=== PATIENT | female | born 1955 | race Caucasian/White ===

== ENCOUNTER 2017-02-26 13:51 | Observation (INO) | payer OTHER ==
[2017-02-26] MEDS ORDERED: Aspirin Low Dose CHEW TAB* 81 MG PO ONE (14:34)
[2017-02-26] MEDS ORDERED: NS 0.9% 1000 ML* 1,000 ML IV ONE (14:41)
[2017-02-26] MEDS ORDERED: Nitroglycerin TAB 0.4 MG* 0.4 MG TAB SL PRN (14:41)
--- NOTE | 2017-02-26 15:17 | RAD ---
HISTORY: Chest pain COMPARISONS: February 29, 2016 VIEWS:1: Single frontal portable view of the chest at 3 FINDINGS: LINES AND TUBES: A left-sided AICD pacer is noted. CARDIOMEDIASTINAL SILHOUETTE: The cardiomediastinal silhouette is normal for portable technique. PLEURA: The costophrenic angles are sharp. No pleural abnormalities are noted. LUNG PARENCHYMA: The lungs are clear. ABDOMEN: The upper abdomen is clear. There is no subphrenic gas. BONES AND SOFT TISSUES: No bone or soft tissue abnormalities are noted. IMPRESSION: NO ACTIVE CARDIOPULMONARY DISEASE.
[2017-02-26 15:21] LABS: Hematocrit 41 % (35-47); Mean Corpuscular HGB Conc 32 g/dl (31-36); Mean Corpuscular Hemoglobin 26 pg (27-31); Mean Corpuscular Volume 81 fL (80-97); Mean Platelet Volume 9 um3 (7.4-10.4); Red Blood Count 4.99 10^6/ul (4.0-5.4); Red Cell Distribution Width 15 % (10.5-15); White Blood Count 7.6 10^3/ul (3.5-10.8)
[2017-02-26 15:37] LABS: Albumin 3.9 g/dL (3.2-5.2); BUN/Creatinine Ratio 18.7 (8-20); Calcium 9.7 mg/dL (8.6-10.3); EGFR African American 80.6 (>60); EGFR Non-African American 62.6 (>60); Globulin 3.6 g/dL (2-4); Potassium 4.2 mmol/L (3.5-5.0); Total Bilirubin 0.5 mg/dL (0.2-1.0); Total Protein 7.5 g/dL (6.4-8.9)
[2017-02-26 15:40] LABS: Troponin I 0.01 ng/mL (<0.04)
[2017-02-26 16:10] LABS: TSH (Thyroid Stimulating Horm) 3.77 mcIU/mL (0.34-5.60)
[2017-02-26] MEDS ORDERED: Dextrose 50% Syringe 50 ML* 25 GM/50 ML SYRINGE IV PUSH PRN ×2 (16:29→16:30)
[2017-02-26] MEDS ORDERED: Insulin LISPRO* 1 UNITS UNIT SUBCUT ONE (16:30)
[2017-02-26] MEDS ORDERED: Insulin GLARGINE(*) 1 UNITS UNIT SUBCUT SCH (17:00)
[2017-02-26] MEDS: Magnesium Oxide TAB* 400 MG PO SCH (18:33)
--- NOTE | 2017-02-26 18:45 | HP ---
ADDENDUM NOW INCLUDED ON THIS REPORT CC: Gia Carson MD, [facility] * HISTORY AND PHYSICAL: DATE OF ADMISSION: 02/26/17 PRIMARY CARE PROVIDER: Gia Carson MD, from [facility]. CHIEF COMPLAINT: Heaviness and uncontrolled sugars as well as chest pain. HISTORY OF PRESENT ILLNESS: Kinjal Alcantar is a 61-year-old female with a history of diabetes, obstructive sleep apnea, cardiomyopathy with EF of 22%, who presents to the hospital complaining of feeling "like an elephant." The patient stated that she feels overall very heavy and weak. She stated that she had not been able to control her sugars for the past 3 days. She also stated that she developed sharp substernal chest pain not related to exercise and not pleuritic. Currently, she is chest pain free. She was evaluated in the emergency department. She was noted to have sugars in the 300 range. There are no other abnormalities noted. Her EKG is paced. Her troponin is unremarkable. She is going to be placed on overnight observation with diagnosis of chest pain. PAST MEDICAL HISTORY: 1. History of ischemic cardiomyopathy with EF of 22%. 2. History of coronary artery disease. 3. Status post pacemaker placement. 4. Obstructive sleep apnea, on CPAP. 5. COPD, not on oxygen. 6. Paroxysmal atrial fibrillation. 7. Severe tricuspid regurgitation. 8. Pulmonary hypertension. 9. Diabetes type 2. 10. History of bilateral DVTs. 11. History of IV CONTRAST ALLERGY. The patient develops rash. ALLERGIES: Include METFORMIN, causes chest pain and rash. JANUVIA causes chest pain and rash. TETRACYCLINE causes hives. ZOFRAN, itching. LATEX, rash. DEMEROL, unknown reaction. The patient also is allergic to DARVON, CEPHALOSPORIN, CONTRAST as described above, LOSARTAN, NIACIN, NONSTEROIDAL ANTIINFLAMMATORY MEDICATIONS, PENICILLIN, RAMIPRIL, ATORVASTATIN, PERTUSSIS VACCINE, DIPHTHERIA VACCINE, BEE STINGS. FAMILY HISTORY: Positive for sister and grandfather with DVTs. SOCIAL HISTORY: The patient quit smoking in 2005 after a history of 30-pack- year smoking. She drinks alcohol occasionally. She denies any drugs. She is and lives alone and her daughter, Kyung Alcantar, is her surrogate. REVIEW OF SYSTEMS: Please see history of present illness. In addition to the described above in history of present illness, the patient stated that she has occasional leg swelling which is chronic. She uses her CPAP at night. Ambulates without any problems. She denies any shortness of breath. She has had no problems with her bowels. She denies any nausea or vomiting and her appetite has been good. She denies any headache or visual changes. All the remaining 14 systems were reviewed with the patient and were otherwise negative. PHYSICAL EXAMINATION GENERAL: The patient is a very pleasant 61-year-old female with a BMI of 35 who is in no acute distress. Alert, awake, and oriented x3. VITAL SIGNS: Blood pressure 151/70, heart rate of 63 and regular, respiratory rate 20, oxygen saturation 100% on room air, temperature 97.6. HEENT: Head: Atraumatic, normocephalic. Eyes: Pupils equal, reactive to light and accommodation. Oropharynx clear. Mucosa moist. NECK: Supple. No JVD. No bruit bilaterally. RESPIRATORY: Clear to auscultation bilaterally. CARDIOVASCULAR: Regular rate and rhythm. No murmur. ABDOMEN: Soft, nontender. Bowel sounds present in all 4 quadrants. EXTREMITIES: There is trace bilateral pedal edema. Pulses are +2 bilaterally. No clubbing or cyanosis. NEUROLOGIC EVALUATION: Speech clear. Cranial nerves II through XII grossly intact. Motor strength 5/5 bilaterally. SKIN: On evaluation of the skin, no rashes noted. PSYCHIATRIC EVALUATION: Oriented x3 with no evidence of anxiety or depression. LABORATORY DATA AND STUDIES: Performed during the hospital stay included: The patient's EKG showed atrial sensed, ventricular paced heart rate of 70 beats per minute. It is comparable with prior EKG obtained a year ago on . The patient's portable chest x-ray, impression: "No active cardiopulmonary disease." White blood cell count of 7.6, hemoglobin of 13.0, hematocrit of 41, and platelets of 185,000. D-dimer of 267. PTT of 22. INR of 1.04. Sodium was 133, potassium 4.2, chloride 98, carbon dioxide 29, BUN 17, creatinine 0.91. Liver function tests were unremarkable. Sugars of 320. Lactic acid 1.1. Brain natriuretic peptide was 227. Troponin of 0.01. TSH of 3.7. ASSESSMENT AND PLAN: A 61-year-old female with a history of diabetes who presents to the hospital with complaints of overall generalized weakness and increased sugars as well as intermittent, sharp substernal chest pain. At this point, the patient has a history of deep venous thrombosis, but no pulmonary embolism and she is treated with Eliquis. In regards to the patient's chest pain, low probability for pulmonary embolism due to chronic anticoagulation. The patient stated that she is following the recommendations of treatment with Eliquis. She also is not hypoxic. She currently also does not have chest pain. At this point, she is going to be placed on overnight observation with followup troponins. She had a stress test documented in 2015 which showed large area of an infarct. Her EF was at that point 28% and the patient was high risk due to her low EF and large area of infarct, but no evidence of acute ischemia. In regards to the patient's uncontrolled diabetes, it is possible that she has an underlying infection, maybe urinary tract infection. Our urinalysis is still pending at the time of admission. She is going to be continued on her glyburide, insulin sliding scale, and insulin Lantus at increased dose from home at 30 units instead of 25. For her history of chronic systolic congestive heart failure, the patient is going to be continued on her diuretics. For DVT prophylaxis, the patient is already on Eliquis that is going to be continued. Code status is full. The patient's surrogate is her daughter. TIME SPENT: Approximately 65 minutes were spent on admission of this patient, more than half that time was spent [id number] with the patient during the interview and physical exam. ADDENDUM: DATE OF ADMISSION: 02/26/17 MEDICATIONS: Include: 1. Aspirin 81 mg daily. 2. Metoprolol succinate 100 mg b.i.d. 3. Glipizide 5 mg b.i.d. 4. Eliquis 2.5 mg b.i.d. 5. Furosemide 40 mg daily. 6. Crestor 40 mg daily. 7. Omeprazole 40 mg daily. 8. Aldactone 50 mg daily. 9. Lantus 25 units nightly. 10. Magnesium supplement on a daily basis. 11. Nitroglycerin tablet on a p.r.n. basis. [id number]/[facility] #: [id number]/[facility] #: [id number] [facility]
[2017-02-26 18:49] LABS: Hematocrit 39 % (35-47); Hemoglobin 12.6 g/dl (12.0-16.0); Mean Corpuscular HGB Conc 32 g/dl (31-36); Mean Corpuscular Hemoglobin 26 pg (27-31); Mean Corpuscular Volume 81 fL (80-97); Mean Platelet Volume 9 um3 (7.4-10.4); Red Blood Count 4.83 10^6/ul (4.0-5.4); Red Cell Distribution Width 15 % (10.5-15); White Blood Count 8.9 10^3/ul (3.5-10.8)
[2017-02-26] MEDS: Insulin LISPRO* 1 UNITS UNIT SUBCUT SCH ×2 (18:50→21:03)
[2017-02-26 19:04] LABS: BUN/Creatinine Ratio 18.2 (8-20); Calcium 9.3 mg/dL (8.6-10.3); EGFR African American 83.7 (>60); EGFR Non-African American 65.1 (>60); Potassium 3.9 mmol/L (3.5-5.0)
[2017-02-26 19:33] LABS: Urine Bacteria Absent (Absent); Urine Bilirubin Negative (Negative); Urine Glucose Negative (Negative); Urine Nitrite Negative (Negative)
--- NOTE | 2017-02-26 19:51 | HP ---
HISTORY AND PHYSICAL:* ADDENDUM: DATE OF ADMISSION: 02/26/17 MEDICATIONS: Include: 1. Aspirin 81 mg daily. 2. Metoprolol succinate 100 mg b.i.d. 3. Glipizide 5 mg b.i.d. 4. Eliquis 2.5 mg b.i.d. 5. Furosemide 40 mg daily. 6. Crestor 40 mg daily. 7. Omeprazole 40 mg daily. 8. Aldactone 50 mg daily. 9. Lantus 25 units nightly. 10. Magnesium supplement on a daily basis. 11. Nitroglycerin tablet on a p.r.n. basis. [id number]/[facility] [place] #: [id number] [facility]
[2017-02-26] MEDS: Acetaminophen TAB* 325 MG PO PRN (20:59)
[2017-02-26] MEDS: Metoprolol Succinate XL TAB* 100 MG PO SCH (21:00)
[2017-02-26] MEDS: glyBURIDE TAB* 5 MG PO SCH (21:00)
[2017-02-26] MEDS ORDERED: Omeprazole CAP* 20 MG PO SCH (21:00)
[2017-02-26] MEDS ORDERED: CMCS Rosuvastatin (NF) 20 MG TAB PO SCH (21:00)
[2017-02-26] MEDS: Apixaban* 2.5 MG TAB PO SCH (21:02)
[2017-02-26] MEDS: Docusate CAP* 100 MG PO SCH (21:02)
--- NOTE | 2017-02-27 01:50 | ED ---
Jared Bradley Alfonso, scribed for Belkys Menjivar MD on 02/26/17 at 1416 . HPI Chest Pain - HPI Summary HPI Summary: This patient is a 61 year old female presenting to [facility] for sharp and diffuse ant chest pressure since earlier today, "like an elephant". The pain does not radiate. Pain is currently moderate, ranked 5/10. She reports bilateral foot cramping, hyperglycemia, and generalized weakness. Sx aggravated and alleviated by nothing. She did not take nitroglycerin today. Her self-reported medication list includes 81 mg aspirin, Metoprolol succinate, Glimepiride, Eliquids, Furosemide, Crestor, Omeprazole, Spirolactone and Lantus. Pt has a pacemaker. - History of Current Complaint Chief Complaint: EDChestPainROMI Hx Obtained From: Patient Onset/Duration: Started Hours Ago, Still Present Timing: Constant Initial Severity: Moderate Current Severity: Moderate Pain Intensity: 5 Pain Scale Used: 0-10 Numeric Chest Pain Location: Mid Sternal Chest Pain Radiates: No Character: Pressure/Squeezing Aggravating Factor(s): Nothing Alleviating Factor(s): Nothing Associated Signs and Symptoms: Positive: Weakness - Generalized, Other: - Foot cramping, hyperglycemia - Additional Pertinent History Primary Care Physician: [id number] - Allergy/Home Medications Allergies/Adverse Reactions: Allergies Allergy/AdvReac Type Severity Reaction Status Date / Time Metformin Allergy Severe CHEST PAIN Verified 02/26/16 16:11 & RASH Sitagliptin [From Januvia] Allergy Severe CHEST PAIN Verified 02/26/16 16:11 & RASH Tetracyclines Allergy Severe Hives Verified 02/26/16 16:11 Ondansetron [From Zofran] Allergy Mild Itching Verified 02/26/16 16:11 Latex Allergy Unknown Unknown Verified 02/26/16 16:11 Reaction Details Meperidine [From Demerol HCl] Allergy Unknown Unknown Verified 02/26/16 16:11 Reaction Details Propoxyphene [From Darvon] Allergy Unknown Unknown Verified 02/26/16 16:11 Reaction Details Cephalosporins Allergy Anaphylatic Verified 02/26/16 16:11 Shock Iodinated Diagnostic Agents Allergy Unknown Verified 02/26/16 16:11 Reaction Details Losartan Allergy Unknown Verified 02/26/16 16:11 Reaction Details Niacin [From Niaspan] Allergy Unknown Verified 02/26/16 16:11 Reaction Details NSAIDs Allergy See Comment Verified 02/26/16 16:11 Penicillin G Allergy Hives/Diff. Verified 02/26/16 16:11 Breathing/I tching Penicillin V Allergy Hives Verified 02/26/16 16:11 Ramipril Allergy Unknown Verified 02/26/16 16:11 Reaction Details Atorvastatin AdvReac Intermediate Muscle Ache Verified 02/26/16 16:11 Acellular Pertussis AdvReac Swelling Verified 02/26/16 16:11 [From Boostrix] Diphtheria Toxoid AdvReac Swelling Verified 02/26/16 16:11 [From Boostrix] Tetanus Toxoid, Adsorbed AdvReac Swelling Verified 02/26/16 16:11 [From Boostrix] BEE STINGS Allergy Severe Unknown Uncoded 05/30/15 16:08 Reaction Details CONTRAST DYE Allergy Unknown Unknown Uncoded 05/30/15 16:10 Reaction Details Home Medications: Home Medications Metoprolol Succinate XL TAB* [Toprol XL TAB*] 100 mg PO BID 02/26/17 [History Confirmed 02/26/17] Omeprazole CAP* [Prilosec CAP* 20 MG] 40 mg PO BEDTIME 02/26/17 [History Confirmed 02/26/17] Rosuvastatin (NF) [Crestor (NF)] 40 mg PO BEDTIME 02/26/17 [History Confirmed ] PMH/Surg Hx/FS Hx/Imm Hx Endocrine/Hematology History: Reports: Hx Diabetes, Hx Anemia Denies: Hx Thyroid Disease Cardiovascular History: Reports: Hx Angina, Hx Auto Implanted Cardiovert Defib, Hx Congestive Heart Failure, Hx Coronary Artery Disease - STENT, Hx Hypercholesterolemia, Hx Hypertension, Hx Myocardial Infarction, Hx Pacemaker/ ICD Respiratory History: Reports: Hx Chronic Obstructive Pulmonary Disease (COPD), Hx Sleep Apnea - CPAP Denies: Hx Asthma, Hx Chronic Bronchitis GI History: Reports: Other GI Disorders - periods of chronic diarrhea Denies: Hx Ulcer History: Denies: Hx Renal Disease Musculoskeletal History: Reports: Hx Arthritis - HANDS, RT ANKLE, SHOULDERS Sensory History: Reports: Hx Contacts or Glasses Denies: Hx Hearing Aid Opthamlomology History: Reports: Hx Contacts or Glasses Neurological History: Reports: Hx Headaches, Hx Migraine Psychiatric History: Reports: Hx Depression - NO MEDS - Surgical History Surgery Procedure, Year, and Place: 2012 removal of screw in left thumb and trigger release. 2010 PACEMAKER/DEFIB REPLACED [place]. 2006 CARDIAC STENT [place]. 2007 PACEMAKER/DEFIB [place]. 1998 HYSTERECTOMY [place]. 1983 & 1985 C -SECTIONS [place]. 1976 [place]CTOMY [place]. 1973 TONSILECTOMY [place] Hx Anesthesia Reactions: No - STATES SHE GOES INTO CHF EASILY - Immunization History Date of Tetanus Vaccine: 06/2012 Date of Influenza Vaccine: Fall 2013 Infectious Disease History: No Infectious Disease History: Denies: Hx Clostridium Difficile, Hx Hepatitis, Hx Human Immunodeficiency Virus (HIV), Hx of Known/Suspected MRSA, Hx Shingles, Hx Tuberculosis, Hx Known/ Suspected VRE, Hx Known/Suspected VRSA, History Other Infectious Disease, Traveled Outside the [place] in Last 30 Days - Family History Known Family History: Positive: Other - CANCER, ETOH ABUSE - Social History Alcohol Use: Rare Hx Substance Use: No Substance Use Type: Reports: None Hx Tobacco Use: Yes Smoking Status (MU): Former Smoker Type: Cigarettes Amount Used/How Often: 1 PPD, 3 cigarettes/day by the end Length of Time of Smoking/Using Tobacco: PT states during the time she smoked she stopped off and on . Have You Smoked in the Last Year: No Review of Systems Positive: Fatigue Positive: Chest Pain - pressure, heaviness, Other - Hyperglycemia Positive: Shortness Of Breath Positive: Other - Bilateral foot cramping Skin: Negative Positive: Weakness - Generalized Psychological: Normal All Other Systems Reviewed And Are Negative: Yes Physical Exam Triage Information Reviewed: Yes Vital Signs On Initial Exam: Initial Vitals Temp Pulse Resp BP Pulse Ox 98.1 F 70 20 151/70 99 02/26/17 13:59 02/26/17 13:59 02/26/17 13:59 02/26/17 13:59 02/26/17 13:59 Vital Signs Reviewed: Yes Appearance: Positive: Ill-Appearing, Pain Distress, Obese Skin: Positive: Warm, Dry Head/Face: Positive: Normal Head/Face Inspection Eyes: Positive: EOMI, Conjunctiva Clear ENT: Positive: Normal ENT inspection, Hearing grossly normal. Negative: Muffled /hoarse voice Neck: Positive: Supple, Nontender Respiratory/Lung Sounds: Positive: Clear to Auscultation, Breath Sounds Present Cardiovascular: Positive: RRR, Pulses are Symmetrical in both Upper and Lower Extremities. Negative: Leg Edema Left, Leg Edema Right Abdomen Description: Positive: Nontender, Soft. Negative: Distended, Guarding Bowel Sounds: Positive: Present Musculoskeletal: Positive: Strength/ROM Intact. Negative: Edema Left, Edema Right Neurological: Positive: Sensory/Motor Intact. Negative: Facial Droop, Focal Deficit @, Slurred Speech Psychiatric: Positive: Normal Diagnostics - Vital Signs Vital Signs Temp Pulse Resp BP Pulse Ox 02/26/17 14:03 97.6 F 63 20 151/70 100 02/26/17 13:59 98.1 F 70 20 151/70 99 - Laboratory Lab Results: Lab Results 02/26/17 02/26/17 02/26/17 Range/Units 14:03 15:12 15:12 WBC 7.6 (3.5-10.8) 10^3/ul RBC 4.99 (4.0-5.4) 10^6/ul Hgb 13.0 (12.0-16.0) g/dl Hct 41 (35-47) % MCV 81 (80-97) fL MCH 26 L (27-31) pg MCHC 32 (31-36) g/dl RDW 15 (10.5-15) % Plt Count 185 (150-450) 10^3/ul MPV 9 (7.4-10.4) um3 Neut % (Auto) 69.8 (38-83) % Lymph % (Auto) 23.0 L (25-47) % [place] % (Auto) 5.0 (1-9) % Eos % (Auto) 1.0 (0-6) % Baso % (Auto) 1.2 (0-2) % Absolute Neuts (auto) 5.3 (1.5-7.7) 10^3/ul Absolute Lymphs (auto) 1.7 (1.0-4.8) 10^3/ul Absolute Monos (auto) 0.4 (0-0.8) 10^3/ul Absolute Eos (auto) 0.1 (0-0.6) 10^3/ul Absolute Basos (auto) 0.1 (0-0.2) 10^3/ul Absolute Nucleated RBC 0 10^3/ul Nucleated RBC % 0.1 INR (Anticoag Therapy) (0.89-1.11) APTT (26.0-36.3) seconds D-Dimer, Quantitative (Less Than 230) ng/mL Sodium 133 (133-145) mmol/L Potassium 4.2 (3.5-5.0) mmol/L Chloride 98 L (101-111) mmol/L Carbon Dioxide 29 (22-32) mmol/L Anion Gap 6 (2-11) mmol/L BUN 17 (6-24) mg/dL Creatinine 0.91 (0.51-0.95) mg/dL Est GFR ( Amer) 80.6 (>60) Est GFR (Non-Af Amer) 62.6 (>60) BUN/Creatinine Ratio 18.7 (8-20) Glucose 267 H (70-100) mg/dL POC Glucose (mg/dL) 320 H (74-106) mg/dL Lactic Acid (0.5-2.0) mmol/L Calcium 9.7 (8.6-10.3) mg/dL Magnesium 2.0 (1.9-2.7) mg/dL Total Bilirubin 0.50 (0.2-1.0) mg/dL AST 15 (13-39) U/L ALT 17 (7-52) U/L Alkaline Phosphatase 92 (34-104) U/L Total Creatine Kinase 56 (10-223) U/L CK-MB (CK-2) 2.6 (0.6-6.3) ng/mL Troponin I 0.01 (<0.04) ng/mL B-Natriuretic Peptide ( - 100) pg/mL Total Protein 7.5 (6.4-8.9) g/dL Albumin 3.9 (3.2-5.2) g/dL Globulin 3.6 (2-4) g/dL Albumin/Globulin Ratio 1.1 (1-3) TSH 3.77 (0.34-5.60) mcIU/mL 02/26/17 02/26/17 02/26/17 Range/Units 15:12 15:12 15:12 WBC (3.5-10.8) 10^3/ul RBC (4.0-5.4) 10^6/ul Hgb (12.0-16.0) g/dl Hct (35-47) % MCV (80-97) fL MCH (27-31) pg MCHC (31-36) g/dl RDW (10.5-15) % Plt Count (150-450) 10^3/ul MPV (7.4-10.4) um3 Neut % (Auto) (38-83) % Lymph % (Auto) (25-47) % [place] % (Auto) (1-9) % Eos % (Auto) (0-6) % Baso % (Auto) (0-2) % Absolute Neuts (auto) (1.5-7.7) 10^3/ul Absolute Lymphs (auto) (1.0-4.8) 10^3/ul Absolute Monos (auto) (0-0.8) 10^3/ul Absolute Eos (auto) (0-0.6) 10^3/ul Absolute Basos (auto) (0-0.2) 10^3/ul Absolute Nucleated RBC 10^3/ul Nucleated RBC % INR (Anticoag Therapy) 1.04 (0.89-1.11) APTT 22.0 L (26.0-36.3) seconds D-Dimer, Quantitative 267 H (Less Than 230) ng/mL Sodium (133-145) mmol/L Potassium (3.5-5.0) mmol/L Chloride (101-111) mmol/L Carbon Dioxide (22-32) mmol/L Anion Gap (2-11) mmol/L BUN (6-24) mg/dL Creatinine (0.51-0.95) mg/dL Est GFR ( Amer) (>60) Est GFR (Non-Af Amer) (>60) BUN/Creatinine Ratio (8-20) Glucose (70-100) mg/dL POC Glucose (mg/dL) (74-106) mg/dL Lactic Acid 1.1 (0.5-2.0) mmol/L Calcium (8.6-10.3) mg/dL Magnesium (1.9-2.7) mg/dL Total Bilirubin (0.2-1.0) mg/dL AST (13-39) U/L ALT (7-52) U/L Alkaline Phosphatase (34-104) U/L Total Creatine Kinase (10-223) U/L CK-MB (CK-2) (0.6-6.3) ng/mL Troponin I (<0.04) ng/mL B-Natriuretic Peptide 227 H ( - 100) pg/mL Total Protein (6.4-8.9) g/dL Albumin (3.2-5.2) g/dL Globulin (2-4) g/dL Albumin/Globulin Ratio (1-3) TSH (0.34-5.60) mcIU/mL Result Diagrams: 02/26/17 18:42 02/26/17 18:42 Lab Statement: Any lab studies that have been ordered have been reviewed, and results considered in the medical decision making process. - Radiology CXR Xray Interpretation: No Acute Changes - NO ACTIVE CARDIOPULMONARY DISEASE. Radiology Interpretation Completed By: Radiologist - EKG 1403 Cardiac Rate: NL - 70 bpm EKG Interpretation: 100% paced rhythm Chest Pain Course/Dx - Course Assessment/Plan: Pt is a 61 y/o F who presents to ED c/o ant chest pressure without radiation since earlier today. Pain is currently moderate, ranked 5/10, relieved by one NTG in ED She reports bilateral foot cramping, hyperglycemia in the 200-300 range at home, and generalized weakness. CXR and EKG reveals no acute findings (100% paced). Initial trop is 0.01. Pt will be admitted for obs due to her chest pain and known CAD, and elevated glucoses. Allergies noted. Pt medications reviewed this visit. - Chest Pain Differential Diagnosis/HQI/PQRI: Acute IL, ACS, Angina, GI Disease - Diagnoses Provider Diagnoses: Chest pain, Hyperglycemia due to type 2 diabetes mellitus Discharge - Discharge Plan Condition: Good Disposition: ADMITTED TO [facility] The documentation as recorded by the Jared hobbs Alfonso accurately reflects the service I personally performed and the decisions made by , Belkys Menjivar MD.
[2017-02-27 08:36] VITALS: BP 132/58
[2017-02-27] MEDS: Metoprolol Succinate XL TAB* 100 MG PO SCH (08:36)
[2017-02-27] MEDS: Acetaminophen TAB* 325 MG PO PRN (08:36)
[2017-02-27] MEDS: Magnesium Oxide TAB* 400 MG PO SCH (08:37)
[2017-02-27] MEDS: Apixaban* 2.5 MG TAB PO SCH (08:37)
[2017-02-27] MEDS: Insulin LISPRO* 1 UNITS UNIT SUBCUT SCH (08:38)
[2017-02-27] MEDS: Docusate CAP* 100 MG PO SCH (08:38)
[2017-02-27] MEDS: glyBURIDE TAB* 5 MG PO SCH (08:38)
[2017-02-27] MEDS ORDERED: Spironolactone TAB* 25 MG PO SCH (09:00)
[2017-02-27] MEDS ORDERED: Furosemide TAB* 40 MG PO SCH (09:00)
[2017-02-27] MEDS ORDERED: Aspirin EC Low Dose* 81 MG TAB.EC PO SCH (09:00)
--- NOTE | 2017-02-27 09:36 | PN ---
Subjective Date of Service: 02/27/17 Interval History: Patient seen and examined at bedside. Pt states that she is feeling well today. Denies further chest discomfort and weakness. Denies fever, chills, shortness of breath, chest discomfort, N/V/D, weakness, or urinary symptoms. Pt states that she has been under a lot of stress lately and her glucose is elevated when she is stressed. Tele: Dual paced, rate 60-70's. 2 short bursts of nonsustained v tach noted (4 beats and 9 beats). Family History: Unchanged from Admission Social History: Unchanged from Admission Past Medical History: Unchanged from Admission Objective Active Medications: Acetaminophen (Tylenol Tab*) 650 mg PO Q4H PRN Reason: FEVER/PAIN Apixaban (Eliquis) 2.5 mg PO BID EMELYN Aspirin (Aspirin Ec Low Dose*) 81 mg PO DAILY EMELYN Dextrose (D50w Syringe 50 Ml*) 12.5 gm IV PUSH .FOR FS < 60 - SS PRN Reason: FS < 60 Docusate Sodium (Colace Cap*) 100 mg PO BID EMELYN Furosemide (Lasix Tab*) 40 mg PO QAM EMELYN Glyburide (Diabeta Tab*) 5 mg PO BID [facility] Insulin Glargine (Lantus(*)) 30 units SUBCUT Q24H EMELYN Insulin Human Lispro (Humalog*) 0 units SUBCUT ACHS [facility] Reason: Protocol Magnesium Oxide (Magox 400 Tab*) 800 mg PO DAILY EMELYN Metoprolol Succinate (Toprol Xl Tab*) 100 mg PO BID EMELYN Omeprazole (Prilosec Cap*) 40 mg PO BEDTIME EMELYN Rosuvastatin Calcium (Crestor (Nf)) 40 mg PO BEDTIME EMELYN Spironolactone (Aldactone Tab*) 50 mg PO QAM [facility] Vital Signs 02/26/17 02/26/17 02/26/17 16:42 17:00 17:05 Temperature 97.5 F Pulse Rate 70 69 Respiratory 22 17 Rate Blood Pressure 149/86 (mmHg) O2 Sat by Pulse 95 97 Oximetry 02/26/17 02/26/17 02/26/17 18:00 20:00 20:24 Temperature 97.4 F 98.4 F Pulse Rate 61 59 Respiratory 18 16 20 Rate Blood Pressure 139/69 123/51 (mmHg) O2 Sat by Pulse 98 97 Oximetry 02/27/17 02/27/1702/27/17 00:31 00:40 04:16 Temperature 97.4 F 97.6 F Pulse Rate 60 59 Respiratory 16 16 Rate Blood Pressure 92/54 105/50 105/55 (mmHg) O2 Sat by Pulse 96 98 Oximetry 02/27/17 07:28 Temperature 97.7 F Pulse Rate 60 Respiratory 16 Rate Blood Pressure 132/58 (mmHg) O2 Sat by Pulse 98 Oximetry Oxygen Devices in Use Now: None Appearance: NAD, sitting up in bed Eyes: No Scleral Icterus Ears/Nose/Mouth/Throat: Mucous Membranes Moist Respiratory: Symmetrical Chest Expansion and Respiratory Effort, Clear to Auscultation - , diminished Cardiovascular: NL Sounds; No Murmurs; No JVD, RRR Abdominal: NL Sounds; No Tenderness; No Distention Extremities: No Edema Skin: No Rash or Ulcers Neurological: Alert and Oriented x 3, NL Muscle Strength and Tone Lines/Tubes/Other Access: Clean, Dry and Intact Peripheral IV - site benign Nutrition: Taking PO's Result Diagrams: 02/26/17 18:42 02/26/17 18:42 Additional Lab and Data: Assess/Plan/Problems-Billing Assessment: Ms. Alcantar is a 61 yo female with PMH significant for ischemic cardiomyopathy , CAD, COPD, and DM who presented to the emergency room with complaints of generalized weakness and elevated glucose with intermittent sharp sternal chest discomfort. - Patient Problems (1) Chest pain Code(s): R07.9 - CHEST PAIN, UNSPECIFIED SNOMED Code(s): 13217971 Comment: - Denies further chest discomfort - Low probability for PE as Pt is on chronic eliquis and not hypoxic - Troponin flat at 0.01 - Continue home medications (2) Generalized weakness Code(s): R53.1 - WEAKNESS SNOMED Code(s): 53982066 Comment: - Resolved (3) Diabetes mellitus Code(s): E11.9 - TYPE 2 DIABETES MELLITUS WITHOUT COMPLICATIONS SNOMED Code(s) : 07996674 Comment: - Glucose improving with increase in Lantus - Patient intolerant of several antihyperglycemic agents - Continue glyburide and Lantus (4) Nonsustained ventricular tachycardia Code(s): I47.2 - VENTRICULAR TACHYCARDIA SNOMED Code(s): 692641099 Comment: - Pt has ICD/Pacer - Continue metoprolol (5) Paroxysmal a-fib Code(s): I48.0 - PAROXYSMAL ATRIAL FIBRILLATION SNOMED Code(s): 515913541 Comment: - A/V Paced rhythm - Continue metoprolol and eliquis (6) HLD (hyperlipidemia) Code(s): E78.5 - HYPERLIPIDEMIA, UNSPECIFIED SNOMED Code(s): 33174701 Comment: - Continue statin (7) HTN (hypertension) Code(s): I10 - ESSENTIAL (PRIMARY) HYPERTENSION SNOMED Code(s): 82263303 Comment: - Controlled - Continue home meds (8) Ischemic cardiomyopathy Code(s): I25.5 - ISCHEMIC CARDIOMYOPATHY SNOMED Code(s): 182740285 Comment: - Stable, appears euvolemic - Continue home meds (9) Moderate to severe pulmonary hypertension Code(s): I27.2 - OTHER SECONDARY PULMONARY HYPERTENSION SNOMED Code(s): 30105790 (10) DVT prophylaxis Code(s): XVS0921 - SNOMED Code(s): 904079834 Comment: - Eliquis (11) Full code status Code(s): Z78.9 - OTHER SPECIFIED HEALTH STATUS SNOMED Code(s): 478221594 Status and Disposition: OBV. Stable for discharge to home today.
--- NOTE | 2017-02-28 05:02 | DS ---
CC: Dr. Gia Carson; Dr. Hermann Valera * DISCHARGE SUMMARY: DATE OF ADMISSION: 02/26/17 DATE OF DISCHARGE: 02/27/17 ATTENDING PHYSICIAN: Dr. Leonard Denis * (dictated by Kennedi Chirinos NP) PRIMARY CARE PROVIDER: Dr. Gia Carson. PRIMARY DIAGNOSES: 1. Noncardiac chest pain. 2. Hyperglycemia. SECONDARY DIAGNOSES: 1. Ischemic cardiomyopathy, last known EF 22%. 2. Coronary artery disease. STUDIES WHILE IN THE HOSPITAL: Chest x-ray 02/26/17. Radiologist impression: No active cardiopulmonary disease. DISCHARGE MEDICATIONS: Continued home medications: 1. Nitroglycerin 0.4 mg sublingual every 5 minutes as needed for chest pain. 2. Spironolactone 50 mg oral every morning. 3. Furosemide 40 mg oral every morning. 4. Glyburide 10 mg oral twice daily. 5. Tylenol/codeine 1 tablet oral daily at bedtime as needed for pain. 6. Aspirin 81 mg oral daily. 7. 40 mg oral daily at bedtime. 8. Metoprolol succinate XL 100 mg oral twice daily. 9. Omeprazole 40 mg oral daily at bedtime. 10. Eliquis 2.5 mg oral twice daily. Changed home medications: 1. Lantus insulin 30 units subcutaneous daily. 2. Magnesium oxide 400 mg oral daily. HISTORY OF PRESENT ILLNESS/HOSPITAL COURSE: Ms. Alcantar is a 61-year-old female with past medical history significant for diabetes mellitus, obstructive sleep apnea, cardiomyopathy with EF of 22% who presented to the hospital with complaints of feeling "like an elephant is sitting on her chest." The patient also complained of generalized weakness. The patient states that her blood glucose has been elevated for the last 3 days and difficult to control. The patient states that she has been under a lot of stress recently, has been packing to move, but does not feel that she is overdone any movement and does not feel that her pain is muscular. The patient presented to the emergency room for further evaluation of her symptoms. While in the emergency room, the patient was chest pain free. She was noted to have glucoses in the 300 range. She had no other abnormalities noted. The patient's EKG showed a paced rhythm. Her troponin was initially 0.01. Hospitalists were asked to evaluate the patient for admission. While in the hospital, the patient was observed overnight on telemetry. She was noted to be in AV paced rhythm. The patient continued to be chest pain free and after increasing her Lantus from 25 units to 30 units in the evening, the patient's glucoses have started to improve. The patient reports being under a lot of stress, she is needing to move out of her house and has been packing and has been having some issues with her family. The patient states when she is under emotional stress her glucose often elevates. Ms. Alcantar is stable for discharge to home today. Ms. Alcantar is stable for discharge to home today. Vital signs are as follows : Temperature 97.7, heart rate 60, respiratory rate 16, O2 sat 98% on room air, blood pressure 132/58. DISCHARGE PLAN: Ms. Alcantar will be discharged to home. ACTIVITY: As tolerated. DIET: She should be on a heart-healthy low-sodium diet. As far as the patient's chest discomfort, I do not suspect that this is ACS. I suspect this is more related to stress. The patient has been encouraged to work on stress management at home. As far as the patient's hyperglycemia, she has had her Lantus increased to 30 units daily. She has been encouraged to monitor her glucoses at home. For the patient's chronic systolic heart failure , she has been continued on her home diuretics. The patient has been encouraged to call her primary care provider, Dr. Gia Carson, for followup appointment this week. The patient should also follow up with her locomotive lubricating systems clerk Dr. Valera as needed. The patient has been asked to return to the emergency room for any chest pain, shortness of breath. This is a summarized report of a complex medical history and hospital stay. For further details, please see the entire medical record. TIME SPENT: Time for this discharge was 50 minutes and greater than half of that was spent [id number] with the patient, discussing discharge plans and instructions. CONDITION ON DISCHARGE: Stable. KENNEDI BURNETTE, EDDY [id number]/[facility] #: [id number] PATSY
== END 2017-02-27 10:45 | disposition home or self-care (01) ==
LOC: ED 13:51 → MEDTELE 16:04
PROVIDERS: ADMIT Internal Medicine; ATTEND Internal Medicine
DX: R07.89 Other chest pain (principal); E11.65 Type 2 diabetes mellitus with hyperglycemia; Z79.84 Long term (current) use of oral hypoglycemic drugs; I25.5 Ischemic cardiomyopathy; I25.10 Atherosclerotic heart disease of native coronary artery without angina pectoris; Z95.0 Presence of cardiac pacemaker; G47.33 Obstructive sleep apnea (adult) (pediatric); J44.9 Chronic obstructive pulmonary disease, unspecified; R53.1 Weakness; R06.02 Shortness of breath; I48.0 Paroxysmal atrial fibrillation; Z79.01 Long term (current) use of anticoagulants; R94.31 Abnormal electrocardiogram [ECG] [EKG]; I27.2 Other secondary pulmonary hypertension; Z86.718 Personal history of other venous thrombosis and embolism; Z88.7 Allergy status to serum and vaccine; Z91.041 Radiographic dye allergy status; Z88.1 Allergy status to other antibiotic agents; Z88.5 Allergy status to narcotic agent; Z91.040 Latex allergy status; Z87.891 Personal history of nicotine dependence
CPT/HCPCS: 36415; 71010; 80048; 80053; 81003; 81015; 82550; 82553; 83605; 83735; 83880; 84443; 84484; 85025; 85379; 85610; 85730; 87086; 93005; 96360; 99283; A9270-GY; G0378

== ENCOUNTER 2017-05-05 19:05 | Observation (INO) | payer OTHER ==
[2017-05-05] MEDS ORDERED: Nitroglycerin TAB 0.4 MG* 0.4 MG TAB SL ONE (19:39)
[2017-05-05] MEDS ORDERED: Aspirin Low Dose CHEW TAB* 81 MG PO ONE (19:39)
[2017-05-05] MEDS: NS 0.9% 1000 ML* 1,000 ML IV SCH (19:57)
[2017-05-05 19:59] LABS: Hematocrit 40 % (35-47); Hemoglobin 12.6 g/dl (12.0-16.0); Mean Corpuscular HGB Conc 32 g/dl (31-36); Mean Corpuscular Hemoglobin 26 pg (27-31); Mean Corpuscular Volume 82 fL (80-97); Mean Platelet Volume 9 um3 (7.4-10.4); Red Blood Count 4.87 10^6/ul (4.0-5.4); Red Cell Distribution Width 16 % (10.5-15); White Blood Count 8.1 10^3/ul (3.5-10.8)
--- NOTE | 2017-05-05 20:00 | RAD ---
INDICATION: Chest pain. COMPARISON: Comparison is made with a prior chest x-ray study from February 26, 2017. TECHNIQUE: A portable view of the chest was obtained. FINDINGS: There is a multilead transvenous pacemaker defibrillator present. The heart is within normal limits in size. The lungs are underinflated and clear. No pleural effusion is seen. IMPRESSION: NO EVIDENCE FOR ACUTE FINDING.
[2017-05-05 20:01] LABS: Comments Flag Yes
[2017-05-05 20:02] LABS: Add Diff/Slide Review? Slide Review Added
[2017-05-05 20:15] LABS: Albumin 3.9 g/dL (3.2-5.2); BUN/Creatinine Ratio 16.2 (8-20); C Reactive Protein 11.01 mg/L (< 5.00); Calcium 9.3 mg/dL (8.6-10.3); EGFR African American 64.1 (>60); EGFR Non-African American 49.8 (>60); Globulin 3.5 g/dL (2-4); Potassium 3.6 mmol/L (3.5-5.0); Total Bilirubin 0.6 mg/dL (0.2-1.0); Total Protein 7.4 g/dL (6.4-8.9)
[2017-05-05 20:18] LABS: Troponin I 0.01 ng/mL (<0.04)
[2017-05-05 20:42] LABS: TSH (Thyroid Stimulating Horm) 3.1 mcIU/mL (0.34-5.60)
--- NOTE | 2017-05-05 20:56 | ED ---
Jared Bradley Alfonso, scribed for Santana Jean MD on 05/05/17 at 1939 . HPI Chest Pain - HPI Summary HPI Summary: This patient is a 61 year old F presenting to [facility] with a chief complaint of mid sternal CP since 1814 today. The CP is an intermittent heaviness which radiates to her arms. The patient rates the pain 5/10 in severity. Symptoms aggravated and alleviated by nothing. Patient reports SOB, nausea, headache, photophobia, and arm heaviness. Patient denies diaphoresis and abdominal pain. She reports taking ASA 81 mg every morning and eliquis 2.5 mg BID. PMHx of DM, DVT, CAD ([place] x3 and stents), COPD, headaches, and depression. - History of Current Complaint Chief Complaint: EDChestPainROMI Time Seen by Provider: 05/05/17 19:30 Hx Obtained From: Patient Onset/Duration: Started Minutes Ago - 1814 today, Still Present Timing: Intermittent Initial Severity: Moderate Current Severity: Moderate Pain Intensity: 5 Pain Scale Used: 0-10 Numeric Chest Pain Location: Mid Sternal Chest Pain Radiates: Yes Chest Pain Radiates To:: Arm - bilateral Character: Heaviness Aggravating Factor(s): Nothing Alleviating Factor(s): Nothing Associated Signs and Symptoms: Positive: Other: - Patient reports SOB, nausea, headache, photophobia, and arm heaviness. Patient denies diaphoresis and abdominal pain. - Additional Pertinent History Primary Care Physician: [id number] - Allergy/Home Medications Allergies/Adverse Reactions: Allergies Allergy/AdvReac Type Severity Reaction Status Date / Time Metformin Allergy Severe CHEST PAIN Verified 02/26/16 16:11 & RASH Sitagliptin [From Januvia] Allergy Severe CHEST PAIN Verified 02/26/16 16:11 & RASH Tetracyclines Allergy Severe Hives Verified 02/26/16 16:11 Ondansetron [From Zofran] Allergy Mild Itching Verified 02/26/16 16:11 Latex Allergy Unknown Unknown Verified 02/26/16 16:11 Reaction Details Meperidine [From Demerol HCl] Allergy Unknown Unknown Verified 02/26/16 16:11 Reaction Details Propoxyphene [From Darvon] Allergy Unknown Unknown Verified 02/26/16 16:11 Reaction Details Cephalosporins Allergy Anaphylatic Verified 02/26/16 16:11 Shock Iodinated Diagnostic Agents Allergy Unknown Verified 02/26/16 16:11 Reaction Details Losartan Allergy Unknown Verified 02/26/16 16:11 Reaction Details Niacin [From Niaspan] Allergy Unknown Verified 02/26/16 16:11 Reaction Details NSAIDs Allergy See Comment Verified 02/26/16 16:11 Penicillin G Allergy Hives/Diff. Verified 02/26/16 16:11 Breathing/I tching Penicillin V Allergy Hives Verified 02/26/16 16:11 Ramipril Allergy Unknown Verified 02/26/16 16:11 Reaction Details Atorvastatin AdvReac Intermediate Muscle Ache Verified 02/26/16 16:11 Acellular Pertussis AdvReac Swelling Verified 02/26/16 16:11 [From Boostrix] Diphtheria Toxoid AdvReac Swelling Verified 02/26/16 16:11 [From Boostrix] Tetanus Toxoid, Adsorbed AdvReac Swelling Verified 02/26/16 16:11 [From Boostrix] BEE STINGS Allergy Severe Unknown Uncoded 05/30/15 16:08 Reaction Details CONTRAST DYE Allergy Unknown Unknown Uncoded 05/30/15 16:10 Reaction Details PMH/Surg Hx/FS Hx/Imm Hx Endocrine/Hematology History: Reports: Hx Diabetes, Hx Anemia Denies: Hx Thyroid Disease Cardiovascular History: Reports: Hx Angina, Hx Auto Implanted Cardiovert Defib, Hx Congestive Heart Failure, Hx Coronary Artery Disease - STENT, Hx Deep Vein Thrombosis, Hx Hypercholesterolemia, Hx Hypertension, Hx Myocardial Infarction, Hx Pacemaker/ICD, Other Cardiovascular Problems/Disorders - CAD Respiratory History: Reports: Hx Chronic Obstructive Pulmonary Disease (COPD), Hx Sleep Apnea - CPAP, Other Respiratory Problems/Disorders - chronic shortness of breath Denies: Hx Asthma, Hx Chronic Bronchitis GI History: Reports: Other GI Disorders - periods of chronic diarrhea Denies: Hx Ulcer History: Denies: Hx Renal Disease Musculoskeletal History: Reports: Hx Arthritis - HANDS, RT ANKLE, SHOULDERS Sensory History: Reports: Hx Contacts or Glasses Denies: Hx Hearing Aid Opthamlomology History: Reports: Hx Contacts or Glasses Neurological History: Reports: Hx Headaches, Hx Migraine Psychiatric History: Reports: Hx Depression - NO MEDS - Surgical History Surgery Procedure, Year, and Place: 2012 removal of screw in left thumb and trigger release. 2010 PACEMAKER/DEFIB REPLACED [place]. 2006 CARDIAC STENT [place]. 2007 PACEMAKER/DEFIB [place]. 1999 [place]STERECTOMY [place]. 1983 & 1985 C [place]. [address] [place]. 1973 TONSILECTOMY [place] Hx Anesthesia Reactions: No - STATES SHE GOES INTO CHF EASILY - Immunization History Date of Tetanus Vaccine: 06/2012 Date of Influenza Vaccine: Fall 2013 Infectious Disease History: Denies: Hx Clostridium Difficile, Hx Hepatitis, Hx Human Immunodeficiency Virus (HIV), Hx of Known/Suspected MRSA, Hx Shingles, Hx Tuberculosis, Hx Known/ Suspected VRE, Hx Known/Suspected VRSA, History Other Infectious Disease, Traveled Outside the [place] in Last 30 Days - Family History Known Family History: Positive: Other - CANCER, ETOH ABUSE - Social History Alcohol Use: Rare Hx Substance Use: No Substance Use Type: Reports: None Hx Tobacco Use: Yes Smoking Status (MU): Former Smoker Type: Cigarettes Amount Used/How Often: 1 PPD, 3 cigarettes/day by the end Length of Time of Smoking/Using Tobacco: PT states during the time she smoked she stopped off and on . Have You Smoked in the Last Year: No Review of Systems Negative: Skin Diaphoresis Positive: Photophobia Positive: Chest Pain Positive: Shortness Of Breath Positive: Nausea. Negative: Abdominal Pain Positive: Other - Positive arm heaviness Positive: Headache All Other Systems Reviewed And Are Negative: Yes Physical Exam Triage Information Reviewed: Yes Vital Signs On Initial Exam: Initial Vitals Temp Pulse Resp BP 97.0 F 70 16 134/48 05/05/17 19:20 05/05/17 19:20 05/05/17 19:20 05/05/17 19:20 Vital Signs Reviewed: Yes Appearance: Positive: Well-Appearing, No Pain Distress Skin: Positive: Warm, Skin Color Reflects Adequate Perfusion, Dry Head/Face: Positive: Normal Head/Face Inspection Eyes: Positive: EOMI, MAXIM ENT: Positive: Normal ENT inspection Neck: Positive: Supple, Nontender Respiratory/Lung Sounds: Positive: Clear to Auscultation, Breath Sounds Present Cardiovascular: Positive: RRR Abdomen Description: Positive: Nontender, Soft Bowel Sounds: Positive: Present Musculoskeletal: Positive: Normal, Strength/ROM Intact Neurological: Positive: Normal, Sensory/Motor Intact, Alert, Oriented to Person Place, Time Psychiatric: Positive: Affect/Mood Appropriate Diagnostics - Vital Signs Vital Signs Temp Pulse Resp BP 05/05/17 19:20 97.0 F 70 16 134/48 - Laboratory Lab Results: Lab Results 05/05/17 05/05/17 05/05/17 Range/Units 19:37 19:37 19:37 WBC 8.1 (3.5-10.8) 10^3/ul RBC 4.87 (4.0-5.4) 10^6/ul Hgb 12.6 (12.0-16.0) g/dl Hct 40 (35-47) % MCV 82 (80-97) fL MCH 26 L (27-31) pg MCHC 32 (31-36) g/dl RDW 16 H (10.5-15) % Plt Count 200 (150-450) 10^3/ul MPV 9 (7.4-10.4) um3 Neut % (Auto) 82.0 (38-83) % Lymph % (Auto) 7.9 L (25-47) % [place] % (Auto) 6.0 (1-9) % Eos % (Auto) 1.6 (0-6) % Baso % (Auto) 2.5 H (0-2) % Absolute Neuts (auto) 6.6 (1.5-7.7) 10^3/ul Absolute Lymphs (auto) 0.6 L (1.0-4.8) 10^3/ul Absolute Monos (auto) 0.5 (0-0.8) 10^3/ul Absolute Eos (auto) 0.1 (0-0.6) 10^3/ul Absolute Basos (auto) 0.2 (0-0.2) 10^3/ul Absolute Nucleated RBC 0 10^3/ul Nucleated RBC % 0 INR (Anticoag Therapy) 1.14 H (0.89-1.11) APTT 27.5 (26.0-36.3) seconds D-Dimer, Quantitative 273 H (Less Than 230) ng/mL Sodium 136 (133-145) mmol/L Potassium 3.6 (3.5-5.0) mmol/L Chloride 101 (101-111) mmol/L Carbon Dioxide 27 (22-32) mmol/L Anion Gap 8 (2-11) mmol/L BUN 18 (6-24) mg/dL Creatinine 1.11 H (0.51-0.95) mg/dL Est GFR ( Amer) 64.1 (>60) Est GFR (Non-Af Amer) 49.8 (>60) BUN/Creatinine Ratio 16.2 (8-20) Glucose 281 H (70-100) mg/dL Lactic Acid (0.5-2.0) mmol/L Calcium 9.3 (8.6-10.3) mg/dL Magnesium 2.0 (1.9-2.7) mg/dL Total Bilirubin 0.60 (0.2-1.0) mg/dL AST 15 (13-39) U/L ALT 14 (7-52) U/L Alkaline Phosphatase 82 (34-104) U/L Total Creatine Kinase 73 (10-223) U/L CK-MB (CK-2) 2.9 (0.6-6.3) ng/mL Troponin I 0.01 (<0.04) ng/mL C-Reactive Protein 11.01 H (< 5.00) mg/L B-Natriuretic Peptide ( - 100) pg/mL Total Protein 7.4 (6.4-8.9) g/dL Albumin 3.9 (3.2-5.2) g/dL Globulin 3.5 (2-4) g/dL Albumin/Globulin Ratio 1.1 (1-3) Lipase 16 (11.0-82.0) U/L TSH 3.10 (0.34-5.60) mcIU/mL 05/05/17 05/05/17 Range/Units 19:37 19:37 WBC (3.5-10.8) 10^3/ul RBC (4.0-5.4) 10^6/ul Hgb (12.0-16.0) g/dl Hct (35-47) % MCV (80-97) fL MCH (27-31) pg MCHC (31-36) g/dl RDW (10.5-15) % Plt Count (150-450) 10^3/ul MPV (7.4-10.4) um3 Neut % (Auto) (38-83) % Lymph % (Auto) (25-47) % [place] % (Auto) (1-9) % Eos % (Auto) (0-6) % Baso % (Auto) (0-2) % Absolute Neuts (auto) (1.5-7.7) 10^3/ul Absolute Lymphs (auto) (1.0-4.8) 10^3/ul Absolute Monos (auto) (0-0.8) 10^3/ul Absolute Eos (auto) (0-0.6) 10^3/ul Absolute Basos (auto) (0-0.2) 10^3/ul Absolute Nucleated RBC 10^3/ul Nucleated RBC % INR (Anticoag Therapy) (0.89-1.11) APTT (26.0-36.3) seconds D-Dimer, Quantitative (Less Than 230) ng/mL Sodium (133-145) mmol/L Potassium (3.5-5.0) mmol/L Chloride (101-111) mmol/L Carbon Dioxide (22-32) mmol/L Anion Gap (2-11) mmol/L BUN (6-24) mg/dL Creatinine (0.51-0.95) mg/dL Est GFR ( Amer) (>60) Est GFR (Non-Af Amer) (>60) BUN/Creatinine Ratio (8-20) Glucose (70-100) mg/dL Lactic Acid 1.1 (0.5-2.0) mmol/L Calcium (8.6-10.3) mg/dL Magnesium (1.9-2.7) mg/dL Total Bilirubin (0.2-1.0) mg/dL AST (13-39) U/L ALT (7-52) U/L Alkaline Phosphatase (34-104) U/L Total Creatine Kinase (10-223) U/L CK-MB (CK-2) (0.6-6.3) ng/mL Troponin I (<0.04) ng/mL C-Reactive Protein (< 5.00) mg/L B-Natriuretic Peptide 374 H ( - 100) pg/mL Total Protein (6.4-8.9) g/dL Albumin (3.2-5.2) g/dL Globulin (2-4) g/dL Albumin/Globulin Ratio (1-3) Lipase (11.0-82.0) U/L TSH (0.34-5.60) mcIU/mL Result Diagrams: 05/05/17 19:37 05/05/17 19:37 Lab Statement: Any lab studies that have been ordered have been reviewed, and results considered in the medical decision making process. - Radiology CXR Radiology Interpretation Completed By: Radiologist - NO EVIDENCE FOR ACUTE FINDING - EKG 1938 Cardiac Rate: NL - 72 BPM EKG Interpretation: Atrial paced rhythm Re-Evaluation - Re-Evaluation First Eval Re-Evaluation Time: 20:41 Comment: Reviewed lab results with patient. Discussed plan for admisison. She understands and agrees. Chest Pain Course/Dx - Course Assessment/Plan: This patient is a 61 year old F presenting to [facility] with a chief complaint of mid sternal CP since 1814 today. The CP is an intermittent heaviness which radiates to her arms. The patient rates the pain 5/10 in severity. Symptoms aggravated and alleviated by nothing. Patient reports SOB, nausea, headache, photophobia, and arm heaviness. Patient denies diaphoresis and abdominal pain. She reports taking ASA 81 mg every morning and eliquis 2.5 mg BID. PMHx of DM, DVT, CAD ([place] x3 and stents), COPD, headaches, and depression. An EKG reveals Atrial paced rhythm at 72 BPM. CXR reveals NO EVIDENCE FOR ACUTE FINDING. Consulted Dr. Morrison (hospitalist) who agrees to admit. Patient will be admitted with follow up from Dr. Morrison. The patient is agreeable with this plan. DISCUSSED RESULTS WITH PATIENT. ADMIT HOSPITALIST STABLE. - Diagnoses Provider Diagnoses: Chest pain - Provider Notifications Discussed Care Of Patient With: Warren Morrison Time Discussed With Above Provider: 20:40 Instructed by Provider To: Other - Consulted Dr. Morrison (hospitalist) who agrees to admit. Discharge - Discharge Plan Condition: Stable Disposition: ADMITTED TO [facility] Referrals: Gia Carson MD [Primary Care Provider] - The documentation as recorded by the Jared hobbs Alfonso accurately reflects the service I personally performed and the decisions made by me, Santana Jean MD.
[2017-05-05] MEDS ORDERED: Dextrose 50% Syringe 50 ML* 25 GM/50 ML SYRINGE IV PUSH PRN (21:00)
[2017-05-05] MEDS ORDERED: Albuterol 2.5 MG/3 ML NEB.SOL* (0.083%) INH PRN (21:57)
[2017-05-05] MEDS ORDERED: Insulin GLARGINE(*) 1 UNITS UNIT SUBCUT SCH (22:00)
[2017-05-06] MEDS: NS 0.9% 1000 ML* 1,000 ML IV SCH ×2 (00:39→11:49)
--- NOTE | 2017-05-06 01:45 | HP ---
CC: Dr. Carson; Dr. Valera * HISTORY AND PHYSICAL: DATE OF ADMISSION: 05/05/17 PRIMARY CARE PROVIDER: Dr. Carson. ATTENDING PHYSICIAN FROM THE HOSPITAL: Warren Morrison MD * (report is being dictated by Dejuan Orozco NP) CHIEF COMPLAINT: Chest pain. HISTORY OF PRESENT ILLNESS: Mrs. Alcantar is a 61-year-old female patient, she has a history of cardiomyopathy, CAD, ANNE, COPD, AFib, tricuspid regurg, pulmonary hypertension. She also has a history of diabetes, DVT, and also has a history of an MD x3. She comes into the ER today, says that she was sitting down by her legs, she had her feet in the water, she was reading the Bible and she developed onset of chest discomfort. She said that the pain was described as a pressure, heaviness, someone sitting on her chest and went into both her arms. She said she became nauseated. She was concerned and immediately called 911 and she came into the hospital. She says that in the days leading up to this she did not have any chest pressure. She says she has not been having any pain or chest pressure with ambulation or with exertion. She said the symptoms got better while in the ambulance when she received nitro and aspirin but she was concerned because of her history and the fact that she had chest pain and she decided to come into the hospital. She denies any changes in her medication. She denies having any recent nausea, vomiting or diarrhea. There has been no upper respiratory symptoms recently. No fevers or cough. Because of her risk factors for acute coronary syndrome, hospitalist service was asked to evaluate for admission. PAST MEDICAL HISTORY: Significant for: 1. Cardiomyopathy, last known EF less than 20%. 2. CAD. 3. ANNE. 4. COPD. 5. AFib. 6. Tricuspid regurg. 7. Pulmonary hypertension. 8. Diabetes. 9. DVT. 10. MD. PAST SURGICAL HISTORY: 1. She has had a pacemaker and defibrillator. 2. Appendectomy. 3. . 4. Heart catheterizations. 5. Tonsillectomy. 6. Hysterectomy. HOME MEDICATIONS: Include: 1. Magnesium 400 mg daily. 2. Lantus 30 units subcu daily. 3. Lasix 40 mg daily. 4. Aspirin 81 mg daily. 5. Tylenol with codeine 1 tablet p.o. at bedtime as needed. 6. DiaBeta 5 mg p.o. b.i.d. 7. Spironolactone 50 mg daily. 8. Crestor 40 mg at bedtime. 9. Prilosec 40 mg daily at bedtime. 10. Nitro 0.4 mg sublingual q.5 minutes x3 p.r.n. chest pain. 11. Metoprolol XL 100 mg p.o. b.i.d. 12. Apixaban 5 mg p.o. b.i.d. ALLERGIES: Allergies to medications include METFORMIN. FAMILY HISTORY: Mother is an alcoholic. She did have a history of CAD. Father had a history of cancer. SOCIAL HISTORY: The patient is a former smoker. She rarely drinks alcohol. Surrogate decision maker is her daughter, Kyung. REVIEW OF SYSTEMS: There is no documented fever. Denied having any significant weight change. There was no double vision. No ear discharge. No rhinorrhea. No sore throat. No thyroid enlargement. There is chest pain per my HPI. No orthopnea, no nocturnal dyspnea. There was no abdominal pain, no nausea, no vomiting, no dysuria, no frequency, no seizure, no loss of consciousness and no pruritus and no skin ulcerations. Review of 14 systems completed, all others negative. PHYSICAL EXAMINATION GENERAL: At this time, Mrs. Alcantar is a 61-year-old female patient with multiple cardiac risk factors. She appears to be chronically ill. She is sitting in the ER stretcher. She does not appear to be in acute distress. VITAL SIGNS: Blood pressure 118/58, pulse 80, respirations 20, O2 sat 94%, temperature 98.0. HEENT: Head is atraumatic, normocephalic. Eyes: EOMs are intact. Sclerae anicteric and not pale. Throat: Oral mucosa appears to be moist. No oropharyngeal erythema. NECK: Supple. LUNGS: Clear to auscultation bilaterally. No wheezes, rales or rhonchi. HEART: Heart sounds S1, S2. Regular rate and rhythm. No murmurs, rubs, or gallops. ABDOMEN: Soft, flat, nontender. Bowel sounds present. EXTREMITIES: Pulses were 2+ throughout. She has been moving all 4 extremities with 5/5 strength. NEUROLOGIC: She is awake, alert, oriented x3. Tongue midline. Division Director were equal. No gross focal deficits. SKIN: Grossly intact. LABORATORY DATA/DIAGNOSTIC DATA: Labs today reveal WBC 8.1, RBC of 4.87, hemoglobin 12.6, hematocrit 40, platelet count of 200,000. The INR was 1.14. PTT was 27.5. D-dimer 273. Sodium 136, potassium 3.6, chloride 101, bicarb 27 , BUN 18, creatinine 1.11, glucose 281, lactic 1.1, calcium 9.3, mag 2.0, total bili 0.6, AST 15, ALT 14, alk phos 82, CK 73, CK-MB 2.9, troponin 0.01, albumin is 3.9, TSH is 3.1. She did have a chest x-ray obtained today and also a EKG. The chest x-ray showed no evidence of acute findings. The EKG today showed atrial paced rhythm , rate of 72. Old medical records reviewed. ASSESSMENT/PLAN: Mrs. Alcantar is a 61-year-old female patient coming into the ER with complaints of chest discomfort with no shortness of breath, in addition to this pain going into both her arms. There was concern for acute coronary syndrome. We have been asked to evaluate for admission. She will be admitted under observation status for: 1. Chest pain: At this point, I will go ahead and order troponins and stress test. In addition to this, we will continue her aspirin, statin and beta kem and place her on telemetry, cycle her troponin check, lipids and A1c in the morning. I do not believe that we need to follow the D-dimer it was 279, she is on Eliquis, she is not having any other symptoms of pulmonary embolism, she is not short of breath, she is not hypoxic, the pain has gone now and she has not had any calf pain, leg pain or any risk factors for deep venous thrombosis or pulmonary embolism recently. I do not think we need to do a CTA. I am going to hold off on this. I am more concerned that her story is cardiac related because she described the pain as a pressure, radiating into both arms, and she became nauseated and now it has gone and it responded to nitro. My plan is to go ahead and cycle her trops, get stress test, and follow. 2. Cardiomyopathy: Continue meds as prescribed. Does not appear to be in any failure. 3. Coronary artery disease: Continue aspirin, statin and beta kem. 4. Obstructive sleep apnea: Did order CPAP. 5. Chronic obstructive pulmonary disease: We will continue her meds as prescribed. I will order p.r.n. albuterol. 6. History of tricuspid regurgitation: She can follow with her primary digital field service technician. 7. Atrial fibrillation: She is in paced rhythm currently. We will continue her Eliquis. 8. Pulmonary hypertension: Again continue following with her primary care provider. 9. Diabetes: She will be on Lispro sliding scale. 10. History of deep venous thrombosis: She is on Eliquis currently, will continue with this. 11. History of myocardial infarction: Again, continue with her aspirin, statin , beta blockers. 12. DVT prophylaxis: Again she is on Eliquis, I will place her on SCDs. 13. Code status: Full code. 14. Nutrition: She can have heart healthy diet and she is n.p.o. after midnight. TIME SPENT: Time spent on admission was 60 minutes, greater than half the time spent [id number] with the patient obtaining history and physical; other half time spent going over the plan of care with the patient, implementing plan of care. I discussed the plan of care with my attending, Dr. Morrison, he is in agreement. DEJUAN OROZCO NP [id number]/CPS #: [id number] MTDD
[2017-05-06 04:56] LABS: Hematocrit 35 % (35-47); Hemoglobin 11.3 g/dl (12.0-16.0); Mean Corpuscular HGB Conc 32 g/dl (31-36); Mean Corpuscular Hemoglobin 26 pg (27-31); Mean Corpuscular Volume 82 fL (80-97); Mean Platelet Volume 9 um3 (7.4-10.4); Red Blood Count 4.27 10^6/ul (4.0-5.4); Red Cell Distribution Width 16 % (10.5-15); White Blood Count 5.6 10^3/ul (3.5-10.8)
[2017-05-06 05:14] LABS: BUN/Creatinine Ratio 18.5 (8-20); Calcium 8.5 mg/dL (8.6-10.3); EGFR African American 92.1 (>60); EGFR Non-African American 71.6 (>60); HDL Cholesterol 26.7 mg/dL; Potassium 3.8 mmol/L (3.5-5.0)
[2017-05-06] MEDS ORDERED: Metoprolol Succinate XL TAB* 100 MG PO SCH (09:00)
[2017-05-06] MEDS ORDERED: Apixaban* 5 MG TAB PO SCH (09:00)
[2017-05-06] MEDS ORDERED: Aspirin EC Low Dose* 81 MG TAB.EC PO SCH (09:00)
[2017-05-06] MEDS ORDERED: Spironolactone TAB* 25 MG PO SCH (09:00)
[2017-05-06] MEDS ORDERED: Furosemide TAB* 40 MG PO SCH (09:00)
[2017-05-06] MEDS: Insulin LISPRO* 1 UNITS UNIT SUBCUT SCH ×3 (09:38→19:33)
[2017-05-06 09:39] VITALS: BP 115/55
[2017-05-06] MEDS ORDERED: Acetaminophen TAB* 325 MG PO PRN (09:53)
[2017-05-06] MEDS ORDERED: Magnesium Oxide TAB* 400 MG PO SCH (10:00)
--- NOTE | 2017-05-06 10:07 | RAD ---
HISTORY: Chest pain, shortness of breath, previous MT, diabetes, hypertension, 59, family history of heart disease COMPARISONS: February 28, 2016 TECHNIQUE: A 1 day stress/rest myocardial perfusion study was performed, with pharmacologic stress. The stress portion was monitored by Dr. Art. Gated SPECT imaging was performed, with CT-based attenuation correction DOSE: Stress: Technetium 99m tetrofosmin, 25.17 millicuries, injected at 8:30 AM on May 06, 2017 Rest: Technetium 99m tetrofosmin, 10.99 millicuries, injected at 6:25 AM on May 06, 2017 Pharmacologic agent: Lexiscan FINDINGS: CARDIAC MONITORING: Baseline abnormalities. No significant change with stress. EF: 18 % TID: 1.02 MOTION: There is diffuse hypokinesia with apical dyskinesia PERFUSION: Again noted is a large fixed involving the mid and distal anterior wall, mid and distal septum, distal inferior wall and apex. There is marginal reversibility. This similar to the previous examination OTHER: None IMPRESSION: AGAIN NOTED IS A LARGE FIXED DEFECT CONSISTENT WITH PREVIOUS INFARCT WITH MARGINAL REVERSIBILITY WHICH MAY BE MISSED REGISTRATION ARTIFACT OR REFLECT MARGINAL ISCHEMIA. THERE IS MARKEDLY DECREASED EJECTION FRACTION ASSESSMENT: HIGH RISK. Based on imaging criteria from ACC/AHA 2002. Guideline Update for the Management of Patient's with Chronic Stable Angina, table 23. Noninvasive Risk Stratification.
[2017-05-06] MEDS ORDERED: Apixaban* 2.5 MG TAB PO SCH (11:00)
[2017-05-06] MEDS ORDERED: Regadenoson* 0.4 MG/5 ML SYRINGE ONE (11:13)
[2017-05-06 11:53] LABS: Urine Bacteria Absent (Absent); Urine Bilirubin Negative (Negative); Urine Glucose Negative (Negative); Urine Nitrite Negative (Negative)
--- NOTE | 2017-05-06 12:34 | RAD ---
HISTORY: Leg pain COMPARISONS: None relevant TECHNIQUE: Multiple transverse and longitudinal ultrasound images were obtained of the bilateral lower extremities from the level of the common femoral vein inferiorly through to the infrapopliteal veins using grayscale, color Doppler, and spectral Doppler imaging with and without compression and with augmentation. FINDINGS: VEINS: There is thrombus noted within one branch of the left peroneal vein. The remainder of the venous system of the bilateral lower extremities is compressible throughout its course, with normal flow on color Doppler imaging and normal response to augmentation on spectral Doppler imaging. SOFT TISSUES: Unremarkable. OTHER FINDINGS: None. IMPRESSION: THROMBUS NOTED WITHIN A LEFT CALF VEIN. NO POPLITEAL OR SUPRAPOPLITEAL DEEP VEIN THROMBOSIS OF THE LOWER EXTREMITY BILATERALLY
[2017-05-06] MEDS ORDERED: Apixaban* 5 MG TAB PO ONE (14:47)
[2017-05-06] MEDS ORDERED: CMCS: Rosuvastatin (NF) 20 MG TAB PO SCH (21:00)
[2017-05-06] MEDS ORDERED: Omeprazole CAP* 20 MG PO SCH (21:00)
--- NOTE | 2017-05-07 01:05 | DS ---
CC: Dr. Carson; Dr. Valera * DISCHARGE SUMMARY: DATE OF ADMISSION: 05/05/17 DATE OF DISCHARGE: 05/06/17 PRIMARY CARE PROVIDER: Dr. Carson. ELECTRONICS TECHNICIAN APPRENTICE: Dr. Valera. DISCHARGE DIAGNOSES: 1. Atypical chest pain, acute coronary syndrome ruled out. 2. Left peroneal vein deep venous thrombosis. SECONDARY DIAGNOSES: 1. Ischemic cardiomyopathy with ejection fraction less than 20%. 2. Coronary artery disease with no right coronary artery occlusion. 3. Status post 3 myocardial infarctions. 4. Systolic congestive heart failure with ejection fraction less than 20%. 5. Status post pacer/implantable cardioverter-defibrillator. 6. Type 2 diabetes. 7. Hyperlipidemia. 8. Morbid obesity with a BMI of 36. 9. Chronic obstructive pulmonary disease. 10. Atrial fibrillation. 11. History of pulmonary embolism and deep venous thrombosis in 2016. 12. Status post appendectomy. 13. Status post sections. MEDICATION LIST: 1. Furosemide 20 mg p.o. daily. 2. Tylenol/Codeine 30 mg p.o. at bedtime as needed for pain. 3. Glyburide 5 mg p.o. b.i.d. 4. Spironolactone 50 mg p.o. daily. 5. Rosuvastatin 40 mg p.o. at bedtime. 6. Omeprazole 40 mg p.o. at bedtime. 7. Metoprolol succinate 100 mg p.o. b.i.d. 8. Magnesium oxide 400 mg p.o. daily. 9. Lantus 30 units subcutaneously daily. 10. Aspirin 81 mg p.o. daily. 11. Nitroglycerin 0.4 mg sublingual p.r.n. chest pain, maximum 3 doses. New medications: 1. Imdur 30 mg p.o. daily. Medication change: 1. Apixaban was changed to 10 mg p.o. b.i.d. for 7 days, then 1 tablet p.o. b.i.d. HOSPITAL COURSE: Ms. Alcantar is a 61-year-old lady with past medical history as stated above that presented to the emergency room with complaints of chest pain. She states she was sitting at the brown with her legs in the water reading the bible, when she had this sudden onset of retrosternal chest pain, feeling like an elephant was sitting on her chest. She also had complaints of left leg pain. She said that 3 days ago, while walking, she had a "charley horse." She massaged the area, but she continued to have some soreness. For more details about her presentation, I refer you to her history and physical. The patient was admitted to the telemetry floor, where she had serial troponins that were negative. Lipid profile showed LDL of 37. Her EKG showed only an AV paced rhythm. The patient underwent a nuclear stress test and it showed again noted is a large fixed defect consistent with previous infarct with marginal reversibility , which may be missed registration artifact or reflect marginal ischemia. There is markedly decreased ejection fraction with ejection fraction of 18%. I discussed this result with the crawler crane operator on-call, Dr. Art. He thinks this stress test is unchanged from her prior from 2016. He does not think an emergent cardiac cath is indicated at this time, but he thinks the patient should follow with her crawler crane operator (Dr. Valera) to continue her conversations about another cardiac cath as apparently this had already been planned even before this episode of chest pain. He recommended maximizing her medical therapy. So, at this point, we are going to add long-acting nitrate ( Imdur). For her lower extremity pain, the patient had a lower extremity Doppler that showed a thrombus noted within the left peroneal vein. I did contact her primary care provider, Dr. Carson, she clarified why the patient was on a lower dose of Eliquis. Dr. Carson tells me that the patient completed her 6 -month treatment for PE and DVT and she was then changed to a prophylaxis dose. We talked about different types of anticoagulation as the patient has failed this prophylaxis regimen, but after talking to her PCP and talking to the patient, the patient would prefer to continue taking this medication she already knows, so she will be changed again to a therapeutic regimen of Eliquis 10 mg twice a day for a week and then 5 mg twice a day and she will follow up with Dr. Carson. The patient is medically stable for discharge at this time. She was educated about what symptoms should prompt return to the emergency room. I offered her the possibility of a V/Q scan or CTA of the chest to rule out PE as the cause of her chest pain. The patient is familiar with the test as she has done on her prior admission. I also informed her that her that her treatment will probably be the same with Eliquis if she also had a PE. The patient states that she is afraid of side effects with the contrast injection especially because she already got an injection with the stress test and she had some chest pain when she had her CTA last year. So, she understands that she is at risk for pulmonary embolism, but she prefers not to have V/Q or CTA of the chest done at this time. I am going to continue her treatment with Eliquis and her PCP can discuss it further if she feels this test should be performed. The patient does have a below knee DVT that is symptomatic, but I think that at this point, since she had a DVT and a possible PE in the past, I believe long-term anticoagulation is indicated. PHYSICAL EXAMINATION: Vital Signs: Temperature 97.1, heart rate is 65, respiratory rate is 16, oxygen saturation is 99% on room air, blood pressure is 115/55. General: The patient is a pleasant, obese lady, sitting up in bed, in no acute distress. CVS: Normal S1, S2, regular rate and rhythm. Chest: Breath sounds bilaterally with no added sounds. Abdomen is soft, obese. Extremities: There is no edema, but there is calf tenderness in the left. Neuro : She is alert and oriented x3, able to move all 4 extremities. DIET: Heart-healthy, consistent carb diet. ACTIVITIES: As tolerated. DISPOSITION: To home. STATUS WHILE IN THE HOSPITAL: Observation. Please keep in mind, this is a summarized version of this patient's hospital stay. If you need more information , please feel free to call me at [phone] or please obtain the full medical records. TIME SPENT: Approximately 45 minutes was spent to complete the discharge. [id number]/[facility] #: [id number] PATSY
== END 2017-05-06 17:21 | disposition home or self-care (01) ==
LOC: ED 19:05 → MEDTELE 20:58
PROVIDERS: ADMIT Internal Medicine; ATTEND Internal Medicine
DX: R07.9 Chest pain, unspecified (principal); I82.492 Acute embolism and thrombosis of other specified deep vein of left lower extremity; I25.5 Ischemic cardiomyopathy; I25.10 Atherosclerotic heart disease of native coronary artery without angina pectoris; I25.2 Old myocardial infarction; I50.20 Unspecified systolic (congestive) heart failure; Z95.810 Presence of automatic (implantable) cardiac defibrillator; E11.9 Type 2 diabetes mellitus without complications; Z79.4 Long term (current) use of insulin; E78.5 Hyperlipidemia, unspecified; E66.01 Morbid (severe) obesity due to excess calories; Z68.36 Body mass index [BMI] 36.0-36.9, adult; J44.9 Chronic obstructive pulmonary disease, unspecified; I48.91 Unspecified atrial fibrillation; Z86.711 Personal history of pulmonary embolism; Z79.01 Long term (current) use of anticoagulants; I36.1 Nonrheumatic tricuspid (valve) insufficiency; Z87.891 Personal history of nicotine dependence; G47.33 Obstructive sleep apnea (adult) (pediatric); R06.02 Shortness of breath; R11.0 Nausea; R51 Headache
CPT/HCPCS: 36415; 71010; 78452; 80048; 80053; 80061; 81003; 81015; 82550; 82553; 83036; 83605; 83690; 83735; 83880; 84443; 84484; 85025; 85379; 85610; 85730; 86140; 87086; 93005; 93017; 93970; 99284; A9270-GY; A9502; G0378; J2785

== ENCOUNTER 2017-10-05 09:48 | Observation (INO) | payer MEDICARE, OTHER ==
[2017-10-05] MEDS ORDERED: NS 0.9% 1000 ML* 1,000 ML IV ONE (09:57)
[2017-10-05] MEDS ORDERED: Morphine INJ* 4 MG/ML 1 ML CARPUJECT IV ONE ×2 (10:22→11:30)
[2017-10-05 10:24] LABS: ABS Basophils 0.1 10^3/ul (0-0.2); ABS Eosinophils 0.1 10^3/ul (0-0.6); ABS Lymphocytes 1.2 10^3/ul (1.0-4.8); ABS Monocytes 0.3 10^3/ul (0-0.8); ABS Neutrophils 6.1 10^3/ul (1.5-7.7); ABS Nucleated RBC 0 10^3/ul; Eosinophil % 0.8 % (0-6); Hematocrit 39 % (35-47); Hemoglobin 12.3 g/dl (12.0-16.0); Lymphocyte % 15.9 % (25-47); Mean Corpuscular HGB Conc 32 g/dl (31-36); Mean Corpuscular Hemoglobin 25 pg (27-31); Mean Corpuscular Volume 80 fL (80-97); Mean Platelet Volume 8 um3 (7.4-10.4); Nucleated Red Blood Cells % 0.1; Platelet Count 272 10^3/ul (150-450); Red Blood Count 4.87 10^6/ul (4.0-5.4); Red Cell Distribution Width 17 % (10.5-15); White Blood Count 7.8 10^3/ul (3.5-10.8)
[2017-10-05 10:35] LABS: INR 1.76 (0.77-1.02)
--- NOTE | 2017-10-05 10:41 | RAD ---
HISTORY: Chest pain COMPARISONS: June 26, 2017 VIEWS: 1: frontal portable view of the chest at 10:25 AM FINDINGS: LINES AND TUBES: Left-sided pacemaker is noted CARDIOMEDIASTINAL SILHOUETTE: The cardiac silhouette is enlarged. The cardiomediastinal silhouette is otherwise normal for portable technique. PLEURA: The costophrenic angles are sharp. No pleural abnormalities are noted. LUNG PARENCHYMA: The lungs are clear. ABDOMEN: The upper abdomen is clear. There is no subphrenic gas. BONES AND SOFT TISSUES: No bone or soft tissue abnormalities are noted. IMPRESSION: CARDIOMEGALY
[2017-10-05 10:46] LABS: EGFR Non-African American 42.9 (>60)
[2017-10-05] MEDS ORDERED: predniSONE TAB* 50 MG PO ONE ×3 (11:11→23:11)
[2017-10-05] MEDS ORDERED: Aspirin Low Dose CHEW TAB* 81 MG PO ONE (11:42)
[2017-10-05] MEDS ORDERED: Acetaminop/Codeine 30 MG TAB* 1 TAB (300 MG/30 MG) PO PRN (12:23)
[2017-10-05] MEDS ORDERED: Nitroglycerin TAB 0.4 MG* 0.4 MG TAB SL PRN (12:23)
[2017-10-05] MEDS ORDERED: oxyCODONE TAB* 5 MG TAB PO PRN (12:33)
[2017-10-05] MEDS ORDERED: Dextrose 50% Syringe 50 ML* 25 GM/50 ML SYRINGE IV PUSH PRN (12:34)
--- NOTE | 2017-10-05 13:10 | RAD ---
Indication: LEFT lateral chest pain. Assess for pulmonary. Comparison: October 05, 2017 chest radiograph and February 28, 2016 CT pulmonary angiogram. February 26, 2016 ventilation/perfusion scan. Technique: Following administration of 9.330 mCi xenon-133 by inhalation anterior and posterior ventilation images were obtained. Following the administration of 6.450 mCi of Tc-99m macroaggregated albumin, perfusion images were obtained in multiple projections. Report: The ventilation pattern is uniform accounting for photopenia related to cardiomegaly. Bilateral air trapping noted. Mildly heterogeneous perfusion pattern with suggestion of multiple small subsegmental perfusion defects at the periphery of the LEFT upper and lower lobes. IMPRESSION: Multiple small unmatched subsegmental perfusion defects at the periphery of the LEFT upper and lower lobes which appear new or increased compared with the February 26, 2016 exam concerning for potential pulmonary embolism. Intermediate probability for pulmonary embolism. . If clinically indicated consider CT pulmonary angiogram if feasible for further assessment.
[2017-10-05] MEDS: Metoclopramide IV* 5 MG/ML 2 ML VIAL IV PRN (15:03)
--- NOTE | 2017-10-05 16:12 | PN ---
Progress Note - Progress Note Date of Service: 10/05/17 Note: VQ intermediate risk Pre medicating with steroids and benadryl Plan on CTA chest 010 tomorrow Change eliquis to riveroxaban Discuss plan with patient and daughters
[2017-10-05] MEDS: Insulin LISPRO* 1 UNITS UNIT SUBCUT SCH ×2 (17:23→22:15)
--- NOTE | 2017-10-05 18:10 | HP ---
CC: Dr. Carson; Dr. Valera * ADMISSION HISTORY AND PHYSICAL: DATE OF ADMISSION: PRIMARY CARE PROVIDER: Dr. Carson. DRUPAL DEVELOPER: Dr. Valera. HEALTHCARE PROXY: Her daughter. CODE STATUS: Full. SOURCES OF INFORMATION: History obtained from interview with patient, review of past medical records. RELIABILITY: Fair from the patient, excellent from records. CHIEF COMPLAINT: Left-sided chest pain. HISTORY OF PRESENT ILLNESS: This is a 62-year-old female, complicated past medical history including ischemic cardiomyopathy, last known EF less than 20%, CAD and ICD with permanent pacemaker, insulin-dependent diabetes mellitus, and history of PE and DVT in 2016, as well as distal DVT, more recently had been in her usual state of health until approximately a week ago, started to develop a cough, associated with sneezing, rhinorrhea, as well as subjective fevers and chills. The night prior to admission approximately 5:30 p.m., developed left- sided chest pain, described as pleuritic, worse with deep inspiration, "like a stabbing knife" that reminded her of a previous pulmonary embolism. She notes that the pain was worse when lying flat and better when leaning forward. She has had no recent travel and no recent trauma. She has had no change in her shortness of breath which has been chronic since change of her ICD battery in June. Recent medication changes include restarting her Lasix 2 days prior to presentation. She felt sick "the other day" that resolved after having 1 episode of diarrhea, flatus, nausea, vomiting. Her left-sided chest pain continues at this time. PAST MEDICAL HISTORY: Includes ischemic cardiomyopathy, EF less than 20%, CAD, ICD/permanent pacemaker, insulin-dependent type 2 diabetes mellitus, hyperlipidemia, morbid obesity, COPD, atrial fibrillation, PE and DVT in 2016, appendectomy, . CURRENT MEDICATIONS: 1. Glargine 35 units at bedtime. 2. Omeprazole 40 mg at bedtime. 3. Magnesium oxide 400 mg daily. 4. Tylenol with Codeine 30 mg 1 tab at bedtime as needed. 5. Nitroglycerin sublingual 0.4 mg as needed. 6. Glimepiride 4 mg twice daily. 7. Furosemide 40 mg in the morning. 8. Apixaban 5 mg twice daily. 9. Spironolactone 50 mg in the morning. 10. Rosuvastatin 40 mg at bedtime. 11. Metoprolol succinate 100 mg twice daily. 12. Aspirin 81 mg daily. ALLERGIES: METFORMIN; SITAGLIPTIN; TETRACYCLINE; ZOFRAN; LATEX; MEPERIDINE; PROPOXYPHENE; CEPHALOSPORIN; IODINATED DIAGNOSTIC AGENTS, the patient reports that she got chest pain upon infusion; LOSARTAN; NIACIN; NSAIDS; PENICILLIN G; PENICILLIN V; RAMIPRIL; ATORVASTATIN; ACELLULAR PERTUSSIS; DIPHTHERIA TOXOID; TETANUS TOXOID; BEE STINGS; CONTRAST DYE as described above. SOCIAL HISTORY: Includes former smoker, rare alcohol. FAMILY HISTORY: Mother is a heavy drinker, mother with CAD. Father with history of unknown cancer. REVIEW OF SYSTEMS: As per HPI, otherwise all other systems negative. PHYSICAL EXAMINATION GENERAL: Sitting up in bed and interactive, pleasant, no apparent distress. Talks in full sentence. VITALS SIGNS: When seen by this author 119/61, heart rate 70, respiratory rate is 20, 95% on room air, T-max is 97.7. HEENT: Oropharynx is clear. Has moist mucous membrane. Sclerae are anicteric. LUNGS: Clear to auscultation. CHEST: Her left chest wall just lateral to her left breast has an area that is tender to palpation, with no visible abnormalities. This is the same area that she is experiencing pain upon deep inspiration. HEART: She has regular rate and rhythm. Distant heart sounds. ABDOMEN: Soft, nontender, nondistended. Positive bowel sounds. EXTREMITIES: Warm and well perfused. She is wearing compression stockings with trace lower extremity edema. NEUROLOGIC: She is alert and oriented x3. Her cranial nerves II through XII are intact. DIAGNOSTIC STUDIES/LAB DATA: Labs reviewed notable for troponin I of 0.02. BUN 19, creatinine 1.26, lactic acid 2.0. BNP 422. White blood cell count 7.8 , hemoglobin 12.3, platelets 272. INR is 1.76 and D-dimer 495. EKG, A sensed V paced. Chest x-ray notable for cardiomegaly. Last stress test, April 2017, noted to be high risk, however, review of medical records indicates that it was reviewed by Dr. Art, thought it was similar to her previous in 2016. ASSESSMENT AND PLAN: This is a 62-year-old female, past medical history as indicated above presenting with left chest pain, worse with deep inspiration. Chest pain. At this point of low suspicion. This is cardiac in nature. Her first troponin is 0. She has had the chest pain since 5:30 yesterday and troponins are flat. I will continue to trend her troponin for 2 additional values. Additional etiologies can include a pulmonary embolism, especially with her history of pulmonary embolism and on a low-dose apixaban which has failed to prevent clots in the past. However, the consistent nature of the pain and tenderness to palpation leave me to believe this is more likely a costochondritis especially in the setting of recent subjective fevers and chills associated with cough, sneezing, and rhinorrhea. In the setting of elevated D-dimer and the history of venothromboembolism, I will move to have a V /Q scan at this time. If indeterminate, may need to proceed to premedication and CTA. I will consider a low-risk test to be definitive at this point. Pericarditis is also in the differential; however, again, the pain with palpation leaves me to believe costochondritis or muscle injury is more likely. Elevated TSH. Free T3 and free T4 are normal. Acute kidney injury in the setting of recent illness trend. Type 2 diabetes. Continue Lantus, holding glimepiride. Coronary artery disease. Continue metoprolol, rosuvastatin, furosemide, aspirin. DVT prophylaxis. Apixaban. [id number]/[facility] #: [id number] MTDD
--- NOTE | 2017-10-05 19:54 | ED ---
Marino Bradley Angela, scribed for Belkys Menjivar MD on 10/05/17 at 1018 . HPI Chest Pain - HPI Summary HPI Summary: This pt is a 62 y/o female presenting to [facility] c/o chest pain since last night at 17:00. Pt reports she tried sleeping sitting up but her pain continued throughout the night. She rates her pain 9/10 in severity. Pt notes her pain is worse with a deep breath. She describes this pain as a "knife." Pt additionally reports SOB. Denies nausea, vomiting. Pt usually takes Tylenol with codeine. She has never had dilaudid. PMHx: pacemaker, defibrillator, diabetes, PE, left arm blood clot, UT x3, sleep apnea. Pt is on CPAP at night. Pt is currently on Eliquis, metoprolol 100 mg BID, 81 mg aspirin, 35 units Lantus, Glimepiride. Pt notes she took 81 mg of aspiring today [employer]. - History of Current Complaint Chief Complaint: EDChestPainROMI Time Seen by Provider: 10/05/17 09:56 Hx Obtained From: Patient Onset/Duration: Started Hours Ago, Still Present Timing: Lasting Hours Current Severity: Severe Pain Intensity: 9 Pain Scale Used: 0-10 Numeric Chest Pain Location: Diffuse Chest Pain Radiates: No Character: Sharp/Stabbing - "knife" Aggravating Factor(s): Recumbent Position Alleviating Factor(s): Upright Position Associated Signs and Symptoms: Positive: Chest Pain, Shortness of Breath. Negative: Nausea, Vomiting - Additional Pertinent History Primary Care Physician: [id number] - Allergy/Home Medications Allergies/Adverse Reactions: Allergies Allergy/AdvReac Type Severity Reaction Status Date / Time Metformin Allergy Severe CHEST PAIN Verified 02/26/16 16:11 & RASH Sitagliptin [From Januvia] Allergy Severe CHEST PAIN Verified 02/26/16 16:11 & RASH Tetracyclines Allergy Severe Hives Verified 02/26/16 16:11 Ondansetron [From Zofran] Allergy Mild Itching Verified 02/26/16 16:11 Latex Allergy Unknown Unknown Verified 02/26/16 16:11 Reaction Details Meperidine [From Demerol HCl] Allergy Unknown Unknown Verified 02/26/16 16:11 Reaction Details Propoxyphene [From Darvon] Allergy Unknown Unknown Verified 02/26/16 16:11 Reaction Details Cephalosporins Allergy Anaphylatic Verified 02/26/16 16:11 Shock Iodinated Diagnostic Agents Allergy Unknown Verified 02/26/16 16:11 Reaction Details Losartan Allergy Unknown Verified 02/26/16 16:11 Reaction Details Niacin [From Niaspan] Allergy Unknown Verified 02/26/16 16:11 Reaction Details NSAIDs Allergy See Comment Verified 02/26/16 16:11 Penicillin G Allergy Hives/Diff. Verified 02/26/16 16:11 Breathing/I tching Penicillin V Allergy Hives Verified 02/26/16 16:11 Ramipril Allergy Unknown Verified 02/26/16 16:11 Reaction Details Atorvastatin AdvReac Intermediate Muscle Ache Verified 02/26/16 16:11 Acellular Pertussis AdvReac Swelling Verified 02/26/16 16:11 [From Boostrix] Diphtheria Toxoid AdvReac Swelling Verified 02/26/16 16:11 [From Boostrix] Tetanus Toxoid, Adsorbed AdvReac Swelling Verified 02/26/16 16:11 [From Boostrix] BEE STINGS Allergy Severe Unknown Uncoded 05/30/15 16:08 Reaction Details CONTRAST DYE Allergy Unknown Unknown Uncoded 05/30/15 16:10 Reaction Details Home Medications: Home Medications Apixaban* [Eliquis*] 5 mg PO BID 10/05/17 [History Confirmed 10/05/17] Aspirin EC Low Dose* [Ecotrin EC Low Dose 81 MG*] 81 mg PO QAM 10/05/17 [ History Confirmed 10/05/17] Glimepiride (NF) 4 mg PO BID 10/05/17 [History Confirmed 10/05/17] Insulin GLARGINE(*) [Lantus(*)] 35 units SUBCUT BEDTIME 10/05/17 [History Confirmed 10/05/17] PMH/Surg Hx/FS Hx/Imm Hx Endocrine/Hematology History: Reports: Hx Diabetes, Hx Anemia Denies: Hx Thyroid Disease Cardiovascular History: Reports: Hx Angina, Hx Auto Implanted Cardiovert Defib, Hx Congestive Heart Failure, Hx Coronary Artery Disease - STENT, Hx Deep Vein Thrombosis, Hx Hypercholesterolemia, Hx Hypertension, Hx Myocardial Infarction, Hx Pacemaker/ICD, Other Cardiovascular Problems/Disorders - CAD Respiratory History: Reports: Hx Chronic Obstructive Pulmonary Disease (COPD), Hx Sleep Apnea - CPAP, Other Respiratory Problems/Disorders - chronic shortness of breath Denies: Hx Asthma, Hx Chronic Bronchitis GI History: Reports: Other GI Disorders - periods of chronic diarrhea Denies: Hx Ulcer History: Denies: Hx Renal Disease Musculoskeletal History: Reports: Hx Arthritis - HANDS, RT ANKLE, SHOULDERS Sensory History: Reports: Hx Contacts or Glasses - glasses Denies: Hx Cataracts, Hx Eye Injury, Hx Eye Prosthesis, Hx Glaucoma, Hx Legally Blind, Hx Macular Degeneration, Hx Vision Problem, Hx Deafness, Hx Hearing Aid, Hx Hearing Problem, Other Sensory Impairments Opthamlomology History: Reports: Hx Contacts or Glasses - glasses Denies: Hx Cataracts, Hx Eye Injury, Hx Eye Prosthesis, Hx Glaucoma, Hx Legally Blind, Hx Macular Degeneration, Hx Vision Problem, Other Sensory Impairments Neurological History: Reports: Hx Headaches, Hx Migraine Psychiatric History: Reports: Hx Depression - NO MEDS - Surgical History Surgery Procedure, Year, and Place: 2012 removal of screw in left thumb and trigger release. 2010 PACEMAKER/DEFIB REPLACED [place]. 2005 CARDIAC STENT [place]. 2006 PACEMAKER/DEFIB [place]. 1998 [place]STERECTOMY [place]. 1983 & 1985 C [place]SE[place]. [place]OMY [place]. 1973 TONSILECTOMY [facility] Anesthesia Reactions: No - STATES SHE GOES INTO CHF EASILY - Immunization History Date of Tetanus Vaccine: 06/2012 Date of Influenza Vaccine: Fall 2013 Infectious Disease History: No Infectious Disease History: Denies: Hx Clostridium Difficile, Hx Hepatitis, Hx Human Immunodeficiency Virus (HIV), Hx of Known/Suspected MRSA, Hx Shingles, Hx Tuberculosis, Hx Known/ Suspected VRE, Hx Known/Suspected VRSA, History Other Infectious Disease, Traveled Outside the in Last 30 Days - Family History Known Family History: Positive: Other - CANCER, ETOH ABUSE - Social History Alcohol Use: Rare Hx Substance Use: No Substance Use Type: Reports: None Hx Tobacco Use: Yes Smoking Status (MU): Former Smoker Type: Cigarettes Amount Used/How Often: 1 PPD, 3 cigarettes/day by the end Length of Time of Smoking/Using Tobacco: PT states during the time she smoked she stopped off and on . Have You Smoked in the Last Year: No Review of Systems Negative: Fever, Chills Positive: Chest Pain Positive: Shortness Of Breath Negative: Vomiting, Nausea All Other Systems Reviewed And Are Negative: Yes Physical Exam - Summary Physical Exam Summary: Appearance: Ill-appearing, severe pain distress, Well-nourished Skin: Warm, color reflects adequate perfusion Head: Normal Head/Face inspection Eyes: Conjunctiva clear ENT: Normal ENT inspection Neck: Supple, no nodes, no JVD Respiratory: Lungs clear, Normal breath sounds, no respiratory distress Cardio: RRR, No murmur, pulses normal, brisk capillary refill Abdomen: soft, nontender Bowel sounds: present Musculoskeletal: Strength Intact/ ROM intact. No calf tenderness. No edema. Neuro: Alert, muscle tone normal, facial symmetry, speech normal, sensory/motor intact Psychological: Normal Triage Information Reviewed: Yes Vital Signs On Initial Exam: Initial Vitals Temp Pulse Resp BP Pulse Ox 97.7 F 80 22 117/78 95 10/05/17 09:52 10/05/17 09:52 10/05/17 09:52 10/05/17 09:52 10/05/17 09:52 Vital Signs Reviewed: Yes Diagnostics - Vital Signs Vital Signs Temp Pulse Resp BP Pulse Ox 10/05/17 09:52 97.7 F 80 22 117/78 95 - Laboratory Lab Results: Lab Results 10/05/17 10/05/17 10/05/17 Range/Units 10:13 10:13 10:13 WBC 7.8 (3.5-10.8) 10^3/ul RBC 4.87 (4.0-5.4) 10^6/ul Hgb 12.3 (12.0-16.0) g/dl Hct 39 (35-47) % MCV 80 (80-97) fL MCH 25 L (27-31) pg MCHC 32 (31-36) g/dl RDW 17 H (10.5-15) % Plt Count 272 (150-450) 10^3/ul MPV 8 (7.4-10.4) um3 Neut % (Auto) 78.0 (38-83) % Lymph % (Auto) 15.9 L (25-47) % [place] % (Auto) 4.5 (1-9) % Eos % (Auto) 0.8 (0-6) % Baso % (Auto) 0.8 (0-2) % Absolute Neuts (auto) 6.1 (1.5-7.7) 10^3/ul Absolute Lymphs (auto) 1.2 (1.0-4.8) 10^3/ul Absolute Monos (auto) 0.3 (0-0.8) 10^3/ul Absolute Eos (auto) 0.1 (0-0.6) 10^3/ul Absolute Basos (auto) 0.1 (0-0.2) 10^3/ul Absolute Nucleated RBC 0 10^3/ul Nucleated RBC % 0.1 ESR 45 H (0-30) mm/Hr INR (Anticoag Therapy) (0.77-1.02) D-Dimer, Quantitative (Less Than 230) ng/mL Sodium 137 (133-145) mmol/L Potassium 3.9 (3.5-5.0) mmol/L Chloride 101 (101-111) mmol/L Carbon Dioxide 29 (22-32) mmol/L Anion Gap 7 (2-11) mmol/L BUN 19 (6-24) mg/dL Creatinine 1.26 H (0.51-0.95) mg/dL Est GFR ( Amer) 55.2 (>60) Est GFR (Non-Af Amer) 42.9 (>60) BUN/Creatinine Ratio 15.1 (8-20) Glucose 236 H (70-100) mg/dL Lactic Acid (0.5-2.0) mmol/L Calcium 9.3 (8.6-10.3) mg/dL Magnesium 2.1 (1.9-2.7) mg/dL Total Bilirubin 0.60 (0.2-1.0) mg/dL AST 16 (13-39) U/L ALT 14 (7-52) U/L Alkaline Phosphatase 106 H (34-104) U/L Total Creatine Kinase 63 (10-223) U/L CK-MB (CK-2) 3.2 (0.6-6.3) ng/mL Troponin I 0.02 (<0.04) ng/mL C-Reactive Protein 16.22 H (< 5.00) mg/L B-Natriuretic Peptide 442 H ( - 100) pg/mL Total Protein 7.4 (6.4-8.9) g/dL Albumin 3.8 (3.2-5.2) g/dL Globulin 3.6 (2-4) g/dL Albumin/Globulin Ratio 1.1 (1-3) TSH 7.26 H (0.34-5.60) mcIU/mL Free T4 1.09 (0.61-1.12) ng/dL Thyroxine (T4) 7.41 (6.09-12.23) mcg/mL Free T3 3.20 (2.5-3.9) pg/mL 10/05/17 10/05/17 Range/Units 10:13 10:13 WBC (3.5-10.8) 10^3/ul RBC (4.0-5.4) 10^6/ul Hgb (12.0-16.0) g/dl Hct (35-47) % MCV (80-97) fL MCH (27-31) pg MCHC (31-36) g/dl RDW (10.5-15) % Plt Count (150-450) 10^3/ul MPV (7.4-10.4) um3 Neut % (Auto) (38-83) % Lymph % (Auto) (25-47) % [place] % (Auto) (1-9) % Eos % (Auto) (0-6) % Baso % (Auto) (0-2) % Absolute Neuts (auto) (1.5-7.7) 10^3/ul Absolute Lymphs (auto) (1.0-4.8) 10^3/ul Absolute Monos (auto) (0-0.8) 10^3/ul Absolute Eos (auto) (0-0.6) 10^3/ul Absolute Basos (auto) (0-0.2) 10^3/ul Absolute Nucleated RBC 10^3/ul Nucleated RBC % ESR (0-30) mm/Hr INR (Anticoag Therapy) 1.76 H (0.77-1.02) D-Dimer, Quantitative 495 H (Less Than 230) ng/mL Sodium (133-145) mmol/L Potassium (3.5-5.0) mmol/L Chloride (101-111) mmol/L Carbon Dioxide (22-32) mmol/L Anion Gap (2-11) mmol/L BUN (6-24) mg/dL Creatinine (0.51-0.95) mg/dL Est GFR ( Amer) (>60) Est GFR (Non-Af Amer) (>60) BUN/Creatinine Ratio (8-20) Glucose (70-100) mg/dL Lactic Acid 2.0 (0.5-2.0) mmol/L Calcium (8.6-10.3) mg/dL Magnesium (1.9-2.7) mg/dL Total Bilirubin (0.2-1.0) mg/dL AST (13-39) U/L ALT (7-52) U/L Alkaline Phosphatase (34-104) U/L Total Creatine Kinase (10-223) U/L CK-MB (CK-2) (0.6-6.3) ng/mL Troponin I (<0.04) ng/mL C-Reactive Protein (< 5.00) mg/L B-Natriuretic Peptide ( - 100) pg/mL Total Protein (6.4-8.9) g/dL Albumin (3.2-5.2) g/dL Globulin (2-4) g/dL Albumin/Globulin Ratio (1-3) TSH (0.34-5.60) mcIU/mL Free T4 (0.61-1.12) ng/dL Thyroxine (T4) (6.09-12.23) mcg/mL Free T3 (2.5-3.9) pg/mL Result Diagrams: 10/05/17 10:13 10/05/17 10:13 Lab Statement: Any lab studies that have been ordered have been reviewed, and results considered in the medical decision making process. - Radiology Chest XR Xray Interpretation: Positive (See Comments) - IMPRESSION: Cardiomegaly. Dr. Menjivar has reviewed this radiology report. Radiology Interpretation Completed By: Radiologist - EKG 10:00 Cardiac Rate: NL EKG Interpretation: 100% paced rhythm. EKG Comparison: No Significant Change - no significant change compared to . Chest Pain Course/Dx - Course Course Of Treatment: Pt medications reviewed this visit. Allergies noted. Chest XR shows cardiomegaly. EKG shows 100% paced rhythm, with no significant change compared to 06/26/17. In the ED course, the pt was given IV fluids, morphine, prednisone, Benadryl, aspirin. I discussed pt care with Dr. Vidal, hospitalist, who has agreed to admit the pt. - Provider Notifications Discussed Care Of Patient With: Rachid Vidal Time Discussed With Above Provider: 10:57 Instructed by Provider To: Other - I discussed pt care with Dr. Vidal, hospitalist, who has agreed to admit the pt. Discharge - Discharge Plan Condition: Stable Disposition: ADMITTED TO [facility] The documentation as recorded by the Marino hobbs Angela accurately reflects the service I personally performed and the decisions made by me, Belkys Menjivar MD.
[2017-10-05] MEDS ORDERED: Apixaban* 5 MG TAB PO SCH (21:00)
[2017-10-05] MEDS: ROSUVASTATIN 20 MG PO SCH (22:14)
[2017-10-05] MEDS: Metoprolol Succinate XL TAB* 100 MG PO SCH (22:14)
[2017-10-05] MEDS: Rivaroxaban TAB(*) 15 MG PO SCH (22:15)
[2017-10-05] MEDS: Insulin GLARGINE(*) 1 UNITS UNIT SUBCUT SCH (22:16)
[2017-10-05] MEDS: Omeprazole CAP* 20 MG PO SCH (22:27)
[2017-10-05] MEDS ORDERED: diPHENhydraMINE PO* 50 MG PO ONE (23:12)
[2017-10-06 06:54] LABS: ABS Basophils 0 10^3/ul (0-0.2); ABS Eosinophils 0 10^3/ul (0-0.6); ABS Lymphocytes 0.6 10^3/ul (1.0-4.8); ABS Monocytes 0.1 10^3/ul (0-0.8); ABS Neutrophils 10.9 10^3/ul (1.5-7.7); ABS Nucleated RBC 0 10^3/ul; Eosinophil % 0.1 % (0-6); Hematocrit 38 % (35-47); Hemoglobin 11.9 g/dl (12.0-16.0); Lymphocyte % 5.5 % (25-47); Mean Corpuscular HGB Conc 31 g/dl (31-36); Mean Corpuscular Hemoglobin 25 pg (27-31); Mean Corpuscular Volume 81 fL (80-97); Mean Platelet Volume 9 um3 (7.4-10.4); Nucleated Red Blood Cells % 0.1; Platelet Count 259 10^3/ul (150-450); Red Blood Count 4.73 10^6/ul (4.0-5.4); Red Cell Distribution Width 17 % (10.5-15); White Blood Count 11.7 10^3/ul (3.5-10.8)
[2017-10-06 07:08] LABS: EGFR Non-African American 40.3 (>60)
[2017-10-06 07:16] LABS: INR 2.33 (0.77-1.02)
[2017-10-06] MEDS ORDERED: Dextrose 50% Syringe 50 ML* 25 GM/50 ML SYRINGE IV PUSH PRN ×2 (07:19→18:08)
[2017-10-06] MEDS ORDERED: Insulin LISPRO* 1 UNITS UNIT SUBCUT ONE ×3 (07:19→18:09)
[2017-10-06] MEDS: Insulin LISPRO* 1 UNITS UNIT SUBCUT SCH ×4 (08:05→22:04)
[2017-10-06] MEDS ORDERED: diPHENhydraMINE PO* 50 MG PO ONE (08:19)
[2017-10-06] MEDS ORDERED: predniSONE TAB* 50 MG PO ONE (08:19)
[2017-10-06] MEDS ORDERED: Iodixanol* (CONTRAST) 320 MG/ML 100 ML SDV IV ONE (08:24)
--- NOTE | 2017-10-06 09:35 | RAD ---
INDICATION: Chest pain. Short of breath. Evaluate for pulmonary embolus. Recent abnormal/intermediate ventilation/perfusion scan COMPARISON: Ventilation/perfusion scan October 05, 2017 TECHNIQUE: Axial source images were obtained from the thoracic inlet to the hemidiaphragms following administration of [address] angiographic technique was utilized. Coronal and sagittal reconstructed images were acquired. CHEST FINDINGS: Neck/thyroid: The visualized neck to include the thyroid appear normal. Chest wall: There are no acute abnormalities of the bony thorax or chest wall. There is no supraclavicular, infraclavicular, or axillary lymphadenopathy. Lungs : There are no pulmonary parenchymal masses or infiltrates. The pulmonary interstitium appears normal. There are no endobronchial lesions. Cardiomediastinal structures: There is "pruning" of the distal pulmonary arterial tree bilaterally with areas of pulmonary arterial narrowing/adherent thrombus consistent with a low burden of subacute pulmonary emboli The heart is normal in size. There is no pericardial effusion. There is no evidence of aortic aneurysm or dissection. There is no mediastinal or hilar adenopathy. The esophagus appears normal. Pleura : There are no pleural-based masses or effusions. Other: None. IMPRESSION: LOW BURDEN OF SUBACUTE PULMONARY EMBOLI. THIS IS CONSISTENT WITH THE VENTILATION/PERFUSION SCAN FINDINGS FINDINGS.
[2017-10-06] MEDS ORDERED: Fluconazole 100 MG TAB* TAB PO ONE (09:59)
[2017-10-06] MEDS: Spironolactone TAB* 25 MG PO SCH (10:07)
[2017-10-06] MEDS: Rivaroxaban TAB(*) 15 MG PO SCH ×2 (10:07→22:03)
[2017-10-06] MEDS: Metoprolol Succinate XL TAB* 100 MG PO SCH ×2 (10:07→22:03)
[2017-10-06] MEDS: Furosemide TAB* 40 MG PO SCH (10:07)
[2017-10-06] MEDS: Magnesium Oxide TAB* 400 MG PO SCH (10:07)
[2017-10-06] MEDS: Aspirin EC Low Dose* 81 MG TAB.EC PO SCH (10:37)
[2017-10-06] MEDS: CMC:Glimepiride (NF) 2 MG TAB PO SCH ×2 (12:59→22:42)
--- NOTE | 2017-10-06 18:20 | PN ---
Subjective Date of Service: 10/06/17 Interval History: Pain in chest improved but still present CTA not performed overnight and pt received additional dose of prednisone this AM prior to exam Denies SOB/LH Objective Active Medications: Acetaminophen/Codeine Phosphate (Tylenol/Codeine 30 Mg Tab*) 1 tab PO BEDTIME PRN PRN Reason: PAIN Last Admin: 10/06/17 01:11 Dose: 1 tab Aspirin (Aspirin Ec Low Dose*) 81 mg PO QAM [facility] Last Admin: 10/06/17 10:37 Dose: 81 mg Dextrose (D50w Syringe 50 Ml*) 12.5 gm IV PUSH .FOR FS < 60 - SS PRN PRN Reason: FS < 60 Furosemide (Lasix Tab*) 40 mg PO QAM [facility] Last Admin: 10/06/17 10:07 Dose: 40 mg Glimepiride (Glimepiride (Nf)) 4 mg PO BID [facility] PRN Reason: Protocol Last Admin: 10/06/17 12:59 Dose: 4 mg Insulin Glargine (Lantus(*)) 35 units SUBCUT BEDTIME [facility] Last Admin: 10/05/17 22:16 Dose: 35 units Insulin Human Lispro (Humalog*) 0 units SUBCUT ACHS [facility] PRN Reason: Protocol Last Admin: 10/06/17 18:12 Dose: Not Given Magnesium Oxide (Magox 400 Tab*) 400 mg PO DAILY [facility] Last Admin: 10/06/17 10:07 Dose: 400 mg Metoclopramide HCl (Reglan Iv*) 10 mg IV Q6H PRN PRN Reason: NAUSEA/VOMITING Last Admin: 10/05/17 15:03 Dose: 10 mg Metoprolol Succinate (Toprol Xl Tab*) 100 mg PO BID [facility] Last Admin: 10/06/17 10:07 Dose: 100 mg Nitroglycerin (Nitroglycerin Tab 0.4 Mg*) 0.4 mg SL Q5M PRN PRN Reason: Pain - Chest, max 3 doses Omeprazole (Prilosec Cap*) 40 mg PO BEDTIME [facility] Last Admin: 10/05/17 22:27 Dose: 40 mg Oxycodone HCl (Roxycodone Tab*) 10 mg PO Q4H PRN PRN Reason: PAIN Rivaroxaban (Xarelto(*)) 15 mg PO Q12H [facility] Last Admin: 10/06/17 10:07 Dose: 15 mg Rosuvastatin Calcium (Crestor (Nf)) 40 mg PO BEDTIME [facility] Last Admin: 10/05/17 22:14 Dose: 40 mg Spironolactone (Aldactone Tab*) 50 mg PO QAM [facility] Last Admin: 10/06/17 10:07 Dose: 50 mg Vital Signs - 8 hr 10/06/17 10/06/17 10/06/17 10:39 11:14 16:05 Temperature 97.7 F 99.2 F Pulse Rate 70 71 Respiratory 18 18 14 Rate Blood Pressure 138/75 120/52 (mmHg) O2 Sat by Pulse 98 97 Oximetry Oxygen Devices in Use Now: None Appearance: NAD Eyes: No Scleral Icterus, PERRLA Ears/Nose/Mouth/Throat: Mucous Membranes Moist Neck: NL Appearance and Movements; NL JVP, Trachea Midline Respiratory: Symmetrical Chest Expansion and Respiratory Effort, Clear to Auscultation, - - tenderness to palpation over left chest wall Cardiovascular: RRR Abdominal: NL Sounds; No Tenderness; No Distention, No Hepatosplenomegaly Neurological: Alert and Oriented x 3 Result Diagrams: 10/06/17 06:38 10/06/17 06:38 Additional Lab and Data: Lab Results 10/05/17 10/05/17 10/05/17 Range/Units 10:13 10:13 10:13 WBC 7.8 (3.5-10.8) 10^3/ul RBC 4.87 (4.0-5.4) 10^6/ul Hgb 12.3 (12.0-16.0) g/dl Hct 39 (35-47) % MCV 80 (80-97) fL MCH 25 L (27-31) pg MCHC 32 (31-36) g/dl RDW 17 H (10.5-15) % Plt Count 272 (150-450) 10^3/ul MPV 8 (7.4-10.4) um3 Neut % (Auto) 78.0 (38-83) % Lymph % (Auto) 15.9 L (25-47) % [place] % (Auto) 4.5 (1-9) % Eos % (Auto) 0.8 (0-6) % Baso % (Auto) 0.8 (0-2) % Absolute Neuts (auto) 6.1 (1.5-7.7) 10^3/ul Absolute Lymphs (auto) 1.2 (1.0-4.8) 10^3/ul Absolute Monos (auto) 0.3 (0-0.8) 10^3/ul Absolute Eos (auto) 0.1 (0-0.6) 10^3/ul Absolute Basos (auto) 0.1 (0-0.2) 10^3/ul Absolute Nucleated RBC 0 10^3/ul Nucleated RBC % 0.1 ESR 45 H (0-30) mm/Hr INR (Anticoag Therapy) (0.77-1.02) D-Dimer, Quantitative (Less Than 230) ng/mL Sodium 137 (133-145) mmol/L Potassium 3.9 (3.5-5.0) mmol/L Chloride 101 (101-111) mmol/L Carbon Dioxide 29 (22-32) mmol/L Anion Gap 7 (2-11) mmol/L BUN 19 (6-24) mg/dL Creatinine 1.26 H (0.51-0.95) mg/dL Est GFR ( Amer) 55.2 (>60) Est GFR (Non-Af Amer) 42.9 (>60) BUN/Creatinine Ratio 15.1 (8-20) Glucose 236 H (70-100) mg/dL Lactic Acid (0.5-2.0) mmol/L Calcium 9.3 (8.6-10.3) mg/dL Magnesium 2.1 (1.9-2.7) mg/dL Total Bilirubin 0.60 (0.2-1.0) mg/dL AST 16 (13-39) U/L ALT 14 (7-52) U/L Alkaline Phosphatase 106 H (34-104) U/L Total Creatine Kinase 63 (10-223) U/L CK-MB (CK-2) 3.2 (0.6-6.3) ng/mL Troponin I 0.02 (<0.04) ng/mL C-Reactive Protein 16.22 H (< 5.00) mg/L B-Natriuretic Peptide 442 H ( - 100) pg/mL Total Protein 7.4 (6.4-8.9) g/dL Albumin 3.8 (3.2-5.2) g/dL Globulin 3.6 (2-4) g/dL Albumin/Globulin Ratio 1.1 (1-3) TSH 7.26 H (0.34-5.60) mcIU/mL Free T4 1.09 (0.61-1.12) ng/dL Thyroxine (T4) 7.41 (6.09-12.23) mcg/mL Free T3 3.20 (2.5-3.9) pg/mL 10/05/17 10/05/17 Range/Units 10:13 10:13 WBC (3.5-10.8) 10^3/ul RBC (4.0-5.4) 10^6/ul Hgb (12.0-16.0) g/dl Hct (35-47) % MCV (80-97) fL MCH (27-31) pg MCHC (31-36) g/dl RDW (10.5-15) % Plt Count (150-450) 10^3/ul MPV (7.4-10.4) um3 Neut % (Auto) (38-83) % Lymph % (Auto) (25-47) % [place] % (Auto) (1-9) % Eos % (Auto) (0-6) % Baso % (Auto) (0-2) % Absolute Neuts (auto) (1.5-7.7) 10^3/ul Absolute Lymphs (auto) (1.0-4.8) 10^3/ul Absolute Monos (auto) (0-0.8) 10^3/ul Absolute Eos (auto) (0-0.6) 10^3/ul Absolute Basos (auto) (0-0.2) 10^3/ul Absolute Nucleated RBC 10^3/ul Nucleated RBC % ESR (0-30) mm/Hr INR (Anticoag Therapy) 1.76 H (0.77-1.02) D-Dimer, Quantitative 495 H (Less Than 230) ng/mL Sodium (133-145) mmol/L Potassium (3.5-5.0) mmol/L Chloride (101-111) mmol/L Carbon Dioxide (22-32) mmol/L Anion Gap (2-11) mmol/L BUN (6-24) mg/dL Creatinine (0.51-0.95) mg/dL Est GFR ( Amer) (>60) Est GFR (Non-Af Amer) (>60) BUN/Creatinine Ratio (8-20) Glucose (70-100) mg/dL Lactic Acid 2.0 (0.5-2.0) mmol/L Calcium (8.6-10.3) mg/dL Magnesium (1.9-2.7) mg/dL Total Bilirubin (0.2-1.0) mg/dL AST (13-39) U/L ALT (7-52) U/L Alkaline Phosphatase (34-104) U/L Total Creatine Kinase (10-223) U/L CK-MB (CK-2) (0.6-6.3) ng/mL Troponin I (<0.04) ng/mL C-Reactive Protein (< 5.00) mg/L B-Natriuretic Peptide ( - 100) pg/mL Total Protein (6.4-8.9) g/dL Albumin (3.2-5.2) g/dL Globulin (2-4) g/dL Albumin/Globulin Ratio (1-3) TSH (0.34-5.60) mcIU/mL Free T4 (0.61-1.12) ng/dL Thyroxine (T4) (6.09-12.23) mcg/mL Free T3 (2.5-3.9) pg/mL Assess/Plan/Problems-Billing Assessment: 62 yo F presenting with chest pain found with subacute PEs while on eliquis - Patient Problems (1) Recurrent pulmonary embolism Comment: Not clear PEs are source of chest pain but are notible in their development while on eliquis Pt currently on xarelto but I have asked hematology for assistance in choosing best agent for AC after her failure (2) Diabetes Comment: uncontrolled in setting of steroids c/w lantus restarted glimeperide lispro SS (3) Chest pain Comment: present and still localized to left chest wall PE possible given presence but chostocondritis or muscle strain also likely given reproducibility with palpation
--- NOTE | 2017-10-06 21:27 | CONS ---
MEDICAL ONCOLOGY/HEMATOLOGY CONSULTATION NOTE: DATE OF CONSULT: 10/06/17 REASON FOR CONSULTATION: Recurrent DVT/PE, hypercoagulable state. HISTORY OF PRESENT ILLNESS: Kinjal Alcantar is a 62-year-old female with multiple medical problems including ischemic cardiomyopathy with ejection fraction of less than 20%, coronary artery disease, implantable defibrillator, diabetes mellitus. In February of 2016, she developed what she calls a Charley horse in her right leg lasting at least a week. She was seen in the emergency room at [facility]. She had a Doppler study done of the legs which revealed bilateral tibial DVTs. By the time she had a CTA done a couple of days later after being treated with steroids for contrast allergy, the CTA was reported to be negative. However, at that time she had felt significant shortness of breath and chest pain and questions whether she could potentially have had a PE at that time. The V/Q scan at that time was indeterminate. She was placed on Eliquis 10 mg b.i.d. for 5 days and then went to therapeutic chronic dosing at 5 mg b.i.d. Four to five days later, she had redness and swelling in the same right leg. She at that point went to [place] and after having had problems with recurrent episodes of V-tach and had her ICD reprogrammed and also was placed on LA stockings. In August of 2016 or early September of 2016, she had a Doppler study done of the legs which was negative and she stopped the Eliquis after a total of 6 months. This Doppler was done at [facility] at [facility]. She subsequently saw her landscaping manager, Dr. Bucio who convinced her primary care physician to put her back on prophylactic dosing of Eliquis given that her initial DVT had no provocation. She remained on Eliquis 2.5 mg b.i.d. In April of 2017, she noticed some achiness in the left leg which was contralateral to her original symptoms, although the original Doppler had been positive bilaterally. She had a Doppler study done again at [facility] and this revealed a left calf thrombus. She was placed back on Eliquis at 10 mg b.i.d. for 5 days and then kept of 5 b.i.d. subsequently. Two months later in June of 2017, she had several shocks of her defibrillator which was the first time since it was placed many years before. She was found to have a broken wire and her ICD was replaced at [facility] in [place]. Whilst in the hospital, she developed significant swelling in her left arm postprocedure and was found to have a positive Doppler in the left arm for a new clot. She was kept on Eliquis at 5 mg b.i.d. Over the past several weeks, the patient has noted days when she is much more short of breath and days when she is felt somewhat better. She also then the day prior to admission felt left-sided chest pain. She presented to the emergency room and ruled out for an VT by negative troponins. Studies done since the hospitalization included a V/Q scan at 12 p.m. on 10/05/17 which was read as multiple small unmatched subsegmental perfusion defects. The periphery of the left upper lower lobes appear to be new or increased compared to the February 2016 study concerning for potential pulmonary emboli. It was felt to be overall an indeterminant study. She subsequently was treated with steroids and premedications while I would receive the contrast for a CTA which was performed on 10/06/17 at early in the morning. This revealed a low burden of subacute pulmonary emboli consistent with a ventilation perfusion defects seen on the prior V/Q scan. She was switched off of Eliquis and placed instead of the apixaban or Eliquis on Xarelto or rivaroxaban. These are both factor Xa inhibitors. She reports today her major concerns are her markedly elevated blood sugars after having received the Decadron yesterday. Her blood sugars even this evening remain over 400. Overall, she is feeling somewhat better in terms of her breathing and in terms of chest pain. We were asked to see her in regard to recommendations for anticoagulation. PAST MEDICAL HISTORY: As noted above: 1. Ischemic cardiomyopathy with ejection fraction less than 20%. 2. Implantable defibrillator/pacemaker replaced in the fall of 2016. 3. Type 2 diabetes mellitus. 4. Obesity. 5. COPD. 6. History of atrial fibrillation. 7. DVT and PE as discussed above. ALLERGIES: Multiple and well documented in Dr. Vidal's admission note. PLAN/RECOMMENDATIONS: Situation was discussed at length with the patient and careful history taken in regard to her previous thromboembolic history. It should also be noted that her sister has had clotting in her lower extremities requiring surgery from Dr. Angela for blockages and is currently on anticoagulation which the patient believes to be Pradaxa. The patient has shown a failure on factor Xa inhibitors of Eliquis; therefore, I do not believe that Xarelto or rivaroxaban would be a suitable alternative. There are 3 potential alternatives, these will include Coumadin, these will also include heparin/low molecular heparin or include a thrombin inhibitor such as Pradaxa or dabigatran. The patient is extremely reluctant to take shots on a regular basis and also essentially refuses to be on Coumadin. Switching from one novel or anticoagulant class to another such as switching from factor Xa initiators to thrombin inhibitors will be a perfectly logical switch in this situation. I am not aware of any literature evidence to confirm this being appropriate however. I would make the recommendation that she be placed on Lovenox on a dose of 1 mg/ kg b.i.d. for 5 days and then switched to dabigatran. Dabigatran should be started approximately 2 hours before the next dose of Lovenox is due or 10 hours after the previous dose administered. She is to remain on dabigatran at a dose of 150 mg b.i.d. She is known to have acceptable renal function and there is no need for dosing based on hepatic function. There is fortunately a reversal agent for dabigatran which could be used if she would have bleeding in the future. This agent has been available since 2016. If she were to discontinue the dabigatran, she would be an extremely high risk for thromboembolic events and she should continue on it lifelong. [id number]/[facility] #: [id number] [facility]
[2017-10-06] MEDS: ROSUVASTATIN 20 MG PO SCH (22:02)
[2017-10-06] MEDS: Omeprazole CAP* 20 MG PO SCH (22:03)
[2017-10-06] MEDS: Insulin GLARGINE(*) 1 UNITS UNIT SUBCUT SCH (22:05)
[2017-10-07] MEDS: Metoprolol Succinate XL TAB* 100 MG PO SCH (08:37)
[2017-10-07] MEDS: CMC:Glimepiride (NF) 2 MG TAB PO SCH (08:37)
[2017-10-07] MEDS: Aspirin EC Low Dose* 81 MG TAB.EC PO SCH (08:37)
[2017-10-07] MEDS: Spironolactone TAB* 25 MG PO SCH (08:37)
[2017-10-07] MEDS: Magnesium Oxide TAB* 400 MG PO SCH (08:38)
[2017-10-07] MEDS: Rivaroxaban TAB(*) 15 MG PO SCH (08:38)
[2017-10-07] MEDS: Furosemide TAB* 40 MG PO SCH (08:38)
[2017-10-07] MEDS: Insulin LISPRO* 1 UNITS UNIT SUBCUT SCH ×3 (08:38→17:32)
[2017-10-07] MEDS ORDERED: Enoxaparin(*) 150 MG/ML 1 ML SYRINGE SUBCUT SCH (11:00)
[2017-10-07 11:10] LABS: Urine Appearance Cloudy; Urine Blood 1+ (Negative); Urine Color Yellow; Urine Ketones Negative (Negative); Urine Protein 2+(100 mg/dL) (Negative); Urine Specific Gravity 1.016 (1.010-1.030); Urine Urobilinogen Negative (Negative)
[2017-10-07] MEDS: Metoclopramide IV* 5 MG/ML 2 ML VIAL IV PRN (12:25)
[2017-10-07 16:13] VITALS: BP 122/61
--- NOTE | 2017-10-08 09:16 | DS ---
CC: Dr. Carson; Dr. Bucio DISCHARGE SUMMARY: DATE OF ADMISSION: 10/05/17 DATE OF DISCHARGE: 10/07/17 PRIMARY CARE PROVIDER: Dr. Carson. CIRCULAR SAW OPERATOR: Dr. Bucio. PRIMARY DIAGNOSIS: Subacute pulmonary embolisms. SECONDARY DIAGNOSES: Include history of deep vein thromboses, insulin dependent type 2 diabetes [place] itus, ischemic cardiomyopathy with EF less than 20%, obesity, chronic obstructive pulmonary disease, atrial fibrillation. CONSULTATIONS OBTAINED DURING THE COURSE OF HOSPITAL STAY: Include Hematology/Oncology. MEDICATIONS ON DISCHARGE: Include: 1. Glargine 35 units at bedtime. 2. Prilosec 40 mg at bedtime. 3. Magnesium oxide 400 mg daily. 4. Tylenol with codeine 30 mg 1 tablet at bedtime as needed. 5. Nitroglycerin sublingual 0.4 mg as needed for chest pain. 6. Glimepiride 4 mg twice daily. 7. Lasix 40 mg daily. 8. Spironolactone 50 mg daily. 9. Rosuvastatin 40 mg at bedtime. 10. Metoprolol succinate 100 mg twice daily. 11. Aspirin 81 mg daily. 12. Enoxaparin 110 mg twice daily for 5 days. 13. Pradaxa 150 mg twice daily to start 2 hours before the last dose of Lovenox on Wednesday, the , in the evening. The administration of this Pradaxa was discussed at length with the patient as well as written on her discharge instructions. The patient was provided with the first 2 doses of Loven ox for tonight and tomorrow morning after discussion with her pharmacy who indicated they will not re ceive Lovenox pens until tomorrow at 3 p.m. PERTINENT LABORATORY DATA: Urine was positive for leuk esterase, 1+ white blood cells, as well as sq uamous epithelial cells, absent for bacteria, nitrites. HISTORY OF PRESENT ILLNESS AND HOSPITAL COURSE: This is a 62-year-old female with past medical histo ry as outlined in the history of present illness on the day of admission, she developed left chest wa ll pain, presented to the hospital. There was concern for pulmonary embolism given her history of re current DVTs and PEs. This also had a low suspicion for this diagnosis given the reproducibility of p ain on her left chest wall to palpation; however, CTA performed with premedication with steroids and Benadryl secondary to allergy to IV dye was performed and indicated low burden of subacute pulmonary emboli. Given the newly diagnosed subacute pulmonary emboli on Eliquis, Hematology consult was james oleary and in conjunction with patient, the patient was transitioned to Lovenox for 5 days to be transit ioned to Pradaxa 2 hours prior to her last dose of Lovenox. Lovenox teaching was delivered to blake t with understanding, verbalized, and demonstrated for administration of medication. Complications t o the patient's hospital course include hyperglycemia in the setting of steroids administered for pre medication prior to IV dye. The patient did have a rash that she photographed on her face approximat ana 8 to 12 hours after receipt of CTA. This author did not see a rash at the time of its presentati on, it is not documented at other places other than one picture on her telephone, unclear whether thi s represented an allergy to the IV dye. She had no difficulties with breathing, swelling of the tong ue, or hives with premedication for her CTA of her chest. The patient should remain on lifelong anti coagulation secondary to recurrent DVTs and breakthrough PEs on Eliquis. The patient understands [facility] information. At followup please; 1. Evaluate for continued maintenance therapy and tolerance of Pradaxa. 2. No other specific labs or vitals that need followup. 3. Evaluate for any evidence of urinary symptoms, had trace leuk esterase without bacteria or nitrit es in her urine. The patient was not treated for urinary tract infection. Culture is pending at [facility] s point. Reasons to return to the hospital included, but not limited to recurrent or worsening symptoms includ ing chest pain, shortness of breath, nausea, vomiting, lightheadedness, loss of consciousness, or cely r loss of consciousness, bleeding from any source, inability to obtain or tolerate medications discu ssed with the patient. She acknowledged understanding. TIME SPENT: Greater than 90 minutes was spent in the discharge of this patient, greater than half wa s spent [id number] with the patient. [id number]/[facility] #: [id number]
== END 2017-10-07 17:44 | disposition home or self-care (01) ==
LOC: ED 09:48 → MEDTELE 12:11
PROVIDERS: ADMIT Internal Medicine; ATTEND Internal Medicine
DX: I26.99 Other pulmonary embolism without acute cor pulmonale (principal); I25.5 Ischemic cardiomyopathy; E66.9 Obesity, unspecified; R07.9 Chest pain, unspecified; R06.02 Shortness of breath; Z95.0 Presence of cardiac pacemaker; Z79.82 Long term (current) use of aspirin; Z87.891 Personal history of nicotine dependence; E11.9 Type 2 diabetes mellitus without complications; Z87.09 Personal history of other diseases of the respiratory system; Z95.5 Presence of coronary angioplasty implant and graft; I25.2 Old myocardial infarction
CPT/HCPCS: 36415; 71045; 71275; 78582; 80048; 80053; 81003; 81015; 82550; 82553; 82947; 83605; 83735; 83880; 84436; 84439; 84443; 84481; 84484; 85025; 85379; 85610; 85652; 86140; 87086; 93005; 96365; 96366; 96375; 99284; A9270-GY; A9540; A9558; G0378; J1650; J2270; J2765; J7512; Q9967

== ENCOUNTER 2017-10-12 10:47 | Emergency (ER) | payer MEDICARE ==
[2017-10-12] MEDS ORDERED: NS 0.9% 1000 ML* 1,000 ML IV ONE (11:11)
[2017-10-12] MEDS ORDERED: Meclizine TAB* 12.5 MG PO ONE (11:11)
[2017-10-12 11:31] LABS: ABS Basophils 0.1 10^3/ul (0-0.2); ABS Eosinophils 0.1 10^3/ul (0-0.6); ABS Lymphocytes 1.3 10^3/ul (1.0-4.8); ABS Monocytes 0.5 10^3/ul (0-0.8); ABS Neutrophils 6.5 10^3/ul (1.5-7.7); ABS Nucleated RBC 0 10^3/ul; Hematocrit 41 % (35-47); Lymphocyte % 15.3 % (25-47); Mean Corpuscular HGB Conc 32 g/dl (31-36); Mean Corpuscular Hemoglobin 25 pg (27-31); Mean Corpuscular Volume 79 fL (80-97); Mean Platelet Volume 8 um3 (7.4-10.4); Nucleated Red Blood Cells % 0; Platelet Count 250 10^3/ul (150-450); Red Blood Count 5.15 10^6/ul (4.0-5.4); Red Cell Distribution Width 17 % (10.5-15); White Blood Count 8.4 10^3/ul (3.5-10.8)
[2017-10-12] MEDS ORDERED: Meclizine TAB* 12.5 MG ONE (11:45)
--- NOTE | 2017-10-12 11:57 | RAD ---
HISTORY: Dizziness COMPARISONS: September 03, 2016 TECHNIQUE: Multiple contiguous axial CT scans were obtained of the head without intravenous contrast. FINDINGS: HEMORRHAGE/INFARCT: There is no hemorrhage or acute infarct. MASSES/SHIFT: There is no mass or shift. EXTRA-AXIAL SPACES: There are no extra-axial fluid collections. SULCI AND VENTRICLES: The sulci and ventricles are normal in size and position for the patient's stated age. CEREBRUM: There are no focal parenchymal abnormalities. BRAINSTEM: There are no focal parenchymal abnormalities. CEREBELLUM: There are no focal parenchymal abnormalities. VESSELS: The vessels are grossly normal. PARANASAL SINUSES: The paranasal sinuses are clear. ORBITS: The orbits are unremarkable. BONES AND SOFT TISSUE: No bone or soft tissue abnormalities are noted. OTHER: None IMPRESSION: NO ACUTE INTRACRANIAL PATHOLOGY.
--- NOTE | 2017-10-12 12:06 | RAD ---
HISTORY: Dizziness COMPARISONS: October 05, 2017 VIEWS: 1: frontal portable view of the chest at 11:35 AM FINDINGS: LINES AND TUBES: A left-sided ICD pacemaker is noted. CARDIOMEDIASTINAL SILHOUETTE: The cardiac silhouette is enlarged. The cardiomediastinal silhouette is otherwise normal for portable technique. PLEURA: The costophrenic angles are sharp. No pleural abnormalities are noted. LUNG PARENCHYMA: The lungs are clear. ABDOMEN: The upper abdomen is clear. There is no subphrenic gas. BONES AND SOFT TISSUES: No bone or soft tissue abnormalities are noted. IMPRESSION: CARDIOMEGALY. NO ACTIVE CARDIOPULMONARY DISEASE.
[2017-10-12 12:09] LABS: EGFR Non-African American 42.9 (>60)
[2017-10-12 12:18] LABS: Urine Appearance Clear; Urine Blood 1+ (Negative); Urine Color Straw; Urine Ketones Negative (Negative); Urine Protein Negative (Negative); Urine Specific Gravity 1.008 (1.010-1.030); Urine Urobilinogen Negative (Negative)
[2017-10-12 13:41] VITALS: BP 118/98
--- NOTE | 2017-10-13 08:07 | ED ---
Marino Bradley Angela, scribed for Filemon Gilbert MD on 10/12/17 at 1112 . Dizziness - HPI Summary HPI Summary: This pt is a 62 y/o female presenting to [facility] c/o dizziness. Pt reports she was talking to her kids on the phone when suddenly she began to feel dizzy. She describes room spinning feeling. Additionally states diaphoresis, nausea, and intermittent SOB. Pt currently notes she has slight headache and fatigue. Pt notes she has had cold symptoms in the past days and ear ache. She denies chest pain, palpitations. She was discharged 5 days ago on 10/07/17 from [facility]. - History Of Current Complaint Stated Complaint: DIZZY Time Seen by Provider: 10/12/17 10:56 Hx Obtained From: Patient Onset/Duration: Suddenly Timing: Hours Severity Initially: Severe Character: Room Spinning, Dizzy Aggravating Factor(s): Nothing Alleviating Factor(s): Nothing Associated Signs And Symptoms: Positive: Diaphoresis, SOB, Other: - headache. Negative: Chest Pain, Palpitations - Allergies/Home Medications Allergies/Adverse Reactions: Allergies Allergy/AdvReac Type Severity Reaction Status Date / Time Metformin Allergy Severe CHEST PAIN Verified 02/26/16 16:11 & RASH Sitagliptin [From Januvia] Allergy Severe CHEST PAIN Verified 02/26/16 16:11 & RASH Tetracyclines Allergy Severe Hives Verified 02/26/16 16:11 Ondansetron [From Zofran] Allergy Mild Itching Verified 02/26/16 16:11 Latex Allergy Unknown Unknown Verified 02/26/16 16:11 Reaction Details Meperidine [From Demerol HCl] Allergy Unknown Unknown Verified 02/26/16 16:11 Reaction Details Propoxyphene [From Darvon] Allergy Unknown Unknown Verified 02/26/16 16:11 Reaction Details Bee Venom Allergy Anaphylatic Verified 10/06/17 09:00 Shock Cephalosporins Allergy Anaphylatic Verified 02/26/16 16:11 Shock Iodinated Diagnostic Agents Allergy Unknown Verified 02/26/16 16:11 Reaction Details Losartan Allergy Unknown Verified 02/26/16 16:11 Reaction Details Niacin [From Niaspan] Allergy Unknown Verified 02/26/16 16:11 Reaction Details NSAIDs Allergy See Comment Verified 02/26/16 16:11 Penicillin G Allergy Hives/Diff. Verified 02/26/16 16:11 Breathing/I tching Penicillin V Allergy Hives Verified 02/26/16 16:11 Ramipril Allergy Unknown Verified 02/26/16 16:11 Reaction Details Atorvastatin AdvReac Intermediate Muscle Ache Verified 02/26/16 16:11 Acellular Pertussis AdvReac Swelling Verified 02/26/16 16:11 [From Boostrix] Diphtheria Toxoid AdvReac Swelling Verified 02/26/16 16:11 [From Boostrix] Tetanus Toxoid, Adsorbed AdvReac Swelling Verified 02/26/16 16:11 [From Boostrix] CONTRAST DYE Allergy Unknown Unknown Uncoded 05/30/15 16:10 Reaction Details Home Medications: Home Medications Dabigatran CAP(NF) [Pradaxa CAP(NF)] 150 mg PO BID 10/12/17 [History Confirmed 10/12/17] Magnesium Oxide TAB* [MagOx 400 TAB*] 400 mg PO QAM 10/12/17 [History Confirmed 10/12/17] Nitroglycerin TAB 0.4 MG* 0.4 mg SL DAILY PRN 10/12/17 [History Confirmed ] PMH/Surg Hx/FS Hx/Imm Hx Endocrine/Hematology History: Reports: Hx Diabetes, Hx Anemia Denies: Hx Thyroid Disease Cardiovascular History: Reports: Hx Angina, Hx Auto Implanted Cardiovert Defib, Hx Congestive Heart Failure, Hx Coronary Artery Disease - STENT, Hx Deep Vein Thrombosis, Hx Hypercholesterolemia, Hx Hypertension, Hx Myocardial Infarction, Hx Pacemaker/ICD, Other Cardiovascular Problems/Disorders - CAD with LVEF less than 20% Respiratory History: Reports: Hx Chronic Obstructive Pulmonary Disease (COPD), Hx Sleep Apnea - CPAP, Other Respiratory Problems/Disorders - chronic shortness of breath Denies: Hx Asthma, Hx Chronic Bronchitis GI History: Reports: Other GI Disorders - periods of chronic diarrhea Denies: Hx Ulcer History: Denies: Hx Renal Disease Musculoskeletal History: Reports: Hx Arthritis - HANDS, RT ANKLE, SHOULDERS Sensory History: Reports: Hx Contacts or Glasses - glasses Denies: Hx Cataracts, Hx Eye Injury, Hx Eye Prosthesis, Hx Glaucoma, Hx Legally Blind, Hx Macular Degeneration, Hx Vision Problem, Hx Deafness, Hx Hearing Aid, Hx Hearing Problem, Other Sensory Impairments Opthamlomology History: Reports: Hx Contacts or Glasses - glasses Denies: Hx Cataracts, Hx Eye Injury, Hx Eye Prosthesis, Hx Glaucoma, Hx Legally Blind, Hx Macular Degeneration, Hx Vision Problem, Other Sensory Impairments Neurological History: Reports: Hx Headaches, Hx Migraine Psychiatric History: Reports: Hx Depression - NO MEDS - Surgical History Surgery Procedure, Year, and Place: 2012 removal of screw in left thumb and trigger release. 2010 PACEMAKER/DEFIB REPLACED [place]. 2005 CARDIAC STENT [place]. 2006 PACEMAKER/DEFIB [place]. 1998 [place]STERECTOMY [place]. 1983 & 1985 C [place]. [place]. 1973 T[place]SILECTOMY [place] Hx Anesthesia Reactions: No - STATES SHE GOES INTO CHF EASILY - Immunization History Date of Tetanus Vaccine: 06/2012 Date of Influenza Vaccine: Fall 2013 Infectious Disease History: Denies: Hx Clostridium Difficile, Hx Hepatitis, Hx Human Immunodeficiency Virus (HIV), Hx of Known/Suspected MRSA, Hx Shingles, Hx Tuberculosis, Hx Known/ Suspected VRE, Hx Known/Suspected VRSA, History Other Infectious Disease - Family History Known Family History: Positive: Other - CANCER, ETOH ABUSE - Social History Alcohol Use: Rare Hx Substance Use: No Substance Use Type: Reports: None Hx Tobacco Use: Yes Smoking Status (MU): Former Smoker Type: Cigarettes Amount Used/How Often: 1 PPD, 3 cigarettes/day by the end Length of Time of Smoking/Using Tobacco: PT states during the time she smoked she stopped off and on . Have You Smoked in the Last Year: No Review of Systems Positive: Fatigue, Skin Diaphoresis. Negative: Fever, Chills ENT: Other - cold symptoms Positive: Ear Ache Negative: Palpitations, Chest Pain Positive: Shortness Of Breath - intermittent Positive: Nausea Neurological: Other - POS: dizziness Positive: Headache All Other Systems Reviewed And Are Negative: Yes Physical Exam - Summary Physical Exam Summary: VITAL SIGNS: Reviewed. GENERAL: Patient is a well-developed and nourished female who is lying comfortable in the stretcher. Patient is not in any acute respiratory distress. HEAD AND FACE: No signs of trauma. No ecchymosis, hematomas or skull depressions. No sinus tenderness. EYES: PERRLA, EOMI x 2, No injected conjunctiva, no nystagmus. EARS: Hearing grossly intact. Ear canals and tympanic membranes are within normal limits. MOUTH: Oropharynx within normal limits. NECK: Supple, trachea is midline, no adenopathy, no JVD, no carotid bruit, no c- spine tenderness, neck with full ROM. CHEST: Symmetric, no tenderness at palpation LUNGS: Clear to auscultation bilaterally. No wheezing or crackles. CVS: Regular rate and rhythm, S1 and S2 present, no murmurs or gallops appreciated. ABDOMEN: Soft, non-tender. No signs of distention. No rebound no guarding, and no masses palpated. Bowel sounds are normal. EXTREMITIES: FROM in all major joints, no edema, no cyanosis or clubbing. NEURO: Alert and oriented x 3. No acute neurological deficits. Speech is normal and follows commands. SKIN: Dry and warm GCS: 15 Triage Information Reviewed: Yes Vital Signs On Initial Exam: Initial Vitals Temp Pulse Resp BP Pulse Ox 98.2 F 76 20 129/62 93 10/12/17 11:04 10/12/17 11:04 10/12/17 11:04 10/12/17 11:04 10/12/17 11:04 Vital Signs Reviewed: Yes - Hope Coma Scale Best Eye Response: 4 - Spontaneous Best Motor Response: 6 - Obeys Commands Best Verbal Response: 5 - Oriented Coma Scale Total: 15 Diagnostics - Vital Signs Vital Signs Temp Pulse Resp BP Pulse Ox 10/12/17 13:40 98.3 F 72 18 118/98 97 10/12/17 13:00 73 21 106/64 95 10/12/17 12:40 73 105/53 95 10/12/17 12:30 70 97/46 95 10/12/17 12:00 66 68/51 96 10/12/17 11:37 117/99 10/12/17 11:23 71 95 10/12/17 11:14 71 95 10/12/17 11:13 129/62 10/12/17 11:04 98.2 F 76 20 129/62 93 - Laboratory Lab Results: Lab Results 10/12/17 10/12/17 10/12/17 Range/Units 11:20 11:20 11:20 WBC (3.5-10.8) 10^3/ul RBC (4.0-5.4) 10^6/ul Hgb (12.0-16.0) g/dl Hct (35-47) % MCV (80-97) fL MCH (27-31) pg MCHC (31-36) g/dl RDW (10.5-15) % Plt Count (150-450) 10^3/ul MPV (7.4-10.4) um3 Neut % (Auto) (38-83) % Lymph % (Auto) (25-47) % [place] % (Auto) (1-9) % Eos % (Auto) (0-6) % Baso % (Auto) (0-2) % Absolute Neuts (auto) (1.5-7.7) 10^3/ul Absolute Lymphs (auto) (1.0-4.8) 10^3/ul Absolute Monos (auto) (0-0.8) 10^3/ul Absolute Eos (auto) (0-0.6) 10^3/ul Absolute Basos (auto) (0-0.2) 10^3/ul Absolute Nucleated RBC 10^3/ul Nucleated RBC % APTT 39.6 H (26.0-36.3) seconds Sodium 135 (133-145) mmol/L Potassium 4.2 (3.5-5.0) mmol/L Chloride 100 L (101-111) mmol/L Carbon Dioxide 27 (22-32) mmol/L Anion Gap 8 (2-11) mmol/L BUN 15 (6-24) mg/dL Creatinine 1.26 H (0.51-0.95) mg/dL Est GFR ( Amer) 55.2 (>60) Est GFR (Non-Af Amer) 42.9 (>60) BUN/Creatinine Ratio 11.9 (8-20) Glucose 224 H (70-100) mg/dL Lactic Acid (0.5-2.0) mmol/L Calcium 9.1 (8.6-10.3) mg/dL Magnesium 2.6 (1.9-2.7) mg/dL Total Bilirubin 0.60 (0.2-1.0) mg/dL AST 27 (13-39) U/L ALT 30 (7-52) U/L Alkaline Phosphatase 80 (34-104) U/L Total Creatine Kinase 34 (10-223) U/L Troponin I 0.01 (<0.04) ng/mL C-Reactive Protein 13.29 H (< 5.00) mg/L B-Natriuretic Peptide 314 H ( - 100) pg/mL Total Protein 7.0 (6.4-8.9) g/dL Albumin 3.6 (3.2-5.2) g/dL Globulin 3.4 (2-4) g/dL Albumin/Globulin Ratio 1.1 (1-3) TSH 6.76 H (0.34-5.60) mcIU/mL Urine Color Urine Appearance Urine pH (5-9) Ur Specific [place] (1.010-1.030) Urine Protein (Negative) Urine Ketones (Negative) Urine Blood (Negative) Urine Nitrate (Negative) Urine Bilirubin (Negative) Urine Urobilinogen (Negative) Ur Leukocyte Esterase (Negative) Urine WBC (Auto) (Absent) Urine RBC (Auto) (Absent) Ur Squamous Epith Cells (Absent) Urine Bacteria (Absent) Hyaline Casts (Absent) Urine Glucose (Negative) Urine Opiates Screen (None Detect) Ur Barbiturates Screen (None Detect) Ur Phencyclidine Scrn (None Detect) Ur Amphetamines Screen (None Detect) U Benzodiazepines Scrn (None Detect) Urine Cocaine Screen (None Detect) U Cannabinoids Screen (None Detect) Serum Alcohol < 10 (<10) mg/dL 10/12/17 10/12/17 10/12/17 Range/Units 11:20 11:20 11:34 WBC 8.4 (3.5-10.8) 10^3/ul RBC 5.15 (4.0-5.4) 10^6/ul Hgb 13.0 (12.0-16.0) g/dl Hct 41 (35-47) % MCV 79 L (80-97) fL MCH 25 L (27-31) pg MCHC 32 (31-36) g/dl RDW 17 H (10.5-15) % Plt Count 250 (150-450) 10^3/ul MPV 8 (7.4-10.4) um3 Neut % (Auto) 77.3 (38-83) % Lymph % (Auto) 15.3 L (25-47) % Dundy % (Auto) 5.5 (1-9) % Eos % (Auto) 1.0 (0-6) % Baso % (Auto) 0.9 (0-2) % Absolute Neuts (auto) 6.5 (1.5-7.7) 10^3/ul Absolute Lymphs (auto) 1.3 (1.0-4.8) 10^3/ul Absolute Monos (auto) 0.5 (0-0.8) 10^3/ul Absolute Eos (auto) 0.1 (0-0.6) 10^3/ul Absolute Basos (auto) 0.1 (0-0.2) 10^3/ul Absolute Nucleated RBC 0 10^3/ul Nucleated RBC % 0 APTT (26.0-36.3) seconds Sodium (133-145) mmol/L Potassium (3.5-5.0) mmol/L Chloride (101-111) mmol/L Carbon Dioxide (22-32) mmol/L Anion Gap (2-11) mmol/L BUN (6-24) mg/dL Creatinine (0.51-0.95) mg/dL Est GFR ( Amer) (>60) Est GFR (Non-Af Amer) (>60) BUN/Creatinine Ratio (8-20) Glucose (70-100) mg/dL Lactic Acid 1.6 (0.5-2.0) mmol/L Calcium (8.6-10.3) mg/dL Magnesium (1.9-2.7) mg/dL Total Bilirubin (0.2-1.0) mg/dL AST (13-39) U/L ALT (7-52) U/L Alkaline Phosphatase (34-104) U/L Total Creatine Kinase (10-223) U/L Troponin I (<0.04) ng/mL C-Reactive Protein (< 5.00) mg/L B-Natriuretic Peptide ( - 100) pg/mL Total Protein (6.4-8.9) g/dL Albumin (3.2-5.2) g/dL Globulin (2-4) g/dL Albumin/Globulin Ratio (1-3) TSH (0.34-5.60) mcIU/mL Urine Color Urine Appearance Urine pH (5-9) Ur Specific [place] (1.010-1.030) Urine Protein (Negative) Urine Ketones (Negative) Urine Blood (Negative) Urine Nitrate (Negative) Urine Bilirubin (Negative) Urine Urobilinogen (Negative) Ur Leukocyte Esterase (Negative) Urine WBC (Auto) (Absent) Urine RBC (Auto) (Absent) Ur Squamous Epith Cells (Absent) Urine Bacteria (Absent) Hyaline Casts (Absent) Urine Glucose (Negative) Urine Opiates Screen Presumptive positive H (None Detect) Ur Barbiturates Screen None detected (None Detect) Ur Phencyclidine Scrn None detected (None Detect) Ur Amphetamines Screen None detected (None Detect) U Benzodiazepines Scrn None detected (None Detect) Urine Cocaine Screen None detected (None Detect) U Cannabinoids Screen None detected (None Detect) Serum Alcohol (<10) mg/dL 10/12/17 Range/Units 11:34 WBC (3.5-10.8) 10^3/ul RBC (4.0-5.4) 10^6/ul Hgb (12.0-16.0) g/dl Hct (35-47) % MCV (80-97) fL MCH (27-31) pg MCHC (31-36) g/dl RDW (10.5-15) % Plt Count (150-450) 10^3/ul MPV (7.4-10.4) um3 Neut % (Auto) (38-83) % Lymph % (Auto) (25-47) % [place] % (Auto) (1-9) % Eos % (Auto) (0-6) % Baso % (Auto) (0-2) % Absolute Neuts (auto) (1.5-7.7) 10^3/ul Absolute Lymphs (auto) (1.0-4.8) 10^3/ul Absolute Monos (auto) (0-0.8) 10^3/ul Absolute Eos (auto) (0-0.6) 10^3/ul Absolute Basos (auto) (0-0.2) 10^3/ul Absolute Nucleated RBC 10^3/ul Nucleated RBC % APTT (26.0-36.3) seconds Sodium (133-145) mmol/L Potassium (3.5-5.0) mmol/L Chloride (101-111) mmol/L Carbon Dioxide (22-32) mmol/L Anion Gap (2-11) mmol/L BUN (6-24) mg/dL Creatinine (0.51-0.95) mg/dL Est GFR ( Amer) (>60) Est GFR (Non-Af Amer) (>60) BUN/Creatinine Ratio (8-20) Glucose (70-100) mg/dL Lactic Acid (0.5-2.0) mmol/L Calcium (8.6-10.3) mg/dL Magnesium (1.9-2.7) mg/dL Total Bilirubin (0.2-1.0) mg/dL AST (13-39) U/L ALT (7-52) U/L Alkaline Phosphatase (34-104) U/L Total Creatine Kinase (10-223) U/L Troponin I (<0.04) ng/mL C-Reactive Protein (< 5.00) mg/L B-Natriuretic Peptide ( - 100) pg/mL Total Protein (6.4-8.9) g/dL Albumin (3.2-5.2) g/dL Globulin (2-4) g/dL Albumin/Globulin Ratio (1-3) TSH (0.34-5.60) mcIU/mL Urine Color Straw Urine Appearance Clear Urine pH 5.0 (5-9) Ur Specific [place] 1.008 L (1.010-1.030) Urine Protein Negative (Negative) Urine Ketones Negative (Negative) Urine Blood 1+ H (Negative) Urine Nitrate Negative (Negative) Urine Bilirubin Negative (Negative) Urine Urobilinogen Negative (Negative) Ur Leukocyte Esterase Trace H (Negative) Urine WBC (Auto) Trace(0-5/hpf) (Absent) Urine RBC (Auto) Trace(0-2/hpf) (Absent) Ur Squamous Epith Cells Present H (Absent) Urine Bacteria Absent (Absent) Hyaline Casts Present H (Absent) Urine Glucose Negative (Negative) Urine Opiates Screen (None Detect) Ur Barbiturates Screen (None Detect) Ur Phencyclidine Scrn (None Detect) Ur Amphetamines Screen (None Detect) U Benzodiazepines Scrn (None Detect) Urine Cocaine Screen (None Detect) U Cannabinoids Screen (None Detect) Serum Alcohol (<10) mg/dL Result Diagrams: 10/12/17 11:20 10/12/17 11:20 Lab Statement: Any lab studies that have been ordered have been reviewed, and results considered in the medical decision making process. - Radiology Chest XR Xray Interpretation: Positive (See Comments) - IMPRESSION: cardiomegaly. No active cardiopulmonary disease. Dr. Gilbert has reviewed this radiology report. Radiology Interpretation Completed By: Radiologist - CT Brain CT CT Interpretation: No Acute Changes - IMPRESSION: No acute intracranial pathology. Dr. Gilbert has reviewed this radiology report. CT Interpretation Completed By: Radiologist - EKG 12:08 Cardiac Rate: NL EKG Interpretation: Atrial pace rhythm at 72 bpm. EKG Comparison: No Significant Change - similar to prior EKG on 10/05/17. Dizzy Course/Dx - Course Course Of Treatment: This pt is a 62 y/o female presenting to [facility] c/o dizziness. Pt reports she was talking to her kids on the phone when suddenly she began to feel dizzy. She describes room spinning feeling. Additionally states diaphoresis, nausea, and intermittent SOB. Pt currently notes she has slight headache and fatigue. Pt notes she has had cold symptoms in the past days and ear ache. She denies chest pain, palpitations. She was discharged 5 days ago on 10/07/17 from [facility]. Test results without any significant abnormalities except for glucose of 224, BNP of 314, CRP of 13, TSH of 6.7. Urinalysis is negative for UTI. Urine toxicology is positive for opiates. Brain CT shows no acute intracranial pathology. CXR reveals cardiomegaly. No active cardiopulmonary disease. In the ED course, the pt was given meclizine and the symptoms improved. Therefore, the pt will be discharged home with follow up from her PCP. Pt is alert and oriented x3. She is ambulating without dizziness. She is eating and drinking without nausea and vomiting. Therefore, I believe the pt has vertigo and will be given a prescription for meclizine. - Diagnoses Differential Diagnosis/HQI/PQRI: Benign Paroxysmal Positional Vertigo, Dysrhythmia, Meniere's Disease, Vasovagal Reaction Provider Diagnoses: Dizziness, Vertigo Discharge - Discharge Plan Condition: Stable Disposition: HOME Prescriptions: Meclizine TAB* [Antivert 12.5 TAB*] 25 mg PO TID PRN #30 tab PRN Reason: Dizziness Patient Education Materials: Dizziness (ED) Referrals: Gia Carson MD [Primary Care Provider] - Additional Instructions: Please follow up with your primary care provider. RETURN TO THE ED FOR ANY WORSENING SYMPTOMS. The documentation as recorded by the Marino hobbs Angela accurately reflects the service I personally performed and the decisions made by me, Filemon Gilbert MD.
== END 2017-10-12 13:40 | disposition home or self-care (01) ==
LOC: ED 10:47
DX: R42 Dizziness and giddiness (principal); R06.02 Shortness of breath; R51 Headache; R11.10 Vomiting, unspecified; Z87.891 Personal history of nicotine dependence
CPT/HCPCS: 36415; 70450; 71045; 80053; 80307; 80320; 81003; 81015; 82550; 83605; 83735; 83880; 84443; 84484; 85025; 85730; 86140; 87086; 93005; 99283; A9270-GY; G0480

== ENCOUNTER 2017-11-28 12:48 | Observation (INO) | payer MEDICARE ==
[2017-11-28] MEDS ORDERED: Enoxaparin(*) 100 MG/ML SYR SUBCUT ONE (13:12)
--- NOTE | 2017-11-28 13:33 | RAD ---
HISTORY: Chest pain COMPARISONS: October 12, 2017 VIEWS: 1: frontal portable view of the chest at 1:26 PM FINDINGS: LINES AND TUBES: A left-sided AICD pacemaker is noted. CARDIOMEDIASTINAL SILHOUETTE: The cardiomediastinal silhouette is stable. PLEURA: The costophrenic angles are sharp. No pleural abnormalities are noted. LUNG PARENCHYMA: The lungs are clear. ABDOMEN: The upper abdomen is clear. There is no subphrenic gas. BONES AND SOFT TISSUES: No bone or soft tissue abnormalities are noted. IMPRESSION: NO ACTIVE CARDIOPULMONARY DISEASE.
[2017-11-28 13:57] LABS: ABS Basophils 0.1 10^3/ul (0-0.2); ABS Eosinophils 0.1 10^3/ul (0-0.6); ABS Lymphocytes 1.5 10^3/ul (1.0-4.8); ABS Monocytes 0.5 10^3/ul (0-0.8); ABS Neutrophils 7.8 10^3/ul (1.5-7.7); ABS Nucleated RBC 0 10^3/ul; Eosinophil % 0.9 % (0-6); Hematocrit 39 % (35-47); Hemoglobin 12.3 g/dl (12.0-16.0); Lymphocyte % 14.5 % (25-47); Mean Corpuscular HGB Conc 31 g/dl (31-36); Mean Corpuscular Hemoglobin 25 pg (27-31); Mean Corpuscular Volume 79 fL (80-97); Mean Platelet Volume 9 um3 (7.4-10.4); Nucleated Red Blood Cells % 0.1; Platelet Count 275 10^3/ul (150-450); Red Blood Count 4.97 10^6/ul (4.0-5.4); Red Cell Distribution Width 18 % (10.5-15)
[2017-11-28 14:03] LABS: INR 1.21 (0.77-1.02)
[2017-11-28 14:35] LABS: Urine Appearance Clear; Urine Blood Negative (Negative); Urine Color Straw; Urine Ketones Negative (Negative); Urine Protein Negative (Negative); Urine Specific Gravity 1.006 (1.010-1.030); Urine Urobilinogen Negative (Negative)
[2017-11-28] MEDS ORDERED: Dextrose 50% Syringe 50 ML* 25 GM/50 ML SYRINGE IV PUSH PRN (15:55)
[2017-11-28] MEDS ORDERED: Ondansetron INJ* 2 MG/ML VIAL IV PRN (15:55)
[2017-11-28] MEDS ORDERED: Enoxaparin(*) 150 MG/ML 1 ML SYRINGE SUBCUT SCH (16:00)
[2017-11-28] MEDS ORDERED: Meclizine TAB* 12.5 MG PO PRN (16:00)
[2017-11-28] MEDS ORDERED: Albuterol 2.5 MG/3 ML NEB.SOL* (0.083%) INH PRN (16:19)
[2017-11-28] MEDS ORDERED: NS 0.9% 500 ML* 500 ML IV ONE (16:20)
[2017-11-28] MEDS ORDERED: NS 0.9% 1000 ML* 1,000 ML IV SCH (16:30)
[2017-11-28] MEDS: Insulin LISPRO* 1 UNITS UNIT SUBCUT SCH (17:33)
[2017-11-28] MEDS: Morphine INJ* 2 MG/ML 1 ML CARPUJECT IV PRN ×2 (17:34→21:13)
[2017-11-28] MEDS: CMC:Rosuvastatin (NF) 20 MG TAB PO SCH (18:16)
[2017-11-28] MEDS: Acetaminophen TAB* 325 MG PO PRN ×2 (18:20→23:18)
--- NOTE | 2017-11-28 18:20 | RAD ---
HISTORY: Recurrent PE COMPARISONS: May 06, 2017 TECHNIQUE: Multiple transverse and longitudinal ultrasound images were obtained of the bilateral lower extremities from the level of the common femoral vein inferiorly through to the infrapopliteal veins using grayscale, color Doppler, and spectral Doppler imaging with and without compression and with augmentation. Comparison images were obtained of the contralateral common femoral vein. FINDINGS: VEINS: The single peroneal vein as noted laterally suggestive of chronic thrombosis of one branch of the duplicated peroneal systems. The remainder of the venous system of the bilateral lower extremities is compressible throughout its course, with normal flow on color Doppler imaging and normal response to augmentation on spectral Doppler imaging. SOFT TISSUES: Unremarkable. OTHER FINDINGS: None. IMPRESSION: FINDINGS SUGGESTIVE OF CHRONIC THROMBOSIS OF THE PERONEAL VEINS BILATERALLY WITHOUT EXTENSION INTO THE POPLITEAL OR SUPRA-POPLITEAL SYSTEM
--- NOTE | 2017-11-28 18:34 | ED ---
Brad Bradley Gabriel, scribed for Filemon Gilbert MD on 11/28/17 at 1321 . Shortness of Breath - HPI Summary HPI Summary: This patient is a 62 year old F presenting to [facility] accompanied by her daughter with a chief complaint of what she believes is a PE. The patient rates the sharp pain 10/10 in severity. Patient reports SOB, left chest pain, and left rib pain. Pt has had 2 past PEs and states this feels similar but worse than the other two. In the last two months the patient has switched from eliquis to pradaxa. She is allergic to IV contrast. - History of Current Complaint Chief Complaint: EDShortnessOfBreath Time Seen by Provider: 11/28/17 13:00 Hx Obtained From: Patient Onset/Duration: Still Present Timing: Constant Current Severity: Severe Dyspnea At: Rest Associated Signs & Symptoms: Chest Pain Unrelated to Cough - Allergy/Home Medications Allergies/Adverse Reactions: Allergies Allergy/AdvReac Type Severity Reaction Status Date / Time bee pollen Allergy Anaphylatic Verified 11/28/17 16:20 Shock bee venom protein (honey bee) Allergy Anaphylatic Verified 11/28/17 16:20 Shock Cephalosporins Allergy Anaphylatic Verified 11/28/17 16:21 Shock diphth,pert Allergy Swelling Verified 11/28/17 16:20 (acell),tet,polio,Haem diphtheria toxoid,adsorbed Allergy Swelling Verified 11/28/17 16:20 diphtheria toxoid,fluid Allergy Swelling Verified 11/28/17 16:20 diphtheria, pertussis, Allergy Swelling Verified 11/28/17 16:20 tetanus vacc diphtheria,pertussis Allergy Swelling Verified 11/28/17 16:20 (acell),tetanu diphtheria,pertussis Allergy Swelling Verified 11/28/17 16:20 (acellular),te diphtheria,pertussis,tetanus, Allergy Swelling Verified 11/28/17 16:20 Haem. diphtheria,pertussis,tetanus,polio Allergy Swelling Verified 11/28/17 16:20 diphtheria,tetanus,Haem. B Allergy Swelling Verified 11/28/17 16:20 conjugat diphtheria,tetanus,poliomyelitis Allergy Swelling Verified 11/28/17 16:20 va inositol Allergy See Comment Verified 11/28/17 16:20 inositol niacinate Allergy Unknown Verified 11/28/17 16:15 [From Niacin No Flush] Reaction Details Iodinated Contrast- Oral and Allergy Unknown Verified 11/28/17 16:21 IV Dye Reaction Details Iodine and Iodide Containing Allergy Unknown Verified 11/28/17 16:21 Produc Reaction Details latex Allergy Unknown Verified 11/28/17 16:13 Reaction Details Latex, Natural Rubber Allergy Unknown Verified 11/28/17 16:13 Reaction Details losartan Allergy Unknown Verified 11/28/17 16:24 Reaction Details meperidine Allergy See Comment Verified 11/28/17 16:20 metformin Allergy See Comment Verified 11/28/17 16:12 niacin Allergy Unknown Verified 11/28/17 16:15 Reaction Details Niacin Preparations Allergy Unknown Verified 11/28/17 16:15 Reaction Details NSAIDS (Non-Steroidal Allergy See Comment Verified 11/28/17 16:20 Anti-Inflamma ondansetron Allergy Itching Verified 11/28/17 16:13 Penicillins Allergy Hives/Diff. Verified 11/28/17 16:24 Breathing/I tching propoxyphene Allergy See Comment Verified 11/28/17 16:20 ramipril Allergy Unknown Verified 11/28/17 16:24 Reaction Details sitagliptin Allergy Rash Verified 11/28/17 16:13 tetanus and diphtheria Allergy Swelling Verified 11/28/17 16:22 toxoids tetanus immune globulin Allergy Swelling Verified 11/28/17 16:22 tetanus toxoid, adsorbed Allergy Swelling Verified 11/28/17 16:22 Tetanus Vaccines and Toxoid Allergy Swelling Verified 11/28/17 16:22 Tetracyclic Antidepressants Allergy Hives Verified 11/28/17 16:13 tetracycline Allergy Hives Verified 11/28/17 16:13 Tetracyclines Allergy Hives Verified 11/28/17 16:13 atorvastatin AdvReac Muscle Ache Verified 11/28/17 16:20 PMH/Surg Hx/FS Hx/Imm Hx Endocrine/Hematology History: Reports: Hx Diabetes, Hx Anemia Denies: Hx Thyroid Disease Cardiovascular History: Reports: Hx Angina, Hx Auto Implanted Cardiovert Defib, Hx Congestive Heart Failure, Hx Coronary Artery Disease - STENT, Hx Deep Vein Thrombosis, Hx Hypercholesterolemia, Hx Hypertension, Hx Myocardial Infarction, Hx Pacemaker/ICD, Other Cardiovascular Problems/Disorders - CAD with LVEF less than 20% Respiratory History: Reports: Hx Chronic Obstructive Pulmonary Disease (COPD), Hx Pulmonary Embolism, Hx Sleep Apnea - CPAP, Other Respiratory Problems/ Disorders - chronic shortness of breath Denies: Hx Asthma, Hx Chronic Bronchitis GI History: Reports: Other GI Disorders - periods of chronic diarrhea Denies: Hx Ulcer History: Denies: Hx Renal Disease Musculoskeletal History: Reports: Hx Arthritis - HANDS, RT ANKLE, SHOULDERS Sensory History: Reports: Hx Contacts or Glasses - glasses Denies: Hx Cataracts, Hx Eye Injury, Hx Eye Prosthesis, Hx Glaucoma, Hx Legally Blind, Hx Macular Degeneration, Hx Vision Problem, Hx Deafness, Hx Hearing Aid, Hx Hearing Problem, Other Sensory Impairments Opthamlomology History: Reports: Hx Contacts or Glasses - glasses Denies: Hx Cataracts, Hx Eye Injury, Hx Eye Prosthesis, Hx Glaucoma, Hx Legally Blind, Hx Macular Degeneration, Hx Vision Problem, Other Sensory Impairments Neurological History: Reports: Hx Headaches, Hx Migraine Psychiatric History: Reports: Hx Depression - NO MEDS - Surgical History Surgery Procedure, Year, and Place: 2012 removal of screw in left thumb and trigger release. 2010 PACEMAKER/DEFIB REPLACED [place]. 2005 CARDIAC STENT [place]. 2006 PACEMAKER/DEFIB [place]. 1998 [place]ERECTOMY [place]. 1983 & 1985 C -SECTIONS [place]. [address] [place]. 1973 T[place]SILECTOMY [place] Hx Anesthesia Reactions: No - STATES SHE GOES INTO CHF EASILY - Immunization History Date of Tetanus Vaccine: 06/2012 Date of Influenza Vaccine: Fall 2013 Infectious Disease History: No Infectious Disease History: Denies: Hx Clostridium Difficile, Hx Hepatitis, Hx Human Immunodeficiency Virus (HIV), Hx of Known/Suspected MRSA, Hx Shingles, Hx Tuberculosis, Hx Known/ Suspected VRE, Hx Known/Suspected VRSA, History Other Infectious Disease, Traveled Outside the in Last 30 Days - Family History Known Family History: Positive: Other - CANCER, ETOH ABUSE - Social History Alcohol Use: Rare Hx Substance Use: No Substance Use Type: Reports: None Hx Tobacco Use: Yes Smoking Status (MU): Former Smoker Type: Cigarettes Amount Used/How Often: 1 PPD, 3 cigarettes/day by the end Length of Time of Smoking/Using Tobacco: PT states during the time she smoked she stopped off and on . Have You Smoked in the Last Year: No Review of Systems Positive: Chest Pain Positive: Shortness Of Breath Positive: Other - rib pain All Other Systems Reviewed And Are Negative: Yes Physical Exam - Summary Physical Exam Summary: VITAL SIGNS: Reviewed. GENERAL: Patient is a well-developed and nourished female who is lying comfortable in the stretcher. Patient is not in any acute respiratory distress. Pt seems anxious HEAD AND FACE: No signs of trauma. No ecchymosis, hematomas or skull depressions. No sinus tenderness. EYES: PERRLA, EOMI x 2, No injected conjunctiva, no nystagmus. EARS: Hearing grossly intact. Ear canals and tympanic membranes are within normal limits. MOUTH: Oropharynx within normal limits. NECK: Supple, trachea is midline, no adenopathy, no JVD, no carotid bruit, no c- spine tenderness, neck with full ROM. CHEST: Symmetric, no tenderness at palpation LUNGS: Clear to auscultation bilaterally. No wheezing or crackles. CVS: Regular rate and rhythm, S1 and S2 present, no murmurs or gallops appreciated. ABDOMEN: Soft, non-tender. No signs of distention. No rebound no guarding, and no masses palpated. Bowel sounds are normal. EXTREMITIES: FROM in all major joints, no edema, no cyanosis or clubbing. NEURO: Alert and oriented x 3. No acute neurological deficits. Speech is normal and follows commands. SKIN: Dry and warm Triage Information Reviewed: Yes Vital Signs On Initial Exam: Initial Vitals Temp Pulse Resp BP Pulse Ox 97.5 F 58 22 134/77 98 11/28/17 12:49 11/28/17 12:49 11/28/17 12:49 11/28/17 12:49 11/28/17 12:49 Vital Signs Reviewed: Yes Diagnostics - Vital Signs Vital Signs Temp Pulse Resp BP Pulse Ox 11/28/17 12:49 97.5 F 58 22 134/77 98 - Laboratory Lab Results: Lab Results 11/28/17 11/28/17 11/28/17 Range/Units 13:00 13:00 13:00 WBC (3.5-10.8) 10^3/ul RBC (4.0-5.4) 10^6/ul Hgb (12.0-16.0) g/dl Hct (35-47) % MCV (80-97) fL MCH (27-31) pg MCHC (31-36) g/dl RDW (10.5-15) % Plt Count (150-450) 10^3/ul MPV (7.4-10.4) um3 Neut % (Auto) (38-83) % Lymph % (Auto) (25-47) % [place] % (Auto) (0-7) % Eos % (Auto) (0-6) % Baso % (Auto) (0-2) % Absolute Neuts (auto) (1.5-7.7) 10^3/ul Absolute Lymphs (auto) (1.0-4.8) 10^3/ul Absolute Monos (auto) (0-0.8) 10^3/ul Absolute Eos (auto) (0-0.6) 10^3/ul Absolute Basos (auto) (0-0.2) 10^3/ul Absolute Nucleated RBC 10^3/ul Nucleated RBC % INR (Anticoag Therapy) 1.21 H (0.77-1.02) APTT 40.0 H (26.0-36.3) seconds D-Dimer, Quantitative 295 H (Less Than 230) ng/mL Sodium 134 (133-145) mmol/L Potassium 4.6 (3.5-5.0) mmol/L Chloride 100 L (101-111) mmol/L Carbon Dioxide 26 (22-32) mmol/L Anion Gap 8 (2-11) mmol/L BUN 21 (6-24) mg/dL Creatinine 1.67 H (0.51-0.95) mg/dL Est GFR ( Amer) 39.8 (>60) Est GFR (Non-Af Amer) 31.0 (>60) BUN/Creatinine Ratio 12.6 (8-20) Glucose 326 H (70-100) mg/dL Lactic Acid (0.5-2.0) mmol/L Calcium 9.5 (8.6-10.3) mg/dL Magnesium 2.2 (1.9-2.7) mg/dL Total Bilirubin 0.80 (0.2-1.0) mg/dL AST 14 (13-39) U/L ALT 10 (7-52) U/L Alkaline Phosphatase 113 H (34-104) U/L Total Creatine Kinase 71 (10-223) U/L CK-MB (CK-2) 3.9 (0.6-6.3) ng/mL Myoglobin 36.9 (14.3-65.8) ng/mL Troponin I 0.01 (<0.04) ng/mL B-Natriuretic Peptide 681 H ( - 100) pg/mL Total Protein 7.5 (6.4-8.9) g/dL Albumin 3.8 (3.2-5.2) g/dL Globulin 3.7 (2-4) g/dL Albumin/Globulin Ratio 1.0 (1-3) TSH 5.54 (0.34-5.60) mcIU/mL Urine Color Urine Appearance Urine pH (5-9) Ur Specific [place] (1.010-1.030) Urine Protein (Negative) Urine Ketones (Negative) Urine Blood (Negative) Urine Nitrate (Negative) Urine Bilirubin (Negative) Urine Urobilinogen (Negative) Ur Leukocyte Esterase (Negative) Urine Glucose (Negative) 11/28/17 11/28/17 11/28/17 Range/Units 13:00 13:00 13:40 WBC 10.0 (3.5-10.8) 10^3/ul RBC 4.97 (4.0-5.4) 10^6/ul Hgb 12.3 (12.0-16.0) g/dl Hct 39 (35-47) % MCV 79 L (80-97) fL MCH 25 L (27-31) pg MCHC 31 (31-36) g/dl RDW 18 H (10.5-15) % Plt Count 275 (150-450) 10^3/ul MPV 9 (7.4-10.4) um3 Neut % (Auto) 78.4 (38-83) % Lymph % (Auto) 14.5 L (25-47) % [place] % (Auto) 5.5 (0-7) % Eos % (Auto) 0.9 (0-6) % Baso % (Auto) 0.7 (0-2) % Absolute Neuts (auto) 7.8 H (1.5-7.7) 10^3/ul Absolute Lymphs (auto) 1.5 (1.0-4.8) 10^3/ul Absolute Monos (auto) 0.5 (0-0.8) 10^3/ul Absolute Eos (auto) 0.1 (0-0.6) 10^3/ul Absolute Basos (auto) 0.1 (0-0.2) 10^3/ul Absolute Nucleated RBC 0 10^3/ul Nucleated RBC % 0.1 INR (Anticoag Therapy) (0.77-1.02) APTT (26.0-36.3) seconds D-Dimer, Quantitative (Less Than 230) ng/mL Sodium (133-145) mmol/L Potassium (3.5-5.0) mmol/L Chloride (101-111) mmol/L Carbon Dioxide (22-32) mmol/L Anion Gap (2-11) mmol/L BUN (6-24) mg/dL Creatinine (0.51-0.95) mg/dL Est GFR ( Amer) (>60) Est GFR (Non-Af Amer) (>60) BUN/Creatinine Ratio (8-20) Glucose (70-100) mg/dL Lactic Acid 2.6 H* (0.5-2.0) mmol/L Calcium (8.6-10.3) mg/dL Magnesium (1.9-2.7) mg/dL Total Bilirubin (0.2-1.0) mg/dL AST (13-39) U/L ALT (7-52) U/L Alkaline Phosphatase (34-104) U/L Total Creatine Kinase (10-223) U/L CK-MB (CK-2) (0.6-6.3) ng/mL Myoglobin (14.3-65.8) ng/mL Troponin I (<0.04) ng/mL B-Natriuretic Peptide ( - 100) pg/mL Total Protein (6.4-8.9) g/dL Albumin (3.2-5.2) g/dL Globulin (2-4) g/dL Albumin/Globulin Ratio (1-3) TSH (0.34-5.60) mcIU/mL Urine Color Straw Urine Appearance Clear Urine pH 6.0 (5-9) Ur Specific [place] 1.006 L (1.010-1.030) Urine Protein Negative (Negative) Urine Ketones Negative (Negative) Urine Blood Negative (Negative) Urine Nitrate Negative (Negative) Urine Bilirubin Negative (Negative) Urine Urobilinogen Negative (Negative) Ur Leukocyte Esterase Negative (Negative) Urine Glucose Negative (Negative) 11/28/17 Range/Units 15:25 WBC (3.5-10.8) 10^3/ul RBC (4.0-5.4) 10^6/ul Hgb (12.0-16.0) g/dl Hct (35-47) % MCV (80-97) fL MCH (27-31) pg MCHC (31-36) g/dl RDW (10.5-15) % Plt Count (150-450) 10^3/ul MPV (7.4-10.4) um3 Neut % (Auto) (38-83) % Lymph % (Auto) (25-47) % [place] % (Auto) (0-7) % Eos % (Auto) (0-6) % Baso % (Auto) (0-2) % Absolute Neuts (auto) (1.5-7.7) 10^3/ul Absolute Lymphs (auto) (1.0-4.8) 10^3/ul Absolute Monos (auto) (0-0.8) 10^3/ul Absolute Eos (auto) (0-0.6) 10^3/ul Absolute Basos (auto) (0-0.2) 10^3/ul Absolute Nucleated RBC 10^3/ul Nucleated RBC % INR (Anticoag Therapy) (0.77-1.02) APTT (26.0-36.3) seconds D-Dimer, Quantitative (Less Than 230) ng/mL Sodium (133-145) mmol/L Potassium (3.5-5.0) mmol/L Chloride (101-111) mmol/L Carbon Dioxide (22-32) mmol/L Anion Gap (2-11) mmol/L BUN (6-24) mg/dL Creatinine (0.51-0.95) mg/dL Est GFR ( Amer) (>60) Est GFR (Non-Af Amer) (>60) BUN/Creatinine Ratio (8-20) Glucose (70-100) mg/dL Lactic Acid (0.5-2.0) mmol/L Calcium (8.6-10.3) mg/dL Magnesium (1.9-2.7) mg/dL Total Bilirubin (0.2-1.0) mg/dL AST (13-39) U/L ALT (7-52) U/L Alkaline Phosphatase (34-104) U/L Total Creatine Kinase (10-223) U/L CK-MB (CK-2) (0.6-6.3) ng/mL Myoglobin (14.3-65.8) ng/mL Troponin I 0.01 (<0.04) ng/mL B-Natriuretic Peptide ( - 100) pg/mL Total Protein (6.4-8.9) g/dL Albumin (3.2-5.2) g/dL Globulin (2-4) g/dL Albumin/Globulin Ratio (1-3) TSH (0.34-5.60) mcIU/mL Urine Color Urine Appearance Urine pH (5-9) Ur Specific [place] (1.010-1.030) Urine Protein (Negative) Urine Ketones (Negative) Urine Blood (Negative) Urine Nitrate (Negative) Urine Bilirubin (Negative) Urine Urobilinogen (Negative) Ur Leukocyte Esterase (Negative) Urine Glucose (Negative) Result Diagrams: 11/28/17 13:00 11/28/17 13:00 Lab Statement: Any lab studies that have been ordered have been reviewed, and results considered in the medical decision making process. - Radiology CXR Radiology Interpretation Completed By: Radiologist - no active cardiopulmonary disease ED physician has reviewed this radiology report. - EKG 1218 Cardiac Rate: NL EKG Rhythm: Sinus Rhythm - 77BPM EKG Interpretation: AV paced rhythm EKG Comparison: No Significant Change - similar to 10-12-17 Course/Dx - Course Assessment/Plan: An EKG reveals AV paced rhythm at 77 BPM at 1218 similar to . CXR reveals, per radiologist, no active cardiopulmonary disease. Test results with no significant abnormalities except for creatinine of 1.67, glucose 326, and lactic 2.6. UA negative for UTI. In the ED course the patient was given lovenox. Pt has history of multiple PEs and has failed on multiple blood thinners, xarelto, eliquis, and pradaxa. I discussed the case with Dr. Gallagher and he suggested to place the patient on lovenox and admitted her. After she has been admitted he will consult with patient. I ordered a VQ scan that is not available today. The patient is hemodynamically stable. At this point I discussed the case with dr. Durant who accepts the patient for admission. - Diagnoses Differential Diagnosis/HQI/PQRI: Positive: Asthma, Bronchitis, CHF, Pneumonia Provider Diagnoses: Pulmonary embolism - Physician Notifications Discussed Care of Patient With: Sadi Reid Time Discussed With Above Provider: 13:10 Instructed by Provider To: Other - We discussed patient care with Dr. Reid and they recommended to lovenox and admitted her to hospitalist. 15:05 We discussed patient care with Dr. Durant and they have accepted the patient for admission. - Critical Care Time Critical Care Time: 75-104 min Discharge - Discharge Plan Condition: Fair Disposition: ADMITTED TO [facility] documentation as recorded by the Brad hobbs Gabriel accurately reflects the service I personally performed and the decisions made by me, Filemon Gilbert MD.
[2017-11-28 21:00] LABS: Urine Appearance Clear; Urine Blood 1+ (Negative); Urine Color Yellow; Urine Ketones Negative (Negative); Urine Protein 1+(30 mg/dL) (Negative); Urine Specific Gravity 1.014 (1.010-1.030); Urine Urobilinogen Negative (Negative)
[2017-11-28] MEDS: Insulin GLARGINE(*) 1 UNITS UNIT SUBCUT SCH (21:13)
[2017-11-28] MEDS: Metoprolol Succinate XL TAB* 100 MG PO SCH (21:13)
--- NOTE | 2017-11-28 22:41 | HP ---
CC: Dr. Carson * HISTORY AND PHYSICAL: DATE OF ADMISSION: 11/28/17 PRIMARY CARE PROVIDER: Dr. Carson. CONSULTING ONCOLOGIST/MANAGER ORACLE: Dr. Reid. ATTENDING PHYSICIAN WHILE IN THE HOSPITAL: Dr. Jeri Durant * (report dictated by Dejuan Orzoco NP). CHIEF COMPLAINT: 1. Chest pain. 2. Shortness of breath. HISTORY OF PRESENT ILLNESS: Mrs. Alcantar is a 62-year-old female, who carries a history of recurrent DVT and PE and has failed Eliquis in the past. She comes in to the ED today stating around 1400 yesterday, she started having sudden onset of left-sided chest pain in her left ribcage area, worse with taking a deep breath. She says that she was feeling short of breath. She also said that this pain felt similar to her previous pulmonary emboli. She says the pain has been constant. She denied having any orthopnea. No weight gain. No fevers or chills. No recent trauma. No recent surgeries. No recent long trips or travel. She denied having any calf pain or leg pain or leg swelling. She says her breathing was not getting any better. She drove herself into the hospital today because she was concerned that she would have a recurrent PE or possibly another DVT. She denies having any fevers, chills. No nausea. No abdominal discomfort, but says the pain is described as sharp, stabbing pain, mostly on that left side that just was not getting any better. She came in to the ED, she was evaluated. She does not appear to be hypoxic, but given her history and unfortunately she is allergic to CT DYE, there is concern that she could have recurrent PE. We were asked to evaluate for admission due to the chest pain. PAST MEDICAL HISTORY: Significant for: 1. DVT and PE. 2. She has also had a history of cardiomyopathy with EF less than 20%. 3. She has a history of CAD. 4. Diabetes. 5. Hyperlipidemia. 6. Obesity. 7. She has a history of LA. 8. She has a history of ANNE, currently not wearing her CPAP. 9. History of AFib. 10. History of COPD. PAST SURGICAL HISTORY: 1. She has had an ICD and pacemaker placement. 2. She has had an appendectomy. 3. She has had . 4. She has had heart catheterization with 1 stent. 5. She has had tonsillectomy. HOME MEDICATIONS: Include: 1. Meclizine 25 mg p.o. t.i.d. as needed. 2. Magnesium oxide 400 mg daily. 3. Lantus 35 units subcu daily at bedtime. 4. Glimepiride 4 mg p.o. b.i.d. 5. Lasix 40 mg daily. 6. Pradaxa 150 mg p.o. b.i.d. 7. Aspirin 81 mg daily. 8. Tylenol No. 3 one tablet at bedtime as needed. 9. Aldactone 50 mg p.o. daily. 10. Crestor 40 mg daily. 11. Nitro 0.4 mg sublingual q.5 minutes x3 p.r.n. chest pain. 12. Toprol-XL 100 mg p.o. b.i.d. ALLERGIES TO MEDICATIONS: Multiple allergies include METFORMIN, JANUVIA, TETRACYCLINE, ZOFRAN, LATEX, DEMEROL, DARVON, BEE VENOM, CEPHALOSPORIN, IV DYE, LOSARTAN, NIASPAN, NSAIDS, PENICILLIN G, PENICILLIN V, RAMIPRIL, ATORVASTATIN, PERTUSSIS VACCINE, DIPHTHERIA TOXOID VACCINE, TETANUS VACCINE, and she is also allergic to IV DYE. FAMILY HISTORY: Mother had a history of CAD and alcoholism. Father had a history of unknown type of cancer. SOCIAL HISTORY: She is a former smoker. She rarely drinks alcohol. Surrogate decision maker is her daughter, Kyung. REVIEW OF SYSTEMS: There is no documented fever. She denied having any significant weight change. There was no double vision. There is no ear discharge. She denies having any rhinorrhea. There is no sore throat. No thyroid enlargement. There is chest pain from my HPI. There is shortness of breath particularly with exertion. There is no abdominal pain. There is no nausea. No vomiting. There is no dysuria. There is no frequency. There was no seizure. No loss of consciousness. No pruritus and no skin ulcerations. Review of 14 systems was completed, all others are negative. PHYSICAL EXAMINATION GENERAL: At this time, Mrs. Alcantar is a 62-year-old female patient. She is sitting in the ED stretcher. She does not appear to be in any acute distress. VITAL SIGNS: Blood pressure 115/79 with a pulse of 67, respirations 16, O2 sat was 99%, heart rate was 67, respirations were 19, O2 sat 99%, temperature was 97.5. HEENT: Head: Atraumatic, normocephalic. Eyes: EOMs intact. Sclerae anicteric, not pale. Throat: Oral mucosa appears to be moist. No oropharyngeal erythema. NECK: Supple. LUNGS: Clear to auscultation. No wheezes, rales or rhonchi. HEART: Sounds S1, S2. Regular rate and rhythm. No murmurs, rubs or gallops. ABDOMEN: Soft, it was flat, nontender. Bowel sounds present. EXTREMITIES: Pulses were 2+ throughout. She had no peripheral edema. NEUROLOGIC: The patient is awake. She is alert. She is oriented x3. She had no gross focal deficits. SKIN: The skin was grossly intact. DIAGNOSTIC STUDIES/LAB DATA: WBC of 10.0, RBC of 4.97, hemoglobin of 12.3, hematocrit 39, platelet count of 275, INR 1.21, PTT of 40. Sodium was 134, potassium of 4.6, chloride of 100, bicarb 26, BUN 21, creatinine 1.67, baseline creatinine is 1.2, glucose was 326, lactic 2.6, calcium 9.5, mag 2.2, total bili 0.8, AST 14, ALT 10, alk phos 133, CK 71, CK-MB 3.9, myoglobin 36.9, troponin 0.01, BNP of 681, albumin of 3.8, TSH of 5.54. Urine showed a low specific gravity. Chest x-ray showed no active cardiopulmonary disease. EKG shows atrial sinus ventricular paced rhythm, rate of 77, which was reviewed to the previous EKG, it is similar. Old medical records reviewed. ASSESSMENT AND PLAN: Mrs. Alcantar is a 62-year-old female patient with known history of recurrent pulmonary embolism since failed Eliquis in the past, possibly Pradaxa, now presenting in to the ED today with complaints of chest discomfort similar to her previous pulmonary emboli. We were asked to evaluate for admission. She will be admitted under observation status for: 1. Chest pain. Again at this point, I do not feel like that this is cardiac in nature. The pain has been going on since 2 o'clock yesterday. Her first troponin was negative. I am going to get 2 more sets to be safe. I am going to start out with a v/Q scan just to make sure that there is no recurrence of pulmonary embolism. In the meantime, I am going to go ahead and get her on Lovenox. I have consulted with Dr. Reid. If there is new pulmonary embolism, then obviously we will need to either switched to Coumadin or Lovenox. I would like to if at all possible if her creatinine improves tomorrow with some IV hydration premedicate her and try to do a CTA of the chest as she has tolerated this in the past; however, with the creatinine function, I do not want to give the dye load unless her creatinine improves. For the time being now, she will be placed on telemetry. She is already on aspirin, beta-kem, and statin. We will continue these as well. 2. History of deep venous thrombosis, pulmonary embolism. Again, we are going to reevaluate with a V/Q scan. I am also getting lower extremity Dopplers and possibly CTA of the chest tomorrow if her creatinine will allow. She will need to be premedicated. 3. History of cardiomyopathy. I am going to just give her 1 L of fluids. We will diurese her as we are able to. We will hold her Lasix, and spironolactone to try to improve her creatinine function. We will be careful with the IV fluids and again we will follow her closely. 4. Coronary artery disease. She will be on aspirin, statin and beta-kem therapy. 5. Diabetes. Lispro sliding scale has been ordered. 6. Hyperlipidemia. Continue her Crestor. 7. History of chronic obstructive pulmonary disease. I will order p.r.n. albuterol should she need it. 8. Atrial fibrillation. She appears to be in a sinus paced rhythm at this point. We will just continue Lovenox at this point. She is rate controlled. 9. Obstructive sleep apnea. She says she is not wearing her mask currently. If she is interested, we can always reorder this. 10. Code status. Full code. 11. Fluids, electrolytes and nutrition. She can have a consistent carb diet. TIME SPENT: Time spent on admission was approximately 60 minutes, greater than half the time spent [id number] with the patient obtaining my history and physical; other half time spent going over the plan of care with the patient, implementing plan of care. I did discuss the plan of care with my attending, Dr. Durant, she is in agreement. DEJUAN OROZCO NP [id number]/[facility] #: [id number] [place]
[2017-11-28] MEDS: Enoxaparin(*) 150 MG/ML 1 ML SYRINGE SUBCUT SCH (23:22)
[2017-11-29] MEDS: Morphine INJ* 2 MG/ML 1 ML CARPUJECT IV PRN ×2 (04:21→08:43)
[2017-11-29 05:47] LABS: ABS Basophils 0.1 10^3/ul (0-0.2); ABS Eosinophils 0.1 10^3/ul (0-0.6); ABS Lymphocytes 2.3 10^3/ul (1.0-4.8); ABS Monocytes 0.7 10^3/ul (0-0.8); ABS Neutrophils 6.1 10^3/ul (1.5-7.7); ABS Nucleated RBC 0 10^3/ul; Eosinophil % 1.5 % (0-6); Hematocrit 38 % (35-47); Lymphocyte % 24.6 % (25-47); Mean Corpuscular HGB Conc 32 g/dl (31-36); Mean Corpuscular Hemoglobin 25 pg (27-31); Mean Corpuscular Volume 77 fL (80-97); Mean Platelet Volume 8 um3 (7.4-10.4); Nucleated Red Blood Cells % 0; Platelet Count 263 10^3/ul (150-450); Red Blood Count 4.84 10^6/ul (4.0-5.4); Red Cell Distribution Width 18 % (10.5-15); White Blood Count 9.3 10^3/ul (3.5-10.8)
[2017-11-29 05:57] LABS: INR 1.32 (0.77-1.02)
[2017-11-29 05:58] LABS: EGFR Non-African American 37.4 (>60)
[2017-11-29] MEDS: Magnesium Oxide TAB* 400 MG PO SCH (09:21)
[2017-11-29] MEDS: Insulin LISPRO* 1 UNITS UNIT SUBCUT SCH ×3 (09:21→17:44)
[2017-11-29] MEDS: Metoprolol Succinate XL TAB* 100 MG PO SCH ×2 (09:21→21:05)
[2017-11-29] MEDS: Aspirin EC Low Dose* 81 MG TAB.EC PO SCH (09:21)
[2017-11-29] MEDS: Enoxaparin(*) 150 MG/ML 1 ML SYRINGE SUBCUT SCH (10:52)
--- NOTE | 2017-11-29 11:07 | PN ---
Progress Note - Progress Note Date of Service: 11/29/17 SOAP: Subjective: []Thrombotic History 1. February 2016, BL tibial DVT, V/Q indeterminate, Ddimer > 1050 - Eliquis, 08/2016 reduced to 2.5 mg bid 2. 04/2017 L leg pain. US LLE stable and Ddimer 273 - Eliquis increased to 5 mg po bid 3. 06/2017 PPM replacement, Eliquis presumably held. - post procedure w/ left arm edema US LUE + DVT - placed back on Eliquis 4. 09/2017 Chest pain and SOB - V/Q scan from 2015, possible increase in peripheral mismatch - CTA 09/2017, 02/2016, 06/2015 all essentially stable, question of peripheral pulmonary arterial disease. - D dimer 495 - Changed to Pradaxa Presents with a sharp, twisting right sided chest pain, worse with deep breath and movement including moving head. Very similar to 09/2017. Acetaminophen (Tylenol Tab*) 650 mg PO Q4H PRN PRN Reason: FEVER/PAIN Last Admin: 11/28/17 23:18 Dose: 650 mg Albuterol (Ventolin 2.5 Mg/3 Ml Neb.Amanda*) 2.5 mg INH Q2H PRN PRN Reason: SOB/WHEEZING Aspirin (Aspirin Ec Low Dose*) 81 mg PO QAM PENDING SALE TO [facility] Last Admin: 11/29/17 09:21 Dose: 81 mg Dextrose (D50w Syringe 50 Ml*) 12.5 gm IV PUSH .FOR FS < 60 - SS PRN PRN Reason: FS < 60 Enoxaparin Sodium (Lovenox(*)) 110 mg SUBCUT Q12HR@1100,2300 [facility] TO [facility] Last Admin: 11/29/17 10:52 Dose: 110 mg Insulin Glargine (Lantus(*)) 35 units SUBCUT BEDTIME [facility] TO [facility] Last Admin: 11/28/17 21:13 Dose: 35 units Insulin Human Lispro (Humalog*) 0 units SUBCUT AC [facility] TO [facility] PRN Reason: Protocol Last Admin: 11/29/17 09:21 Dose: 2 units Magnesium Oxide (Magox 400 Tab*) 400 mg PO QAM [facility] TO [facility] Last Admin: 11/29/17 09:21 Dose: 400 mg Meclizine HCl (Antivert Tab*) 25 mg PO TID PRN PRN Reason: DIZZINESS Metoprolol Succinate (Toprol Xl Tab*) 100 mg PO BID [facility] TO [facility] Last Admin: 11/29/17 09:21 Dose: 100 mg Morphine Sulfate (Morphine Inj (Syringe)*) 2 mg IV Q4H PRN PRN Reason: PAIN - MILD Last Admin: 11/29/17 08:43 Dose: 2 mg Rosuvastatin Calcium (Crestor (Nf)) 40 mg PO QPM [facility] TO [facility] Last Admin: 11/28/17 18:16 Dose: 40 mg Objective: [] Vital Signs Temp Pulse Resp BP Pulse Ox 97.5 F 66 16 118/58 96 11/29/17 07:16 11/29/17 08:35 11/29/17 08:43 11/29/17 07:16 11/29/17 08:35 HEENT - No LAD, no oral lesions CTA, no wheezing + palpable tenderness right chest. RRR S1S2 No asymmetric edema Obese, otherwise non specific Neuro AAOx3 Assessment: []62 year old with history of BL LE DVT in 02/2016 and L UE DVT 06/2017 when taken briefly off anticoagulation. She is very difficult to image and the evidence of PE is unclear. I am not sure she has progressed on direct oral thrombin and Xa inhibitors. On exam today her symptoms are producible with palpation raising question of chest wall pain, inflammation. Plan: []1. Check V/Q scan and given low D dimer pre test portability is low, if stable continuation on Pradaxa or change to Coumadin are both reasonable. 2. Based on recurrent extremity DVT, she needs assisted anticoagulation without regard to PE history. 3. Possible inflammatory pain and + DENIZ - Check ESR, RF, re-check DENIZ - Check ACL and anti-beta2 GP 1 antibodies time with patient patient and chart, reviewing radiology 50 min
[2017-11-29] MEDS: Acetaminophen TAB* 325 MG PO PRN (11:32)
--- NOTE | 2017-11-29 13:17 | RAD ---
INDICATION: Shortness of breath and chest pain. Comparison: Comparison is made with a prior chest x-ray study from November 28, 2017. Correlation is also made with a prior lung perfusion ventilation scan from October 05, 2017. Technique: The patient was given an intravenous injection of 10.7 mCi of xenon-133 via a rebreathing mask. The lungs were imaged in both the anterior and posterior projections. Subsequently, the patient received 6.5 mCi of technetium 99 MAA intravenously and the lungs were imaged in 8 projections. FINDINGS: There are multiple small perfusion defects present within both lungs. The majority of these appear similar to the prior lung perfusion ventilation scan although there are couple new defects one posteriorly at the left lung base and one in the left upper lobe. No definite corresponding ventilation abnormality seen although the ventilation images are limited. The prior chest x-ray demonstrates clear lungs. IMPRESSION: INTERMEDIATE PROBABILITY FOR NEW PULMONARY EMBOLI.
[2017-11-29] MEDS: Ondansetron INJ* 2 MG/ML VIAL IV PRN (13:35)
[2017-11-29] MEDS ORDERED: oxyCODONE/Acetamin 5/325 MG* TAB PO PRN (17:05)
--- NOTE | 2017-11-29 17:40 | PN ---
Subjective Date of Service: 11/29/17 Interval History: C/o pain to left upper rib area, states that pain is similar to pain when she has PE's in the past. Patient denies chest pain or shortness of breath. Denies any abd pain, n/v/d. Family History: Unchanged from Admission Social History: Unchanged from Admission Past Medical History: Unchanged from Admission Objective Active Medications: Acetaminophen (Tylenol Tab*) 650 mg PO Q4H PRN PRN Reason: FEVER/PAIN Last Admin: 11/29/17 11:32 Dose: 650 mg Albuterol (Ventolin 2.5 Mg/3 Ml Neb.Amanda*) 2.5 mg INH Q2H PRN PRN Reason: SOB/WHEEZING Aspirin (Aspirin Ec Low Dose*) 81 mg PO QAM [facility] Last Admin: 11/29/17 09:21 Dose: 81 mg Dextrose (D50w Syringe 50 Ml*) 12.5 gm IV PUSH .FOR FS < 60 - SS PRN PRN Reason: FS < 60 Enoxaparin Sodium (Lovenox(*)) 110 mg SUBCUT Q12HR@1100,2300 [facility] Last Admin: 11/29/17 10:52 Dose: 110 mg Insulin Glargine (Lantus(*)) 35 units SUBCUT BEDTIME [facility] Last Admin: 11/28/17 21:13 Dose: 35 units Insulin Human Lispro (Humalog*) 0 units SUBCUT AC [facility] PRN Reason: Protocol Last Admin: 11/29/17 13:29 Dose: 2 units Magnesium Oxide (Magox 400 Tab*) [facility] Last Admin: 11/29/17 09:21 Dose: 400 mg Meclizine HCl (Antivert Tab*) 25 mg PO TID PRN PRN Reason: DIZZINESS Metoprolol Succinate (Toprol Xl Tab*) 100 mg PO BID [facility] Last Admin: 11/29/17 09:21 Dose: 100 mg Morphine Sulfate (Morphine Inj (Syringe)*) 2 mg IV Q4H PRN PRN Reason: PAIN - MILD Last Admin: 11/29/17 08:43 Dose: 2 mg Ondansetron HCl (Zofran Inj*) 4 mg IV Q4H PRN PRN Reason: NAUSEA Last Admin: 11/29/17 13:35 Dose: 4 mg Oxycodone/Acetaminophen (Percocet 5/325 Tab*) 1 tab PO Q6H PRN PRN Reason: PAIN Rosuvastatin Calcium (Crestor (Nf)) 40 mg PO QPM [facility] Last Admin: 11/28/17 18:16 Dose: 40 mg Vital Signs - 8 hr 11/29/17 11/29/17 11/29/17 11:16 11:28 15:16 Temperature 97.5 F 97.2 F Pulse Rate 68 93 Respiratory 20 16 20 Rate Blood Pressure 105/70 99/52 (mmHg) O2 Sat by Pulse 97 96 Oximetry Oxygen Devices in Use Now: None Appearance: appears mildly uncomfortable sitting on the edge of the bed. Eyes: No Scleral Icterus Ears/Nose/Mouth/Throat: Clear Oropharnyx, Mucous Membranes Moist Neck: NL Appearance and Movements; NL JVP, Trachea Midline Respiratory: Symmetrical Chest Expansion and Respiratory Effort, Clear to Auscultation, - - diminished t/o bilat Cardiovascular: NL Sounds; No Murmurs; No JVD Abdominal: NL Sounds; No Tenderness; No Distention Extremities: No Edema, No Clubbing, Cyanosis Skin: No Rash or Ulcers Neurological: Alert and Oriented x 3, NL Muscle Strength and Tone Nutrition: Taking PO's Result Diagrams: 11/29/17 05:26 11/29/17 05:26 Additional Lab and Data: Lab Results 11/28/17 11/28/17 11/28/17 Range/Units 13:00 13:00 13:00 WBC (3.5-10.8) 10^3/ul RBC (4.0-5.4) 10^6/ul Hgb (12.0-16.0) g/dl Hct (35-47) % MCV (80-97) fL MCH (27-31) pg MCHC (31-36) g/dl RDW (10.5-15) % Plt Count (150-450) 10^3/ul MPV (7.4-10.4) um3 Neut % (Auto) (38-83) % Lymph % (Auto) (25-47) % [place] % (Auto) (0-7) % Eos % (Auto) (0-6) % Baso % (Auto) (0-2) % Absolute Neuts (auto) (1.5-7.7) 10^3/ul Absolute Lymphs (auto) (1.0-4.8) 10^3/ul Absolute Monos (auto) (0-0.8) 10^3/ul Absolute Eos (auto) (0-0.6) 10^3/ul Absolute Basos (auto) (0-0.2) 10^3/ul Absolute Nucleated RBC 10^3/ul Nucleated RBC % INR (Anticoag Therapy) 1.21 H (0.77-1.02) APTT 40.0 H (26.0-36.3) seconds D-Dimer, Quantitative 295 H (Less Than 230) ng/mL Sodium 134 (133-145) mmol/L Potassium 4.6 (3.5-5.0) mmol/L Chloride 100 L (101-111) mmol/L Carbon Dioxide 26 (22-32) mmol/L Anion Gap 8 (2-11) mmol/L BUN 21 (6-24) mg/dL Creatinine 1.67 H (0.51-0.95) mg/dL Est GFR ( Amer) 39.8 (>60) Est GFR (Non-Af Amer) 31.0 (>60) BUN/Creatinine Ratio 12.6 (8-20) Glucose 326 H (70-100) mg/dL Lactic Acid (0.5-2.0) mmol/L Calcium 9.5 (8.6-10.3) mg/dL Magnesium 2.2 (1.9-2.7) mg/dL Total Bilirubin 0.80 (0.2-1.0) mg/dL AST 14 (13-39) U/L ALT 10 (7-52) U/L Alkaline Phosphatase 113 H (34-104) U/L Total Creatine Kinase 71 (10-223) U/L CK-MB (CK-2) 3.9 (0.6-6.3) ng/mL Myoglobin 36.9 (14.3-65.8) ng/mL Troponin I 0.01 (<0.04) ng/mL B-Natriuretic Peptide 681 H ( - 100) pg/mL Total Protein 7.5 (6.4-8.9) g/dL Albumin 3.8 (3.2-5.2) g/dL Globulin 3.7 (2-4) g/dL Albumin/Globulin Ratio 1.0 (1-3) TSH 5.54 (0.34-5.60) mcIU/mL Urine Color Urine Appearance Urine pH (5-9) Ur Specific [place] (1.010-1.030) Urine Protein (Negative) Urine Ketones (Negative) Urine Blood (Negative) Urine Nitrate (Negative) Urine Bilirubin (Negative) Urine Urobilinogen (Negative) Ur Leukocyte Esterase (Negative) Urine Glucose (Negative) 11/28/17 11/28/17 11/28/17 Range/Units 13:00 13:00 13:40 WBC 10.0 (3.5-10.8) 10^3/ul RBC 4.97 (4.0-5.4) 10^6/ul Hgb 12.3 (12.0-16.0) g/dl Hct 39 (35-47) % MCV 79 L (80-97) fL MCH 25 L (27-31) pg MCHC 31 (31-36) g/dl RDW 18 H (10.5-15) % Plt Count 275 (150-450) 10^3/ul MPV 9 (7.4-10.4) um3 Neut % (Auto) 78.4 (38-83) % Lymph % (Auto) 14.5 L (25-47) % Harrison % (Auto) 5.5 (0-7) % Eos % (Auto) 0.9 (0-6) % Baso % (Auto) 0.7 (0-2) % Absolute Neuts (auto) 7.8 H (1.5-7.7) 10^3/ul Absolute Lymphs (auto) 1.5 (1.0-4.8) 10^3/ul Absolute Monos (auto) 0.5 (0-0.8) 10^3/ul Absolute Eos (auto) 0.1 (0-0.6) 10^3/ul Absolute Basos (auto) 0.1 (0-0.2) 10^3/ul Absolute Nucleated RBC 0 10^3/ul Nucleated RBC % 0.1 INR (Anticoag Therapy) (0.77-1.02) APTT (26.0-36.3) seconds D-Dimer, Quantitative (Less Than 230) ng/mL Sodium (133-145) mmol/L Potassium (3.5-5.0) mmol/L Chloride (101-111) mmol/L Carbon Dioxide (22-32) mmol/L Anion Gap (2-11) mmol/L BUN (6-24) mg/dL Creatinine (0.51-0.95) mg/dL Est GFR ( Amer) (>60) Est GFR (Non-Af Amer) (>60) BUN/Creatinine Ratio (8-20) Glucose (70-100) mg/dL Lactic Acid 2.6 H* (0.5-2.0) mmol/L Calcium (8.6-10.3) mg/dL Magnesium (1.9-2.7) mg/dL Total Bilirubin (0.2-1.0) mg/dL AST (13-39) U/L ALT (7-52) U/L Alkaline Phosphatase (34-104) U/L Total Creatine Kinase (10-223) U/L CK-MB (CK-2) (0.6-6.3) ng/mL Myoglobin (14.3-65.8) ng/mL Troponin I (<0.04) ng/mL B-Natriuretic Peptide ( - 100) pg/mL Total Protein (6.4-8.9) g/dL Albumin (3.2-5.2) g/dL Globulin (2-4) g/dL Albumin/Globulin Ratio (1-3) TSH (0.34-5.60) mcIU/mL Urine Color Straw Urine Appearance Clear Urine pH 6.0 (5-9) Ur Specific [place] 1.006 L (1.010-1.030) Urine Protein Negative (Negative) Urine Ketones Negative (Negative) Urine Blood Negative (Negative) Urine Nitrate Negative (Negative) Urine Bilirubin Negative (Negative) Urine Urobilinogen Negative (Negative) Ur Leukocyte Esterase Negative (Negative) Urine Glucose Negative (Negative) 11/28/17 Range/Units 15:25 WBC (3.5-10.8) 10^3/ul RBC (4.0-5.4) 10^6/ul Hgb (12.0-16.0) g/dl Hct (35-47) % MCV (80-97) fL MCH (27-31) pg MCHC (31-36) g/dl RDW (10.5-15) % Plt Count (150-450) 10^3/ul MPV (7.4-10.4) um3 Neut % (Auto) (38-83) % Lymph % (Auto) (25-47) % Harrison % (Auto) (0-7) % Eos % (Auto) (0-6) % Baso % (Auto) (0-2) % Absolute Neuts (auto) (1.5-7.7) 10^3/ul Absolute Lymphs (auto) (1.0-4.8) 10^3/ul Absolute Monos (auto) (0-0.8) 10^3/ul Absolute Eos (auto) (0-0.6) 10^3/ul Absolute Basos (auto) (0-0.2) 10^3/ul Absolute Nucleated RBC 10^3/ul Nucleated RBC % INR (Anticoag Therapy) (0.77-1.02) APTT (26.0-36.3) seconds D-Dimer, Quantitative (Less Than 230) ng/mL Sodium (133-145) mmol/L Potassium (3.5-5.0) mmol/L Chloride (101-111) mmol/L Carbon Dioxide (22-32) mmol/L Anion Gap (2-11) mmol/L BUN (6-24) mg/dL Creatinine (0.51-0.95) mg/dL Est GFR ( Amer) (>60) Est GFR (Non-Af Amer) (>60) BUN/Creatinine Ratio (8-20) Glucose (70-100) mg/dL Lactic Acid (0.5-2.0) mmol/L Calcium (8.6-10.3) mg/dL Magnesium (1.9-2.7) mg/dL Total Bilirubin (0.2-1.0) mg/dL AST (13-39) U/L ALT (7-52) U/L Alkaline Phosphatase (34-104) U/L Total Creatine Kinase (10-223) U/L CK-MB (CK-2) (0.6-6.3) ng/mL Myoglobin (14.3-65.8) ng/mL Troponin I 0.01 (<0.04) ng/mL B-Natriuretic Peptide ( - 100) pg/mL Total Protein (6.4-8.9) g/dL Albumin (3.2-5.2) g/dL Globulin (2-4) g/dL Albumin/Globulin Ratio (1-3) TSH (0.34-5.60) mcIU/mL Urine Color Urine Appearance Urine pH (5-9) Ur Specific [place] (1.010-1.030) Urine Protein (Negative) Urine Ketones (Negative) Urine Blood (Negative) Urine Nitrate (Negative) Urine Bilirubin (Negative) Urine Urobilinogen (Negative) Ur Leukocyte Esterase (Negative) Urine Glucose (Negative) Assess/Plan/Problems-Billing Assessment: Ms. Alcantar is a 62 y.o female patient with a hx of DVT's in her lower ext and left upper ext. presented to the emergency room for shortness of breath and pain with deep breath; concerned for PE. - Patient Problems (1) Chest pain Current Visit: No Status: Acute Priority: High Onset Date: 10/14/14 Code (s): R07.9 - CHEST PAIN, UNSPECIFIED SNOMED Code(s): 42211204 Comment: - c/o Chest pain with deep breath, left rib area pain reproducible with palpation, and movement increases the pain, suspect this is musculoskeletal pain - Low probability for PE as Pt is on chronic pradaxa and not hypoxic, no tacycardia - Troponin 0.01 x3 (2) History of DVT (deep vein thrombosis) Current Visit: Yes Status: Acute Code(s): Z86.718 - PERSONAL HISTORY OF OTHER VENOUS THROMBOSIS AND EMBOLISM SNOMED Code(s): 091180211 Comment: ~ hx of DVT after pace maker placement. ~Currently on pradaxa at home ~ will restart and stop lovenox ~ VQ Scan intermediate for PE; discussed result with Dr. Galdamez~ Dr. Galdamez recommended continuing pradaxa and no further testing. (3) History of pulmonary embolism Current Visit: Yes Status: Acute Code(s): Z86.711 - PERSONAL HISTORY OF PULMONARY EMBOLISM SNOMED Code(s): 062831072 Comment: ~ VQ scan completed ~ intermediate for probability of PE (4) DVT prophylaxis Current Visit: No Status: Acute Priority: Medium Code(s): IUA2050 - SNOMED Code(s): 736871453 Comment: Stop Lovenox - restart Pradaxa (5) Diabetes mellitus Current Visit: No Status: Chronic Code(s): E11.9 - TYPE 2 DIABETES MELLITUS WITHOUT COMPLICATIONS SNOMED Code(s): 69041011 Comment: Blood sugar 134-148 Continue Lantus and Lispro sliding scale fingersticks AC (6) HLD (hyperlipidemia) Current Visit: No Status: Chronic Code(s): E78.5 - HYPERLIPIDEMIA, UNSPECIFIED SNOMED Code(s): 28798070 Comment: - Continue statin (7) HTN (hypertension) Current Visit: No Status: Chronic Code(s): I10 - ESSENTIAL (PRIMARY) HYPERTENSION SNOMED Code(s): 14479628 Comment: SBP 99-118 - Controlled - Continue home meds (8) Full code status Current Visit: No Status: Acute Priority: Medium Code(s): Z78.9 - OTHER SPECIFIED HEALTH STATUS SNOMED Code(s): 471562293
[2017-11-29] MEDS: CMC:Rosuvastatin (NF) 20 MG TAB PO SCH (17:46)
[2017-11-29] MEDS ORDERED: Dabigatran CAP(NF) 150 MG CAP PO SCH (21:00)
[2017-11-29] MEDS: Insulin GLARGINE(*) 1 UNITS UNIT SUBCUT SCH (21:05)
[2017-11-29] MEDS: CMCS Dabigatran CAP(NF) 150 MG CAP PO SCH (21:06)
[2017-11-30] MEDS: Morphine INJ* 2 MG/ML 1 ML CARPUJECT IV PRN (00:23)
[2017-11-30] MEDS: Ondansetron INJ* 2 MG/ML VIAL IV PRN (05:03)
[2017-11-30] MEDS: Metoprolol Succinate XL TAB* 100 MG PO SCH (08:13)
[2017-11-30] MEDS: Insulin LISPRO* 1 UNITS UNIT SUBCUT SCH ×2 (08:13→12:49)
[2017-11-30] MEDS: CMCS Dabigatran CAP(NF) 150 MG CAP PO SCH (08:13)
[2017-11-30] MEDS: Aspirin EC Low Dose* 81 MG TAB.EC PO SCH (08:13)
[2017-11-30] MEDS: Magnesium Oxide TAB* 400 MG PO SCH (08:13)
[2017-11-30] MEDS ORDERED: Perflutren Lipid Microsphere* 3 ML VIAL ONE (11:10)
--- NOTE | 2017-11-30 12:40 | ECHO ---
Patient: OLMAN MCMAHAN Rec#: [id number] : 1955 Date: 11/30/2017 Age: 62y Height: 172.72 cm / 68.0 in Weight: 109.77 kg / 241.9 lbs Sex: F BSA: 2.22 Room#: [facility] Admit Date#: 11/28/2017 Type: Inpatient Referring: Norah Myers Reading: Cody Thompson MD Rn Coronary Care Unit: Barbara Miranda RDCS CC: Gia Carson MD CC: Hermann Valera Transthoracic Echocardiogram Indication: Chest pain, shortness of breath BP: 127/71 HR: 104 Rhythm: Paced Findings History: CAD with MT s/p PCI, cardiomyopathy, PAF, HTN, COPD, ANNE, s/p pacer/ICD, PE, DVT, DM, HLD. Technical Comments: The study is technically difficult. The study is technically limited due to poor apical windows. The study is technically limited due to patient body habitus. Completed at 1200. Left Ventricle: The left ventricular size is moderate to severely dilated. There is no left ventricular hypertrophy. There is global hypokinesis of the left ventricle with minor regional variation.The only area showing any degree of wall motion is the proximal low posterolateral wall. There is severely decreased left ventricular systolic function. The estimated ejection fraction is less than 20%. There is abnormal ventricular septal wall motion consistent with right ventricular pacemaker. The left ventricular diastolic filling pattern is consistent with elevated mean left atrial pressure. Left Atrium: The left atrium is moderately dilated. Right Ventricle: The right ventricle is moderately dilated. The right ventricular global systolic function is mildly to moderately reduced. A pacemaker wire is visualized in the right ventricle. Right Atrium: The right atrial cavity size is severely dilated. A pacemaker wire is visualized in the right atrium. Aortic Valve: The aortic valve is trileaflet. The aortic valve leaflets are mildly thickened. There is a trace of aortic regurgitation. There is no evidence of aortic stenosis. Mitral Valve: The mitral valve leaflets are mildly thickened. There is moderate mitral regurgitation. There is no evidence of mitral stenosis. Tricuspid Valve: The tricuspid valve leaflets are normal. There is moderate tricuspid regurgitation. The right ventricular systolic pressure is estimated at 54 mmHg. There is evidence of moderate pulmonary hypertension. There is no tricuspid stenosis. Pulmonic Valve: The pulmonic valve appears normal. There is mild to moderate pulmonic regurgitation. There is no pulmonic stenosis. Pericardium: There is no significant pericardial effusion. A pericardial fat pad is visualized. Aorta: There is no dilatation of the ascending aorta. There is no dilatation of the aortic arch. The aortic root is normal in size. Pulmonary Artery: The main pulmonary artery appears normal. Venous: The inferior vena cava is dilated. There is an approximate 50% respiratory change in the inferior vena cava dimension. Contrast: Definity was used to optimize study. 5 mL of diluted Definity was utilized. Intravenous contrast was used to enhance endocardial border definition. Conclusions The study is technically difficult. The study is technically limited due to poor apical windows. The study is technically limited due to patient body habitus. Completed at 1200. The left ventricular size is moderate to severely dilated. There is severely decreased left ventricular systolic function. The estimated ejection fraction is less than 20%. The left ventricular diastolic filling pattern is consistent with elevated mean left atrial pressure. There is abnormal ventricular septal wall motion consistent with right ventricular pacemaker. The left atrium is moderately dilated. There is moderate mitral regurgitation. There is moderate tricuspid regurgitation. There is evidence of moderate pulmonary hypertension. There is mild to moderate pulmonic regurgitation. Compared to report of study from 02/27/2016 the overall LV systolic function is worse (was 20-25%) Measurements Name Value Normal Range RVIDd (AP) 2D 3.5 cm (0.9 - 2.6) RVDdMajor (2D) 5.2 cm (2.2 - 4.4) RAd ISD 4CH 6.4 cm (3.4 - 4.9) RA (A4C)W 6.1 cm (2.9 - 4.6) IVSd (2D) 1 cm (0.6 - 1) LVPWd (2D) 0.9 cm (0.6 - 1) LVIDd (2D) 6.9 cm (3.6 - 5.4) LVIDs (2D) 6.1 cm - LV FS (2D) 12 % (25 - 45) Aortic Annulus 1.7 cm (1.4 - 2.6) Ao root diameter (2D) 2.9 cm (2.1 - 3.5) Ascending Ao 2.8 cm (2.1 - 3.4) Aortic arch 2.3 cm (1.8 - 3.4) LA dimension (AP) 2D 4.1 cm (2.3 - 3.8) LAd ISD 4CH 6.5 cm (2.9 - 5.3) LA ISD 4CH W 5 cm (2.5 - 4.5) Name Value Normal Range LA ESV SP 4CH (A/L) 71 ml - LA ESV SP 2CH (A/L) 77 ml - LA ESV BP (A/L) 77 ml - LA ESV BP (A/L) index 35 ml/m2 - LA ESV SP 4CH (MOD) 68 ml - LA ESV SP 2CH (MOD) 73 ml - Name Value Normal Range MV E-wave Vmax 0.77 m/sec - MV deceleration time 197.3 msec - MV A-wave Vmax 0.47 m/sec - MV E:A ratio 1.62 ratio - LV septal e' Vmax 0.02 m/sec - LV lateral e' Vmax 0.07 m/sec - LV E:e' septal ratio 38.5 ratio - LV E:e' lateral ratio 11 ratio - Name Value Normal Range AV Vmax 1.1 m/sec - AV VTI 20.91 cm - AV peak gradient 4.66 mmHg - AV mean gradient 2.08 mmHg - LVOT Vmax 0.46 m/sec - LVOT VTI 7 cm - LVOT peak gradient 0.85 mmHg - LVOT mean gradient 0.35 mmHg - HEMA Vmax 0.5 m/sec - Name Value Normal Range MR flow (PISA) 41.5 ml/sec - MR PISA radius 0.5 cm - MR alias Vmax 0.32 cm/sec - Name Value Normal Range TR Vmax 3.4 m/sec - TR peak gradient 46 mmHg - RAP 8 mmHg - RVSP 54 mmHg - IVC diameter 2.11 cm - Name Value Normal Range PV Vmax 0.54 m/sec - PV peak gradient 1.14 mmHg - ME end-diastolic Vmax 1.6 m/sec -
[2017-11-30] MEDS ORDERED: Polyethylene Glycol 3350* 17 GM PACKET PO PRN (13:33)
[2017-11-30] MEDS ORDERED: Spironolactone TAB* 25 MG PO SCH (13:45)
[2017-11-30] MEDS ORDERED: Furosemide TAB* 40 MG PO SCH (14:00)
--- NOTE | 2017-11-30 14:51 | PN ---
Subjective Date of Service: 11/30/17 Interval History: Continue to c/o right rib area pain with deep breath, and palpation. Denies any shortness of breath, Denies chest pain or abd pain. denies n/v/d Family History: Unchanged from Admission Social History: Unchanged from Admission Past Medical History: Unchanged from Admission Objective Active Medications: Acetaminophen (Tylenol Tab*) 650 mg PO Q4H PRN PRN Reason: FEVER/PAIN Last Admin: 11/29/17 11:32 Dose: 650 mg Albuterol (Ventolin 2.5 Mg/3 Ml Neb.Amanda*) 2.5 mg INH Q2H PRN PRN Reason: SOB/WHEEZING Aspirin (Aspirin Ec Low Dose*) [facility] [place] Last Admin: 11/30/17 08:13 Dose: 81 mg Dabigatran (Pradaxa Cap(Nf)) 150 mg PO BID [facility] Last Admin: 11/30/17 08:13 Dose: 150 mg Dextrose (D50w Syringe 50 Ml*) 12.5 gm IV PUSH .FOR FS < 60 - SS PRN PRN Reason: FS < 60 Furosemide (Lasix Tab*) [facility] [place] Last Admin: 11/30/17 14:25 Dose: 40 mg Insulin Glargine (Lantus(*)) 35 units SUBCUT BEDTIME [facility] Last Admin: 11/29/17 21:05 Dose: 35 units Insulin Human Lispro (Humalog*) 0 units SUBCUT AC [facility] PRN Reason: Protocol Last Admin: 11/30/17 12:49 Dose: 6 units Magnesium Oxide (Magox 400 Tab*) 400 mg PO [facility] Last Admin: 11/30/17 08:13 Dose: 400 mg Meclizine HCl (Antivert Tab*) 25 mg PO TID PRN PRN Reason: DIZZINESS Metoprolol Succinate (Toprol Xl Tab*) 100 mg PO BID [facility] Last Admin: 11/30/17 08:13 Dose: 100 mg Morphine Sulfate (Morphine Inj (Syringe)*) 2 mg IV Q4H PRN PRN Reason: PAIN - MILD Last Admin: 11/30/17 00:23 Dose: 2 mg Ondansetron HCl (Zofran Inj*) 4 mg IV Q4H PRN PRN Reason: NAUSEA Last Admin: 11/30/17 05:03 Dose: 4 mg Oxycodone/Acetaminophen (Percocet 5/325 Tab*) 1 tab PO Q6H PRN PRN Reason: PAIN Last Admin: 11/29/17 21:10 Dose: 1 tab Polyethylene Glycol/Electrolytes (Miralax*) 17 gm PO DAILY PRN PRN Reason: CONSTIPATION Last Admin: 11/30/17 14:25 Dose: 17 gm Rosuvastatin Calcium (Crestor (Nf)) 40 mg PO QPM [facility] Last Admin: 11/29/17 17:46 Dose: 40 mg Spironolactone (Aldactone Tab*) 50 mg PO QAM [facility] Last Admin: 11/30/17 14:25 Dose: 50 mg Vital Signs - 8 hr 11/30/17 11/30/17 11/30/17 07:39 08:12 11:43 Temperature 97.7 F 97.4 F Pulse Rate 67 70 Respiratory 18 16 18 Rate Blood Pressure 127/71 95/66 (mmHg) O2 Sat by Pulse 96 99 Oximetry Oxygen Devices in Use Now: None Appearance: appears in mild pain sitting on the edge of the bed. Eyes: No Scleral Icterus Ears/Nose/Mouth/Throat: Clear Oropharnyx, Mucous Membranes Moist Neck: NL Appearance and Movements; NL JVP, Trachea Midline Respiratory: Symmetrical Chest Expansion and Respiratory Effort, Clear to Auscultation Cardiovascular: NL Sounds; No Murmurs; No JVD Abdominal: NL Sounds; No Tenderness; No Distention Extremities: No Clubbing, Cyanosis, - - bilat lower legs + 1 pitting Skin: No Rash or Ulcers, - - scratches and scabbed areas noted to bilat legs Neurological: Alert and Oriented x 3 Nutrition: Taking PO's Result Diagrams: 11/29/17 05:26 11/29/17 05:26 Additional Lab and Data: Lab Results 11/28/17 11/28/17 11/28/17 Range/Units 13:00 13:00 13:00 WBC (3.5-10.8) 10^3/ul RBC (4.0-5.4) 10^6/ul Hgb (12.0-16.0) g/dl Hct (35-47) % MCV (80-97) fL MCH (27-31) pg MCHC (31-36) g/dl RDW (10.5-15) % Plt Count (150-450) 10^3/ul MPV (7.4-10.4) um3 Neut % (Auto) (38-83) % Lymph % (Auto) (25-47) % Logan % (Auto) (0-7) % Eos % (Auto) (0-6) % Baso % (Auto) (0-2) % Absolute Neuts (auto) (1.5-7.7) 10^3/ul Absolute Lymphs (auto) (1.0-4.8) 10^3/ul Absolute Monos (auto) (0-0.8) 10^3/ul Absolute Eos (auto) (0-0.6) 10^3/ul Absolute Basos (auto) (0-0.2) 10^3/ul Absolute Nucleated RBC 10^3/ul Nucleated RBC % INR (Anticoag Therapy) 1.21 H (0.77-1.02) APTT 40.0 H (26.0-36.3) seconds D-Dimer, Quantitative 295 H (Less Than 230) ng/mL Sodium 134 (133-145) mmol/L Potassium 4.6 (3.5-5.0) mmol/L Chloride 100 L (101-111) mmol/L Carbon Dioxide 26 (22-32) mmol/L Anion Gap 8 (2-11) mmol/L BUN 21 (6-24) mg/dL Creatinine 1.67 H (0.51-0.95) mg/dL Est GFR ( Amer) 39.8 (>60) Est GFR (Non-Af Amer) 31.0 (>60) BUN/Creatinine Ratio 12.6 (8-20) Glucose 326 H (70-100) mg/dL Lactic Acid (0.5-2.0) mmol/L Calcium 9.5 (8.6-10.3) mg/dL Magnesium 2.2 (1.9-2.7) mg/dL Total Bilirubin 0.80 (0.2-1.0) mg/dL AST 14 (13-39) U/L ALT 10 (7-52) U/L Alkaline Phosphatase 113 H (34-104) U/L Total Creatine Kinase 71 (10-223) U/L CK-MB (CK-2) 3.9 (0.6-6.3) ng/mL Myoglobin 36.9 (14.3-65.8) ng/mL Troponin I 0.01 (<0.04) ng/mL B-Natriuretic Peptide 681 H ( - 100) pg/mL Total Protein 7.5 (6.4-8.9) g/dL Albumin 3.8 (3.2-5.2) g/dL Globulin 3.7 (2-4) g/dL Albumin/Globulin Ratio 1.0 (1-3) TSH 5.54 (0.34-5.60) mcIU/mL Urine Color Urine Appearance Urine pH (5-9) Ur Specific [place] (1.010-1.030) Urine Protein (Negative) Urine Ketones (Negative) Urine Blood (Negative) Urine Nitrate (Negative) Urine Bilirubin (Negative) Urine Urobilinogen (Negative) Ur Leukocyte Esterase (Negative) Urine Glucose (Negative) 11/28/17 11/28/17 11/28/17 Range/Units 13:00 13:00 13:40 WBC 10.0 (3.5-10.8) 10^3/ul RBC 4.97 (4.0-5.4) 10^6/ul Hgb 12.3 (12.0-16.0) g/dl Hct 39 (35-47) % MCV 79 L (80-97) fL MCH 25 L (27-31) pg MCHC 31 (31-36) g/dl RDW 18 H (10.5-15) % Plt Count 275 (150-450) 10^3/ul MPV 9 (7.4-10.4) um3 Neut % (Auto) 78.4 (38-83) % Lymph % (Auto) 14.5 L (25-47) % Logan % (Auto) 5.5 (0-7) % Eos % (Auto) 0.9 (0-6) % Baso % (Auto) 0.7 (0-2) % Absolute Neuts (auto) 7.8 H (1.5-7.7) 10^3/ul Absolute Lymphs (auto) 1.5 (1.0-4.8) 10^3/ul Absolute Monos (auto) 0.5 (0-0.8) 10^3/ul Absolute Eos (auto) 0.1 (0-0.6) 10^3/ul Absolute Basos (auto) 0.1 (0-0.2) 10^3/ul Absolute Nucleated RBC 0 10^3/ul Nucleated RBC % 0.1 INR (Anticoag Therapy) (0.77-1.02) APTT (26.0-36.3) seconds D-Dimer, Quantitative (Less Than 230) ng/mL Sodium (133-145) mmol/L Potassium (3.5-5.0) mmol/L Chloride (101-111) mmol/L Carbon Dioxide (22-32) mmol/L Anion Gap (2-11) mmol/L BUN (6-24) mg/dL Creatinine (0.51-0.95) mg/dL Est GFR ( Amer) (>60) Est GFR (Non-Af Amer) (>60) BUN/Creatinine Ratio (8-20) Glucose (70-100) mg/dL Lactic Acid 2.6 H* (0.5-2.0) mmol/L Calcium (8.6-10.3) mg/dL Magnesium (1.9-2.7) mg/dL Total Bilirubin (0.2-1.0) mg/dL AST (13-39) U/L ALT (7-52) U/L Alkaline Phosphatase (34-104) U/L Total Creatine Kinase (10-223) U/L CK-MB (CK-2) (0.6-6.3) ng/mL Myoglobin (14.3-65.8) ng/mL Troponin I (<0.04) ng/mL B-Natriuretic Peptide ( - 100) pg/mL Total Protein (6.4-8.9) g/dL Albumin (3.2-5.2) g/dL Globulin (2-4) g/dL Albumin/Globulin Ratio (1-3) TSH (0.34-5.60) mcIU/mL Urine Color Straw Urine Appearance Clear Urine pH 6.0 (5-9) Ur Specific [place] 1.006 L (1.010-1.030) Urine Protein Negative (Negative) Urine Ketones Negative (Negative) Urine Blood Negative (Negative) Urine Nitrate Negative (Negative) Urine Bilirubin Negative (Negative) Urine Urobilinogen Negative (Negative) Ur Leukocyte Esterase Negative (Negative) Urine Glucose Negative (Negative) 03/11/18 Range/Units 15:25 WBC (3.5-10.8) 10^3/ul RBC (4.0-5.4) 10^6/ul Hgb (12.0-16.0) g/dl Hct (35-47) % MCV (80-97) fL MCH (27-31) pg MCHC (31-36) g/dl RDW (10.5-15) % Plt Count (150-450) 10^3/ul MPV (7.4-10.4) um3 Neut % (Auto) (38-83) % Lymph % (Auto) (25-47) % Logan % (Auto) (0-7) % Eos % (Auto) (0-6) % Baso % (Auto) (0-2) % Absolute Neuts (auto) (1.5-7.7) 10^3/ul Absolute Lymphs (auto) (1.0-4.8) 10^3/ul Absolute Monos (auto) (0-0.8) 10^3/ul Absolute Eos (auto) (0-0.6) 10^3/ul Absolute Basos (auto) (0-0.2) 10^3/ul Absolute Nucleated RBC 10^3/ul Nucleated RBC % INR (Anticoag Therapy) (0.77-1.02) APTT (26.0-36.3) seconds D-Dimer, Quantitative (Less Than 230) ng/mL Sodium (133-145) mmol/L Potassium (3.5-5.0) mmol/L Chloride (101-111) mmol/L Carbon Dioxide (22-32) mmol/L Anion Gap (2-11) mmol/L BUN (6-24) mg/dL Creatinine (0.51-0.95) mg/dL Est GFR ( Amer) (>60) Est GFR (Non-Af Amer) (>60) BUN/Creatinine Ratio (8-20) Glucose (70-100) mg/dL Lactic Acid (0.5-2.0) mmol/L Calcium (8.6-10.3) mg/dL Magnesium (1.9-2.7) mg/dL Total Bilirubin (0.2-1.0) mg/dL AST (13-39) U/L ALT (7-52) U/L Alkaline Phosphatase (34-104) U/L Total Creatine Kinase (10-223) U/L CK-MB (CK-2) (0.6-6.3) ng/mL Myoglobin (14.3-65.8) ng/mL Troponin I 0.01 (<0.04) ng/mL B-Natriuretic Peptide ( - 100) pg/mL Total Protein (6.4-8.9) g/dL Albumin (3.2-5.2) g/dL Globulin (2-4) g/dL Albumin/Globulin Ratio (1-3) TSH (0.34-5.60) mcIU/mL Urine Color Urine Appearance Urine pH (5-9) Ur Specific [place] (1.010-1.030) Urine Protein (Negative) Urine Ketones (Negative) Urine Blood (Negative) Urine Nitrate (Negative) Urine Bilirubin (Negative) Urine Urobilinogen (Negative) Ur Leukocyte Esterase (Negative) Urine Glucose (Negative) Microbiology and Other Data: Microbiology 11/28/17 19:15 Urine Culture - Final Urine Assess/Plan/Problems-Billing Assessment: Ms. Alcantar is a 62 y.o female patient with a hx of DVT's in her lower ext and left upper ext. presented to the emergency room for shortness of breath and pain with deep breath; concerned for PE. 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 She will follow up with [facility] tomorrow at 1500. (2) History of DVT (deep vein thrombosis) Status: Acute Code(s): Z86.718 - PERSONAL HISTORY OF OTHER VENOUS THROMBOSIS AND EMBOLISM SNOMED Code(s): 499496682 Comment: ~ hx of DVT after pace maker placement. ~Currently on pradaxa at home ~ will restart and stop lovenox ~ VQ Scan intermediate for PE; discussed result with Dr. Galdamez~ Dr. Galdamez recommended continuing pradaxa and no further testing. (3) History of pulmonary embolism Status: Acute Code(s): Z86.711 - PERSONAL HISTORY OF PULMONARY EMBOLISM SNOMED Code(s): 621464250 Comment: ~ VQ scan completed ~ intermediate for probability of PE (4) DVT prophylaxis Status: Acute Priority: Medium Code(s): JAF1012 - SNOMED Code(s): 725486483 Comment: Stop Lovenox - restart Pradaxa (5) Diabetes mellitus Status: Chronic Code(s): E11.9 - TYPE 2 DIABETES MELLITUS WITHOUT COMPLICATIONS SNOMED Code(s): 31998629 Comment: Blood sugar 134-148 Continue Lantus and Lispro sliding scale fingersticks AC (6) HLD (hyperlipidemia) Status: Chronic Code(s): E78.5 - HYPERLIPIDEMIA, UNSPECIFIED SNOMED Code(s) : 27352895 Comment: - Continue statin (7) HTN (hypertension) Status: Chronic Code(s): I10 - ESSENTIAL (PRIMARY) HYPERTENSION SNOMED Code( s): 10830560 Comment: SBP 99-118 - Controlled - Continue home meds (8) Full code status Status: Acute Priority: Medium Code(s): Z78.9 - OTHER SPECIFIED HEALTH STATUS SNOMED Code(s): 334669816
[2017-11-30 18:43] VITALS: BP 118/73
--- NOTE | 2017-11-30 19:07 | PN ---
Hospitalist Progress Note Date of Service: 11/30/17 I-stop reviewed ref # [id number]
--- NOTE | 2017-12-02 16:45 | DS ---
DISCHARGE SUMMARY: DATE OF ADMISSION: 11/28/17 DATE OF DISCHARGE: 11/30/17 PROVIDER: Norah Myers NP ATTENDING PHYSICIAN WHILE IN THE HOSPITAL: Sammy Masterson MD (dictated by Norah Myers NP). PRIMARY CARE PROVIDERS: Dr. Valera, Cardiology; Dr. Gia Carson. PRIMARY DIAGNOSES: 1. Shortness of breath. 2. Left rib pain. SECONDARY DIAGNOSES: 1. Deep vein thrombosis and pulmonary embolism. 2. Cardiomyopathy with an EF less than 20%. 3. History of coronary artery disease. 4. Diabetes. 5. Hyperlipidemia. 6. Obesity. 7. History of myocardial infarction. 8. History of obstructive sleep apnea, currently not wearing CPAP. 9. History of atrial fibrillation. 10. History of chronic obstructive pulmonary disease. 11. ICD and pacemaker placement. STUDIES COMPLETED WHILE IN THE HOSPITAL: She had a chest x-ray on 11/28/17. Radiologist's impression : No active cardiopulmonary disease. She had an electrocardiogram on 11/28/17, which showed a paced rhythm and a rate of 77. She had a V/Q scan on 11/29/17. Radiologist's impression: Intermediate p robability for new pulmonary emboli when compared to previous V/Q scans, most recent study from 10/05, there are multiple small perfusion defects present in both lungs. The majority of these appear s imilar to the prior lung perfusion ventilation scans, although there are a few new defects, 1 posteri or to the left lung base and 1 to the left upper lobe. No definite corresponding ventilation abnorma lity seen, although the ventilation images are limited. DISCHARGE MEDICATIONS: New medication: Percocet 5/325, 1 tablet q.6 hours as needed for pain, I-STO P number [id number]. There was no records. Continued home medications: 1. Meclizine 25 mg t.i.d. p.r.n. 2. Magnesium oxide 400 mg p.o. q.a.m. 3. Lantus 35 units at bedtime. 4. Glimepiride 4 mg p.o. b.i.d. 5. Furosemide 40 mg p.o. q.a.m. 6. Pradaxa 150 mg p.o. b.i.d. 7. Aspirin 81 mg p.o. q.a.m. 8. Aldactone 50 mg p.o. q.a.m. 9. Crestor 40 mg p.o. q.p.m. 10. Nitroglycerin 0.4 mg subcu daily. 11. Metoprolol succinate XL 100 mg p.o. b.i.d. HISTORY OF PRESENT ILLNESS AND HOSPITAL COURSE: Ms. Alcantar is a 62-year-old female, who carries a history of recurrent DVTs and PEs, who failed Eliquis in the past. She comes to the emergency room t merle, stating around 1400 yesterday, she started having sudden onset of left-sided chest pain in her rib cage area, worse with taking a deep breath. She says that she was feeling short of breath. She also said the pain felt similar to her previous pulmonary emboli. She states that the pain has been constant. She denies having any orthopnea. No weight gain. No fevers or chills. No recent trauma. Denies any recent surgeries, any long trips or travels. She denies having any calf pain or leg morena n or any leg swelling. She states her breathing was not getting any better, so she drove herself to the hospital today because she was concerned that she may have a recurrent PE or possibly another DVT . While in the emergency room, she had an x-ray of her chest, report as noted above. Routine lab wo rk was obtained. Her initial D-dimer was 295. INR was 1.21, APTT was 40.0. CBC within normal limit s. Her ESR was 53. Blood sugars throughout her hospitalization were 134 to 214. Her BMP was within normal limits except for her creatinine that was 1.42 which is slightly elevated from 10/05/17, her c reatinine was 1.26 and 1.33. While in the hospital, she had a V/Q scan done which showed intermediate risk of pulmonary embolism. I did discuss this with Dr. De La Cruz, her mixing tank operator, who feels that this reading is similar to her pr ior readings and that she is able to go home and continue her Pradaxa. The patient denied any tachyc ardia. She denied any shortness of breath. Her left rib pain is reproducible with palpation and mov ement. At this time, Ms. Alcantar is stable for discharge home. Ms. Alcantar will be discharged home today. Vital signs are as follows: Temperature 97.4, heart rate 70, respirations 18, O2 saturation on room air 99%, blood pressure 127/71. DISCHARGE PLAN: 1. Ms. Alcantar will be discharged back home. 2. Activity as tolerated. 3. She should continue on a heart-healthy diet. 4. She should continue her Pradaxa as previously prescribed. This was discussed with Dr. De La Cruz, who is in agreement with continuing the Pradaxa. As far as her musculoskeletal left rib pain, she can ta ke Percocet 5/325, 1 tablet every 6 hours as needed for pain. She is to follow up with Dr. Valera tomorrow at 3 p.m., 12/01/17. She should follow up with her primary care provider as scheduled on 12/06/17. The patient was instructed to return to the emergency room for any increased shortness of breath or c hest pain or any worsening in her symptoms. This is a summarization of her medical stay hospitalization. For further details, please see the ent charbel medical record. TIME SPENT: Time spent on this discharge was approximately 60 minutes, greater than half that time w as spent with the patient discussing discharge plans and instructions. CONDITION ON DISCHARGE: Stable. NORAH MYERS, EDDY [id number]/[facility] #: [id number]
== END 2017-11-30 17:30 | disposition home or self-care (01) ==
LOC: ED 12:48 → MEDTELE 15:48
PROVIDERS: ADMIT Pediatrics; ATTEND Internal Medicine
DX: R07.89 Other chest pain (principal); R06.02 Shortness of breath; Z86.718 Personal history of other venous thrombosis and embolism; Z86.711 Personal history of pulmonary embolism; E11.9 Type 2 diabetes mellitus without complications; E78.5 Hyperlipidemia, unspecified; I10 Essential (primary) hypertension; Z78.9 Other specified health status; Z87.891 Personal history of nicotine dependence; Z95.0 Presence of cardiac pacemaker; I25.10 Atherosclerotic heart disease of native coronary artery without angina pectoris; E66.9 Obesity, unspecified; I25.2 Old myocardial infarction; G47.33 Obstructive sleep apnea (adult) (pediatric); Z87.09 Personal history of other diseases of the respiratory system; Z90.89 Acquired absence of other organs
CPT/HCPCS: 36415; 71045; 78582; 80048; 80053; 81003; 81015; 82550; 82553; 82570; 83605; 83735; 83874; 83880; 84300; 84443; 84484; 85025; 85379; 85610; 85652; 85730; 86038; 86147; 86431; 87086; 93005; 93306; 93970; 99283; A9270-GY; A9540; A9558; C8929; G0378; J1650; J2270; J2405

== ENCOUNTER 2017-12-28 16:04 | Inpatient (IN) | payer MEDICARE, OTHER ==
[2017-12-28 17:02] LABS: ABS Basophils 0.1 10^3/ul (0-0.2); ABS Eosinophils 0.1 10^3/ul (0-0.6); ABS Lymphocytes 1.1 10^3/ul (1.0-4.8); ABS Monocytes 1.2 10^3/ul (0-0.8); ABS Neutrophils 11.4 10^3/ul (1.5-7.7); ABS Nucleated RBC 0 10^3/ul; Eosinophil % 0.5 % (0-6); Hematocrit 43 % (35-47); Hemoglobin 13.8 g/dl (12.0-16.0); Lymphocyte % 8.2 % (25-47); Mean Corpuscular HGB Conc 32 g/dl (31-36); Mean Corpuscular Hemoglobin 25 pg (27-31); Mean Corpuscular Volume 77 fL (80-97); Mean Platelet Volume 8.1 um3 (7.4-10.4); Nucleated Red Blood Cells % 0.2; Platelet Count 320 10^3/ul (150-450); Red Blood Count 5.59 10^6/ul (4.0-5.4); Red Cell Distribution Width 19 % (10.5-15); White Blood Count 13.9 10^3/ul (3.5-10.8)
--- NOTE | 2017-12-28 17:09 | RAD ---
Indication: Shortness of breath. Chronic obstructive pulmonary disease. Coronary artery disease. History of congestive heart failure. Comparison: November 28, 2017 Technique: Upright AP 1657 hours Report: Unchanged RIGHT atrial, RIGHT ventricular, and probable coronary sinus level pacemaker leads. Cardiomegaly appears increased. Prominent mildly ill-defined central pulmonary vasculature. Mild prominence of the interstitial markings. Small LEFT dependent pleural effusion not excluded. Negative for pneumothorax. IMPRESSION: Mild pulmonary vascular congestion and interstitial edema. Potential associated small LEFT pleural effusion.
[2017-12-28 17:15] LABS: INR 1.5 (0.77-1.02)
[2017-12-28] MEDS ORDERED: Furosemide IV* 10 MG/ML 2 ML VIAL (20 MG) IV ONE (17:31)
[2017-12-28] MEDS ORDERED: Nitroglycerin TAB 0.4 MG* 0.4 MG TAB SL PRN (18:27)
[2017-12-28] MEDS ORDERED: Dextrose 50% Syringe 50 ML* 25 GM/50 ML SYRINGE IV PUSH PRN (19:07)
[2017-12-28] MEDS ORDERED: cefTRIAXone(*) 1 GM in NS 0.9% 50 ML* 50 ML IVPB SCH (20:00)
[2017-12-28] MEDS ORDERED: Insulin GLARGINE(*) 1 UNITS UNIT SUBCUT SCH (21:00)
[2017-12-28] MEDS: Metoprolol Succinate XL TAB* 100 MG PO SCH (21:38)
[2017-12-28] MEDS: CMCS Dabigatran CAP(NF) 150 MG CAP PO SCH (21:38)
[2017-12-28] MEDS: CMCS Rosuvastatin (NF) 20 MG TAB PO SCH (21:38)
[2017-12-28] MEDS: Insulin LISPRO* 1 UNITS UNIT SUBCUT SCH (21:38)
[2017-12-28] MEDS: Furosemide IV* 10 MG/ML 10 ML VIAL (100 MG) IV SCH (21:39)
--- NOTE | 2017-12-28 21:59 | HP ---
HISTORY AND PHYSICAL: DATE OF ADMISSION: 12/28/17 ADMITTING PROVIDER: Sammy Masterson MD PRIMARY CARE PHYSICIAN: Dr. Carson of [place]. OUTPATIENT WAGON DRILLER: Dr. Valera. OUTPATIENT BACK HANGER: Dr. Delaney [place]. CHIEF COMPLAINT: Generally feeling unwell, unable to stand on feet, shortness of breath, cough, recent fevers, chills, and suspected flu-like symptoms, dizziness, palpitations. HISTORY OF PRESENT ILLNESS: Kinjal Alcantar is a 62-year-old female with past medical history of severe CHF with ejection fraction less than 20% and moderate mitral valve regurgitation, moderate pulmonary hypertension; insulin-dependent diabetes mellitus; CAD with MIs; DVT and PEs, on Pradaxa; COPD; obstructive sleep apnea, on CPAP; hyperlipidemia; obesity. She is a high utilizer patient. The patient, on 12/18/17, believes she developed flu-like symptoms. She was dizzy, had a very poor appetite and a cough, headaches. She developed fevers and chills on 12/21/17. She called her primary care physician, Dr. Carson, who recommended keeping well hydrated. She was never formally tested for the flu, but had a sick contact including her grandson , Antonio. She started to feel like she could not stand on her feet. She has been sleeping 18 hours a day. She has had a 3-pillow orthopnea and increased sensation of bloating in her stomach and chest. She is constantly dizzy, cannot walk or drive and finally called PCP again who referred her for emergency room evaluation. Here, she has had elevated BNP of 637, CRP of 230, white count of 13.9. She had a chest x-ray, which showed some mild pulmonary congestion and small left pleural effusion. She was referred to hospitalist service for admission for suspected CHF exacerbation. She says she has been taking extra dose of her Lasix (20 mg at night) given the sensation of bloating and she thinks that her weight has actually dropped 9 pounds over the course of the week from 245 pounds to 236. She said she has had a very poor appetite and was recently started on mealtime Humalog 5 units t.i.d. q.a.c., though she has only been taking it if she has been eating. She feels her legs are swollen. She denies any diarrhea. Has had some slight constipation. She has had some burning with urination for the last 2 days and therefore, has also been drinking more water. The palpitations started 3 days prior to admission. She denies any chest pain. Headaches have resolved and no current fevers or chills. She had actually started to feel somewhat better from the flu-like symptoms 4 days prior to admission. PAST MEDICAL HISTORY: DVT and PE; severe cardiomyopathy with ejection fraction less than 20%, worsened also by moderate mitral valve regurgitation and moderate pulmonary hypertension; CAD; insulin-dependent diabetes mellitus; hyperlipidemia; obesity; LA; obstructive sleep apnea, on CPAP; atrial fibrillation; COPD. PAST SURGICAL HISTORY: ICD, pacemaker, appendectomy, , heart catheterization with 1 stent, tonsillectomy. MEDICATIONS: Include: 1. Aspirin 81 mg q.a.m. 2. Metoprolol succinate 100 mg p.o. b.i.d. 3. Spironolactone 50 mg p.o. q.a.m. 4. Crestor 40 mg q.p.m. 5. Magnesium 400 mg q.a.m. 6. Pradaxa 150 mg p.o. b.i.d. 7. Furosemide 40 mg p.o. q.a.m. with p.r.n. 20 mg at night. 8. Lantus 35 units q.a.m. 9. Humalog 5 units with meals. 10. Nitroglycerin 0.4 mg as needed. 11. Tylenol No. 3 as needed for pain. 12. Ventolin inhaler p.r.n. FAMILY HISTORY: Mother in 1978 at unknown age from alcoholism and heart attacks. Father at age 43 from cancer "all over." SOCIAL HISTORY: The patient is a former smoker of approximately 20 years averaging half pack per day, quit 6 years ago. Former occasional drinker, no longer. 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 She lives alone and values her independence greatly; likely would never accept admission to a [facility] facility. Her daughter, Kyung Johnson, is her medical proxy. She left her MOLST at home, will bring. For now, she wants to be a full code, but would not want prolonged life support. REVIEW OF SYSTEMS: A complete 14-point review of systems negative except as per HPI. The patient sometimes gets nosebleeds if she coughs after using CPAP at night. PHYSICAL EXAMINATION GENERAL APPEARANCE: No acute distress, but slightly anxious appearing with soft voice, sometimes short of breath with speaking. VITAL SIGNS: Temperature 97.5, heart rate 93, respiratory rate 16 to 23 on room air, blood pressure 104/59. HEENT: Normocephalic, atraumatic. Pupils are equal, round, and reactive to light. Extraocular motions intact. NECK: No cervical lymphadenopathy. No neck stiffness. PULMONARY: Rales at the left lower base. No wheezing or rhonchi. CARDIOVASCULAR: Regular rate and rhythm. No murmurs, rubs, or gallops. ABDOMEN: Soft, distended/obese, nontender. No peritoneal signs. No rebound or guarding. No Mendez sign. EXTREMITIES: Warm, well perfused. Some 1+ nonpitting edema bilaterally. NEURO: Moving all extremities. Cranial nerves II through XII intact. Sensation intact. SKIN: Excoriations on the right anterior west and old scar chatman diffusely from excoriations. LABORATORY DATA: White count 13.9, hemoglobin 13.8, platelets 320,000, hematocrit 43, RDW 19, MCV 77. INR 1.50, PTT 46.2. PH 7.5, pCO2 of 33, pO2 of 80, bicarb 27.1. Sodium 131, potassium 3.6, chloride 91, carbon dioxide 31, BUN 20, creatinine 1.31, GFR 41, glucose 269, lactic acid 1.5, calcium 9.5, magnesium 2.3, total bili 0.9, AST 19, ALT 34, alk phos 159. Troponin 0.03. CRP 229. BNP 637. Albumin 3.5, procalcitonin 0.4. IMAGING: Chest x-ray demonstrated mild pulmonary congestion and potential associated small left pleural effusion. There was also interstitial edema. Her EKG showed ventricular pacing, heart rate 93. ASSESSMENT AND PLAN: Kinjal Alcantar is a 62-year-old female with severe cardiomyopathy with ejection fraction less than 20%; moderate mitral valve regurgitation; insulin-dependent diabetes mellitus; atrial fibrillation; deep venous thrombosis/pulmonary embolism, on Pradaxa, presenting with 10 days of feeling unwell with suspected flu-like symptoms followed by concern for shortness of breath, palpitations, swelling in feet and worsening orthopnea. Her BNP is elevated, but no markedly so compared to other readings. She does have evidence of volume overload on exam. She does not know her dry weight. Given the degree of her cardiomyopathy worsened by mitral valve regurgitation, she has a very tenuous cardiac status and may have some congestive heart failure, her recent illness and possible tachycardia associated with that. We are going diurese her, get daily weights, strict I's and O's. I am going to get a flu swab to see if she is having any evidence of the influenza she suspects, but likely outside the window of any Tamiflu. We will get sputum cultures and start her on ceftriaxone. She has markedly elevated CRP. Blood cultures were obtained and will be followed. We will continue her metoprolol succinate XL 100 mg p.o. b.i.d. for her cardiomyopathy and nitroglycerin for any angina. For insulin-dependent diabetes mellitus, continue her 35 units of Lantus each morning, put her on sliding scale insulin and hold her mealtime insulin. For her atrial fibrillation, deep venous thromboses and pulmonary embolisms, continue her Pradaxa 150 mg p.o. b.i.d. She had been seen by Dr. De La Cruz during last admission when she had an indeterminate V/Q scan, though he did not feel at that time it was significantly different from prior. She does have moderate pulmonary hypertension. Overall, her prognosis is rather poor given her cardiac status. She has had greatly decreased quality of life and independence since her pacemaker placement in June 2017. Consideration for palliative care consult given her goals of care, independence living. We will get physical therapy to work with her. She is being admitted to inpatient status. She is going to eat a heart-healthy diet. She is a full code for now and her medical surrogate is Kyung Johnson. [id number]/[facility] #: [id number] [facility] CENTERXochitl
[2017-12-28 22:21] LABS: Urine Appearance Cloudy; Urine Blood 1+ (Negative); Urine Color Yellow; Urine Ketones Negative (Negative); Urine Protein 1+(30 mg/dL) (Negative); Urine Specific Gravity 1.011 (1.010-1.030); Urine Urobilinogen Negative (Negative)
[2017-12-29] MEDS ORDERED: Levofloxacin 750 MG IVPREMIX(* 750 MG/150 ML BAG IVPB ONE
[2017-12-29 06:49] LABS: ABS Basophils 0.1 10^3/ul (0-0.2); ABS Eosinophils 0.1 10^3/ul (0-0.6); ABS Lymphocytes 1.2 10^3/ul (1.0-4.8); ABS Neutrophils 11.4 10^3/ul (1.5-7.7); ABS Nucleated RBC 0 10^3/ul; Eosinophil % 0.6 % (0-6); Hematocrit 41 % (35-47); Hemoglobin 13.2 g/dl (12.0-16.0); Lymphocyte % 8.8 % (25-47); Mean Corpuscular HGB Conc 32 g/dl (31-36); Mean Corpuscular Hemoglobin 25 pg (27-31); Mean Corpuscular Volume 77 fL (80-97); Mean Platelet Volume 8.2 um3 (7.4-10.4); Nucleated Red Blood Cells % 0; Platelet Count 277 10^3/ul (150-450); Red Blood Count 5.33 10^6/ul (4.0-5.4); Red Cell Distribution Width 19 % (10.5-15); White Blood Count 13.8 10^3/ul (3.5-10.8)
[2017-12-29 07:13] LABS: EGFR Non-African American 41.4 (>60)
[2017-12-29] MEDS: Aspirin EC TAB* 81 MG TAB.EC PO SCH (08:04)
[2017-12-29] MEDS: Metoprolol Succinate XL TAB* 100 MG PO SCH ×2 (08:04→21:01)
[2017-12-29] MEDS: Magnesium Oxide TAB* 400 MG PO SCH (08:04)
[2017-12-29] MEDS: CMCS Dabigatran CAP(NF) 150 MG CAP PO SCH ×2 (08:04→21:01)
[2017-12-29] MEDS: Insulin LISPRO* 1 UNITS UNIT SUBCUT SCH ×4 (08:05→21:00)
[2017-12-29] MEDS: Furosemide IV* 10 MG/ML 10 ML VIAL (100 MG) IV SCH ×2 (08:06→17:12)
[2017-12-29] MEDS ORDERED: Insulin GLARGINE(*) 1 UNITS UNIT SUBCUT SCH (09:00)
[2017-12-29] MEDS ORDERED: Polyethylene Glycol 3350* 17 GM PACKET PO PRN (15:21)
[2017-12-29] MEDS ORDERED: Potassium Chlor TAB* 20 MEQ TAB.ER PO ONE (16:08)
[2017-12-29] MEDS: Docusate CAP* 100 MG PO SCH (17:19)
[2017-12-29] MEDS: CMCS Rosuvastatin (NF) 20 MG TAB PO SCH (17:19)
--- NOTE | 2017-12-29 17:23 | PN ---
Subjective Date of Service: 12/29/17 Interval History: Feeling better. nonproductive cough poor appetite still. afebrile. started levaquin last night. diuresing. walked in [place]. PT no needs. wanting colace Objective Active Medications: Aspirin (Aspirin Ec Tab*) 81 mg PO QAM [facility] Last Admin: 12/29/17 08:04 Dose: 81 mg Dabigatran (Pradaxa Cap(Nf)) 150 mg PO BID [facility] Last Admin: 12/29/17 08:04 Dose: 150 mg Dextrose (D50w Syringe 50 Ml*) 12.5 gm IV PUSH .FOR FS < 60 - SS PRN PRN Reason: FS < 60 Docusate Sodium (Colace Cap*) 100 mg PO DAILY [facility] Last Admin: 12/29/17 17:19 Dose: 100 mg Furosemide (Lasix Iv*) 60 mg IV 0800,1700 [facility] Last Admin: 12/29/17 17:12 Dose: 60 mg Levofloxacin/Dextrose (Levaquin 750 Mg Ivpremix(*)) 750 mg in 150 mls @ 100 mls /hr IVPB Q48H [facility] Insulin Glargine (Lantus(*)) 35 units SUBCUT QPM [facility] Insulin Glargine (Lantus(*)) 20 units SUBCUT ONCE ONE Stop: 12/29/17 20:01 Insulin Human Lispro (Humalog*) 0 units SUBCUT ACHS [facility] PRN Reason: Protocol Last Admin: 12/29/17 17:10 Dose: 3 unit Magnesium Oxide (Magox 400 Tab*) 400 mg PO QAM [facility] Last Admin: 12/29/17 08:04 Dose: 400 mg Metoprolol Succinate (Toprol Xl Tab*) 100 mg PO BID [facility] Last Admin: 12/29/17 08:04 Dose: 100 mg Nitroglycerin (Nitroglycerin Tab 0.4 Mg*) 0.4 mg SL DAILY PRN PRN Reason: PAIN - CHEST Polyethylene Glycol/Electrolytes (Miralax*) 17 gm PO DAILY PRN PRN Reason: CONSTIPATION Rosuvastatin Calcium (Crestor (Nf)) 40 mg PO QPM [facility] Last Admin: 12/29/17 17:19 Dose: 40 mg Vital Signs - 8 hr 12/29/17 12/29/17 11:53 15:31 Temperature 97.6 F 98.1 F Pulse Rate 87 90 Respiratory 18 20 Rate Blood Pressure 120/63 115/68 (mmHg) O2 Sat by Pulse 97 97 Oximetry Oxygen Devices in Use Now: None, CPAP Appearance: NAD, sitting side of bed. Eyes: No Scleral Icterus, PERRLA Ears/Nose/Mouth/Throat: NL Teeth, Lips, Gums Neck: NL Appearance and Movements; NL JVP Respiratory: Symmetrical Chest Expansion and Respiratory Effort, Clear to Auscultation Cardiovascular: NL Sounds; No Murmurs; No JVD, RRR Abdominal: NL Sounds; No Tenderness; No Distention, No Hepatosplenomegaly Extremities: No Edema Skin: No Rash or Ulcers Neurological: Alert and Oriented x 3, NL Sensation, NL Muscle Strength and Tone Nutrition: Taking PO's Result Diagrams: 12/29/17 06:10 12/29/17 06:10 Additional Lab and Data: Laboratory Results - last 24 hr 12/28/17 12/29/17 12/29/17 21:45 06:10 06:10 WBC 13.8 H RBC 5.33 Hgb 13.2 Hct 41 MCV 77 L MCH 25 L MCHC 32 RDW 19 H Plt Count 277 MPV 8.2 Neut % (Auto) 82.7 Lymph % (Auto) 8.8 L [place] % (Auto) 7.3 H Eos % (Auto) 0.6 Baso % (Auto) 0.6 Absolute Neuts (auto) 11.4 H Absolute Lymphs (auto) 1.2 Absolute Monos (auto) 1.0 H Absolute Eos (auto) 0.1 Absolute Basos (auto) 0.1 Absolute Nucleated RBC 0 Nucleated RBC % 0 Sodium 133 L Potassium 3.6 Chloride 91 L Carbon Dioxide 33 H Anion Gap 9 BUN 21 Creatinine 1.30 H Est GFR ( Amer) 53.2 Est GFR (Non-Af Amer) 41.4 BUN/Creatinine Ratio 16.2 Glucose 178 H POC Glucose (mg/dL) Calcium 9.2 Magnesium 2.3 Urine Color Yellow Urine Appearance Cloudy Urine pH 5.0 Ur Specific [place] 1.011 Urine Protein 1+(30 mg/dl) A Urine Ketones Negative Urine Blood 1+ A Urine Nitrate Negative Urine Bilirubin Negative Urine Urobilinogen Negative Ur Leukocyte Esterase Negative Urine WBC (Auto) 2+(11-20/hpf) A Urine RBC (Auto) Trace(0-2/hpf) Ur Squamous Epith Cells Present A Urine Bacteria 1+ A Hyaline Casts Present A Urine Glucose Negative 12/29/17 12/29/17 12/29/17 07:21 11:48 16:22 WBC RBC Hgb Hct MCV MCH MCHC RDW Plt Count MPV Neut % (Auto) Lymph % (Auto) [place] % (Auto) Eos % (Auto) Baso % (Auto) Absolute Neuts (auto) Absolute Lymphs (auto) Absolute Monos (auto) Absolute Eos (auto) Absolute Basos (auto) Absolute Nucleated RBC Nucleated RBC % Sodium Potassium Chloride Carbon Dioxide Anion Gap BUN Creatinine Est GFR ( Amer) Est GFR (Non-Af Amer) BUN/Creatinine Ratio Glucose POC Glucose (mg/dL) 216 H 170 H 190 H Calcium Magnesium Urine Color Urine Appearance Urine pH Ur Specific [place] Urine Protein Urine Ketones Urine Blood Urine Nitrate Urine Bilirubin Urine Urobilinogen Ur Leukocyte Esterase Urine WBC (Auto) Urine RBC (Auto) Ur Squamous Epith Cells Urine Bacteria Hyaline Casts Urine Glucose 12/29/17 20:23 WBC RBC Hgb Hct MCV MCH MCHC RDW Plt Count MPV Neut % (Auto) Lymph % (Auto) [place] % (Auto) Eos % (Auto) Baso % (Auto) Absolute Neuts (auto) Absolute Lymphs (auto) Absolute Monos (auto) Absolute Eos (auto) Absolute Basos (auto) Absolute Nucleated RBC Nucleated RBC % Sodium Potassium Chloride Carbon Dioxide Anion Gap BUN Creatinine Est GFR ( Amer) Est GFR (Non-Af Amer) BUN/Creatinine Ratio Glucose POC Glucose (mg/dL) 186 H Calcium Magnesium Urine Color Urine Appearance Urine pH Ur Specific [place] Urine Protein Urine Ketones Urine Blood Urine Nitrate Urine Bilirubin Urine Urobilinogen Ur Leukocyte Esterase Urine WBC (Auto) Urine RBC (Auto) Ur Squamous Epith Cells Urine Bacteria Hyaline Casts Urine Glucose Microbiology and Other Data: Microbiology 12/28/17 18:10 Blood Venous Aerobic Blood Culture - Preliminary No Growth Day 1 12/28/17 18:10 Blood Venous Anaerobic Blood Culture - Preliminary No Growth Day 1 12/28/17 16:53 Blood Venous Aerobic Blood Culture - Preliminary No Growth Day 1 12/28/17 16:53 Blood Venous Anaerobic Blood Culture - Preliminary No Growth Day 1 12/28/17 18:04 Nasal Influenza Types A,B Antigen (MAHSA) - Final Specimen received for Influenza A/B Molecular testing Assess/Plan/Problems-Billing Assessment: 62 yo female PMH systolic CHF (EF <20%), moderate MVR, IDDM, COPD, s/p AICD, ANNE on CPAP, PE/DVT on pradaxa, mode pHTN p/w with recent suspected viral illness, palpitations, SOB, decreased appetite, elevated BNP and CRP concerning of acute CHF exacerbation and possible UTI. - Patient Problems (1) Ischemic cardiomyopathy Current Visit: No Status: Chronic Code(s): I25.5 - ISCHEMIC CARDIOMYOPATHY SNOMED Code(s): 525018125 Comment: Acute on Chronic systolic and valvular CHF. lasix 60mg IV BID home was 40mg po qam daily weights strict io telehealth on discharge. continue BB (2) Diabetes Current Visit: No Status: Acute Code(s): E11.9 - TYPE 2 DIABETES MELLITUS WITHOUT COMPLICATIONS SNOMED Code(s): 27720196 Comment: lantus 35U transition to nightly. lispro SS (3) History of pulmonary embolism Current Visit: No Status: Acute Code(s): Z86.711 - PERSONAL HISTORY OF PULMONARY EMBOLISM SNOMED Code(s): 753513797 Comment: continue pradaxa. (4) HLD (hyperlipidemia) Current Visit: No Status: Chronic Code(s): E78.5 - HYPERLIPIDEMIA, UNSPECIFIED SNOMED Code(s): 76195108 Comment: - Continue statin (5) HTN (hypertension) Current Visit: No Status: Chronic Code(s): I10 - ESSENTIAL (PRIMARY) HYPERTENSION SNOMED Code(s): 76988002 Comment: BB, lasix as above. - Controlled (6) History of permanent cardiac pacemaker placement Current Visit: No Status: Chronic Code(s): Z95.0 - PRESENCE OF CARDIAC PACEMAKER SNOMED Code(s): 218781465 (7) Paroxysmal a-fib Current Visit: No Status: Chronic Code(s): I48.0 - PAROXYSMAL ATRIAL FIBRILLATION SNOMED Code(s): 239393898 Comment: - A/V Paced rhythm - Continue metoprolol and pradaxa Status and Disposition: medicine inpatient.
[2017-12-29] MEDS ORDERED: Insulin GLARGINE(*) 1 UNITS UNIT SUBCUT ONE (20:00)
[2017-12-30 05:14] LABS: ABS Basophils 0.1 10^3/ul (0-0.2); ABS Eosinophils 0.1 10^3/ul (0-0.6); ABS Lymphocytes 1.4 10^3/ul (1.0-4.8); ABS Monocytes 0.9 10^3/ul (0-0.8); ABS Neutrophils 9.9 10^3/ul (1.5-7.7); ABS Nucleated RBC 0 10^3/ul; Eosinophil % 1.2 % (0-6); Hematocrit 42 % (35-47); Hemoglobin 13.6 g/dl (12.0-16.0); Lymphocyte % 11.1 % (25-47); Mean Corpuscular HGB Conc 32 g/dl (31-36); Mean Corpuscular Hemoglobin 25 pg (27-31); Mean Corpuscular Volume 77 fL (80-97); Mean Platelet Volume 8.2 um3 (7.4-10.4); Nucleated Red Blood Cells % 0; Platelet Count 293 10^3/ul (150-450); Red Cell Distribution Width 18 % (10.5-15); White Blood Count 12.4 10^3/ul (3.5-10.8)
[2017-12-30 05:30] LABS: EGFR Non-African American 37.4 (>60)
[2017-12-30] MEDS: Insulin LISPRO* 1 UNITS UNIT SUBCUT SCH ×4 (08:46→20:27)
[2017-12-30] MEDS: Magnesium Oxide TAB* 400 MG PO SCH (08:48)
[2017-12-30] MEDS: Metoprolol Succinate XL TAB* 100 MG PO SCH ×2 (08:48→21:27)
[2017-12-30] MEDS: Aspirin EC TAB* 81 MG TAB.EC PO SCH (08:48)
[2017-12-30] MEDS: CMCS Dabigatran CAP(NF) 150 MG CAP PO SCH ×2 (08:49→20:27)
[2017-12-30] MEDS: Docusate CAP* 100 MG PO SCH (08:49)
[2017-12-30] MEDS: Furosemide IV* 10 MG/ML 10 ML VIAL (100 MG) IV SCH (08:52)
[2017-12-30] MEDS: Potassium Chlor TAB* 10 MEQ TAB.ER PO SCH ×2 (10:41→11:58)
--- NOTE | 2017-12-30 11:48 | ED ---
Marino Bradley Angela, scribed for Filemon Gilbert MD on 12/28/17 at 1641 . Respiratory - HPI Summary HPI Summary: This pt is a 62 y/o female presenting to [facility] c/o worsening nonproductive cough and SOB. Pt reports she had the flu last week. Pt notes that today when she was walking she became dizzy and fell on to the kay. Denies head strike or LOC. Pt additionally notes she felt heart palpitations. Denies chest pain, fever, urinary difficulty. Pt is currently on furosemide and Aldactone as diuretics. She is also on Prodexa for PE and Humalog for diabetes. - History of Current Complaint Chief Complaint: EDShortnessOfBreath Stated Complaint: DIZZY/PALPITATIONS/SOB Time Seen by Provider: 12/28/17 16:23 Hx Obtained From: Patient Onset/Duration: Lasting Days, Still Present, Worse Since - today Timing: Constant Current Severity: Severe Pain Intensity: 0 Character: Cough (Nonproductive) Sputum Amount: None Aggravating Factor(s): Nothing Alleviating Factor(s): Nothing Associated Signs and Symptoms: SOB, Edema, Dizziness - Allergy/Home Medications Allergies/Adverse Reactions: Allergies Allergy/AdvReac Type Severity Reaction Status Date / Time bee pollen Allergy Anaphylatic Verified 11/28/17 16:20 Shock bee venom protein (honey bee) Allergy Anaphylatic Verified 11/28/17 16:20 Shock Cephalosporins Allergy Anaphylatic Verified 11/28/17 16:21 Shock diphtheria toxoid,adsorbed Allergy Swelling Verified 11/28/17 16:20 diphtheria toxoid,fluid Allergy Swelling Verified 11/28/17 16:20 diphtheria,pertussis Allergy Swelling Verified 11/28/17 16:20 (acellular),te diphtheria,tetanus,Haem. B Allergy Swelling Verified 11/28/17 16:20 conjugat diphtheria,tetanus,poliomyelitis Allergy Swelling Verified 11/28/17 16:20 va glyburide Allergy Itching Verified 12/28/17 16:17 inositol niacinate Allergy Unknown Verified 11/28/17 16:15 [From Niacin No Flush] Reaction Details Iodine and Iodide Containing Allergy Unknown Verified 11/28/17 16:21 Produc Reaction Details latex Allergy Unknown Verified 11/28/17 16:13 Reaction Details losartan Allergy Unknown Verified 11/28/17 16:24 Reaction Details meperidine Allergy See Comment Verified 11/28/17 16:20 metformin Allergy See Comment Verified 11/28/17 16:12 niacin Allergy Unknown Verified 11/28/17 16:15 Reaction Details NSAIDS (Non-Steroidal Allergy See Comment Verified 11/28/17 16:20 Anti-Inflamma ondansetron Allergy Itching Verified 11/28/17 16:13 Penicillins Allergy Hives/Diff. Verified 11/28/17 16:24 Breathing/I tching propoxyphene Allergy See Comment Verified 11/28/17 16:20 ramipril Allergy Unknown Verified 11/28/17 16:24 Reaction Details sitagliptin Allergy Rash Verified 11/28/17 16:13 Tetracyclines Allergy Hives Verified 11/28/17 16:13 atorvastatin AdvReac Muscle Ache Verified 11/28/17 16:20 Home Medications: Home Medications Furosemide TAB* [Lasix TAB*] 20 mg PO QPM 12/28/17 [History Confirmed 12/28/17] Insulin LISPRO* [HumaLOG*] 5 units SUBCUT AC 12/28/17 [History Confirmed ] PMH/Surg Hx/FS Hx/Imm Hx Endocrine/Hematology History: Reports: Hx Diabetes, Hx Anemia Denies: Hx Thyroid Disease Cardiovascular History: Reports: Hx Angina, Hx Auto Implanted Cardiovert Defib, Hx Congestive Heart Failure, Hx Coronary Artery Disease - STENT, Hx Deep Vein Thrombosis, Hx Hypercholesterolemia, Hx Hypertension, Hx Myocardial Infarction, Hx Pacemaker/ICD, Other Cardiovascular Problems/Disorders - CAD with LVEF less than 20% Respiratory History: Reports: Hx Chronic Obstructive Pulmonary Disease (COPD), Hx Pulmonary Embolism, Hx Sleep Apnea - CPAP, Other Respiratory Problems/ Disorders - chronic shortness of breath Denies: Hx Asthma, Hx Chronic Bronchitis GI History: Reports: Other GI Disorders - periods of chronic diarrhea Denies: Hx Ulcer History: Denies: Hx Renal Disease Musculoskeletal History: Reports: Hx Arthritis - HANDS, RT ANKLE, SHOULDERS Sensory History: Reports: Hx Contacts or Glasses - glasses Denies: Hx Cataracts, Hx Eye Injury, Hx Eye Prosthesis, Hx Glaucoma, Hx Legally Blind, Hx Macular Degeneration, Hx Vision Problem, Hx Deafness, Hx Hearing Aid, Hx Hearing Problem, Other Sensory Impairments Opthamlomology History: Reports: Hx Contacts or Glasses - glasses Denies: Hx Cataracts, Hx Eye Injury, Hx Eye Prosthesis, Hx Glaucoma, Hx Legally Blind, Hx Macular Degeneration, Hx Vision Problem, Other Sensory Impairments Neurological History: Reports: Hx Headaches, Hx Migraine Psychiatric History: Reports: Hx Depression - NO MEDS - Surgical History Surgery Procedure, Year, and Place: 2012 removal of screw in left thumb and trigger release. 2010 PACEMAKER/DEFIB REPLACED [place]. 2005 CARDIAC STENT [place]. 2006 PACEMAKER/DEFIB [place]. 1998 HY[place]ERECTOMY [place]. 1983 & 1985 C -[place]. [place]Y [place]. 1973 T[place]SILECTOMY [place] Hx Anesthesia Reactions: No - STATES SHE GOES INTO CHF EASILY - Immunization History Date of Tetanus Vaccine: 06/2012 Date of Influenza Vaccine: Fall 2013 Infectious Disease History: No Infectious Disease History: Denies: Hx Clostridium Difficile, Hx Hepatitis, Hx Human Immunodeficiency Virus (HIV), Hx of Known/Suspected MRSA, Hx Shingles, Hx Tuberculosis, Hx Known/ Suspected VRE, Hx Known/Suspected VRSA, History Other Infectious Disease, Traveled Outside the in Last 30 Days - Family History Known Family History: Positive: Other - CANCER, ETOH ABUSE - Social History Alcohol Use: Rare Hx Substance Use: No Substance Use Type: Reports: None Hx Tobacco Use: Yes Smoking Status (MU): Former Smoker Type: Cigarettes Amount Used/How Often: 1 PPD, 3 cigarettes/day by the end Length of Time of Smoking/Using Tobacco: PT states during the time she smoked she stopped off and on . Have You Smoked in the Last Year: No Review of Systems Negative: Fever Positive: Palpitations. Negative: Chest Pain Positive: Shortness Of Breath, Cough Negative: other - urinary difficulty Neurological: Other - POS: dizziness All Other Systems Reviewed And Are Negative: Yes Physical Exam - Summary Physical Exam Summary: VITAL SIGNS: Reviewed. GENERAL: Patient is a well-developed and elderly female with some respiratory distress. HEAD AND FACE: No signs of trauma. No ecchymosis, hematomas or skull depressions. No sinus tenderness. EYES: PERRLA, EOMI x 2, No injected conjunctiva, no nystagmus. EARS: Hearing grossly intact. Ear canals and tympanic membranes are within normal limits. MOUTH: Oropharynx within normal limits. NECK: Supple, trachea is midline, no adenopathy, no JVD, no carotid bruit, no c- spine tenderness, neck with full ROM. CHEST: Symmetric, no tenderness at palpation LUNGS: Diminished breath sounds bilaterally. Crackles in the bases of the lungs. CVS: Regular rate and rhythm, S1 and S2 present, no murmurs or gallops appreciated. ABDOMEN: Soft, non-tender. No signs of distention. No rebound no guarding, and no masses palpated. Bowel sounds are normal. EXTREMITIES: FROM in all major joints, no cyanosis or clubbing. Positive bilateral lower extremity 1+ edema. NEURO: Alert and oriented x 3. No acute neurological deficits. Speech is normal and follows commands. SKIN: Dry and warm Triage Information Reviewed: Yes Vital Signs On Initial Exam: Initial Vitals Temp Pulse Resp BP Pulse Ox 97.5 F 95 20 104/59 97 12/28/17 16:06 12/28/17 16:06 12/28/17 16:06 12/28/17 16:06 12/28/17 16:06 Vital Signs Reviewed: Yes Diagnostics - Vital Signs Vital Signs Temp Pulse Resp BP Pulse Ox 12/28/17 16:06 97.5 F 95 20 104/59 97 - Laboratory Result Diagrams: 12/28/17 16:53 12/28/17 16:53 Lab Statement: Any lab studies that have been ordered have been reviewed, and results considered in the medical decision making process. - Radiology Chest XR Xray Interpretation: Positive (See Comments) - IMPRESSION: Mild pulmonary vascular congestion and interstitial edema. Potential associated small LEFT pleural effusion. Dr. Gilbert has reviewed this radiology report. Radiology Interpretation Completed By: Radiologist - EKG 16:25 Cardiac Rate: NL EKG Interpretation: ventricular paced rhythm at 93 bpm. EKG Comparison: No Significant Change - No change from prior EKG on 11/28/17. Disposition - Course Assessment/Plan: This pt is a 62 y/o female presenting to [facility] c/o worsening nonproductive cough and SOB. Pt reports she had the flu last week. Pt notes that today when she was walking she became dizzy and fell on to the kay. Denies head strike or LOC. Pt additionally notes she felt heart palpitations. Denies chest pain, fever, urinary difficulty. Pt is currently on furosemide and Aldactone as diuretics. She is also on Prodexa for PE and Humalog for diabetes. Test results without any significant abnormalities except for WBC of 13.9, creatinine of 1.3, sodium of 131, CRP of 229, BNP is 637. Chest XR: Mild pulmonary vascular congestion and interstitial edema. Potential associated small LEFT pleural effusion. It seems the pt is in congestive heart failure exacerbation. In the ED course the pt was given Lasix. At this point I discussed the test results and findings with Dr. Masterson, hospitalist, who accepted the pt for admission. Pt is hemodynamically stable, alert and oriented x3. - Diagnoses Provider Diagnoses: CHF exacerbation - Physician Notifications Discussed Care Of Patient With: Sammy Masterson Time Discussed With Above Provider: 17:39 Instructed by Provider To: Other - I discussed pt care with Dr. Masterson, hospitalist, who reports he will come see the pt in the ED and consult. Discharge - Sign-Out/Discharge Documenting (check all that apply): Discharge - admit to [facility] - Discharge Plan Condition: Stable Disposition: ADMITTED TO [facility] The documentation as recorded by the Marino hobbs Angela accurately reflects the service I personally performed and the decisions made by me, Filemon Gilbert MD.
[2017-12-30] MEDS: Furosemide TAB* 20 MG PO SCH (11:59)
--- NOTE | 2017-12-30 16:43 | PN ---
Subjective Date of Service: 12/30/17 Interval History: breathing more easy. UCx no growth dizzy after ambulating this AM GRATED [employer] up slightly diuretics decreased. afebrile. Objective Active Medications: Aspirin (Aspirin Ec Tab*) 81 mg PO QAM [facility] Last Admin: 12/30/17 08:48 Dose: 81 mg Dabigatran (Pradaxa Cap(Nf)) 150 mg PO BID [facility] Last Admin: 12/30/17 08:49 Dose: 150 mg Dextrose (D50w Syringe 50 Ml*) 12.5 gm IV PUSH .FOR FS < 60 - SS PRN PRN Reason: FS < 60 Docusate Sodium (Colace Cap*) 100 mg PO DAILY [facility] Last Admin: 12/30/17 08:49 Dose: 100 mg Furosemide (Lasix Tab*) 60 mg PO DAILY [facility] Last Admin: 12/30/17 11:59 Dose: 60 mg Levofloxacin/Dextrose (Levaquin 750 Mg Ivpremix(*)) 750 mg in 150 mls @ 100 mls /hr IVPB Q48H [facility] Insulin Glargine (Lantus(*)) 35 units SUBCUT QPM [facility] Insulin Human Lispro (Humalog*) 0 units SUBCUT ACHS [facility] PRN Reason: Protocol Last Admin: 12/30/17 11:57 Dose: 9 unit Magnesium Oxide (Magox 400 Tab*) 400 mg PO QAM [facility] Last Admin: 12/30/17 08:48 Dose: 400 mg Metoprolol Succinate (Toprol Xl Tab*) 100 mg PO BID [facility] Last Admin: 12/30/17 08:48 Dose: 100 mg Nitroglycerin (Nitroglycerin Tab 0.4 Mg*) 0.4 mg SL DAILY PRN PRN Reason: PAIN - CHEST Polyethylene Glycol/Electrolytes (Miralax*) 17 gm PO DAILY PRN PRN Reason: CONSTIPATION Rosuvastatin Calcium (Crestor (Nf)) 40 mg PO QPM [facility] Last Admin: 12/29/17 17:19 Dose: 40 mg Vital Signs - 8 hr 12/30/17 12/30/17 12/30/17 10:58 12:13 13:55 Temperature 97.9 F 97.6 F 97.8 F Pulse Rate 93 78 Respiratory 18 18 Rate Blood Pressure 134/76 133/59 (mmHg) O2 Sat by Pulse 97 97 Oximetry 12/30/17 15:25 Temperature 97.8 F Pulse Rate 91 Respiratory 20 Rate Blood Pressure 114/61 (mmHg) O2 Sat by Pulse 96 Oximetry Oxygen Devices in Use Now: None, CPAP Appearance: NAD Ears/Nose/Mouth/Throat: NL Teeth, Lips, Gums, Mucous Membranes Moist Neck: NL Appearance and Movements; NL JVP Respiratory: Symmetrical Chest Expansion and Respiratory Effort, Clear to Auscultation Cardiovascular: NL Sounds; No Murmurs; No JVD, RRR Abdominal: NL Sounds; No Tenderness; No Distention, No Hepatosplenomegaly Lymphatic: No Cervical Adenopathy, No Axillary Adenopathy Extremities: No Edema Skin: No Rash or Ulcers Neurological: Alert and Oriented x 3, NL Sensation, NL Muscle Strength and Tone Nutrition: Taking PO's Result Diagrams: 12/30/17 04:48 12/30/17 04:48 Additional Lab and Data: Laboratory Results - last 24 hr 12/29/17 12/30/17 12/30/17 20:23 04:48 04:48 WBC 12.4 H RBC 5.50 H Hgb 13.6 Hct 42 MCV 77 L MCH 25 L MCHC 32 RDW 18 H Plt Count 293 MPV 8.2 Neut % (Auto) 79.7 Lymph % (Auto) 11.1 L Davis % (Auto) 7.3 H Eos % (Auto) 1.2 Baso % (Auto) 0.7 Absolute Neuts (auto) 9.9 H Absolute Lymphs (auto) 1.4 Absolute Monos (auto) 0.9 H Absolute Eos (auto) 0.1 Absolute Basos (auto) 0.1 Absolute Nucleated RBC 0 Nucleated RBC % 0 Sodium 132 L Potassium 3.5 Chloride 89 L Carbon Dioxide 33 H Anion Gap 10 BUN 27 H Creatinine 1.42 H Est GFR ( Amer) 48.0 Est GFR (Non-Af Amer) 37.4 BUN/Creatinine Ratio 19.0 Glucose 163 H POC Glucose (mg/dL) 186 H Calcium 9.1 Magnesium 2.6 12/30/17 12/30/17 12/30/17 07:08 11:25 16:01 WBC RBC Hgb Hct MCV MCH MCHC RDW Plt Count MPV Neut % (Auto) Lymph % (Auto) Davis % (Auto) Eos % (Auto) Baso % (Auto) Absolute Neuts (auto) Absolute Lymphs (auto) Absolute Monos (auto) Absolute Eos (auto) Absolute Basos (auto) Absolute Nucleated RBC Nucleated RBC % Sodium Potassium Chloride Carbon Dioxide Anion Gap BUN Creatinine Est GFR ( Amer) Est GFR (Non-Af Amer) BUN/Creatinine Ratio Glucose POC Glucose (mg/dL) 180 H 270 H 186 H Calcium Magnesium Microbiology and Other Data: Microbiology 12/30/17 04:55 Sputum Gram Stain - Final 12/28/17 21:45 Urine Urine Culture - Final 12/28/17 18:10 Blood Venous Aerobic Blood Culture - Preliminary No Growth Day 1 12/28/17 18:10 Blood Venous Anaerobic Blood Culture - Preliminary No Growth Day 1 12/28/17 16:53 Blood Venous Aerobic Blood Culture - Preliminary No Growth Day 1 12/28/17 16:53 Blood Venous Anaerobic Blood Culture - Preliminary No Growth Day 1 12/28/17 18:04 Nasal Influenza Types A,B Antigen (MAHSA) - Final Specimen received for Influenza A/B Molecular testing Assess/Plan/Problems-Billing Assessment: 62 yo female PMH systolic CHF (EF <20%), moderate MVR, IDDM, COPD, s/p AICD, ANNE on CPAP, PE/DVT on pradaxa, mode pHTN p/w with recent suspected viral illness, palpitations, SOB, decreased appetite, elevated BNP and CRP concerning of acute CHF exacerbation. - Patient Problems (1) Ischemic cardiomyopathy Current Visit: No Status: Chronic Code(s): I25.5 - ISCHEMIC CARDIOMYOPATHY SNOMED Code(s): 123356823 Comment: Acute on Chronic systolic and valvular CHF. stop lasix 60mg IV BID -> lasix 60mg po daily home was 40mg po qam daily weights strict io telehealth on discharge. continue BB (2) Diabetes Current Visit: No Status: Acute Code(s): E11.9 - TYPE 2 DIABETES MELLITUS WITHOUT COMPLICATIONS SNOMED Code(s): 39830407 Comment: lantus 35U transition to nightly. lispro SS (3) History of pulmonary embolism Current Visit: No Status: Acute Code(s): Z86.711 - PERSONAL HISTORY OF PULMONARY EMBOLISM SNOMED Code(s): 571798405 Comment: continue pradaxa. (4) HLD (hyperlipidemia) Current Visit: No Status: Chronic Code(s): E78.5 - HYPERLIPIDEMIA, UNSPECIFIED SNOMED Code(s): 83238712 Comment: - Continue statin (5) HTN (hypertension) Current Visit: No Status: Chronic Code(s): I10 - ESSENTIAL (PRIMARY) HYPERTENSION SNOMED Code(s): 14657451 Comment: naima GUSTAFSON as above. - Controlled (6) History of permanent cardiac pacemaker placement Current Visit: No Status: Chronic Code(s): Z95.0 - PRESENCE OF CARDIAC PACEMAKER SNOMED Code(s): 488520971 (7) Paroxysmal a-fib Current Visit: No Status: Chronic Code(s): I48.0 - PAROXYSMAL ATRIAL FIBRILLATION SNOMED Code(s): 942458068 Comment: - A/V Paced rhythm - Continue metoprolol and pradaxa (8) Shortness of breath Current Visit: Yes Status: Acute Code(s): R06.02 - SHORTNESS OF BREATH SNOMED Code(s): 708372515 Comment: elevated CRP and leukocytosis continue levaquin and diuresis. Status and Disposition: medicine inpatient. d/c likely 12/31
[2017-12-30] MEDS: CMCS Rosuvastatin (NF) 20 MG TAB PO SCH (17:10)
[2017-12-30] MEDS ORDERED: Insulin GLARGINE(*) 1 UNITS UNIT SUBCUT SCH (18:00)
[2017-12-31] MEDS ORDERED: Levofloxacin 750 MG IVPREMIX(* 750 MG/150 ML BAG IVPB SCH
[2017-12-31 05:32] LABS: ABS Basophils 0.1 10^3/ul (0-0.2); ABS Eosinophils 0.2 10^3/ul (0-0.6); ABS Lymphocytes 1.1 10^3/ul (1.0-4.8); ABS Monocytes 0.9 10^3/ul (0-0.8); ABS Neutrophils 8.4 10^3/ul (1.5-7.7); ABS Nucleated RBC 0 10^3/ul; Eosinophil % 1.8 % (0-6); Hematocrit 39 % (35-47); Hemoglobin 12.9 g/dl (12.0-16.0); Lymphocyte % 10.6 % (25-47); Mean Corpuscular HGB Conc 33 g/dl (31-36); Mean Corpuscular Hemoglobin 25 pg (27-31); Mean Corpuscular Volume 76 fL (80-97); Nucleated Red Blood Cells % 0; Platelet Count 275 10^3/ul (150-450); Red Blood Count 5.18 10^6/ul (4.0-5.4); Red Cell Distribution Width 18 % (10.5-15); White Blood Count 10.7 10^3/ul (3.5-10.8)
[2017-12-31 05:47] LABS: EGFR Non-African American 45.8 (>60)
[2017-12-31] MEDS: Insulin LISPRO* 1 UNITS UNIT SUBCUT SCH (07:25)
[2017-12-31 07:29] VITALS: BP 116/63
[2017-12-31] MEDS: Furosemide TAB* 20 MG PO SCH (07:40)
[2017-12-31] MEDS: Magnesium Oxide TAB* 400 MG PO SCH (07:40)
[2017-12-31] MEDS: CMCS Dabigatran CAP(NF) 150 MG CAP PO SCH (07:40)
[2017-12-31] MEDS: Aspirin EC TAB* 81 MG TAB.EC PO SCH (07:40)
[2017-12-31] MEDS: Docusate CAP* 100 MG PO SCH (07:40)
[2017-12-31] MEDS: Metoprolol Succinate XL TAB* 100 MG PO SCH (07:51)
--- NOTE | 2017-12-31 12:37 | DS ---
DISCHARGE SUMMARY: DATE OF ADMISSION: 12/28/17 DATE OF DISCHARGE: 12/31/17 ADMITTING/ATTENDING PROVIDER: Sammy Masterson MD PRIMARY CARE PROVIDER: Kwasi Salcido. OUTPATIENT NONPROFIT FUNDRAISER: Kwasi Vidal. OUTPATIENT SAP BW CONSULTANT: Kwasi Zambrano. CHIEF COMPLAINT: Shortness of breath, feeling unwell generally, cough, recent fevers, chills, dizziness, unable to stand on feet, palpitations, recent flu- like symptoms. PRINCIPAL DIAGNOSES: Acute on chronic systolic and valvular congestive heart failure, exacerbation; likely viral illness. HISTORY OF PRESENT ILLNESS: Kinjal Alcantar is a 62-year-old female with a past history of severe systolic CHF (ejection fraction less than 20% with moderate mitral valve regurgitation, moderate pulmonary hypertension); insulin-dependent diabetes mellitus; CAD status post MIs; DVT, PEs, on Pradaxa; COPD; obstructive sleep apnea, on CPAP; hyperlipidemia; obesity. She presents with general feeling of unwell in the setting of recent flu-like symptoms 10 days prior to admission. She had been having a poor appetite and then got some burning with urination 2 days prior to admission and started to drink more fluids. She has had been more fatigued, sleeping 18 hours a day, had 3-pillow orthopnea, increased sensation of bloating in her stomach and chest, felt constantly dizzy , and thought unsafe to drive or even stand to cook food for herself. She had fevers and chills a week prior. She developed palpitations. Three days prior to admission, she denied any chest pain. She had intermittent headaches, but fevers and chills resolved. Please see H and P for full details. She, in the emergency room, had elevated BNP of 637, procalcitonin of 0.4, and leukocytosis of 13.9, creatinine is stable at 1.31. Her chest x-ray showed mild pulmonary congestion and potential small left pleural effusion with interstitial edema. She was admitted, diuresed 60 IV Lasix b.i.d. Initially, her weight on admission was 107.5 kg and she dropped to 105.7 kg on hospital day #3. Her creatinine frandy slightly to 1.42 and her diuretics were scaled back, she had felt dizzy at the end of her walk, but better than prior and again better on day of discharge. She was given Levaquin for potential COPD versus UTI. Her urinalysis did show 2+ wbc's, 1+ bacteria, but urine culture ultimately did not grow anything. She will have one more day of the Levaquin at home. She never required oxygen supplementation. Given the tenuous state of her severe systolic CHF and mitral valve dysfunction , Palliative Care consult was requested, but unfortunately was unable to see the patient as provider was out in the conference, but recommend following up with Dr. Valera and Dr. Carson, the patient wishes to be fairly independent and may benefit from hospice services if heart function continues to decline. DISCHARGE MEDICATIONS: Include: 1. Aspirin 81 mg daily. 2. Pradaxa 150 mg p.o. b.i.d. 3. Docusate 100 mg p.o. daily (new). 4. Lasix 40 mg in the morning, 20 mg at 3 p.m. (previously had been taking 40 each morning and 20 in the afternoon as needed). 5. Lantus 35 units q.h.s. 6. Humalog 5 units q.a.c. 7. Magnesium oxide 400 mg p.o. q.a.m. 8. Metoprolol succinate 100 mg p.o. b.i.d. 9. Nitroglycerin 0.4 mg sublingual daily p.r.n. 10. Crestor 40 mg p.o. q.p.m. 11. Tylenol with Codeine 1 tab p.o. at bedtime. 12. Levaquin 750 mg 1 tab to be taken on 01/02/18. 13. Spironolactone 50 mg p.o. daily. DIET: Heart healthy, carbohydrate consistent. ACTIVITY LEVEL: No restrictions. FOLLOWUP: Already scheduled for Dr. Gia Carson on 01/06/18; Dr. Colin Bucio, supervisor keymodule assembly, on same day. She was advised to try to get into see Dr. Valera within 1 week of discharge. Reportedly, there had been talk at sometime of doing a mitral valve surgery and if this is the case, it would be a good time to discuss this given her worsened ejection fraction since last time he saw her. Consideration for discussion with hospice and palliative care services as an outpatient if heart function continues to decline. TIME SPENT: On discharge 40 minutes. [id number]/[facility] #: [id number] PAT[place]
== END 2017-12-31 11:31 | disposition home or self-care (01) | DRG 292 ==
LOC: ED 16:04 → MEDTELE 18:20
PROVIDERS: ADMIT Internal Medicine; ATTEND Internal Medicine
DX: I11.0 Hypertensive heart disease with heart failure (principal); N39.0 Urinary tract infection, site not specified; J44.9 Chronic obstructive pulmonary disease, unspecified; R19.7 Diarrhea, unspecified; M19.071 Primary osteoarthritis, right ankle and foot; I25.10 Atherosclerotic heart disease of native coronary artery without angina pectoris; E11.9 Type 2 diabetes mellitus without complications; M19.012 Primary osteoarthritis, left shoulder; M19.011 Primary osteoarthritis, right shoulder; M19.042 Primary osteoarthritis, left hand; M19.041 Primary osteoarthritis, right hand; F32.9 Major depressive disorder, single episode, unspecified; G43.909 Migraine, unspecified, not intractable, without status migrainosus; I27.20 Pulmonary hypertension, unspecified; I34.0 Nonrheumatic mitral (valve) insufficiency; G47.33 Obstructive sleep apnea (adult) (pediatric); E66.9 Obesity, unspecified; I25.5 Ischemic cardiomyopathy; I50.23 Acute on chronic systolic (congestive) heart failure; E78.5 Hyperlipidemia, unspecified; I48.0 Paroxysmal atrial fibrillation; B34.9 Viral infection, unspecified; R14.0 Abdominal distension (gaseous); K59.00 Constipation, unspecified; Z79.82 Long term (current) use of aspirin; Z79.01 Long term (current) use of anticoagulants; Z82.49 Family history of ischemic heart disease and other diseases of the circulatory system; Z80.9 Family history of malignant neoplasm, unspecified; Z83.3 Family history of diabetes mellitus; Z86.711 Personal history of pulmonary embolism; Z88.1 Allergy status to other antibiotic agents; Z88.7 Allergy status to serum and vaccine; Z91.030 Bee allergy status; Z91.040 Latex allergy status; Z88.0 Allergy status to penicillin; Z88.8 Allergy status to other drugs, medicaments and biological substances; Z95.810 Presence of automatic (implantable) cardiac defibrillator; I25.2 Old myocardial infarction; Z86.718 Personal history of other venous thrombosis and embolism; Z95.5 Presence of coronary angioplasty implant and graft; Z81.1 Family history of alcohol abuse and dependence; Z87.891 Personal history of nicotine dependence; Z72.89 Other problems related to lifestyle; Z90.710 Acquired absence of both cervix and uterus; Z79.4 Long term (current) use of insulin; Z68.35 Body mass index [BMI] 35.0-35.9, adult
CPT/HCPCS: 36415; 36600; 71045; 80048; 80053; 81003; 81015; 82550; 82553; 82803; 83605; 83735; 83880; 84145; 84484; 85025; 85610; 85730; 86140; 87040; 87070; 87086; 87205; 87502; 93005; 94660; 99285; A9270-GY; G8978-GP-CH; G8979-GP-CH; G8980-GP-CH; J0696; J1940

== ENCOUNTER 2018-06-07 22:14 | Emergency (ER) | payer MEDICARE, OTHER ==
--- NOTE | 2018-06-07 22:44 | ED ---
HPI Diabetic - HPI Summary HPI Summary: Pt is a 62 y/o female who presents to the ED c/o diabetic problem. She states at 21:15 she accidentally took 25 units of Humalog instead of 25 units of Lantus. Pt ate one piece of chocolate right after. She only takes 8 mg of Humalog normally. Pt called Kwasi who advised her to go the ED. PMHx DE. at 21 :27 her blood sugar was 234. She is now asymptomatic. - History Of Current Complaint Chief Complaint: EDDiabeticProb Time Seen by Provider: 06/07/18 22:33 Hx Obtained From: Patient Onset/Duration: Sudden Onset, Lasting Hours - 21:15, Still Present Character: Alert Aggravating: Other - Accidentally took Humalog instead of Lantus Alleviating: Food - Chocolate Associated Signs & Symptoms: Negative Related History: Controlled, DM II - Allergies/Home Medications Allergies/Adverse Reactions: Allergies Allergy/AdvReac Type Severity Reaction Status Date / Time bee pollen Allergy Anaphylatic Verified 06/07/18 22:21 Shock bee venom protein (honey bee) Allergy Anaphylatic Verified 06/07/18 22:21 Shock Cephalosporins Allergy Anaphylatic Verified 06/07/18 22:21 Shock diphtheria toxoid,adsorbed Allergy Swelling Verified 06/07/18 22:21 diphtheria toxoid,fluid Allergy Swelling Verified 06/07/18 22:21 diphtheria,pertussis Allergy Swelling Verified 06/07/18 22:21 (acellular),te diphtheria,tetanus,Haem. B Allergy Swelling Verified 06/07/18 22:21 conjugat diphtheria,tetanus,poliomyelitis Allergy Swelling Verified 06/07/18 22:21 va glyburide Allergy Itching Verified 06/07/18 22:21 inositol niacinate Allergy Unknown Verified 06/07/18 22:21 [From Niacin No Flush] Reaction Details Iodine and Iodide Containing Allergy Unknown Verified 06/07/18 22:21 Produc Reaction Details latex Allergy Unknown Verified 06/07/18 22:21 Reaction Details losartan Allergy Unknown Verified 06/07/18 22:21 Reaction Details meperidine Allergy See Comment Verified 06/07/18 22:21 metformin Allergy See Comment Verified 06/07/18 22:21 niacin Allergy Unknown Verified 06/07/18 22:21 Reaction Details NSAIDS (Non-Steroidal Allergy See Comment Verified 06/07/18 22:21 Anti-Inflamma ondansetron Allergy Itching Verified 06/07/18 22:21 Penicillins Allergy Hives/Diff. Verified 06/07/18 22:21 Breathing/I tching propoxyphene Allergy See Comment Verified 06/07/18 22:21 ramipril Allergy Unknown Verified 06/07/18 22:21 Reaction Details sitagliptin Allergy Rash Verified 06/07/18 22:21 Tetracyclines Allergy Hives Verified 06/07/18 22:21 atorvastatin AdvReac Muscle Ache Verified 06/07/18 22:21 PMH/Surg Hx/FS Hx/Imm Hx Endocrine/Hematology History: Reports: Hx Diabetes, Hx Anemia Denies: Hx Thyroid Disease Cardiovascular History: Reports: Hx Angina, Hx Auto Implanted Cardiovert Defib, Hx Congestive Heart Failure, Hx Coronary Artery Disease - STENT, Hx Deep Vein Thrombosis, Hx Hypercholesterolemia, Hx Hypertension, Hx Myocardial Infarction, Hx Pacemaker/ICD, Other Cardiovascular Problems/Disorders - CAD with LVEF less than 20% Respiratory History: Reports: Hx Chronic Obstructive Pulmonary Disease (COPD), Hx Pulmonary Embolism, Hx Sleep Apnea - CPAP, Other Respiratory Problems/ Disorders - chronic shortness of breath Denies: Hx Asthma, Hx Chronic Bronchitis GI History: Reports: Other GI Disorders - periods of chronic diarrhea Denies: Hx Ulcer History: Denies: Hx Renal Disease Musculoskeletal History: Reports: Hx Arthritis - HANDS, RT ANKLE, SHOULDERS Sensory History: Reports: Hx Contacts or Glasses - glasses Denies: Hx Cataracts, Hx Eye Injury, Hx Eye Prosthesis, Hx Glaucoma, Hx Legally Blind, Hx Macular Degeneration, Hx Vision Problem, Hx Deafness, Hx Hearing Aid, Hx Hearing Problem, Other Sensory Impairments Opthamlomology History: Reports: Hx Contacts or Glasses - glasses Denies: Hx Cataracts, Hx Eye Injury, Hx Eye Prosthesis, Hx Glaucoma, Hx Legally Blind, Hx Macular Degeneration, Hx Vision Problem, Other Sensory Impairments Neurological History: Reports: Hx Headaches, Hx Migraine Psychiatric History: Reports: Hx Depression - NO MEDS - Surgical History Surgery Procedure, Year, and Place: 2012 removal of screw in left thumb and trigger release. 2010 PACEMAKER/DEFIB REPLACED [place]. 2006 CARDIAC STENT [place]. 2007 PACEMAKER/DEFIB [place]. 1998 [place]STERECTOMY [place]. 1983 & 1985 C [place]SE[place]. 1976 [place]OMY [place]. 1974 TONSILECTOMY [place] Hx Anesthesia Reactions: No - STATES SHE GOES INTO CHF EASILY - Immunization History Date of Tetanus Vaccine: 06/2012 Date of Influenza Vaccine: Fall 2013 Infectious Disease History: No Infectious Disease History: Denies: Hx Clostridium Difficile, Hx Hepatitis, Hx Human Immunodeficiency Virus (HIV), Hx of Known/Suspected MRSA, Hx Shingles, Hx Tuberculosis, Hx Known/ Suspected VRE, Hx Known/Suspected VRSA, History Other Infectious Disease, Traveled Outside the [place] in Last 30 Days - Family History Known Family History: Positive: Other - CANCER, ETOH ABUSE - Social History Alcohol Use: Rare Hx Substance Use: No Substance Use Type: Reports: None Hx Tobacco Use: Yes Smoking Status (MU): Former Smoker Type: Cigarettes Amount Used/How Often: 1 PPD, 3 cigarettes/day by the end Length of Time of Smoking/Using Tobacco: PT states during the time she smoked she stopped off and on . Have You Smoked in the Last Year: No Review of Systems Negative: Fever Negative: Vomiting All Other Systems Reviewed And Are Negative: Yes Physical Exam - Summary Physical Exam Summary: Appearance: Well appearing, no pain distress Skin: warm, dry, reflects adequate perfusion, numerous scars on legs Head/face: normal Eyes: EOMI, MAXIM ENT: mucous membranes moist Neck: supple, non-tender Respiratory: CTA, breath sounds present Cardiovascular: RRR, pulses symmetrical, trace LE edema Abdomen: non-tender, soft Bowel Sounds: present Musculoskeletal: normal, strength/ROM intact Neuro: normal, sensory motor intact, A&Ox3 Triage Information Reviewed: Yes Vital Signs On Initial Exam: Initial Vitals Temp Pulse Resp BP Pulse Ox 98.1 F 75 18 132/64 97 06/07/18 22:18 06/07/18 22:18 06/07/18 22:18 06/07/18 22:18 06/07/18 22:18 Vital Signs Reviewed: Yes Diagnostics - Vital Signs Vital Signs Temp Pulse Resp BP Pulse Ox 06/07/18 22:18 98.1 F 75 18 132/64 97 - Laboratory Lab Statement: Any lab studies that have been ordered have been reviewed, and results considered in the medical decision making process. Diabetic Course/Dx - Course Course Of Treatment: Patient presents after mistakenly given herself 25 units of regular insulin. She was supposed to take 8-10 units and inadvertently gave herself short acting versus her Lantus. She never drive. Sugar below 100 here and ate several small meals. She is observed for over 3 hours without any ill effect. She wishes to go home and eat and check her sugars frequently. She does have somebody with her that can observe her. - Diagnoses Differential Dx: Hypoglycemia Provider Diagnoses: Accidental medication error Discharge - Sign-Out/Discharge Documenting (check all that apply): Patient Departure - Discharge - Discharge Plan Condition: Stable Disposition: HOME Patient Education Materials: Insulin Regular (By injection) Referrals: Gia Carson MD [Primary Care Provider] - Additional Instructions: Check your blood sugar every half hour for the next several hours. Eat fatty meal on return home. Return if worse, new symptoms, or other concerns.Call in the morning to schedule follow up with your doctor. - Billing Disposition and Condition Condition: STABLE Disposition: Home - Attestation Statements Document Initiated by Von: Yes Documenting Scribe: Meagan Francisco Provider For Whom Von is Documenting (Include Credential): Stalin Gore MD Scribe Attestation: Meagan Bradley, scribed for Stalin Gore MD on 06/08/18 at 0156. Scribe Documentation Reviewed: Yes Provider Attestation: The documentation as recorded by the Meagan hobbs accurately reflects the service I personally performed and the decisions made by , Stalin Gore MD
[2018-06-08 01:57] VITALS: BP 122/73
== END 2018-06-08 01:56 | disposition home or self-care (01) ==
LOC: ED 22:14
DX: T38.3X1A Poisoning by insulin and oral hypoglycemic [antidiabetic] drugs, accidental (unintentional), initial encounter (principal); Y92.9 Unspecified place or not applicable; I25.119 Atherosclerotic heart disease of native coronary artery with unspecified angina pectoris; I11.0 Hypertensive heart disease with heart failure; Z95.5 Presence of coronary angioplasty implant and graft; Z95.810 Presence of automatic (implantable) cardiac defibrillator; Z88.0 Allergy status to penicillin; Z88.8 Allergy status to other drugs, medicaments and biological substances; Z88.6 Allergy status to analgesic agent; Z88.1 Allergy status to other antibiotic agents; Z91.030 Bee allergy status; Z91.040 Latex allergy status; Z87.891 Personal history of nicotine dependence
CPT/HCPCS: 99282

== ENCOUNTER 2018-08-17 17:01 | Emergency (ER) | payer MEDICARE, OTHER ==
[2018-08-17] MEDS ORDERED: Furosemide IV* 10 MG/ML 10 ML VIAL (100 MG) IV ONE (18:55)
--- NOTE | 2018-08-17 18:56 | ED ---
HPI Cardiac - HPI Summary HPI Summary: Pt is a 62 y/o female who presents to the ED c/o chest heaviness. She c/o SOB, LE edema, and chest heaviness. Pt states her sx were very bad last night, and she had to sleep with 2 pillows upright and her Cpap machine. Pt is on blood thinners. She has a pacemaker defibrillator. PMHx DM, HTN, IA, CHF. - History of Current Complaint Chief Complaint: EDChestPainROMI Stated Complaint: CHEST PAIN Time Seen by Provider: 08/17/18 18:17 Hx Obtained From: Patient Onset/Duration: Started Days Ago - 2, Still Present Timing: Constant Chest Pain Location: Diffuse Chest Pain Radiates: No Character: Heaviness Aggravating Factor(s): Deep Breaths Alleviating Factor(s): Upright Position Associated Signs and Symptoms: Positive: Shortness of Breath, Calf Pain/Swelling Related History: Similar Episode/Dx as: - CHF - Additional Pertinent History Primary Care Physician: ALEXX - Allergy/Home Medications Allergies/Adverse Reactions: Allergies Allergy/AdvReac Type Severity Reaction Status Date / Time bee pollen Allergy Anaphylatic Verified 06/07/18 22:21 Shock bee venom protein (honey bee) Allergy Anaphylatic Verified 06/07/18 22:21 Shock Cephalosporins Allergy Anaphylatic Verified 06/07/18 22:21 Shock cobicistat [From Genvoya] Allergy Hives Verified 07/11/18 18:25 diphtheria toxoid,adsorbed Allergy Swelling Verified 06/07/18 22:21 diphtheria toxoid,fluid Allergy Swelling Verified 06/07/18 22:21 diphtheria,pertussis Allergy Swelling Verified 06/07/18 22:21 (acellular),te diphtheria,tetanus,Haem. B Allergy Swelling Verified 06/07/18 22:21 conjugat diphtheria,tetanus,poliomyelitis Allergy Swelling Verified 06/07/18 22:21 va elvitegravir [From Genvoya] Allergy Hives Verified 07/11/18 18:25 emtricitabine [From Genvoya] Allergy Hives Verified 07/11/18 18:25 glyburide Allergy Itching Verified 06/07/18 22:21 inositol niacinate Allergy Unknown Verified 06/07/18 22:21 [From Niacin No Flush] Reaction Details insulin glargine Allergy Hives Verified 07/11/18 18:25 [From Basaglar KwikPen U-100 Insulin] Iodine and Iodide Containing Allergy Unknown Verified 06/07/18 22:21 Produc Reaction Details latex Allergy Unknown Verified 06/07/18 22:21 Reaction Details liraglutide [From Victoza] Allergy Hives Verified 07/11/18 18:25 losartan Allergy Unknown Verified 06/07/18 22:21 Reaction Details meperidine Allergy See Comment Verified 06/07/18 22:21 metformin Allergy See Comment Verified 06/07/18 22:21 niacin Allergy Unknown Verified 06/07/18 22:21 Reaction Details NSAIDS (Non-Steroidal Allergy See Comment Verified 06/07/18 22:21 Anti-Inflamma ondansetron Allergy Itching Verified 06/07/18 22:21 Penicillins Allergy Hives/Diff. Verified 06/07/18 22:21 Breathing/I tching propoxyphene Allergy See Comment Verified 06/07/18 22:21 ramipril Allergy Unknown Verified 06/07/18 22:21 Reaction Details sitagliptin Allergy Rash Verified 06/07/18 22:21 tenofovir [From Genvoya] Allergy Hives Verified 07/11/18 18:25 Tetracyclines Allergy Hives Verified 06/07/18 22:21 atorvastatin AdvReac Muscle Ache Verified 06/07/18 22:21 Home Medications: Home Medications Levothyroxine TAB* [Synthroid 25 MCG TAB*] 25 mcg PO QAM 08/17/18 [History Confirmed 08/17/18] Metoprolol Succinate XL TAB* [Toprol XL TAB*] 50 mg PO QPM 08/17/18 [History Confirmed 08/17/18] Metoprolol Succinate XL TAB* [Toprol XL TAB*] 100 mg PO QAM 08/17/18 [History Confirmed 08/17/18] PMH/Surg Hx/FS Hx/Imm Hx Endocrine/Hematology History: Reports: Hx Diabetes, Hx Anemia Denies: Hx Thyroid Disease Cardiovascular History: Reports: Hx Angina, Hx Auto Implanted Cardiovert Defib, Hx Congestive Heart Failure, Hx Coronary Artery Disease - STENT, Hx Deep Vein Thrombosis, Hx Hypercholesterolemia, Hx Hypertension, Hx Myocardial Infarction, Hx Pacemaker/ICD, Other Cardiovascular Problems/Disorders - CAD with LVEF less than 20% Respiratory History: Reports: Hx Chronic Obstructive Pulmonary Disease (COPD), Hx Pulmonary Embolism, Hx Sleep Apnea - CPAP, Other Respiratory Problems/ Disorders - chronic shortness of breath Denies: Hx Asthma, Hx Chronic Bronchitis GI History: Reports: Other GI Disorders - periods of chronic diarrhea Denies: Hx Ulcer History: Denies: Hx Renal Disease Musculoskeletal History: Reports: Hx Arthritis - HANDS, RT ANKLE, SHOULDERS Sensory History: Denies: Hx Cataracts, Hx Contacts or Glasses, Hx Eye Injury, Hx Eye Prosthesis, Hx Glaucoma, Hx Legally Blind, Hx Macular Degeneration, Hx Vision Problem, Hx Deafness, Hx Hearing Aid, Hx Hearing Problem, Other Sensory Impairments Opthamlomology History: Denies: Hx Cataracts, Hx Contacts or Glasses, Hx Eye Injury, Hx Eye Prosthesis, Hx Glaucoma, Hx Legally Blind, Hx Macular Degeneration, Hx Vision Problem, Other Sensory Impairments Neurological History: Reports: Hx Headaches, Hx Migraine Psychiatric History: Reports: Hx Depression - NO MEDS - Surgical History Surgery Procedure, Year, and Place: 2012 removal of screw in left thumb and trigger release. 2010 PACEMAKER/DEFIB REPLACED [place]. 2005 CARDIAC STENT [place]. 2006 PACEMAKER/DEFIB [place]. 1998 [place]ERECTOMY [place]. 1983 & 1985 C -SE[place]. 1976 [place]Y [place]. 1973 TONSILECTOMY [facility] Anesthesia Reactions: No - STATES SHE GOES INTO CHF EASILY - Immunization History Date of Tetanus Vaccine: 06/2012 Date of Influenza Vaccine: Fall 2013 Infectious Disease History: No Infectious Disease History: Denies: Hx Clostridium Difficile, Hx Hepatitis, Hx Human Immunodeficiency Virus (HIV), Hx of Known/Suspected MRSA, Hx Shingles, Hx Tuberculosis, Hx Known/ Suspected VRE, Hx Known/Suspected VRSA, History Other Infectious Disease, Traveled Outside the in Last 30 Days - Family History Known Family History: Positive: Other - CANCER, ETOH ABUSE - Social History Alcohol Use: None Hx Substance Use: No Substance Use Type: Reports: None Hx Tobacco Use: Yes Smoking Status (MU): Former Smoker Type: Cigarettes Amount Used/How Often: 1 PPD, 3 cigarettes/day by the end Length of Time of Smoking/Using Tobacco: PT states during the time she smoked she stopped off and on . Have You Smoked in the Last Year: No Review of Systems Positive: Other - chest heaviness Positive: Shortness Of Breath Positive: Edema All Other Systems Reviewed And Are Negative: Yes Physical Exam - Summary Physical Exam Summary: Appearance: Well appearing, no pain distress Skin: warm, dry, reflects adequate perfusion Head/face: normal Eyes: EOMI, MAXIM ENT: normal Neck: supple, non-tender Respiratory: CTA, breath sounds present Cardiovascular: RRR, pulses symmetrical, bilateral pedal edema Abdomen: non-tender, soft Musculoskeletal: strength/ROM intact, bilateral basal crepitance Neuro: normal, sensory motor intact, A&Ox3 Triage Information Reviewed: Yes Vital Signs Reviewed: Yes Diagnostics - Laboratory Lab Results: Lab Results 08/17/18 Range/Units 18:33 POC Glucose (mg/dL) 185 H (70-100) mg/dL Lab Statement: Any lab studies that have been ordered have been reviewed, and results considered in the medical decision making process. - EKG 17:10 Cardiac Rate: Other Rate - Paced rhythm - 75 bpm EKG Rhythm: Sinus Rhythm Disposition - Course Course Of Treatment: Pt is a 62 y/o female who presents to the ED c/o chest heaviness. She c/o SOB, LE edema, and chest heaviness. Pt states her sx were very bad last night, and she had to sleep with 2 pillows upright and her Cpap machine. Pt is on blood thinners. She has a pacemaker defibrillator. PMHx DM, HTN, IA, CHF. A physical exam revealed bilateral pedal edema and bilateral basal crepitance. An EKG revealed pace rhythm of 75 bpm. In the course pt was given Lasix IV. Final dx are chest pain and ruled out myocardial infarction. Pt will be signed out to Dr. Nguyen, pending CXR, bloodwork, and disposition. - Differential Dx - Cardiopulmonary Differential Diagnoses - Cardiopulmonary: Acute Coronary, CAD, CHF - Diagnoses Provider Diagnoses: Chest pain, Ruled out for myocardial infarction Discharge - Sign-Out/Discharge Documenting (check all that apply): Sign-Out Patient Signing out patient TO: Basil Nguyen - Discharge Plan Referrals: Gia Carson MD [Primary Care Provider] - - Attestation Statements Document Initiated by Scribe: Yes Documenting Scribe: Meagan Francisco Provider For Whom Von is Documenting (Include Credential): Genaro Combs MD Scribe Attestation: Meagan Bradley, scribed for Genaro Combs MD on 08/17/18 at 1905. Scribe Documentation Reviewed: Yes Provider Attestation: The documentation as recorded by the scribMeagan little accurately reflects the service I personally performed and the decisions made by me, Genaro Combs MD Status of Scribe Document: Viewed
[2018-08-17 19:27] LABS: ABS Basophils 0.1 10^3/ul (0-0.2); ABS Eosinophils 0.1 10^3/ul (0-0.6); ABS Lymphocytes 1.4 10^3/ul (1.0-4.8); ABS Monocytes 0.5 10^3/ul (0-0.8); ABS Neutrophils 5.2 10^3/ul (1.5-7.7); ABS Nucleated RBC 0 10^3/ul; Hematocrit 41 % (35-47); Lymphocyte % 19.3 %; Mean Corpuscular HGB Conc 32 g/dl (31-36); Mean Corpuscular Hemoglobin 25 pg (27-31); Mean Corpuscular Volume 79 fL (80-97); Mean Platelet Volume 8.4 fL (7.4-10.4); Nucleated Red Blood Cells % 0; Platelet Count 229 10^3/ul (150-450); Red Blood Count 5.21 10^6/ul (4.00-5.40); Red Cell Distribution Width 21 % (10.5-15); White Blood Count 7.2 10^3/ul (3.5-10.8)
[2018-08-17 19:36] LABS: Activated Partial Thrombo Time 49.1 seconds (26.0-36.3); INR 1.43 (0.77-1.02)
[2018-08-17 19:44] LABS: Albumin 3.7 g/dL (3.2-5.2); Albumin/Globulin Ratio 1.1 (1-3); BUN/Creatinine Ratio 20.5 (8-20); Calcium 9.2 mg/dL (8.6-10.3); EGFR African American 40.6 (>60); EGFR Non-African American 33.5 (>60); Globulin 3.4 g/dL (2-4); Potassium 4.1 mmol/L (3.5-5.0); Total Bilirubin 0.6 mg/dL (0.2-1.0); Total Protein 7.1 g/dL (6.4-8.9)
[2018-08-17 19:45] LABS: Troponin I 0.01 ng/mL (<0.04)
--- NOTE | 2018-08-17 19:53 | ED ---
Progress - Progress Note Progress Note: Pt was signed out by Dr. Combs to Dr. Nguyen, awaiting CXR results and bloodwork. - EKG/XRAY/CT XRAY: chest Xray Comments: no acute pathology Re-Evaluation - Re-Evaluation First Eval Re-Evaluation Time: 21:11 Change: Improved Comment: Patient says she is feeling better and has diuresed several time in the ED, after being given Lasix by Dr. Combs. The patient would like to go home. Course/Dx - Course Course Of Treatment: Pt's CXR showed no acute pathology, pending official radiology report. Test results showed no significant abnormalities. The patient will be discharged with follow up from Dr. Carson. The patient is agreeable with this plan. - Diagnoses Provider Diagnoses: Chest pain, Ruled out for myocardial infarction, CHF (congestive heart failure) Discharge - Sign-Out/Discharge Documenting (check all that apply): Patient Departure - discharge, Receiving Sign-Out Receiving patient FROM: Genaro Combs - Discharge Plan Condition: Stable Disposition: HOME Patient Education Materials: Heart Failure (ED) Referrals: Gia Carson MD [Primary Care Provider] - Additional Instructions: Go ahead and take your extra evening lasix over the next few night. You should be ok tonight with the IV lasix we gave you here. Monitor your weight and followup with your doctor as planned Wednesday. - Billing Disposition and Condition Condition: STABLE Disposition: Home - Attestation Statements Document Initiated by Von: Yes Documenting Scribe: Flakito Whitt Provider For Whom Von is Documenting (Include Credential): Basil Nguyen MD Scribe Attestation: Flakito Bradley, charlesed for Basil Nguyen MD on 08/18/18 at 0346. Scribe Documentation Reviewed: Yes Provider Attestation: The documentation as recorded by the Flakito hobbs accurately reflects the service I personally performed and the decisions made by me, Basil Nguyen MD Status of Scribanabel Document: Viewed
[2018-08-17 19:54] LABS: Urine Appearance Clear; Urine Bacteria Absent (Absent); Urine Bilirubin Negative (Negative); Urine Blood 1+ (Negative); Urine Color Yellow; Urine Glucose Negative (Negative); Urine Ketones Negative (Negative); Urine Nitrite Negative (Negative); Urine Protein Negative (Negative); Urine Red Blood Cell Absent (Absent); Urine Specific Gravity 1.012 (1.010-1.030); Urine Squamous Epithelial Cell Present (Absent); Urine Urobilinogen Negative (Negative); Urine White Blood Cell Trace(0-5/hpf) (Absent)
[2018-08-17 21:23] VITALS: BP 119/74
== END 2018-08-17 21:22 | disposition home or self-care (01) ==
LOC: ED 17:01
DX: R07.9 Chest pain, unspecified (principal); I50.9 Heart failure, unspecified; R06.02 Shortness of breath; R60.0 Localized edema; I25.2 Old myocardial infarction; Z95.0 Presence of cardiac pacemaker; Z91.040 Latex allergy status; Z88.0 Allergy status to penicillin; Z91.030 Bee allergy status; E11.9 Type 2 diabetes mellitus without complications; I25.10 Atherosclerotic heart disease of native coronary artery without angina pectoris; Z95.5 Presence of coronary angioplasty implant and graft; Z86.718 Personal history of other venous thrombosis and embolism; Z87.891 Personal history of nicotine dependence
CPT/HCPCS: 36415; 71045; 80053; 81003; 81015; 83605; 83880; 84484; 85025; 85610; 85730; 87086; 93005; 99283; J1940

== ENCOUNTER 2018-12-15 12:29 | Observation (INO) | payer MEDICARE ==
--- NOTE | 2018-12-15 14:19 | ED ---
Syncope/Near Syncope - HPI Summary HPI Summary: This pt is a 63 y/o female presenting to [facility] c/o lightheadedness and dizziness upon standing up. Pt reports she was dx influenza on 12/06 and was prescribed Tamiflu and Zpack. She notes that since then she has been feeling weak. Today she notes dizziness feeling like passing out upon standing up. Denies LOC. Pt also states chest pain that began this morning, SOB upon exertion , nausea. Denies fever, chills, edema in LE. She reports she has been eating and drinking well. Ejection fraction of 20%. Denies tobacco, drug, alcohol use. - History Of Current Complaint Chief Complaint: EDWeakness Time Seen by Provider: 12/15/18 14:07 Hx Obtained From: Patient Onset/Duration: Lasting Days, Still Present Timing: Days Activity At Onset: Other - upon standing up Associated Head Trauma: No Aggravating Factor(s): Nothing Alleviating Factor(s): Nothing Associated Signs And Symptoms: Chest Pain, Dizzy, Pain - chest pain, Shortness Of Breath - Allergies/Home Medications Allergies/Adverse Reactions: Allergies Allergy/AdvReac Type Severity Reaction Status Date / Time bee pollen Allergy Anaphylatic Verified 06/07/18 22:21 Shock bee venom protein (honey bee) Allergy Anaphylatic Verified 06/07/18 22:21 Shock cephalexin [From Keflex] Allergy Anaphylatic Verified 12/15/18 12:31 Shock Cephalosporins Allergy Anaphylatic Verified 06/07/18 22:21 Shock cobicistat [From Genvoya] Allergy Hives Verified 07/11/18 18:25 diphtheria toxoid,adsorbed Allergy Swelling Verified 06/07/18 22:21 diphtheria toxoid,fluid Allergy Swelling Verified 06/07/18 22:21 diphtheria,pertussis Allergy Swelling Verified 06/07/18 22:21 (acellular),te diphtheria,tetanus,Haem. B Allergy Swelling Verified 06/07/18 22:21 conjugat diphtheria,tetanus,poliomyelitis Allergy Swelling Verified 06/07/18 22:21 va elvitegravir [From Genvoya] Allergy Hives Verified 07/11/18 18:25 emtricitabine [From Genvoya] Allergy Hives Verified 07/11/18 18:25 glyburide Allergy Itching Verified 06/07/18 22:21 inositol niacinate Allergy Unknown Verified 06/07/18 22:21 [From Niacin No Flush] Reaction Details insulin glargine Allergy Hives Verified 07/11/18 18:25 [From Basaglar KwikPen U-100 Insulin] Iodine and Iodide Containing Allergy Unknown Verified 06/07/18 22:21 Produc Reaction Details latex Allergy Unknown Verified 06/07/18 22:21 Reaction Details liraglutide [From Victoza] Allergy Hives Verified 07/11/18 18:25 losartan Allergy Unknown Verified 06/07/18 22:21 Reaction Details meclizine [From Antivert] Allergy See Comment Verified 12/15/18 17:41 meperidine Allergy See Comment Verified 06/07/18 22:21 metformin Allergy See Comment Verified 06/07/18 22:21 niacin Allergy Unknown Verified 06/07/18 22:21 Reaction Details NSAIDS (Non-Steroidal Allergy See Comment Verified 06/07/18 22:21 Anti-Inflamma ondansetron Allergy Itching Verified 06/07/18 22:21 Penicillins Allergy Hives/Diff. Verified 06/07/18 22:21 Breathing/I tching propoxyphene Allergy See Comment Verified 06/07/18 22:21 ramipril Allergy Unknown Verified 06/07/18 22:21 Reaction Details sitagliptin Allergy Rash Verified 06/07/18 22:21 tenofovir [From Genvoya] Allergy Hives Verified 07/11/18 18:25 Tetracyclines Allergy Hives Verified 06/07/18 22:21 atorvastatin AdvReac Muscle Ache Verified 06/07/18 22:21 PMH/Surg Hx/FS Hx/Imm Hx Endocrine/Hematology History: Reports: Hx Diabetes, Hx Anemia Denies: Hx Thyroid Disease Cardiovascular History: Reports: Hx Angina, Hx Auto Implanted Cardiovert Defib, Hx Congestive Heart Failure, Hx Coronary Artery Disease - STENT, Hx Deep Vein Thrombosis, Hx Hypercholesterolemia, Hx Hypertension, Hx Myocardial Infarction, Hx Pacemaker/ICD, Other Cardiovascular Problems/Disorders - CAD with LVEF less than 20% Respiratory History: Reports: Hx Chronic Obstructive Pulmonary Disease (COPD), Hx Pulmonary Embolism, Hx Sleep Apnea - CPAP, Other Respiratory Problems/ Disorders - chronic shortness of breath Denies: Hx Asthma, Hx Chronic Bronchitis GI History: Reports: Other GI Disorders - periods of chronic diarrhea Denies: Hx Ulcer History: Denies: Hx Renal Disease Musculoskeletal History: Reports: Hx Arthritis - HANDS, RT ANKLE, SHOULDERS Sensory History: Denies: Hx Cataracts, Hx Contacts or Glasses, Hx Eye Injury, Hx Eye Prosthesis, Hx Glaucoma, Hx Legally Blind, Hx Macular Degeneration, Hx Vision Problem, Hx Deafness, Hx Hearing Aid, Hx Hearing Problem, Other Sensory Impairments Opthamlomology History: Denies: Hx Cataracts, Hx Contacts or Glasses, Hx Eye Injury, Hx Eye Prosthesis, Hx Glaucoma, Hx Legally Blind, Hx Macular Degeneration, Hx Vision Problem, Other Sensory Impairments Neurological History: Reports: Hx Headaches, Hx Migraine Psychiatric History: Reports: Hx Depression - NO MEDS - Surgical History Surgery Procedure, Year, and Place: 2012 removal of screw in left thumb and trigger release. 2010 PACEMAKER/DEFIB REPLACED [place]. 2005 CARDIAC STENT [place]. 2006 PACEMAKER/DEFIB [place]. 1998 HYSTERECTOMY [place]. 1983 & 1985 C -SE[place]. 1976 [place]CTOMY [place]. 1973 TONSILECTOMY [place] Hx Anesthesia Reactions: No - STATES SHE GOES INTO CHF EASILY - Immunization History Date of Tetanus Vaccine: 06/2012 Date of Influenza Vaccine: Fall 2013 Infectious Disease History: No Infectious Disease History: Denies: Hx Clostridium Difficile, Hx Hepatitis, Hx Human Immunodeficiency Virus (HIV), Hx of Known/Suspected MRSA, Hx Shingles, Hx Tuberculosis, Hx Known/ Suspected VRE, Hx Known/Suspected VRSA, History Other Infectious Disease, Traveled Outside the in Last 30 Days - Family History Known Family History: Positive: Other - CANCER, ETOH ABUSE - Social History Alcohol Use: None Hx Substance Use: No Substance Use Type: Reports: None Hx Tobacco Use: Yes Smoking Status (MU): Former Smoker Type: Cigarettes Amount Used/How Often: 1 PPD, 3 cigarettes/day by the end Length of Time of Smoking/Using Tobacco: PT states during the time she smoked she stopped off and on . Have You Smoked in the Last Year: No Review of Systems Constitutional: Other - POS: normal appetite Negative: Fever, Chills Positive: Chest Pain Positive: Shortness Of Breath Positive: Nausea Negative: Edema Neurological: Other - POS: dizziness, near syncope Positive: Weakness. Negative: Syncope All Other Systems Reviewed And Are Negative: Yes Physical Exam - Summary Physical Exam Summary: Appearance: Well appearing, no pain distress Skin: warm, dry, reflects adequate perfusion Head/face: normal Eyes: EOMI, MAXIM ENT: normal Neck: supple, non-tender Respiratory: CTA, breath sounds present Cardiovascular: RRR, pulses symmetrical Abdomen: non-tender, soft Musculoskeletal: normal, strength/ROM intact Neuro: normal, sensory motor intact, A&Ox3 GCS: 15 Triage Information Reviewed: Yes Vital Signs On Initial Exam: Initial Vitals Temp Pulse Resp BP Pulse Ox 95.6 F 80 20 122/70 96 12/15/18 12:30 12/15/18 12:30 12/15/18 12:30 12/15/18 12:30 12/15/18 12:30 Vital Signs Reviewed: Yes Diagnostics - Vital Signs Vital Signs Temp Pulse Resp BP Pulse Ox 12/15/18 12:30 95.6 F 80 20 122/70 96 - Laboratory Result Diagrams: 12/15/18 14:29 12/15/18 14:35 Lab Statement: Any lab studies that have been ordered have been reviewed, and results considered in the medical decision making process. - Radiology Chest XR Radiology Interpretation Completed By: Radiologist Summary of Radiographic Findings: IMPRESSION: Cardiomegaly. No active cardiopulmonary disease. Dr. Combs has reviewed this report. - CT Brain CT CT Interpretation Completed By: Radiologist Summary of CT Findings: IMPRESSION: No acute intracranial pathology. Dr. Combs has reviewed this report. - EKG 12:39 Cardiac Rate: NL - at 75 bpm Summary of EKG Findings: Paced rhythm at 75 bpm Re-Evaluation - Re-Evaluation First Eval Re-Evaluation Time: 16:55 Comment: Reviewed results with the pt. Second Eval Re-Evaluation Time: 17:05 Comment: Pt was ambulated in the ED, oxygen saturation of 98% on room air but reported SOB, nausea, and dizziness. Course/Dx Assessment/Plan: Pt is a 63 y/o female who presents with lightheadedness and dizziness upon standing up, feeling like passing out. Denies LOC. Pt also states chest pain that began this morning, SOB upon exertion, nausea. Blood work, urinalysis, EKG, CT, XR obtained. Chest XR shows cardiomegaly. No active cardiopulmonary disease. Brain CT is negative. Upon trying to ambulate the pt in the ED she reported dizziness, nausea, and SOB. She reports living at home alone. I discussed the case with Dr. Zabala, hospitalist, who accepted the pt for admission. - Diagnoses Differential Diagnosis/HQI/PQRI: Positive: Dysrhythmia, Hypovolemia, Metabolic Reaction, Transient Ischemic Attack, Vasovagal Episode Provider Diagnoses: Vertigo - Physician Notifications Discussed Care of Patient With: Christal Zabala - hospitalist Time Discussed With Above Provider: 17:43 Instructed by Provider To: Admit As Inpatient Discharge - Sign-Out/Discharge Documenting (check all that apply): Patient Departure - Admit to [facility] Patient Received Moderate/Deep Sedation with Procedure: No - Discharge Plan Condition: Stable Disposition: ADMITTED TO [facility] Referrals: Gia Carson MD [Primary Care Provider] - - Billing Disposition and Condition Condition: STABLE Disposition: Admitted to [facility] - Attestation Statements Document Initiated by Fridaibe: Yes Documenting Scribe: Fany Pichardo Provider For Whom Von is Documenting (Include Credential): Genaro Combs MD Scribe Attestation: Fany Bradley scribed for Genaro Combs MD on 12/15/18 at 1807. Scribe Documentation Reviewed: Yes Provider Attestation: The documentation as recorded by the Fany hobbs accurately reflects the service I personally performed and the decisions made by , Genaro Combs MD Status of Scribe Document: Viewed
[2018-12-15 14:50] LABS: Urine Appearance Cloudy; Urine Bilirubin Negative (Negative); Urine Blood Negative (Negative); Urine Color Yellow; Urine Glucose Negative (Negative); Urine Ketones Negative (Negative); Urine Nitrite Negative (Negative); Urine Protein Negative (Negative); Urine Specific Gravity 1.012 (1.010-1.030); Urine Urobilinogen Negative (Negative)
[2018-12-15 14:55] LABS: ABS Basophils 0.1 10^3/ul (0-0.2); ABS Eosinophils 0.1 10^3/ul (0-0.6); ABS Lymphocytes 1.4 10^3/ul (1.0-4.8); ABS Monocytes 0.4 10^3/ul (0-0.8); ABS Neutrophils 6.6 10^3/ul (1.5-7.7); ABS Nucleated RBC 0 10^3/ul; Eosinophil % 1.3 %; Hematocrit 47 % (33-41); Hemoglobin 15.4 g/dL (12.0-16.0); Lymphocyte % 15.9 %; Mean Corpuscular HGB Conc 33 g/dL (31-36); Mean Corpuscular Hemoglobin 26 pg (27-31); Mean Corpuscular Volume 79 fL (80-97); Mean Platelet Volume 8.3 fL (7.4-10.4); Nucleated Red Blood Cells % 0.1; Platelet Count 267 10^3/uL (150-450); Red Blood Count 5.96 10^6 /uL (3.70-4.87); Red Cell Distribution Width 18 % (10.5-15); White Blood Count 8.6 10^3/uL (3.5-10.8)
[2018-12-15 14:57] LABS: Activated Partial Thrombo Time 41.9 seconds (26.0-36.3); INR 1.2 (0.77-1.02)
[2018-12-15 15:06] LABS: Troponin I 0.02 ng/mL (<0.04)
[2018-12-15 15:09] LABS: BUN/Creatinine Ratio 17.2 (8-20); Calcium 9.8 mg/dL (8.6-10.3); EGFR Non-African American 34.7 (>60); Globulin 3.9 g/dL (2-4); Magnesium 2.3 mg/dL (1.9-2.7); Total Bilirubin 0.9 mg/dL (0.2-1.0); Total Protein 7.9 g/dL (6.4-8.9)
[2018-12-15 15:27] LABS: Potassium 4.7 mmol/L (3.5-5.0)
[2018-12-15] MEDS ORDERED: Meclizine TAB* 12.5 MG PO ONE (17:05)
[2018-12-15] MEDS ORDERED: Acetaminophen TAB* 325 MG PO PRN (18:23)
[2018-12-15] MEDS ORDERED: Acetaminop/Codeine 30 MG TAB* 1 TAB (300 MG/30 MG) PO PRN (18:26)
[2018-12-15 18:42] LABS: C Reactive Protein 16.5 mg/L (<8.01)
[2018-12-15] MEDS ORDERED: Dextrose 50% Syringe 50 ML* 25 GM/50 ML SYRINGE IV PUSH PRN (18:50)
[2018-12-15 19:05] LABS: Influenza A Molecular NEGATIVE (Negative); Influenza B Molecular NEGATIVE (Negative)
[2018-12-15] MEDS ORDERED: Levofloxacin TAB* 500 MG PO ONE (20:00)
--- NOTE | 2018-12-15 20:27 | HP ---
CC: Dr. Carson * HISTORY AND PHYSICAL: DATE OF ADMISSION: 12/15/18 PRIMARY CARE PROVIDER: Dr. Carson. ATTENDING PHYSICIAN WHILE IN THE HOSPITAL: Dr. Christal Zabala * (report dictated by Dejuan Orozco NP). CHIEF COMPLAINT: Dizziness. HISTORY OF PRESENT ILLNESS: Mrs. Alcantar is a 63-year-old female patient who recently was diagnosed with the flu. She says that she was diagnosed on Wednesday last week. She took 5 days of Tamiflu and was starting to feel better today. She says that she also recently was here in the hospital with a CHF exacerbation , was discharged on Lasix b.i.d., and this was continued by her primary according to the patient. She notes that when she got up today, she was feeling okay, but then around 11 o'clock, she started noticing that she was feeling dizzy and felt like the room was spinning. She saw some spots in her vision and she felt very nauseated, particularly with position change. She says anytime she moves her head or she stands up, she feels like the room spins , she feels nauseated. She denies any changes in her vision. No trouble with speech. She denies feeling unsteady on her feet. She denies any focal weaknesses. She says she was concerned because of the increasing dizziness and she also describes it as a roaring in her ear bilaterally. She denied any recent ear discharge, but again does say that she recently had the flu and has been getting over this. She says that during the time of the flu, she was taking her diuretics as prescribed, she was eating and drinking as much as she could. She denied any recent vomiting. No recent fevers. No chest pain or shortness of breath was reported with this and she denied any significant weight change. She came into the ER. She was able to ambulate a significant amount in the ER, but towards the end of the walk, she was starting to become dizzy, the room was spinning, and there was concern because she had persistent symptoms and we were asked to evaluate for admission. PAST MEDICAL HISTORY: Significant for: 1. Cardiomyopathy, EF less than 20%. 2. UT x3. 3. History of DVT/PE. 4. Diabetes. 5. ANNE. 6. AFib. PAST SURGICAL HISTORY: She has had: 1. An AICD/pacemaker placement. 2. . 3. Cardiac cath. HOME MEDICATIONS: Include: 1. Spironolactone 50 mg daily. 2. Crestor 40 mg daily. 3. Potassium 10 mEq p.o. daily. 4. Omeprazole 20 mg p.o. b.i.d. 5. Nitro 0.4 mg sublingual daily as needed. 6. Toprol 100 mg daily. 7. Magnesium oxide 400 mg daily. 8. Lispro 8 units subcu a.c. 9. Lantus 25 units subcu at bedtime. 10. Lasix 40 mg p.o. b.i.d. 11. Colace 100 mg at bedtime as needed. 12. Pradaxa 150 mg p.o. b.i.d. 13. Aspirin 81 mg daily. 14. Tylenol With Codeine 1 tablet at bedtime as needed. ALLERGIES TO MEDICATIONS: Include: 1. BEE VENOM. 2. BEE POLLEN. 3. KEFLEX. 4. CEPHALOSPORIN. 5. GENVOYA. 6. DIPHTHERIA VACCINE. 7. TETANUS VACCINE. 8. PERTUSSIS VACCINE. 9. GLYBURIDE. 10. NIACIN. 11. INSULIN GLARGINE. 12. IODINE. 13. LATEX. 14. VICTOZA. 15. LOSARTAN. 16. MECLIZINE. 17. DEMEROL. 18. METFORMIN. 19. NSAIDS. 20. ZOFRAN. 21. PENICILLIN. 22. PROPOXYPHENE. 23. RAMIPRIL. 24. SITAGLIPTIN. 25. TETRACYCLINE. 26. ATORVASTATIN. FAMILY HISTORY: Mother had a history of EtOH abuse. Father had a history of cancer. SOCIAL HISTORY: She is a former smoker. She does not drink alcohol. She denies drug use. Surrogate decision maker is her friend, Kyung. REVIEW OF SYSTEMS: There is no documented fever. She denied having any significant weight change. There is no double vision. She denies having any ear discharge. There is no rhinorrhea, no sore throat, no thyroid enlargement. Denied having any chest pain. There is no orthopnea. There is no nocturnal dyspnea. She denies having any abdominal pain. There was no nausea. There was no vomiting. No dysuria, no frequency. No seizure. There was no loss of consciousness. No pruritus and no skin ulcerations. Review of 14 systems was completed, all others negative. PHYSICAL EXAMINATION GENERAL: At this time, Mrs. Alcantar is a 63-year-old female patient. She is sitting on the ED stretcher. She is chronically ill appearing. She does not appear to be in any acute distress. VITAL SIGNS: Blood pressure 129/65, pulse 71, respirations 17, O2 sat 94%, temperature 95.6; repeat temperature was 97.2. HEENT: Head: Atraumatic and normocephalic. Eyes: EOMs are intact. Sclerae anicteric and not pale. Throat: Oral mucosa appears to be moist. No oropharyngeal erythema. On an ear exam, the left canal was difficult to evaluate given that she had cerumen there. The right ear, she had again some cerumen noted, but the drum appeared to be bulging. There was no erythema, but there definitely was fluid behind the ear. It was white in nature. NECK: Supple. LUNGS: Clear to auscultation. No wheezes, rales, or rhonchi. HEART: Sounds S1, S2. She had a regular rate and rhythm. No murmurs, rubs, or gallops. ABDOMEN: Soft, flat, nontender. Bowel sounds were present. EXTREMITIES: Pulses were 2+ throughout. She had no peripheral edema. She had 5/5 strength. NEUROLOGIC: She is awake. She is alert. She is oriented x3. She had no nystagmus on exam. Pupils were equal and reactive to light. [id number] intact bilaterally. Oamf-wi-qvyz was intact bilaterally. She had Romberg's with minimal sway. She had 5/5 strength throughout. No facial drooping. No facial weakness was reported. No gross focal deficits. SKIN: Intact. DIAGNOSTIC STUDIES/LAB DATA: Labs: WBC 8.6, RBC of 5.96, hemoglobin 15.4, hematocrit of 47, platelet count of 267. INR of 1.2, PTT of 41.9. Sodium 133, potassium 4.7, chloride was 96, BUN 26, creatinine 1.51, glucose 174, lactic 1.2 , calcium 9.8, mag 2.3. Total bili 0.9, AST 42, ALT 34, alk phos 163. Troponin 0.02, CRP of 16, BNP of 835. Albumin of 4.0. Urine was negative. She had a brain CT obtained today, which revealed no acute intracranial pathology. She had a chest x-ray obtained today, which revealed cardiomegaly. No active cardiopulmonary disease. She had an EKG, which showed an atrial paced rhythm, rate of 75. Old medical records were reviewed. ASSESSMENT AND PLAN: Mrs. Alcantar is a 63-year-old female patient with a complex medical history coming into the ED today with complaints of dizziness in the setting of a recent influenza infection. She will be admitted under observation status for: 1. Dizziness. I suspect this is multifactorial. She does appear to be hemoconcentrated on lab work today. She was on a significant amount of diuretics in the setting of the flu, so she may be a little dry. I am not going to hydrate her given her extensive cardiac history. I would hold her Lasix for tonight and see how she does. Also, she does appear to have possibly an inner ear infection, otitis media, so I am going to put her empirically on Levaquin. I also believe that she may have a labyrinthitis in the setting of a recent viral illness. Her symptoms are very typical of vertigo. If she does not improve in 24 hours, I would consider repeat imaging, but my suspicion for stroke is less likely as she has no symptoms whatsoever when she is still and in bed. It is very positional, which again goes with vertigo. So, we will continue to monitor her and follow. 2. Cardiomyopathy. Continue meds as prescribed. I am cutting back on the Lasix just for tonight. 3. History of myocardial infarction and coronary artery disease. Continue her aspirin. She is on statin and beta kem therapy. 4. History of deep venous thrombosis and pulmonary embolism. She will be on Pradaxa. 5. History of diabetes. I have ordered a lispro sliding scale and we will continue with her Lantus. 6. Obstructive sleep apnea. I have ordered a CPAP. 7. Atrial fibrillation. Continue Pradaxa. She is rate controlled. We will continue to monitor this. We will continue her rate controlling agents. 8. DVT prophylaxis. She is on Pradaxa. 9. Code status. Full code. 10. Fluids, electrolytes, and nutrition. She can have a consistent carb diet. TIME SPENT: Time spent on the admission was 60 minutes, greater than half of the time was spent [id number] with the patient obtaining my history and physical, other half time was spent going over the plan of care with the patient and implementing plan of care. I did discuss the plan of care with my attending, Dr. Zabala; she is in agreement. DEJUAN OROZCO NP [id number]/[facility] #: [id number] [place]
[2018-12-15] MEDS ORDERED: Insulin GLARGINE(*) 1 UNITS UNIT SUBCUT SCH (21:00)
[2018-12-15] MEDS: Pantoprazole TAB * 40 MG TAB PO SCH (21:56)
[2018-12-15] MEDS ORDERED: ROSUVASTATIN 40 MG PO SCH (22:00)
[2018-12-15] MEDS: CMCS: Dabigatran CAP(NF) 150 MG CAP PO SCH (22:01)
[2018-12-15] MEDS: Metoprolol Succinate XL TAB* 100 MG PO SCH (22:02)
[2018-12-16 06:42] LABS: ABS Basophils 0.1 10^3/ul (0-0.2); ABS Eosinophils 0.1 10^3/ul (0-0.6); ABS Lymphocytes 1.2 10^3/ul (1.0-4.8); ABS Monocytes 0.4 10^3/ul (0-0.8); ABS Neutrophils 4.8 10^3/ul (1.5-7.7); ABS Nucleated RBC 0 10^3/ul; Eosinophil % 1.8 %; Hematocrit 43 % (33-41); Hemoglobin 13.9 g/dL (12.0-16.0); Lymphocyte % 18.4 %; Mean Corpuscular HGB Conc 32 g/dL (31-36); Mean Corpuscular Hemoglobin 25 pg (27-31); Mean Corpuscular Volume 79 fL (80-97); Mean Platelet Volume 8.2 fL (7.4-10.4); Nucleated Red Blood Cells % 0.1; Platelet Count 201 10^3/uL (150-450); Red Blood Count 5.51 10^6 /uL (3.70-4.87); Red Cell Distribution Width 19 % (10.5-15); White Blood Count 6.5 10^3/uL (3.5-10.8)
[2018-12-16 06:44] LABS: INR 1.33 (0.77-1.02)
[2018-12-16 07:04] LABS: BUN/Creatinine Ratio 21.6 (8-20); Calcium 9.6 mg/dL (8.6-10.3); EGFR African American 46.2 (>60); EGFR Non-African American 38.2 (>60); Potassium 4.1 mmol/L (3.5-5.0)
[2018-12-16] MEDS: Metoprolol Succinate XL TAB* 100 MG PO SCH (08:39)
[2018-12-16] MEDS: CMCS: Dabigatran CAP(NF) 150 MG CAP PO SCH (08:39)
[2018-12-16] MEDS: Insulin LISPRO* 1 UNITS UNIT SUBCUT SCH ×2 (08:40→12:46)
[2018-12-16] MEDS: Pantoprazole TAB * 40 MG TAB PO SCH (08:40)
[2018-12-16] MEDS ORDERED: Spironolactone TAB* 25 MG PO SCH (09:00)
[2018-12-16] MEDS ORDERED: Aspirin EC TAB* 81 MG TAB.EC PO SCH (09:00)
[2018-12-16 13:28] VITALS: BP 122/52
[2018-12-16] MEDS ORDERED: Levofloxacin TAB* 250 MG PO SCH (20:00)
--- NOTE | 2018-12-17 01:35 | DS ---
CC: Dr. Gia Carson * DISCHARGE SUMMARY: DATE OF ADMISSION: 12/15/18 DATE OF DISCHARGE: 12/16/18 PRIMARY CARE PROVIDER: Dr. Gia Carson. ATTENDING PHYSICIAN: Jevon Carter MD * (dictated by AP Alba). PRIMARY DIAGNOSES: 1. Vertigo. 2. Right otitis media. SECONDARY DIAGNOSES: 1. Cardiomyopathy, ejection fraction less than 20%. 2. Myocardial infarction x3. 3. Diabetes. 4. Atrial fibrillation. 5. Obstructive sleep apnea. 6. History of deep venous thrombosis/pulmonary embolism. STUDIES WHILE IN THE HOSPITAL: 1. Chest x-ray, 12/15/18, impression: Cardiomegaly. No active cardiopulmonary disease. 2. Brain CT, 12/15/18, impression: No acute intracranial pathology. DISCHARGE MEDICATIONS: Home Medications: 1. Spironolactone 50 mg p.o. q.a.m. 2. Rosuvastatin 40 mg p.o. q.p.m. 3. Potassium chloride 10 mEq p.o. daily. 4. Omeprazole 20 mg p.o. b.i.d. 5. Nitroglycerin 0.4 mg sublingual daily p.r.n. 6. Metoprolol succinate 100 mg p.o. b.i.d. 7. Magnesium oxide 400 mg p.o. q.a.m. 8. Insulin lispro 8 units subcu a.c. 9. Insulin glargine 25 units subcu at bedtime. 10. Docusate 100 mg p.o. at bedtime. 11. Dabigatran 150 mg p.o. b.i.d. 12. Aspirin 81 mg p.o. q.a.m. 14. Acetaminophen/codeine 30 mg 1 tab p.o. at bedtime p.r.n. [place] Medication: 1. Levofloxacin 250 mg p.o. q.24 hours x7 days. Changed Home Medication: 1. Furosemide 40 mg p.o. daily. HISTORY OF PRESENT ILLNESS/HOSPITAL COURSE: Ms. Alcatnar is a 63-year-old female with a past medical history as described above who presented to the ER due to dizziness and feeling like the room was spinning. She states that she saw spots, felt nauseous. She states that this occurs only when she moves her head, stands up, or changes positions. She denies changes in vision, difficulty walking, unsteadiness of gait, difficulty with speech. It is noted that the patient was diagnosed with influenza 5 days ago and was started on Tamiflu for this. She presented to the ER and received a full workup. MRI of the head was negative. The patient was noted to have what appeared to be otitis media with a fluid collection posterior to the tympanic membrane of the right ear. She also was taking her Lasix 40 mg twice a day. In the setting of influenza, it is likely that the patient was dry which could contribute to labyrinthitis in the setting of viral illness. The patient was started on Levaquin due to multiple antibiotic allergies. She refused meclizine for potential vertigo stating that she has tried it in the past and it caused her issues. The following day, the patient states that her dizziness has decreased a small amount. She states that she continues to have dizziness with the turning of the head or position changes, but that it is not as intense. She does report that the right ear is painful. She states that she feels that her flu symptoms have resolved, but that she does continue to have right ear pain. The patient is eager to be discharged from the hospital and continues to refuse meclizine for treatment of vertigo. The patient denies chest pain, shortness of breath, headache, vision changes, palpitations, syncope. She continues to feel as if the room is spinning with head changes. She denies abdominal pain, nausea, vomiting, diarrhea, constipation. She denies pain or swelling in the lower extremities. She continues to have right ear pain. PHYSICAL EXAMINATION: Vitals Sings: Temperature 97.2 temporally, heart rate 59 , respiratory rate 20, oxygen saturation 98% on room air, and blood pressure 122 /52. General: Ms. Alcantar is a well-developed, well-nourished, obese white woman who is sitting up in bed. She is in no acute distress. HEENT: Visual aguilar are grossly intact. Her pupils are equally round and reactive to light. Extraocular movements are intact. Hearing is grossly intact. The left auditory canal has a small amount of cerumen. The tympanic membrane is intact with visible landmarks. The right auditory canal also has a small amount of cerumen. There is a bulging disc that is nonerythematous. There are visible air fluid levels posterior to the tympanic membrane. Oral mucous membranes are moist and without lesion. Pharynx is clear. Neck with full range of motion. Trachea is at midline. There is no lymphadenopathy. Cardiovascular: Regular rate and rhythm with S1 and S2 present. No murmurs, rubs, or gallops. There is no JVD. Respiratory: Symmetrical chest expansion with no use of accessory muscles. The lungs are clear to auscultation. There is no rhonchi, wheezes, or rubs. Abdomen: Bowel sounds in all quadrants. The abdomen is soft and nontender to palpation. There is no hepatosplenomegaly. Musculoskeletal: Full range of motion. There is no pain or deformity. Extremities: Skin is warm and smooth bilaterally. There is no edema. No clubbing or cyanosis. Radial and pedal pulses are palpable. Neuro: The patient is awake and alert. She is oriented x3. She is able to move all of her extremities. She has a steady gait with no impairment. Ms. Alcantar is stable for discharge. DISCHARGE PLAN: Ms. Alcantar will be discharged home. ACTIVITY: Caution with walking and head movement due to dizziness. DIET: Heart healthy. MEDICATIONS: As above. EDUCATION: 1. Follow up with primary care physician in 4 to 7 days. 2. Decrease Lasix to 40 mg daily and follow up with PCP regarding future dosage. 3. Levaquin 250 mg daily x7 days starting tonight for otitis media, right ear. 4. Return to the ER or nearest hospital if you experience any worsening of symptoms, shortness of breath, lightheadedness, dizziness, chest discomfort, high fevers, chills, night sweats, loss of consciousness, or any other worrisome signs or symptoms. This is a summarized report of a complex medical history and hospital stay. For further details, please see the entire medical record. TIME SPENT: Approximately 35 minutes was spent on this discharge, greater than half of that time was spent [id number] with the patient discussing discharge plans and instructions. AP PUGH [id number]/[facility] #: [id number] PATSY
== END 2018-12-16 18:15 | disposition home or self-care (01) ==
LOC: ED 12:29 → MEDTELE 18:18
PROVIDERS: ADMIT Internal Medicine; ATTEND Internal Medicine
DX: R42 Dizziness and giddiness (principal); H66.91 Otitis media, unspecified, right ear; I42.9 Cardiomyopathy, unspecified; I25.2 Old myocardial infarction; E11.9 Type 2 diabetes mellitus without complications; I48.91 Unspecified atrial fibrillation; G47.33 Obstructive sleep apnea (adult) (pediatric); Z86.718 Personal history of other venous thrombosis and embolism; I26.99 Other pulmonary embolism without acute cor pulmonale; Z79.82 Long term (current) use of aspirin; Z95.0 Presence of cardiac pacemaker; Z87.891 Personal history of nicotine dependence
CPT/HCPCS: 36415; 70450; 71045; 80048; 80053; 81003; 83605; 83735; 83880; 84484; 85025; 85610; 85730; 86140; 93005; 94660; 96372; 99284; A9270-GY; G0378

== ENCOUNTER 2019-06-21 15:30 | Emergency (ER) | payer MEDICARE, OTHER ==
--- OUTSIDE RECORDS SUMMARY | 2019-06-21 15:55 | XMS REPORT | Summary of Care ---
:1955 Author Organization [facility] Address [address] [place] [address] Care Team Providers Name Role Phone Gia Carson MD Primary Care Provider Sheila Atkinson RN Unavailable Reason for Visit Reason Comments Hospital Follow Up CHF and Cellulitis Encounter Details Date Type Department Care Team Description 05/12/2019 Office Visit [facility] discharge follow -up (Primary Dx); Practice Gia Leija MD Type 2 diabetes mellitus with complication, with long-term current use of insulin ([facility]); [address] Cellulitis of right leg; [place], [place] [id number] [place] [id number] Chronic systolic heart failure (HCC); [phone] ANNE (obstructive sleep apnea); Hx pulmonary embolism; Current use of exterminator termite anticoagulation; Chronic obstructive pulmonary disease, unspecified COPD type ([facility]); Chronic deep vein thrombosis (DVT) of popliteal vein of both lower extremities ([facility]) Allergies Active Allergy Reactions Severity Noted Date Comments Fd&C Blue #2-Ramipril Swelling High 07/27/2011 Throat swelling Lantus Dermatologic Reaction 12/20/2017 Itching, hives and diarrhea Bee Venom Anaphylaxis 05/04/2016 Cephalexin Anaphylaxis High 06/30/2006 angiodema Cephalosporins Anaphylaxis High 06/30/2006 Cozaar Swelling 07/27/2011 Dye Intravenous Cardiac Reaction Medium 08/10/2011 Patient had chest Radiographic Imaging pain after Contrast receiving Apixaban Other 12/15/2017 failure Fd&C Yellow #10 Al Rash 12/20/2017 Red feet at night Modi-Glimepiride Hydromorphone Unknown Reaction 06/30/2006 Latex Unknown Reaction 06/30/2006 Levothyroxine Dermatologic Reaction 07/20/2018 Meperidine And Related Unknown Reaction 06/30/2006 Metformin GI Reaction 07/27/2011 Penicillins Anaphylaxis High 06/30/2006 Pertussis Vaccine Unknown Reaction 03/02/2016 Pneumococcal 13-Charu Conj Swelling Low 07/15/2016 Arm swelling Vacc Propoxyphene Unknown Reaction 06/30/2006 Tetracyclines & Related Unknown Reaction 06/30/2006 Polyethylene Glycol - Other 01/18/2017 Urinary Retention. Torsemide Insulin Degludec Dermatologic Reaction 12/20/2017 itching Simvastatin Unknown Reaction 01/27/2017 Zoloft Other 09/21/2018 Dizzy documented as of this encounter (statuses as of 05/12/2019) Medications Medication Sig Dispensed Refills Start Date End Date Status aspirin 81 MG Oral Tab Take 1 Tab by 30 Tab 0 03/03/2016 Active EC mouth DAILY. magnesium oxide Take 250 mg by 0 Active (MAG-OX) 400 MG Oral mouth TWICE Tab DAILY. EPINEPHrine 0.3 0.3 mg by 1 Each 0 02/17/2018 Active MG/0.3ML Injection Injection route Solution ONCE NEEDED Auto-injectorIndication (severe bee sting s: H/O bee sting allergy only) for allergy up to 1 dose. umeclidinium bromide Take 1 INHL by 1 Each 5 05/26/2018 Active (INCRUSE ELLIPTA) 62.5 inhalation DAILY. MCG/INH Inhalation AEROSOL POWDER, BREATH ACTIVATED nitroglycerin Place 1 Tab under 25 Tab 1 07/14/2018 Active (NITROSTAT) 0.4 MG tongue EVERY FIVE Sublingual SL Tab MINUTES NEEDED (chest pain). clotrimazole (LOTRIMIN) Apply to rash 113 g 1 09/21/2018 Active 1 % Apply externally twice daily 10-14 CreamIndications: Tinea days corporis dabigatran (PRADAXA) Take 1 Cap by 180 Cap 3 11/09/2018 Active 150 MG Oral mouth TWICE CapIndications: Hx DAILY. pulmonary embolism Glucose Blood In Vitro 1 Strip by In 150 Strip 11 11/24/2018 Active StripIndications: Vitro route FOUR Uncontrolled type 2 TIMES DAILY diabetes mellitus with NEEDED (insulin hyperosmolarity without dependant coma, with long-term diabetic). DM II current use of insulin Uncontrolled, Ins (HCC), Type 2 diabetes Dep E11.9 mellitus with other specified complication ([facility]) Lancets 30G Does not 1 Act by Does not 150 Each 5 11/24/2018 Active apply MiscIndications: apply route THREE Uncontrolled type 2 TIMES DAILY. diabetes mellitus with Ell.9, insulin hyperosmolarity without dependent DM, 28 coma, with long-term G, Freestyle current use of insulin (HCC), Type 2 diabetes mellitus with other specified complication (HCC) potassium chloride Take 1 Tab by 180 Tab 3 11/24/2018 Active (K-TAB) 10 MEQ Oral Tab mouth DAILY. CRIndications: Chronic systolic heart failure ([facility]) albuterol HFA (VENTOLIN Take 2 Puffs by 1 Inhaler 5 12/07/2018 Active HFA) 108 (90 Base) inhalation EVERY MCG/ACT Inhalation Aero FOUR HOURS SolnIndications: NEEDED (SOB- Wheezing Bronchitis). fluticasone (FLONASE) [place] 2 Sprays in 1 Bottle 0 12/22/2018 Active 50 MCG/ACT Nasal nose DIRECTED. SuspensionIndications: 2 sprays in each Vertigo nostril once daily Insulin Lispro (HUMALOG Inject 7-10 Units 10 Device 11 01/09/2019 Active KWIKPEN) 100 UNIT/ML beneath the skin Subcutaneous Solution THREE TIMES DAILY Pen-injector WITH MEALS. Does not tolerate novolog metoprolol succinate Take 100 mg by 0 Active (TOPROL XL) 100 MG Oral mouth TWICE TABLET SR 24 HR DAILY. LANTUS SOLOSTAR 100 Inject 38 Units 10 Each 11 02/08/2019 Active UNIT/ML Subcutaneous beneath the skin Solution Pen-injector DAILY AT 1400. PRISCILA Additional information Patient taking differently: 25-30 Units Subcutaneous DAILY 1400, PRISCILA, Reported on 05/12/2019 3:14 PM Spironolactone 50 MG TAKE ONE TABLET 90 Tab 3 03/20/2019 Active Oral TabIndications: BY MOUTH EVERY Chronic systolic heart DAY failure (HCC) fluconazole (DIFLUCAN) Take 1 Tab by 1 Tab 0 03/22/2019 Active 150 MG Oral mouth DAILY. TabIndications: Cellulitis of right lower extremity CRESTOR 40 MG Oral Take 1 Tab by 90 Tab 3 03/22/2019 Active TabIndications: mouth DAILY. Coronary artery disease involving ekl[place]na coronary artery of [place] heart without angina pectoris acetaminophen-codeine Take 1 Tab by 30 Tab 0 04/11/2019 Active (TYLENOL #3) 300-30 MG mouth EVERY Oral TabIndications: FOUR HOURS Pain in both hands, NEEDED (severe Chronic pain syndrome pain). Max Daily Amount: 6 Tabs. Chronic pain syndrome BD PEN NEEDLE MATIAS U/F USE DIRECTED 150 Each 5 04/24/2019 Active 32G X 4 MM Does not 4 TIMES DAILY apply MiscIndications: Uncontrolled type 2 diabetes mellitus with hyperosmolarity without coma, with long-term current use of insulin (HCC) furosemide (LASIX) 40 Take 40 mg by 0 Active MG Oral Tab mouth TWICE DAILY. bumetanide (BUMEX) 1 Take 2 Tabs by 60 Tab 5 05/03/2019 Discontinued MG Oral mouth DAILY. 019 (Provider TabIndications: Acute Discontinued) on chronic systolic (congestive) heart failure (HCC) documented as of this encounter (statuses as of 05/12/2019) Active Problems Problem Noted Date Chronic obstructive pulmonary disease 11/24/2018 Recurrent pulmonary emboli 11/24/2018 Moderate episode of recurrent major depressive disorder 11/24/2018 Uncontrolled type 2 diabetes mellitus with hyperosmolarity without coma, 01/27 with long-term current use of insulin Mitral valve insufficiency 01/06/2018 Current use of exterminator termite anticoagulation 01/06/2018 ICD (implantable cardioverter-defibrillator) in place 10/14/2017 Hx pulmonary embolism 12/08/2016 ANNE (obstructive sleep apnea) 08/20/2016 Overview: CPAP through [facility] Polyarthritis 05/04/2016 Type 2 diabetes mellitus with complication, with long-term current use of insulin Coronary artery disease 05/04/2016 H/O bee sting allergy 05/04/2016 Coronary artery disease involving ekl[place] coronary artery of [place] heart 04/01 without angina pectoris Pacemaker 07/27/2011 Overview: [employer]fg. [employer] Model: V-[id number] ATLAS VR Date of Implant: OCTOBER 25, 2006 Chronic systolic heart failure 07/27/2011 Paroxysmal VT 07/27/2011 Other left bundle branch block 07/27/2011 CAD (coronary artery disease) 10/22/2006 Acute myocardial infarction, unspecified site, initial episode of care 2005 documented as of this encounter (statuses as of 05/12/2019) Immunizations Name Administration Dates Next Due Influenza (IM) Preservative Free 07/13/2018, 07/26/2017 Influenza (IM) W/Pres 06/15/2016 Pneumococcal Conjugate Vaccine 07/21/2013 Pneumococcal Conjugate(13 Valent) 06/15/2016 documented as of this encounter Social History Tobacco Use Types Packs/Day Years Used Date Former Smoker Cigarettes 0.5 22 Quit: 06/20/2006 Smokeless Tobacco: Never Used Alcohol Use Drinks/Week oz/Week Comments No Sex Assigned at Date Recorded Not on file Job Start Date Occupation Industry Not on file Not on file Not on file Travel History Travel Start Travel End No recent travel history available. documented as of this encounter Last Filed Vital Signs Vital Sign Reading Time Taken Comments Blood Pressure 110/70 05/12/2019 2:56 PM EDT Pulse 64 05/12/2019 2:56 PM EDT Temperature 36.9 05/12/2019 2:56 PM EDT C (98.4 F) Respiratory Rate - - Oxygen Saturation 96% 05/12/2019 2:56 PM EDT Inhaled Oxygen Concentration - - Weight 103.9 kg (229 lb) 05/12/2019 2:56 PM EDT Height 172.7 cm (5' 8") 05/12/2019 2:56 PM EDT Body Mass Index 34.82 05/12/2019 2:56 PM EDT documented in this encounter Patient Instructions Patient InstructionsGia Carson MD - 05/12/2019 2:40 PM EDTPlease continue your current medications. Please do laboratory tests today and I will send results. Please make an appointment to follow up with Hermann Valera MD Please see me again in 4-6 weeks. Call sooner if you have worsened shortness of breath, if the cellulitis returns documented in this encounter Progress Notes Gia Carson MD - 05/12/2019 2:40 PM EDT Nursing Notes: Maddie Segovia LPN 05/12/2019 3:07 PM Signed Chief Complaint Patient presents with Hospital Follow Up CHF and Cellulitis Chief Complaint: Hospital Follow up HPI: TCM Statement. Review of the hospitalization: I am seeing for transition of care following hospitalization. The date of discharge was: 05/07-05/09/19 The discharge diagnosis was Acute on chronic congestive heart failure, atrial fibrillation, IDDM, chonic DVT, RLE Cellulitis ankle to knee Sent home on Clindamycin and hydrocortisone cream for her leg. The wondered if she was allergic to bumex so is back on furosemide. She was short of breath and had chest pain, required oxygen. Given 1 dose steroid so glucoses have been high since: 159 yesterday, 118 this am. Prior it was low 100's VQ negative for physical exam. Chest xray NAD US: chronic bilateral peroneal DVT's, no proximal extension. I reviewed the discharge summary, discharge instructions, and pertinent additional documentation obtained during hospitalization. I reconciled the medications. I also reviewed the Transition of Care documentation done by staff. The tests that were not available at the time of discharge were reviewed. Additional tests which are not yet available include: None However she is due for her diabetes medications today Since hospitalization has patient improved? Yes Had a migraine last night, a T3 helped Current patient concerns: None Medications reconciled She is off bumex and back on furosemide Patient Active Problem List Diagnosis Acute myocardial infarction, unspecified site, initial episode of care CAD (coronary artery disease) Pacemaker Chronic systolic heart failure (HCC) Paroxysmal VT (HCC) Other left bundle branch block Coronary artery disease involving eklutna coronary artery of e[place] heart without angina pectoris Polyarthritis Type 2 diabetes mellitus with complication, with long-term current use of insulin (HCC) Coronary artery disease H/O bee sting allergy ANNE (obstructive sleep apnea) Hx pulmonary embolism ICD (implantable cardioverter-defibrillator) in place Mitral valve insufficiency Current use of [facility] anticoagulation Uncontrolled type 2 diabetes mellitus with hyperosmolarity without coma, with long-term current use of insulin (HCC) Chronic obstructive pulmonary disease (HCC) Recurrent pulmonary emboli (HCC) Moderate episode of recurrent major depressive disorder (HCC) Past Medical History: Diagnosis Date AICD (automatic cardioverter/defibrillator) present Anticoagulated by anticoagulation treatment Eliquis as of 02/2016 Arthritis Cardiac rhythm disorder or disturbance or change Chronic systolic heart failure (HCC) 07/27/2011 Congestive heart failure (HCC) EF 20% on Echo 02/2016 Coronary artery disease Coronary artery disease involving eklutna coronary artery of e[place] heart without angina pectoris 04/01/2016 Diabetes mellitus (HCC) saw Dr. Ryan in the past, but no longer takes [employer]. Essential (primary) hypertension Heart attack (HCC) 06/2006 x 2 in one week; airlifte to [place] Pacemaker Paroxysmal VT (HCC) 07/27/2011 Pulmonary hypertension (HCC) Sleep apnea 2014 Has cpap, Dr. Jimenez Past Surgical History: Procedure Laterality Date CATHETERIZATION HEART RIGHT AND LEFT Right 05/18/2017 Procedure: CATHETERIZATION HEART RIGHT AND LEFT; Surgeon: Francisco Murry MD ; Location: [facility] SECTION NOS x 2 COLONOSCOPY years ago, declines repeat INSERTION BI-VENTRICULAR ICD 08/10/2011 Procedure:INSERTION BI-VENTRICULAR ICD; Surgeon:ROB BLAIR; Location:[facility]; Laterality:N/A;UPGRADE TO BI-V ICD LT CA APPENDECTOMY CA INS NEW/RPLCMT PRM PACEMAKR W/TRANS ELTRD ATRIAL CA TOTAL ABDOM HYSTERECTOMY TONSILLECTOMY Current Outpatient Medications: acetaminophen-codeine (TYLENOL #3) 300-30 MG Oral Tab, Take 1 Tab by mouth EVERY FOUR HOURSAS NEEDED (severe pain). Max Daily Amount: 6 Tabs. Chronic pain syndrome, Disp: 30 Tab, Rfl: 0 albuterol HFA (VENTOLIN HFA) 108 (90 Base) MCG/ACT Inhalation Aero Soln , Take 2 Puffs by inhalation EVERY FOUR HOURS NEEDED (SOB- Bronchitis)., Disp: 1 Inhaler, Rfl: 5 aspirin 81 MG Oral Tab EC, Take 1 Tab by mouth DAILY., Disp: 30 Tab, Rfl : 0 BD PEN NEEDLE MATIAS U/F 32G X 4 MM Does not apply Misc, USE DIRECTED 4 TIMES DAILY, Disp: 150 Each, Rfl: 5 clotrimazole (LOTRIMIN) 1 % Apply externally Cream, Apply to rash twice daily 10-14 days, Disp: 113 g, Rfl: 1 CRESTOR 40 MG Oral Tab, Take 1 Tab by mouth DAILY., Disp: 90 Tab, Rfl: 3 dabigatran (PRADAXA) 150 MG Oral Cap, Take 1 Cap by mouth TWICE DAILY., Disp: 180 Cap, Rfl: 3 EPINEPHrine 0.3 MG/0.3ML Injection Solution Auto-injector, 0.3 mg by Injection route ONCE ASNEEDED (severe bee sting allergy only) for up to 1 dose. , Disp: 1 Each, Rfl: 0 fluconazole (DIFLUCAN) 150 MG Oral Tab, Take 1 Tab by mouth DAILY., Disp : 1 Tab, Rfl: 0 fluticasone (FLONASE) 50 MCG/ACT Nasal Suspension, [place] 2 Sprays in nose DIRECTED. 2 sprays in each nostril once daily, Disp: 1 Bottle, Rfl: 0 furosemide (LASIX) 40 MG Oral Tab, Take 40 mg by mouth TWICE DAILY., Disp: , Rfl: Glucose Blood In Vitro Strip, 1 Strip by In Vitro route FOUR TIMES DAILY NEEDED (insulin dependant diabetic). DM II Uncontrolled, Ins Dep E11.9 , Disp: 150 Strip, Rfl: 11 Insulin Lispro (HUMALOG KWIKPEN) 100 UNIT/ML Subcutaneous Solution Pen- injector, Inject 7-10Units beneath the skin THREE TIMES DAILY WITH MEALS. Does not tolerate novolog, Disp: 10 Device, Rfl: 11 Lancets 30G Does not apply Misc, 1 Act by Does not apply route THREE TIMES DAILY. Ell.9, insulin dependent DM, 28 G, Freestyle, Disp: 150 Each, Rfl: 5 LANTUS SOLOSTAR 100 UNIT/ML Subcutaneous Solution Pen-injector, Inject 38 Units beneath the skin DAILY AT 1400. PRISCILA (Patient taking differently: Inject 25-30 Units beneath the skin DAILY AT 1400. PRISCILA), Disp: 10 Each, Rfl: 11 magnesium oxide (MAG-OX) 400 MG Oral Tab, Take 250 mg by mouth TWICE DAILY., Disp: , Rfl: metoprolol succinate (TOPROL XL) 100 MG Oral TABLET SR 24 HR, Take 100 mg by mouth TWICE DAILY., Disp: , Rfl: nitroglycerin (NITROSTAT) 0.4 MG Sublingual SL Tab, Place 1 Tab under tongue EVERY FIVE MINUTES NEEDED (chest pain)., Disp: 25 Tab, Rfl: 1 potassium chloride (K-TAB) 10 MEQ Oral Tab CR, Take 1 Tab by mouth DAILY., Disp: 180 Tab, Rfl: 3 Spironolactone 50 MG Oral Tab, TAKE ONE TABLET BY MOUTH EVERY DAY, Disp : 90 Tab, Rfl: 3 umeclidinium bromide (INCRUSE ELLIPTA) 62.5 MCG/INH Inhalation AEROSOL POWDER, BREATH ACTIVATED, Take 1 INHL by inhalation DAILY., Disp: 1 Each, Rfl: 5 Allergies Allergen Reactions Altace [Fd&C Blue #2-Ramipril] Swelling Throat swelling Cephalexin Anaphylaxis angiodema Cephalosporins Anaphylaxis Pcn [Penicillins] Anaphylaxis Dye Intravenous Radiographic Imaging Contrast Cardiac Reaction Patient had chest pain after receiving Basaglar Kwikpen [Lantus] Dermatologic Reaction Itching, hives and diarrhea Bee Venom Anaphylaxis Cozaar Swelling Eliquis [Apixaban] Other failure Glimepiride [Fd&C Yellow #10 Al Modi-Glimepiride] Rash Red feet at night Hydromorphone Unknown Reaction Latex Unknown Reaction Levothyroxine Dermatologic Reaction Meperidine And Related Unknown Reaction Metformin GI Reaction Pertussis Vaccine Unknown Reaction Propoxyphene Unknown Reaction Tetracyclines & Related Unknown Reaction Torsemide [Polyethylene Glycol - Torsemide] Other Urinary Retention. Tresiba Flextouch [Insulin Degludec] Dermatologic Reaction itching Zocor [Simvastatin] Unknown Reaction Zoloft Other Dizzy Prevnar [Pneumococcal 13-Charu Conj Vacc] Swelling Arm swelling Social History Socioeconomic History Marital status: Spouse name: Not on file Number of children: Not on file Years of education: Not on file Highest education level: Not on file Occupational History Not on file Social Needs Financial resource strain: Not on file Food insecurity: Worry: Not on file Inability: Not on file Transportation needs: Medical: Not on file Non-medical: Not on file Tobacco Use Smoking status: Former Smoker Packs/day: 0.50 Years: 22.00 Pack years: 11.00 Types: Cigarettes Last attempt to quit: 06/20/2006 Years since quittin.9 Smokeless tobacco: Never Used Substance and Sexual Activity Alcohol use: No Drug use: Yes Types: Prescription Sexual activity: Not on file Lifestyle Physical activity: Days per week: Not on file Minutes per session: Not on file Stress: Not on file Relationships Social connections: Talks on phone: Not on file Gets together: Not on file Attends caodaism service: Not on file Active member of club or organization: Not on file Attends meetings of clubs or organizations: Not on file Relationship status: Not on file Intimate partner violence: Fear of current or ex partner: Not on file Emotionally abused: Not on file Physically abused: Not on file Forced sexual activity: Not on file Other Topics Concern Back Care Not Asked Bike Helmet Not Asked Blood Transfusions Not Asked Caffeine Concern Not Asked Exercise Not Asked Hobby Hazards Not Asked International Travel Not Asked Service Not Asked Occupational Exposure Not Asked Seat Belt Not Asked Self-Exams Not Asked Sleep Concern Not Asked Special Diet Not Asked Stress Concern Not Asked Weight Concern Not Asked Social History Narrative Lives alone, single. Children live in [place]. 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 Family History Problem Relation Age of Onset Heart Mother Cancer Father with bone metastases, possible pancreatic Heart Sister RBBB Cancer Sister breast cancer Stroke Paternal Grandfather Heart Maternal Grandfather Heart Maternal Grandmother Diabetes Maternal Grandmother Health Maintenance Topic Date Due ZOSTER IMMUNIZATION SERIES (1 of 2) 2004 HEMOGLOBIN A1C 05/10/2019 INFLUENZA VACCINE (1) 05/21/2019 Diabetic Eye Exam 06/07/2019 DEPRESSION SCREENING 08/31/2019 URINE MICROALBUMIN 09/21/2019 FOOT EXAM 11/25/2019 LIPID DISORDER SCREENING 05/03/2020 HPV IMMUNIZATION SERIES Aged Out MENINGOCOCCAL VACCINE IMM Aged Out ROS Review of Systems - History obtained from the patient General ROS: negative for - chills or fever, unexpected weight changes ENT ROS: negative for - nasal congestion, or visual changes; had a headache last night, now resolved Respiratory ROS: negative for - cough, hemoptysis or increased shortness of breath Cardiovascular ROS: negative for - chest pain, dyspnea on exertion, edema Gastrointestinal ROS: no abdominal pain, change in bowel habits, or black or bloody stools Neuro: denies focal weakness, numbness Exam: BP 110/70 (BP Location: Right arm, Patient Position: Sitting) | Pulse 64 | Temp 98.4 F (36.9 C) | Ht 5' 8" (1.727 m) | Wt 229 lb (103.9 kg) | SpO2 96% | ? No | BMI 34.82 kg/m Physical Exam Physical Examination: General appearance - alert, well appearing, and in no distress Mental status - alert, oriented to person, place, and time, normal mood, behavior, speech, dress, motor activity, and thought processes Eyes - pupils equal, sclera anicteric Ears - bilateral TM's and external ear canals normal Neck - supple, no cervical or supraclavicular adenopathy, carotids upstroke normal bilaterally, no bruits, thyroid exam: thyroid is normal in size without nodules or tenderness, no neck masses palpated. Chest/Lungs - clear to auscultation, no wheezes, rales or rhonchi, symmetric air entry, good aeration Heart - normal rate, regular rhythm, normal S1, S2, no murmurs, rubs, clicks or gallops Abdomen - soft, non tender on palpation, nondistended, no masses or hepatosplenomegaly, bowel soundsnormal, normal to percussion, no guarding or rebound. No costervertebral angle tenderness Neurological - alert, oriented, normal speech, no gross focal findings or movement disorder noted Extremities - dorsalis pedis pulses normal, no pedal edema, no clubbing or cyanosis, RLE cellulitis appears resloved. ASSESSMENT/PLAN: ICD-9-CM ICD-10-CM 1. Hospital discharge follow-up V67.59 Z09 2. Type 2 diabetes mellitus with complication, with long-term current use of insulin ([facility]) 250.90 E11.8 COMPREHENSIVE METABOLIC PANEL V58.67 Z79.4 MICROALBUMIN, RANDOM URINE W/ CREATININE GLYCOHEMOGLOBIN A1C CANCELED: GLYCOHEMOGLOBIN A1C 3. Cellulitis of right leg 682.6 L03.115 4. Chronic systolic heart failure ([facility]) 428.22 I50.22 5. ANNE (obstructive sleep apnea) 327.23 G47.33 6. Hx pulmonary embolism V12.55 Z86.711 7. Current use of exterminator termite anticoagulation V58.61 Z79.01 8. Chronic obstructive pulmonary disease, unspecified COPD type ([facility]) 496 J44.9 9. Chronic deep vein thrombosis (DVT) of popliteal vein of both lower extremities ([facility]) 453.51 I82.533 Coordination of care. - I am satisfied that appropriate referrals are in place to deal with the problems identified during hospitalization, and that the patient has adequate community resources and support in place. She will do her routine diabetes laboratory tests today. I confirmed the patient's understanding of the diagnosis and plan of care. Specific education that was provided today: Patient Instructions Please continue your current medications. Please do laboratory tests today and I will send results. Please make an appointment to follow up with Hermann Valera MD Please see me again in 4-6 weeks. Call sooner if you have worsened shortness of breath, if the cellulitis returns Author: Gia Carson MD 05/12/2019 15:45 documented in this encounter Plan of Treatment Date Type Specialty Care Team Description 06/08/2019 Office Visit Pulmonary Colin Bucio MD [address] [place] [address] [phone] 06/16/2019 Office Visit Family Practice Gia Carson MD [address] [place] [address] [phone] 08/01/2019 [facility] 11/30/2019 [facility] Name Type Priority Associated Diagnoses Date/Time COMPREHENSIVE METABOLIC Lab Routine Type 2 diabetes 05/12/2019 3:41 PM PANEL mellitus with EDT complication, with long-term current use of insulin (HCC) MICROALBUMIN, RANDOM URINE Lab Routine Type 2 diabetes 05/12/2019 3:44 PM W/ CREATININE mellitus with EDT complication, with long-term current use of insulin (HCC) Health Maintenance Due Date Last Done Comments ZOSTER IMMUNIZATION SERIES 2004 (1 of 2) HEMOGLOBIN A1C 05/10/2019 02/07/2019, 11/16/2018, 08/15/2018, Additional history exists INFLUENZA VACCINE (#1) 2019 07/13/2018, 07/26/2017, 06/15/2016 Diabetic Eye Exam 06/07/2019 06/07/2017 DEPRESSION SCREENING 08/31/2019 08/31/2018, 08/31/2018 URINE MICROALBUMIN 09/21/2019 09/21/2018, 09/06/2017, 06/07/2017, Additional history exists FOOT EXAM 11/25/2019 11/24/2018, 11/24/2018, 11/24/2018, Additional history exists LIPID DISORDER SCREENING 05/03/2020 05/03/2019, 03/22/2019, 08/15/2018, Additional history exists HPV IMMUNIZATION SERIES Aged Out No longer eligible based on patient's age to complete this topic MENINGOCOCCAL VACCINE IMM Aged Out No longer eligible based on patient's age to complete this topic documented as of this encounter Goals Goal Patient Goal Associated Recent Patient-Stated? Author Type Problems Progress Weight CHF 9 (05/12/2019 No Alli, increase vs. 2:56 PM EDT) Gia Leija 18 mo reza HERRERA (lbs) < 5 Note: This is an individualized treatment (congestive heart failure, CHF) goal for Kinjal Alcantar: Displayed above (on the right) is how many pounds you are in excess of your lowest weight over the past 18 months. Note that lower numbers are better. Excessive weight gain often indicates fluid reten tion and worsening heart failure. You should contact your doctor immediately if the above number is too high (above your goal, the number on the left). Depression screen Depression 16 (08/31/2018 11:49 AM Gia Pruitt (PHQ-9) total score < 5 ALDEN) MD [facility] Note: This is an individualized treatment (depression) goal for Kinjal Alcantar: Displayed above is your goal for a depression screening (PHQ-9) score that would indicate good control of your depression. Glycohemoglobin A1c < 8.0 Diabetes 9.5 (11/16/2018 8:41 No Gia Carson AM EST) MD [facility] Note: This is an individualized treatment (diabetes control, HgbA1C) goal for Kinjal Alcantar: Displayed above is your progress towards your HgbA1C goal. Your goal is shown above (on the left); your most recent HgbA1C is shown on the right. Note that lower numbers are better. Keep immunizations current Lifestyle Gia Pruitt MD Note: This is an individualized lifestyle goal for Kinjal Alcantar: Please be sure to keep up-to-date on recommended immunizations. For example, this would include a yearly influenza vaccine. Immunization status can be seen by looking at the Health Maintenance sections of your [facility], Plan of Care, and any After Visit Summaries. Consume a zv-ympgf-carr diet Lifestyle No Gia Carson MD Note: This is an individualized lifestyle goal for Kinjal Alcantar: Please do not add additional salt to your food. Additional salt may lead to fluid retention and worsen your congestive heart failure. Keep a regular sleep schedule Lifestyle Gia Pruitt MD Note: This is an individualized lifestyle goal for Kinjal Alcantar: Please maintain a regular sleep schedule. This may help with some symptoms of depression. Take all prescribed medications as Self-management No Gia Carson MD directed Note: This is an individualized self-management goal for Kinjal Alcantar: Please take all prescribed medications as directed. 1. Do not skip doses. If you cannot afford your medications, talk with your doctor. 2. Use a pill reminder system such as a pill box if needed. Your pharmacist can help you with this. 3. Contact your Pharmacy 5 days before your medication runs out. If you cannot take your medications for any reasons, talk with your doctor. 4. Please bring all of your medication bottles and inhalers (or a list of all your medications/inhalers) with you to every visit. Potential barriers to meeting all of your care plan goals will continue to be addressed on an ongoing basis. Check your weight daily Self-management Gia Pruitt MD Note: This is an individualized self-management goal for Kinjal Alcantar: Please check your weight daily. Refer to the accompanying CHF treatment goal and call your doctor immediately for further instructions on how to respond to unexpected weight gain. documented as of this encounter Implants Implanted Type Area Appliance Worker Device Shelf Model / Identifier Expiration Serial / Date Lot Unify [id number] - [id number] Left: [facility] [employer], 11/17/2012 [id number] / Implanted: Qty: 1 on 08/10/2011 at [facility] [employer] [id number] / Lead Tendril # [id number] - [id number] Left: [facility] [employer] 03/19/2014 [id number] / Implanted: Qty: 1 on 08/10/2011 at [facility]/ [place] [id number] / R 1158t [employer] Lead - [id number] Left: [facility], 02/17/2014 [id number] / Implanted: Qty: 1 on 08/10/2011 at [facility] [employer] [id number] / Riccia Jhonyura Mp [id number] Environmental Services Associate-D - [id number] N/A: Chest [facility] [employer] , 04/19/2019 [id number] / Implanted: Qty: 1 on 06/28/2017 by Rob Blair MD at [facility] [employer] [id number] / Optisense Lead - [id number] N/A: Chest [facility], 2019/52 / Implanted: Qty: 1 on 06/28/2017 by Rob Blair MD at [facility] [id number] / Lda 210q/65 [employer] - [id number] N/A: Chest [facility], 2017 [id number] / Implanted: Qty: 1 on 06/28/2017 by Rob Blair MD at [facility] [id number] / Quartet 1458q-86cm - [id number] N/A: Chest [facility] [employer], 11/18/2019 1458Q-86 / Implanted: Qty: 1 on 06/28/2017 by Rob Blair MD at [facility] [id number] / documented as of this encounter Results Not on filedocumented in this encounter Visit Diagnoses Diagnosis Hospital discharge follow-up - Primary Other follow-up examination Type 2 diabetes mellitus with complication, with long-term current use of insulin (HCC) Cellulitis of right leg Cellulitis and abscess of leg, except foot Chronic systolic heart failure (HCC) Chronic systolic heart failure ANNE (obstructive sleep apnea) Obstructive sleep apnea (adult) (pediatric) Hx pulmonary embolism Personal history of pulmonary embolism Current use of [facility] Encounter for long-term (current) use of anticoagulants Chronic obstructive pulmonary disease, unspecified COPD type (HCC) Chronic deep vein thrombosis (DVT) of popliteal vein of both lower extremities (HCC) documented in this encounter Insurance Payer Benefit Plan / Subscriber ID Effective Dates Phone Address Type Group [employer]ARE F[employer] CARE xxxxxxxxxxx 2016-Present [employer] [place] [employer] Guarantor Name Account Type Relation to Date of Phone Billing Patient Address Kinjal Alcantar Personal/Family 1955 [phone]) [address] (Work) [id number] documented as of this encounter Advance Directives Type Date Recorded Patient 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
--- OUTSIDE RECORDS SUMMARY | 2019-06-21 15:55 | XMS REPORT | Summary of Care ---
:1955 Author Organization [facility] Address [address] [id number] Care Team Providers Name Role Phone Gia Carson MD Primary Care Provider Sheila Atkinsno RN Unavailable Reason for Visit Reason Comments Follow Up Pt. in for a Follow up on Chronic Systolic Heart Failure, and Severe Ischemic Cardiomyopathy S/P BiV ICD. Reports having increased Dizziness. Encounter Details Date Type Department Care Team Description 05/24/2019 [facility] Coronary artery disease involving [place] coronary artery of [place] heart without angina pectoris ( Primary Dx); Cardiology MD Heramnn Pulmonary hypertension (HCC); [address] Chronic systolic heart failure (HCC); [place] [address] [place] [address] Ischemic cardiomyopathy; [phone] Non-rheumatic mitral regurgitation Allergies Active Allergy Reactions Severity Noted Date [...] as of this encounter (statuses as of 05/24/2019) Medications Medication Sig Dispensed Refills Start Date [...] Dep E11.9 mellitus with other specified complication (HCC) Lancets 30G Does not 1 Act by [...] mouth DAILY. CRIndications: Chronic systolic heart failure (HCC) albuterol HFA (VENTOLIN Take 2 Puffs by 1 Inhaler 5 12/07/2018 Active HFA) 108 (90 Base) inhalation EVERY MCG/ACT Inhalation Aero FOUR HOURS SolnIndications: NEEDED (SOB- Wheezing Bronchitis). fluticasone (FLONASE) [place] 2 Sprays in 1 Bottle 0 12/22/2018 [...] Patient taking differently: 25-30 Units Subcutaneous DAILY 1400PRISCILA, Reported on 05/12/2019 3:14 PM Spironolactone 50 MG Oral TAKE ONE TABLET BY 90 Tab 3 03/20/2019 Active TabIndications: Chronic MOUTH EVERY DAY systolic heart failure (HCC) fluconazole (DIFLUCAN) 150 MG Take 1 Tab by mouth 1 Tab 0 03/22/2019 Active Oral TabIndications: Cellulitis DAILY. of right lower extremity CRESTOR 40 MG Oral Take 1 Tab by mouth 90 Tab 3 03/22/2019 Active TabIndications: Coronary artery DAILY. disease involving [place] coronary artery of [place] heart without angina pectoris acetaminophen-codeine (TYLENOL Take 1 Tab by mouth 30 Tab 0 04/11/2019 Active #3) 300-30 MG Oral EVERY FOUR HOURS TabIndications: Pain in both NEEDED (severe pain). hands, Chronic pain syndrome Max Daily Amount: 6 Tabs. Chronic pain syndrome BD PEN NEEDLE MATIAS U/F 32G X 4 USE DIRECTED 4 TIMES 150 Each 5 2018 Active MM Does not apply DAILY MiscIndications: Uncontrolled type 2 diabetes mellitus with hyperosmolarity without coma, with long-term current use of insulin (HCC) furosemide (LASIX) 40 MG Oral Take 40 mg by mouth 0 Active Tab TWICE DAILY. documented as of this encounter (statuses as of 05/24/2019) Active Problems Problem Noted Date Chronic obstructive pulmonary disease 11/24/2018 Recurrent pulmonary emboli 11/24/2018 Moderate episode of recurrent major depressive disorder 11/24/2018 Uncontrolled type 2 diabetes mellitus with hyperosmolarity without coma, 01/27 with long-term current use of insulin Mitral valve insufficiency 01/06/2018 Current use of care home anticoagulation 01/06/2018 ICD (implantable cardioverter-defibrillator) in place 10/14/2017 Hx pulmonary embolism 12/08/2016 ANNE (obstructive sleep apnea) 08/20/2016 Overview: CPAP through [facility] through [facility] Polyarthritis 05/04/2016 Type 2 diabetes mellitus with complication, with long-term current use of insulin Coronary artery disease 05/04/2016 H/O bee sting allergy 05/04/2016 Coronary artery disease involving [place] coronary artery of [place] heart 04/01 without angina pectoris Pacemaker 07/27/2011 Overview: Mfg. [employer] Model: V-193 ATLAS VR Date of Implant: OCTOBER 25, 2006 Chronic systolic heart failure 07/27/2011 Paroxysmal VT 07/27/2011 Other left bundle branch block 07/27/2011 CAD (coronary artery disease) 10/22/2006 Acute myocardial infarction, unspecified site, initial episode of care 2005 documented as of this encounter (statuses as of 05/24/2019) Immunizations Name Administration Dates Next Due Influenza [...] Sign Reading Time Taken Comments Blood Pressure 108/62 05/24/2019 2:16 PM EDT Pulse 68 05/24/2019 2:16 PM EDT Temperature - - Respiratory Rate - - Oxygen Saturation - - Inhaled Oxygen Concentration - - Weight 105.7 kg (233 lb) 05/24/2019 2:16 PM EDT Height 172.7 cm (5' 8") 05/24/2019 2:16 PM EDT Body Mass Index 35.43 05/24/2019 2:16 PM EDT documented in this encounter Patient Instructions Patient InstructionsMcClHermann henderson MD - 05/24/2019 2:40 PM EDT No medication changes today. Continue to work on a low sodium diet and watch your weight. As we discussed, you can take an extra 40mg of Lasix daily as needed if you have increased weight or swelling. Follow up with me in late June. documented in this encounter Progress Notes Hermann Valera MD - 05/24/2019 2:40 PM EDT [place] Card[facility] Note Patient: Kinjal Alcantar Date of : 1955 Date of Service: 05/24/2019 REFERRING PRACTITIONER: Hermann Valera PRIMARY CARE PROVIDER: Gia Carson Chief Complaint: Chief Complaint Patient presents with Follow Up Pt. in for a Follow up on Chronic Systolic Heart Failure, and Severe Ischemic Cardiomyopathy S/P BiV ICD. Reports having increased Dizziness. History of Present Illness: We had the pleasure of seeing Kinjal Alcantar today at the [facility] Cardiology Office. She is a 63-y.o. female with severe ischemic cardiomyopathy s/p BiV ICD, Diabetes Mellitus Type II, Two Vessel CAD s/p PCI to LAD 2005 and PALLETIZER of the RCA, Obstructive Sleep Apnea, COPD , HTN, and SVT. Also has moderate functional MR and elevated PASP by echo as well as prior bilateral LE DVTs s/p a course of Eliquis with recurrent DVTs 2016 now on indefinite OAC therapy. Left and right heart cath 04/2017 showed no new coronary lesions and moderate pulmonary HTN with elevatedPVR. She then had inappropriate ICD shocks 06/2017 d/t Riata lead malfunctioning and had lead extractions and [employer] BiV ICD replacement by Dr. Blair. Ms. Alcantar returns to cardiology clinic today for close f/u. Since her last visit with me a couple of weeks ago she was admitted at [facility] from 05/07 to 05/09 with RLE cellulitis and acute on chronic CHF. In the past few weeks, she reports that she thought the Bumex may have been causing some of her N/V prior to her hospitalization so she's back on Lasix 40mg BID. Says that her breathing has been OK and she has been able to go camping with some friends. No chest pains/pressure. Her BPs run on the low side and she does have some lightheadedness (particularly in the AM). No syncope. No sig PND and her LE edema has been minimal recently. No sig orthopnea and her weight has been up and down. Patient Active Problem List Diagnosis Acute myocardial infarction, unspecified site, initial episode of care CAD (coronary artery disease) Pacemaker Chronic systolic heart failure (HCC) Paroxysmal VT (HCC) Other left bundle branch block Coronary artery disease involving [place] coronary artery of [place] heart without angina pectoris Polyarthritis Type 2 diabetes mellitus with complication, with long-term current use of insulin (HCC) Coronary artery disease H/O bee sting allergy ANNE (obstructive sleep apnea) Hx pulmonary embolism ICD (implantable cardioverter-defibrillator) in place Mitral valve insufficiency Current use of [employer] anticoagulation Uncontrolled type 2 diabetes mellitus with [...] Coronary artery disease Coronary artery disease involving [place] coronary artery of [place] heart without angina pectoris 04/01/2016 Diabetes mellitus (HCC) saw Dr. Ryan in the past, but no longer takes [place]. Essential (primary) hypertension Heart attack (HCC) 06/2006 x 2 in one week; airlifte to [place] Pacemaker Paroxysmal VT (HCC) 07/27/2011 Pulmonary hypertension (HCC) Sleep apnea 2014 Has cpap, Dr. Jimenez Past Surgical History: Procedure Laterality Date CATHETERIZATION HEART RIGHT AND LEFT Right 05/18/2017 Procedure: CATHETERIZATION HEART RIGHT AND LEFT; Surgeon: Francisco Murry MD ; Location: [facility] SECTION NOS x 2 COLONOSCOPY years ago, declines repeat INSERTION BI-VENTRICULAR ICD 08/10/2011 Procedure:INSERTION BI-VENTRICULAR ICD; Surgeon:ROB BLAIR; Location:[facility]; Laterality:N/A;UPGRADE TO BI-V ICD LT LA APPENDECTOMY LA INS NEW/RPLCMT PRM PACEMAKR W/TRANS ELTRD ATRIAL LA TOTAL ABDOM HYSTERECTOMY TONSILLECTOMY Allergies Allergen Reactions Altace [Fd&C Blue #2-Ramipril] [...] [Pneumococcal 13-Charu Conj Vacc] Swelling Arm swelling Current Outpatient Medications Medication acetaminophen-codeine (TYLENOL #3) 300-30 MG Oral Tab albuterol HFA (VENTOLIN HFA) 108 (90 Base) MCG/ACT Inhalation Aero Soln aspirin 81 MG Oral Tab EC BD PEN NEEDLE MATIAS U/F 32G X 4 MM Does not apply Misc clotrimazole (LOTRIMIN) 1 % Apply externally Cream CRESTOR 40 MG Oral Tab dabigatran (PRADAXA) 150 MG Oral Cap EPINEPHrine 0.3 MG/0.3ML Injection Solution Auto-injector fluconazole (DIFLUCAN) 150 MG Oral Tab fluticasone (FLONASE) 50 MCG/ACT Nasal Suspension furosemide (LASIX) 40 MG Oral Tab Glucose Blood In Vitro Strip Insulin Lispro (HUMALOG KWIKPEN) 100 UNIT/ML Subcutaneous Solution Pen- injector Lancets 30G Does not apply Misc LANTUS SOLOSTAR 100 UNIT/ML Subcutaneous Solution Pen-injector magnesium oxide (MAG-OX) 400 MG Oral Tab metoprolol succinate (TOPROL XL) 100 MG Oral TABLET SR 24 HR nitroglycerin (NITROSTAT) 0.4 MG Sublingual SL Tab potassium chloride (K-TAB) 10 MEQ Oral Tab CR Spironolactone 50 MG Oral Tab umeclidinium bromide (INCRUSE ELLIPTA) 62.5 MCG/INH Inhalation AEROSOL POWDER, BREATH ACTIVATED Family History Problem Relation Age of Onset Heart Mother Cancer Father with bone metastases, possible pancreatic Heart Sister RBBB Cancer Sister breast cancer Stroke Paternal Grandfather Heart Maternal Grandfather Heart Maternal Grandmother Diabetes Maternal Grandmother Social History Socioeconomic History Marital status: Spouse [...] file Gets together: Not on file Attends muslim service: Not on file Active member of [...] Narrative Lives alone, single. Children live in [place]. Retired [employer]- no known exposure to asbestos, silica or tuberculosis Has a coal stove for heating. Review of Systems - Negative except as noted in HPI. Physical Exam: Vitals: 05/24/19 1416 BP: 108/62 BP Location: Left arm Patient Position: Sitting Pulse: 68 Weight: 233 lb (105.7 kg) Height: 5' 8" (1.727 m) Body mass index is 35.43 kg/m. General: Obese, alert 63-y.o. female in NAD HEENT: anicteric, MMM, no E/E OP, conj pink Neck: JVP difficult to see d/t body habitus, but appears to be approx 8 cm above the RA. No carotidbruits or LAD CV: RRR, normal s1/s2, 2/6 holosystolic murmur at apex as before. Pulm: CTA bilaterally without wheezes, rhonchi, or rales. Abd: soft, obese, NT, ND, +BS. No appreciable pulsatile masses or bruits. Ext: Trace bilateral lower extremity edema slightly improved from prior. No cyanosis, redness, or warmth, 1+ distal pulses Neuro: no gross focal deficits Skin: no visible lesions Labs: Lab Results Component Value Date NA 139 05/12/2019 K 4.1 05/12/2019 CL 99 05/12/2019 CO2 31 (H) 05/12/2019 GLUCOSE 201 (H) 05/12/2019 BUN 29 (H) 05/12/2019 CREATININE 1.5 (H) 05/12/2019 CALCIUM 9.1 05/12/2019 TP 7.8 05/12/2019 ALBUMIN 3.9 05/12/2019 AST 37 05/12/2019 ALT 31 05/12/2019 ALK 164 (H) 05/12/2019 TBILI 0.9 05/12/2019 Lab Results Component Value Date NT PRO BNP 5,850 (H) 05/03/2019 Lab Results Component Value Date CHOL 87 08/15/2018 TRIG 78 08/15/2018 HDL 22 (L) 08/15/2018 LDL 49 08/15/2018 LDLHDLRATIO 2.2 08/15/2018 CHOLHDLRATIO 4.0 08/15/2018 Cardiac Studies: EKG Today (I personally reviewed): A-sensed, V-paced in 60s. ICD Interrogation 03/28/19: This visit was performed remotely. Atrial and bi-ventricular pacing with capture and atrial sensing was seen at the time of this transmission. There have been no episodes of atrial fibrillation or ventricular tachycardia. [employer]ue Impedance monitoring shows a decrease in thoracic impedance measurements for 21 days in December, 16 days in February/March. This would indicate that possible fluid accumulation was occurring at that time. Implantable Cardioverter Defibrillator function appears normal. TTE at [facility] 11/21/2018: TTE 10/06/18: FINAL IMPRESSION: Technically difficult study with limited acoustic windows and very limited endocardial visualization. Severely dilated LV with moderate left atrial enlargement. Severely reduced LV systolic function with estimated LVEF 15-20%. Moderate right heart enlargement with reduced RV contractility. Moderate mitral and tricuspid regurgitation. Moderate elevation in estimated pulmonary arterial systolic pressure. No pericardial effusion. Compared to prior [facility] echo report 11/2017, no significant changes are apparent. Left and Right Heart Cath 05/18/17: HEMODYNAMIC FINDINGS: Pulmonary capillary wedge pressure is at the upper limits of normal at 18 mmHg. Pulmonary artery pressure is 62/13 mmHg with a mean of 36 mmHg. Right atrial mean pressure is 3 mmHg. Arterial oxygen saturation is 91% and pulmonary artery oxygen saturation is 68%. Jayesh cardiac output is 5.60 liters per minute, with an index of 2.59 liters per minute per m2. Pulmonary vascular resistance is elevated at 3.22 wood units. SUMMARY: 1. Single-vessel disease involving a chronically occluded right coronary artery. 2. Moderate pulmonary hypertension. 3. Increased pulmonary vascular resistance. 4. Normal cardiac output/index. Regadenoson SPECT at [facility] 05/06/17: -Large fixed defect involving the mid and distal anterior wall, mid and distal septum, distal inferior wall, and apex. There is marginal reversibility. -LVEF 18% -TID 1.02 "Again noted is a large fixed defect consistent with previous infarct with marginal reversibility with may be missed registration artifact or reflect marginal ischemia. This is markedly decreased ejection fraction." TTE 01/29/17: FINAL IMPRESSION: Technically difficult study with limited acoustic windows and very limited endocardial visualization. Dilated LV with moderate eccentric LVH and moderate left atrial enlargement. Severely reduced LV systolic function with severe global hypokinesis and relative preservation of function at the base. Estimated LVEF 20-25%. Mild right heart enlargement with preserved RV contractility. Approximately moderate "functional" mitral regurgitation, as described. Mild to moderate tricuspid regurgitation. Moderate elevation in estimated pulmonary arterial systolic pressure. No pericardial effusion. In direct visual comparison with images of TTE dated 03/01/16, LVEF appears similar, mitral and tricuspid regurgitation appear mildly improved, and estimated PASP is somewhat lower (72 mmHg --> 61 mmHg). Limited TTE 03/03/16: FINAL IMPRESSION: Interatrial septum appears aneurysmal yet intact by 2D imaging and Color Doppler interrogation. Bubbly study performed confirmed tiny PFO NM Stress: 02/28/2016 Report from [facility] Decreased LVEF with large fixed defect of the apex consistent with infarct with marginal ischemia Distal anterior and inferior kay with marginal reversibility Left Heart Cath [facility] 2013: Repeat catheterization showing no significant stenosis in LAD. First septal large bifurcating vesselwith ostial 65%. Circumflex large and codominant with collaterals to the right. Consideration if continued to have symptoms to attempt retrograde approach to PALLETIZER. Assessment & Plan: Kinjal Alcantar is a 63-y.o. female with severe ischemic cardiomyopathy s/p BiV ICD, Diabetes Mellitus Type II, Two Vessel CAD s/p PCI to LAD 2005 and PALLETIZER of the RCA, Obstructive Sleep Apnea, COPD, HTN, and SVT. Also has moderate functional MR and elevated PASP by echo as well as prior bilateral LE DVTs s/p a course of Eliquis with recurrent DVTs 04/2017 now on indefinite OAC therapy. Left and right heart cath 04/2017 showed no new coronary lesions and moderate pulmonary HTN with elevated PVR. Shethen had inappropriate ICD shocks 06/2017 d /t Riata lead malfunctioning and had lead extractions andSt. Kobi BiV ICD replacement by Dr. Blair. ICD-9-CM ICD-10-CM 1. Coronary artery disease involving [place] coronary artery of [place] heart without angina pectoris 414.01 I25.10 AMBULATORY 12 LEAD EKG (GLOBAL) 2. Pulmonary hypertension (HCC) 416.8 I27.20 3. Chronic systolic heart failure (HCC) 428.22 I50.22 4. Ischemic cardiomyopathy 414.8 I25.5 5. Non-rheumatic mitral regurgitation 424.0 I34.0 1. Ischemic Cardiomyopathy with NYHA Class II-III symptoms: Pt is much more euvolemic and compensated today than she was at her last visit a few weeks ago. Recommendations are as follows: Most recent LV function: 20% (assessed on 11/21/18 by [facility] echo). Beta-kem: Cont Toprol XL 100mg BID. ALEX-inhibitor or ARB: Has anaphylaxis to this med class. Could consider hydralazine/Imdur but she already has some orthostasis and I'm not sure how much additional benefit she'd get. Also, she didn't tolerate Imdur in the past. Aldosterone Antagonist: Cont spironolactone 50mg daily. Diuretics: Didn't tolerate torsemide previously d/t side effects. I had tried Bumex 2mg dailywhen she was volume overloaded; shortly after starting she developed RLE cellulitis and attributed N/V to the Bumex. I'm not convinced that the Bumex caused any of her sxs, but for now she's back on Lasix 40mg BID and doing OK. I instructed her to take an extra 40mg daily prn for worsening weight gain/swelling or worsening dyspnea. Devices: Has a [employer] Kobi BiV ICD; will cont with remote interrogations. Other: Over the past year she has had more frequent hospitalizations for CHF exacerbations and has also had a gradual worsening of renal function for 1- 2 years. I continue to feel that it would beappropriate to get her plugged in with the [facility] clinic in [place], and I'd be interested tosee whether they feel a repeat RHC and/or CPET may be useful in her case. Our ocular care technologist has arranged for home monitoring for her CHF, and I'll again discuss with her to see if we can find a HF program that will accept patient's insurance. 2. Coronary Artery Disease, s/p PCI: No significant chest pains at this point. I recommend the following medical regimen: Antiplatelets: Continue aspirin 81 mg daily for life. Statin: Cont Crestor 40mg daily. Direct LDL was great at 41 in 04/2019. Beta-kem: Toprol XL as above. Anti-anginals: Not needed. Did not tolerate Imdur previously. 3. Moderate Pulmonary HTN: Multifactorial Group 2 and Group 3 pulm HTN, the latter from ANNE and somelung disease. 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 I have offered her an empiric trial of a PDE inhibitor such as sildenafil in the past, but she hasn't wanted to try that. Thank you for allowing me to participate in the care of Kinjal Alcantar. We will plan on f/u in ouroffice in mid-late June or sooner prn. If you have any questions or concerns please feel free tocall our office at . Hermann Valera MD, 05/24/2019, 14:50 This note was created using my previous note as a template; changes were made where appropriate, andall information in the current note is up to date to the best of my knowledge.Electronically signed by Hermann Valera MD at 2018 2:54 PM EDTdocumented in this encounter Plan of Treatment Date Type Specialty Care Team Description 06/08/2019 Office Visit Pulmonary Colin Bucio MD [address] [place] [address] [phone] 06/16/2019 Office Visit Family Practice Gia Carson MD [address] [place] [id number] 07/17/2019 Office Visit Cardiology Hermann Valera MD [address] [place] [address] 08/01/2019 [facility] 11/30/2019 [facility] Ar[facility] Name Type Priority Associated Diagnoses Order Schedule AMBULATORY 12 LEAD EKG EKG Routine Coronary artery disease Ordered: 2018 (GLOBAL) involving [place] coronary artery of [place] heart without angina pectoris Health Maintenance Due Date Last Done Comments ZOSTER IMMUNIZATION SERIES 2004 (1 of 2) INFLUENZA VACCINE (#1) 2019 07/13/2018, 07/26/2017, 06/15/2016 Diabetic Eye Exam 06/07/2019 06/07/2017 HEMOGLOBIN A1C 08/12/2019 05/12/2019, 02/07/2019, 11/16/2018, Additional history exists DEPRESSION SCREENING 08/31/2019 08/31/2018, 08/31/2018 FOOT EXAM 11/25/2019 11/24/2018, 11/24/2018, 11/24/2018, Additional history exists LIPID DISORDER SCREENING 05/03/2020 05/03/2019, 03/22/2019, 08/15/2018, Additional history exists URINE MICROALBUMIN 05/12/2020 05/12/2019, 09/21/2018, 09/06/2017, Additional history exists HPV IMMUNIZATION SERIES Aged Out No longer eligible based on patient's age to complete this topic MENINGOCOCCAL VACCINE IMM Aged Out No longer eligible based on patient's age to complete this topic documented as of this encounter Goals Goal Patient Goal Associated Recent Patient-Stated? Author Type Problems Progress Weight CHF 13 No Alli, beth vs. (05/24/2019 Gia Leija, 18 mo min 2:16 PM EDT) (lbs) < 5 Note: This is an [...] Depression screen Depression 16 (08/31/2018 11:49 AM No Gia Carson (PHQ-9) total score < 5 EST) MD [facility]adio Note: This is an individualized treatment (depression) goal for Kinjal Alcantar: Displayed above is your goal for a depression screening (PHQ-9) score that would indicate good control of your depression. Glycohemoglobin A1c < 8.0 Diabetes 9.5 (05/12/2019 3:41 No Gia Carson PM EDT) MD [facility]io Note: This is an individualized [...] and any After Visit Summaries. Consume a [id number]-eqfe diet Lifestyle No Gia Carson MD Note: [...] ongoing basis. Check your weight daily Self-management No Gia Carson MD Note: This is an individualized self-management goal for Kinjal Alcantar: Please check your weight daily. Refer to the accompanying CHF treatment goal and call your doctor immediately for further instructions on how to respond to unexpected weight gain. documented as of this encounter Implants Implanted Type Area Saxophone Assembler Device Shelf Model / Identifier Expiration Serial / Date Lot Unify [id number] - [id number] Left: [employer], 11/17/2012 [id number] / Implanted: Qty: 1 on 08/10/2011 at [facility]. [id number] / Lead Tendril # [id number] - [id number] Left: [employer] 03/19/2014 [id number] / Implanted: Qty: 1 on 08/10/2011 at [facility]/ PACESETTE [id number] / R 1158t Quickflex Lead - [id number] Left: [employer], 02/17/2014 [id number] / Implanted: Qty: 1 on 08/10/2011 at [facility]. [id number] / Quadra Assura Mp [id number] Administrative Library Assistant-D - [id number] N/A: Chest [employer] , 04/19/2019 [id number] / Implanted: Qty: 1 on 06/28/2017 by Rob Blair MD at [facility] [id number] / Optisense Lead - [id number] N/A: Chest [employer], [id number] / Implanted: Qty: 1 on 06/28/2017 by Rob Blair MD at [facility] [id number] / Lda 210q/65 Optisure - [id number] N/A: Chest [employer], 2017 [id number] / Implanted: Qty: 1 on 06/28/2017 by Rob Blair MD at [facility] [id number] / Quartet 1458q-86cm - [id number] N/A: Chest [employer], 11/18/2019 [id number] / Implanted: Qty: 1 on 06/28/2017 by Rob Blair MD at [facility] [id number] / documented as of this encounter Results Not on filedocumented in this encounter Visit Diagnoses Diagnosis Coronary artery disease involving [place] coronary artery of [place] heart without angina pectoris - Primary Pulmonary hypertension (HCC) Other chronic pulmonary heart diseases Chronic systolic heart failure (HCC) Chronic systolic heart failure Ischemic cardiomyopathy Other specified forms of chronic ischemic heart disease Non-rheumatic mitral regurgitation Mitral valve disorders documented in this encounter Insurance Payer Benefit Plan / Subscriber ID Effective Dates Phone Address Type Group FIDELIS MEDICARE FIDELIS CARE xxxxxxxxxxx 2016-Present [facility]-MEDICARE ADVANTAGE Guarantor Name Account Type Relation to Date of Phone Billing Patient Address Kinjal Alcantar Personal/Family 1955 [id number]) [address] [place] ([place]) [id number] documented as of this encounter Advance Directives Type Date Recorded Patient Bead Flipper Explanation Advance Directives 12/16/2018 9:01 AM Health Care Proxy VANNESSA-WILLIAM 12/16/2018 9:01 AM WILLIAM - [facility] Dept of Health
--- OUTSIDE RECORDS SUMMARY | 2019-06-21 15:55 | XMS REPORT | Summary of Care ---
:1955 Author Organization [facility] Address [address] [place] [address] Care Team Providers Name Role Phone Gia Carson MD Primary Care Provider Sheila Atkinson RN Unavailable Reason for Visit Reason Comments Check Up follow on diabetes Encounter Details Date Type Department Care Team Description 06/16/2019 Office Visit [facility], Type 2 diabetes mellitus with complication, with long-term current use of insulin (HCC) (Primary Dx); Practice Gia Leija MD Wheezing; [address] Chronic obstructive pulmonary disease, unspecified COPD type ([facility]); [place], [place] [id number] [place] [id number] Scratch mata; [phone] Need for vaccination; Coronary artery disease, angina presence unspecified , unspecified vessel or lesion type, unspecified whether sycuan or transplanted heart; Chronic systolic heart failure (HCC); ICD (implantable cardioverter-defibrillator) in place; Recurrent pulmonary emboli (HCC); ANNE (obstructive sleep apnea); Statin intolerance; Low blood pressure reading Allergies Active Allergy Reactions Severity Noted Date [...] as of this encounter (statuses as of 06/16/2019) Medications Medication Sig Dispensed Refills Start End Date Status Date aspirin 81 MG Oral Take 1 Tab by 30 Tab 0 Active Tab EC mouth DAILY. 6 magnesium oxide Take 250 mg by 0 Active (MAG-OX) 400 MG Oral mouth TWICE Tab DAILY. EPINEPHrine 0.3 0.3 mg by 1 Each 0 Active MG/0.3ML Injection Injection 8 Solution route ONCE Auto-injectorIndicat NEEDED (severe ions: H/O bee sting bee sting allergy allergy only) for up to [address] 1 Tab 25 Tab 1 Active (NITROSTAT) 0.4 MG under tongue 8 Sublingual SL Tab EVERY FIVE MINUTES NEEDED (chest pain). clotrimazole Apply to rash 113 g 1 Active (LOTRIMIN) 1 % Apply twice daily 9 externally 10-14 days CreamIndications: Tinea corporis dabigatran (PRADAXA) Take 1 Cap by 180 Cap 3 Active 150 MG Oral mouth TWICE 9 CapIndications: Hx DAILY. pulmonary embolism Glucose Blood In 1 Strip by In 150 Strip 11 Active Vitro Vitro route 9 StripIndications: FOUR TIMES Uncontrolled type 2 DAILY diabetes mellitus NEEDED with hyperosmolarity (insulin without coma, with dependant long-term current diabetic). DM use of insulin II (HCC), Type 2 Uncontrolled, diabetes mellitus Ins Dep E11.9 with other specified complication ([facility]) Lancets 30G Does not 1 Act by Does 150 Each 5 Active apply not apply 9 MiscIndications: route THREE Uncontrolled type 2 TIMES DAILY. diabetes mellitus Ell.9, insulin with hyperosmolarity dependent DM, without coma, with 28 G, long-term current Freestyle use of insulin ([facility]), Type 2 diabetes mellitus with other specified complication ([facility]) potassium chloride Take 1 Tab by 180 Tab 3 Active (K-TAB) 10 MEQ Oral mouth DAILY. 9 Tab CRIndications: Chronic systolic heart failure ([facility]) fluticasone [place] 2 Sprays 1 Bottle 0 Active (FLONASE) 50 MCG/ACT in nose 9 Nasal DIRECTED. 2 SuspensionIndication sprays in each s: Vertigo nostril once daily Insulin Lispro Inject 7-10 10 Device 11 Active (HUMALOG KWIKPEN) Units beneath 9 100 UNIT/ML the skin THREE Subcutaneous TIMES DAILY Solution WITH MEALS. Pen-injector Does not tolerate novolog Spironolactone 50 MG TAKE ONE 90 Tab 3 Active Oral TabIndications: TABLET BY 9 Chronic systolic MOUTH EVERY heart failure (HCC) DAY fluconazole Take 1 Tab by 1 Tab 0 Active (DIFLUCAN) 150 MG mouth DAILY. 9 Oral TabIndications: Cellulitis of right lower extremity CRESTOR 40 MG Oral Take 1 Tab by 90 Tab 3 Active TabIndications: mouth DAILY. 9 Coronary artery disease involving sycuan coronary artery of sycuan heart without angina pectoris BD PEN NEEDLE MATIAS USE 150 Each 5 Active U/F 32G X 4 MM Does DIRECTED 4 9 not apply TIMES DAILY MiscIndications: Uncontrolled type 2 diabetes mellitus with hyperosmolarity without coma, with long-term current use of insulin ([facility]) furosemide (LASIX) Take 40 mg by 0 Active 40 MG Oral Tab mouth TWICE DAILY. metoprolol succinate TAKE ONE 180 Tab 3 Active (TOPROL XL) 100 MG TABLET BY 9 Oral TABLET SR 24 MOUTH TWICE A HRIndications: DAY Chronic systolic heart failure ([facility]) acetaminophen-codein Take 1 Tab by 30 Tab 0 Active e (TYLENOL #3) mouth EVERY 9 300-30 MG Oral FOUR HOURS TabIndications: Pain NEEDED (severe in both hands, pain). Max Chronic pain Daily Amount: syndrome 6 Tabs. Chronic pain syndrome LANTUS SOLOSTAR 100 Inject 38-40 10 Each Active UNIT/ML Subcutaneous Units beneath 9 Solution the skin DAILY Pen-injectorIndicati AT 1400. PRISCILA ons: Type 2 diabetes mellitus with complication, with long-term current use of insulin (HCC) albuterol HFA Take 2 Puffs 2 Inhaler 11 Active (VENTOLIN HFA) 108 by inhalation 9 (90 Base) MCG/ACT EVERY FOUR Inhalation Aero HOURS SolnIndications: NEEDED (SOB- Wheezing, Chronic Bronchitis). obstructive pulmonary disease, unspecified COPD type ([facility]) albuterol 3 mL by 125 Vial 1 Active (PROVENTIL, Inhalation-SVN 9 VENTOLIN) (2.5 route EVERY MG/3ML) 0.083% FOUR HOURS Inhalation Nebu NEEDED (severe SolnIndications: wheezing). Wheezing, Chronic obstructive pulmonary disease, unspecified COPD type ([facility]) Clindamycin HCl 300 Take 1 Cap by 30 Cap 0 06/26/20 Active MG Oral mouth THREE 9 19 CapIndications: TIMES DAILY Scratch mata for 10 days. umeclidinium bromide Take 1 INHL by 1 Each 5 06/16/20 Discontinued (INCRUSE ELLIPTA) inhalation 8 19 (Drug 62.5 MCG/INH DAILY. Interaction) Inhalation AEROSOL POWDER, BREATH ACTIVATED albuterol HFA Take 2 Puffs 1 Inhaler 5 06/16/20 Discontinued (VENTOLIN HFA) 108 by inhalation 9 19 (Reorder) (90 Base) MCG/ACT EVERY FOUR Inhalation Aero HOURS SolnIndications: NEEDED (SOB- Wheezing Bronchitis). metoprolol succinate Take 100 mg by 0 06/16/20 Discontinued (TOPROL XL) 100 MG mouth TWICE 19 (Therapy Oral TABLET SR 24 HR DAILY. Completed) CRESTOR 40 MG Oral TAKE ONE 90 Tab 3 06/16/20 Discontinued TabIndications: TABLET BY 9 19 (Therapy Coronary artery MOUTH EVERY Completed) disease involving DAY sycuan coronary artery of sycuan heart without angina pectoris LANTUS SOLOSTAR 100 Inject 38 10 Each 11 06/16/20 Discontinued UNIT/ML Subcutaneous Units beneath 9 19 (Reorder) Solution the skin DAILY Pen-injector AT 1400. PRISCILA documented as of this encounter (statuses as of 06/16/2019) Active Problems Problem Noted Date Chronic obstructive pulmonary disease 11/24/2018 Recurrent pulmonary emboli 11/24/2018 Moderate episode of recurrent major depressive disorder 11/24/2018 Uncontrolled type 2 diabetes mellitus with hyperosmolarity without coma, 01/27 with long-term current use of insulin Mitral valve insufficiency 01/06/2018 Current use of long-term anticoagulation 01/06/2018 ICD (implantable cardioverter-defibrillator) in place 10/14/2017 Hx pulmonary embolism 12/08/2016 ANNE (obstructive sleep apnea) 08/20/2016 Overview: [place] [facility] [place] [facility] [place]ritis 05/04/2016 Type 2 diabetes mellitus with complication, with long-term current use of insulin Coronary artery disease 05/04/2016 H/O bee sting allergy 05/04/2016 Coronary artery disease involving sycuan coronary artery of sycuan heart 04/01 without angina pectoris Pacemaker 07/27/2011 Overview: Mfg. [employer] Model: V-[id number] ATLAS VR Date of Implant: OCTOBER 25, 2006 Chronic systolic heart failure 07/27/2011 Paroxysmal VT 07/27/2011 Other left bundle branch block 07/27/2011 CAD (coronary artery disease) 10/22/2006 Acute myocardial infarction, unspecified site, initial episode of care 2005 documented as of this encounter (statuses as of 06/16/2019) Immunizations Name Administration Dates Next Due Influenza (IM) Preservative Free 06/16/2019, 07/13/2018, 07/26/2017 Influenza (IM) W/Pres 06/15/2016 Pneumococcal [...] Sign Reading Time Taken Comments Blood Pressure 100/60 06/16/2019 9:34 AM EDT Pulse 66 06/16/2019 9:34 AM EDT Temperature 36.4 06/16/2019 9:34 AM EDT C (97.6 F) Respiratory Rate - - Oxygen Saturation 99% 06/16/2019 9:34 AM EDT Inhaled Oxygen Concentration - - Weight 105.7 kg (233 lb) 06/16/2019 9:34 AM EDT Height 172.7 cm (5' 8") 06/16/2019 9:34 AM EDT Body Mass Index 35.43 06/16/2019 9:34 AM EDT documented in this encounter Patient Instructions Patient InstructionsGia Carson MD - 06/16/2019 10:00 AM EDTYou have a dog scratch on your left arm: If it starts to look infected start clindamycin. I sent in clindamycin 300 mg to take three times a day x 10 days. Keep it on hand. I refilled your inhaler and nebulizer albuterol Please repeat laboratory tests in 2.3-3 months and see me a week later. Stay hydrated. Call Hermann Valera MD if your BP goes lower for med adjustment. 10 :04 AM EDT documented in this encounter Progress Notes Gia Carson MD - 06/16/2019 10:00 AM EDT Nursing Notes: Maddie Segovia LPN 06/16/2019 9:44 AM Signed Chief Complaint Patient presents with Check Up follow on diabetes [employer] Manager: Hermann Valera MD Oyster Sorter: Dr Bucio SUBJECTIVE: Kinjal Alcantar is an 63-y.o. female who presents for evaluation and treatment of Type 2 diabetes mellitus, congestive heart failure, cellulitis (March) Family history: positive for diabetes in the patients Maternal Grandfather. Previous treatment modalities employed include diet, oral agents and insulin injections. Current treatment includes diet, oral agents and insulin injections. She takes Lantus 25-34 units, did not go up to 38 units. She agrees to do so. Mealtime insulin is 0 to 12 units Has not been sleeping, worried about her daughters. She is staying with one, due to have a baby. Has tried Benadryl Current monitoring regimen: home blood tests - multiple times daily Home blood sugar records: 130-140's, some 190 during the day Last HgbA1c: Lab Results Component Value Date GLYCO 9.5 (H) 05/12/2019 GLYCO 9.5 (H) 11/16/2018 GLYCO 8.9 (H) 08/15/2018 Last eye exam: Not done Last microalbumin: 04/22/19 Last microfilament foot exam: 11/24/18 LDL: Lab Results Component Value Date CHOL 87 08/15/2018 TRIG 78 08/15/2018 HDL 22 (L) 08/15/2018 LDL 49 08/15/2018 LDLHDLRATIO 2.2 08/15/2018 CHOLHDLRATIO 4.0 08/15/2018 Immunizations: Immunization History Administered Date(s) Administered Influenza (IM) Preservative Free 07/26/2017, 07/13/2018 Influenza (IM) W/Pres 06/15/2016 Pneumococcal Conjugate Vaccine 07/21/2013 Pneumococcal Conjugate(13 Valent) 06/15/2016 Pended Date(s) Pended Influenza (IM) Preservative Free 06/16/2019 Diabetic complications: cardiovascular disease Cardiovascular risk factors: diabetes mellitus and obesity Outpatient Medications as of 06/16/2019 Medication Sig Dispense Refill acetaminophen-codeine (TYLENOL #3) 300-30 MG Oral Tab Take 1 Tab by mouth EVERY FOUR HOURS NEEDED (severe pain). Max Daily Amount: 6 Tabs. Chronic pain syndrome 30 Tab 0 albuterol HFA (VENTOLIN HFA) 108 (90 Base) MCG/ACT Inhalation Aero Soln Take 2 Puffs by inhalation EVERY FOUR HOURS NEEDED (SOB- Bronchitis). 1 Inhaler 5 aspirin 81 MG Oral Tab EC Take 1 Tab by mouth DAILY. 30 Tab 0 BD PEN NEEDLE MATIAS U/F 32G X 4 MM Does not apply Misc USE DIRECTED 4 TIMES DAILY 150 Each 5 clotrimazole (LOTRIMIN) 1 % Apply externally Cream Apply to rash twice daily 10-14 days 113 g1 CRESTOR 40 MG Oral Tab Take 1 Tab by mouth DAILY. 90 Tab 3 CRESTOR 40 MG Oral Tab TAKE ONE TABLET BY MOUTH EVERY DAY 90 Tab 3 dabigatran (PRADAXA) 150 MG Oral Cap Take 1 Cap by mouth TWICE DAILY. 180 Cap 3 EPINEPHrine 0.3 MG/0.3ML Injection Solution Auto-injector 0.3 mg by Injection route ONCE NEEDED (severe bee sting allergy only) for up to 1 dose. 1 Each 0 fluconazole (DIFLUCAN) 150 MG Oral Tab Take 1 Tab by mouth DAILY. 1 Tab 0 fluticasone (FLONASE) 50 MCG/ACT Nasal Suspension [place] 2 Sprays in nose DIRECTED. 2 sprays in each nostril once daily 1 Bottle 0 furosemide (LASIX) 40 MG Oral Tab Take 40 mg by mouth TWICE DAILY. Glucose Blood In Vitro Strip 1 Strip by In Vitro route FOUR TIMES DAILY NEEDED (insulin dependant diabetic). DM II Uncontrolled, Ins Dep E11.9 150 Strip 11 Insulin Lispro (HUMALOG KWIKPEN) 100 UNIT/ML Subcutaneous Solution Pen- injector Inject 7-10 Units beneath the skin THREE TIMES DAILY WITH MEALS. Does not tolerate novolog 10 Device 11 Lancets 30G Does not apply Misc 1 Act by Does not apply route THREE TIMES DAILY. Ell.9, insulin dependent DM, 28 G, Freestyle 150 Each 5 LANTUS SOLOSTAR 100 UNIT/ML Subcutaneous Solution Pen-injector Inject 38 Units beneath the skin DAILY AT 1400. PRISCILA 10 Each 11 magnesium oxide (MAG-OX) 400 MG Oral Tab Take 250 mg by mouth TWICE DAILY. metoprolol succinate (TOPROL XL) 100 MG Oral TABLET SR 24 HR Take 100 mg by mouth TWICE DAILY. metoprolol succinate (TOPROL XL) 100 MG Oral TABLET SR 24 HR TAKE ONE TABLET BY MOUTH TWICE ADAY 180 Tab 3 nitroglycerin (NITROSTAT) 0.4 MG Sublingual SL Tab Place 1 Tab under tongue EVERY FIVE MINUTES NEEDED (chest pain). 25 Tab 1 potassium chloride (K-TAB) 10 MEQ Oral Tab CR Take 1 Tab by mouth DAILY. 180 Tab 3 Spironolactone 50 MG Oral Tab TAKE ONE TABLET BY MOUTH EVERY DAY 90 Tab 3 umeclidinium bromide (INCRUSE ELLIPTA) 62.5 MCG/INH Inhalation AEROSOL POWDER, BREATH ACTIVATED Take 1 INHL by inhalation DAILY. 1 Each 5 No current facility-administered medications on file as of 06/16/2019. Allergies Allergen Reactions Altace [Fd&C Blue #2-Ramipril] [...] [Pneumococcal 13-Charu Conj Vacc] Swelling Arm swelling Past Medical History: Diagnosis Date AICD (automatic cardioverter/defibrillator) present Anticoagulated by anticoagulation treatment Eliquis as of 02/2016 Arthritis Cardiac rhythm disorder or disturbance or change Chronic systolic heart failure (HCC) 07/27/2011 Congestive heart failure (HCC) EF 20% on Echo 02/2016 Coronary artery disease Coronary artery disease involving sycuan coronary artery of sycuan heart without angina pectoris 04/01/2016 Diabetes mellitus (HCC) saw Dr. Ryan in the past, but no longer takes Keith. Essential (primary) hypertension Heart attack (HCC) 06/2006 x 2 in one week; airlifte to [place] Pacemaker Paroxysmal VT (HCC) 07/27/2011 Pulmonary hypertension (HCC) Sleep apnea 2014 Has cpap, Dr. Jimenez Past Surgical History: Procedure Laterality Date CATHETERIZATION HEART RIGHT AND LEFT Right 05/18/2017 Procedure: CATHETERIZATION HEART RIGHT AND LEFT; Surgeon: Francisco Murry MD ; Location: [facility] SECTION NOS x 2 COLONOSCOPY years ago, declines repeat INSERTION BI-VENTRICULAR ICD 08/10/2011 Procedure:INSERTION BI-VENTRICULAR ICD; Surgeon:ROB BLAIR; Location:[facility]; Laterality:N/A;UPGRADE TO BI-V ICD LT [place] APPENDECTOMY NJ INS NEW/RPLCMT PRM PACEMAKR W/TRANS ELTRD ATRIAL NJ TOTAL ABDOM HYSTERECTOMY TONSILLECTOMY Family History Problem Relation Age of Onset Heart Mother Cancer Father with bone metastases, possible pancreatic Heart Sister RBBB Cancer Sister breast cancer Stroke Paternal Grandfather Heart Maternal Grandfather Heart Maternal Grandmother Diabetes Maternal Grandmother Social History Tobacco Use Smoking status: Former Smoker Packs/day: 0.50 Years: 22.00 Pack years: 11.00 Types: Cigarettes Last attempt to quit: 06/20/2006 Years since quittin.9 Smokeless tobacco: Never Used Substance Use Topics Alcohol use: No Review Of Systems Skin: negative for rash Eyes: negative for blurred vision or vision changes Ears/Nose/Throat: negative Respiratory: Denies shortness of breath or URI symptoms Cardiovascular: negative for chest pain or pressure, no orthopnea Gastrointestinal: negative for abdominal pain, difficulty swallowing Genitourinary: negative for dysuria or frequency Musculoskeletal: negative for edema, negative for ankle pain Neurologic: negative for dizziness, syncope Psychiatric: negative for depression Hematologic/Lymphatic/Immunologic: negative for unexpected weight loss Endocrine: negative for polydipsia, polyuria Cardiovascular ROS: no chest pain or dyspnea on exertion OBJECTIVE: BP 100/60 (BP Location: Right arm, Patient Position: Sitting) | Pulse 66 | Temp 97.6 F (36.4 C) (Tympanic) | Ht 5' 8" (1.727 m) | Wt 233 lb ( 105.7 kg) | SpO2 99% | ? No | BMI 35.43 kg/m General appearance: alert, no distress, oriented times 3 Skin: Skin color, texture, turgor normal. No rashes or lesions. Eyes: conjunctivae/corneas clear. PERRL, EOM's grossly intact. Ears: negative findings: external ears normal to inspection and palpation Oropharynx: negative findings: lips normal without lesions Neck: Neck supple. No cervical or supraclavicular adenopathy. Thyroid symmetric , normal size. Carotids 4/4 without bruits. Lungs:. Lungs clear with good aeration. Chest symmetrical. Normal breath sounds bilaterally. Heart: Regular rate and rhythm. No murmurs, clicks or gallops. Abdomen: Abdomen soft, non-tender. BS normal. No masses, organomegaly or hernia. No bruits. Extremities: Extremities without deformities, edema, or skin discoloration. Station and gait normal. Peripheral pulses: dorsalis pedis=4/4, Neuro: Gait normal, strength grossly normal and symmetric. Left arm: superficial scratch, from a dog. Not a bite: minimal erythema, no drainage ASSESSMENT/PLAN: ICD-9-CM ICD-10-CM 1. Type 2 diabetes mellitus with complication, with long-term current use of insulin ([facility]) 250.90 E11.8 LANTUS SOLOSTAR 100 UNIT/ML Subcutaneous Solution Pen -injector V58.67 Z79.4 GLYCOHEMOGLOBIN A1C BASIC METABOLIC PANEL 2. Wheezing 786.07 R06.2 albuterol HFA (VENTOLIN HFA) 108 (90 Base) MCG/ACT Inhalation Aero Soln albuterol (PROVENTIL, VENTOLIN) (2.5 MG/3ML) 0.083% Inhalation Nebu Soln 3. Chronic obstructive pulmonary disease, unspecified COPD type ([facility]) 496 J44.9 albuterol HFA (VENTOLIN HFA) 108 (90 Base) MCG/ACT Inhalation Aero Soln albuterol (PROVENTIL, VENTOLIN) (2.5 MG/3ML) 0.083% Inhalation Nebu Soln 4. Scratch mata 919.0 T14.8XXA Clindamycin HCl 300 MG Oral Cap 5. Need for vaccination V05.9 Z23 NJ FLU VACCINE PRES FREE 6MOS+ ADMINISTRATION VACCINE SINGLE 6. Coronary artery disease, angina presence unspecified, unspecified vessel or lesion type, unspecified whether sycuan or transplanted heart 414.00 I25.10 7. Chronic systolic heart failure ([facility]) 428.22 I50.22 8. ICD (implantable cardioverter-defibrillator) in place V45.02 Z95.810 9. Recurrent pulmonary emboli ([facility]) 415.19 I26.99 10. ANNE (obstructive sleep apnea) 327.23 G47.33 11. Statin intolerance 995.27 Z78.9 12. Low blood pressure reading 796.3 R03.1 Rx: ALEX? allergy Statin? intolerant Metformin? intolerant Reviewed concepts of diabetes self-management stressing the primary role of the patient in monitoring and maintaining control of Diabetes. Recommended diet, exercise, and weight loss. Follow up every 2-3 months is recommended, sooner as needed. Patient Instructions You have a dog scratch on your left arm: If it starts to look infected start clindamycin. I sent in clindamycin 300 mg to take three times a day x 10 days. Keep it on hand. I refilled your inhaler and nebulizer albuterol Please repeat laboratory tests in 2.3-3 months and see me a week later. Stay hydrated. Call Hermann Valera MD if your BP goes lower for med adjustment. Author: Gia Carson MD 06/16/2019 10:12 documented in this encounter Plan of Treatment Date Type Specialty Care Team Description 07/17/2019 Office Visit Cardiology Hermann Valera MD [address] [place] [address] 08/01/2019 [facility] 08/08/2019 Office Visit Family Practice Gia Carson MD [address] [place] [address] 09/21/2019 Office Visit Pulmonary Colin Bucio MD [address] [place] [address] 11/30/2019 [facility] Name Type Priority Associated Diagnoses Order Schedule ADMINISTRATION VACCINE Procedures Routine Need for vaccination Ordered: SINGLE 06/16/2019 GLYCOHEMOGLOBIN A1C Lab Routine Type 2 diabetes Expected: mellitus with 09/15/2019 complication, with (Approximate), long-term current use Expires: of insulin ([facility]) 11/16/2019 BASIC METABOLIC PANEL Lab Routine Type 2 diabetes Expected: mellitus with 09/15/2019 complication, with (Approximate), long-term current use Expires: of insulin ([facility]) 11/16/2019 Health Maintenance Due Date Last Done Comments ZOSTER IMMUNIZATION SERIES 2004 (1 of 2) Diabetic Eye Exam 06/07/2018 06/07/2017 INFLUENZA VACCINE (#1) 2019 07/13/2018, 07/26/2017, 06/15/2016 HEMOGLOBIN A1C 08/12/2019 05/12/2019, 02/07/2019, 11/16/2018, Additional [...] Weight CHF 13 No Alli, beth vs. (06/16/2019 Gia Leija, 18 mo min 9:34 AM EDT) (lbs) < 5 Note: This is [...] Gia Pruitt (PHQ-9) total score < 5 EST) MD [facility] Note: This is an individualized treatment (depression) goal for Kinjal Alcantar: Displayed above is your goal for a depression screening (PHQ-9) score that would indicate good control of your depression. Glycohemoglobin A1c < 8.0 Diabetes 9.5 (05/12/2019 3:41 Gia Pruitt PM EDT) MD [facility] Note: This is an individualized treatment (diabetes control, HgbA1C) goal for Kinjal Alcantar: Displayed above is your progress towards your HgbA1C goal. Your goal is shown above (on the left); your most recent HgbA1C is shown on the right. Note that lower numbers are better. Keep immunizations current Lifestyle No Gia Carson MD Note: This is an individualized lifestyle goal for Kinjal Alcantar: Please be sure to keep up-to-date on recommended immunizations. For example, this would include a yearly influenza vaccine. Immunization status can be seen by looking at the Health Maintenance sections of your e[employer], Plan of Care, and any After Visit Summaries. Consume a [id number] diet Lifestyle No Gia Carson MD Note: This is an individualized lifestyle goal for Kinjal Alcantar: Please do not add additional salt to your food. Additional salt may lead to fluid retention and worsen your congestive heart failure. Keep a regular sleep schedule Lifestyle No Gia Carson MD Note: This [...] of this encounter Implants Implanted Type Area Commercial Insurance Underwriter Device Shelf Model / Identifier Expiration Serial / Date Lot Unify [id number] - [id number] Left: [employer], 11/17/2012 [id number] / Implanted: Qty: 1 on 08/10/2011 at [facility] [employer] [id number] / Lead Tendril # [id number] - [id number] Left: [employer] 03/19/2014 [id number] / Implanted: Qty: 1 on 08/10/2011 at [facility]/ [place] [id number] / R 1158t Quick[employer] Lead - [id number] Left: [employer], 02/17/2014 [id number] / Implanted: Qty: 1 on 08/10/2011 at [facility] [id number] / Cassie Lovell Mp [id number] User Experience Designer-D - [id number] N/A: [facility] , 04/19/2019 [id number] / Implanted: Qty: 1 on 06/28/2017 by Rob Blair MD at [facility] [id number] / Opt[employer]ense Lead - [id number] N/A: Chest [facility], [id number] / Implanted: Qty: 1 on 06/28/2017 by Rob Blair MD at [facility] [id number] / Lda 210q/65 [employer] - [id number] N/A: [facility], 2017 [id number] / Implanted: Qty: 1 on 06/28/2017 by Rob Blair MD at [facility] [id number] / Quartet 1458q-86cm - [id number] N/A: [facility], 11/18/2019 [id number] / Implanted: Qty: 1 on 06/28/2017 by Rob Blair MD at [facility] [id number] / documented as of this encounter Results Not on filedocumented in this encounter Visit Diagnoses Diagnosis Type 2 diabetes mellitus with complication, with long-term current use of insulin (HCC) - Primary Wheezing Chronic obstructive pulmonary disease, unspecified COPD type (HCC) Scratch mata Abrasion or friction burn of other, multiple, and unspecified sites, without mention of infection Need for vaccination Need for prophylactic vaccination and inoculation against unspecified single disease Coronary artery disease, angina presence unspecified, unspecified vessel or lesion type, unspecified whether sycuan or transplanted heart Chronic systolic heart failure (HCC) Chronic systolic heart failure ICD (implantable cardioverter-defibrillator) in place Recurrent pulmonary emboli (HCC) Other pulmonary embolism and infarction ANNE (obstructive sleep apnea) Obstructive sleep apnea (adult) (pediatric) Statin intolerance Other drug allergy Low blood pressure reading Nonspecific low blood pressure reading documented in this encounter Insurance Payer Benefit Plan / Subscriber ID Effective Dates Phone Address Type Group KEITH MEDICARE KEITH CARE xxxxxxxxxxx 2016-Present [place] Guarantor Name Account Type Relation to Date of Phone Billing Patient Address Kinjal Alcantar Personal/Family 1955 [phone]) [address] [place], [place] (Work) [address] documented as of this encounter Advance Directives Type Date Recorded Patient Knowledge Engineer Explanation Advance Directives 12/16/2018 9:01 AM Health Care Proxy POLST-MOLST 12/16/2018 9:01 AM MOLST - [place] [facility]
[2019-06-21 15:58] LABS: INR 1.62 (0.82-1.09)
[2019-06-21 16:06] LABS: ABS Basophils 0.1 10^3/ul (0-0.2); ABS Eosinophils 0.1 10^3/ul (0-0.6); ABS Lymphocytes 1.3 10^3/ul (1.0-4.8); ABS Monocytes 0.5 10^3/ul (0-0.8); ABS Neutrophils 5.3 10^3/ul (1.5-7.7); Eosinophil % 1.3 %; Hematocrit 43 % (35-47); Hemoglobin 13.8 g/dL (12.0-16.0); Mean Corpuscular HGB Conc 32 g/dL (31-36); Mean Corpuscular Hemoglobin 26 pg (27-31); Mean Corpuscular Volume 81 fL (80-97); Mean Platelet Volume 8.2 fL (7.4-10.4); Nucleated Red Blood Cells % 0.1; Platelet Count 274 10^3/uL (150-450); Red Blood Count 5.36 10^6 /uL (3.70-4.87); Red Cell Distribution Width 19 % (10-15); White Blood Count 7.3 10^3/uL (3.5-10.8)
[2019-06-21 16:13] LABS: Albumin 3.6 g/dL (3.2-5.2); BUN/Creatinine Ratio 14.9 (8-20); Calcium 9.2 mg/dL (8.6-10.3); EGFR African American 37.1 (>60); EGFR Non-African American 30.7 (>60); Globulin 3.7 g/dL (2-4); Potassium 4.5 mmol/L (3.5-5.0); Total Bilirubin 0.9 mg/dL (0.2-1.0); Total Protein 7.3 g/dL (6.4-8.9); Troponin I 0.03 ng/mL (<0.04)
[2019-06-21 16:42] VITALS: BP 112/64
== END 2019-06-21 17:49 | disposition left against medical advice (07) ==
LOC: ED 15:30
DX: R07.89 Other chest pain (principal); Z53.21 Procedure and treatment not carried out due to patient leaving prior to being seen by health care provider
CPT/HCPCS: 36415; 80053; 84484; 85025; 85610; 93005; 99281

== ENCOUNTER 2019-09-01 10:33 | Inpatient (IN) | payer MEDICARE, OTHER ==
--- OUTSIDE RECORDS SUMMARY | 2019-09-01 10:56 | XMS REPORT | Summary of Care ---
:1955 Author Organization [facility] Address [address] [place] [address] Care Team Providers Name Role Phone Gia Carson MD Primary Care Provider Sheila Atkinson RN Unavailable Reason for Visit Reason Comments Follow Up Pt. in for a Follow up on CHF, and CAD. Reports treatment for SOB early June. Encounter Details Date Type Department Care Team Description 07/17/2019 Office Visit Kwasi Valera, Chronic systolic heart failure (HCC) (Primary Dx); Cardiology MD Hermann Coronary artery disease involving ottawa coronary artery of ottawa heart without angina pectoris; [address] Pulmonary hypertension (HCC); [place] [address] [place] [address] Ischemic cardiomyopathy; [phone] Non-rheumatic mitral regurgitation Allergies Active Allergy Reactions [...] at night Modi-Glimepiride Hydromorphone Unknown Reaction 06/30/2006 Influenza Vaccines Swelling Medium 06/20/2019 Flulaval--entire arm swelled from shoulder to wrist Latex Unknown Reaction 06/30/2006 Levothyroxine Dermatologic Reaction [...] as of this encounter (statuses as of 07/17/2019) Medications Medication Sig Dispensed Refills Start Date [...] only) for allergy up to [address] 1 Tab under 25 Tab [...] long-term G, Freestyle current use of insulin ([facility]), Type 2 diabetes mellitus with other specified complication ([facility]) potassium chloride Take 1 Tab by 180 Tab 3 11/24/2018 Active (K-TAB) 10 MEQ Oral Tab mouth DAILY. CRIndications: Chronic systolic heart failure ([facility]) fluticasone (FLONASE) [place] 2 Sprays in 1 Bottle 0 12/22/2018 Active 50 MCG/ACT Nasal nose DIRECTED. SuspensionIndications: 2 sprays in each Vertigo nostril once daily Insulin Lispro (HUMALOG Inject 7-10 Units 10 Device 11 01/09/2019 Active KWIKPEN) 100 UNIT/ML beneath the skin Subcutaneous Solution THREE TIMES DAILY Pen-injector WITH MEALS. Does not tolerate novolog Spironolactone 50 MG TAKE ONE TABLET 90 Tab 3 03/20/2019 Active Oral TabIndications: BY MOUTH EVERY Chronic systolic heart DAY failure ([facility]) fluconazole (DIFLUCAN) Take 1 Tab by 1 Tab 0 03/22/2019 Active 150 MG Oral mouth DAILY. TabIndications: Cellulitis of right lower extremity CRESTOR 40 MG Oral Take 1 Tab by 90 Tab 3 03/22/2019 Active TabIndications: mouth DAILY. Coronary artery disease involving ottawa coronary artery of ottawa heart without angina pectoris BD PEN NEEDLE MATIAS U/F USE DIRECTED 4 150 Each 5 04/24/2019 Active 32G X 4 MM Does not TIMES DAILY apply MiscIndications: Uncontrolled type 2 diabetes mellitus with hyperosmolarity without coma, with long-term current use of insulin ([facility]) furosemide (LASIX) 40 Take 40 mg by 0 Active MG Oral Tab mouth TWICE DAILY. metoprolol succinate TAKE ONE TABLET 180 Tab 3 05/29/2019 Active (TOPROL XL) 100 MG Oral BY MOUTH TWICE A TABLET SR 24 DAY HRIndications: Chronic systolic heart failure ([facility]) acetaminophen-codeine Take 1 Tab by 30 Tab 0 06/06/2019 Active (TYLENOL #3) 300-30 MG mouth EVERY FOUR Oral TabIndications: HOURS NEEDED Pain in both hands, (severe pain). Chronic pain syndrome Max Daily Amount: 6 Tabs. Chronic pain syndrome LANTUS SOLOSTAR 100 Inject 38-40 10 Each 11 06/16/2019 Active UNIT/ML Subcutaneous Units beneath the Solution skin DAILY AT Pen-injectorIndications 1400. PRISCILA : Type 2 diabetes mellitus with complication, with long-term current use of insulin (HCC) albuterol HFA (VENTOLIN Take 2 Puffs by 2 Inhaler 11 06/16/2019 Active HFA) 108 (90 Base) inhalation EVERY MCG/ACT Inhalation Aero FOUR HOURS SolnIndications: NEEDED (SOB- Wheezing, Chronic Bronchitis). obstructive pulmonary disease, unspecified COPD type (HCC) albuterol (PROVENTIL, 3 mL by 125 Vial 1 06/16/2019 Active VENTOLIN) (2.5 MG/3ML) Inhalation-SVN 0.083% Inhalation Nebu route EVERY FOUR SolnIndications: HOURS NEEDED Wheezing, Chronic (severe obstructive pulmonary wheezing). disease, unspecified COPD type (HCC) LANTUS SOLOSTAR 100 Inject 38-40 10 Device 11 06/19/2019 Active UNIT/ML Subcutaneous Units beneath the Solution Pen-injector skin DAILY. PRISCILA, please give her 2 boxes Omeprazole delayed rel Take 20 mg by 180 Cap 3 07/11/2019 Active cap 20 MG Oral CAPSULE mouth TWICE DELAYED DAILY. New dose RELEASEIndications: Gastroesophageal reflux disease without esophagitis Hospital, Clinic, or Other Ordered Dose Route Frequency Start Date End Date Status Facility Administered Medication albuterol (PROVENTIL, 2.5 mg IN-SVN NOW 06/26/2019 Active VENTOLIN) nebulizer solution (RT ADMIN) (5 MG/ML) 0.5%Indications: Wheezing documented as of this encounter (statuses as of 07/17/2019) Active Problems Problem Noted Date Chronic obstructive pulmonary disease 11/24/2018 Recurrent pulmonary emboli 11/24/2018 Moderate episode of recurrent major depressive disorder 11/24/2018 Uncontrolled type 2 diabetes mellitus with hyperosmolarity without coma, 01/27 with long-term current use of insulin Mitral valve insufficiency 01/06/2018 Current use of intermediate anticoagulation 01/06/2018 ICD (implantable cardioverter-defibrillator) in place 10/14/2017 Hx pulmonary embolism 12/08/2016 ANNE (obstructive sleep apnea) 08/20/2016 Overview: CPAP through [facility]- NPSG through [facility] Polyarthritis 05/04/2016 Type 2 diabetes mellitus with complication, with long-term current use of insulin Coronary artery disease 05/04/2016 H/O bee sting allergy 05/04/2016 Coronary artery disease involving ottawa coronary artery of ottawa heart 04/01 without angina pectoris Pacemaker 07/27/2011 Overview: Mfg. [employer] Model: V-193 ATLAS VR Date of Implant: OCTOBER 25, 2006 Chronic systolic heart failure 07/27/2011 Paroxysmal VT 07/27/2011 Other left bundle branch block 07/27/2011 CAD (coronary artery disease) 10/22/2006 Acute myocardial infarction, unspecified site, initial episode of care 2005 documented as of this encounter (statuses as of 07/17/2019) Immunizations Name Administration Dates Next Due Influenza [...] Sign Reading Time Taken Comments Blood Pressure 108/70 07/17/2019 8:04 AM EDT Pulse 70 07/17/2019 8:04 AM EDT irregular Temperature - - Respiratory Rate - - Oxygen Saturation - - Inhaled Oxygen Concentration - - Weight 105.2 kg (232 lb) 07/17/2019 8:04 AM EDT Height 172.7 cm (5' 8") 07/17/2019 8:04 AM EDT Body Mass Index 35.28 07/17/2019 8:04 AM EDT documented in this encounter Patient Instructions Patient InstructionsHermann Valera MD - 07/17/2019 8:20 AM EDT No medication changes today. Continue to work on a low sodium diet. Follow up with me in 2 months or sooner if needed. documented in this encounter Progress Notes Hermann Valera MD - 07/17/2019 8:20 AM EDT [place] [facility] Note Patient: Kinjal Alcantar Date of : 1955 Date of Service: 07/17/2019 REFERRING PRACTITIONER: Gia Carson PRIMARY CARE PROVIDER: Gia Carson Chief Complaint: Chief Complaint Patient presents with Follow Up Pt. in for a Follow up on CHF, and CAD. Reports treatment for SOB early June. History of Present Illness: We had the pleasure of seeing Kinjal Alcantar today at the [facility] Office. She is a 63-y.o. 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 Since her last visit with me in early May, she was recently in the [facility] ER at the beginning of June for CP; had labs and EKG donethere (which were stable) but left AMA after not being seen for over 3 hours. She took a NTG and her CP resolved so she left. She followed up with Dr. Carson on 06/26 and a CXR was unchanged at that time. She put her on clindamycin for bronchitis and possible cellulitis of her RLE. From a symptom standpoint now, she reports that she hasn't had any recurrent CP. She says that her episode felt like a sharp midsternal pain that radiated to her back. CP resolved within a couple minutes with the NTG. Breathing is fairly stable and she says that it's gotten better with the course of abx that Dr. Carson prescribed. Her RLE edema also improved. No syncope. No sig orthopnea orPND and her weight has been stable. Patient Active Problem List Diagnosis Acute myocardial infarction, unspecified site, initial episode of care CAD (coronary artery disease) Pacemaker Chronic systolic heart failure (HCC) Paroxysmal VT (HCC) Other left bundle branch block Coronary artery disease involving ottawa coronary artery of ottawa heart without angina pectoris Polyarthritis Type 2 diabetes mellitus with complication, with long-term current use of insulin (HCC) Coronary artery disease H/O bee sting allergy ANNE (obstructive sleep apnea) Hx pulmonary embolism ICD (implantable cardioverter-defibrillator) in place Mitral valve insufficiency Current use of emt intermediate anticoagulation Uncontrolled type 2 diabetes mellitus with [...] Coronary artery disease Coronary artery disease involving ottawa coronary artery of ottawa heart without angina pectoris 04/01/2016 Diabetes mellitus (HCC) saw Dr. Ryan in the past, but no longer takes [place]. Essential (primary) hypertension Heart attack (HCC) 06/2006 x 2 in one week; airlifte to [place] Pacemaker Paroxysmal VT (HCC) 07/27/2011 Pulmonary hypertension (HCC) Sleep apnea 2014 Has cpap, Dr. Jimenez Past Surgical History: Procedure Laterality Date CATHETERIZATION HEART RIGHT AND LEFT Right 05/18/2017 Procedure: CATHETERIZATION HEART RIGHT AND LEFT; Surgeon: Francisco Murry MD ; Location: [facility] SECTION NOS x 2 COLONOSCOPY years ago, declines repeat INSERTION BI-VENTRICULAR ICD 08/10/2011 Procedure:INSERTION BI-VENTRICULAR ICD; Surgeon:ROB BLAIR; Location:[facility]; Laterality:N/A;UPGRADE TO BI-V ICD LT MT APPENDECTOMY MT INS NEW/RPLCMT PRM PACEMAKR W/TRANS ELTRD ATRIAL MT TOTAL ABDOM HYSTERECTOMY TONSILLECTOMY Allergies Allergen Reactions Altace [Fd&C Blue #2-Ramipril] Swelling Throat swelling Cephalexin Anaphylaxis angiodema Cephalosporins Anaphylaxis Pcn [Penicillins] Anaphylaxis Dye Intravenous Radiographic Imaging Contrast Cardiac Reaction Patient had chest pain after receiving Influenza Vaccines Swelling Flulaval--entire arm swelled from shoulder to wrist Basaglar Kwikpen [Lantus] Dermatologic Reaction Itching, hives [...] (TYLENOL #3) 300-30 MG Oral Tab albuterol (PROVENTIL, VENTOLIN) (2.5 MG/3ML) 0.083% Inhalation Nebu Soln albuterol HFA (VENTOLIN HFA) 108 (90 Base) [...] LANTUS SOLOSTAR 100 UNIT/ML Subcutaneous Solution Pen-injector LANTUS SOLOSTAR 100 UNIT/ML Subcutaneous Solution Pen-injector magnesium oxide (MAG-OX) 400 MG Oral Tab metoprolol succinate (TOPROL XL) 100 MG Oral TABLET SR 24 HR nitroglycerin (NITROSTAT) 0.4 MG Sublingual SL Tab Omeprazole delayed rel cap 20 MG Oral CAPSULE DELAYED RELEASE potassium chloride (K-TAB) 10 MEQ Oral Tab CR Spironolactone 50 MG Oral Tab Family History Problem Relation Age of Onset [...] Last attempt to quit: 06/20/2006 Years since quittin.0 Smokeless tobacco: Never Used Substance and Sexual Activity Alcohol use: No Drug use: Yes Types: Prescription Sexual activity: Not on file Lifestyle Physical activity: Days per week: Not on file Minutes per session: Not on file Stress: Not on file Relationships Social connections: Talks on phone: Not on file Gets together: Not on file Attends uatsdin service: Not on file Active member of [...] Narrative Lives alone, single. Children live in [place]. 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 Review of Systems - Negative except as noted in HPI. Physical Exam: Vitals: 07/17/19 0804 BP: 108/70 BP Location: Left arm Patient Position: Sitting Pulse: 70 Weight: 232 lb (105.2 kg) Height: 5' 8" (1.727 m) Body mass index is 35.28 kg/m. General: Obese, alert 63-y.o. female in NAD HEENT: anicteric, MMM, no E/E OP, conj pink Neck: JVP difficult to see d/t body habitus, but appears to be approx 6-7 cm above the RA. No carotid bruits or LAD CV: RRR, normal s1/s2, 1-2/6 holosystolic murmur at apex as before. Pulm: CTA bilaterally without wheezes, rhonchi, or rales. Abd: soft, obese, NT, ND, +BS. No appreciable pulsatile masses or bruits. Ext: Trace bilateral lower extremity edema. No cyanosis, redness, or warmth, 1 + distal pulses Neuro: no gross focal deficits [...] 2.2 08/15/2018 CHOLHDLRATIO 4.0 08/15/2018 Cardiac Studies: ICD Interrogation 03/28/19: This visit was performed [...] Cardioverter Defibrillator function appears normal. TTE at [facility] 11/21/2018: TTE 10/06/18: FINAL IMPRESSION: Technically difficult study with limited acoustic windows and very limited endocardial visualization. Severely dilated LV with moderate left atrial enlargement. Severely reduced LV systolic function with estimated LVEF 15-20%. Moderate right heart enlargement with reduced RV contractility. Moderate mitral and tricuspid regurgitation. Moderate elevation in estimated pulmonary arterial systolic pressure. No pericardial effusion. Compared to prior [facility] echo report 11/2017, no significant changes are [...] 4. Normal cardiac output/index. Regadenoson SPECT at [facility] 05/06/17: -Large fixed defect involving the mid [...] tiny PFO NM Stress: 02/28/2016 Report from [facility] Decreased LVEF with large fixed defect of the apex consistent with infarct with marginal ischemia Distal anterior and inferior kay with marginal reversibility Left Heart Cath [facility] 2013: Repeat catheterization showing no significant stenosis in LAD. First septal large bifurcating vesselwith ostial 65%. Circumflex large and codominant with collaterals to the right. Consideration if continued to have symptoms to attempt retrograde approach to MULTIMEDIA TECHNICIAN. Assessment & Plan: Kinjal Alcantar is a 63-y.o. 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 Blair. ICD-9-CM ICD-10-CM 1. Chronic systolic heart failure (HCC) 428.22 I50.22 2. Coronary artery disease involving ottawa coronary artery of ottawa heart without angina pectoris 414.01 I25.10 3. Pulmonary hypertension (HCC) 416.8 I27.20 4. Ischemic cardiomyopathy 414.8 I25.5 5. Non-rheumatic mitral regurgitation 424.0 I34.0 1. Ischemic Cardiomyopathy with NYHA Class II-III symptoms: Pt remains fairly euvolemic today. Recommendations are as follows: Most recent LV function: 20% (assessed on 11/21/18 by [facility] echo). Beta-kem: Cont Toprol XL 100mg BID. ALEX-inhibitor or ARB: Has anaphylaxis to this med class. Could consider hydralazine/Imdur but she already has some orthostasis and lowish BPs and I'm not sure how much additional [...] on Lasix 40mg BID and doing OK. Devices: Has a [employer] BiV ICD; will cont with remote interrogations. Other: Over the past year she has had more frequent hospitalizations for CHF exacerbations and has also had a gradual worsening of renal function for 1- 2 years. I continue to feel that it would beappropriate to get her plugged in with the Advanced HF clinic in [place], and I'd be interested tosee whether they feel a repeat RHC and/or CPET may be useful in her case. Our home care liaison is meeting with her today to see if a change in insurance will allow her to see an advanced HF clinic at some point. 2. Coronary Artery Disease, s/p PCI: One episode of CP that may or may not have been anginal. No further episodes since her ER visit. I recommend the following medical regimen: Antiplatelets: [...] she has CTEPH, but VQ scan at [facility] was lowprobability in April 2018. I have offered her an empiric trial of a PDE inhibitor such as sildenafil in the past, but she hasn't wanted to try that (that may also worsen her orthostasis). Thank you for allowing me to participate in the care of Kinjalkayleen Alcantar. We will plan on f/u in ouroffice in ~2 months or sooner prn. If you have any questions or concerns please feel free to call our office at . Hermann Valera MD, 07/17/2019, 08:34 This note was created using my previous note as a template; changes were made where appropriate, andall information in the current note is up to date to the best of my knowledge.Electronically signed by Hermann Valera MD at 2018 8:51 AM EDTdocumented in this encounter Plan of Treatment Date Type Specialty Care Team Description 08/01/2019 [facility] Arrhythmia Center 08/08/2019 Office Visit Family Practice Gia Carson MD [address] [place] [address] [phone] 09/21/2019 Office Visit Pulmonary Colin Bucio MD [address] [place] [address] [phone] 11/30/2019 [facility] Arrhythmia Center Health Maintenance Due Date Last Done Comments ZOSTER IMMUNIZATION SERIES 2004 (1 of 2) Diabetic Eye Exam 06/07/2018 06/07/2017 HEMOGLOBIN A1C 08/12/2019 05/12/2019, 02/07/2019, 11/16/2018, Additional history exists DEPRESSION SCREENING 08/31/2019 08/31/2018, 08/31/2018 FOOT EXAM 11/25/2019 11/24/2018, 11/24/2018, 11/24/2018, Additional history exists LIPID DISORDER SCREENING 05/03/2020 05/03/2019, 03/22/2019, 08/15/2018, Additional history exists URINE MICROALBUMIN 05/12/2020 05/12/2019, 09/21/2018, 09/06/2017, Additional history exists INFLUENZA VACCINE Completed 06/16/2019, 07/13/2018, 07/26/2017, Additional history exists HPV IMMUNIZATION SERIES Aged Out No longer eligible based on patient's age to complete this topic MENINGOCOCCAL VACCINE IMM Aged Out No longer eligible based on patient's age to complete this topic documented as of this encounter Goals Goal Patient Goal Associated Recent Patient-Stated? Author Type Problems Progress Weight CHF 12 No Alli, increase vs. (07/17/2019 Gia Leija, 18 mo min 8:04 AM EDT) (lbs) < 5 Note: This [...] and any After Visit Summaries. Consume a [id number] diet Lifestyle No Gia Carson MD Note: [...] is an individualized self-management goal for Kinjal Hansen Ortiz: Please check your weight daily. Refer to the accompanying CHF treatment goal and call your doctor immediately for further instructions on how to respond to unexpected weight gain. documented as of this encounter Implants Implanted Type Area Carpenter Assistant Device Shelf Model / Identifier Expiration Serial / Date Lot Unify [id number] - [id number] Left: [employer], 11/17/2012 [id number] / Implanted: Qty: 1 on 08/10/2011 at [facility] [employer] [id number] / Lead Tendril # [id number] - [id number] Left: [employer] 03/19/2014 [id number] / Implanted: Qty: 1 on 08/10/2011 at [facility] MEDICAL/ PACESETTE [id number] / R 1158t Quickflex Lead - [id number] Left: [employer], 02/17/2014 [id number] / Implanted: Qty: 1 on 08/10/2011 at [facility] [employer] [id number] / Quadra Assura Mp [id number] Remote Encoding Center Manager-D - [id number] N/A: Chest [employer] , 04/19/2019 [id number] / Implanted: Qty: 1 on 06/28/2017 by Rob Blair MD at [facility] [employer] [id number] / Optisense Lead - [id number] N/A: Chest [employer], [id number] / Implanted: Qty: 1 on 06/28/2017 by Rob Blair MD at [facility] [employer] [id number] / Lda 210q/65 Optisure - [id number] N/A: Chest [employer], 2017 [id number] / Implanted: Qty: 1 on 06/28/2017 by Rob Blair MD at [facility] [id number] / Quartet 1458q-86cm - [id number] N/A: Chest [employer], 11/18/2019 [id number] / Implanted: Qty: 1 on 06/28/2017 by Rob Blair MD at [facility] [id number] / documented as of this encounter Results Not on filedocumented in this encounter Visit Diagnoses Diagnosis Chronic systolic heart failure (HCC) - Primary Chronic systolic heart failure Coronary artery disease involving ottawa coronary artery of ottawa heart without angina pectoris Pulmonary hypertension (HCC) Other chronic pulmonary heart diseases Ischemic cardiomyopathy Other specified forms of chronic ischemic heart disease Non-rheumatic mitral regurgitation Mitral valve disorders documented in this encounter Insurance Payer Benefit Plan / Subscriber ID Effective Dates Phone Address Type Group FIDELIS MEDICARE FIDELIS CARE xxxxxxxxxxx 2016-Present [facility]-MEDICARE ADVANTAGE Guarantor Name Account Type Relation to Date of Phone Billing Patient Address Kinjal Alcantar Personal/Family 1955 [phone]) [address] [place], [place] (Work) [address] documented as of this encounter Advance Directives Type Date Recorded Patient Pump Rebuilder Explanation Advance Directives 12/16/2018 9:01 AM Health Care Proxy VANNESSA-WILLIAM 12/16/2018 9:01 AM MOL - [facility]
--- OUTSIDE RECORDS SUMMARY | 2019-09-01 10:56 | XMS REPORT | Summary of Care ---
:1955 Author Organization [facility] Address [address] [place] [address] Care Team Providers Name Role Phone Gia Carson MD Primary Care Provider Sheila Atkinson RN Unavailable Reason for Referral Refer to Department Only (Routine) Status Reason Specialty Diagnoses / Referred By Referred To Procedures Contact Contact Pending Review OPTOMETRY Diagnoses Type 2 diabetes mellitus with complication, with long-term current use of insulin (HCC) Gia Carson MD [address] [place] [address] Reason for Visit Reason Comments Check Up Encounter Details Date Type Department Care Team Description 08/08/2019 Office Visit Anai Carson, Type 2 diabetes mellitus with complication, with long-term current use of insulin (HCC) (Primary Dx); Practice Gia Leija MD Pain in both hands; [address] [place] [address] Chronic pain syndrome; [place] [address] Chronic systolic heart failure (HCC); [phone] ICD (implantable cardioverter-defibrillator) in place; Current use of snf anticoagulation Allergies Active Allergy Reactions Severity Noted Date [...] as of this encounter (statuses as of 08/08/2019) Medications Medication Sig Dispensed Refills Start End [...] current diabetic). DM use of insulin II ([facility]), Type 2 Uncontrolled, diabetes mellitus Ins Dep E11.9 with other specified complication ([facility]) Lancets 30G Does not 1 Act by Does 150 Each 5 Active apply not apply 9 MiscIndications: route THREE Uncontrolled type 2 TIMES DAILY. diabetes mellitus Ell.9, insulin with hyperosmolarity dependent DM, without coma, with 28 G, long-term current Freestyle use of insulin ([facility]), Type 2 diabetes mellitus with other specified complication ([facility]) potassium chloride Take 1 Tab by 180 Tab 3 Active (K-TAB) 10 MEQ Oral mouth DAILY. 9 Tab CRIndications: Chronic systolic heart failure ([facility]) fluticasone Sterling 2 Sprays 1 Bottle 0 Active (FLONASE) [...] 9 Chronic systolic MOUTH EVERY heart failure ([facility]) DAY fluconazole Take 1 Tab by 1 Tab 0 Active (DIFLUCAN) 150 MG mouth DAILY. 9 Oral TabIndications: Cellulitis of right lower extremity CRESTOR 40 MG Oral Take 1 Tab by 90 Tab 3 Active TabIndications: mouth DAILY. 9 Coronary artery disease involving [place] coronary artery of [place] heart without angina pectoris BD PEN NEEDLE MATIAS USE 150 Each 5 Active U/F 32G X 4 MM Does DIRECTED 4 9 not apply TIMES DAILY MiscIndications: Uncontrolled type 2 diabetes mellitus with hyperosmolarity without coma, with long-term current use of insulin ([facility]) furosemide (LASIX) Take 40 mg by 0 Active 40 MG Oral Tab mouth TWICE DAILY. metoprolol succinate TAKE ONE 180 Tab 3 Active (TOPROL XL) 100 MG TABLET BY 9 Oral TABLET SR 24 MOUTH TWICE A HRIndications: DAY Chronic systolic heart failure (HCC) LANTUS SOLOSTAR 100 Inject 38-40 10 Each 11 Active UNIT/ML Subcutaneous Units beneath 9 Solution [...] pulmonary disease, unspecified COPD type (HCC) albuterol 3 mL by 125 Vial 1 Active (PROVENTIL, Inhalation-SVN 9 VENTOLIN) (2.5 route EVERY MG/3ML) 0.083% FOUR HOURS Inhalation Nebu NEEDED (severe SolnIndications: wheezing). Wheezing, Chronic obstructive pulmonary disease, unspecified COPD type (HCC) LANTUS SOLOSTAR 100 Inject 38-40 10 Device 11 Active UNIT/ML Subcutaneous Units beneath 9 Solution the skin Pen-injector DAILY. PRISCILA, please give her 2 boxes Omeprazole delayed Take 20 mg by 180 Cap 3 Active rel cap 20 MG Oral mouth TWICE 9 CAPSULE DELAYED DAILY. New RELEASEIndications: dose Gastroesophageal reflux disease without esophagitis acetaminophen-codein Take 1 Tab by 30 Tab 0 Active e (TYLENOL #3) mouth EVERY 9 300-30 MG Oral FOUR HOURS TabIndications: Pain NEEDED (severe in both hands, pain). Max Chronic pain Daily Amount: syndrome 6 Tabs. Chronic pain syndrome acetaminophen-codein Take 1 Tab by 30 Tab 0 08/08/20 Discontinued e (TYLENOL #3) mouth EVERY 9 19 (Reorder) 300-30 MG Oral FOUR HOURS TabIndications: Pain NEEDED (severe in both hands, pain). Max Chronic pain Daily Amount: syndrome 6 Tabs. Chronic pain syndrome Hospital, Clinic, or Other Ordered Dose Route Frequency Start Date End Date Status Facility Administered Medication albuterol (PROVENTIL, 2.5 mg IN-SVN NOW 06/26/2019 Active VENTOLIN) nebulizer solution (RT ADMIN) (5 MG/ML) 0.5%Indications: Wheezing documented as of this encounter (statuses as of 08/08/2019) Active Problems Problem Noted Date Chronic obstructive pulmonary disease 11/24/2018 Recurrent pulmonary emboli 11/24/2018 Moderate episode of recurrent major depressive disorder 11/24/2018 Uncontrolled type 2 diabetes mellitus with hyperosmolarity without coma, 01/27 with long-term current use of insulin Mitral valve insufficiency 01/06/2018 Current use of snf anticoagulation 01/06/2018 ICD (implantable cardioverter-defibrillator) in place 10/14/2017 Hx pulmonary embolism 12/08/2016 ANNE (obstructive sleep apnea) 08/20/2016 Overview: CPAP through [facility] Polyarthritis 05/04/2016 Type 2 diabetes mellitus with complication, with long-term current use of insulin Coronary artery disease 05/04/2016 H/O bee sting allergy 05/04/2016 Coronary artery disease involving [place] coronary artery of [place] heart 04/01 without angina pectoris Pacemaker 07/27/2011 Overview: Mfg. [employer] Model: V-193 ATLAS VR Date of Implant: OCTOBER 25, 2006 Chronic systolic heart failure 07/27/2011 Paroxysmal VT 07/27/2011 Other left bundle branch block 07/27/2011 CAD (coronary artery disease) 10/22/2006 Acute myocardial infarction, unspecified site, initial episode of care 2005 documented as of this encounter (statuses as of 08/08/2019) Immunizations Name Administration Dates Next Due Influenza [...] Sign Reading Time Taken Comments Blood Pressure 100/70 08/08/2019 10:02 AM EST Pulse 67 08/08/2019 10:02 AM EST Temperature - - Respiratory Rate - - Oxygen Saturation 95% 08/08/2019 10:02 AM EST Inhaled Oxygen Concentration - - Weight 106.6 kg (235 lb) 08/08/2019 10:02 AM EST Height 172.7 cm (5' 8") 08/08/2019 10:02 AM EST Body Mass Index 35.73 08/08/2019 10:02 AM EST documented in this encounter Patient Instructions Patient InstructionsGia Carson MD - 08/08/2019 10:20 AM DANIS ordered laboratory tests and will send you the results. Continue to work on diet Continue your insulinsElectronically signed by Gia Carson MD at 10:40 AM EST documented in this encounter Progress Notes Gia Carson MD - 08/08/2019 10:20 AM EST Nursing Notes: Maddie Segovia LPN 08/08/2019 10:28 AM Signed Chief Complaint Patient presents with Check Up Depression Screening Over the last 2 weeks, have you been feeling down, depressed, anxious, or hopeless?: 0 Over the past 2 weeks, have you felt little interest or pleasure in doing things ?: 0 Trouble falling or staying asleep, or sleeping too much?: 0 Feeling tired or having little energy?: 0 Poor appetite or overeating?: 0 Feeling bad about yourself or that you are a failure or have let yourself or your family down?: 0 Trouble concentrating on things, such as reading the newspaper or watching TV?: 0 Moving or speaking so slowly that other people notice OR being fidgety and restless?: 0 Thoughts that you would be better off or of hurting yourself in some way?: 0 PHQ-9 TOTAL SCORE: 0 Maddie Segovia LPN 08/08/2019 10:37 AM Signed Search Terms: Kinjal Alcantar, 1955 Search Date: 08/08/2019 10:37:23 AM Searching on behalf of: [id number] - Gia Carson The Drug Utilization Report below displays all of the controlled substance prescriptions, if any, that your patient has filled in the last twelve months. The information displayed on this report is compiled from pharmacy submissions to the Department, and accurately reflects the information as submitted by the pharmacies. This report was requested by: Maddie Segovia | Reference #: [id number] Gia Carson's Prescriptions Patient Name: Kinjal Alcantar Date: 1955 [facility] [address] [place] [address] Sex: Female Rx Written Rx Dispensed Drug Quantity Days Supply Prescriber Name Payment Method Dispenser 06/06/2019 06/10/2019 acetaminophen-cod #3 tablet 30 5 Gia Carson MD Medicare [facility] 04/11/2019 04/12/2019 acetaminophen-cod #3 tablet 30 5 Gia Carson MD Medicare [facility] 02/06/2019 02/07/2019 acetaminophen-cod #3 tablet 30 5 Gia Carson MD Medicare [facility] 11/09/2018 11/12/2018 acetaminophen-cod #3 tablet 30 5 Gia Carson MD Medicare [facility] 09/21/2018 09/21/2018 acetaminophen-cod #3 tablet 30 5 ChemaariaGia jiang MD Medicare [facility] * - Drugs marked with an asterisk are compound drugs. If the compound drug is made up of more than one controlled substance, then each controlled substance will be a separate row in the table. Product Lead: Hermann Valera MD Acid Painter: Dr Bucio SUBJECTIVE: Kinjal Alcantar is an 63-y.o. female who presents for evaluation and treatment of Type 2 diabetes mellitus, congestive heart failure, cellulitis (March) Family history: positive for diabetes in the patients Maternal Grandfather. Previous treatment modalities employed include diet, oral agents and insulin injections. Current treatment includes diet, oral agents and insulin injections. She takes Lantus 36-40 units (often takes less), and insulin lispro Mealtime insulin is 0 to 12 units Her daughter had a healthy baby boy last month. Current monitoring regimen: home blood tests - multiple times daily Home blood sugar records: some 300's-will take humalog 10 units when high She is switching insurance to [facility] in September. She gets leg cramps: molasses helps She has more pain with winter, needs her TC#3 refilled. Skin Itching is chronic from morning to 4 pm, resumes after she takes her evening medications. Thinks it is one of her medications. Her metoprolol generic was changed by the pharmacy. Last HgbA1c: Lab Results Component Value Date GLYCO 9.5 (H) 05/12/2019 GLYCO 9.5 (H) 11/16/2018 GLYCO 8.9 (H) 08/15/2018 Last eye exam: Not done, recommended Last microalbumin: 04/22/19 Last microfilament foot exam: 11/24/18 LDL: Lab Results Component Value Date CHOL 87 08/15/2018 TRIG 78 08/15/2018 HDL 22 (L) 08/15/2018 LDL 49 08/15/2018 LDLHDLRATIO 2.2 08/15/2018 CHOLHDLRATIO 4.0 08/15/2018 Immunizations: Immunization History Administered Date(s) Administered Influenza (IM) Preservative Free 07/26/2017, 07/13/2018, 06/16/2019 Influenza (IM) W/Pres 06/15/2016 Pneumococcal Conjugate Vaccine 07/21/2013 Pneumococcal Conjugate(13 Valent) 06/15/2016 Diabetic complications: cardiovascular disease Cardiovascular risk factors: diabetes mellitus and obesity Outpatient Medications as of 08/08/2019 Medication Sig Dispense Refill acetaminophen-codeine (TYLENOL #3) 300-30 MG Oral Tab Take 1 Tab by mouth EVERY FOUR HOURS NEEDED (severe pain). Max Daily Amount: 6 Tabs. Chronic pain syndrome 30 Tab 0 albuterol (PROVENTIL, VENTOLIN) (2.5 MG/3ML) 0.083% Inhalation Nebu Soln 3 mL by Inhalation-SVN route EVERY FOUR HOURS NEEDED (severe wheezing). 125 Vial 1 albuterol HFA (VENTOLIN HFA) 108 (90 Base) MCG/ACT Inhalation Aero Soln Take 2 Puffs by inhalation EVERY FOUR HOURS NEEDED (SOB- Bronchitis). 2 Inhaler 11 aspirin 81 MG Oral Tab EC Take [...] Tab by mouth DAILY. 90 Tab 3 dabigatran (PRADAXA) 150 MG [...] 0 fluticasone (FLONASE) 50 MCG/ACT Nasal Suspension Sterling 2 Sprays in nose DIRECTED. 2 sprays [...] SOLOSTAR 100 UNIT/ML Subcutaneous Solution Pen-injector Inject 38- 40 Units beneath theskin DAILY AT 1400. PRISCILA 10 Each 11 LANTUS SOLOSTAR 100 UNIT/ML Subcutaneous Solution Pen-injector Inject 38- 40 Units beneath theskin DAILY. PRISCILA, please give her 2 boxes 10 Device 11 magnesium oxide (MAG-OX) 400 MG Oral Tab Take 250 mg by mouth TWICE DAILY. metoprolol succinate (TOPROL XL) 100 MG Oral TABLET SR 24 HR TAKE ONE TABLET BY MOUTH TWICE ADAY 180 Tab 3 nitroglycerin (NITROSTAT) 0.4 MG Sublingual SL Tab Place 1 Tab under tongue EVERY FIVE MINUTES NEEDED (chest pain). 25 Tab 1 Omeprazole delayed rel cap 20 MG Oral CAPSULE DELAYED RELEASE Take 20 mg by mouth TWICE DAILY. New dose 180 Cap 3 potassium chloride (K-TAB) 10 MEQ Oral Tab CR Take 1 Tab by mouth DAILY. 180 Tab 3 Spironolactone 50 MG Oral Tab TAKE ONE TABLET BY MOUTH EVERY DAY 90 Tab 3 Allergies Allergen Reactions Altace [Fd&C Blue #2-Ramipril] [...] Coronary artery disease Coronary artery disease involving [place] coronary artery of [place] heart without angina pectoris 04/01/2016 Diabetes mellitus (HCC) saw Dr. Ryan in the past, but no longer takes Morning Sun. Essential (primary) hypertension Heart attack (HCC) 06/2006 x 2 in one week; airlifte to [place] Pacemaker Paroxysmal VT (HCC) 07/27/2011 Pulmonary hypertension (HCC) Sleep apnea 2014 Has cpap, Dr. Jimenez Past Surgical History: Procedure Laterality Date CATHETERIZATION HEART RIGHT AND LEFT Right 05/18/2017 Procedure: CATHETERIZATION HEART RIGHT AND LEFT; Surgeon: Francisco Murry MD ; Location: [facility] SECTION NOS x 2 COLONOSCOPY years ago, declines repeat INSERTION BI-VENTRICULAR ICD 08/10/2011 Procedure:INSERTION BI-VENTRICULAR ICD; Surgeon:ROB BLAIR; Location:[facility]; Laterality:N/A;UPGRADE TO BI-V ICD LT ID APPENDECTOMY ID INS NEW/RPLCMT PRM PACEMAKR W/TRANS ELTRD ATRIAL ID TOTAL ABDOM HYSTERECTOMY TONSILLECTOMY Family History Problem Relation Age of Onset Heart Mother Cancer Father with bone metastases, possible pancreatic Heart Sister RBBB Cancer Sister breast cancer Stroke Paternal Grandfather Heart Maternal Grandfather Heart Maternal Grandmother Diabetes Maternal Grandmother Social History Tobacco Use Smoking status: Former Smoker Packs/day: 0.50 Years: 22.00 Pack years: 11.00 Types: Cigarettes Last attempt to quit: 06/20/2006 Years since quittin.1 Smokeless tobacco: Never Used Substance Use Topics [...] depression Hematologic/Lymphatic/Immunologic: negative for unexpected weight loss Skin: Chronic pruritis x 6+ monthsl OBJECTIVE: BP 100/70 (BP Location: Right arm, Patient Position: Sitting) | Pulse 67 | Ht 5' 8" (1.727 m) | Wt 235 lb (106.6 kg) | SpO2 95% | ? No | BMI 35.73 kg/m General appearance: alert, no distress, oriented [...] Gait normal, strength grossly normal and symmetric. ASSESSMENT/PLAN: ICD-9-CM ICD-10-CM 1. Type 2 diabetes mellitus with complication, with long-term current use of insulin (HCC) 250.90 E11.8 GLYCOHEMOGLOBIN A1C V58.67 Z79.4 REFER TO OPTOMETRY GLYCOHEMOGLOBIN A1C 2. Pain in both hands 729.5 M79.641 acetaminophen-codeine (TYLENOL #3) 300-30 MG Oral Tab M79.642 3. Chronic pain syndrome 338.4 G89.4 acetaminophen-codeine (TYLENOL #3) 300-30 MG Oral Tab 4. Chronic systolic heart failure (HCC) 428.22 I50.22 COMPREHENSIVE METABOLIC PANEL COMPREHENSIVE METABOLIC PANEL 5. ICD (implantable cardioverter-defibrillator) in place V45.02 Z95.810 6. Current use of snf anticoagulation V58.61 Z79.01 Rx: ALEX? allergy Statin? intolerant Metformin? intolerant Reviewed concepts of diabetes self-management stressing the primary role of the patient in monitoring and maintaining control of Diabetes. Recommended diet, exercise, and weight loss. Follow up every 2-3 months is recommended, sooner as needed. Patient Instructions I ordered laboratory tests and will send you the results. Continue to work on diet Continue your insulins Author: Gia Carson MD 08/08/2019 12:12 documented in this encounter Plan of Treatment Date Type Specialty Care Team Description 09/06/2019 Office Visit Cardiology Hermann Valera MD [facility] [place] [address] 09/21/2019 Office Visit Pulmonary Colin Bucio MD [address] [place] [address] 11/14/2019 Office Visit Family Practice Gia Carson MD [address] [place] [address] 11/30/2019 [facility] Name Type Priority Associated Diagnoses Date/Time GLYCOHEMOGLOBIN A1C Lab Routine Type 2 diabetes 08/08/2019 10:55 AM mellitus with EST complication, with long-term current use of insulin (HCC) COMPREHENSIVE METABOLIC Lab Routine Chronic systolic heart 08/08/2019 10: 55 AM PANEL failure (HCC) EST Name Type Priority Associated Diagnoses Order Schedule GLYCOHEMOGLOBIN A1C Lab Routine Type 2 diabetes Expected: 08/08/2019 mellitus with (Approximate), complication, with Expires: 08/08/2020 long-term current use of insulin (HCC) COMPREHENSIVE METABOLIC Lab Routine Chronic systolic heart Expected: 2018 PANEL failure (HCC) (Approximate), Expires: 08/08/2020 Name Type Priority Associated Diagnoses Order Schedule REFER TO OPTOMETRY Referral Routine Type 2 diabetes mellitus Expected: , with complication, with Expires: 08/08/2020 long-term current use of insulin (HCC) Health Maintenance Due Date Last Done Comments ZOSTER IMMUNIZATION SERIES 2004 (1 of 2) Diabetic Eye Exam 06/07/2018 06/07/2017 HEMOGLOBIN A1C 08/12/2019 05/12/2019, 02/07/2019, 11/16/2018, Additional history exists FOOT EXAM 11/25/2019 11/24/2018, 11/24/2018, 11/24/2018, Additional history exists LIPID DISORDER SCREENING 05/03/2020 05/03/2019, 03/22/2019, 08/15/2018, Additional history exists URINE MICROALBUMIN 05/12/2020 05/12/2019, 09/21/2018, 09/06/2017, Additional history exists DEPRESSION SCREENING 08/08/2020 08/08/2019, 08/08/2019 INFLUENZA VACCINE Completed 06/16/2019, 07/13/2018, 07/26/2017, Additional history exists HPV IMMUNIZATION SERIES Aged Out No longer eligible based on patient's age to complete this topic MENINGOCOCCAL VACCINE IMM Aged Out No longer eligible based on patient's age to complete this topic documented as of this encounter Goals Goal Patient Goal Associated Recent Patient-Stated? Author Type Problems Progress Weight CHF 15 No [place], increase vs. (08/08/2019 Gia Leija, 18 mo min 10:02 AM EST) (lbs) < 5 Note: This is an [...] number on the left). Depression screen Depression 0 (08/08/2019 10:02 AM Gia Pruitt (PHQ-9) total score < [...] and any After Visit Summaries. Consume a ji-isgyc-hyrw diet Lifestyle No Gia Carson MD Note: [...] of this encounter Implants Implanted Type Area Fabric Awning Repairer Device Shelf Model / Identifier Expiration Serial / Date Lot Unify [id number] - [id number] Left: [employer], 11/17/2012 [id number] / Implanted: Qty: 1 on 08/10/2011 at [facility] [employer] [id number] / Lead Tendril # [id number] - [id number] Left: [employer] 03/19/2014 [id number] / Implanted: Qty: 1 on 08/10/2011 at [facility]/ PACESETTE [id number] / R 1158t Quickflex Lead - [id number] Left: [facility], 02/17/2014 [id number] / Implanted: Qty: 1 on 08/10/2011 at [facility] [employer] [id number] / Quadra Assura Mp [id number] Warp Tying Machine Knotter-D - [id number] N/A: Chest [employer] , 04/19/2019 [id number] / Implanted: Qty: 1 on 06/28/2017 by Rob Blair MD at [facility] INC. [id number] / Optisense Lead - [id number] N/A: Chest [employer], [id number] / Implanted: Qty: 1 on 06/28/2017 by Rob Blair MD at [facility] [employer] [id number] / Lda 210q/65 Optisure - [id number] N/A: Chest [employer], 2017 [id number] / Implanted: Qty: 1 on 06/28/2017 by Rob Blair MD at [facility] [id number] / Quartet 1458q-86cm - [id number] N/A: Chest [employer], 11/18/2019 [id number] / Implanted: Qty: 1 on 06/28/2017 by Rob Blair MD at [facility] [id number] / documented as of this encounter Results Not on filedocumented in this encounter Visit Diagnoses Diagnosis Type 2 diabetes mellitus with complication, with long-term current use of insulin (HCC) - Primary Pain in both hands Chronic pain syndrome Chronic systolic heart failure (HCC) Chronic systolic heart failure ICD (implantable cardioverter-defibrillator) in place Current use of intermediate accountant anticoagulation Encounter for long-term (current) use of anticoagulants documented in this encounter Insurance Payer Benefit Plan / Subscriber ID Effective Dates Phone Address Type Group FIDELIS MEDICARE FIDELIS CARE xxxxxxxxxxx 2016-Present [employer] [place] Guarantor Name Account Type Relation to Date of Phone Billing Patient Address Kinjal Alcantar Personal/Family 1955 [id number] ([address]) [address] [place], [place] ([place]) [address] documented as of this encounter Advance Directives Type Date Recorded Patient Fashion Styling Intern Explanation Advance Directives 12/16/2018 9:01 AM Health Care Proxy VANNESSA-WILLIAM 12/16/2018 9:01 AM WILLIAM REDDY Dept of Health
[2019-09-01 11:30] LABS: Urine Appearance Clear; Urine Bilirubin Negative (Negative); Urine Blood 1+ (Negative); Urine Color Straw; Urine Glucose Negative (Negative); Urine Ketones Negative (Negative); Urine Nitrite Negative (Negative); Urine Protein 1+(30 mg/dL) (Negative); Urine Specific Gravity 1.004 (1.010-1.030); Urine Urobilinogen Negative (Negative)
[2019-09-01 11:32] LABS: Urine Bacteria 1+ (Absent); Urine Red Blood Cell Trace(0-2/hpf) (Absent); Urine Squamous Epithelial Cell Present (Absent); Urine White Blood Cell Trace(0-5/hpf) (Absent)
--- NOTE | 2019-09-01 11:44 | ED ---
Shortness of Breath - HPI Summary HPI Summary: Patient is a 63 y/o F presenting to the ED for a chief complaint of shortness of breath. Patient states that she has shortness of breath at rest, bilateral LE edema, urinary retention, and intermittent chest pain described as a stabbing sensation. She also notes a 3 pound weight gain that she attributes to taking diuretics. She denies fever. She denies any aggravating or alleviating factors. PMHx is significant for congestive heart failure. - History of Current Complaint Chief Complaint: EDRespiratoryDistress Time Seen by Provider: 09/01/19 10:57 Hx Obtained From: Patient Onset/Duration: Sudden Onset, Still Present Timing: Constant Current Severity: Moderate Dyspnea At: Rest Aggravating Factors: Nothing Alleviating Factors: Nothing Associated Signs & Symptoms: Chest Pain Unrelated to Cough, Edema - Bilateral LE - Allergy/Home Medications Allergies/Adverse Reactions: Allergies Allergy/AdvReac Type Severity Reaction Status Date / Time bee pollen Allergy Anaphylatic Verified 09/01/19 10:40 Shock bee venom protein (honey bee) Allergy Anaphylatic Verified 09/01/19 10:40 Shock cephalexin [From Keflex] Allergy Anaphylatic Verified 09/01/19 10:40 Shock Cephalosporins Allergy Anaphylatic Verified 09/01/19 10:40 Shock cobicistat [From Genvoya] Allergy Hives Verified 09/01/19 10:40 diphtheria toxoid,adsorbed Allergy Swelling Verified 09/01/19 10:40 diphtheria toxoid,fluid Allergy Swelling Verified 09/01/19 10:40 diphtheria,pertussis Allergy Swelling Verified 09/01/19 10:40 (acellular),te diphtheria,tetanus,Haem. B Allergy Swelling Verified 09/01/19 10:40 conjugat diphtheria,tetanus,poliomyelitis Allergy Swelling Verified 09/01/19 10:40 va elvitegravir [From Genvoya] Allergy Hives Verified 09/01/19 10:40 emtricitabine [From Genvoya] Allergy Hives Verified 09/01/19 10:40 glyburide Allergy Itching Verified 09/01/19 10:40 inositol niacinate Allergy Unknown Verified 09/01/19 10:40 [From Niacin No Flush] Reaction Details insulin glargine Allergy Hives Verified 09/01/19 10:40 [From Basaglar KwikPen U-100 Insulin] Iodine and Iodide Containing Allergy Hives Verified 09/01/19 10:40 Produc latex Allergy Unknown Verified 09/01/19 10:40 Reaction Details liraglutide [From Victoza] Allergy Hives Verified 09/01/19 10:40 losartan Allergy Unknown Verified 09/01/19 10:40 Reaction Details meclizine [From Antivert] Allergy See Comment Verified 09/01/19 10:40 meperidine Allergy See Comment Verified 09/01/19 10:40 metformin Allergy See Comment Verified 09/01/19 10:40 niacin Allergy Unknown Verified 09/01/19 10:40 Reaction Details NSAIDS (Non-Steroidal Allergy See Comment Verified 09/01/19 10:40 Anti-Inflamma ondansetron Allergy Itching Verified 09/01/19 10:40 Penicillins Allergy Hives/Diff. Verified 09/01/19 10:40 Breathing/I tching propoxyphene Allergy See Comment Verified 09/01/19 10:40 ramipril Allergy Unknown Verified 09/01/19 10:40 Reaction Details sitagliptin Allergy Rash Verified 09/01/19 10:40 tenofovir [From Genvoya] Allergy Hives Verified 09/01/19 10:40 Tetracyclines Allergy Hives Verified 09/01/19 10:40 atorvastatin AdvReac Muscle Ache Verified 09/01/19 10:40 Home Medications: Home Medications Acetaminophen TAB* [Tylenol TAB*] 325 mg PO BEDTIME PRN 09/01/19 [History Confirmed 09/01/19] Furosemide TAB* [Lasix TAB*] 60 mg PO QAM 09/01/19 [History Confirmed 09/01/19] Omeprazole CAP (NF) [Prilosec CAP* 20 MG] 20 mg PO BID 09/01/19 [History Confirmed 09/01/19] PMH/Surg Hx/FS Hx/Imm Hx Previously Healthy: Yes Endocrine/Hematology History: Reports: Hx Anticoagulant Therapy, Hx Diabetes, Hx Anemia Denies: Hx Blood Disorders, Hx Blood Transfusions, Hx Bone Marrow Disease, Hx Systemic Lupus Erythematosus, Hx Sickle Cell Disease, Hx Thyroid Disease, Hx Unexplained Bleeding, Other Endocrine/Hematological Disorders Cardiovascular History: Reports: Hx Angina, Hx Angioplasty, Hx Auto Implanted Cardiovert Defib, Hx Cardiac Arrest, Hx Cardiomegaly, Hx Congestive Heart Failure, Hx Coronary Artery Disease - STENT, Hx Deep Vein Thrombosis, Hx Hypercholesterolemia, Hx Hypotension, Hx Hypertension, Hx Myocardial Infarction , Hx Pacemaker/ICD, Hx Syncope, Hx Valvular Heart Disease, Other Cardiovascular Problems/Disorders - CAD with LVEF less than 20% Denies: Hx Aneurysm, Hx Embolism, Hx Peripheral Vascular Disease, Hx Rheumatic Fever Respiratory History: Reports: Hx Chronic Obstructive Pulmonary Disease (COPD), Hx Pulmonary Edema, Hx Pulmonary Embolism, Hx Sleep Apnea - CPAP, Other Respiratory Problems/Disorders - chronic shortness of breath Denies: Hx Asthma, Hx Bronchopulmonary Dysplasia, Hx Chronic Bronchitis, Hx Cystic Fibrosis, Hx Lung Cancer, Hx Pleural Effusion, Hx Pneumonia, Hx Seasonal Allergies GI History: Reports: Hx Gastroesophageal Reflux Disease, Other GI Disorders - periods of chronic diarrhea Denies: Hx Cirrhosis, Hx Crohn's Disease, Hx Diverticulosis, Hx Gall Bladder Disease, Hx Gastrointestinal Bleed, Hx Hiatal Hernia, Hx Irritable Bowel, Hx Jaundice, Hx Obstructive Bowel, Hx Ileostomy, Hx Pyloric Stenosis, Hx Ulcer History: Reports: Hx Kidney Infection Denies: Hx Acute Renal Failure, Hx Benign Prostatic Hyperplasia, Hx Chronic Renal Failure, Hx Dialysis, Hx Kidney Stones, Hx Renal Disease, Other Problems/Disorders Musculoskeletal History: Reports: Hx Arthritis - HANDS, RT ANKLE, SHOULDERS Denies: Hx Back Problems, Hx Bursitis, Hx Congenital Bone Abnormalities, Hx Fibromyalgia, Hx Gout, Hx Orthopedic Injury, Hx Osteoporosis, Hx Scoliosis, Hx Tendonitis, Other Musculoskeletal History Sensory History: Reports: Hx Contacts or Glasses Denies: Hx Cataracts, Hx Eye Injury, Hx Eye Prosthesis, Hx Glaucoma, Hx Legally Blind, Hx Macular Degeneration, Hx Vision Problem, Hx Deafness, Hx Hearing Aid, Hx Hearing Problem, Other Sensory Impairments Opthamlomology History: Reports: Hx Contacts or Glasses Denies: Hx Cataracts, Hx Eye Injury, Hx Eye Prosthesis, Hx Glaucoma, Hx Legally Blind, Hx Macular Degeneration, Hx Vision Problem, Other Sensory Impairments EENT History: Denies: Hx Deafness Neurological History: Reports: Hx Headaches, Hx Migraine Denies: Hx Dementia, Hx Developmental Delay, Hx Nerve Disease, Hx Seizures, Hx Spinal Cord Injury, Hx Transient Ischemic Attacks (TIA), Other Neuro Impairments/Disorders Psychiatric History: Reports: Hx Depression - NO MEDS Denies: Hx Anxiety, Hx Attention Deficit Hyperactivity Disorder, Hx Autism, Hx Eating Disorder, Hx Oppositional Teller Disorder, Hx Panic Disorder, Hx Post Traumatic Stress Disorder, Hx Inpatient Treatment, Hx Community Mental Health Tx, Hx Schizophrenia, Hx Bipolar Disorder, Hx Suicide Attempt, Hx of Violent Episodes Against Others, Other Psychiatric Issues/Disorders - Cancer History Hx Hematologic Symptoms: No Hx Chemotherapy: No Hx Radiation Therapy: No Hx Palliative Cancer Treatment: No - Surgical History Surgical History: Yes Surgery Procedure, Year, and Place: 2012 removal of screw in left thumb and trigger release. 2010 PACEMAKER/DEFIB REPLACED [place]. 2005 CARDIAC STENT [place]. 2006 PACEMAKER/DEFIB [place]. 1998 [place]OMY [place]. 1983 & 1985 C [place]. 1976 [place]. 1973 [place]OMY [place] Hx Anesthesia Reactions: No - STATES SHE GOES INTO CHF EASILY - Immunization History Date of Tetanus Vaccine: 06/2012 Date of Influenza Vaccine: Fall 2013 Infectious Disease History: No Infectious Disease History: Denies: Hx Clostridium Difficile, Hx Hepatitis, Hx Human Immunodeficiency Virus (HIV), Hx of Known/Suspected MRSA, Hx Shingles, Hx Tuberculosis, Hx Known/ Suspected VRE, Hx Known/Suspected VRSA, History Other Infectious Disease, Traveled Outside the in Last 30 Days - Family History Known Family History: Positive: Other - CANCER, ETOH ABUSE - Social History Occupation: Disabled Alcohol Use: Rare Hx Substance Use: No Substance Use Type: Reports: None Hx Tobacco Use: Yes Smoking Status (MU): Former Smoker Type: Cigarettes Amount Used/How Often: 1 PPD, 3 cigarettes/day by the end Length of Time of Smoking/Using Tobacco: PT states during the time she smoked she stopped off and on . Have You Smoked in the Last Year: No Review of Systems Positive: Other - Positive 3 pound weight gain. Negative: Fever Positive: Chest Pain - Intermittent Positive: Shortness Of Breath Positive: other - Positive urinary retention Positive: Edema - Bilateral LE All Other Systems Reviewed And Are Negative: Yes Physical Exam - Summary Physical Exam Summary: VITAL SIGNS: Reviewed. GENERAL: Patient is a well-developed and nourished FEMALE who is lying comfortable in the stretcher. Patient is not in any acute respiratory distress. HEAD AND FACE: No signs of trauma. No ecchymosis, hematomas or skull depressions. No sinus tenderness. EYES: PERRLA, EOMI x 2, No injected conjunctiva, no nystagmus. EARS: Hearing grossly intact. Ear canals and tympanic membranes are within normal limits. MOUTH: Oropharynx within normal limits. NECK: Supple, trachea is midline, no adenopathy, no JVD, no carotid bruit, no c- spine tenderness, neck with full ROM. CHEST: Symmetric, no tenderness at palpation. LUNGS: Clear to auscultation bilaterally. No wheezing. Crackles in both bases of the lungs. CVS: Regular rate and rhythm, S1 and S2 present, no murmurs or gallops appreciated. ABDOMEN: Soft, non-tender. No signs of distention. No rebound, no guarding, and no masses palpated. Bowel sounds are normal. EXTREMITIES: FROM in all major joints, no cyanosis or clubbing. 2+ pitting edema in the bilateral LE. NEURO: Alert and oriented x 3. No acute neurological deficits. Speech is normal and follows commands. SKIN: Dry and warm. Triage Information Reviewed: Yes Vital Signs On Initial Exam: Initial Vitals Temp Pulse Resp BP Pulse Ox 97.6 F 67 22 131/79 98 09/01/19 10:34 09/01/19 10:34 09/01/19 10:34 09/01/19 10:34 09/01/19 10:34 Vital Signs Reviewed: Yes Procedures - Sedation Patient Received Moderate/Deep Sedation with Procedure: No Diagnostics - Vital Signs Vital Signs Temp Pulse Resp BP Pulse Ox 09/01/19 11:21 86 23 104/72 98 09/01/19 11:16 60 15 99 09/01/19 10:34 97.6 F 67 22 131/79 98 - Laboratory Lab Results: Lab Results 09/01/19 Range/Units 11:03 Urine Color Straw Urine Appearance Clear Urine pH 7.0 (5-9) Ur Specific Clarinda 1.004 L (1.010-1.030) Urine Protein 1+(30 mg/dl) A (Negative) Urine Ketones Negative (Negative) Urine Blood 1+ A (Negative) Urine Nitrate Negative (Negative) Urine Bilirubin Negative (Negative) Urine Urobilinogen Negative (Negative) Ur Leukocyte Esterase Negative (Negative) Urine WBC (Auto) Trace(0-5/hpf) (Absent) Urine RBC (Auto) Trace(0-2/hpf) (Absent) Ur Squamous Epith Cells Present A (Absent) Urine Bacteria 1+ A (Absent) Urine Glucose Negative (Negative) Result Diagrams: 09/01/19 11:32 09/01/19 11:32 Lab Statement: Any lab studies that have been ordered have been reviewed, and results considered in the medical decision making process. - Radiology Chest X-ray Radiology Interpretation Completed By: Radiologist Summary of Radiographic Findings: Chest X-ray IMPRESSION: #. Probable mild interstitial edema without significant interval change. Reviewed by Dr. Gilbert. - EKG 11:08 Cardiac Rate: Other Rate - 63 BPM EKG Rhythm: Sinus Rhythm ST Segment: Normal Ectopy: None EKG Comparison: No Significant Change - From 06/21/19 Summary of EKG Findings: EKG at 11:08 shows 63 BPM with atrial paced rhythm, no STEMI, unchanged from previous EKG on 06/21/19. Reviewed and interpreted by Dr. Gilbert. Course/Dx - Course Assessment/Plan: Patient is a 63 y/o F presenting to the ED for a chief complaint of shortness of breath. Patient states that she has shortness of breath at rest, bilateral LE edema, urinary retention, and intermittent chest pain described as a stabbing sensation. She also notes a 3 pound weight gain that she attributes to taking diuretics. She denies fever. She denies any aggravating or alleviating factors. PMHx is significant for congestive heart failure. Blood work without any significant abnormality except for sodium 134, anion gap is 12, BUN is 27, creatinine 1.7, glucose 116, troponin 0.03, CRP is 29.5, and BMP more than 1300, urinalysis is negative for UTI. Chest x-ray impression: Probably mild interstitial edema without significant change. In the ED course the patient was given Lasix. I discuss my physical exam and test results with Dr. Shine from the hospitalist services and she agrees to admit the patient to her services. The patient is hemodynamically stable alert and oriented x 3. - Diagnoses Provider Diagnoses: CHF exacerbation, Renal failure, Elevated troponin - Physician Notifications Discussed Care of Patient With: Heena Shine - At 12:48, Dr. Heena Shine agrees to admit the patient to [facility] [place] with a diagnosis of CHF exacerbation. Time Discussed With Above Provider: 12:48 Instructed by Provider To: Admit As Inpatient Discharge ED - Sign-Out/Discharge Documenting (check all that apply): Patient Departure - Admit - Discharge Plan Condition: Stable Disposition: ADMITTED TO [facility] - Billing Disposition and Condition Condition: STABLE Disposition: Admitted to [facility] - Attestation Statements Document Initiated by Scribe: Yes Documenting Scribe: Kinjal Borjas Provider For Whom Scribe is Documenting (Include Credential): Filemon Gilbert MD Scribe Attestation: I, Kinjal Borjas, scribed for Filemon Gilbert MD on 09/01/19 at 2134. Scribe Documentation Reviewed: Yes Provider Attestation: The documentation as recorded by the [email or web address] accurately reflects the service I personally performed and the decisions made by me, Filemon Gilbert MD Status of Scribe Document: Viewed
[2019-09-01 11:45] LABS: ABS Basophils 0.1 10^3/ul (0-0.2); ABS Eosinophils 0.1 10^3/ul (0-0.6); ABS Lymphocytes 1.3 10^3/ul (1.0-4.8); ABS Monocytes 0.5 10^3/ul (0-0.8); Eosinophil % 1.5 %; Hematocrit 43 % (35-47); Hemoglobin 13.7 g/dL (12.0-16.0); Lymphocyte % 16.7 %; Mean Corpuscular HGB Conc 32 g/dL (31-36); Mean Corpuscular Hemoglobin 25 pg (27-31); Mean Corpuscular Volume 78 fL (80-97); Nucleated Red Blood Cells % 0.1; Platelet Count 202 10^3/uL (150-450); Red Blood Count 5.53 10^6 /uL (3.70-4.87); Red Cell Distribution Width 21 % (10-15); White Blood Count 8.1 10^3/uL (3.5-10.8)
[2019-09-01 11:53] LABS: Activated Partial Thrombo Time 58.8 seconds (26.0-38.0); INR 2.1 (0.82-1.09)
[2019-09-01 12:20] LABS: Troponin I 0.03 ng/mL (<0.03)
[2019-09-01 12:31] LABS: ALT 16 U/L (7-52); AST 23 U/L (13-39); Albumin 3.4 g/dL (3.2-5.2); Albumin/Globulin Ratio 0.9 (1-3); Alkaline Phosphatase 213 U/L (34-104); Anion Gap 12 mmol/L (2-11); BUN/Creatinine Ratio 15.8 (8-20); Blood Urea Nitrogen 27 mg/dL (6-24); C Reactive Protein 29.55 mg/L (<8.01); CO2 Carbon Dioxide 27 mmol/L (22-32); Calcium 8.9 mg/dL (8.6-10.3); Chloride 95 mmol/L (101-111); Creatine Kinase 86 U/L (10-223); EGFR African American 36.4 (>60); EGFR Non-African American 30.1 (>60); Globulin 3.9 g/dL (2-4); Glucose 116 mg/dL (70-100); Potassium 3.7 mmol/L (3.5-5.0); Sodium 134 mmol/L (135-145); Total Protein 7.3 g/dL (6.4-8.9)
[2019-09-01] MEDS ORDERED: Nitroglycerin TAB 0.4 MG* 0.4 MG TAB SL PRN ×2 (14:20→14:52)
[2019-09-01] MEDS ORDERED: Saline NASAL SPRAY 0.65%* BTL BOTH NARES PRN (14:23)
[2019-09-01] MEDS ORDERED: Dextrose 50% VIAL 50 ml IV PUSH PRN (14:23)
[2019-09-01] MEDS ORDERED: Furosemide IV* 10 MG/ML VIAL (40 MG) IV ONE (14:29)
[2019-09-01 15:14] LABS: Troponin I 0.03 ng/mL (<0.03)
[2019-09-01 15:15] LABS: Magnesium 2.4 mg/dL (1.9-2.7)
--- NOTE | 2019-09-01 16:17 | HP ---
CC: Gia Carson MD * HISTORY AND PHYSICAL: DATE OF ADMISSION: 09/01/19 PRIMARY CARE PROVIDER: Gia Carson MD ATTENDING PHYSICIAN: Heena Mulligan MD * (dictated by AP Castro ). CHIEF COMPLAINT: 1. Chest pain. 2. Shortness of breath. HISTORY OF PRESENT ILLNESS: Ms. Alcantar is a 63-year-old female with a past medical history of heart failure, reduced ejection fraction of less than 20%; atrial fibrillation, on anticoagulation; diabetes mellitus, insulin dependent; CKD; CAD; who presented to the ER today with complaints of chest pain and shortness of breath. The patient states that she has baseline shortness of breath but that it has worsened in the last approximately 2 days. She has associated lower extremity edema, dyspnea on exertion, paroxysmal nocturnal dyspnea, and states she cannot even lay flat anymore. She typically takes Lasix 40 daily and has not missed any medication. In fact she has increased her medication to 60 in the morning and 40 at bedtime for the last 2 days. She reports no increase in urinary output. She does complain of some dysuria, urgency, and retention without increase in output. She reports 3-pound weight gain overnight which prompted her to seek workup in the ER. The patient also complains of congestion, chills, sweats, and a rare cough. She states that she is occasionally dizzy with standing. She has been constipated as of late but had a bowel movement today. She complains of some mild right flank pain which only hurts with walking for the last 2 days. The patient also reports chest pain in the left chest. She describes the pain as stabbing. She states that this occurs intermittently. The last time she had this was approximately 2 months ago and the pain was relieved with nitro. She states that the pain returned today. It is intermittent and is not associated with activity or eating. She states that her pain does not radiate. She has no associated diaphoresis or shortness of breath except the progressive shortness of breath she has experienced over the last 2 days. In the ER, the patient received a full workup. CBC is relatively unremarkable. The patient's creatinine is within baseline. She had a mildly elevated bilirubin and alk phos. Troponin is 0.03. CRP is 29.55. BNP is greater than 1300. EKG was obtained and reveals normal sinus rhythm, ventricularly paced, at a rate of [address] changes. Chest x-ray reveals probable interstitial edema. The hospitalist team was asked to further evaluate the patient for admission. PAST MEDICAL HISTORY: 1. Coronary artery disease with 3 MIs, 1 stent. 2. Heart failure, reduced ejection fraction less than 20%, status post PPM/ AICD. 3. Atrial fibrillation, on anticoagulation. 4. Diabetes mellitus, insulin dependent. 5. Chronic DVT/PE, on anticoagulation. 6. GERD. 7. CKD. PAST SURGICAL HISTORY: 1. Cardiac stent. 2. ICD/PPM. 3. x2. 4. Hysterectomy. 5. Tonsillectomy. HOME MEDICATIONS: 1. Acetaminophen 325 mg p.o. at bedtime p.r.n. 2. Aspirin 81 mg p.o. daily. 3. Dabigatran 150 mg p.o. b.i.d. 4. Docusate 100 mg p.o. at bedtime p.r.n. 5. Furosemide 40 mg daily which has been increased to 60 mg a.m., 40 mg p.m. for the last 2 days. 6. Insulin glargine 40 units subcu at bedtime. 7. Insulin lispro 8 to 12 units subcu t.i.d. a.c. 8. Magnesium oxide 400 mg p.o. daily. 9. Metoprolol succinate 100 mg p.o. b.i.d. 10. Nitroglycerin 0.4 mg sublingual q.5 minutes p.r.n. 11. Omeprazole 20 mg p.o. b.i.d. 12. Rosuvastatin 40 mg p.o. at bedtime. 13. Spironolactone 50 mg p.o. daily. DRUG ALLERGIES: BEE POLLEN; CEPHALOSPORINS, anaphylaxis; COBICISTAT, hives; DIPHTHERIA, PERTUSSIS, TETANUS, POLIO VACCINE, swelling; ELVITEGRAVIR, hives; EMTRICITABINE, hives; GLYBURIDE, itching; NIACIN; BASAGLAR KWIKPEN; INSULIN GLARGINE, hives; IODINE, hives; LATEX; LIRAGLUTIDE, hives; LOSARTAN; MECLIZINE; MEPERIDINE; METFORMIN; NSAIDS; ONDANSETRON; PENICILLIN; PROPOXYPHENE; RAMIPRIL; SITAGLIPTIN; TENOFOVIR; TETRACYCLINES; ATORVASTATIN. FAMILY HISTORY: Father at the age of 43 from cancer. The patient believes that it was pancreatic cancer. Mother in her 50s from alcohol related effects. Paternal grandfather had history of CVA. Maternal grandmother had history of diabetes mellitus. SOCIAL HISTORY: The patient denies current use of tobacco, she quit in 2005; prior to that, she smoked for approximately 20 years about one-half pack per day. She rarely uses alcohol, last use was 2 months ago. She does not use any drugs besides her prescription home medications. She is . She has 2 girls. She lives alone. 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 In the event that she is unable to make her own medical decisions, she has appointed her daughter, Kyung Johnson, to be her surrogate decision maker. REVIEW OF SYSTEMS: A 14-point review of systems has been performed and all the pertinent positives and negatives are in the HPI. All other systems are negative. PHYSICAL EXAMINATION GENERAL: Ms. Alcantar is a well-developed, well-nourished, obese, middle aged white woman who appears somewhat older than her stated age. She appears mildly acutely ill and sounds congested. She appears to be in no acute distress and is breathing comfortably on room air. HEENT: PERRL. EOMI. Visual aguilar grossly intact. Nonicteric sclerae. Hearing is grossly intact. Nasal mucosa is mildly erythematous with a small amount of clear drainage. There is a septal perforation noted. Oral mucous membranes are moist. There are no lesions. Her pharynx is clear. The tongue is at midline. Palate elevates symmetrically. PULMONARY: Symmetrical chest expansion without use of the accessory muscles. Breath sounds are decreased throughout. No rales, wheezes, or rhonchi. CARDIOVASCULAR: Distant heart sounds with harsh holosystolic murmur. S1, S2 without rubs, clicks, or gallops. There is no apparent JVD. There is 1+ bilateral lower extremity pretibial edema. ABDOMEN: Obese. Bowel sounds in all quadrants. Soft, nontender to palpation. NEURO: The patient is awake. She is alert and oriented x3. Cranial nerves II through XII are grossly intact. She is able to move all her extremities. SKIN: Multiple excoriations on the abdomen and back with some mild dry flaking skin in these areas. ASSESSMENT AND PLAN: Ms. Alcantar is a 63-year-old female with a past medical history of heart failure with reduced ejection fraction, less than 20%; atrial fibrillation, on anticoagulation; diabetes mellitus, on insulin; coronary artery disease; who presented to the ER today with complaints of shortness of breath and chest pain. The patient will be admitted for: 1. Shortness of breath. The patient is admitted with shortness of breath, weight gain, bilateral lower extremity edema. I suspect that this is due to heart failure exacerbation. I do not suspect pulmonary embolism as the patient is not tachycardiac and is on anticoagulation, which she takes regularly. She also admits to an increase in weight. She has increased her Lasix dosage over the last 2 days x1.5 the original dose. At this time, she will be started on IV Lasix. She will be given a dose of 40 IV Lasix now and we will monitor intake and output as well as daily weights. The patient will be placed on telemetry. She will be started on a heart-healthy diet. 2. Chest pain. The patient complains of stabbing chest pain that is intermittent on the left side of the chest without radiation and initial troponin was 0.03. We will continue to trend troponins. An EKG was obtained and reveals ventricularly paced rhythm with a rate of [address] changes. A morning EKG has been ordered. The patient may continue her home nitro as needed with instructions to call provider for greater than 2 uses. 3. Congestion. I suspect that the patient has an upper respiratory illness at this time, likely viral. This may have exacerbated her heart failure. She does have a mildly elevated CRP of 29.55. Upon examination, there is an apparent septal perforation in the nasal cavity. She should follow up outpatient with ENT regarding future management of this. 4. Dysuria with urgency and retention. The patient complains of dysuria, urgency, and retention in the setting of elevated CRP. She does have decreased urinary output despite being on Lasix. Urinalysis has been performed and is negative for leukocyte esterase and nitrites, with 1+ bacteria. I do not believe that she has a urinary tract infection, although we will await culture results. 4. Diabetes mellitus. Continue the patient's home glargine with a decreased dose from 40 to 30 at bedtime. Continue lispro sliding scale a.c., fingersticks a.c. 5. Atrial fibrillation. Continue metoprolol and dabigatran. 6. Coronary artery disease. Continue aspirin, metoprolol, and nitro p.r.n. 7. Hyperlipidemia. Continue rosuvastatin. 8. Gastroesophageal reflux disease. Continue omeprazole. 9. Chronic kidney disease. Continue to monitor. Renal function at baseline at this time. 10. DVT prophylaxis. According to DVT Risk Assessment, the patient scores 3, placing her at high risk. She will continue her home dabigatran. 11. Code status. Full code. TIME SPENT: Approximately 60 minutes was spent on this admission, greater than half of that time was spent [id number] with the patient obtaining history, performing physical, and reviewing the plan of care. The case has been reviewed with my attending, Dr. Mulligan, who is in agreement with the plan of care. AP CASTRO [id number]/CPS #: [id number] PATSY
[2019-09-01 17:47] LABS: Troponin I 0.03 ng/mL (<0.03)
[2019-09-01] MEDS: Insulin LISPRO* 1 UNITS UNIT SUBCUT SCH (17:50)
[2019-09-01] MEDS: CMCS:Rosuvastatin (NF) 20 MG TAB PO SCH (18:01)
[2019-09-01] MEDS: Metoprolol Succinate XL TAB* 100 MG PO SCH (20:15)
[2019-09-01] MEDS: Pantoprazole TAB * 40 MG TAB PO SCH (20:22)
[2019-09-01] MEDS: CMC: Dabigatran CAP(NF) 150 MG CAP PO SCH (20:22)
[2019-09-01] MEDS: Insulin GLARGINE(*) 1 UNITS UNIT SUBCUT SCH (20:22)
[2019-09-01] MEDS: Acetaminophen TAB* 325 MG PO PRN (20:33)
[2019-09-01] MEDS: Docusate CAP* 100 MG PO PRN (20:34)
[2019-09-02] MEDS: Acetaminophen TAB* 325 MG PO PRN (06:19)
[2019-09-02 06:51] LABS: ABS Basophils 0.1 10^3/ul (0-0.2); ABS Eosinophils 0.1 10^3/ul (0-0.6); ABS Lymphocytes 1.2 10^3/ul (1.0-4.8); ABS Monocytes 0.4 10^3/ul (0-0.8); ABS Neutrophils 5.8 10^3/ul (1.5-7.7); Eosinophil % 1.2 %; Hematocrit 41 % (35-47); Hemoglobin 13.1 g/dL (12.0-16.0); Lymphocyte % 15.5 %; Mean Corpuscular HGB Conc 32 g/dL (31-36); Mean Corpuscular Hemoglobin 25 pg (27-31); Mean Corpuscular Volume 77 fL (80-97); Mean Platelet Volume 8.2 fL (7.4-10.4); Nucleated Red Blood Cells % 0.1; Platelet Count 206 10^3/uL (150-450); Red Blood Count 5.32 10^6 /uL (3.70-4.87); Red Cell Distribution Width 21 % (10-15); White Blood Count 7.6 10^3/uL (3.5-10.8)
[2019-09-02 07:06] LABS: Albumin 3.2 g/dL (3.2-5.2); Albumin/Globulin Ratio 0.9 (1-3); BUN/Creatinine Ratio 16.8 (8-20); Calcium 8.8 mg/dL (8.6-10.3); EGFR African American 32.2 (>60); EGFR Non-African American 26.6 (>60); Globulin 3.6 g/dL (2-4); Potassium 3.2 mmol/L (3.5-5.0); Total Protein 6.8 g/dL (6.4-8.9)
[2019-09-02] MEDS: Spironolactone TAB* 25 MG PO SCH (08:19)
[2019-09-02] MEDS: Magnesium Oxide TAB* 400 MG PO SCH (08:20)
[2019-09-02] MEDS: Pantoprazole TAB * 40 MG TAB PO SCH ×2 (08:20→21:04)
[2019-09-02] MEDS: CMC: Dabigatran CAP(NF) 150 MG CAP PO SCH ×2 (08:20→21:03)
[2019-09-02] MEDS: Metoprolol Succinate XL TAB* 100 MG PO SCH ×2 (08:20→21:04)
[2019-09-02] MEDS: Insulin LISPRO* 1 UNITS UNIT SUBCUT SCH ×3 (08:20→17:09)
[2019-09-02] MEDS: Aspirin EC TAB* 81 MG TAB.EC PO SCH (08:20)
[2019-09-02] MEDS ORDERED: Furosemide IV* 10 MG/ML VIAL (40 MG) IV ONE (10:00)
[2019-09-02] MEDS ORDERED: Acetaminophen / Codeine* #3 (300 MG/30 MG) TAB ONE (10:46)
[2019-09-02] MEDS: Acetaminophen / Codeine* #3 (300 MG/30 MG) TAB PO PRN ×2 (10:48→21:18)
[2019-09-02] MEDS ORDERED: Potassium Chlor TAB* 20 MEQ TAB.ER PO ONE (16:48)
--- NOTE | 2019-09-02 16:54 | PN ---
Subjective Date of Service: 09/02/19 Interval History: Reports ongoing sob.worried that she gained another pound.no cp Objective Active Medications: Acetaminophen (Tylenol Tab*) 650 mg PO Q4H PRN PRN Reason: mild to moderate pain Last Admin: 09/02/19 06:19 Dose: 650 mg Acetaminophen/Codeine Phosphate (Tylenol/Codeine 30 Mg Tab*) 1 tab PO Q6H PRN PRN Reason: PAIN - MODERATE Stop: 09/03/19 10:30 Last Admin: 09/02/19 10:48 Dose: 1 tab Aspirin (Aspirin Ec Tab*) 81 mg PO QAM [facility] Last Admin: 09/02/19 08:20 Dose: 81 mg Dabigatran (Pradaxa Cap(Nf)) 150 mg PO BID [facility] Last Admin: 09/02/19 08:20 Dose: 150 mg Dextrose (Dextrose 50% Vial 50 Ml*) 25 ml IV PUSH .FOR FS < 60 - SS PRN PRN Reason: FS < 60 Docusate Sodium (Colace Cap*) 100 mg PO BEDTIME PRN PRN Reason: CONSTIPATION Last Admin: 09/01/19 20:34 Dose: 100 mg Furosemide (Lasix Iv*) 40 mg IV 0800,1700 [facility] Insulin Glargine (Lantus(*)) 30 units SUBCUT BEDTIME [facility] Last Admin: 09/01/19 20:22 Dose: 30 unit Insulin Human Lispro (Humalog*) 0 units SUBCUT AC [facility]; Protocol Last Admin: 09/02/19 11:16 Dose: 6 units Magnesium Oxide (Magox 400 Tab*) 400 mg PO QAM [facility] Last Admin: 09/02/19 08:20 Dose: 400 mg Metoprolol Succinate (Toprol Xl Tab*) 100 mg PO BID [facility] Last Admin: 09/02/19 08:20 Dose: 100 mg Nitroglycerin (Nitroglycerin Tab 0.4 Mg*) 0.4 mg SL Q5M PRN PRN Reason: ANGINA Pantoprazole Sodium (Protonix Tab*) 40 mg PO BID [facility] Last Admin: 09/02/19 08:20 Dose: 40 mg Potassium Chloride (Klor Con Er Tab*) 40 meq PO ONCE ONE Stop: 09/02/19 16:49 Rosuvastatin Calcium (Crestor (Nf)) 40 mg PO QPM [facility] Last Admin: 09/01/19 18:01 Dose: 40 mg Sodium Chloride (Sodium Chloride 0.65% Nasal [place]*) 1 spray BOTH NARES Q4H PRN PRN Reason: CONGESTION Spironolactone (Aldactone Tab*) 50 mg PO QAM [facility] Last Admin: 09/02/19 08:19 Dose: 50 mg Vital Signs - 8 hr 09/02/19 09/02/19 09/02/19 09:06 10:48 11:30 Temperature 97.4 F 97.5 F Pulse Rate 61 80 Respiratory 16 16 16 Rate Blood Pressure 117/60 104/60 (mmHg) O2 Sat by Pulse 96 98 Oximetry 09/02/19 09/02/19 12:23 15:42 Temperature 97.2 F Pulse Rate 74 Respiratory 16 16 Rate Blood Pressure 110/62 (mmHg) O2 Sat by Pulse 98 Oximetry Oxygen Devices in Use Now: None Eyes: No Scleral Icterus Ears/Nose/Mouth/Throat: NL Teeth, Lips, Gums Neck: NL Appearance and Movements; NL JVP Respiratory: Symmetrical Chest Expansion and Respiratory Effort, - - crackles bases Cardiovascular: NL Sounds; No Murmurs; No JVD, - - irreg irreg Abdominal: NL Sounds; No Tenderness; No Distention Extremities: - - +edema Neurological: Alert and Oriented x 3 Result Diagrams: 09/02/19 06:34 09/02/19 06:34 Additional Lab and Data: Lab Results 09/01/19 Range/Units 11:03 Urine Color Straw Urine Appearance Clear Urine pH 7.0 (5-9) Ur Specific [place] 1.004 L (1.010-1.030) Urine Protein 1+(30 mg/dl) A (Negative) Urine Ketones Negative (Negative) Urine Blood 1+ A (Negative) Urine Nitrate Negative (Negative) Urine Bilirubin Negative (Negative) Urine Urobilinogen Negative (Negative) Ur Leukocyte Esterase Negative (Negative) Urine WBC (Auto) Trace(0-5/hpf) (Absent) Urine RBC (Auto) Trace(0-2/hpf) (Absent) Ur Squamous Epith Cells Present A (Absent) Urine Bacteria 1+ A (Absent) Urine Glucose Negative (Negative) Microbiology and Other Data: Microbiology 09/01/19 11:03 Urine Culture - Final Urine No Growth (<1,000 CFU/mL) Assess/Plan/Problems-Billing Assessment: - Patient Problems (1) Acute exacerbation of CHF (congestive heart failure) Current Visit: Yes Status: Acute Code(s): I50.9 - HEART FAILURE, UNSPECIFIED SNOMED Code(s): 192905342 Comment: Known EF<20%? Will recheck Echo in am Increase lasix to 40 mg iv bid and eval clinical progress and will monitor renal fx continue spironolactone continue b kem (2) Chest pain Current Visit: Yes Status: Acute Code(s): R07.9 - CHEST PAIN, UNSPECIFIED SNOMED Code(s): 62376085 Comment: no further chest pain troponin serial 0.03*3 h/o CAD h/o chronic dvt and parox a fib on anticoagulation chronically (3) Atrial fibrillation Current Visit: Yes Status: Acute Code(s): I48.91 - UNSPECIFIED ATRIAL FIBRILLATION SNOMED Code(s): 31609299 Comment: continue dabigatran continue metoprolol for rate control (4) Hypokalemia Current Visit: Yes Status: Acute Code(s): E87.6 - HYPOKALEMIA SNOMED Code( s): 63791036 Comment: sec diuresis replace K today (5) Diabetes Current Visit: Yes Status: Acute Code(s): E11.9 - TYPE 2 DIABETES MELLITUS WITHOUT COMPLICATIONS SNOMED Code(s): 40681146 Comment: insulin dependant insulin coverage (6) CKD (chronic kidney disease) requiring chronic dialysis Current Visit: Yes Status: Acute Code(s): N18.6 - END STAGE RENAL DISEASE; Z99.2 - DEPENDENCE ON RENAL DIALYSIS SNOMED Code(s): 932927791 Comment: h/o ckd with component of poss cardiorenal syndrome will monitor (7) Abnormal LFTs Current Visit: Yes Status: Acute Code(s): R94.5 - ABNORMAL RESULTS OF LIVER FUNCTION STUDIES SNOMED Code(s): 819371858 Comment: poss sec hepatic congestion in setting of chf will repeat cmp tomorrow and can decide if pt needs further eval with ultrasound based on cmp and clinical progress
[2019-09-02] MEDS: Furosemide IV* 10 MG/ML VIAL (40 MG) IV SCH (17:09)
[2019-09-02] MEDS: CMCS:Rosuvastatin (NF) 20 MG TAB PO SCH (17:40)
[2019-09-02] MEDS: Insulin GLARGINE(*) 1 UNITS UNIT SUBCUT SCH (21:04)
[2019-09-02] MEDS: Docusate CAP* 100 MG PO PRN (21:19)
[2019-09-03] MEDS: Acetaminophen / Codeine* #3 (300 MG/30 MG) TAB PO PRN ×3 (05:11→21:06)
[2019-09-03 05:55] LABS: ABS Basophils 0.1 10^3/ul (0-0.2); ABS Eosinophils 0.1 10^3/ul (0-0.6); ABS Lymphocytes 1.3 10^3/ul (1.0-4.8); ABS Monocytes 0.4 10^3/ul (0-0.8); ABS Neutrophils 5.6 10^3/ul (1.5-7.7); Eosinophil % 1.3 %; Hematocrit 43 % (35-47); Hemoglobin 13.6 g/dL (12.0-16.0); Lymphocyte % 17.2 %; Mean Corpuscular HGB Conc 32 g/dL (31-36); Mean Corpuscular Hemoglobin 25 pg (27-31); Mean Corpuscular Volume 78 fL (80-97); Mean Platelet Volume 8.2 fL (7.4-10.4); Nucleated Red Blood Cells % 0.1; Platelet Count 219 10^3/uL (150-450); Red Blood Count 5.52 10^6 /uL (3.70-4.87); Red Cell Distribution Width 21 % (10-15); White Blood Count 7.5 10^3/uL (3.5-10.8)
[2019-09-03 06:14] LABS: Albumin 3.2 g/dL (3.2-5.2); Albumin/Globulin Ratio 0.8 (1-3); BUN/Creatinine Ratio 14.3 (8-20); Calcium 8.7 mg/dL (8.6-10.3); EGFR African American 27.6 (>60); EGFR Non-African American 22.8 (>60); Globulin 3.9 g/dL (2-4); Potassium 3.3 mmol/L (3.5-5.0); Total Protein 7.1 g/dL (6.4-8.9)
[2019-09-03] MEDS: Magnesium Oxide TAB* 400 MG PO SCH (08:32)
[2019-09-03] MEDS: Pantoprazole TAB * 40 MG TAB PO SCH ×2 (08:32→21:05)
[2019-09-03] MEDS: Furosemide IV* 10 MG/ML VIAL (40 MG) IV SCH ×2 (08:32→16:02)
[2019-09-03] MEDS: Aspirin EC TAB* 81 MG TAB.EC PO SCH (08:33)
[2019-09-03] MEDS: Metoprolol Succinate XL TAB* 100 MG PO SCH ×2 (08:34→21:05)
[2019-09-03] MEDS: Spironolactone TAB* 25 MG PO SCH (08:34)
[2019-09-03] MEDS: CMC: Dabigatran CAP(NF) 150 MG CAP PO SCH ×2 (09:21→21:06)
[2019-09-03] MEDS: Insulin LISPRO* 1 UNITS UNIT SUBCUT SCH ×3 (09:22→16:49)
--- NOTE | 2019-09-03 11:09 | ECHO ---
*[facility]* [place] [address] Fax #: [phone] Transthoracic Echocardiogram Patient: Kinjal Alcantar : 1955 Study Date: 09/03/2019 Age: 63 Gender: F HR: 60 bpm Height: 68 in /172.7 cm BSA: 2.21 m^2 Weight: 239.5 lb /108.9 kg BMI: 36.5 kg/m^2 *Tanker Driver: * Barbara Miranda [facility] *Referring Physician: * Tonya Alvarado *Reading Physician: * Serenity Art MD Indications: Congestive Heart Failure. History: Congestive heart failure. Ischemic cardiomyopathy. PMH: Myocardial infarction. Functional status: Renal failure. Risk factors: Diabetes mellitus. Obese. Labs, prior tests, procedures, and surgery: ICD system implantation. Conclusions Summary: - Left ventricle: The cavity size is severely dilated. Wall thickness is at the upper limits of normal. Systolic function is severely reduced. The estimated ejection fraction is 15-20%. Doppler parameters are consistent with a reversible restrictive pattern, indicative of decreased left ventricular diastolic compliance and/or increased left atrial pressure (grade 3 diastolic dysfunction). - Right ventricle: The cavity size is moderately dilated. Pacer wire noted in the right ventricle. Systolic pressure is mildly to moderately increased. - Left atrium: The atrium is mildly to moderately dilated. - Right atrium: The atrium is mildly dilated. - Mitral valve: There is mild to moderate regurgitation. - Tricuspid valve: There is moderate-severe regurgitation. - Pulmonic valve: There is mild regurgitation. - C/t 11/21/2018, no overt significant changes. Study data: Transthoracic echocardiogram. Procedure: Transthoracic echocardiography was performed. Image quality was suboptimal. The study was technically limited due to body habitus. Patient refused Definity. Complete 2D, spectral Doppler, and color flow Doppler. Location: Bedside. Patient status: Inpatient. Patient room number: 444-02. Rhythm: Paced rhythm. Findings Left ventricle: Poorly visualized. The cavity size is severely dilated. Wall thickness is at the upper limits of normal. Systolic function is severely reduced. The estimated ejection fraction is 15-20%. Severe diffuse hypokinesis. Regional wall motion abnormalities cannot be excluded. Doppler parameters are consistent with a reversible restrictive pattern, indicative of decreased left ventricular diastolic compliance and/or increased left atrial pressure (grade 3 diastolic dysfunction). Right ventricle: Poorly visualized. The cavity size is moderately dilated. Pacer wire noted in the right ventricle. Systolic function is mildly reduced. Systolic pressure is mildly to moderately increased. Ventricular septum: There is abnormal interventricular septal wall motion consistent with an RV pacemaker. Left atrium: The atrium is mildly to moderately dilated. Right atrium: The atrium is mildly dilated. Pacer wire noted in right atrium. Mitral valve: The leaflets are mildly thickened. There is no evidence of stenosis. There is mild to moderate regurgitation. Aortic valve: The valve is trileaflet. The leaflets are mildly thickened. There is no evidence of stenosis. There is no significant regurgitation. Tricuspid valve: The leaflets are normal thickness. There is no evidence of stenosis. There is moderate-severe regurgitation. Pulmonic valve: The leaflets are normal thickness. There is no evidence of stenosis. There is mild regurgitation. Aorta: Ascending aorta: The ascending aorta is appears normal. Aortic arch: The aortic arch is appears normal. Descending aorta: The descending aorta is poorly visualized. Pericardium: A prominent pericardial fat pad is present. There is no significant pericardial effusion. Pulmonary arteries: The main pulmonary artery is normal-sized. Systolic pressure is mildly to moderately increased. Systemic veins: Inferior vena cava: The vessel is normal in size. There is (>= 50%) respiratory change in the IVC dimension. Measurements Left ventricle Value Ref Aortic valve Value Ref DANIELE, LAX (H) 7.1 cm 3.8 - 5.2 Georgie diam, ED 2.0 cm ----- ESD, LAX (H) 6.1 cm 2.2 - 3.5 Peak v, S 1.16 m/sec ----- FS, LAX (L) 14 % 27 - 45 VTI, S 19.4 cm ----- PW, ED, LAX (H) 1.0 cm 0.6 - 0.9 Mean grad, S 2.0 mm Hg ----- FS (L) 14 % 27 - 45 Peak grad, S 5.0 mm Hg ----- PW, ED (H) 1.0 cm 0.6 - 0.9 LVOT/AV, VTI ratio 0.41 ----- E', lat georgie, TDI 13.4 cm/sec >=10.0 E/e', lat georgie, 5 Mitral valve Value Ref TDI Peak E 0.72 m/sec ----- E', med georgie, TDI (L) 4.4 cm/sec >=7.0 Peak A 0.33 m/sec --- -- E/e', med georgie, 16 Decel time 194 ms ----- TDI Peak grad, D 2.1 mm Hg ----- E', avg, TDI 8.9 cm/sec Peak E/A ratio 2.2 ----- E/e', avg, TDI 8 <=14 Pulmonic valve Value Ref LVOT Value Ref Peak v, S 0.55 m/sec ----- Peak deangelo, S 0.53 m/sec Peak grad, S 1.0 mm Hg ----- VTI, S 8.0 cm IL v, ED 1.46 m/sec ----- Mean grad, S 0 mm Hg IL grad, ED 9 mm Hg ----- Ventricular septum Value Ref Tricuspid valve Value Ref IVS, ED 0.8 cm 0.6 - 0.9 TR peak v (H) 3.2 m/sec <=2.8 Peak RV-RA grad, S 41 mm Hg ----- Right ventricle Value Ref DANIELE, LAX 4.0 cm Aortic root Value Ref DANIELE minor ax, A4C (H) 4.4 cm 1.9 - 3.5 Root diam 2.6 cm <4.3 mid Pressure, S 44 mm Hg Ascending aorta Value Ref AAo AP diam, S 3.1 cm ----- Left atrium Value Ref AP dim, ES (H) 4.80 cm 2.70 - Decending aorta Value Ref 3.80 Jd peak deangelo 0.83 m/sec ----- ML dim, A4C 5.5 cm SI dim, A4C 6.2 cm Pulmonary artery Value Ref Vol/bsa, ES, 1-p (H) 46 ml/m^2 11 - 40 Pressure, S 43.0 mm Hg ----- A4C Vol/bsa, ES, A/L (H) 40 ml/m^2 16 - 34 Inferior vena cava Value Ref Diam 2.0 cm ----- Right atrium Value Ref SI dim, ES (H) 5.9 cm 3.4 - 5.3 ML dim, ES, A4C (H) 4.8 cm 2.6 - 4.4 Estimated RAP 3 mm Hg Legend: (L) and (H) mata values outside specified reference range. Prepared and electronically signed by Serenity Art MD 09/03/2019 11:08
[2019-09-03] MEDS ORDERED: Potassium Chlor TAB* 20 MEQ TAB.ER PO ONE (14:39)
--- NOTE | 2019-09-03 15:20 | PN ---
Subjective Date of Service: 09/03/19 Interval History: Pt is feeling slightly better today. She has been able to ambulate but still has to stop part way through due to SOB. She tells me she lost 2lb last night from urinating so much. She denies any further chest pain. She notes her legs are still markedly swollen. Objective Active Medications: Acetaminophen (Tylenol Tab*) 650 mg PO Q4H PRN PRN Reason: mild to moderate pain Last Admin: 09/02/19 06:19 Dose: 650 mg Acetaminophen/Codeine Phosphate (Tylenol/Codeine 30 Mg Tab*) 1 tab PO Q6H PRN PRN Reason: PAIN - MODERATE Last Admin: 09/03/19 11:43 Dose: 1 tab Aspirin (Aspirin Ec Tab*) 81 mg PO QAM [facility] Last Admin: 09/03/19 08:33 Dose: 81 mg Dabigatran (Pradaxa Cap(Nf)) 150 mg PO BID [facility] Last Admin: 09/03/19 09:21 Dose: 150 mg Dextrose (Dextrose 50% Vial 50 Ml*) 25 ml IV PUSH .FOR FS < 60 - SS PRN PRN Reason: FS < 60 Docusate Sodium (Colace Cap*) 100 mg PO BEDTIME PRN PRN Reason: CONSTIPATION Last Admin: 09/02/19 21:19 Dose: 100 mg Furosemide (Lasix Iv*) 40 mg IV 0800,1700 [facility] Last Admin: 09/03/19 08:32 Dose: 40 mg Insulin Glargine (Lantus(*)) 30 units SUBCUT BEDTIME [facility] Last Admin: 09/02/19 21:04 Dose: 30 unit Insulin Human Lispro (Humalog*) 0 units SUBCUT AC [facility]; Protocol Last Admin: 09/03/19 11:54 Dose: 3 units Magnesium Oxide (Magox 400 Tab*) 400 mg PO QAM [facility] Last Admin: 09/03/19 08:32 Dose: 400 mg Metoprolol Succinate (Toprol Xl Tab*) 100 mg PO BID [facility] Last Admin: 09/03/19 08:34 Dose: 100 mg Nitroglycerin (Nitroglycerin Tab 0.4 Mg*) 0.4 mg SL Q5M PRN PRN Reason: ANGINA Pantoprazole Sodium (Protonix Tab*) 40 mg PO BID [facility] Last Admin: 09/03/19 08:32 Dose: 40 mg Rosuvastatin Calcium (Crestor (Nf)) 40 mg PO QPM [facility] Last Admin: 09/02/19 17:40 Dose: 40 mg Sodium Chloride (Sodium Chloride 0.65% Nasal [place]*) 1 spray BOTH NARES Q4H PRN PRN Reason: CONGESTION Spironolactone (Aldactone Tab*) 50 mg PO QAM [facility] Last Admin: 09/03/19 08:34 Dose: 50 mg Vital Signs - 8 hr 09/03/19 09/03/19 09/03/19 07:26 08:00 11:00 Temperature 96.4 F Pulse Rate 59 Respiratory 16 16 16 Rate Blood Pressure 118/64 (mmHg) 09/03/19 09/03/19 11:43 13:22 Temperature Pulse Rate Respiratory 18 16 Rate Blood Pressure (mmHg) Oxygen Devices in Use Now: None Appearance: Middle aged obese female sitting on the edge of the bed in NAD Eyes: No Scleral Icterus Ears/Nose/Mouth/Throat: Mucous Membranes Moist Respiratory: Symmetrical Chest Expansion and Respiratory Effort, Clear to Auscultation Cardiovascular: NL Sounds; No Murmurs; No JVD - distant heart sounds, RRR, - - tense 2-3+ LE edema Abdominal: NL Sounds; No Tenderness; No Distention Extremities: No Clubbing, Cyanosis Skin: - - innumerable purple discolored scars on legs, scattered bruises on arms , few scabbed lesions on legs Neurological: Alert and Oriented x 3 Result Diagrams: 09/03/19 05:28 09/03/19 05:28 Additional Lab and Data: Lab Results 09/01/19 Range/Units 11:03 Urine Color Straw Urine Appearance Clear Urine pH 7.0 (5-9) Ur Specific [place] 1.004 L (1.010-1.030) Urine Protein 1+(30 mg/dl) A (Negative) Urine Ketones Negative (Negative) Urine Blood 1+ A (Negative) Urine Nitrate Negative (Negative) Urine Bilirubin Negative (Negative) Urine Urobilinogen Negative (Negative) Ur Leukocyte Esterase Negative (Negative) Urine WBC (Auto) Trace(0-5/hpf) (Absent) Urine RBC (Auto) Trace(0-2/hpf) (Absent) Ur Squamous Epith Cells Present A (Absent) Urine Bacteria 1+ A (Absent) Urine Glucose Negative (Negative) Microbiology and Other Data: Microbiology 09/01/19 11:03 Urine Culture - Final Urine No Growth (<1,000 CFU/mL) Assess/Plan/Problems-Billing Ms Alcantar is a 63 yo F who has a h/o severe ischemic CM, CAD, afib and DM who presented to the ER with c/o chest pain and SOB and was admitted for a systolic CHF exacerbation. - Patient Problems (1) Acute on chronic systolic heart failure Current Visit: Yes Status: Acute Code(s): I50.23 - ACUTE ON CHRONIC SYSTOLIC (CONGESTIVE) HEART FAILURE SNOMED Code(s): 751147760 Comment: Pt continues to have SOB with exertion. At rest she is comfortable. Continue lasix 40mg IV BID. Echo shows a severely reduced EF of 15-20%. Will continue IV lasix 40mg BID through tomorrow AM and follow renal function ( worsening in setting of IV diuresis). May need cardiology/nephrology consults to help determine most appropriate medication regimen. She staes she has been referred to the heart failure clinic at [place] but will not be seen until the new year. (2) Ischemic cardiomyopathy Current Visit: Yes Status: Chronic Code(s): I25.5 - ISCHEMIC CARDIOMYOPATHY SNOMED Code(s): 606619606 Comment: Management as above. (3) Chest pain Current Visit: No Status: Acute Priority: High Onset Date: 10/14/14 Code (s): R07.9 - CHEST PAIN, UNSPECIFIED SNOMED Code(s): 61037088 Comment: Pt with c/o sharp stabbing chest pain on admission. ? secondary to CHF. Trop 0.03 x3. No further work up at this time. She has a follow up with Dr. Valera on 09/06/19. Continue ASA, metoprolol, crestor. (4) CKD (chronic kidney disease), stage III Current Visit: Yes Status: Acute Code(s): N18.3 - CHRONIC KIDNEY DISEASE, STAGE 3 (MODERATE) SNOMED Code(s): 983369377 Comment: Creatinine worsening in the setting of IV diuresis but pt still has marked LE edema and fluid overload. ? CKD secondary to DM vs cardiorenal. Continue to follow BMP. (5) Atrial fibrillation Current Visit: Yes Status: Acute Code(s): I48.91 - UNSPECIFIED ATRIAL FIBRILLATION SNOMED Code(s): 36462696 Comment: In NSR. Continue metoprolol and pradaxa. (6) Diabetes Current Visit: Yes Status: Acute Code(s): E11.9 - TYPE 2 DIABETES MELLITUS WITHOUT COMPLICATIONS SNOMED Code(s): 96440739 Comment: Pt is a type II diabetic who is insulin dependent. Continue lantus 30 units at bedtime and lispro sliding scale. (7) HTN (hypertension) Current Visit: Yes Status: Chronic Code(s): I10 - ESSENTIAL (PRIMARY) HYPERTENSION SNOMED Code(s): 25212009 Comment: BP under excellent control. Continue metoprolol XL 100mg BID, lasix and spironolactone. (8) HLD (hyperlipidemia) Current Visit: Yes Status: Chronic Code(s): E78.5 - HYPERLIPIDEMIA, UNSPECIFIED SNOMED Code(s): 72207281 Comment: Continue crestor. (9) Hypothyroidism Current Visit: Yes Status: Acute Code(s): E03.9 - HYPOTHYROIDISM, UNSPECIFIED SNOMED Code(s): 80416509 Comment: last TSH was elevated at 10.41 but she was refusing synthroid due to possible severe allergic rxn to synthroid in past. ? T3 replacement. (10) DVT prophylaxis Current Visit: Yes Status: Acute Code(s): DHI0240 - SNOMED Code(s): 699128993 Comment: Pradaxa (11) Full code status Current Visit: Yes Status: Acute Code(s): Z78.9 - OTHER SPECIFIED HEALTH STATUS SNOMED Code(s): 580243322
[2019-09-03 16:03] LABS: TSH (Thyroid Stimulating Horm) 11.88 mcIU/mL (0.34-5.60)
[2019-09-03] MEDS: CMCS:Rosuvastatin (NF) 20 MG TAB PO SCH (16:51)
[2019-09-03] MEDS: Insulin GLARGINE(*) 1 UNITS UNIT SUBCUT SCH (21:06)
[2019-09-03] MEDS: Docusate CAP* 100 MG PO PRN (21:11)
[2019-09-04] MEDS: Acetaminophen / Codeine* #3 (300 MG/30 MG) TAB PO PRN (03:12)
[2019-09-04 06:37] LABS: BUN/Creatinine Ratio 14.9 (8-20); Calcium 8.6 mg/dL (8.6-10.3); EGFR African American 23.7 (>60); EGFR Non-African American 19.6 (>60); Magnesium 2.5 mg/dL (1.9-2.7); Potassium 3.3 mmol/L (3.5-5.0)
[2019-09-04] MEDS: Insulin LISPRO* 1 UNITS UNIT SUBCUT SCH ×2 (07:25→12:08)
[2019-09-04] MEDS: Spironolactone TAB* 25 MG PO SCH (08:24)
[2019-09-04] MEDS: Metoprolol Succinate XL TAB* 100 MG PO SCH (08:25)
[2019-09-04] MEDS: Aspirin EC TAB* 81 MG TAB.EC PO SCH (08:25)
[2019-09-04] MEDS: Magnesium Oxide TAB* 400 MG PO SCH (08:25)
[2019-09-04] MEDS: Pantoprazole TAB * 40 MG TAB PO SCH (08:25)
[2019-09-04] MEDS: Furosemide IV* 10 MG/ML VIAL (40 MG) IV SCH (08:26)
[2019-09-04] MEDS ORDERED: Potassium Chlor TAB* 20 MEQ TAB.ER PO SCH (09:00)
[2019-09-04] MEDS: CMC: Dabigatran CAP(NF) 150 MG CAP PO SCH (10:18)
[2019-09-04] MEDS ORDERED: Potassium Chlor TAB* 20 MEQ TAB.ER PO ONE (15:26)
[2019-09-04 16:38] VITALS: BP 123/59
[2019-09-04] MEDS ORDERED: CMC: Dabigatran CAP(NF) 75 MG CAP PO SCH (21:00)
--- NOTE | 2019-09-06 01:16 | DS ---
CC: Dr. Carson; Dr. Valera * DISCHARGE SUMMARY: DATE OF ADMISSION: 09/01/19 DATE OF DISCHARGE: 09/04/19 PRIMARY CARE PROVIDER: Dr. Carson. LAMINATOR PRINTED CIRCUIT BOARDS: Dr. Valera. PRINCIPAL DIAGNOSES: 1. Acute on chronic systolic congestive heart failure. 2. Acute on chronic renal failure. SECONDARY DIAGNOSES: 1. Ischemic cardiomyopathy. 2. Atrial fibrillation. 3. Type 2 diabetes. 4. Hypertension. 5. Hyperlipidemia. 6. Hypothyroidism. DISCHARGE MEDICATIONS: 1. Omeprazole 20 mg p.o. b.i.d. 2. Nitroglycerin 0.4 mg q.5 minutes p.r.n. chest pain. 3. Colace 100 mg p.o. q.h.s. p.r.n. constipation. 4. Tylenol 325 mg p.o. q.h.s. p.r.n. pain. 5. Lispro 8 to 12 units subcutaneous t.i.d. a.c. 6. Lantus 40 units subcutaneous q.h.s. 7. Lasix 60 mg p.o. q.a.m., 40 mg p.o. q.p.m. 8. Spironolactone 50 mg p.o. daily. 9. Crestor 40 mg p.o. q.h.s. 10. Magnesium oxide 400 mg p.o. daily. 11. Metoprolol XL 100 mg p.o. b.i.d. 12. Aspirin 81 mg p.o. daily. 13. Potassium chloride 20 mEq p.o. daily. 14. Pradaxa 75 mg p.o. b.i.d. (dose reduced due to worsening renal function.) HOSPITAL COURSE: Ms. Alcantar is a 63-year-old female who presented to the emergency room on 09/01/19 with complaints of shortness of breath and chest pain. The patient notes that she has had at least a 3-pound weight gain. So, she presented to the emergency room for evaluation. The patient was admitted for treatment of an acute on chronic systolic congestive heart failure exacerbation. The patient underwent transthoracic echocardiogram on 09/02/19 that revealed her EF was very low at 15% to 20%. The patient has already been followed by Dr. Valera as an outpatient and referred to the heart failure clinic in [place]. The patient was initially treated with single daily doses of bolus IV Lasix. Unfortunately, she did not have good response with this. The Lasix dose was then changed to 40 mg IV twice daily and with this she did urinate quite a bit. Her weight has decreased and her lower extremity edema did lessen minimally. Unfortunately, with the IV diuresis, the patient's creatinine bumped to 2.48 on the day of discharge. The patient does note that her breathing was feeling improved compared to admission. We discussed the fact that it is unlikely that I am going to make any substantial impact on her lower extremity edema at this time without severely hurting her kidneys. She wished to be discharged home generally because she was feeling better. She will place LA hose on and will try to keep her legs more elevated. The patient will need a basic metabolic panel prior to her appointment with her senior stereo compiler team lead on 09/06/19. PHYSICAL EXAMINATION: On the day of discharge, the patient is awake, alert, oriented, sitting up on the edge of the bed, in no acute distress. Cardiac exam revealed normal S1, S2 with a regular rate and rhythm. She has marked bilateral lower extremity pitting edema. This is slightly softer in the calves than the days prior. Lungs, however, are clear without crackles. Abdomen is soft, nontender, nondistended. The patient's skin does reveal excoriations on her arms and legs, looks like from picking. FOLLOWUP CONCERNS: The patient is being discharged home today, 09/04/19. ACTIVITY LEVEL: As tolerated. DIET: Heart healthy, diabetic. CONDITION ON DISCHARGE: Stable. The patient has been instructed to follow up with Dr. Carson on 09/11/19 at 11:[address] Valera on 09/06/19 at her already scheduled appointment. TIME SPENT: 35 minutes was spent discharging this patient. [id number]/[facility] #: [id number] [facility]ENTER[facility]ochitl
== END 2019-09-04 16:40 | disposition home or self-care (01) | DRG 291 ==
LOC: ED 10:33 → MEDTELE 13:53
PROVIDERS: ADMIT Internal Medicine; ATTEND Hospitalist
DX: I13.0 Hypertensive heart and chronic kidney disease with heart failure and stage 1 through stage 4 chronic kidney disease, or unspecified chronic kidney disease (principal); I50.23 Acute on chronic systolic (congestive) heart failure; I82.509 Chronic embolism and thrombosis of unspecified deep veins of unspecified lower extremity; I27.82 Chronic pulmonary embolism; I48.91 Unspecified atrial fibrillation; E11.22 Type 2 diabetes mellitus with diabetic chronic kidney disease; K21.9 Gastro-esophageal reflux disease without esophagitis; R33.9 Retention of urine, unspecified; E78.5 Hyperlipidemia, unspecified; E78.00 Pure hypercholesterolemia, unspecified; J44.9 Chronic obstructive pulmonary disease, unspecified; G47.30 Sleep apnea, unspecified; M19.041 Primary osteoarthritis, right hand; M19.071 Primary osteoarthritis, right ankle and foot; M19.012 Primary osteoarthritis, left shoulder; M19.011 Primary osteoarthritis, right shoulder; G43.909 Migraine, unspecified, not intractable, without status migrainosus; F32.9 Major depressive disorder, single episode, unspecified; I25.5 Ischemic cardiomyopathy; N18.3 Chronic kidney disease, stage 3 (moderate); E03.9 Hypothyroidism, unspecified; E87.6 Hypokalemia; R94.5 Abnormal results of liver function studies; I25.10 Atherosclerotic heart disease of native coronary artery without angina pectoris; I25.2 Old myocardial infarction; Z95.5 Presence of coronary angioplasty implant and graft; Z95.810 Presence of automatic (implantable) cardiac defibrillator; Z79.01 Long term (current) use of anticoagulants; Z88.1 Allergy status to other antibiotic agents; Z88.7 Allergy status to serum and vaccine; Z88.8 Allergy status to other drugs, medicaments and biological substances; Z88.6 Allergy status to analgesic agent; Z88.0 Allergy status to penicillin; Z91.030 Bee allergy status; Z91.041 Radiographic dye allergy status; Z91.040 Latex allergy status; Z87.891 Personal history of nicotine dependence; Z79.4 Long term (current) use of insulin; Z79.82 Long term (current) use of aspirin; Z79.899 Other long term (current) drug therapy
CPT/HCPCS: 36415; 71045; 80048; 80053; 81003; 81015; 82550; 82947; 83605; 83735; 83880; 84443; 84484; 85025; 85610; 85730; 86140; 87086; 93005; 93306; 99284; A9270-GY; J1940

== ENCOUNTER 2019-09-22 14:36 | Inpatient (IN) | payer MEDICARE ==
[2019-09-22] MEDS ORDERED: Albuterol/Ipratropium NEB.SOL* Albuterol 2.5 MG/Ipratropium 0.5 MG 3 ML INH ONE (14:56)
--- NOTE | 2019-09-22 15:12 | ED ---
Shortness of Breath - HPI Summary HPI Summary: 63-year-old female with a significant past medical history of coronary artery disease with 3 MIs and 1 stent, heart failure with reduced ejection fraction less than 20% status post TPA M/AICD, atrial fibrillation on anticoagulation, insulin-dependent diabetes mellitus, DVT/PE, chronic kidney disease presents to the emergency department today complaining of shortness of breath and leg pain. Patient states she woke last night and had a cough and trouble breathing. She also complains of left leg pain due to a diagnosis cellulitis for which she has been taking clindamycin for 11 days. She states the antibiotics may not be working because it comes and goes. She currently endorses out of 10 left leg pain near the left ankle and dorsal aspect of the left foot. Patient denies fever, chest pain, abdominal pain, and urination. Family history and surgical history noncontributory. Patient was recently discharged from [facility] for CHF exacerbation on 09/01/19. - History of Current Complaint Chief Complaint: EDGeneral Time Seen by Provider: 09/22/19 14:48 Hx Obtained From: Patient Onset/Duration: Sudden Onset, Gradual Onset Timing: Constant Current Severity: Severe Dyspnea At: [facility] - Allergy/Home Medications Allergies/Adverse Reactions: Allergies Allergy/AdvReac Type Severity Reaction Status Date / Time bee pollen Allergy Anaphylatic Verified 09/22/19 14:45 Shock bee venom protein (honey bee) Allergy Anaphylatic Verified 09/22/19 14:45 Shock cephalexin [From Keflex] Allergy Anaphylatic Verified 09/22/19 14:45 Shock Cephalosporins Allergy Anaphylatic Verified 09/22/19 14:45 Shock cobicistat [From Genvoya] Allergy Hives Verified 09/22/19 14:45 diphtheria toxoid,adsorbed Allergy Swelling Verified 09/22/19 14:45 diphtheria toxoid,fluid Allergy Swelling Verified 09/22/19 14:45 diphtheria,pertussis Allergy Swelling Verified 09/22/19 14:45 (acellular),te diphtheria,tetanus,Haem. B Allergy Swelling Verified 09/22/19 14:45 conjugat diphtheria,tetanus,poliomyelitis Allergy Swelling Verified 09/22/19 14:45 va elvitegravir [From Genvoya] Allergy Hives Verified 09/22/19 14:45 emtricitabine [From Genvoya] Allergy Hives Verified 09/22/19 14:45 glyburide Allergy Itching Verified 09/22/19 14:45 inositol niacinate Allergy Unknown Verified 09/22/19 14:45 [From Niacin No Flush] Reaction Details insulin glargine Allergy Hives Verified 09/22/19 14:45 [From Basaglar KwikPen U-100 Insulin] Iodine and Iodide Containing Allergy Hives Verified 09/22/19 14:45 Produc latex Allergy Unknown Verified 09/22/19 14:45 Reaction Details liraglutide [From Victoza] Allergy Hives Verified 09/22/19 14:45 losartan Allergy Unknown Verified 09/22/19 14:45 Reaction Details meclizine [From Antivert] Allergy See Comment Verified 09/22/19 14:45 meperidine Allergy See Comment Verified 09/22/19 14:45 metformin Allergy See Comment Verified 09/22/19 14:45 niacin Allergy Unknown Verified 09/22/19 14:45 Reaction Details NSAIDS (Non-Steroidal Allergy See Comment Verified 09/22/19 14:45 Anti-Inflamma ondansetron Allergy Itching Verified 09/22/19 14:45 Penicillins Allergy Hives/Diff. Verified 09/22/19 14:45 Breathing/I tching propoxyphene Allergy See Comment Verified 09/22/19 14:45 ramipril Allergy Unknown Verified 09/22/19 14:45 Reaction Details sitagliptin Allergy Rash Verified 09/22/19 14:45 tenofovir [From Genvoya] Allergy Hives Verified 09/22/19 14:45 Tetracyclines Allergy Hives Verified 09/22/19 14:45 atorvastatin AdvReac Muscle Ache Verified 09/22/19 14:45 Home Medications: Home Medications Furosemide TAB* [Lasix TAB*] 40 mg PO BID 09/22/19 [History Confirmed 09/22/19] PMH/Surg Hx/FS Hx/Imm Hx Endocrine/Hematology History: Reports: Hx Anticoagulant Therapy, Hx Diabetes, Hx Anemia Denies: Hx Blood Disorders, Hx Blood Transfusions, Hx Bone Marrow Disease, Hx Systemic Lupus Erythematosus, Hx Sickle Cell Disease, Hx Thyroid Disease, Hx Unexplained Bleeding, Other Endocrine/Hematological Disorders Cardiovascular History: Reports: Hx Angina, Hx Angioplasty, Hx Auto Implanted Cardiovert Defib, Hx Cardiac Arrest, Hx Cardiomegaly, Hx Congestive Heart Failure, Hx Coronary Artery Disease - STENT, Hx Deep Vein Thrombosis, Hx Hypercholesterolemia, Hx Hypotension, Hx Hypertension, Hx Myocardial Infarction , Hx Pacemaker/ICD, Hx Syncope, Hx Valvular Heart Disease, Other Cardiovascular Problems/Disorders - CAD with LVEF less than 20% Denies: Hx Aneurysm, Hx Embolism, Hx Peripheral Vascular Disease, Hx Rheumatic Fever Respiratory History: Reports: Hx Chronic Obstructive Pulmonary Disease (COPD), Hx Pulmonary Edema, Hx Pulmonary Embolism, Hx Sleep Apnea - CPAP, Other Respiratory Problems/Disorders - chronic shortness of breath Denies: Hx Asthma, Hx Bronchopulmonary Dysplasia, Hx Chronic Bronchitis, Hx Cystic Fibrosis, Hx Lung Cancer, Hx Pleural Effusion, Hx Pneumonia, Hx Seasonal Allergies GI History: Reports: Hx Gastroesophageal Reflux Disease, Other GI Disorders - periods of chronic diarrhea Denies: Hx Cirrhosis, Hx Crohn's Disease, Hx Diverticulosis, Hx Gall Bladder Disease, Hx Gastrointestinal Bleed, Hx Hiatal Hernia, Hx Irritable Bowel, Hx Jaundice, Hx Obstructive Bowel, Hx Ileostomy, Hx Pyloric Stenosis, Hx Ulcer History: Reports: Hx Kidney Infection Denies: Hx Acute Renal Failure, Hx Benign Prostatic Hyperplasia, Hx Chronic Renal Failure, Hx Dialysis, Hx Kidney Stones, Hx Renal Disease, Other Problems/Disorders Musculoskeletal History: Reports: Hx Arthritis - HANDS, RT ANKLE, SHOULDERS Denies: Hx Back Problems, Hx Bursitis, Hx Congenital Bone Abnormalities, Hx Fibromyalgia, Hx Gout, Hx Orthopedic Injury, Hx Osteoporosis, Hx Scoliosis, Hx Tendonitis, Other Musculoskeletal History Sensory History: Reports: Hx Contacts or Glasses Denies: Hx Cataracts, Hx Eye Injury, Hx Eye Prosthesis, Hx Glaucoma, Hx Legally Blind, Hx Macular Degeneration, Hx Vision Problem, Hx Deafness, Hx Hearing Aid, Hx Hearing Problem, Other Sensory Impairments Opthamlomology History: Reports: Hx Contacts or Glasses Denies: Hx Cataracts, Hx Eye Injury, Hx Eye Prosthesis, Hx Glaucoma, Hx Legally Blind, Hx Macular Degeneration, Hx Vision Problem, Other Sensory Impairments Neurological History: Reports: Hx Headaches, Hx Migraine Denies: Hx Dementia, Hx Developmental Delay, Hx Nerve Disease, Hx Seizures, Hx Spinal Cord Injury, Hx Transient Ischemic Attacks (TIA), Other Neuro Impairments/Disorders Psychiatric History: Reports: Hx Depression - NO MEDS Denies: Hx Anxiety, Hx Attention Deficit Hyperactivity Disorder, Hx Autism, Hx Eating Disorder, Hx Oppositional [place] Disorder, Hx Panic Disorder, Hx Post Traumatic Stress Disorder, Hx Inpatient Treatment, Hx Community Mental Health Tx, Hx Schizophrenia, Hx Bipolar Disorder, Hx Suicide Attempt, Hx of Violent Episodes Against Others, Other Psychiatric Issues/Disorders - Cancer History Hx Hematologic Symptoms: No Hx Chemotherapy: No Hx Radiation Therapy: No Hx Palliative Cancer Treatment: No - Surgical History Surgery Procedure, Year, and Place: 2012 removal of screw in left thumb and trigger release. 2010 PACEMAKER/DEFIB REPLACED [place]. 2005 CARDIAC STENT [place]. 2006 PACEMAKER/DEFIB [place]. 1998 [place]ERECTOMY [place]. 1983 & 1985 C -[place]. 1976 [place]OMY [place]. 1973 [place]SILECTOMY [place] Hx Anesthesia Reactions: No - STATES SHE GOES INTO CHF EASILY - Immunization History Date of Tetanus Vaccine: 06/2012 Date of Influenza Vaccine: Fall 2013 Infectious Disease History: No Infectious Disease History: Denies: Hx Clostridium Difficile, Hx Hepatitis, Hx Human Immunodeficiency Virus (HIV), Hx of Known/Suspected MRSA, Hx Shingles, Hx Tuberculosis, Hx Known/ Suspected VRE, Hx Known/Suspected VRSA, History Other Infectious Disease, Traveled Outside the in Last 30 Days - Family History Known Family History: Positive: Other - CANCER, ETOH ABUSE - Social History Alcohol Use: Rare Hx Substance Use: No Substance Use Type: Reports: None Hx Tobacco Use: Yes Smoking Status (MU): Former Smoker Type: Cigarettes Amount Used/How Often: 1 PPD, 3 cigarettes/day by the end Length of Time of Smoking/Using Tobacco: PT states during the time she smoked she stopped off and on . Have You Smoked in the Last Year: No Review of Systems Positive: Fatigue. Negative: Fever, Chills Eyes: Negative ENT: Negative Negative: Chest Pain Positive: Shortness Of Breath, Cough Gastrointestinal: Negative Genitourinary: Negative Musculoskeletal: Negative Positive: Rash Neurological: Negative Positive: Anxious All Other Systems Reviewed And Are Negative: Yes Physical Exam - Summary Physical Exam Summary: Patient is in respiratory distress upon entering the room. Patient is using accessory muscles and has signs of cyanosis. There is no stridor but there is evidence of pulmonary edema which can be appreciated from the bedside. Patient speaks in 2 word broken sentences. Auscultation reveals significant rales throughout the precordium. Patient has noted erythema and edema of the left ankle and dorsal left foot which is consistent with her history of cellulitis. The skin in this area is warm to the touch and have plus 1 pitting edema. There are multiple dermatologic macules noted throughout lower shot is consistent with venous insufficiency. Triage Information Reviewed: Yes Vital Signs On Initial Exam: Initial Vitals Temp Pulse Resp BP Pulse Ox 97.5 F 70 20 114/84 94 09/22/19 14:40 09/22/19 14:40 09/22/19 14:40 09/22/19 14:40 09/22/19 14:40 Vital Signs Reviewed: Yes Appearance: Positive: No Pain Distress, Well-Nourished, Ill-Appearing, Obese Skin: Positive: Warm, Skin Color Reflects Adequate Perfusion Eyes: Positive: EOMI, MAXIM Respiratory/Lung Sounds: Positive: Breath Sounds Present, Rales, Unable to speak in full sentences, Fatigue Cardiovascular: Positive: RRR, S1, S2 Abdomen Description: Positive: Nontender, Soft Musculoskeletal: Positive: Strength/ROM Intact Neurological: Positive: Sensory/Motor Intact, Alert, Oriented to Person Place, Time, Normal Gait, Facial Symmetry, Speech Normal Psychiatric: Positive: Affect/Mood Appropriate, Anxious AVPU Assessment: Alert Procedures - Sedation Patient Received Moderate/Deep Sedation with Procedure: No Diagnostics - Vital Signs Vital Signs Temp Pulse Resp BP Pulse Ox 09/22/19 14:40 97.5 F 70 20 114/84 94 - Laboratory Result Diagrams: 09/22/19 15:14 09/22/19 15:05 Lab Statement: Any lab studies that have been ordered have been reviewed, and results considered in the medical decision making process. Course/Dx - Course Course Of Treatment: Patient was evaluated in the emergency department today for shortness of breath and cellulitis. She was seen and examined her vitals are stable and she is afebrile. An EKG was done promptly which showed atrial paced rhythm at 82 bpm. No evidence of STEMI. Patient's physical exam is consistent with CHF exacerbation and she was showing signs of labored breathing and hypoxia. Patient placed on BiPAP by respiratory therapist and given 40 mg of Lasix IV. After approximately 45 minutes on BiPAP patient was removed from BiPAP. Patient's oximetry sat remained around 94% and patient did well without BiPAP. Labs labs returned showing no leukocytosis with a white blood cell count of 9.0. No evidence of respiratory acidosis on VBG. lid is 3.0 which is presumed due to hypoxia. Troponin 0.04 which is presumed due to hypoxia however the redrawn for serial troponin to investigate [place]. BNP is greater than 1300 suggesting acute hypoxemic respiratory failure due to CHF exacerbation. Influenza negative. kidney functions are decreased however this is patients baseline. Patient is also hyperglycemic with a blood glucose of 196. Hospitalist Dr. Zabala was consulted for admission of the patient at approximately [address] Zabala agreed to admit the patient for CHF exacerbation and left leg cellulitis. - Diagnoses Differential Diagnosis/HQI/PQRI: Positive: Airway Obstruction, Asthma, Bronchitis, CHF, COPD Exacerbation, Pneumonia, Pulmonary Edema Provider Diagnoses: Acute exacerbation of CHF (congestive heart failure), Redness and swelling of lower leg - Physician Notifications Discussed Care of Patient With: Christal Zabala - agreed to admit the patient for CHF exacerbation. Time Discussed With Above Provider: 16:30 Instructed by Provider To: Admit As Inpatient Admit/Transition Orders Completed By ED Provider: No Discharge ED - Sign-Out/Discharge Documenting (check all that apply): Patient Departure - Discharge Plan Condition: Stable Disposition: ADMITTED TO [facility] Referrals: Gia Carson MD [Primary Care Provider] - - Billing Disposition and Condition Condition: STABLE Disposition: Admitted to [facility] - Attestation Statements Provider Attestation: I was available for consult. This patient was seen by the BAKARI. The patient was not presented to, seen by, or examined by me. Marcelo Desai MD
--- OUTSIDE RECORDS SUMMARY | 2019-09-22 15:24 | XMS REPORT | Summary of Care ---
:1955 Author Organization [facility] Address [address] [facility] [place] [address] Care Team Providers Name Role Phone Gia Carson MD Primary Care Provider Sheila Atkinson RN Unavailable Reason for Visit Reason Comments Transitional Care Management [facility] 09/01/19-09/04/19, Dx CHF Constipation Pt has constipation Cellulitis left leg, [place] 09[place]08 from [place] Encounter Details Date Type Department Care Team Description 09/11/2019 Office Visit [facility]i, Yeast infection (Primary Dx); Practice Gia Leija MD Pain in both hands; [address] Chronic pain syndrome; [place], [place] [id number] [place] [address] Cellulitis of left lower extremity; [phone] Hospital discharge follow-up; Sciatica of right side; Type 2 diabetes mellitus with complication, with long-term current use of insulin ([facility]); Acute on chronic diastolic CHF (congestive heart failure) ([facility]); Acute renal failure superimposed on stage 3 chronic kidney disease, unspecified acute renal failure type ([facility]); Uncontrolled type 2 diabetes mellitus with hyperosmolarity without coma , with long-term current use of insulin ([facility]); Hx pulmonary embolism Allergies Active Allergy Reactions Severity Noted Date [...] as of this encounter (statuses as of 09/11/2019) Medications Medication Sig Dispensed Refills Start End [...] 9 externally 10-14 days CreamIndications: Tinea corporis Glucose Blood In 1 Strip by In [...] with other specified complication ([facility]) fluticasone [place] 2 Sprays 1 Bottle 0 Active (FLONASE) [...] EVERY heart failure ([facility]) DAY CRESTOR 40 MG Oral Take 1 Tab by 90 Tab 3 Active TabIndications: mouth DAILY. 9 Coronary artery disease involving [place] coronary artery of [place] heart without angina pectoris BD PEN NEEDLE MATIAS USE 150 Each 5 Active U/F 32G X 4 MM Does DIRECTED 4 9 not apply TIMES DAILY MiscIndications: Uncontrolled type 2 diabetes mellitus with hyperosmolarity without coma, with long-term current use of insulin ([facility]) metoprolol succinate TAKE ONE 180 Tab 3 Active (TOPROL XL) 100 MG TABLET BY 9 Oral TABLET SR 24 MOUTH TWICE A HRIndications: DAY Chronic systolic heart failure ([facility]) LANTUS SOLOSTAR 100 Inject 38-40 10 Each 11 Active UNIT/ML Subcutaneous Units beneath 9 Solution the skin DAILY Pen-injectorIndicati AT 1400. PRISCILA ons: Type 2 diabetes mellitus with complication, with long-term current use of insulin ([facility]) albuterol HFA Take 2 Puffs 2 Inhaler [...] beneath 9 Solution the skin Pen-injector DAILY. RPISCILA, please give her 2 boxes Omeprazole delayed Take 20 mg by 180 Cap 3 Active rel cap 20 MG Oral mouth TWICE 9 CAPSULE DELAYED DAILY. New RELEASEIndications: dose Gastroesophageal reflux disease without esophagitis furosemide (LASIX) Take 1 Tab by 0 Active 40 MG Oral Tab mouth 9 DIRECTED. Take 60mg in am, 40mg in pm potassium chloride EVERY DAY 0 Active (KLOR-CON) 20 MEQ 9 Oral Tab CR acetaminophen-codein Take 1 Tab by 30 Tab 0 Active e (TYLENOL #3) mouth EVERY 9 300-30 MG Oral FOUR HOURS TabIndications: Pain NEEDED (severe in both hands, pain). Max Chronic pain Daily Amount: syndrome 6 Tabs. Chronic pain syndrome fluconazole Take 1 Tab by 1 Tab 0 Active (DIFLUCAN) 150 MG mouth DAILY. 9 Oral TabIndications: Yeast infection Clindamycin HCl 300 Take 1 Cap by 21 Cap 1 09/18/20 Active MG Oral mouth THREE 9 19 CapIndications: TIMES DAILY Cellulitis of left for 7 days. lower extremity dabigatran (PRADAXA) Take 1 Cap by 180 Cap 3 Active 150 MG Oral mouth TWICE 9 CapIndications: Hx DAILY. Cancel pulmonary embolism the 75 mg tabs dabigatran (PRADAXA) Take 1 Cap by 180 Cap 3 09/11/20 Discontinued 150 MG Oral mouth TWICE 9 19 (Reorder) CapIndications: Hx DAILY. pulmonary embolism potassium chloride Take 1 Tab by 180 Tab 3 09/11/20 Discontinued (K-TAB) 10 MEQ Oral mouth DAILY. 9 19 (Dose Tab CRIndications: Adjustment) Chronic systolic heart failure (HCC) fluconazole Take 1 Tab by 1 Tab 0 09/11/20 Discontinued (DIFLUCAN) 150 MG mouth DAILY. 9 19 (Reorder) Oral TabIndications: Cellulitis of right lower extremity acetaminophen-codein Take 1 Tab by 30 Tab 0 09/11/20 Discontinued e (TYLENOL #3) mouth EVERY 9 (Reorder) 300-30 MG Oral FOUR HOURS TabIndications: Pain NEEDED (severe in both hands, pain). Max Chronic pain Daily Amount: syndrome 6 Tabs. Chronic pain syndrome Hospital, Clinic, or Ordered Dose Route Frequency Start Date End Date Status Other Facility Administered Medication albuterol 2.5 mg IN-SVN NOW 06/26/2019 09/11/2019 Discontinued (PROVENTIL, VENTOLIN) nebulizer solution (RT ADMIN) (5 MG/ML) 0.5%Indications: Wheezing documented as of this encounter (statuses as of 09/11/2019) Active Problems Problem Noted Date Chronic obstructive pulmonary disease 11/24/2018 Recurrent pulmonary emboli 11/24/2018 Moderate episode of recurrent major depressive disorder 11/24/2018 Uncontrolled type 2 diabetes mellitus with hyperosmolarity without coma, 01/27 with long-term current use of insulin Mitral valve insufficiency 01/06/2018 Current use of jail anticoagulation 01/06/2018 ICD (implantable cardioverter-defibrillator) in place 10/14/2017 Hx pulmonary embolism 12/08/2016 ANNE (obstructive sleep apnea) 08/20/2016 Overview: [facility]AP through [facility] [place] [facility] Polyarthritis 05/04/2016 Type 2 diabetes mellitus with complication, with long-term current use of insulin Coronary artery disease 05/04/2016 H/O bee sting allergy 05/04/2016 Coronary artery disease involving [place] coronary artery of [place] heart 04/01 without angina pectoris Pacemaker 07/27/2011 Overview: Mfg. [employer] Model: V-193 ATLAS VR Date of Implant: OCTOBER 25, 2006 Chronic systolic heart failure 07/27/2011 Paroxysmal VT 07/27/2011 Other left bundle branch block 07/27/2011 CAD (coronary artery disease) 10/22/2006 Acute myocardial infarction, unspecified site, initial episode of care 2005 documented as of this encounter (statuses as of 09/11/2019) Immunizations Name Administration Dates Next Due Influenza [...] Sign Reading Time Taken Comments Blood Pressure 110/78 09/11/2019 11:31 AM EST Pulse 60 09/11/2019 11:31 AM EST Temperature 36.1 09/11/2019 11:31 AM C (96.9 EST F) Respiratory Rate 20 09/11/2019 11:31 AM EST Oxygen Saturation 99% 09/11/2019 11:31 AM EST Inhaled Oxygen Concentration - - Weight 109.2 kg (240 lb 12.8 oz) 09/11/2019 11:31 AM EST Height 172.7 cm (5' 8") 09/11/2019 11:31 AM EST Body Mass Index 36.61 09/11/2019 11:31 AM EST documented in this encounter Patient Instructions Patient InstructionsGia Carson MD - 09/11/2019 11:20 AM ESTYour legs are swollen. Please remember to take your morning and afternoon furosemide. I sent in clindamycin for the cellulitis of your left leg. Use prunes and a stool softener for constipation. If you want to see a teacher education instructor, a kidney specialist, and I will refer you. Keep your appointment in October and we will repeat laboratory tests then. Your kidney fuction is better so continue Pradaxa 150 mg twice a day documented in this encounter Progress Notes Gia Carson MD - 09/11/2019 11:20 AM EST Nursing Notes: Dilcia Matthew LPN 09/11/2019 11:44 AM Signed Chief Complaint Patient presents with Transitional Care Management [facility] [place]/01/19-09/04/19, Dx CHF Constipation Pt has constipation Cellulitis left leg, [place]08 from [place] faustinoDilcia Dewitt LPN 09/11/2019 11:56 AM Signed This report was requested by: Dilcia Matthew | Reference #: [id number] Others' Prescriptions Patient Name: Kinjal Alcantar Date: 1955 Address: [facility] [address] [place] [address], [place] [address] Sex: Female Rx Written Rx Dispensed Drug Quantity Days Supply Prescriber Name 08/08/2019 08/08/2019 acetaminophen-cod #3 tablet 30 5 Gia Carson MD 06/06/2019 06/10/2019 acetaminophen-cod #3 tablet 30 5 Gia Carson MD 04/11/2019 04/12/2019 acetaminophen-cod #3 tablet 30 5 Gia Carson MD 02/06/2019 02/07/2019 acetaminophen-cod #3 tablet 30 5 Gia Carson MD 11/09/2018 11/12/2018 acetaminophen-cod #3 tablet 30 5 Gia Carson MD 09/21/2018 09/21/2018 acetaminophen-cod #3 tablet 30 5 Gia Carson MD This report was requested by: Gia Carson | Reference #: [id number] My Prescriptions Patient Name: Kinjal Alcantar Date: 1955 Address: [facility] [address] [place] [address] Sex: Female Rx Written Rx Dispensed Drug Quantity Days Supply Prescriber Name Payment Method Dispenser 08/08/2019 08/08/2019 acetaminophen-cod #3 tablet 30 5 Gia Carson MD Chief Complaint: Hospital Follow up HPI: TCM Statement. Review of the hospitalization: I am seeing for [facility] The date of discharge was: 09/01-09/04/19 The discharge diagnosis was Acute on chronic congestive heart failure, acute on chronic renal failure. She saw Hermann Valera MD in follow up 09/06/19. I reviewed the discharge summary, discharge instructions, and pertinent additional documentation obtained during hospitalization. I reconciled the medications. I also reviewed the Transition of Care documentation done by staff. The tests that were not available at the time of discharge were reviewed. Additional tests which are not yet available include: none Since hospitalization has patient improved? Creatinine is improved She is taking furosemide 60 mg in am. 40 mg pm some days. Diabetes: She is taking Lantus 40 units qhs and watching her diet. Am glucose 90. Meat turns her stomach right now. She is eating vegetables. Current patient concerns: Left leg is red, s/p [place] at hospital that scraped her leg. It became red3 days ago, foot is more swollen. Right sciatica is acting up Patient Active Problem List Diagnosis Acute myocardial infarction, unspecified site, initial episode of care CAD (coronary artery disease) Pacemaker Chronic systolic heart failure (HCC) Paroxysmal VT (HCC) Other left bundle branch block Coronary artery disease involving sel[place] coronary artery of [place] heart without angina pectoris Polyarthritis Type 2 diabetes mellitus with complication, with long-term current use of insulin (HCC) Coronary artery disease H/O bee sting allergy ANNE (obstructive sleep apnea) Hx pulmonary embolism ICD (implantable cardioverter-defibrillator) in place Mitral valve insufficiency Current use of jail anticoagulation Uncontrolled type 2 diabetes mellitus with [...] Coronary artery disease Coronary artery disease involving sel[place] coronary artery of sel[place] heart without angina pectoris 04/01/2016 Diabetes mellitus [...] LEFT; Surgeon: Francisco Murry MD ; Location: [facility] SECTION NOS x 2 COLONOSCOPY years ago, declines repeat INSERTION BI-VENTRICULAR ICD 08/10/2011 Procedure:INSERTION BI-VENTRICULAR ICD; Surgeon:ROB BLAIR; Location:[facility]; Laterality:N/A;UPGRADE TO BI-V ICD LT WA APPENDECTOMY WA INS NEW/RPLCMT PRM PACEMAKR W/TRANS ELTRD ATRIAL WA TOTAL ABDOM HYSTERECTOMY TONSILLECTOMY Outpatient Medications as of 09/11/2019 Medication Sig Dispense Refill acetaminophen-codeine (TYLENOL #3) [...] 0 fluticasone (FLONASE) 50 MCG/ACT Nasal Suspension [place] 2 Sprays in nose DIRECTED. 2 sprays in each nostril once daily 1 Bottle 0 furosemide (LASIX) 40 MG Oral Tab Take 1 Tab by mouth DIRECTED. Take 60mg in am, 40mg in pm 0 Glucose Blood In Vitro Strip 1 Strip [...] SOLOSTAR 100 UNIT/ML Subcutaneous Solution Pen-injector Inject 40 Units beneath the skin DAILY AT 1400. [...] BY MOUTH EVERY DAY 90 Tab 3 Facility-Administered Medications as of 09/11/2019 Medication Dose Route Frequency Provider Last Rate Last Dose albuterol (PROVENTIL, VENTOLIN) nebulizer solution (RT ADMIN) (5 MG/ML) 0.5% 2.5 mg Inhalation-SVN NOW Gia Carson MD Allergies Allergen Reactions Altace [Fd&C Blue #2-Ramipril] [...] Financial resource strain: Not on file Food insecurity Worry: Not on file Inability: Not on file Transportation needs Medical: Not on file Non-medical: Not on file Tobacco Use Smoking status: Former Smoker Packs/day: 0.50 Years: 22.00 Pack years: 11.00 Types: Cigarettes Last attempt to quit: 06/20/2006 Years since quittin.2 Smokeless tobacco: Never Used Substance and Sexual Activity Alcohol use: No Drug use: Yes Types: Prescription Sexual activity: Not on file Lifestyle Physical activity Days per week: Not on file Minutes per session: Not on file Stress: Not on file Relationships Social connections Talks on phone: Not on file Gets together: Not on file Attends scientology service: Not on file Active member of club or organization: Not on file Attends meetings of clubs or organizations: Not on file Relationship status: Not on file Intimate partner violence Fear of current or ex partner: Not [...] Narrative Lives alone, single. Children live in [place]. Retired [employer]- no known exposure to asbestos, silica or tuberculosis Has a coal stove for heating. Family History Problem Relation Age of Onset Heart Mother Cancer Father with bone metastases, possible pancreatic Heart Sister RBBB Cancer Sister breast cancer Stroke Paternal Grandfather Heart Maternal Grandfather Heart Maternal Grandmother Diabetes Maternal Grandmother Health Maintenance Topic Date Due DTaP/Tdap/Td Vaccines (1 - Tdap) 1965 ZOSTER IMMUNIZATION SERIES (1 of 2) 2004 Diabetic Eye Exam 06/07/2018 HEMOGLOBIN A1C 11/08/2019 FOOT EXAM 11/25/2019 LIPID DISORDER SCREENING 05/03/2020 URINE MICROALBUMIN 05/12/2020 DEPRESSION SCREENING 08/08/2020 INFLUENZA VACCINE Completed HEPATITIS A IMMUNIZATION SERIES Aged Out HPV IMMUNIZATION SERIES Aged Out MENINGOCOCCAL VACCINE IMM Aged Out Office Visit on 09/06/2019 Component Date Value Ref Range Status NT PRO BNP 09/06/2019 5,860* <125 pg/ml Final Recommended cut points for the diagnostic evaluation of heart failure patients with acute dyspnea* Ages (years) Optimal [place] (pg/ml) <50 450 50-75 900 >75 1800 *The [place] Journal of Cardiology NTproBNP results should be interpreted in the context of the overall picture. Serum concentrations of natriuretic peptides may be elevated in patients with acute myocardial infarction and renal insufficiency. Certain drugs may alter results. Heterophilic antibodies are known to cause interference withimmunoassays. Results which are inconsistent with clinical observation indicate a need for additional testing. NTproBNP testing performed on [employer]. Results will not correlate with other methodologies. Sodium 09/06/2019 140 134 - 145 mmol/L Final Potassium 09/06/2019 3.8 3.5 - 5.1 mmol/L Final Chloride 09/06/2019 100 98 - 107 mmol/L Final CO2 09/06/2019 29 22 - 30 mmol/L Final Calcium 09/06/2019 8.8 8.3 - 10.1 mg/dl Final Albumin 09/06/2019 3.3* 3.5 - 5.0 g/dl Final BUN 09/06/2019 26* 7 - 17 mg/dl Final Creatinine 09/06/2019 1.9* 0.7 - 1.2 mg/dl Final Glucose 09/06/2019 205* 70 - 99 mg/dl Final Total Protein 09/06/2019 7.2 6.3 - 8.2 g/dl Final Total Bilirubin 09/06/2019 0.9 0.0 - 1.1 MG/DL Final AST 09/06/2019 38 15 - 46 U/L Final ALT 09/06/2019 22 9 - 52 U/L Final Alkaline Phosphatase 09/06/2019 213* 40 - 150 U/L Final eGFR 09/06/2019 27 See Interpretation Below ml/min/1.73ml Sq Final Estimated GFR Interpretation: Above 60ml/min/1.73m2 = Normal Renal Function 30-59 ml/min/1.73m2 = Stage 3 Chronic Kidney Disease 15-29 ml/min/1.73m2 = Stage 4 Chronic Kidney Disease Less than 15 ml/min/1.73m2 = Stage 5 Chronic Kidney Disease The GFR value is calculated using the Modification of Diet in Renal Disease ( MDRD) Study Equation which can be found at: https://www.kidney.org/content/scef-yzbrx-ibdsbbvs BUN/Creatinine Ratio 09/06/2019 14 6 - 22 RATIO Final Anion Gap 09/06/2019 11 3 - 11 mmol/L Final A/G Ratio 09/06/2019 0.8 0.8 - 2.0 ratio Final Lab Results Component Value Date GLYCO 10.9 (H) 08/08/2019 GLYCO 9.5 (H) 05/12/2019 GLYCO 9.5 (H) 11/16/2018 ROS Review of Systems - General ROS: negative for - chills or fever ENT ROS: negative for - nasal congestion or vocal changes Respiratory ROS: no cough, shortness of breath, or wheezing Cardiovascular ROS: negative for - chest pain, but has LE edema Gastrointestinal ROS: positive for - constipation negative for - blood in stools, melena or nausea/vomiting Musculoskeletal ROS: positive for - left sided sciatica flare Dermatological ROS: rash LLE, was scratched in hospital with [place] hose and fears cellulitis again. Exam: BP 110/78 (BP Location: Left arm, Patient Position: Sitting) | Pulse 60 | Temp 96.9 F (36.1 C) (Tympanic) | Resp 20 | Ht 5' 8" (1.727 m) | Wt 240 lb 12.8 oz (109.2 kg) | SpO2 99% | BMI 36.61 kg/m Physical Exam Physical Examination: General appearance - alert, tired but otherwise well appearing, and in no distress Mental status - alert, oriented to person, place, and time, normal mood, behavior, speech, dress, motor activity, and thought processes Eyes - pupils equal , sclera anictericl Neck - supple, no cervical or supraclavicular adenopathy, carotids upstroke normal bilaterally, no bruits, thyroid exam: thyroid is normal in size without nodules or tenderness, no neck masses palpated. Chest/Lungs - clear to auscultation, no wheezes, rales or rhonchi, symmetric air entry, good aeration Heart - normal rate, regular rhythm Abdomen - soft, non tender on palpation, nondistended, no masses or hepatosplenomegaly, bowel soundsnormal, normal to percussion, no guarding or rebound. No costervertebral angle tenderness Neurological - alert, oriented, normal speech, no gross focal findings or movement disorder noted Extremities - dorsalis pedis pulses normal, 1-2+ bilateral LE edema, Erythema, not very warm, left lateral ankle, early cellulitis. No clubbing or cyanosis ASSESSMENT/PLAN: ICD-9-CM ICD-10-CM 1. Yeast infection 112.9 B37.9 fluconazole (DIFLUCAN) 150 MG Oral Tab 2. Pain in both hands 729.5 M79.641 acetaminophen-codeine (TYLENOL #3) 300-30 MG Oral Tab M79.642 3. Chronic pain syndrome 338.4 G89.4 acetaminophen-codeine (TYLENOL #3) 300-30 MG Oral Tab 4. Cellulitis of left lower extremity 682.6 L03.116 Clindamycin HCl 300 MG Oral Cap 5. Hospital discharge follow-up V67.59 Z09 6. Sciatica of right side 724.3 M54.31 7. Type 2 diabetes mellitus with complication, with long-term current use of insulin ([facility]) 250.90 E11.8 V58.67 Z79.4 8. Acute on chronic diastolic CHF (congestive heart failure) ([facility]) 428.33 I50.33 428.0 9. Acute renal failure superimposed on stage 3 chronic kidney disease, unspecified acute renal failure type ([facility]) 584.9 N17.9 585.3 N18.3 10. Uncontrolled type 2 diabetes mellitus with hyperosmolarity without coma, with long-term current use of insulin ([facility]) 250.22 E11.00 V58.67 Z79.4 11. Hx pulmonary embolism V12.55 Z86.711 dabigatran (PRADAXA) 150 MG Oral Cap Creatinine clearance based on [facility] laboratory [facility] : 37, but repeat laboratory tests here it is 51.41: continue Pradaxa 150 mg bid given this and your hx of recurrent DVT and pulmonary embolisms Coordination of care. - Additional testing related to hospitilization was requested today: yes See orders. I confirmed the patient's understanding of the diagnosis and plan of care. Specific education that was provided today: Patient Instructions Your legs are swollen. Please remember to take your morning and afternoon furosemide. I sent in clindamycin for the cellulitis of your left leg. Use prunes and a stool softener for constipation. If you want to see a teacher education instructor, a kidney specialist, and I will refer you. Keep your appointment in October and we will repeat laboratory tests then. Your kidney fuction is better so continue Pradaxa 150 mg twice a day Author: Gia Carson MD 09/11/2019 12:40 documented in this encounter Plan of Treatment Date Type Specialty Care Team Description 09/21/2019 Office Visit Pulmonary Colin Bucio MD [address] [place] [address] [phone] 11/14/2019 Office Visit Family Practice Gia Carson MD [address] [place] [address] 11/30/2019 [facility] 12/07/2019 Office Visit Cardiology Hermann Valera MD [address] [place] [address] [phone] Health Maintenance Due Date Last Done Comments DTaP/Tdap/Td Vaccines (1 - 1965 Tdap) ZOSTER IMMUNIZATION SERIES 2004 (1 of 2) Diabetic Eye Exam 06/07/2018 06/07/2017 HEMOGLOBIN A1C 11/08/2019 08/08/2019, 05/12/2019, 02/07/2019, Additional history exists FOOT EXAM 11/25/2019 11/24/2018, 11/24/2018, 11/24/2018, Additional history exists LIPID DISORDER SCREENING 05/03/2020 05/03/2019, 03/22/2019, 08/15/2018, Additional history exists URINE MICROALBUMIN 05/12/2020 05/12/2019, 09/21/2018, 09/06/2017, Additional history exists DEPRESSION SCREENING 08/08/2020 08/08/2019, 08/08/2019 INFLUENZA VACCINE Completed 06/16/2019, 07/13/2018, 07/26/2017, Additional history exists HEPATITIS A IMMUNIZATION Aged Out No longer eligible SERIES based on patient's age to complete this topic HPV IMMUNIZATION SERIES Aged Out No longer eligible based on patient's age to complete this topic MENINGOCOCCAL VACCINE IMM Aged Out No longer eligible based on patient's age to complete this topic documented as of this encounter Goals Goal Patient Goal Associated Recent Patient-Stated? Author Type Problems Progress Weight CHF 20.8 No Alli, beth vs. (09/11/2019 Gia Leija, 18 mo min 11:31 AM EST) (lbs) < 5 Note: This is an individualized treatment (congestive heart failure, CHF) goal for Kinjal Jade Alcantar: Displayed above (on the right) is [...] Depression screen Depression 0 (08/08/2019 10:02 AM No Gia Carson (PHQ-9) total score < 5 EST) MD Heladio Note: This is an individualized treatment (depression) goal for Kinjal Jade Alcantar: Displayed above is your goal for a depression screening (PHQ-9) score that would indicate good control of your depression. Glycohemoglobin A1c < 8.0 Diabetes 10.9 (08/08/2019 10:55 No Gia Carson AM EST) MD Heladio Note: This is an individualized treatment (diabetes control, HgbA1C) goal for Kinjal L Ortiz: Displayed above is your progress towards your [...] and any After Visit Summaries. Consume a [id number] diet Lifestyle No Gia Carson MD Note: [...] of this encounter Implants Implanted Type Area [employer]eg[employer] Specialist Device Shelf Model / Identifier Expiration Serial / Date Lot Unify [id number] - [id number] Left: [employer], 11/17/2012 [id number] / Implanted: Qty: 1 on 08/10/2011 at [facility]. [id number] / Lead Tendril # [id number] - [id number] Left: [employer] 03/19/2014 [id number] / Implanted: Qty: 1 on 08/10/2011 at [facility] MEDICAL/ PACESETTE [id number] / R 1158t Quickflex Lead - [id number] Left: [employer], 02/17/2014 [id number] / Implanted: Qty: 1 on 08/10/[address] [facility] [id number] / Quad[employer] Mp [id number] Motion Picture Scene Builder-D - [id number] N/A: Chest [employer] , 04/19/2019 [id number] / Implanted: Qty: 1 on 06/28/2017 by Rob Blair MD at [facility] [id number] / Optisense Lead - [id number] N/A: Chest [employer], [id number] / Implanted: Qty: 1 on 06/28/2017 by Rob Blair MD at [facility] [id number] / Lda 210q/65 Optisure - [id number] N/A: Chest [employer], 2017 [id number] / Implanted: Qty: 1 on 06/28/2017 by Rob Blair MD at [facility] [id number] / Quartet 1458q-86cm - [id number] N/A: Chest [employer], 11/18/2019 [id number] / Implanted: Qty: 1 on 06/28/2017 by Rob Blair MD at [facility] [id number] / documented as of this encounter Results Not on filedocumented in this encounter Visit Diagnoses Diagnosis Pain in both hands Chronic pain syndrome Yeast infection Other and unspecified mycoses Cellulitis of left lower extremity Cellulitis and abscess of leg, except foot Hospital discharge follow-up Other follow-up examination Sciatica of right side Sciatica Type 2 diabetes mellitus with complication, with long-term current use of insulin (HCC) Acute on chronic diastolic CHF (congestive heart failure) (HCC) Acute on chronic diastolic heart failure Acute renal failure superimposed on stage 3 chronic kidney disease, unspecified acute renal failure type (HCC) Uncontrolled type 2 diabetes mellitus with hyperosmolarity without coma, with long-term current use of insulin (HCC) Hx pulmonary embolism Personal history of pulmonary embolism documented in this encounter Insurance Payer Benefit Plan / Subscriber ID Effective Dates Phone Address Type Group FIDELIS MEDICARE FIDELIS CARE xxxxxxxxxxx 2016-Present [employer] [place] Guarantor Name Account Type Relation to Date of Phone Billing Patient Address Kinjal Alcantar Personal/Family 1955 [phone] [place], [place] (Work) [address] documented as of this encounter Advance Directives Type Date Recorded 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
--- OUTSIDE RECORDS SUMMARY | 2019-09-22 15:24 | XMS REPORT | Summary of Care ---
:1955 Author Organization [facility] Address [address] [place] [address] Care Team Providers Name Role Phone Gia Carson MD Primary Care Provider Sheila Atkinson RN Unavailable Reason for Visit Reason Comments Cellulitis Pt states that she was seen by Dr Moseley on 09/11 and was put on Clindomiacib=n and is picking up the second refill on 09/17, cellulitis has gotten worse. it is now on her abdomen. started on her abdomen 09/13, it does hurt but it is more uncomfortable, pt has been taking tylenol 3 Diabetes A1C 10.9 08/08/19 Encounter Details Date Type Department Care Team Description 09/15/2019 Office Visit [facility] Kaushik Santiago, Cellulitis of left Medicine [place] lower leg (Primary Dx) [address] [place], [place] [id number] [place] [address] [phone] Allergies Active Allergy Reactions Severity Noted Date [...] as of this encounter (statuses as of 09/15/2019) Medications Medication Sig Dispensed Refills Start Date End Date Status aspirin 81 MG Oral Tab Take 1 Tab by 30 Tab 0 03/03/2016 Active EC mouth DAILY. magnesium oxide Take 250 mg by 0 Active (MAG-OX) 400 MG Oral mouth TWICE Tab DAILY. EPINEPHrine 0.3 0.3 mg by 1 Each 0 02/17/2018 Active MG/0.3ML Injection Injection route Solution ONCE NEEDED Auto-injectorIndication (severe bee s: H/O bee sting sting allergy allergy only) for up to [address] 1 Tab 25 Tab 1 07/14/2018 Active (NITROSTAT) 0.4 MG under tongue Sublingual SL Tab EVERY FIVE MINUTES NEEDED (chest pain). clotrimazole (LOTRIMIN) Apply to rash 113 g 1 09/21/2018 Active 1 % Apply externally twice daily CreamIndications: Tinea 10-14 days corporis Glucose Blood In Vitro 1 Strip by In 150 Strip 11 11/24/2018 Active StripIndications: Vitro route FOUR Uncontrolled type 2 TIMES DAILY diabetes mellitus with NEEDED (insulin hyperosmolarity without dependant coma, with long-term diabetic). DM II current use of insulin Uncontrolled, (HCC), Type 2 diabetes Ins Dep E11.9 mellitus with other specified complication (HCC) Lancets 30G Does not 1 Act by Does 150 Each 5 11/24/2018 Active apply MiscIndications: not apply route Uncontrolled type 2 THREE TIMES diabetes mellitus with DAILY. Ell.9, hyperosmolarity without insulin coma, with long-term dependent DM, 28 current use of insulin G Freestyle ([facility]), Type 2 diabetes mellitus with other specified complication ([facility]) fluticasone (FLONASE) Sargent 2 Sprays 1 Bottle 0 12/22/2018 Active 50 MCG/ACT Nasal in nose SuspensionIndications: DIRECTED. 2 Vertigo sprays in each nostril once daily Insulin Lispro (HUMALOG Inject 7-10 10 Device 11 01/09/2019 Active KWIKPEN) 100 UNIT/ML Units beneath Subcutaneous Solution the skin THREE Pen-injector TIMES DAILY WITH MEALS. Does not tolerate novolog Spironolactone 50 MG TAKE ONE TABLET 90 Tab 3 03/20/2019 Active Oral TabIndications: BY MOUTH EVERY Chronic systolic heart DAY failure ([facility]) CRESTOR 40 MG Oral Take 1 Tab by 90 Tab 3 03/22/2019 Active TabIndications: mouth DAILY. Coronary artery disease involving eastern [place] coronary artery of eastern [place] heart without angina pectoris BD PEN NEEDLE MATIAS U/F USE DIRECTED 150 Each 5 04/24/2019 Active 32G X 4 MM Does not 4 TIMES DAILY apply MiscIndications: Uncontrolled type 2 diabetes mellitus with hyperosmolarity without coma, with long-term current use of insulin ([facility]) metoprolol succinate TAKE ONE TABLET 180 Tab 3 05/29/2019 Active (TOPROL XL) 100 MG Oral BY MOUTH TWICE A TABLET SR 24 DAY HRIndications: Chronic systolic heart failure ([facility]) LANTUS SOLOSTAR 100 Inject 38-40 10 Each 11 06/16/2019 Active UNIT/ML Subcutaneous Units beneath Solution the skin DAILY Pen-injectorIndications AT 1400. PRISCILA : Type 2 diabetes mellitus with complication, with long-term current use of insulin ([facility]) albuterol HFA (VENTOLIN Take 2 Puffs by 2 Inhaler 11 06/16/2019 Active HFA) 108 (90 Base) inhalation EVERY MCG/ACT Inhalation Aero FOUR HOURS SolnIndications: NEEDED (SOB- Wheezing, Chronic Bronchitis). obstructive pulmonary disease, unspecified COPD type ([facility]) albuterol (PROVENTIL, 3 mL by 125 Vial 1 06/16/2019 Active VENTOLIN) (2.5 MG/3ML) Inhalation-SVN 0.083% Inhalation Nebu route EVERY FOUR SolnIndications: HOURS NEEDED Wheezing, Chronic (severe obstructive pulmonary wheezing). disease, unspecified COPD type (HCC) LEONTUS SOLOSTAR 100 Inject 38-40 10 Device 11 06/19/2019 Active UNIT/ML Subcutaneous Units beneath Solution Pen-injector the skin DAILY. PRISCILA, please give her 2 boxes Omeprazole delayed rel Take 20 mg by 180 Cap 3 07/11/2019 Active cap 20 MG Oral CAPSULE mouth TWICE DELAYED DAILY. New dose RELEASEIndications: Gastroesophageal reflux disease without esophagitis furosemide (LASIX) 40 Take 1 Tab by 0 08/10/2019 Active MG Oral Tab mouth DIRECTED. Take 60mg in am, 40mg in pm potassium chloride EVERY DAY 0 09/04/2019 Active (KLOR-CON) 20 MEQ Oral Tab CR acetaminophen-codeine Take 1 Tab by 30 Tab 0 09/11/2019 Active (TYLENOL #3) 300-30 MG mouth EVERY FOUR Oral TabIndications: HOURS NEEDED Pain in both hands, (severe pain). Chronic pain syndrome Max Daily Amount: 6 Tabs. Chronic pain syndrome fluconazole (DIFLUCAN) Take 1 Tab by 1 Tab 0 09/11/2019 Active 150 MG Oral mouth DAILY. TabIndications: Yeast infection Clindamycin HCl 300 MG Take 1 Cap by 21 Cap 1 09/11/2019 09/18/2019 Active Oral CapIndications: mouth THREE Cellulitis of left TIMES DAILY for lower extremity 7 days. dabigatran (PRADAXA) Take 1 Cap by 180 Cap 3 09/11/2019 Active 150 MG Oral mouth TWICE CapIndications: Hx DAILY. Cancel pulmonary embolism the 75 mg tabs sulfamethoxazole-trimet Take 1 Tab by 10 Tab 0 09/15/2019 Active hoprim (BACTRIM DS, mouth TWICE SEPTRA DS) 800-160 MG DAILY. Oral TabIndications: Cellulitis of left lower leg documented as of this encounter (statuses as of 09/15/2019) Active Problems Problem Noted Date Chronic obstructive pulmonary disease 11/24/2018 Recurrent pulmonary emboli 11/24/2018 Moderate episode of recurrent major depressive disorder 11/24/2018 Uncontrolled type 2 diabetes mellitus with hyperosmolarity without coma, 01/27 with long-term current use of insulin Mitral valve insufficiency 01/06/2018 Current use of superintendent terminal anticoagulation 01/06/2018 ICD (implantable cardioverter-defibrillator) in place 10/14/2017 Hx pulmonary embolism 12/08/2016 ANNE (obstructive sleep apnea) 08/20/2016 Overview: CPAP through [facility]- [facility] through [facility] Polyarthritis 05/04/2016 Type 2 diabetes mellitus with complication, with long-term current use of insulin Coronary artery disease 05/04/2016 H/O bee sting allergy 05/04/2016 Coronary artery disease involving eastern [place] coronary artery of eastern [place] heart 04/01 without angina pectoris Pacemaker 07/27/2011 Overview: Mfg. [employer] Model: V-193 ATLAS VR Date of Implant: OCTOBER 25, 2006 Chronic systolic heart failure 07/27/2011 Paroxysmal VT 07/27/2011 Other left bundle branch block 07/27/2011 CAD (coronary artery disease) 10/22/2006 Acute myocardial infarction, unspecified site, initial episode of care 2005 documented as of this encounter (statuses as of 09/15/2019) Immunizations Name Administration Dates Next Due Influenza [...] Sign Reading Time Taken Comments Blood Pressure 112/58 09/15/2019 8:03 AM EST Pulse 60 09/15/2019 8:03 AM EST Temperature 36.8 09/15/2019 8:03 AM EST C (98.3 F) Respiratory Rate - - Oxygen Saturation 98% 09/15/2019 8:03 AM EST Inhaled Oxygen Concentration - - Weight 108 kg (238 lb) 09/15/2019 8:03 AM EST Height 172.7 cm (5' 8") 09/15/2019 8:03 AM EST Body Mass Index 36.19 09/15/2019 8:03 AM EST documented in this encounter Patient Instructions Patient InstructionsKaushik Sanitago PA - 09/15/2019 8:00 AM ESTStop taking the clindamyin and begin the bactrim. Take one tablet twice a day. Make sure you complete your course of antibiotics. documented in this encounter Progress Notes Kaushik Santiago PA - 09/15/2019 8:00 AM EST PATIENT: Kinjal Alcantar : 1955 DATE OF SERVICE: 09/15/2019 Subjective SUBJECTIVE: Kinjal Alcantar is a 63-y.o. female who presents for re-evaluation of left lower leg cellulitis that Dr. Carson had seen on September 11, and was given clindamycin. Cellulitis developed after a hospital visit from 09/01/2016- 09/04/2019 and was given compression stockings, in which patient statesthat she "Scraped her leg" when putting the compression stockings on. After Dr. Carson's visit, patient states that the cellulitis has been worsening and is now on her abdomen. Symptoms include redness, swelling, tenderness and drainage. Patient denies fever greater than 100.5 F and chills. There is not a history of trauma to the area. Treatment to date has included antibiotics started 4 days with no relief. Past Medical History: Diagnosis Date AICD (automatic cardioverter/defibrillator) present Anticoagulated by anticoagulation treatment Eliquis as of 02/2016 Arthritis Cardiac rhythm disorder or disturbance or change Chronic systolic heart failure (HCC) 07/27/2011 Congestive heart failure (HCC) EF 20% on Echo 02/2016 Coronary artery disease Coronary artery disease involving eastern [place] coronary artery of eastern [place] heart without angina pectoris 04/01/2016 Diabetes mellitus (HCC) saw Dr. Ryan in the past, but no longer takes Keith. Essential (primary) hypertension Heart attack (HCC) 06/2006 x 2 in one week; airlifte to [place] Pacemaker Paroxysmal VT (HCC) 07/27/2011 Pulmonary hypertension (HCC) Sleep apnea 2014 Has cpap, Dr. Jimenez Family History Problem Relation Age of Onset Heart Mother Cancer Father with bone metastases, possible pancreatic Heart Sister RBBB Cancer Sister breast cancer Stroke Paternal Grandfather Heart Maternal Grandfather Heart Maternal Grandmother Diabetes Maternal Grandmother Current Outpatient Medications Medication Sig acetaminophen-codeine (TYLENOL #3) 300-30 MG Oral Tab Take 1 Tab by mouth EVERY FOUR HOURS NEEDED (severe pain). Max Daily Amount: 6 Tabs. Chronic pain syndrome albuterol (PROVENTIL, VENTOLIN) (2.5 MG/3ML) 0.083% Inhalation Nebu Soln 3 mL by Inhalation-SVN route EVERY FOUR HOURS NEEDED (severe wheezing). albuterol HFA (VENTOLIN HFA) 108 (90 Base) MCG/ACT Inhalation Aero Soln Take 2 Puffs by inhalation EVERY FOUR HOURS NEEDED (SOB- Bronchitis). aspirin 81 MG Oral Tab EC Take 1 Tab by mouth DAILY. BD PEN NEEDLE MATIAS U/F 32G X 4 MM Does not apply Misc USE DIRECTED 4 TIMES DAILY Clindamycin HCl 300 MG Oral Cap Take 1 Cap by mouth THREE TIMES DAILY for 7 days. clotrimazole (LOTRIMIN) 1 % Apply externally Cream Apply to rash twice daily 10-14 days CRESTOR 40 MG Oral Tab Take 1 Tab by mouth DAILY. dabigatran (PRADAXA) 150 MG Oral Cap Take 1 Cap by mouth TWICE DAILY. Cancel the 75 mg tabs EPINEPHrine 0.3 MG/0.3ML Injection Solution Auto-injector 0.3 mg by Injection route ONCE NEEDED (severe bee sting allergy only) for up to 1 dose. fluconazole (DIFLUCAN) 150 MG Oral Tab Take 1 Tab by mouth DAILY. fluticasone (FLONASE) 50 MCG/ACT Nasal Suspension Sargent 2 Sprays in nose DIRECTED. 2 sprays in each nostril once daily furosemide (LASIX) 40 MG Oral Tab Take 1 Tab by mouth DIRECTED. Take 60mg in am, 40mg in pm Glucose Blood In Vitro Strip 1 Strip by In Vitro route FOUR TIMES DAILY NEEDED (insulin dependant diabetic). DM II Uncontrolled, Ins Dep E11.9 Insulin Lispro (HUMALOG KWIKPEN) 100 UNIT/ML Subcutaneous Solution Pen- injector Inject 7-10 Units beneath the skin THREE TIMES DAILY WITH MEALS. Does not tolerate novolog Lancets 30G Does not apply Misc 1 Act by Does not apply route THREE TIMES DAILY. Ell.9, insulin dependent DM, 28 G, Freestyle LANTUS SOLOSTAR 100 UNIT/ML Subcutaneous Solution Pen-injector Inject 38- 40 Units beneath theskin DAILY AT 1400. PRISCILA LANTUS SOLOSTAR 100 UNIT/ML Subcutaneous Solution Pen-injector Inject 38- 40 Units beneath theskin DAILY. PRISCILA, please give her 2 boxes magnesium oxide (MAG-OX) 400 MG Oral Tab Take 250 mg by mouth TWICE DAILY. metoprolol succinate (TOPROL XL) 100 MG Oral TABLET SR 24 HR TAKE ONE TABLET BY MOUTH TWICE ADAY nitroglycerin (NITROSTAT) 0.4 MG Sublingual SL Tab Place 1 Tab under tongue EVERY FIVE MINUTES NEEDED (chest pain). Omeprazole delayed rel cap 20 MG Oral CAPSULE DELAYED RELEASE Take 20 mg by mouth TWICE DAILY. New dose potassium chloride (KLOR-CON) 20 MEQ Oral Tab CR EVERY DAY Spironolactone 50 MG Oral Tab TAKE ONE TABLET BY MOUTH EVERY DAY No current facility-administered medications for this visit. Allergies Allergen Reactions Altace [Fd&C Blue #2-Ramipril] [...] file Gets together: Not on file Attends pentecostalism service: Not on file Active member of [...] Narrative Lives alone, single. Children live in [place]. 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 REVIEW OF SYSTEMS: Review of Systems Constitutional: Negative for chills, fever and malaise/fatigue. Respiratory: Negative for cough and shortness of breath. Cardiovascular: Negative for chest pain and palpitations. Gastrointestinal: Negative for diarrhea, nausea and vomiting. Genitourinary: Negative for dysuria and urgency. Musculoskeletal: Negative for myalgias. Skin: Negative for itching. Neurological: Negative for dizziness and headaches. Objective OBJECTIVE: BP 112/58 (BP Location: Right arm, Patient Position: Sitting) | Pulse 60 | Temp 98.3 F (36.8 C) (Tympanic) | Ht 5' 8" (1.727 m) | Wt 238 lb (108 kg) | SpO2 98% | BMI 36.19 kg/m Physical Exam Constitutional: General: She is not in acute distress. Appearance: Normal appearance. HENT: Head: Normocephalic and atraumatic. Cardiovascular: Comments: Pedal pulses +2 bilaterally. Musculoskeletal: Right lower leg: No edema. Comments: +1 edema in the left foot. Skin: General: Skin is warm and dry. Comments: Mildly swollen, erythematous region noted over the anterior surface of her distal tibiawithout signs of tracking up the leg or down the foot. Some discharge noted at the site but appears clear. Similar inflammation noted below her umbilicus without discharge. Neurological: Mental Status: She is alert. ASSESSMENT: ICD-9-CM ICD-10-CM 1. Cellulitis of left lower leg 682.6 L03.116 sulfamethoxazole-trimethoprim ( BACTRIM DS, SEPTRA DS) 800-160 MG Oral Tab Based on the failure of clindamycin to treat the infection, I am changing the prescription to Bactrim as a broad-spectrum coverage, which will also treat any potential MRSA; especially given the abrasion developed at a hospital facility. Follow up as needed. Author: AP Blake 09/15/2019 08:09 documented in this encounter Plan of Treatment Date Type Specialty Care Team Description 09/21/2019 Office Visit Pulmonary Colin Bucio MD [address] [place] [address] [phone] 11/14/2019 Office Visit Family Practice Gia Carson MD [address] [place] [address] [phone] 11/30/2019 [facility] 12/07/2019 Office Visit Cardiology Hermann Valera MD [address] [place] [address] [phone] Health Maintenance Due Date Last Done Comments [...] Patient-Stated? Author Type Problems Progress Weight CHF 18 No Alli, beth vs. (09/15/2019 Gia Leija, 18 mo min 8:03 AM EST) (lbs) < 5 Note: This [...] and any After Visit Summaries. Consume a nd-hwlln-eilo diet Lifestyle No Gia Carson MD Note: [...] of this encounter Implants Implanted Type Area Business Services Representative Device Shelf Model / Identifier Expiration Serial / Date Lot Unify [id number] - [id number] Left: [employer], 11/17/2012 [id number] / Implanted: Qty: 1 on 08/10/2011 at [facility]. [id number] / Lead Tendril # [id number]-52 - [id number] Left: [facility] [employer] 03/19/2014 [id number] / Implanted: Qty: 1 on 08/10/2011 at [facility] MEDICAL/ [place] [id number] / R 1158t Quickflex Lead - [id number] Left: [facility], 02/17/2014 [id number] / Implanted: Qty: 1 on 08/10/2011 at [facility] [id number] / [employer] Mp [id number] Collections Officer-D - [id number] N/A: Chest [facility] , 04/19/2019 [id number] / Implanted: Qty: 1 on 06/28/2017 by Rob Sigala MD at [facility] [id number] / Optisense Lead - [id number] N/A: Chest [facility] [employer], [id number] / Implanted: Qty: 1 on 06/28/2017 by Rob Sigala MD at [facility] [id number] / Lda 210q/65 Optisure - [id number] N/A: Chest [facility] [employer], 2017 [id number] / Implanted: Qty: 1 on 06/28/2017 by Rob Sigala MD at [facility] [id number] / Quartet 1458q-86cm - [id number] N/A: Chest [facility] [employer], 11/18/2019 [id number] / Implanted: Qty: 1 on 06/28/2017 by Rob Sigala MD at [facility] [id number] / documented as of this encounter Results Not on filedocumented in this encounter Visit Diagnoses Diagnosis Cellulitis of left lower leg Cellulitis and abscess of leg, except foot documented in this encounter Insurance Payer Benefit Plan / Subscriber ID Effective Dates Phone Address Type Group FIDELIS MEDICARE FIDELIS CARE xxxxxxxxxxx 2016-Present [employer] [employer] [place] Guarantor Name Account Type Relation to Date of Phone Billing Patient Address Kinjal Alcantar Personal/Family 1955 [phone] [place], [place] (Work) [address] documented as of this encounter Advance Directives Type Date Recorded 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
--- OUTSIDE RECORDS SUMMARY | 2019-09-22 15:24 | XMS REPORT | Summary of Care ---
:1955 Author Organization [facility] Address [address] [place] [address] Care Team Providers Name Role Phone Gia Carson MD Primary Care Provider Sheila Atkinson RN Unavailable Reason for Referral Refer to Department Only (Routine) Status Reason Specialty Diagnoses / Referred By Referred To Procedures Contact Contact Pending Review CARDIOLOGY Diagnoses Chronic systolic heart failure (HCC) GAIL Valera MD HOSP. [address] Phone: [phone] Scheduling Instructions Please refer patient to the Advanced Heart Failure clinic at [facility]. Reason for Visit Reason Comments Hospital F/U Pt. reports [place] [facility] [place]. Reports feeling a lot better. Encounter Details Date Type Department Care Team Description 09/06/2019 Office Visit Kwasi Valera Chronic systolic heart failure (HCC) (Primary Dx); Cardiology MD Hermann Coronary artery disease involving [place] coronary artery of [place] heart without angina pectoris; [address] [facility] Pulmonary hypertension (HCC); [place] [address] [place] [address] Ischemic cardiomyopathy; [phone] Non-rheumatic mitral regurgitation Allergies Active Allergy Reactions [...] as of this encounter (statuses as of 09/06/2019) Medications Medication Sig Dispensed Refills Start Date [...] II current use of insulin Uncontrolled, Ins ([facility]), Type 2 diabetes Dep E11.9 mellitus with other specified complication ([facility]) Lancets 30G Does not 1 Act by Does not 150 Each 5 11/24/2018 Active apply MiscIndications: apply route THREE Uncontrolled type 2 TIMES DAILY. diabetes mellitus with Ell.9, insulin hyperosmolarity without dependent DM, 28 coma, with long-term G, Freestyle current use of insulin ([facility]), Type 2 diabetes mellitus with other specified complication ([facility]) potassium chloride Take 1 Tab by 180 Tab 3 11/24/2018 Active (K-TAB) 10 MEQ Oral Tab mouth DAILY. CRIndications: Chronic systolic heart failure ([facility]) fluticasone (FLONASE) [place] 2 Sprays in 1 Bottle 0 12/22/2018 [...] MOUTH EVERY Chronic systolic heart DAY failure ([facility]) fluconazole (DIFLUCAN) Take 1 Tab by 1 Tab 0 03/22/2019 Active 150 MG Oral mouth DAILY. TabIndications: Cellulitis of right lower extremity CRESTOR 40 MG Oral Take 1 Tab by 90 Tab 3 03/22/2019 Active TabIndications: mouth DAILY. Coronary artery disease involving [place] coronary artery of [place] heart without angina pectoris BD PEN NEEDLE MATIAS U/F USE DIRECTED 4 150 Each 5 04/24/2019 Active 32G X 4 MM Does not TIMES DAILY apply MiscIndications: Uncontrolled type 2 diabetes mellitus with hyperosmolarity without coma, with long-term current use of insulin ([facility]) metoprolol succinate TAKE ONE TABLET 180 Tab 3 05/29/2019 Active (TOPROL XL) 100 MG Oral BY MOUTH TWICE A TABLET SR 24 DAY HRIndications: Chronic systolic heart failure (HCC) LANTUS SOLOSTAR [...] dose RELEASEIndications: Gastroesophageal reflux disease without esophagitis acetaminophen-codeine Take 1 Tab by 30 Tab 0 08/08/2019 Active (TYLENOL #3) 300-30 MG mouth EVERY FOUR Oral TabIndications: HOURS NEEDED Pain in both hands, (severe pain). Chronic pain syndrome Max Daily Amount: 6 Tabs. Chronic pain syndrome furosemide (LASIX) 40 Take 1 Tab by 0 08/10/2019 Active MG Oral Tab mouth DIRECTED. Take 60mg in am, 40mg in pm Hospital, Clinic, or Other Ordered Dose Route Frequency Start Date End Date Status Facility Administered Medication albuterol (PROVENTIL, 2.5 mg IN-SVN NOW 06/26/2019 Active VENTOLIN) nebulizer solution (RT ADMIN) (5 MG/ML) 0.5%Indications: Wheezing documented as of this encounter (statuses as of 09/06/2019) Active Problems Problem Noted Date Chronic obstructive pulmonary disease 11/24/2018 Recurrent pulmonary emboli 11/24/2018 Moderate episode of recurrent major depressive disorder 11/24/2018 Uncontrolled type 2 diabetes mellitus with hyperosmolarity without coma, 01/27 with long-term current use of insulin Mitral valve insufficiency 01/06/2018 Current use of moth exterminator anticoagulation 01/06/2018 ICD (implantable cardioverter-defibrillator) in place 10/14/2017 Hx pulmonary embolism 12/08/2016 ANNE (obstructive sleep apnea) 08/20/2016 Overview: [facility]AP through [facility] [place] [facility] Polyarthritis 05/04/2016 Type 2 diabetes mellitus with complication, with long-term current use of insulin Coronary artery disease 05/04/2016 H/O bee sting allergy 05/04/2016 Coronary artery disease involving [place] coronary artery of [place] heart 04/01 without angina pectoris Pacemaker 07/27/2011 Overview: Mfg. [employer] Model: [id number] ATLAS VR Date of Implant: OCTOBER 25, 2006 Chronic systolic heart failure 07/27/2011 Paroxysmal VT 07/27/2011 Other left bundle branch block 07/27/2011 CAD (coronary artery disease) 10/22/2006 Acute myocardial infarction, unspecified site, initial episode of care 2005 documented as of this encounter (statuses as of 09/06/2019) Immunizations Name Administration Dates Next Due Influenza [...] Sign Reading Time Taken Comments Blood Pressure 118/60 09/06/2019 8:05 AM EST Pulse 72 09/06/2019 8:05 AM EST Temperature - - Respiratory Rate - - Oxygen Saturation - - Inhaled Oxygen Concentration - - Weight 106.6 kg (235 lb) 09/06/2019 8:05 AM EST Height 172.7 cm (5' 8") 09/06/2019 8:05 AM EST Body Mass Index 35.73 09/06/2019 8:05 AM EST documented in this encounter Patient Instructions Patient InstructionsHermann Valera MD - 09/06/2019 8:00 AM EST No medication changes today. Continue to work on a low sodium diet and monitor your weights at home. Get your bloodwork checked today. As we discussed, I've referred you to the [facility] Advanced Heart Failure program for further evaluation. Follow up with me in 3 months or sooner if needed. documented in this encounter Progress Notes Hermann Valera MD - 09/06/2019 8:00 AM EST [place] [facility] Note Patient: Kinjal Alcantar Date of : 1955 Date of Service: 09/06/2019 REFERRING PRACTITIONER: Gia Carson PRIMARY CARE PROVIDER: Gia Carson Chief Complaint: Chief Complaint Patient presents with Hospital F/U Pt. reports discharged [place] [facility] [place]. Reports feeling a lot better. History of Present Illness: We had the pleasure of seeing Kinjal Alcantar today at [facility]. She is a 63-y.o. female with severe ischemic cardiomyopathy s/p BiV ICD, Diabetes Mellitus Type II, Two Vessel CAD s/p PCI to LAD 2006 and SUPERVISOR POLISHING of the RCA, Obstructive Sleep Apnea, COPD , HTN, and SVT. Also has moderate functional MR and elevated PASP by echo as well as prior bilateral LE DVTs s/p a course of Eliquis with recurrent DVTs 2016 now on indefinite OAC therapy with Pradaxa. Left and right heart cath 2016 showed no new coronary lesions and moderate pulmonary HTN with elevated PVR. She then had inappropriate ICD shocks 06/2017 d/t Riata lead malfunctioning and had lead extractions and [employer] BiV ICD replacement by Dr. Blair. Ms. Alcantar returns to cardiology clinic today for routine 2 month f/u. Since her last visit with me she reports that she was recently hospitalized again at [facility] for increased dyspnea, CP, and worsened LE edema. She received IV diuretics and had improvement in her symptoms but her creatinine had increased to ~2.5 on the day of discharge (was 1.3 in our system on 08/08/19). An echo done during thatadmission showed a continued very low LVEF of 15-20%. At this point, her breathing feels better and her CP is gone. She does feel quite fatigued. Weightat home has been gradually going down and she's urinating well on just 40mg once daily of Lasix. Iswearing compression stockings and her LE edema is also improving. Continues to have some orthostatic lightheadedness but no syncope. No sig orthopnea or palpitations. Patient Active Problem List Diagnosis Acute myocardial infarction, unspecified site, initial episode of care CAD (coronary artery disease) Pacemaker Chronic systolic heart failure (HCC) Paroxysmal VT (HCC) Other left bundle branch block Coronary artery disease involving [place] coronary artery of [place] heart without angina pectoris Polyarthritis Type 2 diabetes mellitus with complication, with long-term current use of insulin (HCC) Coronary artery disease H/O bee sting allergy ANNE (obstructive sleep apnea) Hx pulmonary embolism ICD (implantable cardioverter-defibrillator) in place Mitral valve insufficiency Current use of prison anticoagulation Uncontrolled type 2 diabetes mellitus with [...] Coronary artery disease Coronary artery disease involving [place] coronary artery of [place] heart without angina pectoris 04/01/2016 Diabetes mellitus (HCC) saw Dr. Ryan in the past, but no longer takes [place]. Essential (primary) hypertension Heart attack (HCC) 06/2006 x 2 in one week; airlifte to [place] Pacemaker Paroxysmal VT (HCC) 07/27/2011 Pulmonary hypertension (HCC) Sleep apnea 2014 Has cpap, Dr. Jimenez Past Surgical History: Procedure Laterality Date CATHETERIZATION HEART RIGHT AND LEFT Right 05/18/2017 Procedure: CATHETERIZATION HEART RIGHT AND LEFT; Surgeon: Francisco Murry MD ; Location: [facility] CCL SECTION NOS x 2 COLONOSCOPY years ago, declines repeat INSERTION BI-VENTRICULAR ICD 08/10/2011 Procedure:INSERTION BI-VENTRICULAR ICD; Surgeon:ROB BLAIR; Location:[facility]; Laterality:N/A;UPGRADE TO BI-V ICD LT NH APPENDECTOMY NH INS NEW/RPLCMT PRM PACEMAKR W/TRANS ELTRD ATRIAL NH TOTAL ABDOM HYSTERECTOMY TONSILLECTOMY Allergies Allergen Reactions [...] file Gets together: Not on file Attends jehovah's witness service: Not on file Active member of [...] Narrative Lives alone, single. Children live in [place]. 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 Review of Systems - Negative except as noted in HPI. Physical Exam: Vitals: 09/06/19 0805 BP: 118/60 Pulse: 72 Weight: 235 lb (106.6 kg) Height: 5' 8" (1.727 m) Body mass index is 35.73 kg/m. General: Obese, alert 63-y.o. female in NAD HEENT: anicteric, MMM, no E/E OP, conj pink Neck: JVP difficult to see d/t body habitus, but appears to be approx 6-7 cm above the RA with a slightly prominent V wave. No carotid bruits or LAD CV: RRR, normal s1/s2, 2/6 [...] Lab Results Component Value Date NA 139 08/08/2019 K 3.8 08/08/2019 CL 98 08/08/2019 CO2 30 08/08/2019 GLUCOSE 231 (H) 08/08/2019 BUN 27 (H) 08/08/2019 CREATININE 1.3 (H) 08/08/2019 CALCIUM 8.8 08/08/2019 TP 7.3 08/08/2019 ALBUMIN 3.6 08/08/2019 AST 36 08/08/2019 ALT 26 08/08/2019 ALK 169 (H) 08/08/2019 TBILI 1.0 08/08/2019 Lab Results Component Value Date NT PRO BNP 5,850 (H) 05/03/2019 Lab Results Component Value Date CHOL 87 08/15/2018 TRIG 78 08/15/2018 HDL 22 (L) 08/15/2018 LDL 49 08/15/2018 LDLHDLRATIO 2.2 08/15/2018 CHOLHDLRATIO 4.0 08/15/2018 Cardiac Studies: [place]TE [place] [facility] [place]/03[place]: -Severely dilated LV with LVEF 15-20% and Grade III diastolic dysfunction -Moderately dilated RV -Biatrial enlargement -Mild to moderate MR -Moderate to severe TR. ICD Interrogation 07/31/19: This visit was performed remotely. Atrial and bi-ventricular pacing with capture and sensing with both leads was seen at the time of this transmission. There have been no episodes of atrial fibrillation or ventricular tachycardia. Heart rates range between 60-80 bpm the majority of the time. CorVue Impedance monitoring shows a decrease in thoracic impedance measurements for 12 days between April and May and 7 days in June. This would indicate that possible fluid accumulation was occurring at that time. Implantable Cardioverter Defibrillator function appears normal. TTE at [facility] 11/21/2018: TTE 10/06/18: FINAL IMPRESSION: Technically difficult study with limited acoustic windows and very limited endocardial visualization. Severely dilated LV with moderate left atrial enlargement. Severely reduced LV systolic function with estimated LVEF 15-20%. Moderate right heart enlargement with reduced RV contractility. Moderate mitral and tricuspid regurgitation. Moderate elevation in estimated pulmonary arterial systolic pressure. No pericardial effusion. Compared to prior [facility] echo report 11/2017, no significant changes [...] 4. Normal cardiac output/index. Regadenoson SPECT at [facility] 05/06/17: -Large fixed defect involving the [...] tiny PFO NM Stress: 02/28/2016 Report from [facility] Decreased LVEF with large fixed defect of the apex consistent with infarct with marginal ischemia Distal anterior and inferior kay with marginal reversibility Left Heart Cath [facility] 2013: Repeat catheterization showing no significant stenosis in LAD. First septal large bifurcating vesselwith ostial 65%. Circumflex large and codominant with collaterals to the right. Consideration if continued to have symptoms to attempt retrograde approach to SUPERVISOR POLISHING. Assessment & Plan: Kinjal Alcantar is a 63-y.o. female with severe ischemic cardiomyopathy s/p BiV ICD, Diabetes Mellitus Type II, Two Vessel CAD s/p PCI to LAD 2005 and SUPERVISOR POLISHING of the RCA, Obstructive Sleep Apnea, COPD, [...] Chronic systolic heart failure (HCC) 428.22 I50.22 REFER TO CARDIOLOGY ( GENERAL) 2. Coronary artery disease involving [place] coronary artery of [place] heart without angina pectoris 414.01 I25.10 3. Pulmonary hypertension (HCC) 416.8 I27.20 4. Ischemic cardiomyopathy 414.8 I25.5 5. Non-rheumatic mitral regurgitation 424.0 I34.0 1. Ischemic Cardiomyopathy with NYHA Class II-III symptoms: Pt remains fairly euvolemic today. Recommendations are as follows: Most recent LV function: 15-20% (assessed on 09/03/19 by [facility] echo). Beta-kem: Cont Toprol XL 100mg BID. ALEX-inhibitor or ARB: Has anaphylaxis to this med class. Could consider hydralazine/Imdur but she already has some orthostasis and has had some lowish BPs and I'm not sure how [...] for now she's back on Lasix 40mg QD to BID and doing OK. Devices: Has a [employer] BiV ICD; will cont with remote interrogations. Other: Over the past 2 years she has had more frequent hospitalizations for CHF exacerbations and has also had a gradual worsening of renal function. I continue to feel that it would be appropriate to get her plugged in with the Advanced HF clinic in [place], and I'd be interested to see whether they feel a repeat RHC and/or CPET may be useful in her case. I had initially referred her about ayear ago but her insurance was an issue. At this point, I've been told by our primary care physician thather insurance now allows her to be seen by them , so I'm referring her back to [facility] to get plugged inwith them. Checking labs today as well. 2. Coronary Artery Disease, s/p PCI: No current anginal symptoms. I recommend the following medicalregimen: Antiplatelets: Continue aspirin 81 mg daily for life. She's on concurrent Pradaxa for DVTs but had breakthrough VTE on Eliquis alone previously so we've left her on the aspirin. Statin: Cont Crestor 40mg daily. Direct LDL was great at 41 in 04/2019. Beta-kem: Toprol XL as above. Anti-anginals: Not needed. Did not tolerate Imdur previously. 3. Moderate Pulmonary HTN: Multifactorial Group 2 and Group 3 pulm HTN, the latter from ANNE and somelung disease. 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 I have offered her an empiric trial of a PDE inhibitor such as sildenafil in the past, but she hasn't wanted to try that (that may also worsen her orthostasis). Thank you for allowing me to participate in the care of Kinjal Alcantar. We will plan on f/u in ouroffice in ~3 months (sometime after her [facility] visit) or sooner prn. If you have any questions or concerns please feel free to call our office at . Hermann Valera MD, 09/06/2019, 08:18 This note was created using my previous note as a template; changes were made where appropriate, andall information in the current note is up to date to the best of my knowledge.Electronically signed by Hermann Valera MD at 2018 1:13 PM ESTdocumented in this encounter Plan of Treatment Date Type Specialty Care Team Description 09/11/2019 Office Visit Family [facility] Gia Carson MD [address] [place] [address] [phone] 09/21/2019 Office Visit Pulmonary Colin Buc[place] [address] [phone] 11/14/2019 Office Visit Family [facility] Gia Carson MD [address] [place] [address] [phone] 11/30/2019 [facility] Name Type Priority Associated Diagnoses Date/Time COMPREHENSIVE METABOLIC Lab Routine Chronic systolic heart 09/06/2019 8: 41 AM PANEL failure (HCC) EST NT PROBNP Lab Routine Chronic systolic heart 09/06/2019 8:41 AM failure (HCC) EST Name Type Priority Associated Diagnoses Order Schedule COMPREHENSIVE METABOLIC Lab Routine Chronic systolic heart Expected: 2018 PANEL failure (HCC) (Approximate), Expires: 09/06/2020 NT PROBNP Lab Routine Chronic systolic heart Expected: 09/06/2019 failure (HCC) (Approximate), Expires: 09/06/2020 Name Type Priority Associated Diagnoses Order Schedule REFER TO CARDIOLOGY Referral Routine Chronic systolic heart Expected: 09/06, (GENERAL) failure (HCC) Expires: 09/06/2020 Health Maintenance Due Date Last Done Comments [...] Weight CHF 15 No [place], increase vs. (09/06/2019 Gia Leija, 18 mo min 8:05 AM EST) (lbs) < 5 Note: This [...] Gia Carson (PHQ-9) total score < 5 [place]) MD [...] and any After Visit Summaries. Consume a [id number] diet Lifestyle No Gia Carson MD Note: [...] is an individualized self-management goal for Kinjal Jade Alcantar: Please check your weight daily. Refer to the accompanying CHF treatment goal and call your doctor immediately for further instructions on how to respond to unexpected weight gain. documented as of this encounter Implants Implanted Type Area Insulation Sprayer Device Shelf Model / Identifier Expiration Serial / Date Lot Unify [id number] - [id number] Left: [employer], 11/17/2012 [id number] / Implanted: Qty: 1 on 08/10/2011 at [facility]. [id number] / Lead Tendril # [id number] - [id number] Left: [employer] 03/19/2014 [id number] / Implanted: Qty: 1 on 08/10/2011 at [facility]/ PACESETTE [id number] / R 1158t Quickflex Lead - [id number] Left: [employer], 02/17/2014 [id number] / Implanted: Qty: 1 on 08/10/2011 at [facility]. [id number] / Riccia Nas Mp [id number] Pot Runner-D - [id number] N/A: Chest [employer] , 04/19/2019 [id number] / Implanted: Qty: 1 on 06/28/2017 by Rob Blair MD at [facility] [id number] / Optisense Lead - [id number] N/A: Chest [employer], [id number] / Implanted: Qty: 1 on 06/28/2017 by Rob Blair MD at [facility]. [id number] / Lda 210q/65 Optisure - [id number] N/A: Chest [employer], 2017 [id number] / Implanted: Qty: 1 on 06/28/2017 by Rob Blair MD at [facility]. [id number] / Quartet 1458q-86cm - [id number] N/A: Chest [employer], 11/18/2019 [id number] / Implanted: Qty: 1 on 06/28/2017 by Rob Blair MD at [facility] [id number] / documented as of this encounter Results Not on filedocumented in this encounter Visit Diagnoses Diagnosis Chronic systolic heart failure (HCC) Chronic systolic heart failure Coronary artery disease involving [place] coronary artery of [place] heart without angina pectoris Pulmonary hypertension (HCC) Other chronic pulmonary heart diseases Ischemic cardiomyopathy Other specified forms of chronic ischemic heart disease Non-rheumatic mitral regurgitation Mitral valve disorders documented in this encounter Insurance Payer Benefit Plan / Subscriber ID Effective Dates Phone Address Type Group [employer]ARE [employer] xxxxxxxxxxx 2016-Present [employer] [place] [employer] Guarantor Name Account Type Relation to Date of Phone Billing Patient Address Kinjal Alcantar Personal/Family 1955 [phone]) [address] [place], [place] ([place]) [address] documented as of this encounter Advance Directives Type Date Recorded Patient Data Processing Control Clerk Explanation Advance Directives 12/16/2018 9:01 AM Health Care Proxy VANNESSA-WILLIAM 12/16/2018 9:01 AM WILLIAM REDDY Dept of Health
--- OUTSIDE RECORDS SUMMARY | 2019-09-22 15:24 | XMS REPORT | Continuity of Care Document ---
:1955 External Reference #:[id number] Author Name Serenity Art M.D. (transmitted by agent of provider Prema Baumann) Address [address] [place] [id number] Care Team Providers Name Role Phone Serenity Art MD [facility] - Care Team Information Angio Technologist [phone] Cardiovascular Disease Rolando Ryan MD - Endocrinology, Care Team Information Angio Technologist Diabetes & Metabolism Problems Active Problems Provider Date Automatic implantable cardiac Serenity Art M.D. Onset: 06/10/2011 defibrillator in situ Paroxysmal ventricular tachycardia Serenity Art M.D. Onset: 2010 Coronary arteriosclerosis Serenity Art M.D. Onset: 06/10/2011 Old myocardial infarction Serenity Art M.D. Onset: 06/10/2011 Benign essential hypertension Serenity Art M.D. Onset: 06/10/2011 Type II diabetes mellitus uncontrolled Aleksander Long M.D.,FACP Onset: Electrocardiogram abnormal Serenity Art M.D. Onset: 09/29/2011 Disorder of teeth AND/OR supporting Filemon Malloy M.D. Onset: 10/28/2011 structures Mixed hyperlipidemia Kinjal Hernandez, N.PKamilah Onset: 05/02/2012 Depressive disorder Chi Valladares.Tali Onset: 06/30/2012 Multiple joint pain Todd Bose M.D. Onset: 02/14/2013 Primary cardiomyopathy Venkat Mccann.D. Onset: 02/27/2013 Chronic ischemic heart disease Serenity Art M.D. Onset: 02/27/2013 Coronary arteriosclerosis Serenity Art M.D. Onset: 02/27/2013 Edema Serenity Art M.D. Onset: 02/27/2013 Pulmonary emphysema Virginia Bautista MD Onset: 11/22/2014 Obstructive sleep apnea syndrome Virginia Bautista MD Onset: 01/07/2015 Morbid obesity Virginia Bautista MD Onset: 05/16/2015 Scar emphysema Virginia Bautista MD Onset: 07/16/2015 Seronegative rheumatoid arthritis Aleksander Long M.D.,FACP Onset: 2015 Note: DENIZ positive, RF negative Deep venous thrombosis of lower extremity Leonel Scott NP Onset: 02/26/2016 Note: bilat by u/s 02/26/16 Social History Type Date Description Comments Sex Unknown Tobacco Use Start: Unknown End: Former Cigarette Smoker Unknown ETOH Use 10/18/2015 Denies alcohol use Tobacco Use Start: Unknown End: Patient is a former Quit 2006 Never Unknown smoker smoked more than a pack per day but smoked off and on. Recreational Drug Use Denies Drug Use Exercise Type/Frequency Does not exercise Allergies, Adverse Reactions, Alerts Active Allergies Reaction Severity Comments Date Ampicillin angioedema 07/19/2006 kefzol angioedema 07/19/2006 Darvon GI upset 07/19/2006 Demerol GI upset 07/19/2006 Morphine GI upset 07/19/2006 Nickel 08/30/2006 Zofran caused chest pain 11/22/2008 Altace "throat closing " 08/07/2009 Cozaar eyes swelling, 08/12/2009 hands itching Bee Venom 06/11/2011 Latex 06/11/2011 Januvia muscle cramps in 09/29/2011 legs, rash Metformin hands/feet 09/29/2011 contorted, pain Victoza chest pain 09/29/2011 Iodinated Diagnostic itch 06/30/2012 Agents Pertussis Immune severe arm swelling 07/08/2012 Globulin Pertussis Vaccines severe arm swelling 07/08/2012 Atorvastatin Cramps in legs/feet 10/06/2013 Glyburide ITCHING,INTENSE 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 03/02/2016 81mg Tablets day Cornelius Art Fluticasone Propionate 2 sprays each 16gm J20.9 Leonel Scott, 02/04/2016 nostril daily the WIGS SALESPERSON 50mcg/Act Suspension next 3-4 weeks Metronidazole 5 grams once 25g N76.0 Leonel Scott, 01/22/2016 0.75% Gel daily vaginally WIGS SALESPERSON x's 5 days Lipitor 1 by mouth at 90tabs Qutaybeh S. 12/26/2015 40mg Tablets bedtime Cornelius Art Amlodipine Besylate 1 by mouth every 90tabs Qutaybeh S. 12/05/2015 2.5mg day Cornelius Art Tablets Nitrostat one sl q5min up 25tabs Qutaybeh S. 07/17/2015 0.4mg Tablets to 3 doses as Cornelius Art Sub needed Acetaminophen-Codeine 1 tablet by mouth 30tabs M25.512 Leonel Scott, 05/08 #3 q6-8hrs as needed WIGS SALESPERSON 300-30mg Tablets pain Albuterol Sulfate 1 unit nebl every 2units Virginia Bautista, 01/08/2015 6 hours as needed MD (2.5mg/3ML) 0.083% Nebulizer Lasix 1 tab every am., 90tabs Qutaybeh S. 11/16/2014 40mg Tablets 1/2 tab at Cornelius Art bedtime Digoxin 1 pill every 45tabs Qutaybeh S. 06/15/2014 125mcg Tablets other night. Cornelius Art Potassium Chloride ER 3 by mouth every 270tabs Qutaybeh S. 05/22/2014 day Cornelius Art 10Meq Tablets ER Metoprolol Tartrate 1 by mouth twice 180tabs Qutaybeh S. 05/25/2013 50mg a day Cornelius Art Tablets Epipen 2-Saul sc prn 1units Leonel Scott, 06/11/2011 0.3mg/0.3ML WIGS SALESPERSON Solution Auto-Inject Pen [place] 31G X 6mm qd 30units 250.02 Aleksander Armenta 06/11/2011 31G Cornelius Long,FACP X 6 mm Misc Spironolactone 1 by mouth every 90tabs Qutaybeh S. 07/19/2006 25mg day Cornelius Art Tablets Glyburide 2 tab bid 60tabs E11.59 Unknown 5mg Tablets Magnesium-Oxide 1 tablet twice a 90tabs Unknown day 400(241.3mg) mg Tablets Medications Administered in Office Medication SIG Qnty Indications Ordering Provider Date Celestone 3 mg and 3mg Arlette Watson, 05/17/2012 Injection M.Kathi Celestone 3 mg and 3mg Arlette Watson, 05/17/2012 Injection Cornelius Celestone 3 mg and 3mg GUTIERREZ Roger 05/17/2012 Injection Immunizations CPT Code Status Date Vaccine Lot # [id number] Given 06/29/2015 Flu Vaccine Split Virus Preservative Free For Indiv [id number] Older [id number] Given 07/30/2013 Pneumonia Vaccine [id number] Given 06/30/2012 Fluzone Vaccine [id number] Given 06/30/2012 Tdap - Tetanus/Diptheria/Acellular Pertussis [id number] Given 06/11/2011 Fluzone Vaccine [id number] Vital Signs Date Vital Result Comment 02/04/2016 7:48am Height 68 inches 5'8" Weight 237.00 lb Heart Rate 66 /min BP Systolic Sitting 112 mmHg BP Diastolic Sitting 62 mmHg Body Temperature 97.8 F O2 % BldC Oximetry 98 % room air BMI (Body Mass Index) 36.0 kg/m2 01/31/2016 7:57am Height 68 inches 5'8" Weight 237.00 lb Heart Rate 77 /min BP Systolic Sitting 100 mmHg BP Diastolic Sitting 70 mmHg Body Temperature 98.0 F O2 % BldC Oximetry 94 % BMI (Body Mass Index) 36.0 kg/m2 Results Description No Information Available Procedures Date Code Description Status 05/08/2019 40319 EKG, Interpretation Only Completed 02/18/2014 269130422 Diabetic Retinal Eye Exam Completed 03/03/2011 09138064 Colonoscopy Completed Medical Devices Description No Information Available Encounters Type Date Location Provider Dx Diagnosis Office Visit 05/08/2019 [facility] Sammy Masterson MD R60.9 Edema, unspecified 9:[facility]a [facility] L53.9 Erythematous condition, unspecified R06.02 Shortness of breath E78.5 Hyperlipidemia, unspecified I48.91 Unspecified atrial fibrillation E11.9 Type 2 diabetes mellitus without complications Z86.718 Personal history of other venous thrombosis and embolism Office Visit 05/07/2019 9:35a [facility] Prema R06.09 Other forms of [facility] ELINA Shah dyspnea Hospitalists L53.9 Erythematous condition, unspecified R82.90 Unspecified abnormal findings in urine R11.0 Nausea E11.9 Type 2 diabetes mellitus without complications I42.9 Cardiomyopathy, unspecified I48.91 Unspecified atrial fibrillation G47.33 Obstructive sleep apnea (adult) (pediatric) I25.10 Athscl heart disease of [place] coronary artery w/o ang pctrs Assessments Date Code Description Provider 05/08/2019 R94.31 Abnormal electrocardiogram [ECG] [EKG] Madhav Martinez M.D. 05/08/2019 R60.9 Edema, unspecified Sammy Masterson MD 05/08/2019 L53.9 Erythematous condition, unspecified Sammy Masterson MD 05/08/2019 R06.02 Shortness of breath Sammy Masterson MD 05/08/2019 E78.5 Hyperlipidemia, unspecified Sammy Masterson MD 05/08/2019 I48.91 Unspecified atrial fibrillation Sammy Masterson MD 05/08/2019 E11.9 Type 2 diabetes mellitus without Sammy Masterson MD complications 05/08/2019 Z86.718 Personal history of other venous thrombosis Sammy Masterson MD and embolism 05/07/2019 R06.09 Other forms of dyspnea Prema Shah PA-C 05/07/2019 L53.9 Erythematous condition, unspecified Prema Shah PA-C 05/07/2019 R82.90 Unspecified abnormal findings in urine AP Saldivar -C 05/07/2019 R11.0 Nausea AP Saldivar-C 05/07/2019 E11.9 Type 2 diabetes mellitus without PA Saldivar-C complications 05/07/2019 I42.9 Cardiomyopathy, unspecified AP Saldivar-C 05/07/2019 I48.91 Unspecified atrial fibrillation AP Saldivar-C 05/07/2019 G47.33 Obstructive sleep apnea (adult) (pediatric) AP Hardy-C 05/07/2019 I25.10 Atherosclerotic heart disease of [place] Prema ELINA Shah coronary artery without angina pectoris Plan of Treatment 02/04/2016 - Leonel Scott, NPJ20.9 Acute bronchitis, unspecifiedNew Medication: Fluticasone Propionate 50 mcg/Act - 2 sprays each nostril daily the next 3-4 weeksComments:Improvingstop using Duoneb, use ProAir as needed. Deep breath and cough often while awake.I want you to start a corticosteroid for your sinus sxRest.get adequate fluid intake. Clear fluids best.G47.33 Obstructive sleep apnea (adult) (pediatric)Comments:I don't advise you stop using your cpap.But if you feel the need to not use it. I would resume use once you are feeling better! Functional Status Description No Information Available Mental Status Description No Information Available Referrals Description No Information Available
[2019-09-22 15:33] LABS: ABS Basophils 0.1 10^3/ul (0-0.2); ABS Eosinophils 0.1 10^3/ul (0-0.6); ABS Lymphocytes 1.2 10^3/ul (1.0-4.8); ABS Monocytes 0.7 10^3/ul (0-0.8); Eosinophil % 0.8 %; Hematocrit 45 % (35-47); Hemoglobin 14.2 g/dL (12.0-16.0); Lymphocyte % 13.1 %; Mean Corpuscular HGB Conc 32 g/dL (31-36); Mean Corpuscular Hemoglobin 25 pg (27-31); Mean Corpuscular Volume 78 fL (80-97); Mean Platelet Volume 8.4 fL (7.4-10.4); Nucleated Red Blood Cells % 0.2; Platelet Count 214 10^3/uL (150-450); Red Blood Count 5.76 10^6 /uL (3.70-4.87); Red Cell Distribution Width 22 % (10-15)
[2019-09-22 15:55] LABS: ALT 15 U/L (7-52); AST 24 U/L (13-39); Albumin 3.6 g/dL (3.2-5.2); Albumin/Globulin Ratio 0.9 (1-3); Alkaline Phosphatase 224 U/L (34-104); Anion Gap 11 mmol/L (2-11); BUN/Creatinine Ratio 15.3 (8-20); Blood Urea Nitrogen 29 mg/dL (6-24); C Reactive Protein 20.39 mg/L (<8.01); CO2 Carbon Dioxide 26 mmol/L (22-32); Calcium 8.9 mg/dL (8.6-10.3); Chloride 95 mmol/L (101-111); EGFR African American 32.4 (>60); EGFR Non-African American 26.8 (>60); Globulin 3.9 g/dL (2-4); Glucose 196 mg/dL (70-100); Potassium 3.7 mmol/L (3.5-5.0); Sodium 132 mmol/L (135-145); Total Protein 7.5 g/dL (6.4-8.9)
[2019-09-22 16:02] LABS: Influenza A Molecular NEGATIVE (Negative); Influenza B Molecular NEGATIVE (Negative)
[2019-09-22] MEDS ORDERED: Furosemide IV* 10 MG/ML VIAL (40 MG) IV ONE (16:05)
[2019-09-22 16:07] LABS: Troponin I 0.04 ng/mL (<0.03)
[2019-09-22] MEDS ORDERED: Al Hydrox/Mg Hydrox/Simet LIQ* 30 ML UDC PO PRN (17:05)
[2019-09-22] MEDS ORDERED: Docusate CAP* 100 MG PO PRN ×2 (17:05→17:10)
[2019-09-22] MEDS ORDERED: Dextrose 50% VIAL 50 ml IV PUSH PRN (17:08)
[2019-09-22 17:40] LABS: Erythrocyte Sed Rate 17 mm/Hr (0-29)
[2019-09-22] MEDS ORDERED: PROCHLORPERAZINE INJ 5 MG/ML 2 ML VIAL IV PRN (19:58)
[2019-09-22] MEDS ORDERED: Furosemide IV* 10 MG/ML 2 ML VIAL (20 MG) IV ONE (20:00)
[2019-09-22] MEDS: Metoprolol Succinate XL TAB* 100 MG PO SCH (20:01)
[2019-09-22] MEDS: Insulin GLARGINE(*) 1 UNITS UNIT SUBCUT SCH (20:14)
[2019-09-22] MEDS: CMCS: Dabigatran CAP(NF) 75 MG CAP PO SCH (20:15)
[2019-09-22] MEDS: CMCS: Rosuvastatin (NF) 20 MG TAB PO SCH (20:16)
[2019-09-22] MEDS: Acetaminophen TAB* 325 MG PO PRN (20:16)
[2019-09-22] MEDS: Pantoprazole TAB * 40 MG TAB PO SCH (20:16)
[2019-09-22] MEDS: Insulin LISPRO* 1 UNITS UNIT SUBCUT SCH (20:17)
--- NOTE | 2019-09-22 20:50 | HP ---
CC: Dr. Gia Carson; Dr. Valera * HISTORY AND PHYSICAL: DATE OF ADMISSION: 09/22/19 PRIMARY CARE PROVIDER: Dr. Gia Carson. CHIEF COMPLAINT: Shortness of breath. HISTORY OF PRESENT ILLNESS: Kinjal Alcantar is a 63-year-old female with a history of congestive heart failure with ischemic cardiomyopathy and EF of approximately 20%, status post AICD placement as well as atrial fibrillation as well as COPD, not on oxygen at home, but she uses CPAP at night, who presented to the hospital with respiratory distress. The patient stated that she was over the weekend with her grandchildren, who had upper respiratory infection symptoms with cough and nasal congestion. She stated that she felt that she has gotten "the virus." She presented with oxygen saturations in the 80s on room air. She needed to be placed on BiPAP, received 40 mg of IV Lasix and DuoNeb treatment. Currently, her oxygen saturation is 96% off BiPAP. She is feeling much better, but she still complains of nonproductive cough. In addition to the above mentioned, the patient denied any chest pain. She has not had any fevers. She denies any paroxysmal nocturnal dyspnea or orthopnea, although she uses a couple of pillows to sleep and once again she uses CPAP. She had been on clindamycin for approximately 2 weeks as per her primary care provider recommendations for left foot cellulitis. The patient stated that she stopped taking the antibiotic herself today in the morning since it caused her nausea. The patient is going to be placed on overnight observation initially with a diagnosis of congestive heart failure. PAST MEDICAL HISTORY: 1. Coronary artery disease with 3 MIs and 1 stent. 2. History of chronic ischemic cardiomyopathy with EF of 20% causing chronic systolic CHF, status post pacemaker and AICD placement. 3. History of atrial fibrillation, on anticoagulation with Pradaxa. 4. Diabetes mellitus, insulin dependent, type 2. 5. History of DVT and PE, on anticoagulation. 6. Gastroesophageal reflux disease. 7. Chronic kidney disease stage 3. 7. History of x2. 8. Status post hysterectomy. 9. Tonsillectomy. MEDICATIONS: At home include: 1. Lasix 40 mg twice a day. 2. Spironolactone 50 mg daily. 3. Crestor 40 mg a day. 4. Potassium chloride 20 mEq daily. 5. Omeprazole 20 mg b.i.d. 6. Nitroglycerin sublingual on a p.r.n. basis. 7. Metoprolol succinate 100 mg b.i.d. 8. Mag-Ox 400 mg daily. 9. Lispro sliding scale. 10. Glargine 40 units at bedtime. 11. Colace 100 mg at bedtime p.r.n. 12. Pradaxa 75 mg b.i.d. 13. Aspirin 81 mg daily. 14. Furosemide as above mentioned 40 mg b.i.d. ALLERGIES: Multiple include bee pollen; CEPHALOSPORIN causes anaphylaxis; COBICISTAT, hives; DIPHTHERIA, PERTUSSIS, TETANUS, POLIO VACCINE, swelling; ELVITEGRAVIR causes hives; EMTRICITABINE, hives; GLYBURIDE, itching; NIACIN and BASAGLAR INSULIN causes hives; IODINE, hives; LATEX; LIRAGLUTIDE, hives; LOSARTAN, MECLIZINE, MEPERIDINE. Also, the patient is allergic to METFORMIN and NONSTEROIDAL ANTIINFLAMMATORY MEDICATIONS. She cannot take ZOFRAN, PENICILLIN, PROPOXYPHENE, RAMIPRIL, SITAGLIPTIN, TENOFOVIR, TETRACYCLINES, and ATORVASTATIN. FAMILY HISTORY: Father at the age of 43 secondary to cancer likely pancreatic. Mother in her 50s secondary to alcohol abuse. SOCIAL HISTORY: The patient quit smoking in 2005. She has a history of 10-pack - year smoking. She denies any alcohol or drug use. She is . She lives alone. 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 Her daughter, Kyung Johnson, is her surrogate. REVIEW OF SYSTEMS: Please see history of present illness. In addition to the above-mentioned, the patient has chronic bilateral leg edema. The left ankle appears swollen more than the right and that has been ongoing for at least 2 to 3 weeks. She had been on antibiotics for left ankle cellulitis that appears to have resolved. She has had GI upset from clindamycin that she had been on for the past 2 weeks. She has chronic distal lower extremities scarring that had been there ever since early and her heart surgery. All the remaining 12 systems were reviewed with the patient and were otherwise negative. PHYSICAL EXAMINATION GENERAL: The patient is a very pleasant 63-year-old female, who is in no acute distress. The patient is alert and oriented x3. VITAL SIGNS: Blood pressure of 114/84, heart rate of 79 and regular, respiratory rate 20, oxygen saturation 96% on room air, temperature of 97.5. HEENT: Head: Atraumatic, normocephalic. Eyes: Pupils are equal and reactive to light and accommodation. Oropharynx clear. Mucosa moist. NECK: Supple. No JVD. No bruits bilaterally. RESPIRATORY: Rales at bilateral bases. CARDIOVASCULAR: Regular rate and rhythm. Paced rhythm on the classroom monitor. ABDOMEN: Soft, nontender. Bowel sounds present in all 4 quadrants. EXTREMITIES: There is bilateral +1 pitting pedal edema, left more than right. There is no clubbing, no cyanosis. Pulses are +2 bilaterally. NEUROLOGIC: Speech is clear. Cranial nerve II through XII grossly intact. Motor strength is 5/5 bilaterally. SKIN: On evaluation of the patient's skin, the patient has chronic appearing erythema of bottom of the left foot in the left ankle area. There is no increased warmth. There is no streaking suggestive of cellulitis. On bilateral lower extremities on the shins, the patient has scarring that appears to be punctate like, maybe after folliculitis or some infected excoriations. There is no evidence of open wounds. DIAGNOSTIC STUDIES/LAB DATA: Laboratory data and studies performed in the ED included: The patient's EKG showed atrial/ventricular paced complexes with a heart rate of 82 beats per minute. The patient's portable chest x-ray read by the radiologist as "cardiomegaly." No definite pneumonia noted. The patient has " ." Laboratory data: White blood cell count of 9.0, hemoglobin of 14.2, hematocrit of 45, and platelets of 214. VBG showed pH of 7.14, pCO2 of 44, paO2 of 68. Sodium of 132, potassium 3.7, chloride 98.5, carbon dioxide 26, BUN 29, creatinine 1.89. Liver function tests showed elevation of bilirubin of 1.2, which is mild; otherwise AST of 24, ALT of 15, alkaline phosphatase is chronically elevated at 224, lactic acid was elevated at 3.0, that was when the patient was hypoxemic. Troponin of 0.04. Brain natriuretic peptide of above 1300. C-reactive protein of 20. ASSESSMENT AND PLAN: 1. The patient has an acute hypoxic respiratory failure due to congestive heart failure that resolved after BiPAP, Lasix and DuoNeb. At this point, I suspect that was exacerbated by the patient's likely upper respiratory infection , suspect viral. I do not believe the patient is septic and her elevated lactic acid is likely due to hypoxemia, which she presented with. Therefore, we will not follow up with repeat form of lactic acid checks. The patient is going to be placed on overnight observation on telemetry monitored bed. We will start Lasix IV twice a day with strict I's and O's, and daily weights. When the patient is diuresing with IV Lasix, I will hold the patient's Aldactone. 2. In regard of history of cellulitis in the left ankle, there is no evidence of cellulitis. Clindamycin is going to be stopped. 3. For the patient's diabetes, the patient is going to be placed on insulin sliding scale and daily Lantus that she uses at night. 4. The patient has chronic kidney disease stage 3 with creatinine at baseline of approximately 1.5. The patient's creatinine was up to 2.4 on 09/04/19, where she was with congestive heart failure. Her creatinine today is 1.89, which is better than prior. 5. Elevation of alkaline phosphatase. The patient has a history of elevation of alkaline phosphatase dating back to 2018. I will defer it to the patient's primary care provider to investigate further. 6. Elevation of troponin is mild and likely related to the patient's chronic kidney disease as well as respiratory distress with which she presented with. We will follow up with telemetry monitoring and troponin. 7. For DVT prophylaxis, the patient is going to be continued on her Pradaxa. 8. The patient's code status is full. Her surrogate is her daughter, Kyung, as mentioned above. TIME SPENT: Approximately 62 minutes was spent on admission of this patient, more than half of that time was spent [id number] with the patient during the interview and physical exam. [id number]/[facility] #: [id number] PATSY
[2019-09-22 20:59] LABS: Troponin I 0.04 ng/mL (<0.03)
[2019-09-22 23:38] LABS: Troponin I 0.04 ng/mL (<0.03)
[2019-09-23 00:32] LABS: BUN/Creatinine Ratio 15.4 (8-20); Calcium 8.8 mg/dL (8.6-10.3); EGFR African American 32.6 (>60); EGFR Non-African American 26.9 (>60); Magnesium 2.4 mg/dL (1.9-2.7); Potassium 3.2 mmol/L (3.5-5.0)
[2019-09-23] MEDS ORDERED: Potassium Chlor TAB* 20 MEQ TAB.ER PO ONE (01:33)
[2019-09-23] MEDS: Acetaminophen TAB* 325 MG PO PRN ×3 (02:04→20:54)
[2019-09-23] MEDS: Insulin LISPRO* 1 UNITS UNIT SUBCUT SCH ×3 (07:29→17:05)
[2019-09-23 08:10] LABS: ABS Basophils 0.1 10^3/ul (0-0.2); ABS Eosinophils 0.1 10^3/ul (0-0.6); ABS Lymphocytes 0.7 10^3/ul (1.0-4.8); ABS Monocytes 0.4 10^3/ul (0-0.8); Eosinophil % 1.5 %; Hematocrit 42 % (35-47); Hemoglobin 13.2 g/dL (12.0-16.0); Lymphocyte % 11.5 %; Mean Corpuscular HGB Conc 32 g/dL (31-36); Mean Corpuscular Hemoglobin 25 pg (27-31); Mean Corpuscular Volume 77 fL (80-97); Mean Platelet Volume 8.1 fL (7.4-10.4); Nucleated Red Blood Cells % 0.2; Platelet Count 187 10^3/uL (150-450); Red Cell Distribution Width 22 % (10-15); White Blood Count 6.3 10^3/uL (3.5-10.8)
[2019-09-23] MEDS: CMCS: Dabigatran CAP(NF) 75 MG CAP PO SCH (08:18)
[2019-09-23] MEDS: Magnesium Oxide TAB* 400 MG PO SCH (08:19)
[2019-09-23] MEDS: Metoprolol Succinate XL TAB* 100 MG PO SCH ×2 (08:19→20:32)
[2019-09-23] MEDS: Aspirin EC TAB* 81 MG TAB.EC PO SCH (08:21)
[2019-09-23] MEDS: Potassium Chlor TAB* 20 MEQ TAB.ER PO SCH ×2 (08:22→20:32)
[2019-09-23] MEDS: Pantoprazole TAB * 40 MG TAB PO SCH ×2 (08:22→20:32)
[2019-09-23] MEDS: Furosemide IV* 10 MG/ML VIAL (40 MG) IV SCH ×2 (08:23→16:40)
[2019-09-23 08:55] LABS: Albumin 3.3 g/dL (3.2-5.2); Albumin/Globulin Ratio 0.9 (1-3); BUN/Creatinine Ratio 15.4 (8-20); Calcium 8.7 mg/dL (8.6-10.3); EGFR African American 30.2 (>60); EGFR Non-African American 24.9 (>60); Globulin 3.7 g/dL (2-4); Potassium 3.3 mmol/L (3.5-5.0); Total Bilirubin 1.3 mg/dL (0.2-1.0)
[2019-09-23] MEDS ORDERED: Potassium Chlor TAB* 20 MEQ TAB.ER PO SCH (09:00)
--- NOTE | 2019-09-23 12:31 | PN ---
Subjective Date of Service: 09/23/19 Interval History: No acute events overnight. Afebrile. Feeling a little bit better compared to admission but breathing is still labored with now more frequently productive cough. Some chest pain last night. Refused trial of a different inhaler with Dr. Bucio as an outpatient. Does not know what it was called. Has nebulizer at home. Insurance changed so planning to see heart failure clinic in [place], maybe in Oct, not set up yet. Right ankle looking better had initially been purple as an outpatient. Was taking lasix 40mg AM, 60mg PM since 09/05 discharge. Weights have been seesawing between 220-230. Does not know her dry weight. Not eating well bad PICKARD since yesterday. refusing consideration of seteroids. Objective Active Medications: Acetaminophen (Tylenol Tab*) 650 mg PO Q4H PRN PRN Reason: PAIN-MILD/TEMP >/= 100.4 Last Admin: 09/23/19 02:04 Dose: 650 mg Al Hydrox/Mg Hydrox/Simethicone (Maalox Plus*) 30 ml PO Q6H PRN PRN Reason: INDIGESTION Albuterol/Ipratropium (Duoneb (Albuterol 2.5 Mg/Ipratropium 0.5 Mg)) 1 neb INH [id number] AWAKE PRN PRN Reason: sob/wheexing Aspirin (Aspirin Ec Tab*) 81 mg PO QAM [facility] Last Admin: 09/23/19 08:21 Dose: 81 mg Dabigatran (Pradaxa Cap(Nf)) 150 mg PO BID [facility] Dextrose (Dextrose 50% Vial 50 Ml*) 25 ml IV PUSH .FOR FS < 60 - SS PRN PRN Reason: FS < 60 Docusate Sodium (Colace Cap*) 100 mg PO DAILY PRN PRN Reason: CONSTIPATION Last Admin: 09/23/19 02:09 Dose: 100 mg Docusate Sodium (Colace Cap*) 100 mg PO BEDTIME PRN PRN Reason: CONSTIPATION Furosemide (Lasix Iv*) 40 mg IV 0800,1700 [facility] Last Admin: 09/23/19 08:23 Dose: 40 mg Insulin Glargine (Lantus(*)) 40 units SUBCUT BEDTIME [facility] Last Admin: 09/22/19 20:14 Dose: 40 units Insulin Human Lispro (Humalog*) 0 units SUBCUT ACHS [facility]; Protocol Last Admin: 09/23/19 11:48 Dose: 4 units Magnesium Oxide (Magox 400 Tab*) 400 mg PO QAM [facility] Last Admin: 09/23/19 08:19 Dose: 400 mg Metoprolol Succinate (Toprol Xl Tab*) 100 mg PO BID [facility] Last Admin: 09/23/19 08:19 Dose: 100 mg Pantoprazole Sodium (Protonix Tab*) 40 mg PO BID [facility] Last Admin: 09/23/19 08:22 Dose: 40 mg Potassium Chloride (Klor Con Er Tab*) 20 meq PO BID [facility] Last Admin: 09/23/19 08:22 Dose: 20 meq Prochlorperazine Edisylate (Compazine Inj*) 2.5 mg IV Q6H PRN PRN Reason: NAUSEA/VOMITING Rosuvastatin Calcium (Crestor (Nf)) 40 mg PO QPM [facility] Last Admin: 09/22/19 20:16 Dose: 40 mg Vital Signs - 8 hr 09/23/19 09/23/19 07:00 11:00 Temperature 97.2 F 97 F Pulse Rate 61 63 Respiratory 18 16 Rate Blood Pressure 123/52 119/58 (mmHg) O2 Sat by Pulse 96 97 Oximetry Oxygen Devices in Use Now: None, BiPAP Appearance: chronically ill appearing. Eyes: No Scleral Icterus Ears/Nose/Mouth/Throat: NL Teeth, Lips, Gums Respiratory: Symmetrical Chest Expansion and Respiratory Effort, - - diffuse expiratory wheezing. no rales or rhonchi. Cardiovascular: NL Sounds; No Murmurs; No JVD, RRR Abdominal: NL Sounds; No Tenderness; No Distention, No Hepatosplenomegaly Extremities: - - 1+ edema bl Skin: - - right ankle with slight erythema, minimal warmth. Neurological: Alert and Oriented x 3, NL Sensation Result Diagrams: 09/23/19 07:22 09/23/19 07:22 Additional Lab and Data: Laboratory Results - last 24 hr 09/22/19 09/22/19 09/22/19 15:05 15:12 15:14 WBC 9.0 RBC 5.76 H Hgb 14.2 Hct 45 MCV 78 L MCH 25 L MCHC 32 RDW 22 H Plt Count 214 MPV 8.4 Neut % (Auto) 77.8 Lymph % (Auto) 13.1 [place] % (Auto) 7.2 Eos % (Auto) 0.8 Baso % (Auto) 1.1 Absolute Neuts (auto) 7.0 Absolute Lymphs (auto) 1.2 Absolute Monos (auto) 0.7 Absolute Eos (auto) 0.1 Absolute Basos (auto) 0.1 Absolute Nucleated RBC 0.0 Nucleated RBC % 0.2 ESR 17 VBG pH VBG pCO2 VBG pO2 VBG HCO3 VBG O2 Saturation VBG Base Excess Sodium 132 L Potassium 3.7 Chloride 95 L Carbon Dioxide 26 Anion Gap 11 BUN 29 H Creatinine 1.89 H Est GFR ( Amer) 32.4 Est GFR (Non-Af Amer) 26.8 BUN/Creatinine Ratio 15.3 Glucose 196 H POC Glucose (mg/dL) Lactic Acid 3.0 H* Calcium 8.9 Magnesium Total Bilirubin 1.20 H AST 24 ALT 15 Alkaline Phosphatase 224 H Troponin I 0.04 H* C-Reactive Protein 20.39 H B-Natriuretic Peptide Total Protein 7.5 Albumin 3.6 Globulin 3.9 Albumin/Globulin Ratio 0.9 L Influenza A (Rapid) Influenza B (Rapid) 09/22/19 09/22/19 09/22/19 15:14 15:14 15:20 WBC RBC Hgb Hct MCV MCH MCHC RDW Plt Count MPV Neut % (Auto) Lymph % (Auto) [place] % (Auto) Eos % (Auto) Baso % (Auto) Absolute Neuts (auto) Absolute Lymphs (auto) Absolute Monos (auto) Absolute Eos (auto) Absolute Basos (auto) Absolute Nucleated RBC Nucleated RBC % ESR VBG pH 7.41 VBG pCO2 44 VBG pO2 39.0 VBG HCO3 26.2 VBG O2 Saturation 68.6 L VBG Base Excess 2.7 Sodium Potassium Chloride Carbon Dioxide Anion Gap BUN Creatinine Est GFR ( Amer) Est GFR (Non-Af Amer) BUN/Creatinine Ratio Glucose POC Glucose (mg/dL) Lactic Acid Calcium Magnesium Total Bilirubin AST ALT Alkaline Phosphatase Troponin I C-Reactive Protein B-Natriuretic Peptide > 1300 H Total Protein Albumin Globulin Albumin/Globulin Ratio Influenza A (Rapid) Negative Influenza B (Rapid) Negative 09/22/19 09/22/19 09/22/19 19:21 20:14 23:04 WBC RBC Hgb Hct MCV MCH MCHC RDW Plt Count MPV Neut % (Auto) Lymph % (Auto) [place] % (Auto) Eos % (Auto) Baso % (Auto) Absolute Neuts (auto) Absolute Lymphs (auto) Absolute Monos (auto) Absolute Eos (auto) Absolute Basos (auto) Absolute Nucleated RBC Nucleated RBC % ESR VBG pH VBG pCO2 VBG pO2 VBG HCO3 VBG O2 Saturation VBG Base Excess Sodium Potassium Chloride Carbon Dioxide Anion Gap BUN Creatinine Est GFR ( Amer) Est GFR (Non-Af Amer) BUN/Creatinine Ratio Glucose POC Glucose (mg/dL) 129 H Lactic Acid Calcium Magnesium Total Bilirubin AST ALT Alkaline Phosphatase Troponin I 0.04 H* 0.04 H* C-Reactive Protein B-Natriuretic Peptide Total Protein Albumin Globulin Albumin/Globulin Ratio Influenza A (Rapid) Influenza B (Rapid) 09/23/19 09/23/19 09/23/19 00:10 00:10 07:22 WBC RBC Hgb Hct MCV MCH MCHC RDW Plt Count MPV Neut % (Auto) Lymph % (Auto) [place] % (Auto) Eos % (Auto) Baso % (Auto) Absolute Neuts (auto) Absolute Lymphs (auto) Absolute Monos (auto) Absolute Eos (auto) Absolute Basos (auto) Absolute Nucleated RBC Nucleated RBC % ESR VBG pH VBG pCO2 VBG pO2 VBG HCO3 VBG O2 Saturation VBG Base Excess Sodium 134 L 136 Potassium 3.2 L 3.3 L Chloride 94 L 97 L Carbon Dioxide 32 31 Anion Gap 8 8 BUN 29 H 31 H Creatinine 1.88 H 2.01 H Est GFR ( Amer) 32.6 30.2 Est GFR (Non-Af Amer) 26.9 24.9 BUN/Creatinine Ratio 15.4 15.4 Glucose 165 H 57 L POC Glucose (mg/dL) Lactic Acid 0.9 Calcium 8.8 8.7 Magnesium 2.4 Total Bilirubin 1.30 H AST 22 ALT 12 Alkaline Phosphatase 206 H Troponin I C-Reactive Protein B-Natriuretic Peptide Total Protein 7.0 Albumin 3.3 Globulin 3.7 Albumin/Globulin Ratio 0.9 L Influenza A (Rapid) Influenza B (Rapid) 09/23/19 09/23/19 09/23/19 07:22 07:23 11:11 WBC 6.3 RBC 5.40 H Hgb 13.2 Hct 42 MCV 77 L MCH 25 L MCHC 32 RDW 22 H Plt Count 187 MPV 8.1 Neut % (Auto) 79.4 Lymph % (Auto) 11.5 [place] % (Auto) 6.5 Eos % (Auto) 1.5 Baso % (Auto) 1.1 Absolute Neuts (auto) 5.0 Absolute Lymphs (auto) 0.7 L Absolute Monos (auto) 0.4 Absolute Eos (auto) 0.1 Absolute Basos (auto) 0.1 Absolute Nucleated RBC 0.0 Nucleated RBC % 0.2 ESR VBG pH VBG pCO2 VBG pO2 VBG HCO3 VBG O2 Saturation VBG Base Excess Sodium Potassium Chloride Carbon Dioxide Anion Gap BUN Creatinine Est GFR ( Amer) Est GFR (Non-Af Amer) BUN/Creatinine Ratio Glucose POC Glucose (mg/dL) 85 232 H Lactic Acid Calcium Magnesium Total Bilirubin AST ALT Alkaline Phosphatase Troponin I C-Reactive Protein B-Natriuretic Peptide Total Protein Albumin Globulin Albumin/Globulin Ratio Influenza A (Rapid) Influenza B (Rapid) Assess/Plan/Problems-Billing Assessment: 63 yo female PMH severe systolic CHF (EF 15-20%), COPD, CAD, Afib(pradaxa), CKD III, IDDM, PE/DVT, ANNE(CPAP), obesity(BMI 36) p/w cough, SOB, wheezing a few days after grandchildren had URI. BNP >1300. Flu negative. Afebrile, no leukocytosis. - Patient Problems (1) URI (upper respiratory infection) Current Visit: Yes Status: Acute Code(s): J06.9 - ACUTE UPPER RESPIRATORY INFECTION, UNSPECIFIED SNOMED Code(s): 78888282 Comment: Grandchildren had URI symptoms for last 1 week. Influenza was negative. Suspect was inciting event with brittle baseline given severe CHF, COPD (with some sub optimal inhaler regimen given allergy or refusal) (2) COPD (chronic obstructive pulmonary disease) Current Visit: Yes Status: Acute Code(s): J44.9 - CHRONIC OBSTRUCTIVE PULMONARY DISEASE, UNSPECIFIED SNOMED Code(s): 63903083 Comment: Continue duonebs. She refused steroids, fearful of effect on her blood glucose. She refuses alternate inhalers - I don't see an allergy in list. Sputum sample. Consider azithromycin. (3) Acute on chronic systolic heart failure Current Visit: No Status: Acute Code(s): I50.23 - ACUTE ON CHRONIC SYSTOLIC (CONGESTIVE) HEART FAILURE SNOMED Code(s): 702756931 Comment: Continue IV lasix 40mg BID She has been referred to the heart failure clinic at [place] but will not be seen until the new year, maybe October. BNP >1300 daily weights strict ios (4) Atrial fibrillation Current Visit: No Status: Acute Code(s): I48.91 - UNSPECIFIED ATRIAL FIBRILLATION SNOMED Code(s): 64607495 Comment: In NSR. Continue metoprolol and pradaxa. (5) CKD (chronic kidney disease), stage III Current Visit: No Status: Acute Code(s): N18.3 - CHRONIC KIDNEY DISEASE, STAGE 3 (MODERATE) SNOMED Code(s): 680611253 Comment: Creatinine 1.9-2.0 BMP daily. (6) History of pulmonary embolism Current Visit: No Status: Acute Code(s): Z86.711 - PERSONAL HISTORY OF PULMONARY EMBOLISM SNOMED Code(s): 917083291 Comment: - Continue pradaxa 150 mg bid. Her CrCl is borderline and may need to go back down to 75mg BID if worsens again (7) Redness and swelling of lower leg Current Visit: No Status: Acute Code(s): M79.89 - OTHER SPECIFIED SOFT TISSUE DISORDERS; R23.8 - OTHER SKIN CHANGES SNOMED Code(s): 042798367 Comment: monitor, completed 11 days of clinda as an outpatient. (8) HTN (hypertension) Current Visit: No Status: Chronic Code(s): I10 - ESSENTIAL (PRIMARY) HYPERTENSION SNOMED Code(s): 11861072 Comment: BP under excellent control. Continue metoprolol XL 100mg BID, lasix and spironolactone. (9) Moderate to severe pulmonary hypertension Current Visit: No Status: Chronic Code(s): I27.2 - OTHER SECONDARY PULMONARY HYPERTENSION * DO NOT USE * SNOMED Code(s): 56300021 (10) Severe tricuspid regurgitation Current Visit: No Status: Chronic Code(s): I07.1 - RHEUMATIC TRICUSPID INSUFFICIENCY SNOMED Code(s): 596329396 (11) DVT prophylaxis Current Visit: No Status: Acute Code(s): EEH2080 - SNOMED Code(s): 245345974 Comment: Pradaxa Status and Disposition: medicine,change to inpatient status.
[2019-09-23] MEDS: CMCS: Rosuvastatin (NF) 20 MG TAB PO SCH (17:05)
[2019-09-23] MEDS: Albuterol/Ipratropium NEB.SOL* Albuterol 2.5 MG/Ipratropium 0.5 MG 3 ML INH PRN (19:32)
[2019-09-23] MEDS: CMCS: Dabigatran CAP(NF) 150 MG CAP PO SCH (20:32)
[2019-09-23] MEDS: Insulin GLARGINE(*) 1 UNITS UNIT SUBCUT SCH (20:32)
[2019-09-24] MEDS: Insulin LISPRO* 1 UNITS UNIT SUBCUT SCH ×5 (00:01→20:08)
[2019-09-24 06:48] LABS: BUN/Creatinine Ratio 15.6 (8-20); Calcium 8.6 mg/dL (8.6-10.3); EGFR African American 37.4 (>60); EGFR Non-African American 30.9 (>60); Potassium 3.4 mmol/L (3.5-5.0)
[2019-09-24] MEDS: Acetaminophen TAB* 325 MG PO PRN (07:16)
[2019-09-24] MEDS: Albuterol/Ipratropium NEB.SOL* Albuterol 2.5 MG/Ipratropium 0.5 MG 3 ML INH PRN (07:19)
[2019-09-24] MEDS: Potassium Chlor TAB* 20 MEQ TAB.ER PO SCH ×2 (08:14→20:07)
[2019-09-24] MEDS: Pantoprazole TAB * 40 MG TAB PO SCH ×2 (08:15→20:07)
[2019-09-24] MEDS: Aspirin EC TAB* 81 MG TAB.EC PO SCH (08:15)
[2019-09-24] MEDS: Magnesium Oxide TAB* 400 MG PO SCH (08:15)
[2019-09-24] MEDS: Metoprolol Succinate XL TAB* 100 MG PO SCH ×2 (08:15→20:07)
[2019-09-24] MEDS: CMCS: Dabigatran CAP(NF) 150 MG CAP PO SCH ×2 (08:16→20:07)
[2019-09-24] MEDS: Furosemide IV* 10 MG/ML VIAL (40 MG) IV SCH ×2 (08:19→17:13)
--- NOTE | 2019-09-24 11:57 | PN ---
Subjective Date of Service: 09/24/19 Interval History: No acute events overnight. Afebrile. Still junky cough, wheezing, GOSS/SOB. Occ sharp chest pains to left. allergic to "purple round" inhaler "they give you when you have pneumonia" Feeling a bit better. bed weight 108.2 from 107.7. limited i/o data Objective Active Medications: Acetaminophen (Tylenol Tab*) 650 mg PO Q4H PRN PRN Reason: PAIN-MILD/TEMP >/= 100.4 Last Admin: 09/24/19 07:16 Dose: 650 mg Al Hydrox/Mg Hydrox/Simethicone (Maalox Plus*) 30 ml PO Q6H PRN PRN Reason: INDIGESTION Albuterol/Ipratropium (Duoneb (Albuterol 2.5 Mg/Ipratropium 0.5 Mg)) 1 neb INH [id number] AWAKE PRN PRN Reason: sob/wheexing Last Admin: 09/24/19 07:19 Dose: 1 neb Aspirin (Aspirin Ec Tab*) 81 mg PO [facility] Last Admin: 09/24/19 08:15 Dose: 81 mg Dabigatran (Pradaxa Cap(Nf)) 150 mg PO BID [facility] Last Admin: 09/24/19 08:16 Dose: 150 mg Dextrose (Dextrose 50% Vial 50 Ml*) 25 ml IV PUSH .FOR FS < 60 - SS PRN PRN Reason: FS < 60 Docusate Sodium (Colace Cap*) 100 mg PO DAILY PRN PRN Reason: CONSTIPATION Last Admin: 09/23/19 02:09 Dose: 100 mg Docusate Sodium (Colace Cap*) 100 mg PO BEDTIME PRN PRN Reason: CONSTIPATION Furosemide (Lasix Iv*) 40 mg IV 0800,1700 [facility] Last Admin: 09/24/19 08:19 Dose: 40 mg Insulin Glargine (Lantus(*)) 40 units SUBCUT BEDTIME [facility] Last Admin: 09/23/19 20:32 Dose: 40 units Insulin Human Lispro (Humalog*) 0 units SUBCUT [facility]; Protocol Last Admin: 09/24/19 07:20 Dose: Not Given Magnesium Oxide (Magox 400 Tab*) 400 mg PO [facility] Last Admin: 09/24/19 08:15 Dose: 400 mg Metoprolol Succinate (Toprol Xl Tab*) 100 mg PO BID [facility] Last Admin: 09/24/19 08:15 Dose: 100 mg Pantoprazole Sodium (Protonix Tab*) 40 mg PO BID [facility] Last Admin: 09/24/19 08:15 Dose: 40 mg Potassium Chloride (Klor Con Er Tab*) 20 meq PO BID [facility] Last Admin: 09/24/19 08:14 Dose: 20 meq Prochlorperazine Edisylate (Compazine Inj*) 2.5 mg IV Q6H PRN PRN Reason: NAUSEA/VOMITING Rosuvastatin Calcium (Crestor (Nf)) 40 mg PO QPM [facility] Last Admin: 09/23/19 17:05 Dose: 40 mg Vital Signs - 8 hr 09/24/19 09/24/19 09/24/19 07:00 07:21 08:00 Temperature 97.9 F Pulse Rate 77 65 Respiratory 16 22 18 Rate Blood Pressure 111/52 (mmHg) O2 Sat by Pulse 98 98 Oximetry Oxygen Devices in Use Now: Nasal Cannula Appearance: NAD Eyes: No Scleral Icterus Ears/Nose/Mouth/Throat: NL Teeth, Lips, Gums Neck: NL Appearance and Movements; NL JVP Respiratory: - - no wheezing, rales or rhonchi. moderate air exchange Cardiovascular: NL Sounds; No Murmurs; No JVD Abdominal: NL Sounds; No Tenderness; No Distention Extremities: - - 1+ edema b/l Neurological: Alert and Oriented x 3 Nutrition: Taking PO's Result Diagrams: 09/23/19 07:22 09/24/19 06:11 Additional Lab and Data: Laboratory Results - last 24 hr 09/23/19 09/23/19 09/24/19 16:34 19:23 06:11 Sodium 135 Potassium 3.4 L Chloride 96 L Carbon Dioxide 34 H Anion Gap 5 BUN 26 H Creatinine 1.67 H Est GFR ( Amer) 37.4 Est GFR (Non-Af Amer) 30.9 BUN/Creatinine Ratio 15.6 Glucose 109 H POC Glucose (mg/dL) 191 H 208 H Calcium 8.6 09/24/19 09/24/19 07:19 11:35 Sodium Potassium Chloride Carbon Dioxide Anion Gap BUN Creatinine Est GFR ( Amer) Est GFR (Non-Af Amer) BUN/Creatinine Ratio Glucose POC Glucose (mg/dL) 80 240 H Calcium Microbiology and Other Data: Microbiology 09/23/19 15:40 Sputum Expectorated Gram Stain - Final 09/22/19 15:20 Blood Venous Aerobic Blood Culture - Preliminary No Growth Day 1 09/22/19 15:20 Blood Venous Anaerobic Blood Culture - Preliminary No Growth Day 1 09/22/19 15:14 Blood Venous Aerobic Blood Culture - Preliminary No Growth Day 1 09/22/19 15:14 Blood Venous Anaerobic Blood Culture - Preliminary No Growth Day 1 Assess/Plan/Problems-Billing Assessment: 63 yo female PMH severe systolic CHF (EF 15-20%), COPD, CAD, Afib(pradaxa), CKD III, IDDM, PE/DVT, ANNE(CPAP), obesity(BMI 36) p/w cough, SOB, wheezing a few days after grandchildren had URI. BNP >1300. Flu negative. Afebrile, no leukocytosis. - Patient Problems (1) URI (upper respiratory infection) Current Visit: Yes Status: Acute Code(s): J06.9 - ACUTE UPPER RESPIRATORY INFECTION, UNSPECIFIED SNOMED Code(s): 25829783 Comment: Grandchildren had URI symptoms for last 1 week. Influenza was negative. Suspect was inciting event with brittle baseline given severe CHF, COPD (with some sub optimal inhaler regimen given allergy or refusal) Try to get records from Dr. Bucio. I suspect it is Dulera she is allergic too. (2) COPD (chronic obstructive pulmonary disease) Current Visit: Yes Status: Acute Code(s): J44.9 - CHRONIC OBSTRUCTIVE PULMONARY DISEASE, UNSPECIFIED SNOMED Code(s): 69388309 Comment: Continue duonebs. She refused steroids, fearful of effect on her blood glucose. She refuses alternate inhalers - I don't see any allergy in list but suspect it is Dulera based on round purple description. Request records from Dr. Bucio Sputum with normal danielle. Consider azithromycin. (3) Acute on chronic systolic heart failure Current Visit: No Status: Acute Code(s): I50.23 - ACUTE ON CHRONIC SYSTOLIC (CONGESTIVE) HEART FAILURE SNOMED Code(s): 009878756 Comment: Continue IV lasix 40mg BID She has been referred to the heart failure clinic at [place] but will not be seen until the new year, maybe October. BNP >1300 daily weights (start doing standing scale only, no bed weights) start strict io strict ios (4) Atrial fibrillation Current Visit: No Status: Acute Code(s): I48.91 - UNSPECIFIED ATRIAL FIBRILLATION SNOMED Code(s): 10887234 Comment: In NSR. Continue metoprolol and pradaxa. (5) CKD (chronic kidney disease), stage III Current Visit: No Status: Acute Code(s): N18.3 - CHRONIC KIDNEY DISEASE, STAGE 3 (MODERATE) SNOMED Code(s): 415565600 Comment: Creatinine improvd to 1.67 from 1.9-2.0 BMP daily. (6) History of pulmonary embolism Current Visit: No Status: Acute Code(s): Z86.711 - PERSONAL HISTORY OF PULMONARY EMBOLISM SNOMED Code(s): 543077216 Comment: - Continue pradaxa 150 mg bid. Her CrCl is borderline and may need to go back down to 75mg BID if worsens again (7) Redness and swelling of lower leg Current Visit: No Status: Acute Code(s): M79.89 - OTHER SPECIFIED SOFT TISSUE DISORDERS; R23.8 - OTHER SKIN CHANGES SNOMED Code(s): 369908568 Comment: monitor, completed 11 days of clinda as an outpatient. (8) HTN (hypertension) Current Visit: No Status: Chronic Code(s): I10 - ESSENTIAL (PRIMARY) HYPERTENSION SNOMED Code(s): 61631851 Comment: BP under excellent control. Continue metoprolol XL 100mg BID, lasix. Home spironolactone 50mg was held on admission. (9) Moderate to severe pulmonary hypertension Current Visit: No Status: Chronic Code(s): I27.2 - OTHER SECONDARY PULMONARY HYPERTENSION * DO NOT USE * SNOMED Code(s): 23820787 (10) Severe tricuspid regurgitation Current Visit: No Status: Chronic Code(s): I07.1 - RHEUMATIC TRICUSPID INSUFFICIENCY SNOMED Code(s): 498834396 (11) DVT prophylaxis Current Visit: No Status: Acute Code(s): PDC8246 - SNOMED Code(s): 940369132 Comment: Pradaxa Status and Disposition: medicine, inpatient status.
[2019-09-24] MEDS: Albuterol/Ipratropium NEB.SOL* Albuterol 2.5 MG/Ipratropium 0.5 MG 3 ML INH SCH ×2 (13:44→20:18)
[2019-09-24] MEDS: Acetaminophen / Codeine* #3 (300 MG/30 MG) TAB PO PRN (16:37)
[2019-09-24] MEDS: CMCS: Rosuvastatin (NF) 20 MG TAB PO SCH (18:41)
[2019-09-24] MEDS: Insulin GLARGINE(*) 1 UNITS UNIT SUBCUT SCH (20:08)
[2019-09-25] MEDS: Albuterol/Ipratropium NEB.SOL* Albuterol 2.5 MG/Ipratropium 0.5 MG 3 ML INH SCH ×4 (00:25→19:43)
[2019-09-25 05:31] LABS: BUN/Creatinine Ratio 14.3 (8-20); Calcium 8.2 mg/dL (8.6-10.3); EGFR Non-African American 32.2 (>60); Potassium 3.8 mmol/L (3.5-5.0)
[2019-09-25] MEDS: Insulin LISPRO* 1 UNITS UNIT SUBCUT SCH ×4 (08:01→19:29)
[2019-09-25] MEDS: Furosemide IV* 10 MG/ML VIAL (40 MG) IV SCH ×2 (08:12→17:14)
[2019-09-25] MEDS: CMCS: Dabigatran CAP(NF) 150 MG CAP PO SCH ×2 (08:13→21:16)
[2019-09-25] MEDS: Aspirin EC TAB* 81 MG TAB.EC PO SCH (08:13)
[2019-09-25] MEDS: Pantoprazole TAB * 40 MG TAB PO SCH ×2 (08:13→21:11)
[2019-09-25] MEDS: Magnesium Oxide TAB* 400 MG PO SCH (08:13)
[2019-09-25] MEDS: Metoprolol Succinate XL TAB* 100 MG PO SCH ×2 (08:13→21:11)
[2019-09-25] MEDS: Potassium Chlor TAB* 20 MEQ TAB.ER PO SCH ×2 (08:14→21:11)
[2019-09-25] MEDS ORDERED: Benzonatate CAP* 100 MG PO PRN (09:10)
[2019-09-25] MEDS: guaiFENesin/CODIENE 100mg/10mg 5 ML UDC PO PRN ×3 (09:27→21:10)
--- NOTE | 2019-09-25 16:08 | PN ---
Subjective Date of Service: 09/25/19 Interval History: no acute events overnight, afebrile. still coughing, some wheezing. very SOB with ambulation which she finds very discouraging. Yellow productive cough. Duonebs helping. Advair she thinks is the allergy (hard to breath) left toes feel swollen if dependent to the point of pain. Objective Active Medications: Acetaminophen (Tylenol Tab*) 650 mg PO Q4H PRN PRN Reason: PAIN-MILD/TEMP >/= 100.4 Last Admin: 09/24/19 07:16 Dose: 650 mg Acetaminophen/Codeine Phosphate (Tylenol/Codeine 30 Mg Tab*) 1 tab PO Q6H PRN PRN Reason: PAIN - MODERATE Last Admin: 09/24/19 16:37 Dose: 1 tab Al Hydrox/Mg Hydrox/Simethicone (Maalox Plus*) 30 ml PO Q6H PRN PRN Reason: INDIGESTION Albuterol/Ipratropium (Duoneb (Albuterol 2.5 Mg/Ipratropium 0.5 Mg)) 1 neb INH [id number] AWAKE PRN PRN Reason: sob/wheexing Last Admin: 09/24/19 07:19 Dose: 1 neb Albuterol/Ipratropium (Duoneb (Albuterol 2.5 Mg/Ipratropium 0.5 Mg)) 1 neb INH [id number] AWAKE [facility] Last Admin: 09/25/19 13:09 Dose: 1 neb Aspirin (Aspirin Ec Tab*) 81 mg PO QAM [facility] Last Admin: 09/25/19 08:13 Dose: 81 mg Benzonatate (Tessalon Cap*) 100 mg PO BID PRN PRN Reason: COUGH Dabigatran (Pradaxa Cap(Nf)) 150 mg PO BID [facility] Last Admin: 09/25/19 08:13 Dose: 150 mg Dextrose (Dextrose 50% Vial 50 Ml*) 25 ml IV PUSH .FOR FS < 60 - SS PRN PRN Reason: FS < 60 Docusate Sodium (Colace Cap*) 100 mg PO DAILY PRN PRN Reason: CONSTIPATION Last Admin: 09/23/19 02:09 Dose: 100 mg Docusate Sodium (Colace Cap*) 100 mg PO BEDTIME PRN PRN Reason: CONSTIPATION Furosemide (Lasix Iv*) 60 mg IV 0800,1700 [facility] Guaifenesin/Codeine Phosphate (Robitussin Ac 100mg/10mg In 5 Ml) 5 ml PO Q6H PRN PRN Reason: COUGH Last Admin: 09/25/19 15:27 Dose: 5 ml Insulin Glargine (Lantus(*)) 40 units SUBCUT BEDTIME [facility] Last Admin: 09/24/19 20:08 Dose: 40 units Insulin Human Lispro (Humalog*) 0 units SUBCUT ACHS [facility]; Protocol Last Admin: 09/25/19 12:04 Dose: 2 units Magnesium Oxide (Magox 400 Tab*) 400 mg PO QAM [facility] Last Admin: 09/25/19 08:13 Dose: 400 mg Metoprolol Succinate (Toprol Xl Tab*) 100 mg PO BID [facility] Last Admin: 09/25/19 08:13 Dose: 100 mg Pantoprazole Sodium (Protonix Tab*) 40 mg PO BID [facility] Last Admin: 09/25/19 08:13 Dose: 40 mg Potassium Chloride (Klor Con Er Tab*) 20 meq PO BID [facility] Last Admin: 09/25/19 08:14 Dose: 20 meq Prednisone (Deltasone 20 Mg Tab) 20 mg PO DAILY [facility] Prochlorperazine Edisylate (Compazine Inj*) 2.5 mg IV Q6H PRN PRN Reason: NAUSEA/VOMITING Rosuvastatin Calcium (Crestor (Nf)) 40 mg PO QPM [facility] Last Admin: 09/24/19 18:41 Dose: 40 mg Vital Signs - 8 hr 09/25/19 09/25/19 11:00 13:12 Temperature 97.4 F Pulse Rate 70 68 Respiratory 16 18 Rate Blood Pressure 108/80 (mmHg) O2 Sat by Pulse 96 98 Oximetry Oxygen Devices in Use Now: Nasal Cannula Appearance: NAD, sitting on side of bed. Ears/Nose/Mouth/Throat: NL Teeth, Lips, Gums Neck: NL Appearance and Movements; NL JVP Respiratory: - - moderate air exchange, no rales. Mildly rhonchorous. Cardiovascular: NL Sounds; No Murmurs; No JVD Abdominal: NL Sounds; No Tenderness; No Distention Extremities: - - 1-2+ edema b/l Neurological: Alert and Oriented x 3 Nutrition: Taking PO's Result Diagrams: 09/23/19 07:22 09/25/19 04:49 Additional Lab and Data: Laboratory Results - last 24 hr 09/25/19 09/25/19 09/25/19 04:49 07:38 11:37 Sodium 134 L Potassium 3.8 Chloride 97 L Carbon Dioxide 32 Anion Gap 5 BUN 23 Creatinine 1.61 H Est GFR ( Amer) 39.0 Est GFR (Non-Af Amer) 32.2 BUN/Creatinine Ratio 14.3 Glucose 228 H POC Glucose (mg/dL) 90 196 H Calcium 8.2 L 09/25/19 09/25/19 16:40 19:28 Sodium Potassium Chloride Carbon Dioxide Anion Gap BUN Creatinine Est GFR ( Amer) Est GFR (Non-Af Amer) BUN/Creatinine Ratio Glucose POC Glucose (mg/dL) 249 H 172 H Calcium Microbiology and Other Data: Microbiology 09/22/19 15:20 Blood Venous Aerobic Blood Culture - Preliminary No Growth Day 3 09/22/19 15:20 Blood Venous Anaerobic Blood Culture - Preliminary No Growth Day 3 09/22/19 15:14 Blood Venous Aerobic Blood Culture - Preliminary No Growth Day 3 09/22/19 15:14 Blood Venous Anaerobic Blood Culture - Preliminary No Growth Day 3 09/23/19 15:40 Sputum Expectorated Gram Stain - Final 09/23/19 15:40 Sputum Expectorated Sputum Culture - Final Normal Danielle Assess/Plan/Problems-Billing Assessment: 63 yo female PMH severe systolic CHF (EF 15-20%), COPD, CAD, Afib(pradaxa), CKD III, IDDM, PE/DVT, ANNE(CPAP), obesity(BMI 36) p/w cough, SOB, wheezing a few days after grandchildren had URI. BNP >1300. Flu negative. Afebrile, no leukocytosis. - Patient Problems (1) URI (upper respiratory infection) Current Visit: Yes Status: Acute Code(s): J06.9 - ACUTE UPPER RESPIRATORY INFECTION, UNSPECIFIED SNOMED Code(s): 68737082 Comment: Grandchildren had URI symptoms for last 1 week. Influenza was negative. Suspect viral insult was the inciting event with brittle baseline given severe CHF, COPD (with some sub optimal inhaler regimen given allergy or refusal) Requested records from Dr. Bucio (still pending) and PCP (received). I and she suspect it is Dulera and specifically salmeterol (she tolerates sepearte flonase okay) that she is allergic too. Has never tried any other inhaler ( other then albuterol and duonebs) Get CXR PA/LAT in AM. (2) COPD (chronic obstructive pulmonary disease) Current Visit: Yes Status: Acute Code(s): J44.9 - CHRONIC OBSTRUCTIVE PULMONARY DISEASE, UNSPECIFIED SNOMED Code(s): 83131282 Comment: Continue duonebs. She agrees to trial a low dose steroids - will start prednisone 20mg. Fearful of effect on her blood glucose. Suspect it is Advair based on round purple description. Request records from Dr. Bucio Sputum with normal danielle. (3) Acute on chronic systolic heart failure Current Visit: No Status: Acute Code(s): I50.23 - ACUTE ON CHRONIC SYSTOLIC (CONGESTIVE) HEART FAILURE SNOMED Code(s): 796990033 Comment: Increase lasix to 60mg IV BID from 40mg BIV ID She has been referred to the heart failure clinic at [place] but will not be seen until the new year, maybe October. BNP >1300 on admission, will repeat tomorrow daily weights (standing scale only, no bed weights) continue strict io start fluid restriction of 1.8L (4) Atrial fibrillation Current Visit: No Status: Acute Code(s): I48.91 - UNSPECIFIED ATRIAL FIBRILLATION SNOMED Code(s): 37743807 Comment: In NSR. Continue metoprolol and pradaxa. (5) CKD (chronic kidney disease), stage III Current Visit: No Status: Acute Code(s): N18.3 - CHRONIC KIDNEY DISEASE, STAGE 3 (MODERATE) SNOMED Code(s): 799527416 Comment: Creatinine improvd to 1.61 from 1.9-2.0 on admission. BMP daily. (6) History of pulmonary embolism Current Visit: No Status: Acute Code(s): Z86.711 - PERSONAL HISTORY OF PULMONARY EMBOLISM SNOMED Code(s): 869209530 Comment: - Continue pradaxa 150 mg bid. Her CrCl is borderline and may need to go back down to 75mg BID if worsens again (7) Redness and swelling of lower leg Current Visit: No Status: Acute Code(s): M79.89 - OTHER SPECIFIED SOFT TISSUE DISORDERS; R23.8 - OTHER SKIN CHANGES SNOMED Code(s): 249020377 Comment: monitor, completed 11 days of clinda as an outpatient. (8) HTN (hypertension) Current Visit: No Status: Chronic Code(s): I10 - ESSENTIAL (PRIMARY) HYPERTENSION SNOMED Code(s): 67405820 Comment: BP under excellent control. Continue metoprolol XL 100mg BID, lasix. Home spironolactone 50mg was held on admission. (9) Moderate to severe pulmonary hypertension Current Visit: No Status: Chronic Code(s): I27.2 - OTHER SECONDARY PULMONARY HYPERTENSION * DO NOT USE * SNOMED Code(s): 16067197 (10) Severe tricuspid regurgitation Current Visit: No Status: Chronic Code(s): I07.1 - RHEUMATIC TRICUSPID INSUFFICIENCY SNOMED Code(s): 193841116 (11) DVT prophylaxis Current Visit: No Status: Acute Code(s): DFN8457 - SNOMED Code(s): 490677234 Comment: Pradaxa Status and Disposition: medicine, inpatient status.
[2019-09-25] MEDS: CMCS: Rosuvastatin (NF) 20 MG TAB PO SCH (17:14)
[2019-09-25] MEDS: Insulin GLARGINE(*) 1 UNITS UNIT SUBCUT SCH (21:10)
[2019-09-25] MEDS: Acetaminophen / Codeine* #3 (300 MG/30 MG) TAB PO PRN (21:16)
[2019-09-26] MEDS: Albuterol/Ipratropium NEB.SOL* Albuterol 2.5 MG/Ipratropium 0.5 MG 3 ML INH SCH ×3 (01:28→12:53)
[2019-09-26 06:43] LABS: C Reactive Protein 40.42 mg/L (<8.01); Calcium 8.4 mg/dL (8.6-10.3); EGFR African American 43.2 (>60); EGFR Non-African American 35.7 (>60); Potassium 4.5 mmol/L (3.5-5.0)
[2019-09-26] MEDS: Insulin LISPRO* 1 UNITS UNIT SUBCUT SCH ×4 (08:48→21:04)
[2019-09-26] MEDS: Furosemide IV* 10 MG/ML VIAL (40 MG) IV SCH ×2 (08:48→17:32)
[2019-09-26] MEDS: guaiFENesin/CODIENE 100mg/10mg 5 ML UDC PO PRN ×2 (08:49→21:05)
[2019-09-26] MEDS: Metoprolol Succinate XL TAB* 100 MG PO SCH ×2 (08:50→21:05)
[2019-09-26] MEDS: Aspirin EC TAB* 81 MG TAB.EC PO SCH (08:50)
[2019-09-26] MEDS: Pantoprazole TAB * 40 MG TAB PO SCH ×2 (08:50→21:06)
[2019-09-26] MEDS: Magnesium Oxide TAB* 400 MG PO SCH (08:50)
[2019-09-26] MEDS: Potassium Chlor TAB* 20 MEQ TAB.ER PO SCH ×2 (08:50→21:05)
[2019-09-26] MEDS: CMCS: Dabigatran CAP(NF) 150 MG CAP PO SCH ×2 (08:53→21:05)
[2019-09-26] MEDS ORDERED: Azithromycin TAB* 250 MG PO ONE (11:24)
[2019-09-26] MEDS ORDERED: Albuterol/Ipratropium NEB.SOL* Albuterol 2.5 MG/Ipratropium 0.5 MG 3 ML INH PRN (12:58)
--- NOTE | 2019-09-26 15:11 | PN ---
Subjective Date of Service: 09/26/19 Interval History: no acute events overnight but 2 issues with her CPAP not functioning properly and leading to increased respiratory distress. Also her room mate required fan blowing constantly and temperature turned down, Kinjal would cover her head with a blanket to get warmer. weight down 106.4 form 106.7. Per RN, these were both scale weights despite aide charting saying today was bed weight. [employer] improving while diuresing. Runny nose. open to flonase which she has used in the past. Has tolerated azithromycin without problem in the past Her [birth year] is [birth year] Objective Active Medications: Acetaminophen (Tylenol Tab*) 650 mg PO Q4H PRN PRN Reason: PAIN-MILD/TEMP >/= 100.4 Last Admin: 09/24/19 07:16 Dose: 650 mg Acetaminophen/Codeine Phosphate (Tylenol/Codeine 30 Mg Tab*) 1 tab PO Q6H PRN PRN Reason: PAIN - MODERATE Last Admin: 09/25/19 21:16 Dose: 1 tab Al Hydrox/Mg Hydrox/Simethicone (Maalox Plus*) 30 ml PO Q6H PRN PRN Reason: INDIGESTION Albuterol/Ipratropium (Duoneb (Albuterol 2.5 Mg/Ipratropium 0.5 Mg)) 1 neb INH Q4H PRN PRN Reason: SOB/WHEEZING Aspirin (Aspirin Ec Tab*) 81 mg PO QAM [facility] Last Admin: 09/26/19 08:50 Dose: 81 mg Azithromycin (Zithromax Tab*) 250 mg PO DAILY [facility] Benzonatate (Tessalon Cap*) 100 mg PO BID PRN PRN Reason: COUGH Dabigatran (Pradaxa Cap(Nf)) 150 mg PO BID [facility] Last Admin: 09/26/19 08:53 Dose: 150 mg Dextrose (Dextrose 50% Vial 50 Ml*) 25 ml IV PUSH .FOR FS < 60 - SS PRN PRN Reason: FS < 60 Docusate Sodium (Colace Cap*) 100 mg PO DAILY PRN PRN Reason: CONSTIPATION Last Admin: 09/23/19 02:09 Dose: 100 mg Docusate Sodium (Colace Cap*) 100 mg PO BEDTIME PRN PRN Reason: CONSTIPATION Furosemide (Lasix Iv*) 60 mg IV 0800,1700 [facility] Last Admin: 09/26/19 08:48 Dose: 60 mg Guaifenesin/Codeine Phosphate (Robitussin Ac 100mg/10mg In 5 Ml) 5 ml PO Q6H PRN PRN Reason: COUGH Last Admin: 09/26/19 08:49 Dose: 5 ml Insulin Glargine (Lantus(*)) 40 units SUBCUT BEDTIME [facility] Last Admin: 09/25/19 21:10 Dose: 40 units Insulin Human Lispro (Humalog*) 0 units SUBCUT ACHS [facility]; Protocol Last Admin: 09/26/19 12:17 Dose: 3 units Magnesium Oxide (Magox 400 Tab*) 400 mg PO QAM [facility] Last Admin: 09/26/19 08:50 Dose: 400 mg Metoprolol Succinate (Toprol Xl Tab*) 100 mg PO BID [facility] Last Admin: 09/26/19 08:50 Dose: 100 mg Pantoprazole Sodium (Protonix Tab*) 40 mg PO BID [facility] Last Admin: 09/26/19 08:50 Dose: 40 mg Potassium Chloride (Klor Con Er Tab*) 20 meq PO BID [facility] Last Admin: 09/26/19 08:50 Dose: 20 meq Prednisone (Deltasone 20 Mg Tab) 20 mg PO DAILY [facility] Last Admin: 09/26/19 08:50 Dose: 20 mg Prochlorperazine Edisylate (Compazine Inj*) 2.5 mg IV Q6H PRN PRN Reason: NAUSEA/VOMITING Rosuvastatin Calcium (Crestor (Nf)) 40 mg PO QPM [facility] Last Admin: 09/25/19 17:14 Dose: 40 mg Vital Signs - 8 hr 09/26/19 09/26/19 08:00 11:00 Pulse Rate 63 Respiratory 18 18 Rate Blood Pressure 111/61 (mmHg) O2 Sat by Pulse 98 Oximetry Oxygen Devices in Use Now: Nasal Cannula Appearance: NAD Ears/Nose/Mouth/Throat: NL Teeth, Lips, Gums Neck: NL Appearance and Movements; NL JVP Respiratory: - - moderate air exchange, slight expiratory wheeze. no rales. Cardiovascular: NL Sounds; No Murmurs; No JVD Extremities: - - 1-2+ dependent edema in b/l legs Neurological: Alert and Oriented x 3 Nutrition: Taking PO's Result Diagrams: 09/23/19 07:22 09/26/19 06:04 Additional Lab and Data: Laboratory Results - last 24 hr 09/25/19 09/25/19 09/26/19 16:40 19:28 06:04 Sodium 132 L Potassium 4.5 Chloride 95 L Carbon Dioxide 34 H Anion Gap 3 BUN 25 H Creatinine 1.47 H Est GFR ( Amer) 43.2 Est GFR (Non-Af Amer) 35.7 BUN/Creatinine Ratio 17.0 Glucose 320 H POC Glucose (mg/dL) 249 H 172 H Calcium 8.4 L C-Reactive Protein 40.42 H B-Natriuretic Peptide 09/26/19 09/26/19 09/26/19 06:04 07:40 11:46 Sodium Potassium Chloride Carbon Dioxide Anion Gap BUN Creatinine Est GFR ( Amer) Est GFR (Non-Af Amer) BUN/Creatinine Ratio Glucose POC Glucose (mg/dL) 286 H 174 H Calcium C-Reactive Protein B-Natriuretic Peptide 1246 H Microbiology and Other Data: Microbiology 09/22/19 15:20 Blood Venous Aerobic Blood Culture - Preliminary No Growth Day 4 09/22/19 15:20 Blood Venous Anaerobic Blood Culture - Preliminary No Growth Day 4 09/22/19 15:14 Blood Venous Aerobic Blood Culture - Preliminary No Growth Day 4 09/22/19 15:14 Blood Venous Anaerobic Blood Culture - Preliminary No Growth Day 4 09/23/19 15:40 Sputum Expectorated Gram Stain - Final 09/23/19 15:40 Sputum Expectorated Sputum Culture - Final Normal Emma Assess/Plan/Problems-Billing Assessment: 63 yo female PMH severe systolic CHF (EF 15-20%), COPD, CAD, Afib(pradaxa), CKD III, IDDM, PE/DVT, ANNE(CPAP), obesity(BMI 36) p/w cough, SOB, wheezing a few days after grandchildren had URI. BNP >1300. Flu negative. Afebrile, no leukocytosis. - Patient Problems (1) URI (upper respiratory infection) Current Visit: Yes Status: Acute Code(s): J06.9 - ACUTE UPPER RESPIRATORY INFECTION, UNSPECIFIED SNOMED Code(s): 35939803 Comment: Grandchildren had URI symptoms for last 1 week. Influenza was negative. Suspect viral insult was the inciting event with brittle baseline given severe CHF, COPD (with some sub optimal inhaler regimen given allergy or refusal) Requested records from Dr. Bucio (still pending) and PCP (received). I and she suspect it is Advair and specifically salmeterol (she tolerates seperate fluticasone in her flonase okay in past) that she is allergic too. Has never tried any other inhaler (other then albuterol and duonebs) CXR PA/LAT consistent with interstitial edema. (2) COPD (chronic obstructive pulmonary disease) Current Visit: Yes Status: Acute Code(s): J44.9 - CHRONIC OBSTRUCTIVE PULMONARY DISEASE, UNSPECIFIED SNOMED Code(s): 21862250 Comment: Continue duonebs. She agreed to trial a low dose steroids - continue prednisone 20mg from 09/25. Fearful of effect on her blood glucose. Suspect it is Advair based on round purple description. Request records from Dr. Bucio Sputum with normal emma. Continue duo-nebs. (3) Acute on chronic systolic heart failure Current Visit: No Status: Acute Code(s): I50.23 - ACUTE ON CHRONIC SYSTOLIC (CONGESTIVE) HEART FAILURE SNOMED Code(s): 499119170 Comment: Continue lasix at 60mg IV BID (home is 40mg po AM/60mg po PM). She has been referred to the heart failure clinic at [place] but will not be seen until the new year, maybe October. BNP >1300 on admission, improved to 1246 today daily weights (standing scale only, no bed weights) continue strict io continue fluid restriction of 1.8L (started this AM 09/26) (4) Atrial fibrillation Current Visit: No Status: Acute Code(s): I48.91 - UNSPECIFIED ATRIAL FIBRILLATION SNOMED Code(s): 52520346 Comment: In NSR. Continue metoprolol and pradaxa. (5) CKD (chronic kidney disease), stage III Current Visit: No Status: Acute Code(s): N18.3 - CHRONIC KIDNEY DISEASE, STAGE 3 (MODERATE) SNOMED Code(s): 031808050 Comment: Creatinine improved to 1.47 from 1.9-2.0 on admission. Better with diuresis. Her home spironolactone 50mg was held on admission and BPs on soft side. BMP daily. (6) History of pulmonary embolism Current Visit: No Status: Acute Code(s): Z86.711 - PERSONAL HISTORY OF PULMONARY EMBOLISM SNOMED Code(s): 992550087 Comment: - Continue pradaxa 150 mg bid. Her CrCl is borderline and may need to go back down to 75mg BID if worsens again (7) Redness and swelling of lower leg Current Visit: No Status: Acute Code(s): M79.89 - OTHER SPECIFIED SOFT TISSUE DISORDERS; R23.8 - OTHER SKIN CHANGES SNOMED Code(s): 383543361 Comment: monitor, completed 11 days of clinda as an outpatient. (8) HTN (hypertension) Current Visit: No Status: Chronic Code(s): I10 - ESSENTIAL (PRIMARY) HYPERTENSION SNOMED Code(s): 27058968 Comment: BP under excellent control. Continue metoprolol XL 100mg BID, lasix. Home spironolactone 50mg was held on admission. (9) Moderate to severe pulmonary hypertension Current Visit: No Status: Chronic Code(s): I27.2 - OTHER SECONDARY PULMONARY HYPERTENSION * DO NOT USE * SNOMED Code(s): 09693216 (10) Severe tricuspid regurgitation Current Visit: No Status: Chronic Code(s): I07.1 - RHEUMATIC TRICUSPID INSUFFICIENCY SNOMED Code(s): 672935708 (11) DVT prophylaxis Current Visit: No Status: Acute Code(s): JRW1825 - SNOMED Code(s): 974823516 Comment: Pradaxa Status and Disposition: medicine, inpatient status.
[2019-09-26] MEDS ORDERED: Insulin LISPRO* 1 UNITS UNIT SUBCUT ONE (17:30)
[2019-09-26] MEDS: Fluticasone NASAL SPRAY 50MCG* 16 gm SPRAY BTL BOTH NARES SCH (17:31)
[2019-09-26] MEDS: CMCS: Rosuvastatin (NF) 20 MG TAB PO SCH (17:32)
[2019-09-26] MEDS: Insulin GLARGINE(*) 1 UNITS UNIT SUBCUT SCH (21:04)
[2019-09-26] MEDS: Acetaminophen / Codeine* #3 (300 MG/30 MG) TAB PO PRN (21:09)
[2019-09-26] MEDS ORDERED: Dextrose 50% VIAL 50 ml IV PUSH PRN (23:46)
[2019-09-27 07:14] LABS: Anion Gap 6 mmol/L (2-11); BUN/Creatinine Ratio 22.6 (8-20); Blood Urea Nitrogen 31 mg/dL (6-24); CO2 Carbon Dioxide 36 mmol/L (22-32); Chloride 97 mmol/L (101-111); EGFR African American 46.8 (>60); EGFR Non-African American 38.7 (>60); Glucose 60 mg/dL (70-100); Potassium 3.9 mmol/L (3.5-5.0); Sodium 139 mmol/L (135-145)
[2019-09-27] MEDS: Insulin LISPRO* 1 UNITS UNIT SUBCUT SCH ×7 (07:54→21:01)
[2019-09-27] MEDS: Furosemide IV* 10 MG/ML VIAL (40 MG) IV SCH ×2 (08:05→17:32)
[2019-09-27] MEDS: guaiFENesin/CODIENE 100mg/10mg 5 ML UDC PO PRN ×2 (08:05→16:23)
[2019-09-27] MEDS: Metoprolol Succinate XL TAB* 100 MG PO SCH ×2 (08:06→20:57)
[2019-09-27] MEDS: Potassium Chlor TAB* 20 MEQ TAB.ER PO SCH ×2 (08:06→20:58)
[2019-09-27] MEDS: Fluticasone NASAL SPRAY 50MCG* 16 gm SPRAY BTL BOTH NARES SCH (08:06)
[2019-09-27] MEDS: Pantoprazole TAB * 40 MG TAB PO SCH ×2 (08:07→20:58)
[2019-09-27] MEDS: CMCS: Dabigatran CAP(NF) 150 MG CAP PO SCH ×2 (08:07→20:57)
[2019-09-27] MEDS: Azithromycin TAB* 250 MG PO SCH (08:07)
[2019-09-27] MEDS: Magnesium Oxide TAB* 400 MG PO SCH (08:07)
[2019-09-27] MEDS: Aspirin EC TAB* 81 MG TAB.EC PO SCH (08:07)
[2019-09-27 10:07] LABS: % Iron Saturation 8 % (15-55); Iron 33 ug/dL (50-212); Total Iron Binding Capacity 393 mcg/dL (250-450); Transferrin 281 mg/dL (203-362)
[2019-09-27 10:27] LABS: Ferritin 55.7 ng/mL (11-307)
[2019-09-27] MEDS: Spironolactone TAB* 25 MG PO SCH (10:47)
[2019-09-27] MEDS ORDERED: Iron Sucrose* 200 MG in NS 0.9% 100 ML* 100 ML IVPB ONE (14:00)
--- NOTE | 2019-09-27 16:51 | PN ---
Subjective Date of Service: 09/27/19 Interval History: Patient is still feeling very SOB. Patient is wheezing significantly. Patient has limited exercise tolerance. Patient is not sleeping well due to issues with her CPAP mask and latex allergy. Patient is also very bothered by having a roommate. Patient has a perisistent non-productive cough. Patient denies F/C, CP , N/V, abdominal pain, diarrhea, or other pain. Family History: Unchanged from Admission Social History: Unchanged from Admission Past Medical History: Unchanged from Admission Objective Active Medications: Acetaminophen (Tylenol Tab*) 650 mg PO Q4H PRN PRN Reason: PAIN-MILD/TEMP >/= 100.4 Last Admin: 09/24/19 07:16 Dose: 650 mg Acetaminophen/Codeine Phosphate (Tylenol/Codeine 30 Mg Tab*) 1 tab PO Q6H PRN PRN Reason: PAIN - MODERATE Last Admin: 09/26/19 21:09 Dose: 1 tab Al Hydrox/Mg Hydrox/Simethicone (Maalox Plus*) 30 ml PO Q6H PRN PRN Reason: INDIGESTION Albuterol/Ipratropium (Duoneb (Albuterol 2.5 Mg/Ipratropium 0.5 Mg)) 1 neb INH Q4H PRN PRN Reason: SOB/WHEEZING Last Admin: 09/27/19 15:40 Dose: 1 neb Aspirin (Aspirin Ec Tab*) 81 mg PO QAM [facility] Last Admin: 09/27/19 08:07 Dose: 81 mg Azithromycin (Zithromax Tab*) 250 mg PO DAILY [facility] Last Admin: 09/27/19 08:07 Dose: 250 mg Benzonatate (Tessalon Cap*) 100 mg PO BID PRN PRN Reason: COUGH Dabigatran (Pradaxa Cap(Nf)) 150 mg PO BID [facility] Last Admin: 09/27/19 08:07 Dose: 150 mg Dextrose (Dextrose 50% Vial 50 Ml*) 25 ml IV PUSH .FOR FS < 60 - SS PRN PRN Reason: FS < 60 Docusate Sodium (Colace Cap*) 100 mg PO DAILY PRN PRN Reason: CONSTIPATION Last Admin: 09/23/19 02:09 Dose: 100 mg Docusate Sodium (Colace Cap*) 100 mg PO BEDTIME PRN PRN Reason: CONSTIPATION Fluticasone Propionate (Flonase Nasal [place] 50mcg*) 2 spray BOTH NARES DAILY [facility] Last Admin: 09/27/19 08:06 Dose: 2 spray Furosemide (Lasix Iv*) 60 mg IV 0800,1700 [facility] Last Admin: 09/27/19 08:05 Dose: 60 mg Guaifenesin/Codeine Phosphate (Robitussin Ac 100mg/10mg In 5 Ml) 5 ml PO Q6H PRN PRN Reason: COUGH Last Admin: 09/27/19 16:23 Dose: 5 ml Insulin Glargine (Lantus(*)) 40 units SUBCUT BEDTIME [facility] Last Admin: 09/26/19 21:04 Dose: 40 units Insulin Human Lispro (Humalog*) 0 units SUBCUT ACHS [facility]; Protocol Last Admin: 09/27/19 13:14 Dose: 2 units Insulin Human Lispro (Humalog*) 7 units SUBCUT AC [facility] Last Admin: 09/27/19 13:14 Dose: 7 units Magnesium Oxide (Magox 400 Tab*) [facility] Last Admin: 09/27/19 08:07 Dose: 400 mg Metoprolol Succinate (Toprol Xl Tab*) 100 mg PO BID [facility] Last Admin: 09/27/19 08:06 Dose: 100 mg Pantoprazole Sodium (Protonix Tab*) 40 mg PO BID [facility] Last Admin: 09/27/19 08:07 Dose: 40 mg Potassium Chloride (Klor Con Er Tab*) 20 meq PO BID [facility] Last Admin: 09/27/19 08:06 Dose: 20 meq Prednisone (Deltasone 20 Mg Tab) 20 mg PO DAILY [facility] Last Admin: 09/27/19 08:07 Dose: 20 mg Prochlorperazine Edisylate (Compazine Inj*) 2.5 mg IV Q6H PRN PRN Reason: NAUSEA/VOMITING Rosuvastatin Calcium (Crestor (Nf)) 40 mg PO QPM [facility] Last Admin: 09/26/19 17:32 Dose: 40 mg Spironolactone (Aldactone Tab*) 50 mg PO QAM [facility] Last Admin: 09/27/19 10:47 Dose: 50 mg Vital Signs - 8 hr 09/27/19 09/27/19 11:00 15:41 Temperature 97.1 F Pulse Rate 63 65 Respiratory 20 22 Rate Blood Pressure 103/78 (mmHg) O2 Sat by Pulse 100 98 Oximetry Oxygen Devices in Use Now: Nasal Cannula Appearance: Patient is a 64yo female who appears stated age and is sitting in the bed in NAD. Eyes: No Scleral Icterus, PERRLA Ears/Nose/Mouth/Throat: NL Teeth, Lips, Gums, Clear Oropharnyx, Mucous Membranes Moist Neck: NL Appearance and Movements; NL JVP, Trachea Midline Respiratory: Symmetrical Chest Expansion and Respiratory Effort, - - Expiratory wheezing throughout, Fine Rhonchi throughout. Cardiovascular: NL Sounds; No Murmurs; No JVD, RRR, No Edema - 2+ B/L LE edema. Abdominal: NL Sounds; No Tenderness; No Distention, No Hepatosplenomegaly Lymphatic: No Cervical Adenopathy Extremities: No Clubbing, Cyanosis Skin: No Rash or Ulcers, No Nodules or Sclerosis Neurological: Alert and Oriented x 3, NL Sensation, NL Muscle Strength and Tone , - - CN II-XII intact. Result Diagrams: 09/23/19 07:22 09/27/19 06:50 Additional Lab and Data: Laboratory Results - last 24 hr Microbiology and Other Data: Microbiology 09/22/19 15:20 Blood Venous Aerobic Blood Culture - Preliminary No Growth Day 4 09/22/19 15:20 Blood Venous Anaerobic Blood Culture - Preliminary No Growth Day 4 09/22/19 15:14 Blood Venous Aerobic Blood Culture - Preliminary No Growth Day 4 09/22/19 15:14 Blood Venous Anaerobic Blood Culture - Preliminary No Growth Day 4 09/23/19 15:40 Sputum Expectorated Gram Stain - Final 09/23/19 15:40 Sputum Expectorated Sputum Culture - Final Normal Danielle Assess/Plan/Problems-Billing Assessment: 63 yo female PMH severe systolic CHF (EF 15-20%), COPD, CAD, Afib(pradaxa), CKD III, IDDM, PE/DVT, ANNE(CPAP), obesity(BMI 36) p/w cough, SOB, wheezing a few days after grandchildren had URI. BNP >1300. Flu negative. Afebrile, no leukocytosis. Improving on treatment for CHF and COPD exacerbation. - Patient Problems (1) COPD (chronic obstructive pulmonary disease) Current Visit: Yes Status: Acute Code(s): J44.9 - CHRONIC OBSTRUCTIVE PULMONARY DISEASE, UNSPECIFIED SNOMED Code(s): 91213996 Comment: - Continue duonebs. She agreed to trial a low dose steroids - - Continue prednisone 20mg from 09/25. - Sputum with normal danielle. - Still very SOB and wheezing - Work with outpatient extension service advisor to optimize inhaler regimen. (2) URI (upper respiratory infection) Current Visit: Yes Status: Acute Code(s): J06.9 - ACUTE UPPER RESPIRATORY INFECTION, UNSPECIFIED SNOMED Code(s): 70733112 Comment: - Grandchildren had URI symptoms for last 1 week. - Influenza was negative. - Suspect viral insult was the inciting event with brittle baseline given severe CHF, COPD - Requested records from Dr. Bucio (still pending) and PCP (received). - Previous poor reaction to was can be assumed to be Advair - Consider Singulair when no longer getting duoneb - Might benefit from triple inhaler therapy. CXR PA/LAT consistent with interstitial edema. (3) Acute on chronic systolic heart failure Current Visit: No Status: Acute Code(s): I50.23 - ACUTE ON CHRONIC SYSTOLIC (CONGESTIVE) HEART FAILURE SNOMED Code(s): 319004857 Comment: - Continue lasix at 60mg IV BID (home is 40mg po AM/60mg po PM). - She has been referred to the heart failure clinic at [place] but will not be seen until the new year, maybe October. - Strict I/O and daily weights - Had [place] and [place] before admission (Possibly contributes to acute decompensation - Continue fluid restriction of 1.8L (started this AM 09/26) - Iron Deficiency without OFELIA, supplement IV while inpatient (Iron Sucrose 200mg day 09/24) to reduce readmission and increase functional capacity. (4) Atrial fibrillation Current Visit: No Status: Acute Code(s): I48.91 - UNSPECIFIED ATRIAL FIBRILLATION SNOMED Code(s): 06060914 Comment: - In NSR. Continue metoprolol and pradaxa. (5) CKD (chronic kidney disease), stage III Current Visit: No Status: Acute Code(s): N18.3 - CHRONIC KIDNEY DISEASE, STAGE 3 (MODERATE) SNOMED Code(s): 038695879 Comment: - Cret continues to improve with diuresis - Daily BMP - Resume Spironolactone (6) Diabetes Current Visit: No Status: Acute Code(s): E11.9 - TYPE 2 DIABETES MELLITUS WITHOUT COMPLICATIONS SNOMED Code(s): 43752024 Comment: - DM II, very poor control with steroids - Increase to 12u mealtime insulin with SSI - 40u Lantus daily (Controlled pre-prandial BG) (7) History of pulmonary embolism Current Visit: No Status: Acute Code(s): Z86.711 - PERSONAL HISTORY OF PULMONARY EMBOLISM SNOMED Code(s): 359132084 Comment: - Continue pradaxa 150 mg bid. Her CrCl is borderline and may need to go back down to 75mg BID if worsens again (8) ICD (implantable cardioverter-defibrillator) in place Current Visit: No Status: Chronic Code(s): Z95.810 - PRESENCE OF AUTOMATIC ( IMPLANTABLE) CARDIAC DEFIBRILLATOR SNOMED Code(s): 027482322 Comment: - With NSVT and EF <20% (9) DVT prophylaxis Current Visit: No Status: Acute Code(s): MSR4957 - SNOMED Code(s): 013811803 Comment: -Pradaxa Status and Disposition: medicine, inpatient status. Slow Improvement.
[2019-09-27] MEDS: CMCS: Rosuvastatin (NF) 20 MG TAB PO SCH (17:32)
[2019-09-27] MEDS: Acetaminophen / Codeine* #3 (300 MG/30 MG) TAB PO PRN (20:58)
[2019-09-27] MEDS: Insulin GLARGINE(*) 1 UNITS UNIT SUBCUT SCH (21:01)
[2019-09-28 06:44] LABS: ABS Lymphocytes 1.1 10^3/ul (1.0-4.8); ABS Monocytes 0.7 10^3/ul (0-0.8); ABS Neutrophils 6.8 10^3/ul (1.5-7.7); Eosinophil % 0.1 %; Hematocrit 44 % (35-47); Hemoglobin 14.1 g/dL (12.0-16.0); Lymphocyte % 12.8 %; Mean Corpuscular HGB Conc 32 g/dL (31-36); Mean Corpuscular Hemoglobin 25 pg (27-31); Mean Corpuscular Volume 77 fL (80-97); Mean Platelet Volume 8.4 fL (7.4-10.4); Nucleated Red Blood Cells % 0.1; Platelet Count 204 10^3/uL (150-450); Red Blood Count 5.75 10^6 /uL (3.70-4.87); Red Cell Distribution Width 22 % (10-15); White Blood Count 8.7 10^3/uL (3.5-10.8)
[2019-09-28 07:07] LABS: EGFR African American 49.3 (>60); EGFR Non-African American 40.7 (>60); Magnesium 2.7 mg/dL (1.9-2.7); Potassium 3.7 mmol/L (3.5-5.0)
[2019-09-28] MEDS: Insulin LISPRO* 1 UNITS UNIT SUBCUT SCH ×7 (07:50→21:46)
[2019-09-28] MEDS: CMCS: Dabigatran CAP(NF) 150 MG CAP PO SCH ×2 (08:46→21:45)
[2019-09-28] MEDS: Magnesium Oxide TAB* 400 MG PO SCH (08:47)
[2019-09-28] MEDS: Azithromycin TAB* 250 MG PO SCH (08:47)
[2019-09-28] MEDS: Aspirin EC TAB* 81 MG TAB.EC PO SCH (08:47)
[2019-09-28] MEDS: Pantoprazole TAB * 40 MG TAB PO SCH ×2 (08:47→21:45)
[2019-09-28] MEDS: Potassium Chlor TAB* 20 MEQ TAB.ER PO SCH ×2 (08:47→21:44)
[2019-09-28] MEDS: Fluticasone NASAL SPRAY 50MCG* 16 gm SPRAY BTL BOTH NARES SCH (08:48)
[2019-09-28] MEDS: Furosemide IV* 10 MG/ML VIAL (40 MG) IV SCH (09:08)
[2019-09-28] MEDS: Spironolactone TAB* 25 MG PO SCH (09:15)
[2019-09-28] MEDS: Iron Sucrose* 200 MG in NS 0.9% 100 ML* 100 ML IVPB SCH (09:15)
[2019-09-28] MEDS: Metoprolol Succinate XL TAB* 100 MG PO SCH ×2 (09:15→21:45)
--- NOTE | 2019-09-28 15:11 | PN ---
Subjective Date of Service: 09/28/19 Interval History: Patient is feeling somewhat OK today, just feels lethargic from her hypoglycemia this AM. Patient states her breathing is better, but is still very limiting. Patient denies F/C, N/V, abdominal pain, dysuria, or other pain. Family History: Unchanged from Admission Social History: Unchanged from Admission Past Medical History: Unchanged from Admission Objective Active Medications: Acetaminophen (Tylenol Tab*) 650 mg PO Q4H PRN PRN Reason: PAIN-MILD/TEMP >/= 100.4 Last Admin: 09/24/19 07:16 Dose: 650 mg Acetaminophen/Codeine Phosphate (Tylenol/Codeine 30 Mg Tab*) 1 tab PO Q6H PRN PRN Reason: PAIN - MODERATE Last Admin: 09/27/19 20:58 Dose: 1 tab Al Hydrox/Mg Hydrox/Simethicone (Maalox Plus*) 30 ml PO Q6H PRN PRN Reason: INDIGESTION Albuterol/Ipratropium (Duoneb (Albuterol 2.5 Mg/Ipratropium 0.5 Mg)) 1 neb INH Q4H PRN PRN Reason: SOB/WHEEZING Last Admin: 09/27/19 15:40 Dose: 1 neb [facility]ir[facility] ([facility]in Ec Tab*) [facility] Last Admin: 09/28/19 08:47 Dose: 81 mg Azithromycin (Zithromax Tab*) 250 mg PO DAILY [facility] Stop: 09/30/19 09:01 Last Admin: 09/28/19 08:47 Dose: 250 mg Benzonatate (Tessalon Cap*) 100 mg PO BID PRN PRN Reason: COUGH Dabigatran (Pradaxa Cap(Nf)) 150 mg PO BID [facility] Last Admin: 09/28/19 08:46 Dose: 150 mg Dextrose (Dextrose 50% Vial 50 Ml*) 25 ml IV PUSH .FOR FS < 60 - SS PRN PRN Reason: FS < 60 Docusate Sodium (Colace Cap*) 100 mg PO DAILY PRN PRN Reason: CONSTIPATION Last Admin: 09/23/19 02:09 Dose: 100 mg Docusate Sodium (Colace Cap*) 100 mg PO BEDTIME PRN PRN Reason: CONSTIPATION Last Admin: 09/27/19 20:58 Dose: 100 mg Fluticasone Propionate (Flonase Nasal [place] 50mcg*) 2 spray BOTH NARES DAILY [facility] Last Admin: 09/28/19 08:48 Dose: 2 spray Furosemide (Lasix Tab*) 40 mg PO DAILY [facility] Furosemide (Lasix Tab*) 60 mg PO 1700 [facility] Guaifenesin/Codeine Phosphate (Robitussin Ac 100mg/10mg In 5 Ml) 5 ml PO Q6H PRN PRN Reason: COUGH Last Admin: 09/27/19 16:23 Dose: 5 ml Iron Sucrose 200 mg/ Sodium (Chloride) 110 mls @ 110 mls/hr IVPB DAILY [facility] Stop: 10/01/19 09:59 Last Admin: 09/28/19 09:15 Dose: 110 mls/hr Insulin Glargine (Lantus(*)) 30 units SUBCUT BEDTIME [facility] Insulin Human Lispro (Humalog*) 0 units SUBCUT ACHS [facility]; Protocol Last Admin: 09/28/19 12:49 Dose: 12 units Insulin Human Lispro (Humalog*) 12 units SUBCUT AC [facility] Magnesium Oxide (Magox 400 Tab*) 400 mg PO QAM [facility] Last Admin: 09/28/19 08:47 Dose: 400 mg Metoprolol Succinate (Toprol Xl Tab*) 100 mg PO BID [facility] Last Admin: 09/28/19 09:15 Dose: 100 mg Pantoprazole Sodium (Protonix Tab*) 40 mg PO BID [facility] Last Admin: 09/28/19 08:47 Dose: 40 mg Potassium Chloride (Klor Con Er Tab*) 20 meq PO BID [facility] Last Admin: 09/28/19 08:47 Dose: 20 meq Prednisone (Deltasone 20 Mg Tab) 20 mg PO DAILY [facility] Stop: 09/29/19 09:01 Last Admin: 09/28/19 08:47 Dose: 20 mg Prochlorperazine Edisylate (Compazine Inj*) 2.5 mg IV Q6H PRN PRN Reason: NAUSEA/VOMITING Rosuvastatin Calcium (Crestor (Nf)) 40 mg PO QPM [facility] Last Admin: 09/27/19 17:32 Dose: 40 mg Spironolactone (Aldactone Tab*) 50 mg PO QAM [facility] Last Admin: 09/28/19 09:15 Dose: 50 mg Vital Signs - 8 hr 09/28/19 09/28/19 09/28/19 07:39 08:00 08:45 Pulse Rate 98 Respiratory 18 20 Rate Blood Pressure 94/62 108/63 (mmHg) O2 Sat by Pulse 96 Oximetry 09/28/19 11:35 Pulse Rate 60 Respiratory 20 Rate Blood Pressure 84/41 (mmHg) O2 Sat by Pulse 100 Oximetry Oxygen Devices in Use Now: Nasal Cannula Appearance: Patient is a 64yo female who appears stated age and is sitting in the bed in [facility]. Eyes: No Scleral Icterus, PERRLA Ears/Nose/Mouth/Throat: NL Teeth, Lips, Gums, Clear Oropharnyx, Mucous Membranes Moist Neck: NL Appearance and Movements; NL JVP, Trachea Midline Respiratory: Symmetrical Chest Expansion and Respiratory Effort, - - Expiratory wheezing throughout, improved from previous exam. Cardiovascular: NL Sounds; No Murmurs; No JVD, RRR, - - 2+ B/L LE edema. Abdominal: NL Sounds; No Tenderness; No Distention, No Hepatosplenomegaly Lymphatic: No Cervical Adenopathy Extremities: No Clubbing, Cyanosis Skin: No Rash or Ulcers, No Nodules or Sclerosis Neurological: Alert and Oriented x 3, NL Sensation, NL Muscle Strength and Tone , - - CN II-XII intact. Result Diagrams: 09/28/19 05:50 09/28/19 05:50 Additional Lab and Data: Laboratory Results - last 24 hr Microbiology and Other Data: Microbiology 09/22/19 15:20 Blood Venous Aerobic Blood Culture - Preliminary No Growth Day 4 09/22/19 15:20 Blood Venous Anaerobic Blood Culture - Preliminary No Growth Day 4 09/22/19 15:14 Blood Venous Aerobic Blood Culture - Preliminary No Growth Day 4 09/22/19 15:14 Blood Venous Anaerobic Blood Culture - Preliminary No Growth Day 4 09/23/19 15:40 Sputum Expectorated Gram Stain - Final 09/23/19 15:40 Sputum Expectorated Sputum Culture - Final Normal Danielle Assess/Plan/Problems-Billing Assessment: 63 yo female PMH severe systolic CHF (EF 15-20%), COPD, CAD, Afib(pradaxa), CKD III, IDDM, PE/DVT, ANNE(CPAP), obesity(BMI 36) p/w cough, SOB, wheezing a few days after grandchildren had URI. BNP >1300. Flu negative. Afebrile, no leukocytosis. Improving on treatment for CHF and COPD exacerbation. - Patient Problems (1) COPD (chronic obstructive pulmonary disease) Current Visit: Yes Status: Acute Code(s): J44.9 - CHRONIC OBSTRUCTIVE PULMONARY DISEASE, UNSPECIFIED SNOMED Code(s): 85590003 Comment: - Continue duonebs. She agreed to trial a low dose steroids - - Continue prednisone 20mg from 09/25. Plan to stop on 09/29 - Sputum with normal danielle. - Improving SOB and Wheezing. - Work with outpatient bowling ball patcher to optimize inhaler regimen. (2) URI (upper respiratory infection) Current Visit: Yes Status: Acute Code(s): J06.9 - ACUTE UPPER RESPIRATORY INFECTION, UNSPECIFIED SNOMED Code(s): 81770499 Comment: - Grandchildren had URI symptoms for last 1 week. - Influenza was negative. - Suspect viral insult was the inciting event with brittle baseline given severe CHF, COPD - Requested records from Dr. Bucio (still pending) and PCP (received). - Previous poor reaction to was can be assumed to be Advair - Consider Singulair when no longer getting duoneb - Might benefit from triple inhaler therapy. (3) Acute on chronic systolic heart failure Current Visit: No Status: Acute Code(s): I50.23 - ACUTE ON CHRONIC SYSTOLIC (CONGESTIVE) HEART FAILURE SNOMED Code(s): 108675547 Comment: - With Tachycardia and hypotension, will change diuretics to home dose. - She has been referred to the heart failure clinic at [place] but will not be seen until the new year, maybe October. - Strict I/O and daily weights - Had [place] and [place] before admission (Possibly contributes to acute decompensation - Continue fluid restriction of 1.8L (started 09/26) - Iron Deficiency without OFELIA, supplement IV while inpatient (Iron Sucrose 200mg day 10/25) to reduce readmission and increase functional capacity. (4) Atrial fibrillation Current Visit: No Status: Acute Code(s): I48.91 - UNSPECIFIED ATRIAL FIBRILLATION SNOMED Code(s): 14128638 Comment: - In NSR. Continue metoprolol and pradaxa. (5) CKD (chronic kidney disease), stage III Current Visit: No Status: Acute Code(s): N18.3 - CHRONIC KIDNEY DISEASE, STAGE 3 (MODERATE) SNOMED Code(s): 267303133 Comment: - Cret continues to improve with diuresis - Daily BMP - Resume Spironolactone (6) Diabetes Current Visit: No Status: Acute Code(s): E11.9 - TYPE 2 DIABETES MELLITUS WITHOUT COMPLICATIONS SNOMED Code(s): 54596182 Comment: - DM II, very poor control with steroids - Increase to 12u mealtime insulin with SSI - 30u Lantus daily, Profound hypoglycemia overnight. (7) History of pulmonary embolism Current Visit: No Status: Acute Code(s): Z86.711 - PERSONAL HISTORY OF PULMONARY EMBOLISM SNOMED Code(s): 450741134 Comment: - Continue pradaxa 150 mg bid. (8) ICD (implantable cardioverter-defibrillator) in place Current Visit: No Status: Chronic Code(s): Z95.810 - PRESENCE OF AUTOMATIC ( IMPLANTABLE) CARDIAC DEFIBRILLATOR SNOMED Code(s): 842462679 Comment: - With NSVT and EF <20% (9) DVT prophylaxis Current Visit: No Status: Acute Code(s): GVN6406 - SNOMED Code(s): 453654465 Comment: -Pradaxa Status and Disposition: medicine, inpatient status. Slow Improvement. Hopeful D/C Wednesday.
[2019-09-28] MEDS: Furosemide TAB* 20 MG PO SCH (18:17)
[2019-09-28] MEDS: CMCS: Rosuvastatin (NF) 20 MG TAB PO SCH (18:17)
[2019-09-28] MEDS: Insulin GLARGINE(*) 1 UNITS UNIT SUBCUT SCH (21:46)
[2019-09-28] MEDS: Acetaminophen TAB* 325 MG PO PRN (21:54)
[2019-09-28] MEDS: guaiFENesin/CODIENE 100mg/10mg 5 ML UDC PO PRN (21:55)
[2019-09-29 07:13] LABS: Calcium 8.9 mg/dL (8.6-10.3); EGFR African American 45.7 (>60); EGFR Non-African American 37.7 (>60); Magnesium 2.5 mg/dL (1.9-2.7); Potassium 4.3 mmol/L (3.5-5.0)
[2019-09-29] MEDS: Insulin LISPRO* 1 UNITS UNIT SUBCUT SCH ×7 (08:36→21:56)
[2019-09-29] MEDS: Azithromycin TAB* 250 MG PO SCH (08:39)
[2019-09-29] MEDS: Potassium Chlor TAB* 20 MEQ TAB.ER PO SCH ×2 (08:39→21:57)
[2019-09-29] MEDS: Aspirin EC TAB* 81 MG TAB.EC PO SCH (08:39)
[2019-09-29] MEDS: Magnesium Oxide TAB* 400 MG PO SCH (08:39)
[2019-09-29] MEDS: Pantoprazole TAB * 40 MG TAB PO SCH ×2 (08:39→21:58)
[2019-09-29] MEDS: Metoprolol Succinate XL TAB* 100 MG PO SCH ×2 (08:39→21:58)
[2019-09-29] MEDS: CMCS: Dabigatran CAP(NF) 150 MG CAP PO SCH ×2 (10:12→21:57)
[2019-09-29] MEDS: guaiFENesin/CODIENE 100mg/10mg 5 ML UDC PO PRN ×2 (10:13→19:31)
[2019-09-29] MEDS: Spironolactone TAB* 25 MG PO SCH (10:13)
[2019-09-29] MEDS: Iron Sucrose* 200 MG in NS 0.9% 100 ML* 100 ML IVPB SCH (10:13)
[2019-09-29] MEDS: Fluticasone NASAL SPRAY 50MCG* 16 gm SPRAY BTL BOTH NARES SCH (10:13)
[2019-09-29] MEDS: Furosemide TAB* 40 MG PO SCH (10:13)
--- NOTE | 2019-09-29 14:30 | PN ---
Subjective Date of Service: 09/29/19 Interval History: Patient is feeling like she has more energy than yesterday and has had no symptomatic hypoglycemia. Patient states she is still SOB with activity and is not at her baseline. Patient is still coughing and occasionally has CP with this. Patient is denying palpitations, dizziness, abdominal pain, diarrhea, dysuria, or other pain. Family History: Unchanged from Admission Social History: Unchanged from Admission Past Medical History: Unchanged from Admission Objective Active Medications: Acetaminophen (Tylenol Tab*) 650 mg PO Q4H PRN PRN Reason: PAIN-MILD/TEMP >/= 100.4 Last Admin: 09/28/19 21:54 Dose: 650 mg Acetaminophen/Codeine Phosphate (Tylenol/Codeine 30 Mg Tab*) 1 tab PO Q6H PRN PRN Reason: PAIN - MODERATE Last Admin: 09/27/19 20:58 Dose: 1 tab Al Hydrox/Mg Hydrox/Simethicone (Maalox Plus*) 30 ml PO Q6H PRN PRN Reason: INDIGESTION Albuterol/Ipratropium (Duoneb (Albuterol 2.5 Mg/Ipratropium 0.5 Mg)) 1 neb INH Q4H PRN PRN Reason: SOB/WHEEZING Last Admin: 09/27/19 15:40 Dose: 1 neb Aspirin (Aspirin Ec Tab*) 81 mg PO QAM [facility] Last Admin: 09/29/19 08:39 Dose: 81 mg Azithromycin (Zithromax Tab*) 250 mg PO DAILY [facility] Stop: 09/30/19 09:01 Last Admin: 09/29/19 08:39 Dose: 250 mg Benzonatate (Tessalon Cap*) 100 mg PO BID PRN PRN Reason: COUGH Dabigatran (Pradaxa Cap(Nf)) 150 mg PO BID [facility] Last Admin: 09/29/19 10:12 Dose: 150 mg Dextrose (Dextrose 50% Vial 50 Ml*) 25 ml IV PUSH .FOR FS < 60 - SS PRN PRN Reason: FS < 60 Docusate Sodium (Colace Cap*) 100 mg PO DAILY PRN PRN Reason: CONSTIPATION Last Admin: 09/23/19 02:09 Dose: 100 mg Docusate Sodium (Colace Cap*) 100 mg PO BEDTIME PRN PRN Reason: CONSTIPATION Last Admin: 09/27/19 20:58 Dose: 100 mg Fluticasone Propionate (Flonase Nasal [place] 50mcg*) 2 spray BOTH NARES DAILY [facility] Last Admin: 09/29/19 10:13 Dose: 2 spray Furosemide (Lasix Tab*) 40 mg PO DAILY [facility] Last Admin: 09/29/19 10:13 Dose: 40 mg Furosemide (Lasix Tab*) 60 mg PO 1700 [facility] Last Admin: 09/28/19 18:17 Dose: 60 mg Guaifenesin/Codeine Phosphate (Robitussin Ac 100mg/10mg In 5 Ml) 5 ml PO Q6H PRN PRN Reason: COUGH Last Admin: 09/29/19 10:13 Dose: 5 ml Iron Sucrose 200 mg/ Sodium (Chloride) 110 mls @ 110 mls/hr IVPB DAILY [facility] Stop: 10/01/19 09:59 Last Admin: 09/29/19 10:13 Dose: 110 mls/hr Insulin Glargine (Lantus(*)) 30 units SUBCUT BEDTIME [facility] Last Admin: 09/28/19 21:46 Dose: 30 unit Insulin Human Lispro (Humalog*) 0 units SUBCUT ACHS [facility]; Protocol Last Admin: 09/29/19 11:26 Dose: Not Given Insulin Human Lispro (Humalog*) 12 units SUBCUT AC [facility] Last Admin: 09/29/19 13:38 Dose: Not Given Magnesium Oxide (Magox 400 Tab*) 400 mg PO QAM [facility] Last Admin: 09/29/19 08:39 Dose: 400 mg Metoprolol Succinate (Toprol Xl Tab*) 100 mg PO BID [facility] Last Admin: 09/29/19 08:39 Dose: 100 mg Pantoprazole Sodium (Protonix Tab*) 40 mg PO BID [facility] Last Admin: 09/29/19 08:39 Dose: 40 mg Potassium Chloride (Klor Con Er Tab*) 20 meq PO BID [facility] Last Admin: 09/29/19 08:39 Dose: 20 meq Prochlorperazine Edisylate (Compazine Inj*) 2.5 mg IV Q6H PRN PRN Reason: NAUSEA/VOMITING Rosuvastatin Calcium (Crestor (Nf)) 40 mg PO QPM [facility] Last Admin: 09/28/19 18:17 Dose: 40 mg Spironolactone (Aldactone Tab*) 50 mg PO QAM [facility] Last Admin: 09/29/19 10:13 Dose: 50 mg Vital Signs - 8 hr 09/29/19 09/29/19 09/29/19 07:38 08:27 10:03 Temperature 97.3 F Pulse Rate 65 67 Respiratory 20 20 20 Rate Blood Pressure 98/53 120/52 (mmHg) O2 Sat by Pulse 100 97 Oximetry 09/29/19 11:46 Temperature 97.4 F Pulse Rate 67 Respiratory 20 Rate Blood Pressure 117/69 (mmHg) O2 Sat by Pulse 99 Oximetry Oxygen Devices in Use Now: Nasal Cannula Appearance: Patient is a 64yo female who appears stated age and is sitting in the bed in NAD. Eyes: No Scleral Icterus, PERRLA Ears/Nose/Mouth/Throat: NL Teeth, Lips, Gums, Clear Oropharnyx, Mucous Membranes Moist Neck: NL Appearance and Movements; NL JVP, Trachea Midline Respiratory: Symmetrical Chest Expansion and Respiratory Effort, Clear to Auscultation Cardiovascular: NL Sounds; No Murmurs; No JVD, RRR Abdominal: NL Sounds; No Tenderness; No Distention, No Hepatosplenomegaly Lymphatic: No Cervical Adenopathy Extremities: No Clubbing, Cyanosis, - - 2+ Pitting Edema in B/L LE Skin: No Rash or Ulcers, No Nodules or Sclerosis Neurological: Alert and Oriented x 3, NL Sensation, NL Muscle Strength and Tone , - - CN II-XII intact. Result Diagrams: 09/28/19 05:50 09/29/19 06:27 Additional Lab and Data: Laboratory Results - last 24 hr Microbiology and Other Data: Microbiology 09/22/19 15:20 Blood Venous Aerobic Blood Culture - Preliminary No Growth Day 4 09/22/19 15:20 Blood Venous Anaerobic Blood Culture - Preliminary No Growth Day 4 09/22/19 15:14 Blood Venous Aerobic Blood Culture - Preliminary No Growth Day 4 09/22/19 15:14 Blood Venous Anaerobic Blood Culture - Preliminary No Growth Day 4 09/23/19 15:40 Sputum Expectorated Gram Stain - Final 09/23/19 15:40 Sputum Expectorated Sputum Culture - Final Normal Danielle Assess/Plan/Problems-Billing Assessment: 63 yo female PMH severe systolic CHF (EF 15-20%), COPD, CAD, Afib(pradaxa), CKD III, IDDM, PE/DVT, ANNE(CPAP), obesity(BMI 36) p/w cough, SOB, wheezing a few days after grandchildren had URI. BNP >1300. Flu negative. Afebrile, no leukocytosis. Improving on treatment for CHF and COPD exacerbation. - Patient Problems (1) COPD (chronic obstructive pulmonary disease) Current Visit: Yes Status: Acute Code(s): J44.9 - CHRONIC OBSTRUCTIVE PULMONARY DISEASE, UNSPECIFIED SNOMED Code(s): 57593877 Comment: - Continue duonebs. She agreed to trial a low dose steroids - - Finished Prednisone 5 days today - Sputum with normal danielle. - Improving SOB and Wheezing. - Work with outpatient lead painter to optimize inhaler regimen. - Wean O2 if able and do home qualifying saturations. (2) URI (upper respiratory infection) Current Visit: Yes Status: Acute Code(s): J06.9 - ACUTE UPPER RESPIRATORY INFECTION, UNSPECIFIED SNOMED Code(s): 88036530 Comment: - Grandchildren had URI symptoms for last 1 week. - Influenza was negative. - Suspect viral insult was the inciting event with brittle baseline given severe CHF, COPD - Previous poor reaction to was can be assumed to be Advair - Consider Singulair when no longer getting duoneb - Might benefit from triple inhaler therapy. (3) Acute on chronic systolic heart failure Current Visit: No Status: Acute Code(s): I50.23 - ACUTE ON CHRONIC SYSTOLIC (CONGESTIVE) HEART FAILURE SNOMED Code(s): 077809914 Comment: - On diuretics at home dose. - She has been referred to the heart failure clinic at [place] will maybe be seen in October. - Strict I/O and daily weights - Had Hamburger and [place] Sp[place]geon before admission (Possibly contributes to acute decompensation - Continue fluid restriction of 1.8L (started 09/26) - Iron Deficiency without OFELIA, supplement IV while inpatient (Iron Sucrose 200mg day 11/22) to reduce readmission and increase functional capacity. (4) Atrial fibrillation Current Visit: No Status: Acute Code(s): I48.91 - UNSPECIFIED ATRIAL FIBRILLATION SNOMED Code(s): 79440517 Comment: - In NSR. Continue metoprolol and pradaxa. (5) CKD (chronic kidney disease), stage III Current Visit: No Status: Acute Code(s): N18.3 - CHRONIC KIDNEY DISEASE, STAGE 3 (MODERATE) SNOMED Code(s): 015167634 Comment: - Cret now at baseline - Daily BMP - Continue Spironolactone and Lasix (6) Diabetes Current Visit: No Status: Acute Code(s): E11.9 - TYPE 2 DIABETES MELLITUS WITHOUT COMPLICATIONS SNOMED Code(s): 67590494 Comment: - DM II, improving control off steroids. - 12u mealtime insulin with SSI - 30u Lantus daily (7) History of pulmonary embolism Current Visit: No Status: Acute Code(s): Z86.711 - PERSONAL HISTORY OF PULMONARY EMBOLISM SNOMED Code(s): 596239532 Comment: - Continue pradaxa 150 mg bid. (8) ICD (implantable cardioverter-defibrillator) in place Current Visit: No Status: Chronic Code(s): Z95.810 - PRESENCE OF AUTOMATIC ( IMPLANTABLE) CARDIAC DEFIBRILLATOR SNOMED Code(s): 315635439 Comment: - With NSVT and EF <20% (9) DVT prophylaxis Current Visit: No Status: Acute Code(s): SFJ0650 - SNOMED Code(s): 462438436 Comment: -Pradaxa Status and Disposition: medicine, inpatient status. Slow Improvement. Hopeful D/C tomorrow
[2019-09-29] MEDS: CMCS: Rosuvastatin (NF) 20 MG TAB PO SCH (17:37)
[2019-09-29] MEDS: Furosemide TAB* 20 MG PO SCH (17:43)
[2019-09-29] MEDS: Insulin GLARGINE(*) 1 UNITS UNIT SUBCUT SCH (21:56)
[2019-09-30 06:52] LABS: BUN/Creatinine Ratio 25.4 (8-20); Calcium 8.7 mg/dL (8.6-10.3); EGFR African American 49.7 (>60); EGFR Non-African American 41.1 (>60); Potassium 4.1 mmol/L (3.5-5.0)
[2019-09-30] MEDS: Insulin LISPRO* 1 UNITS UNIT SUBCUT SCH ×2 (07:29→11:44)
[2019-09-30] MEDS: Fluticasone NASAL SPRAY 50MCG* 16 gm SPRAY BTL BOTH NARES SCH (09:24)
[2019-09-30] MEDS: Iron Sucrose* 200 MG in NS 0.9% 100 ML* 100 ML IVPB SCH (09:24)
[2019-09-30] MEDS: guaiFENesin/CODIENE 100mg/10mg 5 ML UDC PO PRN (09:25)
[2019-09-30] MEDS: Spironolactone TAB* 25 MG PO SCH (09:26)
[2019-09-30] MEDS: Magnesium Oxide TAB* 400 MG PO SCH (09:26)
[2019-09-30] MEDS: Furosemide TAB* 40 MG PO SCH (09:26)
[2019-09-30] MEDS: Azithromycin TAB* 250 MG PO SCH (09:26)
[2019-09-30] MEDS: Potassium Chlor TAB* 20 MEQ TAB.ER PO SCH (09:26)
[2019-09-30] MEDS: Metoprolol Succinate XL TAB* 100 MG PO SCH (09:26)
[2019-09-30] MEDS: CMCS: Dabigatran CAP(NF) 150 MG CAP PO SCH (09:26)
[2019-09-30] MEDS: Pantoprazole TAB * 40 MG TAB PO SCH (09:26)
[2019-09-30] MEDS: Aspirin EC TAB* 81 MG TAB.EC PO SCH (09:26)
[2019-09-30 12:40] VITALS: BP 105/72
--- NOTE | 2019-09-30 20:33 | DS ---
CC: Dr. Gia Carson * DISCHARGE SUMMARY: DATE OF ADMISSION: 09/22/19 DATE OF DISCHARGE: 09/30/19 PRIMARY CARE PROVIDER: Dr. Gia Carson. MY ATTENDING WHILE IN THE HOSPITAL: Dr. Aleksander Long.* (DICTATED BY AP GUAMAN) PRIMARY DISCHARGE DIAGNOSES: 1. Acute hypoxic respiratory failure. 2. Chronic obstructive pulmonary disease exacerbation. 3. Congestive heart failure exacerbation. 4. Iron deficiency without anemia. 5. Likely viral bronchitis. 6. Acute on chronic renal failure, improved. SECONDARY DISCHARGE DIAGNOSES: 1. Heart failure with reduced ejection fraction, EF most recently 20%. 2. Coronary artery disease, status post 3 myocardial infarctions. 3. Atrial fibrillation. 4. Diabetes mellitus, type 2. 5. History of deep venous thrombosis and pulmonary embolism. 6. Gastroesophageal reflux disease. 7. Chronic kidney disease, stage 3. STUDIES DONE WHILE IN THE HOSPITAL: Chest x-ray from 09/22/19 read as cardiomegaly. No definite pneumonia. Pacemaker leads in place. Chest x-ray from 09/26/19 read as cardiomegaly, interstitial congestion noted, pacemaker leads in place. MEDICATIONS AT DISCHARGE: 1. Spironolactone 50 mg p.o. daily. 2. Rosuvastatin 40 mg p.o. daily. 3. Aspirin 81 mg p.o. daily. 4. Lantus 40 units p.o. at bedtime. 5. Magnesium oxide 400 mg p.o. daily. 6. Nitroglycerin 0.4 mg sublingually q.5 minutes as needed. 7. Insulin lispro 8 to 12 units, 16 units subcutaneous t.i.d. by sliding scale. 8. Metoprolol succinate 100 mg p.o. b.i.d. 9. Docusate 100 mg p.o. at bedtime as needed. 10. Omeprazole 20 mg p.o. daily. 11. Dabigatran 75 mg p.o. b.i.d. 12. Potassium chloride 20 mEq p.o. daily. 13. Tylenol 650 mg p.o. q.4 hours as needed. 14. DuoNeb 1 nebulized inhalation q.4 hours as needed. 15. Furosemide 60 mg p.o. nightly. 16. Furosemide 40 mg p.o. daily. 17. Robitussin A-C 5 mL p.o. q.6 hours as needed. 18. Fluticasone nasal spray 2 sprays both nares daily. New medication at discharge: 1. Robitussin A-C. HOSPITAL COURSE: This is a brief summary of the patient's presentation. For more details, please see the history and physical from Christal Zabala MD, on . In brief, the patient is a 64-year-old female with past medical history significant for the above, who presented to the emergency department with severe shortness of breath after being exposed to her grandchildren with upper respiratory symptoms. In the emergency department, she was placed on BiPAP and received IV Lasix and did feel better. The patient in the hospital was noted to be wheezing severely with a frequent productive cough. The patient was initially trialed with just diuresis off of steroids; however, after several days of no improvement, the patient was started on steroids. The patient was diuresed with 60 mg of IV Lasix b.i.d. and her respiratory status improved significantly, though daily weights did not reflect this nor did her intake and output. The patient did note improvement in her lower extremity swelling. The patient's cough diminished. The patient while in the hospital had severe hyperglycemia after her steroids were started with blood sugars consistently being above 400 and requiring escalating doses of insulin. This resolved after a 5-day burst of moderate dose prednisone. The patient while in the hospital was noted to be iron deficient without anemia and was treated with 4 days of iron sucrose mainly due to her severe heart failure. The patient had negative blood cultures and negative sputum culture. The patient was treated with 5 days of azithromycin for her bronchitis and this was completed while she was inpatient. The patient was stable and amenable for discharge on 09/30/19 with good blood glucose control and minimal wheezing. PHYSICAL EXAM ON THE DAY OF DISCHARGE: General: The patient is a 64-year-old female, who appears stated age and sitting in the bed, in no acute distress. Vital Signs: At the time of discharge, temperature 97.6, pulse rate 65, respiratory rate 20, oxygen saturation 99% on room air, blood pressure 105/72. HEENT: Head normocephalic, atraumatic. Sclerae anicteric. No conjunctival injection. Nasal mucosa moist. Oral mucosa moist. No pharyngeal erythema, discharge, or exudate. Neck: Supple, nontender. No lymphadenopathy. No carotid bruits auscultated. No JVD. Cardiac: Regular rate and rhythm. No clicks, murmurs, gallops, or rubs. Pulses are 2+ in the bilateral dorsalis pedis , posterior tibialis, and radial areas. 2+ bilateral lower extremity edema noted. Respiratory: Clear to auscultation bilaterally. No wheezes, rales, or rhonchi. Good air exchange bilaterally. Abdomen: Soft, nontender, nondistended. Bowel sounds present and normoactive in all 4 quadrants. No hepatosplenomegaly. No abdominal bruits auscultated. No hepatojugular reflux. Genitourinary: No suprapubic or CVA tenderness. Skin: Erythematous rash on the face. No other rash or ulcer. Neuro: Cranial nerves II through XII intact. No focal deficits. Alert and oriented x3. Psychiatric: Pleasant and cooperative. DISCHARGE PLAN BY PROBLEM: 1. Acute hypoxic respiratory failure, resolved; COPD exacerbation, CHF exacerbation. The patient was treated concurrently for COPD and CHF exacerbations with good effect. The patient is currently saturating well on room air even with activity. The patient has a residual cough, which will be treated symptomatically. The patient has been diuresed and has improved greatly. The patient has been transitioned back to her home doses of diuretics. The patient will follow up with heart failure specialist in [place] as has been previously set up. The patient should follow up as well with her physical sciences instructor. The patient has been intolerant of several chronic inhalers in the past and one that works for her should be found. The patient should continue with p.r.n. nebulizers at this time. She states she has a large supply at home. The patient has finished azithromycin and received 800 mg of IV iron while in the hospital. The patient's iron level should be rechecked and additional IV iron may be given if ongoing iron deficiency is noted. 2. Iron deficiency without anemia. Treatment as above. The patient should have a workup including possibly an endoscopy and colonoscopy if this has not previously been done. 3. Diabetes mellitus type 2. The patient has been returned to her home diabetic regimen, though she needed significantly more insulin while in the hospital. 4. History of DVT. Continue the patient's anticoagulation. 5. History of atrial fibrillation. The patient is rate controlled on metoprolol. Continue Pradaxa. 6. Chronic kidney disease. The patient's acute kidney injury has resolved at this time with diuresis. This was likely prerenal related to heart failure exacerbation. DISPOSITION: Home. CONDITION: Stable. TIME SPENT: Approximately 60 minutes was spent on the discharge of this patient , 30 of which was spent [id number] with the patient obtaining history and physical and discussing treatment plan. AP GUAMAN [id number]/CPS #: [id number] PATSY
== END 2019-09-30 13:35 | disposition home or self-care (01) | DRG 291 ==
LOC: ED 14:36 → OBSVTOIN 17:05 → MEDTELE 17:05
PROVIDERS: ADMIT Internal Medicine; ATTEND Internal Medicine
PROC: 5A09357 Assistance with Respiratory Ventilation, Less than 24 Consecutive Hours, Continuous Positive Airway Pressure (ICD-10-PCS; principal; 2019-09-21)
DX: I13.0 Hypertensive heart and chronic kidney disease with heart failure and stage 1 through stage 4 chronic kidney disease, or unspecified chronic kidney disease (principal); J96.01 Acute respiratory failure with hypoxia; I50.33 Acute on chronic diastolic (congestive) heart failure; J44.1 Chronic obstructive pulmonary disease with (acute) exacerbation; N17.9 Acute kidney failure, unspecified; E61.1 Iron deficiency; J20.8 Acute bronchitis due to other specified organisms; N18.3 Chronic kidney disease, stage 3 (moderate); E11.22 Type 2 diabetes mellitus with diabetic chronic kidney disease; I25.10 Atherosclerotic heart disease of native coronary artery without angina pectoris; I25.2 Old myocardial infarction; I48.91 Unspecified atrial fibrillation; Z86.711 Personal history of pulmonary embolism; Z86.718 Personal history of other venous thrombosis and embolism; K21.9 Gastro-esophageal reflux disease without esophagitis; Z79.82 Long term (current) use of aspirin; Z79.4 Long term (current) use of insulin; Z79.899 Other long term (current) drug therapy; E11.65 Type 2 diabetes mellitus with hyperglycemia; T38.0X5A Adverse effect of glucocorticoids and synthetic analogues, initial encounter; Y92.239 Unspecified place in hospital as the place of occurrence of the external cause; Z95.810 Presence of automatic (implantable) cardiac defibrillator; I25.5 Ischemic cardiomyopathy; Z88.1 Allergy status to other antibiotic agents; Z88.7 Allergy status to serum and vaccine; Z88.8 Allergy status to other drugs, medicaments and biological substances; Z87.891 Personal history of nicotine dependence; Z91.030 Bee allergy status; Z88.6 Allergy status to analgesic agent; Z91.041 Radiographic dye allergy status; Z95.5 Presence of coronary angioplasty implant and graft; F32.9 Major depressive disorder, single episode, unspecified; M19.042 Primary osteoarthritis, left hand; M19.041 Primary osteoarthritis, right hand; M19.012 Primary osteoarthritis, left shoulder; M19.011 Primary osteoarthritis, right shoulder; Z28.21 Immunization not carried out because of patient refusal
CPT/HCPCS: 36415; 71045; 71046; 80048; 80053; 82728; 82803; 82947; 83540; 83550; 83605; 83735; 83880; 84484; 85025; 85652; 86140; 87040; 87070; 87205; 93005; 94640; 94660; 96374; 99284; A9270-GY; J1756; J1940; J7512

== ENCOUNTER 2020-04-16 15:29 | Inpatient (IN) ==
[2020-04-16 18:18] LABS: ABS Basophils 0.1 10^3/ul (0-0.2); ABS Eosinophils 0.1 10^3/ul (0-0.6); ABS Lymphocytes 1.3 10^3/ul (1.0-4.8); ABS Monocytes 0.7 10^3/ul (0-0.8); ABS Neutrophils 4.2 10^3/ul (1.5-7.7); Eosinophil % 1.3 %; Hematocrit 45 % (35-47); Lymphocyte % 20.9 %; Mean Corpuscular HGB Conc 32 g/dL (31-36); Mean Corpuscular Hemoglobin 27 pg (27-31); Mean Corpuscular Volume 85 fL (80-97); Mean Platelet Volume 8.2 fL (7.4-10.4); Nucleated Red Blood Cells % 0.2; Platelet Count 258 10^3/uL (150-450); Red Blood Count 5.24 10^6 /uL (3.70-4.87); Red Cell Distribution Width 20 % (10-15); White Blood Count 6.4 10^3/uL (3.5-10.8)
[2020-04-16 18:36] LABS: ALT 39 U/L (7-52); AST 73 U/L (13-39); Albumin 3.5 g/dL (3.2-5.2); Albumin/Globulin Ratio 0.9 (1-3); Alkaline Phosphatase 346 U/L (34-104); Anion Gap 11 mmol/L (2-11); BUN/Creatinine Ratio 16.6 (8-20); Blood Urea Nitrogen 29 mg/dL (6-24); C Reactive Protein 31.33 mg/L (<8.01); CO2 Carbon Dioxide 27 mmol/L (22-32); Calcium 9.3 mg/dL (8.6-10.3); Chloride 98 mmol/L (101-111); EGFR African American 35.3 (>60); EGFR Non-African American 29.2 (>60); Globulin 3.9 g/dL (2-4); Glucose 110 mg/dL (70-100); Potassium 3.5 mmol/L (3.5-5.0); Sodium 136 mmol/L (135-145); Total Protein 7.4 g/dL (6.4-8.9)
[2020-04-16 18:42] LABS: Troponin I 0.03 ng/mL (<0.03)
[2020-04-16 20:19] LABS: Magnesium 2.3 mg/dL (1.9-2.7)
[2020-04-16] MEDS ORDERED: Bumetanide IV 0.25 MG/ML 4 ml VIAL (1 mg) SLOW PUSH ONE (20:23)
[2020-04-16] MEDS ORDERED: Al Hydrox/Mg Hydrox/Simet LIQ 30 ML UDC PO PRN (20:24)
[2020-04-16] MEDS ORDERED: Ondansetron 4 mg VIAL 2 MG/ML 2 ml VIAL IV PRN (20:24)
[2020-04-16] MEDS ORDERED: Dextrose 50% Syringe 50 ml 25 GM/50 ML SYRINGE IV PUSH PRN (20:30)
[2020-04-16] MEDS ORDERED: Acetaminop/Codeine 300mg/30mg TAB PO PRN (20:33)
[2020-04-16] MEDS ORDERED: Albuterol 2.5mg/3 ml (0.083%) NEB.SOLN INH PRN (20:33)
[2020-04-16] MEDS ORDERED: Clotrimazole 1% CREAM 30 gm TOPICAL PRN (21:12)
[2020-04-16] MEDS ORDERED: Albuterol HFA INHALER 8 gm MDI INH PRN (21:12)
[2020-04-16 22:05] LABS: Troponin I 0.03 ng/mL (<0.03)
[2020-04-16 22:51] LABS: TSH Ultra Thyroid Stim Horm 12.64 mcIU/mL (0.34-5.60)
[2020-04-16 22:53] LABS: Free T4 1.25 ng/dL (0.61-1.12)
[2020-04-16] MEDS: CMCS: Dabigatran 75 mg CAP (NF) PO SCH (23:53)
[2020-04-16] MEDS: CMCS: Omeprazole 20 mg CAP (NF) PO SCH (23:54)
[2020-04-16] MEDS: Potassium Chlor 10 meq TAB PO SCH (23:55)
[2020-04-16] MEDS: Insulin GLARGINE 100 un/ml 10 ml VIAL SUBCUT SCH (23:56)
[2020-04-17] MEDS: Mupirocin 2% OINT TUBE TOPICAL SCH ×3 (00:50→21:46)
[2020-04-17 00:51] LABS: Troponin I 0.03 ng/mL (<0.03)
[2020-04-17] MEDS ORDERED: Bumetanide IV 0.25 MG/ML 4 ml VIAL (1 mg) SLOW PUSH ONE (01:30)
[2020-04-17] MEDS ORDERED: Prochlorperazine 5 mg/ml 2 ml VIAL (10 mg) IV PRN (02:15)
[2020-04-17 06:58] LABS: ABS Basophils 0.1 10^3/ul (0-0.2); ABS Eosinophils 0.1 10^3/ul (0-0.6); ABS Monocytes 0.6 10^3/ul (0-0.8); Eosinophil % 1.2 %; Hematocrit 39 % (35-47); Hemoglobin 12.5 g/dL (12.0-16.0); Lymphocyte % 17.3 %; Mean Corpuscular HGB Conc 33 g/dL (31-36); Mean Corpuscular Hemoglobin 27 pg (27-31); Mean Corpuscular Volume 84 fL (80-97); Mean Platelet Volume 8.2 fL (7.4-10.4); Nucleated Red Blood Cells % 0.2; Platelet Count 229 10^3/uL (150-450); Red Blood Count 4.58 10^6 /uL (3.70-4.87); Red Cell Distribution Width 19 % (10-15); White Blood Count 5.8 10^3/uL (3.5-10.8)
[2020-04-17 07:26] LABS: Albumin/Globulin Ratio 0.9 (1-3); BUN/Creatinine Ratio 14.9 (8-20); Calcium 8.6 mg/dL (8.6-10.3); EGFR African American 31.3 (>60); EGFR Non-African American 25.9 (>60); Globulin 3.5 g/dL (2-4); Total Bilirubin 1.2 mg/dL (0.2-1.0); Total Protein 6.5 g/dL (6.4-8.9)
[2020-04-17 07:45] LABS: Potassium 2.7 mmol/L (3.5-5.0)
[2020-04-17] MEDS: KCL 20 MEQ/100 ML IVPREMIX 20 MEQ/100 ML BAG IV SCH ×3 (08:16→16:37)
[2020-04-17] MEDS: Fluticasone NASAL SPRAY 50MCG 16 gm SPRAY BTL INTRANASAL SCH (08:18)
[2020-04-17] MEDS: CMCS: Rosuvastatin 20 mg TAB (NF) PO SCH (08:22)
[2020-04-17] MEDS: Potassium Chlor 10 meq TAB PO SCH ×2 (08:23→21:41)
[2020-04-17] MEDS: Aspirin EC 81 mg TAB.EC (enteric coated) PO SCH (08:24)
[2020-04-17] MEDS: CMCS: Dabigatran 75 mg CAP (NF) PO SCH ×2 (08:24→21:45)
[2020-04-17] MEDS: CMCS: Omeprazole 20 mg CAP (NF) PO SCH ×2 (08:24→21:40)
[2020-04-17] MEDS: Insulin GLARGINE 100 un/ml 10 ml VIAL SUBCUT SCH (22:24)
[2020-04-17] MEDS ORDERED: diPHENhydraMINE 25 mg TAB PO PRN (23:34)
[2020-04-17 23:51] LABS: Urine Appearance Cloudy; Urine Bilirubin Negative (Negative); Urine Blood 1+ (Negative); Urine Color Yellow; Urine Glucose 1+(50 mg/dL) (Negative); Urine Ketones Negative (Negative); Urine Nitrite Negative (Negative); Urine Protein 1+(30 mg/dL) (Negative); Urine Urobilinogen Negative (Negative)
[2020-04-17 23:56] LABS: Urine Bacteria 1+ (Absent); Urine Granular Casts Present (Absent); Urine Red Blood Cell Trace(0-2/hpf) (Absent); Urine Squamous Epithelial Cell Present (Absent); Urine White Blood Cell 1+(6-10/hpf) (Absent)
[2020-04-18 05:43] LABS: Hematocrit 39 % (35-47); Hemoglobin 12.6 g/dL (12.0-16.0); Mean Corpuscular HGB Conc 32 g/dL (31-36); Mean Corpuscular Hemoglobin 27 pg (27-31); Mean Corpuscular Volume 84 fL (80-97); Mean Platelet Volume 8.1 fL (7.4-10.4); Platelet Count 209 10^3/uL (150-450); Red Blood Count 4.67 10^6 /uL (3.70-4.87); Red Cell Distribution Width 19 % (10-15); White Blood Count 4.9 10^3/uL (3.5-10.8)
[2020-04-18 06:03] LABS: BUN/Creatinine Ratio 16.4 (8-20); Calcium 8.2 mg/dL (8.6-10.3); EGFR African American 34.8 (>60); EGFR Non-African American 28.8 (>60); Potassium 3.2 mmol/L (3.5-5.0)
[2020-04-18] MEDS ORDERED: KCL 20 MEQ/100 ML IVPREMIX 20 MEQ/100 ML BAG IV SCH (09:00)
[2020-04-18] MEDS: Potassium Chlor 10 meq TAB PO SCH ×2 (09:04→21:25)
[2020-04-18] MEDS: CMCS: Rosuvastatin 20 mg TAB (NF) PO SCH (09:04)
[2020-04-18] MEDS: CMCS: Omeprazole 20 mg CAP (NF) PO SCH ×2 (09:04→21:24)
[2020-04-18] MEDS: CMCS: Dabigatran 75 mg CAP (NF) PO SCH ×2 (09:05→21:25)
[2020-04-18] MEDS: Aspirin EC 81 mg TAB.EC (enteric coated) PO SCH (09:07)
[2020-04-18] MEDS: Fluticasone NASAL SPRAY 50MCG 16 gm SPRAY BTL INTRANASAL SCH (09:10)
[2020-04-18] MEDS: Mupirocin 2% OINT TUBE TOPICAL SCH ×2 (09:23→21:28)
[2020-04-18] MEDS ORDERED: Insulin GLARGINE 100 un/ml 10 ml VIAL SUBCUT SCH (21:00)
[2020-04-19 05:02] LABS: Hematocrit 39 % (35-47); Hemoglobin 12.8 g/dL (12.0-16.0); Mean Corpuscular HGB Conc 33 g/dL (31-36); Mean Corpuscular Hemoglobin 27 pg (27-31); Mean Corpuscular Volume 83 fL (80-97); Mean Platelet Volume 8.1 fL (7.4-10.4); Platelet Count 208 10^3/uL (150-450); Red Blood Count 4.69 10^6 /uL (3.70-4.87); Red Cell Distribution Width 19 % (10-15)
[2020-04-19 05:19] LABS: BUN/Creatinine Ratio 16.5 (8-20); EGFR Non-African American 31.4 (>60); Magnesium 2.3 mg/dL (1.9-2.7); Potassium 2.9 mmol/L (3.5-5.0)
[2020-04-19] MEDS: Potassium Chlor 10 meq TAB PO SCH (10:01)
[2020-04-19] MEDS: CMCS: Omeprazole 20 mg CAP (NF) PO SCH (10:01)
[2020-04-19] MEDS: CMCS: Rosuvastatin 20 mg TAB (NF) PO SCH (10:01)
[2020-04-19] MEDS: Aspirin EC 81 mg TAB.EC (enteric coated) PO SCH (10:01)
[2020-04-19] MEDS: Mupirocin 2% OINT TUBE TOPICAL SCH (10:02)
[2020-04-19] MEDS: CMCS: Dabigatran 75 mg CAP (NF) PO SCH (10:02)
[2020-04-19] MEDS: KCL 20 MEQ/100 ML IVPREMIX 20 MEQ/100 ML BAG IV SCH ×2 (10:02→13:34)
[2020-04-19] MEDS: Fluticasone NASAL SPRAY 50MCG 16 gm SPRAY BTL INTRANASAL SCH (10:02)
[2020-04-19 11:32] VITALS: BP 140/49
== END 2020-04-19 16:49 | disposition home or self-care (01) | DRG 291 ==
LOC: MEDTELE 15:29 → ED 15:29 → MEDTELE 04-17 03:02
PROVIDERS: ADMIT Pediatrics; ATTEND Internal Medicine

== ENCOUNTER 2020-05-21 12:15 | Inpatient (IN) ==
[2020-05-21] MEDS ORDERED: Bumetanide IV 0.25 MG/ML 4 ml VIAL (1 mg) SLOW PUSH ONE (12:44)
[2020-05-21 13:40] LABS: ABS Basophils 0.1 10^3/ul (0-0.2); ABS Eosinophils 0.1 10^3/ul (0-0.6); ABS Monocytes 0.4 10^3/ul (0-0.8); ABS Neutrophils 4.6 10^3/ul (1.5-7.7); Hematocrit 46 % (35-47); Hemoglobin 14.7 g/dL (12.0-16.0); Lymphocyte % 16.1 %; Mean Corpuscular HGB Conc 32 g/dL (31-36); Mean Corpuscular Hemoglobin 26 pg (27-31); Mean Corpuscular Volume 82 fL (80-97); Mean Platelet Volume 8.4 fL (7.4-10.4); Nucleated Red Blood Cells % 0.1; Platelet Count 217 10^3/uL (150-450); Red Blood Count 5.62 10^6 /uL (3.70-4.87); Red Cell Distribution Width 20 % (10-15)
[2020-05-21 13:46] LABS: Troponin I 0.04 ng/mL (<0.03)
[2020-05-21 13:53] LABS: ALT 33 U/L (7-52); Albumin/Globulin Ratio 0.8 (1-3); Alkaline Phosphatase 347 U/L (34-104); BUN/Creatinine Ratio 13.2 (8-20); Blood Urea Nitrogen 26 mg/dL (6-24); CO2 Carbon Dioxide 25 mmol/L (22-32); Chloride 95 mmol/L (101-111); EGFR African American 30.8 (>60); EGFR Non-African American 25.4 (>60); Globulin 5.2 g/dL (2-4); Glucose 119 mg/dL (70-100); Sodium 128 mmol/L (135-145); Total Protein 9.2 g/dL (6.4-8.9)
[2020-05-21 13:55] LABS: Anion Gap 8 mmol/L (2-11)
[2020-05-21] MEDS ORDERED: Albuterol 2.5mg/3 ml (0.083%) NEB.SOLN INH PRN (14:58)
[2020-05-21] MEDS ORDERED: Dextrose 50% Syringe 50 ml 25 GM/50 ML SYRINGE IV PUSH PRN (15:02)
[2020-05-21 15:07] LABS: AST Redraw 61 U/L (13-39)
[2020-05-21] MEDS ORDERED: Albuterol HFA INHALER 8 gm MDI INH PRN (15:26)
[2020-05-21 17:41] LABS: AST Redraw 57 U/L (13-39); Potassium 3.2 mmol/L (3.5-5.0)
[2020-05-21 17:48] LABS: Troponin I 0.05 ng/mL (<0.03)
[2020-05-21] MEDS: KCL 10 MEQ/50 ML IVPREMIX 10 MEQ/50 ML BAG IV SCH ×2 (17:57→21:59)
[2020-05-21 18:17] LABS: TSH Ultra Thyroid Stim Horm 9.32 mcIU/mL (0.34-5.60)
[2020-05-21 18:19] LABS: Free T4 1.27 ng/dL (0.61-1.12)
[2020-05-21 20:33] LABS: Troponin I 0.04 ng/mL (<0.03)
[2020-05-21] MEDS: CMCS: Rosuvastatin 20 mg TAB (NF) PO SCH (20:37)
[2020-05-21] MEDS: DABIGATRAN 150 MG PO SCH (20:37)
[2020-05-21 23:18] LABS: Troponin I 0.04 ng/mL (<0.03)
[2020-05-22] MEDS: KCL 10 MEQ/50 ML IVPREMIX 10 MEQ/50 ML BAG IV SCH (00:50)
[2020-05-22] MEDS: Acetaminop/Codeine 300mg/30mg TAB PO PRN (02:30)
[2020-05-22 06:27] LABS: ABS Basophils 0.1 10^3/ul (0-0.2); ABS Eosinophils 0.1 10^3/ul (0-0.6); ABS Monocytes 0.5 10^3/ul (0-0.8); ABS Neutrophils 4.4 10^3/ul (1.5-7.7); Eosinophil % 1.4 %; Hematocrit 42 % (35-47); Hemoglobin 13.5 g/dL (12.0-16.0); Lymphocyte % 15.7 %; Mean Corpuscular HGB Conc 32 g/dL (31-36); Mean Corpuscular Hemoglobin 26 pg (27-31); Mean Corpuscular Volume 81 fL (80-97); Mean Platelet Volume 8.3 fL (7.4-10.4); Nucleated Red Blood Cells % 0.1; Platelet Count 188 10^3/uL (150-450); Red Cell Distribution Width 19 % (10-15); White Blood Count 6.1 10^3/uL (3.5-10.8)
[2020-05-22 07:04] LABS: BUN/Creatinine Ratio 15.1 (8-20); Calcium 8.9 mg/dL (8.6-10.3); EGFR African American 32.9 (>60); EGFR Non-African American 27.2 (>60); Potassium 3.1 mmol/L (3.5-5.0)
[2020-05-22 07:56] LABS: Magnesium 2.2 mg/dL (1.9-2.7)
[2020-05-22] MEDS: KCL 20 MEQ/100 ML IVPREMIX 20 MEQ/100 ML BAG IV SCH ×2 (08:38→14:52)
[2020-05-22] MEDS: Potassium Chlor 10 meq TAB PO SCH (08:39)
[2020-05-22] MEDS: Insulin GLARGINE 100 un/ml 10 ml VIAL SUBCUT SCH (08:39)
[2020-05-22] MEDS: Aspirin EC 81 mg TAB.EC (enteric coated) PO SCH (08:39)
[2020-05-22] MEDS: Fluticasone NASAL SPRAY 50MCG 16 gm SPRAY BTL INTRANASAL SCH (08:40)
[2020-05-22] MEDS ORDERED: Bumetanide IV 0.25 MG/ML 4 ml VIAL (1 mg) SLOW PUSH ONE (09:00)
[2020-05-22] MEDS: DABIGATRAN 150 MG PO SCH ×2 (09:19→20:27)
[2020-05-22] MEDS ORDERED: Potassium Chlor 20 meq TAB.ER PO ONE (12:00)
[2020-05-22 15:37] LABS: Phosphorus 3.5 mg/dL (2.5-5.0)
[2020-05-22] MEDS: CMCS: Rosuvastatin 20 mg TAB (NF) PO SCH (20:28)
[2020-05-23 05:55] LABS: Magnesium 2.2 mg/dL (1.9-2.7)
[2020-05-23 05:57] LABS: Potassium 2.7 mmol/L (3.5-5.0)
[2020-05-23 06:01] LABS: EGFR African American 32.7 (>60)
[2020-05-23] MEDS ORDERED: Potassium Chlor 20 meq TAB.ER PO ONE (06:17)
[2020-05-23] MEDS: Insulin GLARGINE 100 un/ml 10 ml VIAL SUBCUT SCH (08:31)
[2020-05-23] MEDS: Potassium Chlor 10 meq TAB PO SCH (08:31)
[2020-05-23] MEDS: Aspirin EC 81 mg TAB.EC (enteric coated) PO SCH (08:32)
[2020-05-23] MEDS: Fluticasone NASAL SPRAY 50MCG 16 gm SPRAY BTL INTRANASAL SCH (08:33)
[2020-05-23] MEDS: KCL 20 MEQ/100 ML IVPREMIX 20 MEQ/100 ML BAG IV SCH ×4 (08:38→21:59)
[2020-05-23] MEDS: KCL 10 MEQ/50 ML IVPREMIX 10 MEQ/50 ML BAG IV SCH (08:39)
[2020-05-23] MEDS: DABIGATRAN 150 MG PO SCH ×2 (09:55→21:17)
[2020-05-23] MEDS: Bumetanide IV 0.25 MG/ML 4 ml VIAL (1 mg) SLOW PUSH SCH ×2 (10:36→15:06)
[2020-05-23] MEDS ORDERED: Potassium Chloride LIQUID 20 MEQ/15 ML LIQUID PO ONE (11:15)
[2020-05-23 16:22] LABS: Calcium 9.1 mg/dL (8.6-10.3); EGFR African American 32.7 (>60); Magnesium 2.2 mg/dL (1.9-2.7); Potassium 3.8 mmol/L (3.5-5.0)
[2020-05-23] MEDS: CMCS: Rosuvastatin 20 mg TAB (NF) PO SCH (21:17)
[2020-05-23] MEDS: Acetaminop/Codeine 300mg/30mg TAB PO PRN (21:17)
[2020-05-24] MEDS: Acetaminop/Codeine 300mg/30mg TAB PO PRN ×3 (03:57→20:09)
[2020-05-24 07:12] LABS: BUN/Creatinine Ratio 16.3 (8-20); Calcium 9.3 mg/dL (8.6-10.3); EGFR African American 29.9 (>60); EGFR Non-African American 24.7 (>60); Magnesium 2.1 mg/dL (1.9-2.7); Potassium 3.1 mmol/L (3.5-5.0)
[2020-05-24] MEDS: Fluticasone NASAL SPRAY 50MCG 16 gm SPRAY BTL INTRANASAL SCH (08:58)
[2020-05-24] MEDS: Insulin GLARGINE 100 un/ml 10 ml VIAL SUBCUT SCH (08:58)
[2020-05-24] MEDS: Potassium Chlor 20 meq TAB.ER PO SCH (09:01)
[2020-05-24] MEDS: Bumetanide IV 0.25 MG/ML 4 ml VIAL (1 mg) SLOW PUSH SCH ×2 (09:03→15:01)
[2020-05-24] MEDS: Aspirin EC 81 mg TAB.EC (enteric coated) PO SCH (09:04)
[2020-05-24] MEDS: DABIGATRAN 150 MG PO SCH ×2 (09:04→20:13)
[2020-05-24] MEDS: Polyethylene Glycol 3350 17 GM PACKET PO SCH ×2 (13:38→20:12)
[2020-05-24] MEDS: Prochlorperazine 5 mg/ml 2 ml VIAL (10 mg) IV PRN (13:39)
[2020-05-24] MEDS: CMCS: Rosuvastatin 20 mg TAB (NF) PO SCH (20:12)
[2020-05-24] MEDS ORDERED: Potassium Chlor 20 meq TAB.ER PO ONE (21:00)
[2020-05-25 07:26] LABS: BUN/Creatinine Ratio 18.1 (8-20); Calcium 9.9 mg/dL (8.6-10.3); EGFR African American 32.5 (>60); EGFR Non-African American 26.9 (>60); Magnesium 2.2 mg/dL (1.9-2.7)
[2020-05-25] MEDS: Polyethylene Glycol 3350 17 GM PACKET PO SCH ×3 (08:28→19:53)
[2020-05-25] MEDS: Aspirin EC 81 mg TAB.EC (enteric coated) PO SCH (08:29)
[2020-05-25] MEDS: Potassium Chlor 20 meq TAB.ER PO SCH ×4 (08:29→16:41)
[2020-05-25] MEDS: Bumetanide IV 0.25 MG/ML 4 ml VIAL (1 mg) SLOW PUSH SCH ×2 (08:29→14:28)
[2020-05-25] MEDS: DABIGATRAN 150 MG PO SCH ×2 (08:29→19:41)
[2020-05-25] MEDS: Fluticasone NASAL SPRAY 50MCG 16 gm SPRAY BTL INTRANASAL SCH (08:30)
[2020-05-25] MEDS: Acetaminop/Codeine 300mg/30mg TAB PO PRN ×2 (08:30→19:53)
[2020-05-25] MEDS: Insulin GLARGINE 100 un/ml 10 ml VIAL SUBCUT SCH (08:33)
[2020-05-25] MEDS: Prochlorperazine 5 mg/ml 2 ml VIAL (10 mg) IV PRN (11:39)
[2020-05-25] MEDS: KCL 10 MEQ/50 ML IVPREMIX 10 MEQ/50 ML BAG IV SCH ×2 (11:40→14:30)
[2020-05-25 14:53] LABS: BUN/Creatinine Ratio 19.3 (8-20); Calcium 10.3 mg/dL (8.6-10.3); EGFR African American 31.7 (>60); EGFR Non-African American 26.2 (>60); Potassium 3.5 mmol/L (3.5-5.0)
[2020-05-25] MEDS: CMCS: Rosuvastatin 20 mg TAB (NF) PO SCH (19:42)
[2020-05-26] MEDS: Acetaminop/Codeine 300mg/30mg TAB PO PRN ×3 (01:17→21:17)
[2020-05-26 07:18] LABS: BUN/Creatinine Ratio 20.3 (8-20); EGFR African American 32.7 (>60); Magnesium 2.3 mg/dL (1.9-2.7); Potassium 3.1 mmol/L (3.5-5.0)
[2020-05-26] MEDS: Fluticasone NASAL SPRAY 50MCG 16 gm SPRAY BTL INTRANASAL SCH (08:04)
[2020-05-26] MEDS: Aspirin EC 81 mg TAB.EC (enteric coated) PO SCH (08:04)
[2020-05-26] MEDS: Polyethylene Glycol 3350 17 GM PACKET PO SCH ×2 (08:04→21:19)
[2020-05-26] MEDS: Potassium Chlor 20 meq TAB.ER PO SCH ×3 (08:05→14:53)
[2020-05-26] MEDS: DABIGATRAN 150 MG PO SCH ×2 (08:05→21:19)
[2020-05-26] MEDS: Bumetanide IV 0.25 MG/ML 4 ml VIAL (1 mg) SLOW PUSH SCH (08:05)
[2020-05-26] MEDS: Insulin GLARGINE 100 un/ml 10 ml VIAL SUBCUT SCH (08:08)
[2020-05-26] MEDS: KCL 10 MEQ/50 ML IVPREMIX 10 MEQ/50 ML BAG IV SCH ×3 (08:10→11:54)
[2020-05-26] MEDS: Prochlorperazine 5 mg/ml 2 ml VIAL (10 mg) IV PRN (11:58)
[2020-05-26 15:23] LABS: BUN/Creatinine Ratio 18.4 (8-20); Calcium 9.6 mg/dL (8.6-10.3); EGFR African American 29.1 (>60); Potassium 4.5 mmol/L (3.5-5.0)
[2020-05-26] MEDS: CMCS: Rosuvastatin 20 mg TAB (NF) PO SCH (21:19)
[2020-05-27] MEDS: Acetaminop/Codeine 300mg/30mg TAB PO PRN (00:57)
[2020-05-27 06:25] LABS: BUN/Creatinine Ratio 20.4 (8-20); Calcium 9.7 mg/dL (8.6-10.3); EGFR African American 28.4 (>60); EGFR Non-African American 23.5 (>60); Potassium 4.2 mmol/L (3.5-5.0)
[2020-05-27] MEDS: Bumetanide IV 0.25 MG/ML 4 ml VIAL (1 mg) SLOW PUSH SCH (08:03)
[2020-05-27] MEDS: DABIGATRAN 150 MG PO SCH (10:02)
[2020-05-27] MEDS: Potassium Chlor 20 meq TAB.ER PO SCH (10:02)
[2020-05-27] MEDS: Polyethylene Glycol 3350 17 GM PACKET PO SCH (10:02)
[2020-05-27] MEDS: Aspirin EC 81 mg TAB.EC (enteric coated) PO SCH (10:03)
[2020-05-27] MEDS: Fluticasone NASAL SPRAY 50MCG 16 gm SPRAY BTL INTRANASAL SCH (10:03)
[2020-05-27] MEDS: Insulin GLARGINE 100 un/ml 10 ml VIAL SUBCUT SCH (10:04)
[2020-05-27 11:55] VITALS: BP 127/60
== END 2020-05-27 15:20 | disposition home health service (06) | DRG 194 ==
LOC: MEDTELE 12:15 → ED 12:15 → OBSVTOIN 14:53 → MEDTELE 16:16
PROVIDERS: ADMIT Internal Medicine; ATTEND Internal Medicine

== ENCOUNTER 2020-06-13 15:38 | Inpatient (IN) ==
[2020-06-13 17:05] LABS: ABS Basophils 0.1 10^3/ul (0-0.2); ABS Eosinophils 0.1 10^3/ul (0-0.6); ABS Lymphocytes 0.8 10^3/ul (1.0-4.8); ABS Monocytes 0.5 10^3/ul (0-0.8); Eosinophil % 0.8 %; Hematocrit 43 % (35-47); Hemoglobin 13.8 g/dL (12.0-16.0); Lymphocyte % 9.4 %; Mean Corpuscular HGB Conc 32 g/dL (31-36); Mean Corpuscular Hemoglobin 26 pg (27-31); Mean Corpuscular Volume 81 fL (80-97); Mean Platelet Volume 8.6 fL (7.4-10.4); Platelet Count 240 10^3/uL (150-450); Red Blood Count 5.28 10^6 /uL (3.70-4.87); Red Cell Distribution Width 21 % (10-15); White Blood Count 8.5 10^3/uL (3.5-10.8)
[2020-06-13] MEDS ORDERED: Ciprofloxacin 400mg IVPREMIX 400 MG/200 ML BAG IVPB ONE (17:10)
[2020-06-13] MEDS ORDERED: metroNIDAZOLE IV 500 MG/100ML 500 MG/100 ML BAG IVPB ONE (17:10)
[2020-06-13 17:22] LABS: Albumin 3.7 g/dL (3.2-5.2); Albumin/Globulin Ratio 0.9 (1-3); C Reactive Protein 73.2 mg/L (<8.01); Calcium 9.6 mg/dL (8.6-10.3); Globulin 4.1 g/dL (2-4); Potassium 4.8 mmol/L (3.5-5.0); Total Bilirubin 1.2 mg/dL (0.2-1.0); Total Protein 7.8 g/dL (6.4-8.9)
[2020-06-13 17:50] LABS: BUN/Creatinine Ratio 19.2 (8-20); EGFR African American 29.7 (>60); EGFR Non-African American 24.6 (>60)
[2020-06-13] MEDS ORDERED: Vancomycin 1,500 MG in NS 0.9% 250 ml 250 ML IVPB ONE (18:00)
[2020-06-13] MEDS ORDERED: Oxymetazoline 0.05% NASAL SPR 15 ML BTL LEFT NARE ONE (18:15)
[2020-06-13] MEDS ORDERED: Albuterol 2.5mg/3 ml (0.083%) NEB.SOLN INH PRN (18:20)
[2020-06-13] MEDS ORDERED: Dextrose 50% Syringe 50 ml 25 GM/50 ML SYRINGE IV PUSH PRN (18:46)
[2020-06-13] MEDS ORDERED: diPHENhydraMINE IV 50 MG/ML 1 ml VIAL (BENADRYL) SLOW PUSH ONE (18:52)
[2020-06-13] MEDS: CMCS: Dabigatran 150 mg CAP (NF) PO SCH (23:27)
[2020-06-14] MEDS: Linezolid 600 MG IVPREMIX(*) 600 MG/300 ML BAG IVPB SCH ×2 (00:24→09:19)
[2020-06-14] MEDS: Ondansetron 4 mg VIAL 2 MG/ML 2 ml VIAL IV PRN (01:13)
[2020-06-14] MEDS: Aztreonam 1 GM in NS 0.9% 50 ML 50 ML IV SCH ×2 (02:30→10:45)
[2020-06-14] MEDS ORDERED: metroNIDAZOLE IV 250 MG/50ML 50 ML IVPB SCH (04:00)
[2020-06-14 06:33] LABS: ABS Eosinophils 0.1 10^3/ul (0-0.6); ABS Lymphocytes 0.9 10^3/ul (1.0-4.8); ABS Monocytes 0.5 10^3/ul (0-0.8); ABS Neutrophils 5.6 10^3/ul (1.5-7.7); Eosinophil % 1.1 %; Hematocrit 41 % (35-47); Hemoglobin 13.5 g/dL (12.0-16.0); Lymphocyte % 12.5 %; Mean Corpuscular HGB Conc 33 g/dL (31-36); Mean Corpuscular Hemoglobin 26 pg (27-31); Mean Corpuscular Volume 80 fL (80-97); Mean Platelet Volume 8.5 fL (7.4-10.4); Nucleated Red Blood Cells % 0.1; Platelet Count 206 10^3/uL (150-450); Red Blood Count 5.14 10^6 /uL (3.70-4.87); Red Cell Distribution Width 21 % (10-15); White Blood Count 7.1 10^3/uL (3.5-10.8)
[2020-06-14 06:57] LABS: C Reactive Protein 73.82 mg/L (<8.01); Calcium 9.3 mg/dL (8.6-10.3); EGFR African American 31.3 (>60); EGFR Non-African American 25.9 (>60); Magnesium 1.9 mg/dL (1.9-2.7); Potassium 3.8 mmol/L (3.5-5.0)
[2020-06-14] MEDS: Aspirin EC 81 mg TAB.EC (enteric coated) PO SCH (08:19)
[2020-06-14] MEDS: Potassium Chlor 20 meq TAB.ER PO SCH (08:20)
[2020-06-14] MEDS: CMCS: Rosuvastatin 20 mg TAB (NF) PO SCH (08:21)
[2020-06-14] MEDS: CMCS: Dabigatran 150 mg CAP (NF) PO SCH ×2 (08:21→20:39)
[2020-06-14] MEDS: Fluticasone NASAL SPRAY 50MCG 16 gm SPRAY BTL INTRANASAL SCH (08:22)
[2020-06-14] MEDS: Insulin GLARGINE 100 un/ml 10 ml VIAL SUBCUT SCH (08:22)
[2020-06-15 06:43] LABS: ABS Eosinophils 0.1 10^3/ul (0-0.6); ABS Lymphocytes 0.8 10^3/ul (1.0-4.8); ABS Monocytes 0.3 10^3/ul (0-0.8); ABS Neutrophils 4.8 10^3/ul (1.5-7.7); Eosinophil % 2.1 %; Hematocrit 40 % (35-47); Hemoglobin 13.2 g/dL (12.0-16.0); Mean Corpuscular HGB Conc 33 g/dL (31-36); Mean Corpuscular Hemoglobin 26 pg (27-31); Mean Corpuscular Volume 81 fL (80-97); Mean Platelet Volume 8.3 fL (7.4-10.4); Nucleated Red Blood Cells % 0.1; Platelet Count 186 10^3/uL (150-450); Red Blood Count 4.99 10^6 /uL (3.70-4.87); Red Cell Distribution Width 21 % (10-15); White Blood Count 6.2 10^3/uL (3.5-10.8)
[2020-06-15 07:01] LABS: BUN/Creatinine Ratio 17.5 (8-20); Calcium 8.7 mg/dL (8.6-10.3); EGFR African American 32.3 (>60); EGFR Non-African American 26.7 (>60); Magnesium 1.9 mg/dL (1.9-2.7); Potassium 3.4 mmol/L (3.5-5.0)
[2020-06-15] MEDS ORDERED: Potassium Chlor 20 meq TAB.ER PO ONE (07:39)
[2020-06-15] MEDS: Aspirin EC 81 mg TAB.EC (enteric coated) PO SCH (09:02)
[2020-06-15] MEDS: Potassium Chlor 20 meq TAB.ER PO SCH (09:03)
[2020-06-15] MEDS: CMCS: Rosuvastatin 20 mg TAB (NF) PO SCH (09:04)
[2020-06-15] MEDS: Insulin GLARGINE 100 un/ml 10 ml VIAL SUBCUT SCH (09:05)
[2020-06-15] MEDS: Fluticasone NASAL SPRAY 50MCG 16 gm SPRAY BTL INTRANASAL SCH (09:05)
[2020-06-15] MEDS: CMCS: Dabigatran 150 mg CAP (NF) PO SCH ×2 (09:05→21:57)
[2020-06-15] MEDS: Polyethylene Glycol 3350 17 GM PACKET PO PRN (09:06)
[2020-06-15] MEDS ORDERED: KCL 10 MEQ/50 ML IVPREMIX 10 MEQ/50 ML BAG IV ONE (13:15)
[2020-06-16 06:14] LABS: ABS Basophils 0.1 10^3/ul (0-0.2); ABS Eosinophils 0.1 10^3/ul (0-0.6); ABS Lymphocytes 1.1 10^3/ul (1.0-4.8); ABS Monocytes 0.3 10^3/ul (0-0.8); ABS Neutrophils 3.9 10^3/ul (1.5-7.7); Eosinophil % 2.3 %; Hematocrit 41 % (35-47); Hemoglobin 13.3 g/dL (12.0-16.0); Lymphocyte % 19.8 %; Mean Corpuscular HGB Conc 33 g/dL (31-36); Mean Corpuscular Hemoglobin 26 pg (27-31); Mean Corpuscular Volume 81 fL (80-97); Mean Platelet Volume 8.4 fL (7.4-10.4); Platelet Count 224 10^3/uL (150-450); Red Blood Count 5.07 10^6 /uL (3.70-4.87); Red Cell Distribution Width 21 % (10-15); White Blood Count 5.4 10^3/uL (3.5-10.8)
[2020-06-16 06:19] LABS: Calcium 8.9 mg/dL (8.6-10.3); Potassium 3.8 mmol/L (3.5-5.0)
[2020-06-16 06:25] LABS: EGFR Non-African American 28.1 (>60)
[2020-06-16] MEDS: CMCS: Rosuvastatin 20 mg TAB (NF) PO SCH (08:24)
[2020-06-16] MEDS: CMCS: Dabigatran 150 mg CAP (NF) PO SCH ×2 (08:33→21:02)
[2020-06-16] MEDS: Aspirin EC 81 mg TAB.EC (enteric coated) PO SCH (08:34)
[2020-06-16] MEDS: Insulin GLARGINE 100 un/ml 10 ml VIAL SUBCUT SCH (08:34)
[2020-06-16] MEDS: Potassium Chlor 20 meq TAB.ER PO SCH (08:35)
[2020-06-16] MEDS: Fluticasone NASAL SPRAY 50MCG 16 gm SPRAY BTL INTRANASAL SCH (08:37)
[2020-06-16] MEDS: Polyethylene Glycol 3350 17 GM PACKET PO PRN (12:23)
[2020-06-17 07:05] LABS: ABS Basophils 0.1 10^3/ul (0-0.2); ABS Eosinophils 0.1 10^3/ul (0-0.6); ABS Lymphocytes 1.1 10^3/ul (1.0-4.8); ABS Monocytes 0.4 10^3/ul (0-0.8); Hematocrit 41 % (35-47); Hemoglobin 13.2 g/dL (12.0-16.0); Lymphocyte % 19.2 %; Mean Corpuscular HGB Conc 33 g/dL (31-36); Mean Corpuscular Hemoglobin 26 pg (27-31); Mean Corpuscular Volume 81 fL (80-97); Mean Platelet Volume 8.2 fL (7.4-10.4); Platelet Count 248 10^3/uL (150-450); Red Blood Count 5.01 10^6 /uL (3.70-4.87); Red Cell Distribution Width 21 % (10-15); White Blood Count 5.5 10^3/uL (3.5-10.8)
[2020-06-17 07:19] LABS: Calcium 9.2 mg/dL (8.6-10.3); Potassium 3.6 mmol/L (3.5-5.0)
[2020-06-17 07:24] LABS: BUN/Creatinine Ratio 15.7 (8-20); EGFR African American 31.9 (>60); EGFR Non-African American 26.4 (>60)
[2020-06-17] MEDS: Aspirin EC 81 mg TAB.EC (enteric coated) PO SCH (08:22)
[2020-06-17] MEDS: CMCS: Dabigatran 150 mg CAP (NF) PO SCH ×2 (08:23→21:20)
[2020-06-17] MEDS: CMCS: Rosuvastatin 20 mg TAB (NF) PO SCH (08:25)
[2020-06-17] MEDS: Potassium Chlor 20 meq TAB.ER PO SCH (08:26)
[2020-06-17] MEDS: Fluticasone NASAL SPRAY 50MCG 16 gm SPRAY BTL INTRANASAL SCH (08:26)
[2020-06-17] MEDS: Insulin GLARGINE 100 un/ml 10 ml VIAL SUBCUT SCH (08:27)
[2020-06-17] MEDS: Ondansetron 4 mg VIAL 2 MG/ML 2 ml VIAL IV PRN (08:54)
[2020-06-18 06:45] LABS: ABS Eosinophils 0.1 10^3/ul (0-0.6); ABS Lymphocytes 0.9 10^3/ul (1.0-4.8); ABS Monocytes 0.3 10^3/ul (0-0.8); ABS Neutrophils 3.3 10^3/ul (1.5-7.7); Eosinophil % 2.1 %; Hematocrit 42 % (35-47); Hemoglobin 13.7 g/dL (12.0-16.0); Lymphocyte % 18.5 %; Mean Corpuscular HGB Conc 33 g/dL (31-36); Mean Corpuscular Hemoglobin 27 pg (27-31); Mean Corpuscular Volume 81 fL (80-97); Platelet Count 233 10^3/uL (150-450); Red Blood Count 5.15 10^6 /uL (3.70-4.87); Red Cell Distribution Width 20 % (10-15); White Blood Count 4.6 10^3/uL (3.5-10.8)
[2020-06-18 07:03] LABS: BUN/Creatinine Ratio 16.1 (8-20); Calcium 9.3 mg/dL (8.6-10.3); EGFR African American 31.7 (>60); EGFR Non-African American 26.2 (>60); Potassium 3.7 mmol/L (3.5-5.0)
[2020-06-18] MEDS: Potassium Chlor 20 meq TAB.ER PO SCH (09:08)
[2020-06-18] MEDS: Fluticasone NASAL SPRAY 50MCG 16 gm SPRAY BTL INTRANASAL SCH (09:09)
[2020-06-18] MEDS: Insulin GLARGINE 100 un/ml 10 ml VIAL SUBCUT SCH (09:10)
[2020-06-18] MEDS: Aspirin EC 81 mg TAB.EC (enteric coated) PO SCH (09:11)
[2020-06-18] MEDS: CMCS: Rosuvastatin 20 mg TAB (NF) PO SCH (09:13)
[2020-06-18] MEDS: CMCS: Dabigatran 150 mg CAP (NF) PO SCH (09:14)
[2020-06-18] MEDS: Ondansetron 4 mg VIAL 2 MG/ML 2 ml VIAL IV PRN (11:03)
[2020-06-18 11:07] VITALS: BP 109/48
== END 2020-06-18 12:25 | disposition home health service (06) | DRG 602 ==
LOC: ED 15:38 → MEDTELE 20:08
PROVIDERS: ADMIT Internal Medicine; ATTEND Internal Medicine

== ENCOUNTER 2020-10-15 12:20 | Inpatient (IN) ==
[2020-10-15 14:32] LABS: ABS Basophils 0.1 10^3/ul (0-0.2); ABS Eosinophils 0.1 10^3/ul (0-0.6); ABS Lymphocytes 0.9 10^3/ul (1.0-4.8); ABS Monocytes 0.5 10^3/ul (0-0.8); ABS Neutrophils 5.2 10^3/ul (1.5-7.7); Eosinophil % 1.2 %; Hematocrit 42 % (35-47); Hemoglobin 13.3 g/dL (12.0-16.0); Lymphocyte % 13.6 %; Mean Corpuscular HGB Conc 31 g/dL (31-36); Mean Corpuscular Hemoglobin 25 pg (27-31); Mean Corpuscular Volume 79 fL (80-97); Mean Platelet Volume 8.1 fL (7.4-10.4); Nucleated Red Blood Cells % 0.1; Platelet Count 208 10^3/uL (150-450); Red Blood Count 5.36 10^6 /uL (3.70-4.87); Red Cell Distribution Width 20 % (10-15); White Blood Count 6.7 10^3/uL (3.5-10.8)
[2020-10-15 14:38] LABS: Urine Appearance Cloudy; Urine Bilirubin Negative (Negative); Urine Blood 1+ (Negative); Urine Color Straw; Urine Glucose Negative (Negative); Urine Ketones Negative (Negative); Urine Nitrite Negative (Negative); Urine Protein 1+(30 mg/dL) (Negative); Urine Specific Gravity 1.008 (1.010-1.030); Urine Urobilinogen Negative (Negative)
[2020-10-15 14:42] LABS: Activated Partial Thrombo Time 65.8 seconds (26.0-38.0); INR 2.23 (0.82-1.09)
[2020-10-15] MEDS ORDERED: Linezolid 600 MG IVPREMIX(*) 600 MG/300 ML BAG IVPB ONE (14:42)
[2020-10-15 15:02] LABS: Albumin 3.2 g/dL (3.2-5.2); Anion Gap 6 mmol/L (2-11); CO2 Carbon Dioxide 31 mmol/L (22-32); Calcium 9.5 mg/dL (8.6-10.3); Chloride 98 mmol/L (101-111); Sodium 135 mmol/L (135-145); Urine Bacteria 1+ (Absent); Urine Red Blood Cell Trace(0-2/hpf) (Absent); Urine Squamous Epithelial Cell Present (Absent); Urine White Blood Cell Trace(0-5/hpf) (Absent)
[2020-10-15 15:08] LABS: ALT 11 U/L (7-52); AST 21 U/L (13-39); Albumin/Globulin Ratio 0.8 (1-3); Alkaline Phosphatase 258 U/L (34-104); BUN/Creatinine Ratio 16.9 (8-20); Blood Urea Nitrogen 32 mg/dL (6-24); C Reactive Protein 31.26 mg/L (<8.01); Creatine Kinase 69 U/L (10-223); EGFR African American 32.2 (>60); EGFR Non-African American 26.6 (>60); Glucose 123 mg/dL (70-100); Total Protein 7.2 g/dL (6.4-8.9)
[2020-10-15 15:10] LABS: CKMB ng/mL 9.8 ng/mL (0.6-6.3); Troponin I 0.04 ng/mL (<0.03)
[2020-10-15] MEDS ORDERED: Bumetanide IV 0.25 MG/ML 4 ml VIAL (1 mg) SLOW PUSH ONE (17:22)
[2020-10-15] MEDS ORDERED: CLOTRIMAZOLE 1% TOPICAL PRN (18:34)
[2020-10-15] MEDS ORDERED: Albuterol 2.5mg/3 ml (0.083%) NEB.SOLN INH PRN (18:34)
[2020-10-15] MEDS ORDERED: Dextrose 50% Syringe 50 ml 25 GM/50 ML SYRINGE IV PUSH PRN (18:43)
[2020-10-15] MEDS ORDERED: Albuterol HFA INHALER 8 gm MDI INH PRN (20:20)
[2020-10-15] MEDS ORDERED: Clotrimazole 1% CREAM 30 gm TOPICAL PRN (20:32)
[2020-10-15] MEDS: CMCS: Dabigatran 150 mg CAP (NF) PO SCH (22:40)
[2020-10-15] MEDS: Triamcinolone 0.5% OINT 1 TUBE TOPICAL SCH (22:41)
[2020-10-15 22:49] LABS: Troponin I 0.03 ng/mL (<0.03)
[2020-10-15] MEDS: Acetaminop/Codeine 300mg/30mg TAB PO PRN (22:51)
[2020-10-16 01:22] LABS: Troponin I 0.03 ng/mL (<0.03)
[2020-10-16 06:28] LABS: ABS Basophils 0.1 10^3/ul (0-0.2); ABS Eosinophils 0.1 10^3/ul (0-0.6); ABS Monocytes 0.5 10^3/ul (0-0.8); ABS Neutrophils 4.3 10^3/ul (1.5-7.7); Eosinophil % 1.5 %; Hematocrit 42 % (35-47); Hemoglobin 13.2 g/dL (12.0-16.0); Lymphocyte % 16.4 %; Mean Corpuscular HGB Conc 32 g/dL (31-36); Mean Corpuscular Hemoglobin 25 pg (27-31); Mean Corpuscular Volume 78 fL (80-97); Mean Platelet Volume 8.1 fL (7.4-10.4); Nucleated Red Blood Cells % 0.1; Platelet Count 218 10^3/uL (150-450); Red Blood Count 5.31 10^6 /uL (3.70-4.87); Red Cell Distribution Width 20 % (10-15); White Blood Count 5.9 10^3/uL (3.5-10.8)
[2020-10-16 06:52] LABS: Albumin 3.2 g/dL (3.2-5.2); Albumin/Globulin Ratio 0.8 (1-3); BUN/Creatinine Ratio 16.7 (8-20); C Reactive Protein 37.98 mg/L (<8.01); Calcium 9.6 mg/dL (8.6-10.3); EGFR African American 31.6 (>60); EGFR Non-African American 26.1 (>60); Globulin 3.9 g/dL (2-4); Magnesium 2.4 mg/dL (1.9-2.7); Potassium 3.6 mmol/L (3.5-5.0); Total Protein 7.1 g/dL (6.4-8.9)
[2020-10-16 07:04] LABS: TSH Ultra Thyroid Stim Horm 11.37 mcIU/mL (0.34-5.60)
[2020-10-16] MEDS: Aspirin EC 81 mg TAB.EC (enteric coated) PO SCH (08:00)
[2020-10-16] MEDS: CMCS: Dabigatran 150 mg CAP (NF) PO SCH ×2 (08:00→21:36)
[2020-10-16] MEDS: Potassium Chlor 20 meq TAB.ER PO SCH (08:00)
[2020-10-16] MEDS: Insulin GLARGINE 100 un/ml 10 ml VIAL SUBCUT SCH (08:16)
[2020-10-16] MEDS: Bumetanide IV 0.25 MG/ML 4 ml VIAL (1 mg) SLOW PUSH SCH ×2 (08:39→09:55)
[2020-10-16] MEDS: Triamcinolone 0.5% OINT 1 TUBE TOPICAL SCH (08:40)
[2020-10-16] MEDS ORDERED: CMCS: Rosuvastatin 20 mg TAB (NF) PO SCH (09:00)
[2020-10-16] MEDS ORDERED: Potassium Chlor 20 meq TAB.ER PO ONE (09:50)
[2020-10-16] MEDS ORDERED: Perflutren Lipid Microsphere 3 ML VIAL ONE (09:58)
[2020-10-16] MEDS: Acetaminop/Codeine 300mg/30mg TAB PO PRN (21:35)
[2020-10-17 07:32] LABS: ABS Eosinophils 0.1 10^3/ul (0-0.6); ABS Monocytes 0.4 10^3/ul (0-0.8); ABS Neutrophils 4.4 10^3/ul (1.5-7.7); Eosinophil % 1.4 %; Hematocrit 40 % (35-47); Hemoglobin 12.3 g/dL (12.0-16.0); Lymphocyte % 17.4 %; Mean Corpuscular HGB Conc 31 g/dL (31-36); Mean Corpuscular Hemoglobin 25 pg (27-31); Mean Corpuscular Volume 79 fL (80-97); Mean Platelet Volume 8.4 fL (7.4-10.4); Nucleated Red Blood Cells % 0.2; Platelet Count 215 10^3/uL (150-450); Red Blood Count 5.02 10^6 /uL (3.70-4.87); Red Cell Distribution Width 20 % (10-15); White Blood Count 5.9 10^3/uL (3.5-10.8)
[2020-10-17] MEDS: Potassium Chlor 20 meq TAB.ER PO ONE ×2 (09:08→09:10)
[2020-10-17] MEDS: CMCS: Rosuvastatin 20 mg TAB (NF) PO SCH (09:09)
[2020-10-17] MEDS: Potassium Chlor 20 meq TAB.ER PO SCH (09:09)
[2020-10-17] MEDS: Aspirin EC 81 mg TAB.EC (enteric coated) PO SCH (09:09)
[2020-10-17] MEDS: CMCS: Dabigatran 150 mg CAP (NF) PO SCH ×2 (09:14→19:54)
[2020-10-17] MEDS: Insulin GLARGINE 100 un/ml 10 ml VIAL SUBCUT SCH (09:15)
[2020-10-17] MEDS: Bumetanide IV 0.25 MG/ML 4 ml VIAL (1 mg) SLOW PUSH SCH (09:16)
[2020-10-17 09:33] LABS: Albumin 3.2 g/dL (3.2-5.2); Albumin/Globulin Ratio 0.8 (1-3); C Reactive Protein 34.88 mg/L (<8.01); Calcium 9.4 mg/dL (8.6-10.3); EGFR African American 34.3 (>60); EGFR Non-African American 28.3 (>60); Globulin 3.8 g/dL (2-4); Magnesium 2.5 mg/dL (1.9-2.7); Total Bilirubin 0.9 mg/dL (0.2-1.0)
[2020-10-17] MEDS ORDERED: Bumetanide IV 0.25 MG/ML 4 ml VIAL (1 mg) SLOW PUSH ONE (14:31)
[2020-10-17] MEDS: Acetaminop/Codeine 300mg/30mg TAB PO PRN (19:53)
[2020-10-17] MEDS ORDERED: Al Hydrox/Mg Hydrox/Simet LIQ 30 ML UDC PO ONE (20:54)
[2020-10-18] MEDS: Acetaminop/Codeine 300mg/30mg TAB PO PRN (03:16)
[2020-10-18 04:23] LABS: ABS Eosinophils 0.1 10^3/ul (0-0.6); ABS Lymphocytes 0.9 10^3/ul (1.0-4.8); ABS Monocytes 0.4 10^3/ul (0-0.8); ABS Neutrophils 3.9 10^3/ul (1.5-7.7); Eosinophil % 1.2 %; Hematocrit 38 % (35-47); Hemoglobin 12.1 g/dL (12.0-16.0); Lymphocyte % 16.6 %; Mean Corpuscular HGB Conc 32 g/dL (31-36); Mean Corpuscular Hemoglobin 25 pg (27-31); Mean Corpuscular Volume 78 fL (80-97); Mean Platelet Volume 7.9 fL (7.4-10.4); Nucleated Red Blood Cells % 0.1; Platelet Count 203 10^3/uL (150-450); Red Blood Count 4.87 10^6 /uL (3.70-4.87); Red Cell Distribution Width 20 % (10-15); White Blood Count 5.3 10^3/uL (3.5-10.8)
[2020-10-18 04:40] LABS: BUN/Creatinine Ratio 17.7 (8-20); C Reactive Protein 27.48 mg/L (<8.01); Calcium 8.5 mg/dL (8.6-10.3); EGFR African American 37.9 (>60); EGFR Non-African American 31.3 (>60); Potassium 3.6 mmol/L (3.5-5.0)
[2020-10-18] MEDS: CMCS: Dabigatran 150 mg CAP (NF) PO SCH (08:57)
[2020-10-18] MEDS: Potassium Chlor 20 meq TAB.ER PO SCH (08:58)
[2020-10-18] MEDS: Insulin GLARGINE 100 un/ml 10 ml VIAL SUBCUT SCH (08:59)
[2020-10-18] MEDS: Aspirin EC 81 mg TAB.EC (enteric coated) PO SCH (08:59)
[2020-10-18 10:29] VITALS: BP 105/57
[2020-10-18] MEDS ORDERED: Potassium Chlor 20 meq TAB.ER PO ONE (10:43)
[2020-10-18] MEDS: Bumetanide IV 0.25 MG/ML 4 ml VIAL (1 mg) SLOW PUSH SCH (11:09)
== END 2020-10-18 13:06 | disposition home or self-care (01) | DRG 291 ==
LOC: ED 12:20 → MEDTELE 20:07
PROVIDERS: ADMIT Internal Medicine; ATTEND Internal Medicine

== ENCOUNTER 2020-11-28 10:24 | Inpatient (IN) ==
[2020-11-28] MEDS ORDERED: NS 0.9% 1000 ml BAG 1,000 ML IV ONE (10:45)
[2020-11-28 11:13] LABS: Urine Appearance Cloudy; Urine Bilirubin Negative (Negative); Urine Blood 3+ (Negative); Urine Color Yellow; Urine Glucose 3+(>=500 mg/dL) (Negative); Urine Ketones Negative (Negative); Urine Nitrite Negative (Negative); Urine Protein 1+(30 mg/dL) (Negative); Urine Specific Gravity 1.006 (1.010-1.030); Urine Urobilinogen Negative (Negative)
[2020-11-28 11:15] LABS: ABS Eosinophils 0.1 10^3/ul (0-0.6); ABS Lymphocytes 0.7 10^3/ul (1.0-4.8); ABS Monocytes 0.5 10^3/ul (0-0.8); ABS Neutrophils 8.1 10^3/ul (1.5-7.7); Eosinophil % 0.8 %; Hematocrit 42 % (35-47); Hemoglobin 12.8 g/dL (12.0-16.0); Lymphocyte % 7.2 %; Mean Corpuscular HGB Conc 31 g/dL (31-36); Mean Corpuscular Hemoglobin 24 pg (27-31); Mean Corpuscular Volume 78 fL (80-97); Mean Platelet Volume 9.3 fL (7.4-10.4); Nucleated Red Blood Cells % 0.1; Platelet Count 119 10^3/uL (150-450); Red Blood Count 5.39 10^6 /uL (3.70-4.87); White Blood Count 9.5 10^3/uL (3.5-10.8)
[2020-11-28 11:16] LABS: Urine Bacteria Absent (Absent); Urine Red Blood Cell Trace(0-2/hpf) (Absent); Urine White Blood Cell 3+(>20/hpf) (Absent)
[2020-11-28 11:22] LABS: Activated Partial Thrombo Time 74.2 seconds (26.0-38.0); INR 2.87 (0.82-1.09)
[2020-11-28 11:40] LABS: Troponin I 0.05 ng/mL (<0.03)
[2020-11-28 11:50] LABS: ALT 91 U/L (7-52); Albumin 3.1 g/dL (3.2-5.2); Albumin/Globulin Ratio 0.8 (1-3); Alkaline Phosphatase 530 U/L (34-104); BUN/Creatinine Ratio 14.5 (8-20); Blood Urea Nitrogen 37 mg/dL (6-24); CO2 Carbon Dioxide 24 mmol/L (22-32); Chloride 98 mmol/L (101-111); EGFR African American 22.7 (>60); EGFR Non-African American 18.7 (>60); Globulin 4.1 g/dL (2-4); Glucose 348 mg/dL (70-100); Sodium 129 mmol/L (135-145); Total Protein 7.2 g/dL (6.4-8.9)
[2020-11-28 11:55] LABS: Anion Gap 7 mmol/L (2-11)
[2020-11-28 12:19] LABS: Microcytosis 1+; Red Cell Distribution Width 23 % (10-15)
[2020-11-28 12:20] LABS: Polychromasia 1+
[2020-11-28 12:31] LABS: Potassium Redraw 4.4 mmol/L (3.5-5.0)
[2020-11-28] MEDS ORDERED: TRIAMCINOLONE ACETONIDE TOPICAL SCH (14:15)
[2020-11-28 14:59] LABS: Troponin I 0.05 ng/mL (<0.03)
[2020-11-28 15:17] LABS: Glucose 254 mg/dL (70-100)
[2020-11-28] MEDS ORDERED: Albuterol HFA INHALER 8 gm MDI INH PRN (15:37)
[2020-11-28] MEDS ORDERED: Dextrose 50% Syringe 50 ml 25 GM/50 ML SYRINGE IV PUSH PRN (16:22)
[2020-11-28] MEDS: Pantoprazole VIAL 40 MG VIAL IV SCH (17:06)
[2020-11-28 18:00] LABS: Troponin I 0.05 ng/mL (<0.03)
[2020-11-28] MEDS: CMCS: Dabigatran 150 mg CAP (NF) PO SCH (20:15)
[2020-11-28] MEDS: Ondansetron 4 mg VIAL 2 MG/ML 2 ml VIAL IV PRN (20:24)
[2020-11-28] MEDS ORDERED: Al Hydrox/Mg Hydrox/Simet LIQ 30 ML UDC PO ONE (20:53)
[2020-11-28 21:09] LABS: Troponin I 0.04 ng/mL (<0.03)
[2020-11-28] MEDS ORDERED: oxyCODONE/Acetamin 5/325 mg TAB PO ONE (23:37)
[2020-11-29 06:23] LABS: Anion Gap 6 mmol/L (2-11); BUN/Creatinine Ratio 16.5 (8-20); Blood Urea Nitrogen 40 mg/dL (6-24); CO2 Carbon Dioxide 26 mmol/L (22-32); Calcium 8.6 mg/dL (8.6-10.3); Chloride 103 mmol/L (101-111); EGFR African American 24.1 (>60); EGFR Non-African American 19.9 (>60); Glucose 99 mg/dL (70-100); Potassium 3.7 mmol/L (3.5-5.0); Sodium 135 mmol/L (135-145)
[2020-11-29 06:31] LABS: ABS Basophils 0.1 10^3/ul (0-0.2); ABS Eosinophils 0.1 10^3/ul (0-0.6); ABS Monocytes 0.4 10^3/ul (0-0.8); ABS Neutrophils 6.9 10^3/ul (1.5-7.7); Hematocrit 37 % (35-47); Hemoglobin 11.6 g/dL (12.0-16.0); Lymphocyte % 11.7 %; Mean Corpuscular HGB Conc 31 g/dL (31-36); Mean Corpuscular Hemoglobin 24 pg (27-31); Mean Corpuscular Volume 77 fL (80-97); Nucleated Red Blood Cells % 0.1; Platelet Count 104 10^3/uL (150-450); Red Blood Count 4.82 10^6 /uL (3.70-4.87); Red Cell Distribution Width 23 % (10-15); White Blood Count 8.5 10^3/uL (3.5-10.8)
[2020-11-29] MEDS: Insulin GLARGINE 100 un/ml 10 ml VIAL SUBCUT SCH (09:38)
[2020-11-29] MEDS: CMCS: Rosuvastatin 20 mg TAB (NF) PO SCH (09:39)
[2020-11-29] MEDS: Aspirin EC 81 mg TAB.EC (enteric coated) PO SCH (09:39)
[2020-11-29] MEDS: Potassium Chlor 10 meq TAB PO SCH (09:39)
[2020-11-29] MEDS: Fluticasone NASAL SPRAY 50MCG 16 gm SPRAY BTL INTRANASAL SCH (09:40)
[2020-11-29] MEDS: CMCS: Dabigatran 150 mg CAP (NF) PO SCH ×2 (09:40→21:03)
[2020-11-29 13:13] LABS: ALT 73 U/L (7-52); AST 77 U/L (13-39); Albumin 2.7 g/dL (3.2-5.2); Albumin/Globulin Ratio 0.8 (1-3); Alkaline Phosphatase 440 U/L (34-104); Globulin 3.6 g/dL (2-4); Indirect Bilirubin 0.7 mg/dL (0.3-1.0); Total Protein 6.3 g/dL (6.4-8.9)
[2020-11-29 14:07] LABS: Acetaminophen < 15 mcg/mL
[2020-11-29] MEDS: Pantoprazole VIAL 40 MG VIAL IV SCH (17:14)
[2020-11-29] MEDS ORDERED: Senna TAB 8.6 mg TAB PO PRN (18:50)
[2020-11-29 21:37] LABS: Glucose Confirmatory 427 mg/dL (70-100)
[2020-11-30 04:35] LABS: ABS Basophils 0.1 10^3/ul (0-0.2); ABS Eosinophils 0.1 10^3/ul (0-0.6); ABS Lymphocytes 0.8 10^3/ul (1.0-4.8); ABS Monocytes 0.5 10^3/ul (0-0.8); ABS Neutrophils 6.1 10^3/ul (1.5-7.7); Eosinophil % 0.9 %; Hematocrit 37 % (35-47); Hemoglobin 11.4 g/dL (12.0-16.0); Lymphocyte % 10.3 %; Mean Corpuscular HGB Conc 31 g/dL (31-36); Mean Corpuscular Hemoglobin 24 pg (27-31); Mean Corpuscular Volume 78 fL (80-97); Mean Platelet Volume 8.7 fL (7.4-10.4); Platelet Count 110 10^3/uL (150-450); Red Blood Count 4.74 10^6 /uL (3.70-4.87); Red Cell Distribution Width 23 % (10-15); White Blood Count 7.6 10^3/uL (3.5-10.8)
[2020-11-30 04:44] LABS: Albumin 2.6 g/dL (3.2-5.2); Albumin/Globulin Ratio 0.7 (1-3); BUN/Creatinine Ratio 19.6 (8-20); C Reactive Protein 22.3 mg/L (<8.01); Calcium 8.6 mg/dL (8.6-10.3); EGFR African American 26.3 (>60); EGFR Non-African American 21.8 (>60); Globulin 3.6 g/dL (2-4); Potassium 3.8 mmol/L (3.5-5.0); Total Bilirubin 1.3 mg/dL (0.2-1.0); Total Protein 6.2 g/dL (6.4-8.9)
[2020-11-30] MEDS: Aspirin EC 81 mg TAB.EC (enteric coated) PO SCH (08:59)
[2020-11-30] MEDS: Potassium Chlor 10 meq TAB PO SCH (09:00)
[2020-11-30] MEDS: CMCS: Rosuvastatin 20 mg TAB (NF) PO SCH (09:01)
[2020-11-30] MEDS: CMCS: Dabigatran 150 mg CAP (NF) PO SCH ×2 (09:01→21:57)
[2020-11-30] MEDS: Insulin GLARGINE 100 un/ml 10 ml VIAL SUBCUT SCH (09:02)
[2020-11-30] MEDS: Fluticasone NASAL SPRAY 50MCG 16 gm SPRAY BTL INTRANASAL SCH (09:05)
[2020-11-30] MEDS: Polyethylene Glycol 3350 17 GM PACKET PO SCH (09:06)
[2020-11-30] MEDS ORDERED: Aztreonam 2 GM in NS 0.9% 100 ml BAG 100 ML IV SCH (17:30)
[2020-11-30] MEDS: Pantoprazole VIAL 40 MG VIAL IV SCH (17:31)
[2020-11-30 18:51] LABS: % Iron Saturation 25 % (15-55); Iron 67 ug/dL (50-212); Total Iron Binding Capacity 265 mcg/dL (250-450); Transferrin 189 mg/dL (203-362); Unsaturated Iron Binding < 250 ug/dL
[2020-11-30] MEDS: AZTREONAM IV SCH (19:42)
[2020-11-30] MEDS: NS 0.9% IV SCH (19:42)
[2020-12-01] MEDS: NS 0.9% IV SCH ×3 (04:12→17:20)
[2020-12-01] MEDS: AZTREONAM IV SCH ×3 (04:12→17:20)
[2020-12-01] MEDS: Ondansetron 4 mg VIAL 2 MG/ML 2 ml VIAL IV PRN (04:12)
[2020-12-01] MEDS: CMCS: Dabigatran 150 mg CAP (NF) PO SCH ×2 (08:44→19:56)
[2020-12-01] MEDS: Potassium Chlor 10 meq TAB PO SCH (08:46)
[2020-12-01] MEDS: Aspirin EC 81 mg TAB.EC (enteric coated) PO SCH (08:46)
[2020-12-01] MEDS: CMCS: Rosuvastatin 20 mg TAB (NF) PO SCH (08:47)
[2020-12-01] MEDS: Fluticasone NASAL SPRAY 50MCG 16 gm SPRAY BTL INTRANASAL SCH (08:48)
[2020-12-01] MEDS: Polyethylene Glycol 3350 17 GM PACKET PO SCH (08:48)
[2020-12-01] MEDS: Insulin GLARGINE 100 un/ml 10 ml VIAL SUBCUT SCH (08:49)
[2020-12-01] MEDS: Pantoprazole VIAL 40 MG VIAL IV SCH (16:06)
[2020-12-02] MEDS: AZTREONAM IV SCH ×3 (02:03→19:06)
[2020-12-02] MEDS: NS 0.9% IV SCH ×3 (02:03→19:06)
[2020-12-02 07:03] LABS: GGTP 146 U/L (9-64.0); Rheumatoid Factor 13 IU/mL (<15)
[2020-12-02 09:20] LABS: Hepatitis B Surface Antigen Nonreactive (Nonreactive)
[2020-12-02 09:25] LABS: Hepatitis A Ab IgM Negative (Negative)
[2020-12-02 09:26] LABS: Hepatitis B Core IgM Nonreactive (Nonreactive)
[2020-12-02 09:38] LABS: Hepatitis C Antibody Negative (Negative)
[2020-12-02] MEDS: Aspirin EC 81 mg TAB.EC (enteric coated) PO SCH ×2 (11:51→12:41)
[2020-12-02] MEDS: Polyethylene Glycol 3350 17 GM PACKET PO SCH ×2 (11:52→12:21)
[2020-12-02] MEDS: Fluticasone NASAL SPRAY 50MCG 16 gm SPRAY BTL INTRANASAL SCH ×2 (11:52→12:09)
[2020-12-02] MEDS: Insulin GLARGINE 100 un/ml 10 ml VIAL SUBCUT SCH (11:52)
[2020-12-02] MEDS: CMCS: Dabigatran 150 mg CAP (NF) PO SCH ×3 (11:52→19:59)
[2020-12-02] MEDS: Potassium Chlor 10 meq TAB PO SCH ×2 (11:53→12:40)
[2020-12-02] MEDS: CMCS: Rosuvastatin 20 mg TAB (NF) PO SCH ×2 (11:53→12:42)
[2020-12-02] MEDS ORDERED: Saline NASAL SPRAY 0.65% BTL BOTH NARES PRN (16:14)
[2020-12-02] MEDS: Pantoprazole VIAL 40 MG VIAL IV SCH (16:46)
[2020-12-02 18:00] LABS: Glucose Confirmatory 464 mg/dL (70-100)
[2020-12-02] MEDS: Acetaminop/Codeine 300mg/30mg TAB PO PRN (21:30)
[2020-12-03] MEDS: Acetaminop/Codeine 300mg/30mg TAB PO PRN ×2 (03:20→20:54)
[2020-12-03 06:16] LABS: ABS Basophils 0.1 10^3/ul (0-0.2); ABS Lymphocytes 0.9 10^3/ul (1.0-4.8); ABS Monocytes 0.5 10^3/ul (0-0.8); ABS Neutrophils 5.6 10^3/ul (1.5-7.7); Eosinophil % 0.7 %; Hematocrit 33 % (35-47); Hemoglobin 10.4 g/dL (12.0-16.0); Lymphocyte % 12.6 %; Mean Corpuscular HGB Conc 31 g/dL (31-36); Mean Corpuscular Hemoglobin 24 pg (27-31); Mean Corpuscular Volume 77 fL (80-97); Mean Platelet Volume 8.6 fL (7.4-10.4); Platelet Count 146 10^3/uL (150-450); Red Blood Count 4.31 10^6 /uL (3.70-4.87); Red Cell Distribution Width 24 % (10-15)
[2020-12-03 06:35] LABS: Albumin 2.6 g/dL (3.2-5.2); Albumin/Globulin Ratio 0.8 (1-3); Calcium 8.5 mg/dL (8.6-10.3); EGFR African American 31.1 (>60); EGFR Non-African American 25.7 (>60); Globulin 3.1 g/dL (2-4); Potassium 3.8 mmol/L (3.5-5.0); Total Bilirubin 1.1 mg/dL (0.2-1.0); Total Protein 5.7 g/dL (6.4-8.9)
[2020-12-03] MEDS: Fluticasone NASAL SPRAY 50MCG 16 gm SPRAY BTL INTRANASAL SCH (08:09)
[2020-12-03] MEDS: Polyethylene Glycol 3350 17 GM PACKET PO SCH (08:09)
[2020-12-03] MEDS: Insulin GLARGINE 100 un/ml 10 ml VIAL SUBCUT SCH (08:09)
[2020-12-03] MEDS: Potassium Chlor 10 meq TAB PO SCH (08:10)
[2020-12-03] MEDS: CMCS: Rosuvastatin 20 mg TAB (NF) PO SCH (08:10)
[2020-12-03] MEDS: Aspirin EC 81 mg TAB.EC (enteric coated) PO SCH (08:10)
[2020-12-03] MEDS: CMCS: Dabigatran 150 mg CAP (NF) PO SCH ×2 (08:10→20:52)
[2020-12-03 14:18] LABS: Sm (Smith) IgG Antibody <0.2 U
[2020-12-03] MEDS: Pantoprazole VIAL 40 MG VIAL IV SCH (15:41)
[2020-12-03 17:44] LABS: Mitochondria M2 Antibody <0.1 U
[2020-12-03] MEDS: Triamcinolone 0.025% OINT 15 GM TUBE TOPICAL SCH (20:54)
[2020-12-04] MEDS: Acetaminop/Codeine 300mg/30mg TAB PO PRN ×3 (03:22→21:38)
[2020-12-04] MEDS: Fluticasone NASAL SPRAY 50MCG 16 gm SPRAY BTL INTRANASAL SCH (08:34)
[2020-12-04] MEDS: Insulin GLARGINE 100 un/ml 10 ml VIAL SUBCUT SCH (08:35)
[2020-12-04] MEDS: Potassium Chlor 10 meq TAB PO SCH (08:35)
[2020-12-04] MEDS: Polyethylene Glycol 3350 17 GM PACKET PO SCH (08:35)
[2020-12-04] MEDS: Aspirin EC 81 mg TAB.EC (enteric coated) PO SCH (08:36)
[2020-12-04] MEDS: Triamcinolone 0.025% OINT 15 GM TUBE TOPICAL SCH ×2 (08:36→20:17)
[2020-12-04] MEDS: CMCS: Dabigatran 150 mg CAP (NF) PO SCH ×2 (08:36→20:16)
[2020-12-04] MEDS: CMCS: Rosuvastatin 20 mg TAB (NF) PO SCH (08:36)
[2020-12-04 08:42] LABS: ABS Basophils 0.1 10^3/ul (0-0.2); ABS Lymphocytes 0.8 10^3/ul (1.0-4.8); ABS Monocytes 0.3 10^3/ul (0-0.8); ABS Neutrophils 5.1 10^3/ul (1.5-7.7); Eosinophil % 0.5 %; Hematocrit 34 % (35-47); Hemoglobin 10.9 g/dL (12.0-16.0); Lymphocyte % 12.4 %; Mean Corpuscular HGB Conc 32 g/dL (31-36); Mean Corpuscular Hemoglobin 25 pg (27-31); Mean Corpuscular Volume 77 fL (80-97); Mean Platelet Volume 8.4 fL (7.4-10.4); Platelet Count 178 10^3/uL (150-450); Red Blood Count 4.45 10^6 /uL (3.70-4.87); Red Cell Distribution Width 24 % (10-15); White Blood Count 6.3 10^3/uL (3.5-10.8)
[2020-12-04 08:59] LABS: Albumin 2.7 g/dL (3.2-5.2); Albumin/Globulin Ratio 0.8 (1-3); BUN/Creatinine Ratio 21.5 (8-20); Calcium 8.8 mg/dL (8.6-10.3); EGFR African American 38.2 (>60); EGFR Non-African American 31.6 (>60); Globulin 3.3 g/dL (2-4); Total Bilirubin 1.1 mg/dL (0.2-1.0)
[2020-12-04 14:44] LABS: Kappa Free Light Chain 9.51 mg/dL; Lambda Free Light Chain, S 8.38 mg/dL; Total Protein(PEP) 5.1 g/dL (6.3 - 7.9)
[2020-12-04 15:21] LABS: Liver/Kidney Microsomes Ab <5.0 U
[2020-12-04] MEDS: Pantoprazole VIAL 40 MG VIAL IV SCH (16:33)
[2020-12-05 06:34] LABS: ABS Basophils 0.1 10^3/ul (0-0.2); ABS Eosinophils 0.1 10^3/ul (0-0.6); ABS Lymphocytes 0.8 10^3/ul (1.0-4.8); ABS Monocytes 0.4 10^3/ul (0-0.8); ABS Neutrophils 3.9 10^3/ul (1.5-7.7); Hematocrit 35 % (35-47); Hemoglobin 10.7 g/dL (12.0-16.0); Lymphocyte % 15.5 %; Mean Corpuscular HGB Conc 31 g/dL (31-36); Mean Corpuscular Hemoglobin 24 pg (27-31); Mean Corpuscular Volume 80 fL (80-97); Mean Platelet Volume 8.6 fL (7.4-10.4); Platelet Count 186 10^3/uL (150-450); Red Cell Distribution Width 25 % (10-15); White Blood Count 5.2 10^3/uL (3.5-10.8)
[2020-12-05 06:41] LABS: Albumin 2.6 g/dL (3.2-5.2); Albumin/Globulin Ratio 0.8 (1-3); BUN/Creatinine Ratio 22.3 (8-20); Calcium 8.7 mg/dL (8.6-10.3); EGFR African American 45.9 (>60); EGFR Non-African American 37.9 (>60); Globulin 3.2 g/dL (2-4); Potassium 3.7 mmol/L (3.5-5.0); Total Bilirubin 0.9 mg/dL (0.2-1.0); Total Protein 5.8 g/dL (6.4-8.9)
[2020-12-05 08:48] LABS: Albumin/Globulin Ratio 0.64; Gamma Globulin 1.4 g/dL (0.6-1.6)
[2020-12-05] MEDS: Aspirin EC 81 mg TAB.EC (enteric coated) PO SCH (08:51)
[2020-12-05] MEDS: Potassium Chlor 10 meq TAB PO SCH (08:52)
[2020-12-05] MEDS: Polyethylene Glycol 3350 17 GM PACKET PO SCH (08:52)
[2020-12-05] MEDS: Insulin GLARGINE 100 un/ml 10 ml VIAL SUBCUT SCH (08:54)
[2020-12-05] MEDS: CMCS: Dabigatran 150 mg CAP (NF) PO SCH ×2 (08:55→20:35)
[2020-12-05] MEDS: CMCS: Rosuvastatin 20 mg TAB (NF) PO SCH (08:56)
[2020-12-05] MEDS: Fluticasone NASAL SPRAY 50MCG 16 gm SPRAY BTL INTRANASAL SCH (08:57)
[2020-12-05] MEDS: Triamcinolone 0.025% OINT 15 GM TUBE TOPICAL SCH ×2 (08:58→20:45)
[2020-12-05 09:46] LABS: Polychromasia 2+
[2020-12-05 09:47] LABS: Microcytosis 1+
[2020-12-05 14:00] LABS: Magnesium 1.6 mg/dL (1.9-2.7)
[2020-12-05 17:02] LABS: Albumin 5.6 mg/dL; Albumin/Globulin Ratio 0.19; Gamma Globulin 4.6 mg/dL; Protein,Total, Random Urine 35 mg/dL
[2020-12-05] MEDS: Pantoprazole VIAL 40 MG VIAL IV SCH (17:13)
[2020-12-05] MEDS ORDERED: Magnesium Sulfate 2 gm BAG 2 GM/50 ML BAG IVPB ONE (18:40)
[2020-12-05] MEDS: Acetaminop/Codeine 300mg/30mg TAB PO PRN (20:36)
[2020-12-06] MEDS: Acetaminop/Codeine 300mg/30mg TAB PO PRN ×3 (04:13→23:42)
[2020-12-06 06:35] LABS: ABS Basophils 0.1 10^3/ul (0-0.2); ABS Lymphocytes 0.7 10^3/ul (1.0-4.8); ABS Monocytes 0.3 10^3/ul (0-0.8); ABS Neutrophils 3.8 10^3/ul (1.5-7.7); Eosinophil % 0.5 %; Hematocrit 34 % (35-47); Hemoglobin 10.6 g/dL (12.0-16.0); Lymphocyte % 14.3 %; Mean Corpuscular HGB Conc 31 g/dL (31-36); Mean Corpuscular Hemoglobin 25 pg (27-31); Mean Corpuscular Volume 79 fL (80-97); Mean Platelet Volume 8.7 fL (7.4-10.4); Platelet Count 203 10^3/uL (150-450); Red Blood Count 4.31 10^6 /uL (3.70-4.87); Red Cell Distribution Width 26 % (10-15); White Blood Count 4.9 10^3/uL (3.5-10.8)
[2020-12-06 06:51] LABS: Albumin 2.6 g/dL (3.2-5.2); Albumin/Globulin Ratio 0.8 (1-3); BUN/Creatinine Ratio 18.8 (8-20); Calcium 8.4 mg/dL (8.6-10.3); EGFR African American 44.1 (>60); EGFR Non-African American 36.4 (>60); Globulin 3.2 g/dL (2-4); Potassium 3.3 mmol/L (3.5-5.0); Total Bilirubin 0.9 mg/dL (0.2-1.0); Total Protein 5.8 g/dL (6.4-8.9)
[2020-12-06] MEDS: Potassium Chlor 10 meq TAB PO SCH (07:50)
[2020-12-06] MEDS: Aspirin EC 81 mg TAB.EC (enteric coated) PO SCH (07:50)
[2020-12-06] MEDS: Polyethylene Glycol 3350 17 GM PACKET PO SCH (07:52)
[2020-12-06] MEDS: Insulin GLARGINE 100 un/ml 10 ml VIAL SUBCUT SCH (07:52)
[2020-12-06] MEDS: Fluticasone NASAL SPRAY 50MCG 16 gm SPRAY BTL INTRANASAL SCH (07:52)
[2020-12-06] MEDS: CMCS: Dabigatran 150 mg CAP (NF) PO SCH ×2 (07:52→20:30)
[2020-12-06] MEDS: CMCS: Rosuvastatin 20 mg TAB (NF) PO SCH (07:52)
[2020-12-06] MEDS: Triamcinolone 0.025% OINT 15 GM TUBE TOPICAL SCH ×2 (07:54→20:32)
[2020-12-06] MEDS ORDERED: KCL 20 MEQ/100 ML IVPREMIX 20 MEQ/100 ML BAG IV SCH (09:00)
[2020-12-06] MEDS ORDERED: Potassium Chlor 20 meq TAB.ER PO ONE (12:00)
[2020-12-06] MEDS: KCL 20 MEQ/100 ML IVPREMIX 20 MEQ/100 ML BAG IV SCH ×2 (12:28→14:13)
[2020-12-06] MEDS: Pantoprazole VIAL 40 MG VIAL IV SCH (16:10)
[2020-12-07 05:22] LABS: ABS Basophils 0.1 10^3/ul (0-0.2); ABS Lymphocytes 0.8 10^3/ul (1.0-4.8); ABS Monocytes 0.5 10^3/ul (0-0.8); ABS Neutrophils 3.8 10^3/ul (1.5-7.7); Eosinophil % 0.7 %; Hematocrit 34 % (35-47); Hemoglobin 10.6 g/dL (12.0-16.0); Lymphocyte % 16.1 %; Mean Corpuscular HGB Conc 31 g/dL (31-36); Mean Corpuscular Hemoglobin 24 pg (27-31); Mean Corpuscular Volume 79 fL (80-97); Mean Platelet Volume 8.2 fL (7.4-10.4); Nucleated Red Blood Cells % 0.1; Platelet Count 226 10^3/uL (150-450); Red Blood Count 4.36 10^6 /uL (3.70-4.87); Red Cell Distribution Width 26 % (10-15); White Blood Count 5.1 10^3/uL (3.5-10.8)
[2020-12-07 05:38] LABS: Albumin 2.6 g/dL (3.2-5.2); Albumin/Globulin Ratio 0.8 (1-3); BUN/Creatinine Ratio 16.7 (8-20); Calcium 8.8 mg/dL (8.6-10.3); EGFR African American 46.3 (>60); EGFR Non-African American 38.3 (>60); Globulin 3.2 g/dL (2-4); Potassium 3.9 mmol/L (3.5-5.0); Total Bilirubin 0.9 mg/dL (0.2-1.0); Total Protein 5.8 g/dL (6.4-8.9)
[2020-12-07] MEDS: Polyethylene Glycol 3350 17 GM PACKET PO SCH (07:52)
[2020-12-07] MEDS: Potassium Chlor 10 meq TAB PO SCH (10:59)
[2020-12-07] MEDS: CMCS: Dabigatran 150 mg CAP (NF) PO SCH ×2 (11:04→21:04)
[2020-12-07] MEDS: CMCS: Rosuvastatin 20 mg TAB (NF) PO SCH (11:06)
[2020-12-07] MEDS: Acetaminop/Codeine 300mg/30mg TAB PO PRN ×2 (11:06→17:03)
[2020-12-07] MEDS: Insulin GLARGINE 100 un/ml 10 ml VIAL SUBCUT SCH (11:13)
[2020-12-07] MEDS: Aspirin EC 81 mg TAB.EC (enteric coated) PO SCH (11:16)
[2020-12-07] MEDS: Fluticasone NASAL SPRAY 50MCG 16 gm SPRAY BTL INTRANASAL SCH (11:16)
[2020-12-07] MEDS: Triamcinolone 0.025% OINT 15 GM TUBE TOPICAL SCH ×3 (11:17→21:05)
[2020-12-07] MEDS: Pantoprazole VIAL 40 MG VIAL IV SCH (16:58)
[2020-12-07] MEDS: diPHENhydraMINE 25 mg TAB PO PRN (18:13)
[2020-12-07] MEDS ORDERED: Calcium Carb (TUMS) 500 mg CHEW TAB PO PRN (22:05)
[2020-12-07] MEDS: Al Hydrox/Mg Hydrox/Simet LIQ 30 ML UDC PO PRN (22:14)
[2020-12-08] MEDS: Al Hydrox/Mg Hydrox/Simet LIQ 30 ML UDC PO PRN ×4 (06:11→23:52)
[2020-12-08] MEDS: Triamcinolone 0.025% OINT 15 GM TUBE TOPICAL SCH ×2 (07:28→23:54)
[2020-12-08] MEDS ORDERED: Insulin GLARGINE 100 un/ml 10 ml VIAL SUBCUT SCH (09:00)
[2020-12-08] MEDS: Aspirin EC 81 mg TAB.EC (enteric coated) PO SCH (09:08)
[2020-12-08] MEDS: Potassium Chlor 10 meq TAB PO SCH (09:08)
[2020-12-08] MEDS: diPHENhydraMINE 25 mg TAB PO PRN ×4 (09:10→23:51)
[2020-12-08] MEDS: CMCS: Dabigatran 150 mg CAP (NF) PO SCH ×2 (09:15→23:48)
[2020-12-08] MEDS: Acetaminop/Codeine 300mg/30mg TAB PO PRN (09:16)
[2020-12-08] MEDS: Fluticasone NASAL SPRAY 50MCG 16 gm SPRAY BTL INTRANASAL SCH (09:18)
[2020-12-08] MEDS: Polyethylene Glycol 3350 17 GM PACKET PO SCH (09:19)
[2020-12-08] MEDS: Pantoprazole VIAL 40 MG VIAL IV SCH (15:37)
[2020-12-08] MEDS ORDERED: Dextrose 50% Syringe 50 ml 25 GM/50 ML SYRINGE IV PUSH PRN (18:38)
[2020-12-09] MEDS: Morphine ORAL CONCENTRATE 5 MG/0.25 ML ORAL.SYRIN PO PRN ×5 (04:00→21:43)
[2020-12-09] MEDS: Potassium Chlor 10 meq TAB PO SCH (08:33)
[2020-12-09] MEDS: diPHENhydraMINE 25 mg TAB PO PRN ×2 (08:33→22:54)
[2020-12-09] MEDS: CMCS: Dabigatran 150 mg CAP (NF) PO SCH ×2 (08:33→21:42)
[2020-12-09] MEDS: Aspirin EC 81 mg TAB.EC (enteric coated) PO SCH (08:33)
[2020-12-09] MEDS: Fluticasone NASAL SPRAY 50MCG 16 gm SPRAY BTL INTRANASAL SCH (08:34)
[2020-12-09] MEDS: Polyethylene Glycol 3350 17 GM PACKET PO SCH (08:34)
[2020-12-09] MEDS: Triamcinolone 0.025% OINT 15 GM TUBE TOPICAL SCH ×2 (08:36→21:45)
[2020-12-09] MEDS: Pantoprazole VIAL 40 MG VIAL IV SCH (16:35)
[2020-12-09] MEDS: Al Hydrox/Mg Hydrox/Simet LIQ 30 ML UDC PO PRN (22:54)
[2020-12-10] MEDS: Al Hydrox/Mg Hydrox/Simet LIQ 30 ML UDC PO PRN ×3 (07:20→21:50)
[2020-12-10] MEDS: diPHENhydraMINE 25 mg TAB PO PRN ×2 (07:20→21:51)
[2020-12-10] MEDS: Morphine ORAL CONCENTRATE 5 MG/0.25 ML ORAL.SYRIN PO PRN ×4 (07:20→21:51)
[2020-12-10] MEDS: Potassium Chlor 10 meq TAB PO SCH (09:59)
[2020-12-10] MEDS: Polyethylene Glycol 3350 17 GM PACKET PO SCH (10:00)
[2020-12-10] MEDS: Aspirin EC 81 mg TAB.EC (enteric coated) PO SCH (10:12)
[2020-12-10] MEDS: CMCS: Dabigatran 150 mg CAP (NF) PO SCH ×2 (10:12→21:54)
[2020-12-10] MEDS: Fluticasone NASAL SPRAY 50MCG 16 gm SPRAY BTL INTRANASAL SCH (10:14)
[2020-12-10] MEDS: Triamcinolone 0.025% OINT 15 GM TUBE TOPICAL SCH ×2 (10:14→21:47)
[2020-12-10] MEDS: Pantoprazole VIAL 40 MG VIAL IV SCH (16:07)
[2020-12-11] MEDS: Morphine ORAL CONCENTRATE 5 MG/0.25 ML ORAL.SYRIN PO PRN ×5 (04:45→21:17)
[2020-12-11] MEDS: Polyethylene Glycol 3350 17 GM PACKET PO SCH (07:54)
[2020-12-11] MEDS: Al Hydrox/Mg Hydrox/Simet LIQ 30 ML UDC PO PRN (08:36)
[2020-12-11] MEDS: CMCS: Dabigatran 150 mg CAP (NF) PO SCH ×2 (08:37→21:20)
[2020-12-11] MEDS: diPHENhydraMINE 25 mg TAB PO PRN ×2 (08:37→21:20)
[2020-12-11] MEDS: Aspirin EC 81 mg TAB.EC (enteric coated) PO SCH (08:37)
[2020-12-11] MEDS: Potassium Chlor 10 meq TAB PO SCH (08:37)
[2020-12-11] MEDS: Fluticasone NASAL SPRAY 50MCG 16 gm SPRAY BTL INTRANASAL SCH (08:38)
[2020-12-11] MEDS: Triamcinolone 0.025% OINT 15 GM TUBE TOPICAL SCH ×2 (08:38→21:23)
[2020-12-11] MEDS: Pantoprazole VIAL 40 MG VIAL IV SCH (14:41)
[2020-12-11] MEDS: Morphine ORAL CONCENTRATE 5 MG/0.25 ML ORAL.SYRIN PO SCH (18:26)
[2020-12-12] MEDS: Morphine ORAL CONCENTRATE 5 MG/0.25 ML ORAL.SYRIN PO SCH ×6 (00:36→22:10)
[2020-12-12] MEDS: Morphine ORAL CONCENTRATE 5 MG/0.25 ML ORAL.SYRIN PO PRN ×2 (02:35→14:05)
[2020-12-12] MEDS: CMCS: Dabigatran 150 mg CAP (NF) PO SCH ×2 (10:17→20:01)
[2020-12-12] MEDS: Aspirin EC 81 mg TAB.EC (enteric coated) PO SCH (10:17)
[2020-12-12] MEDS: Fluticasone NASAL SPRAY 50MCG 16 gm SPRAY BTL INTRANASAL SCH (10:18)
[2020-12-12] MEDS: Triamcinolone 0.025% OINT 15 GM TUBE TOPICAL SCH ×2 (10:19→20:09)
[2020-12-12] MEDS: Potassium Chlor 10 meq TAB PO SCH (10:19)
[2020-12-12] MEDS: Polyethylene Glycol 3350 17 GM PACKET PO SCH (10:19)
[2020-12-12] MEDS: Al Hydrox/Mg Hydrox/Simet LIQ 30 ML UDC PO PRN ×2 (10:24→20:04)
[2020-12-12] MEDS: Pantoprazole VIAL 40 MG VIAL IV SCH (16:09)
[2020-12-12] MEDS: diPHENhydraMINE 25 mg TAB PO PRN (20:04)
[2020-12-13] MEDS: Morphine ORAL CONCENTRATE 5 MG/0.25 ML ORAL.SYRIN PO PRN ×2 (00:09→08:55)
[2020-12-13] MEDS: Morphine ORAL CONCENTRATE 5 MG/0.25 ML ORAL.SYRIN PO SCH ×6 (02:48→22:34)
[2020-12-13] MEDS: CMCS: Dabigatran 150 mg CAP (NF) PO SCH ×2 (08:53→21:15)
[2020-12-13] MEDS: Aspirin EC 81 mg TAB.EC (enteric coated) PO SCH (08:53)
[2020-12-13] MEDS: Al Hydrox/Mg Hydrox/Simet LIQ 30 ML UDC PO PRN ×2 (08:53→21:14)
[2020-12-13] MEDS: Triamcinolone 0.025% OINT 15 GM TUBE TOPICAL SCH (08:54)
[2020-12-13] MEDS: Fluticasone NASAL SPRAY 50MCG 16 gm SPRAY BTL INTRANASAL SCH (08:54)
[2020-12-13] MEDS: Polyethylene Glycol 3350 17 GM PACKET PO SCH (08:54)
[2020-12-13] MEDS: Pantoprazole VIAL 40 MG VIAL IV SCH (16:26)
[2020-12-14] MEDS: Morphine ORAL CONCENTRATE 5 MG/0.25 ML ORAL.SYRIN PO SCH ×6 (02:18→22:02)
[2020-12-14] MEDS: Ondansetron 4 mg VIAL 2 MG/ML 2 ml VIAL IV PRN (08:58)
[2020-12-14] MEDS: Al Hydrox/Mg Hydrox/Simet LIQ 30 ML UDC PO PRN ×2 (09:40→22:01)
[2020-12-14] MEDS: diPHENhydraMINE 25 mg TAB PO PRN (09:40)
[2020-12-14] MEDS: CMCS: Dabigatran 150 mg CAP (NF) PO SCH ×2 (09:40→21:57)
[2020-12-14] MEDS: Pantoprazole VIAL 40 MG VIAL IV SCH (16:58)
[2020-12-14] MEDS: Morphine ORAL CONCENTRATE 5 MG/0.25 ML ORAL.SYRIN PO PRN (19:24)
[2020-12-14] MEDS: Senna TAB 8.6 mg TAB PO SCH (21:52)
[2020-12-15] MEDS: Morphine ORAL CONCENTRATE 5 MG/0.25 ML ORAL.SYRIN PO SCH ×6 (01:55→22:34)
[2020-12-15] MEDS: Al Hydrox/Mg Hydrox/Simet LIQ 30 ML UDC PO PRN ×2 (09:27→20:29)
[2020-12-15] MEDS: CMCS: Dabigatran 150 mg CAP (NF) PO SCH ×2 (09:28→20:29)
[2020-12-15] MEDS: Morphine ORAL CONCENTRATE 5 MG/0.25 ML ORAL.SYRIN PO PRN ×2 (12:00→20:23)
[2020-12-15] MEDS: Pantoprazole VIAL 40 MG VIAL IV SCH (16:52)
[2020-12-15] MEDS: Senna TAB 8.6 mg TAB PO SCH (20:22)
[2020-12-16] MEDS: Morphine ORAL CONCENTRATE 5 MG/0.25 ML ORAL.SYRIN PO PRN ×2 (00:55→10:56)
[2020-12-16] MEDS: Morphine ORAL CONCENTRATE 5 MG/0.25 ML ORAL.SYRIN PO SCH ×6 (02:27→23:39)
[2020-12-16] MEDS: CMCS: Dabigatran 150 mg CAP (NF) PO SCH ×2 (08:19→21:16)
[2020-12-16] MEDS: Pantoprazole VIAL 40 MG VIAL IV SCH (16:05)
[2020-12-16] MEDS: Al Hydrox/Mg Hydrox/Simet LIQ 30 ML UDC PO PRN (21:17)
[2020-12-16] MEDS: Senna TAB 8.6 mg TAB PO SCH (21:20)
[2020-12-17] MEDS ORDERED: Morphine ORAL CONCENTRATE 5 MG/0.25 ML ORAL.SYRIN PO SCH
[2020-12-17] MEDS: Morphine ORAL CONCENTRATE 5 MG/0.25 ML ORAL.SYRIN PO SCH ×4 (05:34→23:42)
[2020-12-17] MEDS: CMCS: Dabigatran 150 mg CAP (NF) PO SCH ×2 (08:08→22:17)
[2020-12-17] MEDS: Al Hydrox/Mg Hydrox/Simet LIQ 30 ML UDC PO PRN ×2 (08:18→22:18)
[2020-12-17 12:55] LABS: ABS Basophils 0.1 10^3/ul (0-0.2); ABS Lymphocytes 0.6 10^3/ul (1.0-4.8); ABS Monocytes 0.7 10^3/ul (0-0.8); ABS Neutrophils 7.4 10^3/ul (1.5-7.7); Eosinophil % 0.5 %; Hematocrit 37 % (35-47); Hemoglobin 11.3 g/dL (12.0-16.0); Lymphocyte % 6.4 %; Mean Corpuscular HGB Conc 31 g/dL (31-36); Mean Corpuscular Hemoglobin 25 pg (27-31); Mean Corpuscular Volume 82 fL (80-97); Mean Platelet Volume 7.6 fL (7.4-10.4); Nucleated Red Blood Cells % 0.1; Platelet Count 272 10^3/uL (150-450); Red Blood Count 4.44 10^6 /uL (3.70-4.87); Red Cell Distribution Width 26 % (10-15); White Blood Count 8.8 10^3/uL (3.5-10.8)
[2020-12-17 13:15] LABS: BNP 1255 pg/mL (<=100)
[2020-12-17 13:35] LABS: Albumin/Globulin Ratio 0.8 (1-3); Ammonia 35 mcmol/L (16-53); BUN/Creatinine Ratio 16.9 (8-20); Calcium 9.1 mg/dL (8.6-10.3); EGFR African American 47.1 (>60); EGFR Non-African American 38.9 (>60); Globulin 3.7 g/dL (2-4); Potassium 4.9 mmol/L (3.5-5.0); Total Bilirubin 1.8 mg/dL (0.2-1.0); Total Protein 6.7 g/dL (6.4-8.9)
[2020-12-17] MEDS: Pantoprazole VIAL 40 MG VIAL IV SCH (16:02)
[2020-12-17 17:02] LABS: Urine Appearance Cloudy; Urine Bilirubin Negative (Negative); Urine Blood 2+ (Negative); Urine Color Amber; Urine Glucose Negative (Negative); Urine Ketones Negative (Negative); Urine Nitrite Negative (Negative); Urine Protein 1+(30 mg/dL) (Negative); Urine Specific Gravity 1.013 (1.002-1.030); Urine Urobilinogen Negative (Negative)
[2020-12-17 17:11] LABS: Urine Bacteria 1+ (Absent); Urine Red Blood Cell 3+(>10/hpf) (Absent); Urine Squamous Epithelial Cell Present (Absent); Urine White Blood Cell 3+(>20/hpf) (Absent)
[2020-12-17] MEDS: Senna TAB 8.6 mg TAB PO SCH (22:21)
[2020-12-18] MEDS: Morphine ORAL CONCENTRATE 5 MG/0.25 ML ORAL.SYRIN PO SCH ×3 (05:31→17:58)
[2020-12-18] MEDS: CMCS: Dabigatran 150 mg CAP (NF) PO SCH ×2 (08:01→21:06)
[2020-12-18] MEDS: Al Hydrox/Mg Hydrox/Simet LIQ 30 ML UDC PO PRN ×2 (08:02→21:06)
[2020-12-18] MEDS: Pantoprazole VIAL 40 MG VIAL IV SCH (17:59)
[2020-12-18] MEDS ORDERED: fentaNYL PATCH 12 MCG/HR 1 PATCH TRANSDERM SCH (18:30)
[2020-12-18] MEDS: fentaNYL Patch Check Q Shift NOTE FOLLOW UP SCH (19:20)
[2020-12-18] MEDS: Senna TAB 8.6 mg TAB PO SCH (21:06)
[2020-12-18] MEDS: Morphine ORAL CONCENTRATE 5 MG/0.25 ML ORAL.SYRIN PO PRN (23:53)
[2020-12-19] MEDS: Morphine ORAL CONCENTRATE 5 MG/0.25 ML ORAL.SYRIN PO PRN ×5 (05:48→20:03)
[2020-12-19] MEDS: fentaNYL Patch Check Q Shift NOTE FOLLOW UP SCH ×2 (05:53→19:35)
[2020-12-19] MEDS: CMCS: Dabigatran 150 mg CAP (NF) PO SCH ×2 (08:58→20:55)
[2020-12-19] MEDS: Al Hydrox/Mg Hydrox/Simet LIQ 30 ML UDC PO PRN ×2 (08:58→20:55)
[2020-12-19] MEDS ORDERED: Isosorbide Mononit ER 30mg TAB PO SCH (09:00)
[2020-12-19] MEDS: Pantoprazole VIAL 40 MG VIAL IV SCH (15:02)
[2020-12-19] MEDS: Isosorbide Mononit ER 30mg TAB PO SCH (17:58)
[2020-12-19] MEDS ORDERED: PHENAZOPYRIDINE 200 MG PO ONE (20:27)
[2020-12-19] MEDS: Senna TAB 8.6 mg TAB PO SCH (21:07)
[2020-12-20] MEDS: Morphine ORAL CONCENTRATE 5 MG/0.25 ML ORAL.SYRIN PO PRN ×5 (03:12→22:08)
[2020-12-20] MEDS: fentaNYL Patch Check Q Shift NOTE FOLLOW UP SCH (07:11)
[2020-12-20] MEDS: Isosorbide Mononit ER 30mg TAB PO SCH (09:29)
[2020-12-20] MEDS: CMCS: Dabigatran 150 mg CAP (NF) PO SCH ×2 (09:29→20:08)
[2020-12-20] MEDS: Al Hydrox/Mg Hydrox/Simet LIQ 30 ML UDC PO PRN (09:33)
[2020-12-20 14:22] LABS: Urine Appearance Clear; Urine Bilirubin Negative (Negative); Urine Blood 2+ (Negative); Urine Color Amber; Urine Glucose Negative (Negative); Urine Ketones Negative (Negative); Urine Nitrite Positive (Negative); Urine Protein 1+(30 mg/dL) (Negative); Urine Specific Gravity 1.016 (1.002-1.030); Urine Urobilinogen Negative (Negative)
[2020-12-20 14:44] LABS: Urine Bacteria 3+ (Absent); Urine Red Blood Cell 3+(>10/hpf) (Absent); Urine Squamous Epithelial Cell Present (Absent); Urine White Blood Cell 3+(>20/hpf) (Absent)
[2020-12-20] MEDS: Pantoprazole VIAL 40 MG VIAL IV SCH (17:03)
[2020-12-20] MEDS: Senna TAB 8.6 mg TAB PO SCH (20:08)
[2020-12-21] MEDS: Morphine ORAL CONCENTRATE 5 MG/0.25 ML ORAL.SYRIN PO PRN ×3 (06:02→14:32)
[2020-12-21] MEDS: CMCS: Dabigatran 150 mg CAP (NF) PO SCH ×2 (07:59→21:19)
[2020-12-21] MEDS: Isosorbide Mononit ER 30mg TAB PO SCH (07:59)
[2020-12-21] MEDS: Al Hydrox/Mg Hydrox/Simet LIQ 30 ML UDC PO PRN ×2 (07:59→21:18)
[2020-12-21] MEDS: Pantoprazole VIAL 40 MG VIAL IV SCH (17:28)
[2020-12-21] MEDS: Senna TAB 8.6 mg TAB PO SCH (21:18)
[2020-12-22] MEDS: Morphine ORAL CONCENTRATE 5 MG/0.25 ML ORAL.SYRIN PO PRN ×5 (00:35→23:16)
[2020-12-22] MEDS: Al Hydrox/Mg Hydrox/Simet LIQ 30 ML UDC PO PRN ×2 (08:09→23:25)
[2020-12-22] MEDS: Isosorbide Mononit ER 30mg TAB PO SCH (08:09)
[2020-12-22] MEDS: CMCS: Dabigatran 150 mg CAP (NF) PO SCH ×2 (08:10→23:18)
[2020-12-22] MEDS: Pantoprazole VIAL 40 MG VIAL IV SCH (18:19)
[2020-12-22] MEDS: diPHENhydraMINE 25 mg TAB PO PRN ×2 (18:23→23:46)
[2020-12-23] MEDS: Isosorbide Mononit ER 30mg TAB PO SCH (09:57)
[2020-12-23] MEDS: Al Hydrox/Mg Hydrox/Simet LIQ 30 ML UDC PO PRN (09:58)
[2020-12-23] MEDS: CMCS: Dabigatran 150 mg CAP (NF) PO SCH (09:58)
[2020-12-23] MEDS: Morphine ORAL CONCENTRATE 5 MG/0.25 ML ORAL.SYRIN PO PRN ×2 (10:27→17:43)
[2020-12-23] MEDS ORDERED: guaiFENesin 100 mg/5 ml LIQ unit dose cup PO PRN (11:41)
[2020-12-23] MEDS: Pantoprazole VIAL 40 MG VIAL IV SCH (16:11)
[2020-12-24] MEDS: Morphine ORAL CONCENTRATE 5 MG/0.25 ML ORAL.SYRIN PO PRN ×5 (00:56→17:32)
[2020-12-24] MEDS: CMCS: Dabigatran 150 mg CAP (NF) PO SCH ×3 (00:57→20:58)
[2020-12-24] MEDS: Al Hydrox/Mg Hydrox/Simet LIQ 30 ML UDC PO PRN ×2 (01:00→09:28)
[2020-12-24] MEDS: diPHENhydraMINE 25 mg TAB PO PRN ×2 (01:00→23:41)
[2020-12-24] MEDS: Isosorbide Mononit ER 30mg TAB PO SCH (09:29)
[2020-12-24] MEDS: Pantoprazole VIAL 40 MG VIAL IV SCH (15:56)
[2020-12-25] MEDS: Morphine ORAL CONCENTRATE 5 MG/0.25 ML ORAL.SYRIN PO PRN ×6 (00:28→19:52)
[2020-12-25] MEDS: CMCS: Dabigatran 150 mg CAP (NF) PO SCH ×2 (09:10→19:54)
[2020-12-25] MEDS: diPHENhydraMINE 25 mg TAB PO PRN ×2 (09:10→16:46)
[2020-12-25] MEDS: Isosorbide Mononit ER 30mg TAB PO SCH (09:10)
[2020-12-25] MEDS: Al Hydrox/Mg Hydrox/Simet LIQ 30 ML UDC PO PRN ×2 (09:15→20:04)
[2020-12-25] MEDS: Pantoprazole VIAL 40 MG VIAL IV SCH (14:49)
[2020-12-26] MEDS: diPHENhydraMINE 25 mg TAB PO PRN ×3 (00:03→21:26)
[2020-12-26] MEDS: Morphine ORAL CONCENTRATE 5 MG/0.25 ML ORAL.SYRIN PO PRN ×6 (00:10→21:27)
[2020-12-26] MEDS: CMCS: Dabigatran 150 mg CAP (NF) PO SCH ×2 (07:27→20:15)
[2020-12-26] MEDS: Isosorbide Mononit ER 30mg TAB PO SCH (07:28)
[2020-12-26] MEDS: Al Hydrox/Mg Hydrox/Simet LIQ 30 ML UDC PO PRN ×2 (07:31→20:21)
[2020-12-26] MEDS: Pantoprazole VIAL 40 MG VIAL IV SCH (15:26)
[2020-12-27] MEDS: Morphine ORAL CONCENTRATE 5 MG/0.25 ML ORAL.SYRIN PO PRN ×8 (01:19→22:43)
[2020-12-27] MEDS: diPHENhydraMINE 25 mg TAB PO PRN ×2 (03:15→11:54)
[2020-12-27] MEDS: CMCS: Dabigatran 150 mg CAP (NF) PO SCH ×2 (08:21→19:47)
[2020-12-27] MEDS: Isosorbide Mononit ER 30mg TAB PO SCH (08:21)
[2020-12-27] MEDS: Ondansetron 4 mg VIAL 2 MG/ML 2 ml VIAL IV PRN (08:21)
[2020-12-27] MEDS: Pantoprazole VIAL 40 MG VIAL IV SCH (16:49)
[2020-12-27] MEDS: Al Hydrox/Mg Hydrox/Simet LIQ 30 ML UDC PO PRN (19:51)
[2020-12-28] MEDS: Morphine ORAL CONCENTRATE 5 MG/0.25 ML ORAL.SYRIN PO PRN ×7 (01:51→22:21)
[2020-12-28] MEDS: Senna TAB 8.6 mg TAB PO PRN ×2 (04:56→19:36)
[2020-12-28] MEDS: Ondansetron 4 mg VIAL 2 MG/ML 2 ml VIAL IV PRN ×2 (07:36→13:07)
[2020-12-28] MEDS: CMCS: Dabigatran 150 mg CAP (NF) PO SCH ×2 (07:45→19:36)
[2020-12-28] MEDS: Isosorbide Mononit ER 30mg TAB PO SCH (07:45)
[2020-12-28] MEDS: Al Hydrox/Mg Hydrox/Simet LIQ 30 ML UDC PO PRN (07:49)
[2020-12-28] MEDS: Pantoprazole VIAL 40 MG VIAL IV SCH (16:28)
[2020-12-29] MEDS: Morphine ORAL CONCENTRATE 5 MG/0.25 ML ORAL.SYRIN PO PRN ×6 (04:01→23:22)
[2020-12-29] MEDS: Isosorbide Mononit ER 30mg TAB PO SCH (07:21)
[2020-12-29] MEDS: CMCS: Dabigatran 150 mg CAP (NF) PO SCH ×2 (07:21→20:46)
[2020-12-29] MEDS: Al Hydrox/Mg Hydrox/Simet LIQ 30 ML UDC PO PRN ×2 (07:26→20:46)
[2020-12-30] MEDS: Morphine ORAL CONCENTRATE 5 MG/0.25 ML ORAL.SYRIN PO PRN ×7 (01:41→20:49)
[2020-12-30] MEDS: CMCS: Dabigatran 150 mg CAP (NF) PO SCH ×2 (07:58→20:47)
[2020-12-30] MEDS: Isosorbide Mononit ER 30mg TAB PO SCH (07:58)
[2020-12-30] MEDS: Al Hydrox/Mg Hydrox/Simet LIQ 30 ML UDC PO PRN ×2 (08:07→20:46)
[2020-12-30] MEDS: Ondansetron 4 mg VIAL 2 MG/ML 2 ml VIAL IV PRN (15:47)
[2020-12-31] MEDS: diPHENhydraMINE 25 mg TAB PO PRN (04:32)
[2020-12-31] MEDS: Morphine ORAL CONCENTRATE 5 MG/0.25 ML ORAL.SYRIN PO PRN ×4 (09:05→20:52)
[2020-12-31] MEDS: Al Hydrox/Mg Hydrox/Simet LIQ 30 ML UDC PO PRN ×2 (09:33→20:48)
[2020-12-31] MEDS: CMCS: Dabigatran 150 mg CAP (NF) PO SCH ×2 (09:33→20:48)
[2021-01-01] MEDS: Morphine ORAL CONCENTRATE 5 MG/0.25 ML ORAL.SYRIN PO PRN ×5 (01:34→22:46)
[2021-01-01] MEDS: CMCS: Dabigatran 150 mg CAP (NF) PO SCH ×2 (07:25→20:00)
[2021-01-01] MEDS: Al Hydrox/Mg Hydrox/Simet LIQ 30 ML UDC PO PRN (20:00)
[2021-01-02] MEDS: Morphine ORAL CONCENTRATE 5 MG/0.25 ML ORAL.SYRIN PO PRN ×6 (02:53→21:36)
[2021-01-02] MEDS: diPHENhydraMINE 25 mg TAB PO PRN ×2 (02:54→15:17)
[2021-01-02] MEDS: CMCS: Dabigatran 150 mg CAP (NF) PO SCH ×2 (07:50→21:35)
[2021-01-02] MEDS: Al Hydrox/Mg Hydrox/Simet LIQ 30 ML UDC PO PRN ×2 (07:57→21:36)
[2021-01-02 17:11] LABS: Urine Appearance Clear; Urine Bilirubin Negative (Negative); Urine Blood Negative (Negative); Urine Color Amber; Urine Glucose Negative (Negative); Urine Ketones Negative (Negative); Urine Nitrite Negative (Negative); Urine Protein 1+(30 mg/dL) (Negative); Urine Specific Gravity 1.016 (1.002-1.030); Urine Urobilinogen Negative (Negative)
[2021-01-02 17:12] LABS: Urine Bacteria Absent (Absent); Urine Red Blood Cell Absent (Absent); Urine Squamous Epithelial Cell Present (Absent); Urine White Blood Cell 1+(6-10/hpf) (Absent)
[2021-01-03] MEDS: Morphine ORAL CONCENTRATE 5 MG/0.25 ML ORAL.SYRIN PO PRN ×4 (06:24→19:56)
[2021-01-03] MEDS: Al Hydrox/Mg Hydrox/Simet LIQ 30 ML UDC PO PRN ×2 (09:10→19:56)
[2021-01-03] MEDS: CMCS: Dabigatran 150 mg CAP (NF) PO SCH ×2 (09:10→19:56)
[2021-01-04] MEDS: Morphine ORAL CONCENTRATE 5 MG/0.25 ML ORAL.SYRIN PO PRN ×5 (03:39→20:00)
[2021-01-04] MEDS: diPHENhydraMINE 25 mg TAB PO PRN ×2 (07:42→15:59)
[2021-01-04] MEDS ORDERED: Morphine ORAL CONCENTRATE 5 MG/0.25 ML ORAL.SYRIN PO PRN (09:59)
[2021-01-04] MEDS: Al Hydrox/Mg Hydrox/Simet LIQ 30 ML UDC PO PRN ×2 (10:03→19:59)
[2021-01-04] MEDS: CMCS: Dabigatran 150 mg CAP (NF) PO SCH ×2 (10:03→19:59)
[2021-01-05] MEDS: diPHENhydraMINE 25 mg TAB PO PRN (04:25)
[2021-01-05] MEDS: Morphine ORAL CONCENTRATE 5 MG/0.25 ML ORAL.SYRIN PO PRN ×4 (04:26→20:10)
[2021-01-05] MEDS: CMCS: Dabigatran 150 mg CAP (NF) PO SCH ×2 (08:13→20:09)
[2021-01-05] MEDS: Al Hydrox/Mg Hydrox/Simet LIQ 30 ML UDC PO PRN ×2 (08:14→20:08)
[2021-01-06] MEDS: Morphine ORAL CONCENTRATE 5 MG/0.25 ML ORAL.SYRIN PO PRN ×5 (00:38→20:39)
[2021-01-06] MEDS: Al Hydrox/Mg Hydrox/Simet LIQ 30 ML UDC PO PRN ×2 (08:12→20:01)
[2021-01-06] MEDS: CMCS: Dabigatran 150 mg CAP (NF) PO SCH ×2 (08:12→20:01)
[2021-01-06] MEDS ORDERED: metroNIDAZOLE VAGINAL 0.75% 70 GM VAGINAL SCH (21:00)
[2021-01-07] MEDS: Morphine ORAL CONCENTRATE 5 MG/0.25 ML ORAL.SYRIN PO PRN ×3 (01:24→11:20)
[2021-01-07 08:22] VITALS: BP 107/64
[2021-01-07] MEDS: CMCS: Dabigatran 150 mg CAP (NF) PO SCH (10:10)
[2021-01-07] MEDS: Al Hydrox/Mg Hydrox/Simet LIQ 30 ML UDC PO PRN (10:13)
== END 2021-01-07 13:10 | DRG 391 ==
LOC: ED 10:24 → MEDTELE 14:02 → MED 12-09 16:53
PROVIDERS: ADMIT Internal Medicine; ATTEND Hospitalist